=== PATIENT | male | born 1960 | race Two or more races ===

== ENCOUNTER → 2020-01-20 08:00 | Outpatient (BNVA) | payer MEDICARE, MEDICAID, SELFPAY | PROVIDERS: Visit Provider Family Medicine Adult Medicine | DX: M96.1 Postlaminectomy syndrome, not elsewhere classified (principal); M54.12 Radiculopathy, cervical region; Z91.041 Radiographic dye allergy status; Z88.8 Allergy status to other drugs, medicaments and biological substances; Z79.899 Other long term (current) drug therapy | CPT/HCPCS: 99212 ==

== ENCOUNTER → 2020-01-21 09:25 | Outpatient (BNVA) | payer MEDICARE, MEDICAID, SELFPAY | PROVIDERS: PCP Hospitalist; Visit Provider Anesthesiology | DX: M96.1 Postlaminectomy syndrome, not elsewhere classified (principal); M54.12 Radiculopathy, cervical region; M48.061 Spinal stenosis, lumbar region without neurogenic claudication; M54.16 Radiculopathy, lumbar region | CPT/HCPCS: 99212 ==

== ENCOUNTER 2020-02-17 08:44 | Emergency (ER) | payer MEDICARE, MEDICAID, SELFPAY ==
[2020-02-17 09:09] VITALS: BP 120/78; PULSE 95; RESP 14; TEMP 36.9; O2SAT 97; BMI 29.5
--- NOTE | 2020-02-17 09:16 | ED_ITS ---
HPI - General Adult General Chief complaint: General Medical Stated complaint: joint pain Time Seen by Provider: 02/17/20 08:48 Source: patient Mode of arrival: ambulatory Limitations: no limitations History of Present Illness HPI narrative: Patient presents to ED for joint pain. Patient states pain in bilateral ankles, knees, hands, elbow joints. Patient also states back and neck pain. Patient states having symptoms since last night. patient states having chills. Patient states no fever, chills, coughing up blood, recent trauma. Patient admits to cough. Patient admits to history of arthritis. Related Data Home Medications Medication Instructions Recorded Confirmed linagliptin 5 mg tablet 5 mg PO DAILY 01/29/20 01/29/20 skin cleanser combination no.8 ea TOPICAL 01/29/20 01/29/20 Previous Rx's Medication Instructions Recorded omeprazole 40 mg capsule,delayed 40 mg PO BID 30 Days #60 cap 01/05/20 release methadone 5 mg tablet 5 mg PO Q12H 30 Days #60 tab 01/20/20 naloxone 4 mg/actuation nasal spray 1 spray INTRANASAL Q2M #1 ea 01/20/20 prednisone 10 mg tablet 10 mg PO DAILY 8 Days #20 tab 01/29/20 naproxen 500 mg PO BID PRN #20 tab 02/17/20 Allergies Allergy/AdvReac Type Severity Reaction Status Date / Time fentanyl Allergy Intermediate itching Verified 01/29/20 12:00 morphine [Amber] Allergy Intermediate itch Verified 01/29/20 12:00 Iodinated Contrast Media Allergy Mild DIFFICULTY Verified 01/29/20 11:47 [IV Dye, Iodine Containing] BREATHING,VOMITING metformin AdvReac Intermediate stomach Verified 01/29/20 12:[address] scan dye Allergy Severe shortness Uncoded 01/29/20 12:00 of breath MRI DYE Allergy Severe Shortness Uncoded 01/29/20 12:00 of Breath Review of Systems Review of Systems: Yes all other systems are reviewed and are negative Constitutional: Constitutional: Reports as per HPI, Reports no additional constitutional complaints, Reports body ache(s), Reports chills, Denies fever(s) and Reports headache(s) ( Mild) Eyes: Eyes: Reports as per HPI and Reports no additional eye complaints ENT: Reports system reviewed and no additional complaints, except as documented, Reports as per HPI and Reports headache(s) ( Mild) Cardiovascular: Cardiovascular: Reports as per HPI and Reports no additional cardiovascular complaints Respiratory: Respiratory: Reports as per HPI, Reports no additional respiratory complaints and Reports cough Gastrointestinal: Gastrointestinal: Reports as per HPI and Reports no additional gastrointestinal complaints Genitourinary: Genitourinary: Reports no additional male genitourinary complaints and Reports as per HPI Musculoskeletal: Musculoskeletal: Reports no additional musculoskeletal complaints, Reports as per HPI, Reports back pain, Reports myalgias and Reports arthralgias Neurologic: Reports system reviewed and no additional complaints, except as documented, Reports as per HPI and Reports headache(s) ( Mild) Psychiatric: Psychiatric: Reports no additional psychiatric complaints and Reports as per HPI [facility] Past Medical History Medical History Arthritis Cervical radiculopathy Diabetes High cholesterol Lumbar post-laminectomy syndrome Lumbar radiculopathy, chronic Lumbar spinal stenosis Social History Social History Advance Directives: No Advance Directives Information Provided: No Physical Exam Vital Signs: Vital Signs: Last Vital Signs Temp 98.5 F 02/17/20 09:09 Pulse 95 02/17/20 09:09 Resp 14 02/17/20 09:09 BP 120/78 02/17/20 09:09 Pulse Ox 97 02/17/20 09:09 Body Mass Index 29.5 Const: General: cooperative, healthy appearing, comfortable, no acute distress, well developed, alert and awake Orientation/consciousness: patient oriented x3 HENMT: Head: Yes normal to inspection and Yes No palpable skull fracture present Ears: hearing grossly normal bilaterally, external ears normal and TM's normal bilaterally Face and sinus: Yes normal facial exam and Yes sinuses nontender Mouth: Normal oral and palatal mucosa present and lip normal Teeth and gingiva: dentition normal and gingiva normal Throat: Yes posterior oropharynx normal, Yes tonsils normal and Yes uvula midline Eyes: General: appearance normal, both eyes and all related structures Neck: Neck: Yes normal visual inspection, Yes full ROM, Yes no lymphadenopathy, Yes no meningeal signs, Yes trachea midline, Yes supple and No tender Chest: Chest palpation & inspection: normal inspection of the chest and no localized rib tenderness Resp: Effort & Inspection: normal respiratory effort and able to speak in complete sentences Auscultation: clear to auscultation bilaterally Cardio: Jugular venous distension: no JVD Heart sounds: S1 normal heart sound present and S2 normal heart sound present GI: Inspection: Yes normal to inspection and No abdominal wall ecchymosis Palpation (GI): Soft to palpation, not firm, nontender, no guarding and not rigid : General: No CVA tenderness and Yes no CVA tenderness Back/Spine/Pelvis: Back: no CVA tenderness, No CVA tenderness and No back tenderness Skin: General skin exam: no rashes or lesions noted Neuro: General: patient oriented x3, gait normal, no meningeal signs and CN's II-XI intact bilaterally Extrem: Other: negative for any swelling, redness, ecchymosis,warmth or deformities of joints all extremities. General: Yes normal to inspection and Yes full ROM Course Course Course Narrative: history physical exam indicate more viral syndrome. No need for x-ray of extremities. Patient given Motrin for pain. Patient will be swabbed for COVID-19 virus Reevaluation(s) Reevaluation #1: patient is on for COVID-19 virus. Patient educated on self- isolation. Patient given Motrin for pain Time: 09:22 Medical Decision Making [facility] Narrative Medical decision making narrative: viral syndrome Discharge Plan Discharge Clinical Impression: Acute viral syndrome Patient Disposition: Home, Self-Care Instructions: Viral Syndrome (ED) Additional Instructions: return to the ED immediately for weakness, intractable fever, chills, chest pain, shortness of breath, coughing up blood, redness/swelling / warmth of the joints, or any other concerning symptoms. recommend 14 days self-isolation if COVID test come back positive. Prescriptions: New naproxen 500 mg tablet 500 mg PO BID PRN (Reason: pain) Qty: 20 RF: 0 No Action omeprazole 40 mg capsule,delayed release(DR/EC) 40 mg PO BID 30 Days Qty: 60 RF: 3 Zanfel Cleanser topical RF: 0 Tradjenta 5 mg tablet 5 mg PO DAILY RF: 0 prednisone 10 mg tablet 10 mg PO DAILY 8 Days Qty: 20 RF: 0 methadone 5 mg tablet 5 mg PO Q12H 30 Days Qty: 60 RF: 0 Narcan 4 mg/actuation spray,non-aerosol 1 spray intranasal Q2M Qty: 1 RF: 0 Referrals: Isela Bernstein NP [Primary Care Provider] - 2 days ( Viral syndrome. COVID- 19 test pending) Interventions: ED Discharge Assessment Last Done: 12/01/20 09:44 Discharge Date/Time: 02/17/20 09:44 Print Language: Nepali
[2020-02-17] MEDS: Ibuprofen 800 MG TABLET PO (09:25)
== END 2020-02-17 09:44 | disposition home or self-care (01) ==
PROVIDERS: Physician Assistant; Emergency Provider Emergency Medicine; PCP Hospitalist
DX: B34.9 Viral infection, unspecified (principal); Z20.828 Contact with and (suspected) exposure to other viral communicable diseases; E11.9 Type 2 diabetes mellitus without complications
CPT/HCPCS: 99283; U0003

== ENCOUNTER 2020-03-02 05:35 | Outpatient (REF) | payer MEDICARE, MEDICAID, SELFPAY | END 2020-03-02 05:36 | disposition home or self-care (01) | LOC: HO.RADIR 05:35 | PROVIDERS: Visit Provider Anesthesiology | DX: Z13.89 Encounter for screening for other disorder (principal) ==

== ENCOUNTER 2020-03-09 06:18 | Outpatient (REF) | payer MEDICARE, MEDICAID, SELFPAY | END 2020-03-09 06:19 | disposition home or self-care (01) | LOC: HO.LAB 06:18 | PROVIDERS: PCP Hospitalist; Visit Provider Internal Medicine | DX: Z20.828 Contact with and (suspected) exposure to other viral communicable diseases (principal) | CPT/HCPCS: C9803; U0003 ==

== ENCOUNTER → 2020-03-18 08:55 | Outpatient (BNVA) | payer MEDICARE, MEDICAID, SELFPAY | PROVIDERS: PCP Hospitalist; Visit Provider Family Medicine Adult Medicine | DX: M54.16 Radiculopathy, lumbar region (principal); M96.1 Postlaminectomy syndrome, not elsewhere classified | CPT/HCPCS: 99212 ==

== ENCOUNTER → 2020-04-15 11:18 | Outpatient (BNVA) | payer MEDICARE, MEDICAID, SELFPAY | PROVIDERS: PCP Hospitalist; Visit Provider Nurse Practitioner | DX: Z13.89 Encounter for screening for other disorder (principal) | CPT/HCPCS: Q3014 ==

== ENCOUNTER → 2020-04-21 08:02 | Outpatient (BNVA) | payer MEDICARE, MEDICAID, SELFPAY | PROVIDERS: PCP Hospitalist; Visit Provider Nurse Practitioner Family | DX: M96.1 Postlaminectomy syndrome, not elsewhere classified (principal); M54.16 Radiculopathy, lumbar region; M54.12 Radiculopathy, cervical region; M48.061 Spinal stenosis, lumbar region without neurogenic claudication; Z79.899 Other long term (current) drug therapy | CPT/HCPCS: 99212 ==

== ENCOUNTER 2020-11-12 23:04 | Emergency (ER) | payer MEDICARE, MEDICAID, SELFPAY ==
--- NOTE | 2020-11-12 23:32 | PC.NURSE ---
PT CALLED, NOT IN WAITING ROOM.
--- NOTE | 2020-11-12 23:48 | PC.NURSE ---
SECOND CALL, NOT IN WR.
== END 2020-11-13 00:49 | disposition left against medical advice (07) ==
PROVIDERS: Emergency Provider Emergency Medicine; PCP Hospitalist
DX: M54.9 Dorsalgia, unspecified (principal); M79.606 Pain in leg, unspecified

== ENCOUNTER → 2020-11-16 08:06 | Outpatient (BNVA) | payer MEDICARE, MEDICAID, SELFPAY | PROVIDERS: PCP Hospitalist; Visit Provider Family Medicine Adult Medicine | DX: M96.1 Postlaminectomy syndrome, not elsewhere classified (principal); M54.12 Radiculopathy, cervical region | CPT/HCPCS: 99212 ==

== ENCOUNTER 2020-11-21 22:16 | Emergency (ER) | payer MEDICARE, MEDICAID, SELFPAY ==
[2020-11-21 22:20] VITALS: BP 169/57; PULSE 87; RESP 18; TEMP 36.6; O2SAT 95; BMI 28.2
--- NOTE | 2020-11-21 23:31 | ED_ITS ---
HPI - Back Pain/Injury General Chief Complaint: Back Pain/Injury Stated Complaint: back pain Time Seen by Provider: 11/21/20 22:59 Source: patient Mode of arrival: ambulatory Limitations: no limitations History of Present Illness HPI Narrative: Patient comes to emergency room complaining of lower back pain radiating towards both legs. Patient states he has had chronic back pain in the past, including back surgeries. Patient states that yesterday he was helping a friend push a car, which exacerbated his pain. Patient denies any urinary retention/incontinence. Patient states that the pain is also exacerbated more than usual because he is taking a very small dose of methadone because he just recently moved from a different state and he is waiting to be seen as a new patient in the clinic, he is running out of methadone has been rationing his doses. Patient denies fever, no chills Related Data Home Medications Medication Instructions Recorded Confirmed sucralfate 1 gram tablet (Carafate) 2 g PO DAILY tab 04/15/20 11/16/20 Previous Rx's Medication Instructions Recorded naloxone 4 mg/actuation nasal 1 spray INTRANASAL Q2M #1 ea 01/20/20 spray (Narcan) naproxen 500 mg tablet 500 mg PO BID PRN 30 Days #60 tab 03/25/20 methadone 5 mg tablet 5 mg PO Q12H 30 Days #60 tab 04/21/20 linagliptin 5 mg tablet (Tradjenta) 5 mg PO DAILY #90 tab 04/23/20 omeprazole 40 mg capsule,delayed 40 mg PO BID #180 cap 09/28/20 release acetaminophen 500 mg tablet 500 mg PO Q6H PRN #20 tab 11/21/20 Allergies Allergy/AdvReac Type Severity Reaction Status Date / Time fentanyl Allergy Intermediate itching Verified 11/16/20 08:35 morphine [Amber] Allergy Intermediate itch Verified 11/16/20 08:35 Iodinated Contrast Media Allergy Mild DIFFICULTY Verified 11/16/20 08:35 [IV Dye, Iodine Containing] BREATHING,VOMITING metformin AdvReac Intermediate stomach Verified 11/16/20 08:35 pain Review of Systems Review of Systems: Constitutional : No Weight loss, No Fever, No Chills, No Night Sweats, No Fatigue, No Malaise ENT/Mouth : No Hearing loss, No Ear Pain, No Nasal Congestion, No Sinus Pain, No Hoarseness, No sore throat, No Rhinorrhea, No Swallowing Difficulty Eyes: No Eye Pain, No Swelling, No Redness, No Foreign Body, No Discharge, No Vision Changes Cardiovascular : No Chest Pain, No SOB, No Dyspnea on Exertion, No Orthopnea, No Edema, No Palpitations Respiratory : No Cough, No Sputum, No Wheezing, No Smoke Exposure, No Dyspnea Gastrointestinal : No Nausea, No Vomiting, No Diarrhea, No Constipation, No abdominal Pain, No Hematochezia, No Melena Genitourinary : no irregular bleeding, No Dysuria, No Urinary Frequency, No Hematuria, No Urinary Incontinence, No Urgency, No Flank Pain, No Urinary Flow Changes, No Hesitancy Musculoskeletal : Complaining of acute on chronic back pain exacerbated by movement, No joint pain, No Myalgias, No Joint Swelling Skin : No Skin Lesions, No rash Neuro : No Weakness, No Numbness, No Paresthesias, No Loss of Consciousness, No Dizziness, No Headache Psych : No Anxiety/Panic, No Depression, No SI/HI/AH/VH, No Social Issues, Heme/Lymph: No Bruising, No Bleeding,No Lymphadenopathy Endocrine : No Polyuria, No Polydipsia, No Temperature Intolerance [facility] Past Medical History Medical History Arthritis Cervical radiculopathy Diabetes High cholesterol Lumbar post-laminectomy syndrome Lumbar radiculopathy, chronic Lumbar spinal stenosis Surgical History History of cholecystectomy History of elbow surgery History of lumbar fusion Family History Family History Father Liver problem Alcoholism Mother No problems noted. Brother CAD (coronary artery disease) Social History Social History Household Members: Spouse and Children Alcohol intake: never Advance Directives: No Physical Exam Vital Signs: Vital Signs: Last Vital Signs Temp 98 F 11/21/20 22:20 Pulse 87 11/21/20 22:20 Resp 18 11/21/20 22:20 BP 169/57 H 11/21/20 22:20 Pulse Ox 95 11/21/20 22:20 Body Mass Index 28.2 Const: Other: Appearance: Alert. Oriented X3. No acute distress. Eyes: Pupils equal, round and reactive to light. ENT: Pharynx normal. Neck: Normal inspection. Neck supple. No lymph nodes noted. No crepitus CVS: Normal heart rate and rhythm. Pulses normal. Normal S1 and S2 Respiratory: No respiratory distress. Breath sounds normal. No Wheezing. No rales Abdomen: Soft and nontender. No rigidity. No distention. good BS x4 Skin: Skin warm and dry. Normal skin color. Normal skin turgor. Back: Negative straight leg raise test bilaterally mild discomfort flexing and extending the back, Extremities: No lower extremity edema. No lower extremity edema. No Lacerations. No Rash Neuro: Oriented X 3. No motor deficit. No sensory deficit. Moving all extermities. No slurred speech. Course Course Course Narrative: Patient's pain is musculoskeletal, cauda equina not suspected. Patient was given a dose of IM Decadron, patient has gastritis and cannot take Toradol. Patient given 1 dose of p.o. Tylenol Discharge Plan Discharge Clinical Impression: Chronic lower back pain Patient Disposition: Home, Self-Care Instructions: Low Back Strain (ED), Lower Back Exercises (ED) Additional Instructions: Please follow-up with your primary care physician tomorrow. If you have any worsening or new symptoms, please return to the emergency room or call 911 Prescriptions: New acetaminophen 500 mg tablet 500 mg PO Q6H PRN (Reason: pain) Qty: 20 RF: 0 No Action linagliptin [Tradjenta] 5 mg tablet 5 mg PO DAILY Qty: 90 RF: 0 omeprazole 40 mg capsule,delayed release(DR/EC) 40 mg PO BID Qty: 180 RF: 0 naproxen 500 mg tablet 500 mg PO BID PRN (Reason: pain) 30 Days Qty: 60 RF: 2 Narcan 4 mg/actuation spray,non-aerosol 1 spray intranasal Q2M Qty: 1 RF: 0 sucralfate [Carafate] 1 gram tablet 2 g PO DAILY RF: 0 methadone 5 mg tablet 5 mg PO Q12H 30 Days Qty: 60 RF: 0
[2020-11-21] MEDS: dexAMETHasone sod phosphate 4 MG/ML VIAL 6 MG IM (23:42)
[2020-11-21] MEDS: Acetaminophen 325 MG TABLET 650 MG PO (23:42)
== END 2020-11-22 00:20 | disposition home or self-care (01) ==
PROVIDERS: Emergency Provider Emergency Medicine; PCP Hospitalist
DX: M54.5 Low back pain (principal); Z79.899 Other long term (current) drug therapy
CPT/HCPCS: 96372; 99284; J1100

== ENCOUNTER → 2020-11-25 08:00 | Outpatient (REF) | payer MEDICARE, MEDICAID, SELFPAY ==
--- NOTE | 2020-11-25 09:12 | ECG_ITS ---
Test Reason : RADICULOPATHY CERVICAL REG. Blood Pressure : / mmHG Vent. Rate : 078 BPM Atrial Rate : 078 BPM P-R Int : 148 ms QRS Dur : 114 ms QT Int : 376 ms P-R-T Axes : 061 -53 040 degrees QTc Int : 428 ms Normal sinus rhythm Incomplete right bundle branch block Left anterior fascicular block Minimal voltage criteria for LVH, may be normal variant ( R in aVL ) Abnormal ECG When compared with ECG of 10-NOV-2019 08:55, Incomplete right bundle branch block is now Present Referred By: Carlos Eduardo Baxter Electronically Signed By:TITUS ALANIZ
== END ==
LOC: HO.CARD 08:00
PROVIDERS: PCP Hospitalist; Visit Provider Family Medicine Adult Medicine
DX: M54.12 Radiculopathy, cervical region (principal); M96.1 Postlaminectomy syndrome, not elsewhere classified
CPT/HCPCS: 93005; 99212

== ENCOUNTER 2020-11-25 09:39 | Emergency (ER) | payer MEDICARE, MEDICAID, SELFPAY | END 2020-11-25 10:24 | disposition left against medical advice (07) | PROVIDERS: Emergency Provider Emergency Medicine; PCP Hospitalist | DX: R10.9 Unspecified abdominal pain (principal) ==

== ENCOUNTER 2020-11-26 06:15 | Emergency (ER) | payer MEDICARE, MEDICAID, SELFPAY ==
--- NOTE | ~2020-11-26 | CT_ITS ---
EXAMINATION: CT ABDOMEN AND PELVIS WITHOUT CONTRAST CLINICAL INFORMATION: Epigastric, right lower quadrant pain COMPARISON: 11/17/2018 TECHNIQUE: Multidetector volumetric imaging was performed from the lung bases through the pubic symphysis. Sagittal and coronal reformatted images were obtained on the technologist workstation. This CT examination was performed using dose optimization techniques as appropriate, variously including the following: *Automated exposure control *Adjustment of mA and/or kV according to patient size (this includes techniques or standardized protocols for targeted exams where dose is matched to indication/reason for exam; i.e. extremities or head) *Use of iterative reconstruction technique FINDINGS: The lack of intravenous contrast limits evaluation of the solid visceral organs including the liver, spleen, pancreas, and kidneys. LUNG BASES: The visualized lung bases are unremarkable. LIVER, GALLBLADDER, AND BILIARY TREE: Liver is diffusely hypoattenuating consistent with diffuse hepatic steatosis. Borderline hepatomegaly. No suspicious focal liver lesion. Status post cholecystectomy. PANCREAS: Limited non-contrast evaluation is normal. No chapincito-pancreatic fluid. SPLEEN: Limited non-contrast evaluation is normal. ADRENAL GLANDS: Normal; no adrenal mass. KIDNEYS AND URETERS: 5 mm nonobstructing left lower pole calculus, perhaps slightly larger than on the prior study. No hydronephrosis or solid mass. GASTROINTESTINAL TRACT: Stomach and small bowel are nondilated. Normal appendix. Diverticulosis without evidence of colitis or diverticulitis. ABDOMINAL WALL: No hernia seen. LYMPH NODES: No pathologically enlarged lymph nodes in the abdomen or pelvis. VASCULAR: Normal caliber abdominal aorta. BLADDER: Unremarkable. PELVIC VISCERA: Mild prostatomegaly. OSSEOUS STRUCTURES: Prior discectomy and fusion at L5-S1. No acute or suspicious osseous abnormality. Lower lumbar facet arthropathy. Bilateral L5 pars defects. CT/CT abdomen pelvis wo con IMPRESSION: No acute CT findings.
[2020-11-26 06:33] VITALS: BP 142/84; PULSE 87; RESP 16; TEMP 36.6; O2SAT 97; BMI 27.7
--- NOTE | 2020-11-26 06:53 | ED_ITS ---
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 Mode of arrival: ambulatory Limitations: no limitations History of Present Illness MD elicited complaint: abdominal pain Pertinent past history: gastritis Onset (ago): month(s) (1) Pain Consistency: intermittent Location: epigastric and periumbilical Severity: moderate Quality: burning Radiation: none Migration to: no migration Exacerbating factors: eating Relieving factors: nothing Context: history of similar episodes Associated symptoms: diarrhea Treatments prior to arrival: antacids Related Data Home Medications Medication Instructions Recorded Confirmed sucralfate 1 gram tablet (Carafate) 2 g PO DAILY tab 04/15/20 11/25/20 Previous Rx's Medication Instructions Recorded naloxone 4 mg/actuation nasal 1 spray INTRANASAL Q2M #1 ea 01/20/20 spray (Narcan) naproxen 500 mg tablet 500 mg PO BID PRN 30 Days #60 tab 03/25/20 linagliptin 5 mg tablet (Tradjenta) 5 mg PO DAILY #90 tab 04/23/20 omeprazole 40 mg capsule,delayed 40 mg PO BID #180 cap 09/28/20 release acetaminophen 500 mg tablet 500 mg PO Q6H PRN #20 tab 11/21/20 buprenorphine 7.5 mcg/hour weekly 1 patch TRANSDERMAL Q7D 28 Days #4 11/25/20 transdermal patch (Butrans) ea methadone 5 mg tablet 5 mg PO Q12H 30 Days #60 tab 11/25/20 famotidine 20 mg tablet (Pepcid) 20 mg PO DAILY PRN #30 tab 11/26/20 Allergies Allergy/AdvReac Type Severity Reaction Status Date / Time fentanyl Allergy Intermediate itching Verified 11/25/20 08:30 morphine [Amber] Allergy Intermediate itch Verified 11/25/20 08:30 Iodinated Contrast Media Allergy Mild DIFFICULTY Verified 11/25/20 08:30 [IV Dye, Iodine Containing] BREATHING,VOMITING metformin AdvReac Intermediate stomach Verified 11/25/20 08:30 pain Review of Systems Review of Systems Constitutional : No Weight loss, No Fever, No Chills ENT/Mouth : No sore throat, No Rhinorrhea Eyes: No Swelling, No Redness Cardiovascular : No Chest Pain, No SOB, NoEdema Respiratory : No Cough, No Sputum, No Wheezing Gastrointestinal : Positive Nausea, no Vomiting, positive Diarrhea, positive abdominal Pain, No Hematochezia, No Melena Genitourinary : No Dysuria, No Urinary Frequency, No Hematuria, No Urgency Musculoskeletal : No joint pain, No Myalgias, No Joint Swelling Skin : No Skin Lesions, No rash Neuro : No Weakness, No Numbness, No Dizziness, No Headache Psych : No Anxiety/Panic, No Depression Heme/Lymph: No Bruising, No Lymphadenopathy Endocrine : No Polyuria, No Polydipsia All other systems reviewed and are negative. Physical Exam Vital Signs: Vital Signs: Last Vital Signs Temp 97.8 F 11/26/20 06:33 Pulse 87 11/26/20 06:33 Resp 16 11/26/20 06:33 BP 142/84 H 11/26/20 06:33 Pulse Ox 97 11/26/20 06:33 Body Mass Index 27.7 Appearance: Alert. Oriented X3. No acute distress. Eyes: Pupils equal, round and reactive to light. ENT: Pharynx normal. Neck: Normal inspection. Neck supple. CVS: Normal heart rate and rhythm. Pulses normal. Respiratory: No respiratory distress. Breath sounds normal. Abdomen: Soft and mild epigastric/RLQ ttp no rebound or guarding Skin: Skin warm and dry. Normal skin color. Normal skin turgor. Extremities: No lower extremity edema. No calf ttp Neuro: Oriented X 3. No motor deficit. No sensory deficit. Course Course Course Narrative: mild bump in LFTS but feels better and no acute findings on CT Scan will refer to PCP and start on pepcid as well MDM - Abdominal Pain MDM Narrative Medical decision making narrative: 60 yo male with chronic back pain GERD on PPI and carafate comes in with 1 month worsening pain and burning - reports compliance with meds. Has had diarrhea now for 2 days. At this time labs, IVF, supportive medications, CT scan for mass ordered. Dispo per results and findings. Lab Data Result diagrams: 11/26/20 08:01 11/26/20 08:00 Labs: Lab Results 11/26/20 11/26/20 11/26/20 Range/Units 08:00 08:01 08:01 WBC 4.7 L (4.8-10.8) X10*3/uL RBC 4.67 (4.60-5.80) X10*6/uL Hgb 13.9 L (14.0-18.0) g/dl Hct 41.8 L (42-52) % MCV 89.5 (80-98) fL MCH 29.8 (27.0-33.0) pg MCHC 33.3 (31.0-36.0) g/dl RDW 12.8 (11.0-16.0) % Plt Count 186 (160-400) X10*3/uL MPV 10.8 (9.4-12.4) fL Immature Gran % (Auto) 0.4 (0.0-0.4) % Neut % (Auto) 56.8 (45-73) % Lymph % (Auto) 31.6 (20-40) % [place] % (Auto) 8.3 (2-11) % Eos % (Auto) 2.5 (0-4) % Baso % (Auto) 0.4 (0-2) % Lymph # (Auto) 1.5 (1.2-4.9) X10*3/uL [place] # (Auto) 0.4 (0.1-1.2) X10*3/uL Eos # (Auto) 0.1 (0.0-0.4) X10*3/uL Baso # (Auto) 0.0 (0.0-0.2) X10*3/uL Abs Immat Gran (auto) 0.02 (0.00-0.03) X10*3/uL Absolute Neuts (auto) 2.7 (2.0-8.3) X10*3/uL Absolute Nucleated RBC 0.000 (0.0-0.012) X10*3/uL Nucleated RBC % (auto) 0.0 (0.0-0.2) /100WBC Sodium 139 (135-145) mmol/L Potassium 4.5 (3.3-5.1) mmol/L Chloride 102 (96-108) mmol/L Carbon Dioxide 31 H (22-29) mmol/L Anion Gap 11 L (12-20) BUN 19 H (9-16) mg/dL Creatinine 0.95 (0.5-1.4) mg/dL Estim Creat Clear Calc 98.5 Estimated GFR > 60 Random Glucose 268 H (60-115) mg/dL Calcium 9.6 (8.4-10.2) mg/dL Magnesium 2.3 (1.6-2.6) mg/dL Total Bilirubin 0.9 (0.0-1.0) mg/dL Direct Bilirubin 0.3 (0.0-0.5) mg/dL AST 50 H (5-37) U/L ALT 100 H (0-40) U/L Alkaline Phosphatase 76 (39-117) U/L Troponin I High Sens < 3.5 (<3.5-35.0) ng/L Total Protein 7.2 (6.5-8.0) g/dL Albumin 4.4 (3.5-5.0) g/dL Lipase 29 (8-78) U/L Urine Color Urine Appearance Urine pH (5.0-8.0) Ur Specific [place] (1.005-1.025) Urine Protein (NEG-TRACE) MG/DL Urine Glucose (UA) (NEG) MG/DL Urine Ketones (NEG) MG/DL Urine Blood (NEG) Urine Nitrite (NEG) Ur Leukocyte Esterase (NEG) Urine RBC (0) /HPF Urine WBC (0-4) /HPF Ur Squamous Epith Cells /LPF Urine Bacteria /LPF COVID-19 (LISETH) (Negative) COVID-19 Clin Com 11/26/20 11/26/20 Range/Units 08:02 08:03 WBC (4.8-10.8) X10*3/uL RBC (4.60-5.80) X10*6/uL Hgb (14.0-18.0) g/dl Hct (42-52) % MCV (80-98) fL MCH (27.0-33.0) pg MCHC (31.0-36.0) g/dl RDW (11.0-16.0) % Plt Count (160-400) X10*3/uL MPV (9.4-12.4) fL Immature Gran % (Auto) (0.0-0.4) % Neut % (Auto) (45-73) % Lymph % (Auto) (20-40) % [place] % (Auto) (2-11) % Eos % (Auto) (0-4) % Baso % (Auto) (0-2) % Lymph # (Auto) (1.2-4.9) X10*3/uL [place] # (Auto) (0.1-1.2) X10*3/uL Eos # (Auto) (0.0-0.4) X10*3/uL Baso # (Auto) (0.0-0.2) X10*3/uL Abs Immat Gran (auto) (0.00-0.03) X10*3/uL Absolute Neuts (auto) (2.0-8.3) X10*3/uL Absolute Nucleated RBC (0.0-0.012) X10*3/uL Nucleated RBC % (auto) (0.0-0.2) /100WBC Sodium (135-145) mmol/L Potassium (3.3-5.1) mmol/L Chloride (96-108) mmol/L Carbon Dioxide (22-29) mmol/L Anion Gap (12-20) BUN (9-16) mg/dL Creatinine (0.5-1.4) mg/dL Estim Creat Clear Calc Estimated GFR Random Glucose (60-115) mg/dL Calcium (8.4-10.2) mg/dL Magnesium (1.6-2.6) mg/dL Total Bilirubin (0.0-1.0) mg/dL Direct Bilirubin (0.0-0.5) mg/dL AST (5-37) U/L ALT (0-40) U/L Alkaline Phosphatase (39-117) U/L Troponin I High Sens (<3.5-35.0) ng/L Total Protein (6.5-8.0) g/dL Albumin (3.5-5.0) g/dL Lipase (8-78) U/L Urine Color YELLOW Urine Appearance CLEAR Urine pH 6.5 (5.0-8.0) Ur Specific [place] 1.020 (1.005-1.025) Urine Protein NEG (NEG-TRACE) MG/DL Urine Glucose (UA) >=1000 H (NEG) MG/DL Urine Ketones NEG (NEG) MG/DL Urine Blood NEG (NEG) Urine Nitrite NEG (NEG) Ur Leukocyte Esterase NEG (NEG) Urine RBC 0 (0) /HPF Urine WBC 0-2 (0-4) /HPF Ur Squamous Epith Cells TRACE /LPF Urine Bacteria NONE /LPF COVID-19 (LISETH) Negative (Negative) COVID-19 Clin Com See Note ECG Data Attestation: I personally reviewed and interpreted this ECG as follows: ECG interpretation date: 11/26/20 ECG interpretation time: 07:31 Interpretation: Rate: 73 Rhythm: NSR [place]: left, LVH Normal P waves. Normal RYLEE. slightly widened QRS complex. ST T wave : normal no JOSE qTC: normal prior studies: no acute ischemia The study has been interpreted contemporaneously by me. . Discharge Plan Discharge Clinical Impression: Elevated liver enzymes Gastritis Qualifiers: Gastritis type: unspecified gastritis Chronicity: acute Gastritis bleeding: without bleeding Qualified Code(s): K29.00 - Acute gastritis without bleeding Patient Disposition: Home, Self-Care Instructions: Gastritis (ED) Additional Instructions: return to ED for any worsening symptoms or concerns continue omeprazole and carafate follow up next week with your doctor to repeat liver function tests Prescriptions: New famotidine [Pepcid] 20 mg tablet 20 mg PO DAILY PRN (Reason: abdominal discomfort) Qty: 30 RF: 0 No Action linagliptin [Tradjenta] 5 mg tablet 5 mg PO DAILY Qty: 90 RF: 0 omeprazole 40 mg capsule,delayed release(DR/EC) 40 mg PO BID Qty: 180 RF: 0 acetaminophen 500 mg tablet 500 mg PO Q6H PRN (Reason: pain) Qty: 20 RF: 0 naproxen 500 mg tablet 500 mg PO BID PRN (Reason: pain) 30 Days Qty: 60 RF: 2 Narcan 4 mg/actuation spray,non-aerosol 1 spray intranasal Q2M Qty: 1 RF: 0 sucralfate [Carafate] 1 gram tablet 2 g PO DAILY RF: 0 buprenorphine [Butrans] 7.5 mcg/hour patch weekly 1 patch transdermal Q7D 28 Days Qty: 4 RF: 0 methadone 5 mg tablet 5 mg PO Q12H 30 Days Qty: 60 RF: 0 Referrals: Isela Bernstein NP [Primary Care Provider] - 3 days Stand Alone Forms: Work/School Release [facility] Past Medical History Attestation statement: The following information was validated with the patient. Medical History Arthritis Cervical radiculopathy Diabetes High cholesterol Lumbar post-laminectomy syndrome Lumbar radiculopathy, chronic Lumbar spinal stenosis Surgical History History of cholecystectomy History of elbow surgery History of lumbar fusion Family History Family History Father Liver problem Alcoholism Mother No problems noted. Brother CAD (coronary artery disease) Social History Social History (Updated 11/26/20 @ 07:16 by Kalyn Barnett DO) Household Members: Spouse and Children Alcohol intake: never Patient Tobacco Use Status: Never used Tobacco Use of substances other than those prescribed or required for medical reasons: No Advance Directives: No Advance Directives Information Provided: No
--- NOTE | 2020-11-26 07:02 | ECG_ITS ---
Test Reason : ABDOMINAL PAIN Blood Pressure : / mmHG Vent. Rate : 073 BPM Atrial Rate : 073 BPM P-R Int : 148 ms QRS Dur : 116 ms QT Int : 384 ms P-R-T Axes : 042 -53 032 degrees QTc Int : 423 ms Normal sinus rhythm Left anterior fascicular block Left ventricular hypertrophy with QRS widening Abnormal ECG When compared with ECG of 25-NOV-2020 09:17, No significant change was found Referred By: Kalyn Barnett Electronically Signed By:TITUS ALANIZ
[2020-11-26] MEDS: Magnesium Hydrox/Alum Hydrox 30 ML ORAL.SUSP PO (08:09)
[2020-11-26] MEDS: Lidocaine HCl Viscous 2 % 15 ML SOLUTION MUCOUS MEM (08:09)
[2020-11-26] MEDS: Famotidine/PF 20 MG/2 ML VIAL IVPUSH (08:09)
[2020-11-26] MEDS: 0.9 % Sodium Chloride 1,000 ML 999 ML IVCONT (08:09)
[2020-11-26 08:10] LABS: MANUAL DIFF FLAG NO
[2020-11-26 08:12] LABS: Basophils Percent Auto 0.4 % (0-2); Eosinophils Absolute Auto 0.1 X10*3/uL (0.0-0.4); Eosinophils Percent Auto 2.5 % (0-4); Hematocrit 41.8 % (42-52); Hemoglobin 13.9 g/dl (14.0-18.0); Imm Gran Abs Auto 0.02 X10*3/uL (0.00-0.03); Imm Gran Pct Auto 0.4 % (0.0-0.4); Lymphocytes Absolute Auto 1.5 X10*3/uL (1.2-4.9); Lymphocytes Percent Auto 31.6 % (20-40); Mean Corpuscular HGB Conc 33.3 g/dl (31.0-36.0); Mean Corpuscular Hemoglobin 29.8 pg (27.0-33.0); Mean Corpuscular Volume 89.5 fL (80-98); Mean Platelet Volume 10.8 fL (9.4-12.4); Monocytes Absolute Auto 0.4 X10*3/uL (0.1-1.2); Monocytes Percent Auto 8.3 % (2-11); Neutrophils Absolute Auto 2.7 X10*3/uL (2.0-8.3); Neutrophils Percent Auto 56.8 % (45-73); Platelet Count 186 X10*3/uL (160-400); Red Blood Count 4.67 X10*6/uL (4.60-5.80); Red Cell Distribution Width 12.8 % (11.0-16.0); White Blood Count 4.7 X10*3/uL (4.8-10.8)
[2020-11-26 08:13] LABS: Appearance Urine CLEAR; Color Urine YELLOW; Glucose Urine UA >=1000 MG/DL (NEG); Leukocyte Esterase Urine NEG (NEG); Nitrite Urine NEG (NEG); PH 6.5 (5.0-8.0); Urine Blood NEG (NEG); Urine Ketones NEG (NEG); Urine Protein NEG (NEG-TRACE)
[2020-11-26 08:22] LABS: RBC Urine 0 /HPF (0); Squamous Epithelial Cell Urine TRACE /LPF; WBC Urine 0-2 /HPF (0-4)
[2020-11-26 08:29] LABS: COVID-19 Test Negative (Negative); IDNOW Serial# 9DD0AD1C
[2020-11-26 08:35] LABS: Alanine Aminotransferase 100 U/L (0-40); Albumin Level 4.4 g/dL (3.5-5.0); Alkaline Phosphatase 76 U/L (39-117); Anion Gap 11 (12-20); Aspartate Amino Transferase 50 U/L (5-37); Bilirubin Direct 0.3 mg/dL (0.0-0.5); Bilirubin Total 0.9 mg/dL (0.0-1.0); Blood Urea Nitrogen 19 mg/dL (9-16); Calcium 9.6 mg/dL (8.4-10.2); Carbon Dioxide 31 mmol/L (22-29); Chloride 102 mmol/L (96-108); Creatinine Clr Calc Pharmacy 98.5; Estimated Glomerular Filt Rate > 60; Glucose Random 268 mg/dL (60-115); Lipase 29 U/L (8-78); Magnesium 2.3 mg/dL (1.6-2.6); Potassium 4.5 mmol/L (3.3-5.1); Sodium 139 mmol/L (135-145); Total Protein 7.2 g/dL (6.5-8.0)
[2020-11-26 08:38] LABS: Troponin-I High Sensitivity < 3.5 ng/L (<3.5-35.0)
[2020-11-26 10:01] VITALS: BP 131/84; PULSE 68; RESP 14; TEMP 36.7; O2SAT 98
== END 2020-11-26 10:05 | disposition home or self-care (01) ==
PROVIDERS: Emergency Provider Emergency Medicine; PCP Hospitalist
DX: K29.00 Acute gastritis without bleeding (principal); R10.13 Epigastric pain; R79.89 Other specified abnormal findings of blood chemistry; Z20.822 Contact with and (suspected) exposure to COVID-19; Z79.899 Other long term (current) drug therapy
CPT/HCPCS: 36415; 74176; 80048; 80076; 81001; 83690; 83735; 84484; 85025; 87635; 93005; 96361; 96374; 99284; 99285

== ENCOUNTER → 2020-12-06 14:21 | Outpatient (BNVA) | payer MEDICARE, MEDICAID, SELFPAY | PROVIDERS: PCP Hospitalist; Visit Provider Nurse Practitioner | DX: R63.4 Abnormal weight loss (principal); K58.0 Irritable bowel syndrome with diarrhea; K21.9 Gastro-esophageal reflux disease without esophagitis; E78.00 Pure hypercholesterolemia, unspecified; E11.9 Type 2 diabetes mellitus without complications; R74.01 Elevation of levels of liver transaminase levels; Z90.49 Acquired absence of other specified parts of digestive tract; Z88.8 Allergy status to other drugs, medicaments and biological substances; Z88.6 Allergy status to analgesic agent; Z91.041 Radiographic dye allergy status | CPT/HCPCS: 99212 ==

== ENCOUNTER 2020-12-09 08:28 | Outpatient (REF) | payer MEDICARE, MEDICAID, SELFPAY ==
[2020-12-09 10:46] LABS: Gamma Glutamyl Transpeptidase 66 U/L (11-51)
[2020-12-09 10:55] LABS: ~HepC Num1 0.12 S/CO (0.00-0.79); ~Hepatitis B Surface Antibody NONREACTIVE (Nonreactive); ~Hepatitis C Antibody Nonreactive (Nonreactive)
[2020-12-09 10:59] LABS: TSH reflex Free T4 0.38 uIU/mL (0.32-4.0)
[2020-12-09 11:06] LABS: HBc Num1 0.09 S/CO (0.00-0.79); HBsAGNum1 0.19 S/CO (0.00-0.99); Hepatitis B Core Antibody Nonreactive (Nonreactive); Hepatitis B Surface Antigen Negative (Negative)
[2020-12-09 11:14] LABS: Monotest Negative (Negative)
[2020-12-10 04:30] LABS: Hepatitis A Antibody IgM 0.43 Index (0-0.79); ~Hepatitis A Antibody IgM Nonreactive (Nonreactive)
[2020-12-11 13:36] LABS: Ceruloplasmin 27 mg/dL (18-36)
[2020-12-13 15:22] LABS: Gliadin Deamidated IgA Ab <1.0 U/mL; Gliadin Deamidated IgG Ab <1.0 U/mL
[2020-12-13 16:01] LABS: Mitochondrial Antibodies NEGATIVE (NEGATIVE)
[2020-12-14 09:27] LABS: Transglutaminase Ab IgG <1.0 U/mL; Transglutaminase IgA <1.0 U/mL
[2020-12-14 23:22] LABS: Smooth Muscle Antibody <20 U (<20)
== END 2020-12-09 08:29 | disposition home or self-care (01) ==
LOC: HO.LAB 08:28
PROVIDERS: PCP Hospitalist; Visit Provider Nurse Practitioner
DX: R63.4 Abnormal weight loss (principal); R74.01 Elevation of levels of liver transaminase levels
CPT/HCPCS: 36415; 82390; 82977; 83516; 84443; 86255; 86256; 86308; 86704; 86706; 86709; 86803; 87340

== ENCOUNTER 2020-12-10 09:10 | Outpatient (REF) | payer MEDICARE, MEDICAID, SELFPAY | END 2020-12-10 09:11 | disposition home or self-care (01) | LOC: HO.LNP 09:10 | PROVIDERS: Visit Provider Nurse Practitioner | DX: R63.4 Abnormal weight loss (principal); R74.01 Elevation of levels of liver transaminase levels | CPT/HCPCS: 87338 ==

== ENCOUNTER → 2020-12-23 08:00 | Outpatient (BNVA) | payer MEDICARE, MEDICAID, SELFPAY | PROVIDERS: Visit Provider Family Medicine Adult Medicine | DX: Z51.81 Encounter for therapeutic drug level monitoring (principal); M54.16 Radiculopathy, lumbar region; M48.061 Spinal stenosis, lumbar region without neurogenic claudication; M54.12 Radiculopathy, cervical region; M96.1 Postlaminectomy syndrome, not elsewhere classified | CPT/HCPCS: 99212 ==

== ENCOUNTER → 2021-01-17 08:34 | Outpatient (BNVA) | payer MEDICARE, MEDICAID, SELFPAY | PROVIDERS: Visit Provider Nurse Practitioner | DX: Z13.89 Encounter for screening for other disorder (principal) | CPT/HCPCS: Q3014 ==

== ENCOUNTER → 2021-01-20 08:11 | Outpatient (BNVA) | payer MEDICARE, MEDICAID, SELFPAY | PROVIDERS: PCP Hospitalist; Visit Provider Family Medicine Adult Medicine | DX: Z51.81 Encounter for therapeutic drug level monitoring (principal); M54.16 Radiculopathy, lumbar region; M48.061 Spinal stenosis, lumbar region without neurogenic claudication; M54.12 Radiculopathy, cervical region; M96.1 Postlaminectomy syndrome, not elsewhere classified | CPT/HCPCS: Q3014 ==

== ENCOUNTER → 2021-02-22 14:04 | Outpatient (BNVA) | payer MEDICARE, MEDICAID, SELFPAY | PROVIDERS: PCP Hospitalist; Visit Provider Family Medicine Adult Medicine | DX: Z51.81 Encounter for therapeutic drug level monitoring (principal); F11.20 Opioid dependence, uncomplicated | CPT/HCPCS: 99211 ==

== ENCOUNTER 2021-03-25 08:57 | Inpatient (IN) | payer MEDICARE, MEDICAID, SELFPAY ==
[2021-03-25] VITALS (9 sets, daily range): BP systolic 96–121; BP diastolic 49–72; PULSE 76–137; RESP 12–18; TEMP 36.8–37.6; O2SAT 85–99; BMI 27.7
--- NOTE | ~2021-03-25 | CT_ITS ---
EXAMINATION: CT CHEST WITHOUT CONTRAST CLINICAL INFORMATION: Cough, fever and shortness of breath COMPARISON: Previous chest x-ray from earlier the same day TECHNIQUE: Multidetector volumetric CT imaging of the chest was done. Axial MIP volume rendering provided. Sagittal and coronal reformatted images were obtained. This CT examination was performed using dose optimization techniques as appropriate, variously including the following: *Automated exposure control *Adjustment of mA and/or kV according to patient size (this includes techniques or standardized protocols for targeted exams where dose is matched to indication/reason for exam; i.e. extremities or head) *Use of iterative reconstruction technique DLP: 305 mGy-cm FINDINGS: LUNGS: There are heterogeneous semisolid nodular opacities right upper lobe and perihilar and superior segment of the right lower lobe. There is a 5 mm calcified superior segment left lower lobe nodule axial image 18 series 4. There is question of a noncalcified 4 mm right lower lobe nodule adjacent to area of increased groundglass attenuation questionable for nodule. MEDIASTINUM: There is a 1 cm nodule in the inferior left lobe of the thyroid gland. According to best practice guidelines, no imaging follow-up is indicated. The heart does not appear enlarged. There is mild coronary artery calcification. There are no enlarged hilar or mediastinal lymph nodes. The thoracic aorta is normal in caliber. There is no pericardial effusion. PLEURA: There is no pleural effusion. No pleural mass or thickening. AXILLA: No lymphadenopathy. UPPER ABDOMEN: The liver is low in attenuation suggestive of fatty infiltration. The gallbladder has been removed. OSSEOUS STRUCTURES: Unremarkable. CT/CT chest wo con IMPRESSION: Small scattered semisolid nodular opacities in the right upper lobe and right lower lobe. This probably represents pneumonia. Fleischner guidelines were followed.
--- NOTE | ~2021-03-25 | NM_ITS ---
EXAMINATION: PULMONARY PERFUSION STUDY CLINICAL INFORMATION: Dyspnea, tachycardia, question pulmonary embolism. Allergy to contrast dye. COMPARISON: No previous lung scan is available for comparison. Radiographs of the chest dated 04/04/2021, the same date as this lung scan, are available for comparison. TECHNIQUE: Following the intravenous injection of 4.0 mCi Tc-99m MAA, an 8-view perfusion study was performed using a gamma scintillation camera. FINDINGS: No segmental perfusion defects are present. There is homogeneous distribution of activity bilaterally. There are no focal anatomic appearing perfusion defects present. NM/NM pul perfusion IMPRESSION: Normal radionuclide lung perfusion scan.
--- NOTE | ~2021-03-25 | XR_ITS ---
EXAMINATION: XR CHEST CLINICAL INFORMATION: Shortness of breath COMPARISON: November 26, 2016 TECHNIQUE: 2 views of the chest were obtained. FINDINGS: No significant abnormality is noted involving the heart, lungs, mediastinum, bony thorax or soft tissues. Calcific granuloma is seen within the left upper lobe. XR/XR chest 2V IMPRESSION: No acute disease. Old granulomatous disease.
--- NOTE | 2021-03-25 09:46 | ECG_ITS ---
Test Reason : TACHY Blood Pressure : / mmHG Vent. Rate : 129 BPM Atrial Rate : 129 BPM P-R Int : 138 ms QRS Dur : 110 ms QT Int : 316 ms P-R-T Axes : 037 -66 078 degrees QTc Int : 462 ms Sinus tachycardia Incomplete right bundle branch block Left anterior fascicular block Left ventricular hypertrophy with repolarization abnormality ( R in aVL , [place] product ) Cannot rule out Septal infarct , age undetermined Abnormal ECG When compared with ECG of 26-NOV-2020 07:27, Vent. rate has increased BY 56 BPM Incomplete right bundle branch block is now Present Minimal criteria for Septal infarct are now Present Referred By: Generic ED Physician Electronically Signed By:RENÉ CROW MD
[2021-03-25 09:58] LABS: Glucose, Whole Blood 235 mg/dL (60-115)
[2021-03-25 10:10] LABS: Basophils Percent Auto 0.2 % (0-2); Eosinophils Absolute Auto 0.1 X10*3/uL (0.0-0.4); Eosinophils Percent Auto 0.6 % (0-4); Hemoglobin 14.2 g/dl (14.0-18.0); Imm Gran Abs Auto 0.05 X10*3/uL (0.00-0.03); Imm Gran Pct Auto 0.4 % (0.0-0.4); Lymphocytes Absolute Auto 1.2 X10*3/uL (1.2-4.9); Lymphocytes Percent Auto 8.5 % (20-40); MANUAL DIFF FLAG NO; Mean Corpuscular HGB Conc 33.8 g/dl (31.0-36.0); Mean Corpuscular Hemoglobin 29.6 pg (27.0-33.0); Mean Corpuscular Volume 87.5 fL (80.0-98.0); Mean Platelet Volume 10.5 fL (9.4-12.4); Monocytes Absolute Auto 0.8 X10*3/uL (0.1-1.2); Monocytes Percent Auto 5.5 % (2-11); Neutrophils Absolute Auto 11.6 x10*3/uL (2.0-8.3); Neutrophils Percent Auto 84.8 % (45-73); Platelet Count 203 X10*3/uL (160-400); Red Cell Distribution Width 12.5 % (11.0-16.0); White Blood Count 13.7 X10*3/uL (4.8-10.8)
[2021-03-25 10:25] LABS: Alanine Aminotransferase 68 U/L (0-40); Albumin Level 4.3 g/dL (3.5-5.0); Alkaline Phosphatase 72 U/L (39-117); Anion Gap 13 (12-20); Aspartate Amino Transferase 49 U/L (5-37); Bilirubin Total 0.9 mg/dL (0.0-1.0); Blood Urea Nitrogen 18 mg/dL (9-16); Calcium 9.5 mg/dL (8.4-10.2); Carbon Dioxide 27 mmol/L (22-29); Chloride 102 mmol/L (96-108); Creatinine Clr Calc Pharmacy 95.5; Estimated Glomerular Filt Rate > 60; Glucose Random 238 mg/dL (60-115); Potassium 4.4 mmol/L (3.3-5.1); Sodium 138 mmol/L (135-145); Total Protein 7.5 g/dL (6.5-8.0)
[2021-03-25 10:32] LABS: COVID-19 Test Negative (Negative)
--- NOTE | 2021-03-25 10:36 | ED_ITS ---
HPI - URI/Sore Throat General Chief Complaint: Upper Respiratory Symptoms Stated Complaint: coughing ear pain headache chills Time Seen by Provider: 03/25/21 10:35 Source: patient Mode of arrival: ambulatory Limitations: no limitations History of Present Illness HPI Narrative: Patient is a 60-year-old male with a past medical history of nonalcoholic steatohepatitis, GERD, irritable bowel syndrome, type 2 diabetes, arthritis, chronic lumbar radiculopathy, cervical radiculopathy, and history of COVID-19 infection in summer. He reports productive cough with brown/ green phlegm for 3 days and dyspnea with exertion. He has been experiencing bilateral ear discomfort, headache, and a feeling of chills. Denies drainage from the ears or decreased hearing. He reports some intermittent nausea and brief lower mid abdominal pain earlier this morning that was alleviated after a bowel movement. Denies fevers, dizziness, lightheadedness, chest pain, wheezing, vomiting, or persistent abdominal pain. Denies a personal history of DVT or pulmonary embolism, pain or swelling of the legs, recent extensive trave l, or personal history of cancer Denies any known sick contacts or COVID-19 exposure. He does report that in the summer 2020 after COVID-19 infection he was evaluated while in [place] for concerns about a left lung abnormality seen on x-ray, underwent subsequent CT scan and states a doctor advised this was likely due to COVID-19. He does not recall the name of the doctor or the facility by which he was evaluated. Related Data Home Medications Medication Instructions Recorded Confirmed rosuvastatin 20 mg tablet 20 mg PO BEDTIME 01/17/21 02/22/21 Previous Rx's Medication Instructions Recorded naloxone 4 mg/actuation nasal 1 spray INTRANASAL Q2M #1 ea 01/20/20 spray (Narcan) naproxen 500 mg tablet 500 mg PO BID PRN 30 Days #60 tab 03/25/20 acetaminophen 500 mg tablet 500 mg PO Q6H PRN #20 tab 11/21/20 famotidine 20 mg tablet (Pepcid) 20 mg PO DAILY PRN #30 tab 11/26/20 ondansetron 4 mg disintegrating 4 mg PO Q8H PRN 5 Days #5 tab 11/29/20 tablet omeprazole 40 mg capsule,delayed 40 mg PO BID #180 cap 01/17/21 release sucralfate 1 gram tablet (Carafate) 2 g PO BID 30 Days #120 tab 01/17/21 linagliptin 5 mg tablet (Tradjenta) 5 mg PO DAILY #90 tab 02/02/21 buprenorphine 10 mcg/hour weekly 1 patch TRANSDERMAL Q7D 28 Days #4 02/25/21 transdermal patch (Butrans) ea methadone 5 mg tablet 5 mg PO Q12H 30 Days #60 tab 02/25/21 Allergies Allergy/AdvReac Type Severity Reaction Status Date / Time fentanyl Allergy Intermediate itching Verified 03/25/21 09:43 morphine [Amber] Allergy Intermediate itch Verified 03/25/21 09:43 Iodinated Contrast Media Allergy Mild DIFFICULTY Verified 03/25/21 09:43 [IV Dye, Iodine Containing] BREATHING,VOMITING metformin AdvReac Intermediate stomach Verified 03/25/21 09:43 pain Review of Systems Review of Systems: Constitutional: + chills. No weight loss, fever, weakness or fatigue. HEENT: + ear pain. No visual loss, blurred vision, double vision or yellow sclera. No hearing loss, sneezing, congestion, runny nose or sore throat. Skin: No rash or itching. Cardiovascular: No chest pain, chest pressure or chest discomfort. No palpitations or pedal edema. Respiratory: + cough and dyspnea on exertion Gastrointestinal: + vomiting. No anorexia, or diarrhea. No abdominal pain or blood in stool. Genitourinary: No burning micturition. No urinary frequency or incontinence. Neurologic: No headache, dizziness, syncope, unilateral weakness, ataxia, numbness or tingling in the extremities. No change in bowel or bladder control. Musculoskeletal: No muscle pain, back pain, joint pain or stiffness. Hematologic: No bleeding or bruising. Lymphatics: No enlarged lymph nodes. Psychiatric:No depression or anxiety. Endocrine: No reports of sweating. No cold or heat intolerance. No polyuria or polydipsia. [facility] Past Medical History Attestation statement: The following information was validated with the patient. Source: old records reviewed Medical History Arthritis Cervical radiculopathy Diabetes Elevated liver transaminase level High cholesterol Lumbar post-laminectomy syndrome Lumbar radiculopathy, chronic Lumbar spinal stenosis Surgical History History of cholecystectomy History of elbow surgery History of lumbar fusion Family History Family History Father Liver problem Alcoholism Substance use disorder Mother No problems noted. Brother CAD (coronary artery disease) Social History Social History Household Members: Spouse and Children Housing: Apartment Alcohol intake: never Patient Tobacco Use Status: Never used Tobacco e-Cigarette/Vaping Use: Never Used Second Hand Smoke Exposure: No Use of substances other than those prescribed or required for medical reasons: No Advance Directives: No Advance Directives Information Provided: No service: No Current occupational status: disabled Cognitive needs: Yes (cane) Hearing needs: No Vision needs: Yes (reading glasses) Physical Exam Vital Signs: Vital Signs: Last Vital Signs Temp 98.3 F 03/25/21 16:14 Pulse 85 03/25/21 17:19 Resp 16 03/25/21 17:19 BP 111/69 03/25/21 17:19 Pulse Ox 97 03/25/21 17:19 BMI result Body Mass Index 27.7 Vital signs have been reviewed and appeared to be correct. Blood pressure normal.? Initially tachycardic, 120-130's, sinus tachycardia.? Respiration rate normal. Temperature normal.? Oxygen saturation 93-94% while talking, greater than 95% with rest. Appearance: Alert.? Oriented X3.? No acute distress.?? Eyes: Pupils equal, round and reactive to light.?? ENT: Pharynx normal. Bilateral tympanic membranes intact, clear. Neck: Normal inspection.? Neck supple.?? CVS: Sinus tachycardia.? Pulses normal.??No murmurs, rubs or gallops Respiratory: No respiratory distress.? Breath sounds normal, except diminished to right lower lobe. Abdomen: Soft and non-tender.??Normoactive bowel sounds in 4 quadrants. No pulsatile mass. Skin: Skin warm and dry.? Normal skin color.? Normal skin turgor.?? Extremities: No lower extremity edema.? No calf ttp? Neuro: Oriented X 3.? No motor deficit.? No sensory deficit. Course Course Course Narrative: Patient is a 60-year-old male with a past medical history of nonalcoholic steatohepatitis, GERD, irritable bowel syndrome, type 2 diabetes, a rthritis, chronic lumbar radiculopathy, cervical radiculopathy, and history of COVID-19 infection in summer of 2020. He presents emergency department for concerns cough, and dyspnea with exertion. Upon presentation he was afebrile, and tachycardic. CBC, CMP, lactic acid, troponin, blood cultures, EKG, chest x- ray, V/Q scan to be obtained. Disposition pending results. 1100: Review of protocol labs obtained from triage indicates leukocytosis, 13.7 likely reactive due to mild dehydration, and tachycardia likely due to vomiting, not infection at this time. Hyperglycemia, 238. AST and ALT mildly elevated at 49/68, though he does have a history of nonalcoholic steatohepatitis. COVID-19 testing resulted negative. EKG concerning for sinus tachycardia normal new incomplete right bundle-branch block. Patient with history of allergy to contrast dye, therefore will order V/Q scan to exclude pulmonary embolism. 1140: Lactic acid 1.8 not elevated, initial troponin negative, <3.5. Nursing r eports O2 saturation 92-93%, and patient endorsing shortness of breath whilte sitting on stretcher, therefore was placed on oxygen via nasal cannula at 2L. 1227: At this time, given persistent tachycardia, low-grade temp, and leukocytosis will cover with ceftriaxone for suspected bacterial infection. 1450: Patient reports return of mid, lower abd cramping, mild tachycardia persists, 108, hypotension 101/49. No further episodes of vomiting. V/Q scan normal, awaiting CT of chest. Additional 1L of fluids ordered 1600: Chest CT concerning for small scattered semi-solid nodular opacities in th e right upper and right lower lobe. Plan for repeat vital signs, and ambulatory O2 saturation trial, disposition pending results. 1620: 2 episodes of hypotension, patient is alert and oriented, hypertension likely secondary to dehydration and fever. Patient has received 2 L of fluid. Patient is obese, ideal body weight 82 kg. Will order 30 cc/kilogram bolus, total 2460, will give difference. Patient hypoxia with ambulation. Will plan for admission to. Additionally, azithromycin ordered for bacterial pneumonia. 1710: I spoke with Byron Clement MD, regarding patient admission, orders entered. MDM - URI/Sore Throat Medical Records Attestation: I reviewed the patient's medical records. Lab Data Attestation: I reviewed the patient's lab results. Result diagrams: 03/25/21 10:02 03/25/21 10:02 Labs: Lab Results 03/25/21 03/25/21 03/25/21 Range/Units 09:54 10:02 10:02 WBC 13.7 H (4.8-10.8) X10*3/uL RBC 4.80 (4.60-5.80) X10*6/uL Hgb 14.2 (14.0-18.0) g/dl Hct 42.0 (42.0-52.0) % MCV 87.5 (80.0-98.0) fL MCH 29.6 (27.0-33.0) pg MCHC 33.8 (31.0-36.0) g/dl RDW 12.5 (11.0-16.0) % Plt Count 203 (160-400) X10*3/uL MPV 10.5 (9.4-12.4) fL Immature Gran % (Auto) 0.4 (0.0-0.4) % Neut % (Auto) 84.8 H (45-73) % Lymph % (Auto) 8.5 L (20-40) % [place] % (Auto) 5.5 (2-11) % Eos % (Auto) 0.6 (0-4) % Baso % (Auto) 0.2 (0-2) % Lymph # (Auto) 1.2 (1.2-4.9) X10*3/uL [place] # (Auto) 0.8 (0.1-1.2) X10*3/uL Eos # (Auto) 0.1 (0.0-0.4) X10*3/uL Baso # (Auto) 0.0 (0.0-0.2) X10*3/uL Abs Immat Gran (auto) 0.05 H (0.00-0.03) X10*3/uL Absolute Neuts (auto) 11.6 H (2.0-8.3) x10*3/uL Absolute Nucleated RBC 0.000 (0.0-0.012) X10*3/uL Nucleated RBC % (auto) 0.0 (0.0-0.2) /100WBC Sodium 138 (135-145) mmol/L Potassium 4.4 (3.3-5.1) mmol/L Chloride 102 (96-108) mmol/L Carbon Dioxide 27 (22-29) mmol/L Anion Gap 13 (12-20) BUN 18 H (9-16) mg/dL Creatinine 0.98 (0.5-1.4) mg/dL Estim Creat Clear Calc 95.5 Estimated GFR > 60 POC Glucose 235 H (60-115) mg/dL Random Glucose 238 H (60-115) mg/dL Lactic Acid (0.5-2.0) mmol/L Calcium 9.5 (8.4-10.2) mg/dL Total Bilirubin 0.9 (0.0-1.0) mg/dL AST 49 H (5-37) U/L ALT 68 H (0-40) U/L Alkaline Phosphatase 72 (39-117) U/L Troponin I High Sens (<3.5-35.0) ng/L Total Protein 7.5 (6.5-8.0) g/dL Albumin 4.3 (3.5-5.0) g/dL COVID-19 (LISETH) (Negative) COVID-19 Clin Com 03/25/21 03/25/21 03/25/21 Range/Units 10:03 11:20 11:20 WBC (4.8-10.8) X10*3/uL RBC (4.60-5.80) X10*6/uL Hgb (14.0-18.0) g/dl Hct (42.0-52.0) % MCV (80.0-98.0) fL MCH (27.0-33.0) pg MCHC (31.0-36.0) g/dl RDW (11.0-16.0) % Plt Count (160-400) X10*3/uL MPV (9.4-12.4) fL Immature Gran % (Auto) (0.0-0.4) % Neut % (Auto) (45-73) % Lymph % (Auto) (20-40) % [place] % (Auto) (2-11) % Eos % (Auto) (0-4) % Baso % (Auto) (0-2) % Lymph # (Auto) (1.2-4.9) X10*3/uL [place] # (Auto) (0.1-1.2) X10*3/uL Eos # (Auto) (0.0-0.4) X10*3/uL Baso # (Auto) (0.0-0.2) X10*3/uL Abs Immat Gran (auto) (0.00-0.03) X10*3/uL Absolute Neuts (auto) (2.0-8.3) x10*3/uL Absolute Nucleated RBC (0.0-0.012) X10*3/uL Nucleated RBC % (auto) (0.0-0.2) /100WBC Sodium (135-145) mmol/L Potassium (3.3-5.1) mmol/L Chloride (96-108) mmol/L Carbon Dioxide (22-29) mmol/L Anion Gap (12-20) BUN (9-16) mg/dL Creatinine (0.5-1.4) mg/dL Estim Creat Clear Calc Estimated GFR POC Glucose (60-115) mg/dL Random Glucose (60-115) mg/dL Lactic Acid 1.8 (0.5-2.0) mmol/L Calcium (8.4-10.2) mg/dL Total Bilirubin (0.0-1.0) mg/dL AST (5-37) U/L ALT (0-40) U/L Alkaline Phosphatase (39-117) U/L Troponin I High Sens < 3.5 (<3.5-35.0) ng/L Total Protein (6.5-8.0) g/dL Albumin (3.5-5.0) g/dL COVID-19 (LISETH) Negative (Negative) COVID-19 Clin Com See Note 03/25/21 Range/Units 12:42 WBC (4.8-10.8) X10*3/uL RBC (4.60-5.80) X10*6/uL Hgb (14.0-18.0) g/dl Hct (42.0-52.0) % MCV (80.0-98.0) fL MCH (27.0-33.0) pg MCHC (31.0-36.0) g/dl RDW (11.0-16.0) % Plt Count (160-400) X10*3/uL MPV (9.4-12.4) fL Immature Gran % (Auto) (0.0-0.4) % Neut % (Auto) (45-73) % Lymph % (Auto) (20-40) % [place] % (Auto) (2-11) % Eos % (Auto) (0-4) % Baso % (Auto) (0-2) % Lymph # (Auto) (1.2-4.9) X10*3/uL [place] # (Auto) (0.1-1.2) X10*3/uL Eos # (Auto) (0.0-0.4) X10*3/uL Baso # (Auto) (0.0-0.2) X10*3/uL Abs Immat Gran (auto) (0.00-0.03) X10*3/uL Absolute Neuts (auto) (2.0-8.3) x10*3/uL Absolute Nucleated RBC (0.0-0.012) X10*3/uL Nucleated RBC % (auto) (0.0-0.2) /100WBC Sodium (135-145) mmol/L Potassium (3.3-5.1) mmol/L Chloride (96-108) mmol/L Carbon Dioxide (22-29) mmol/L Anion Gap (12-20) BUN (9-16) mg/dL Creatinine (0.5-1.4) mg/dL Estim Creat Clear Calc Estimated GFR POC Glucose (60-115) mg/dL Random Glucose (60-115) mg/dL Lactic Acid (0.5-2.0) mmol/L Calcium (8.4-10.2) mg/dL Total Bilirubin (0.0-1.0) mg/dL AST (5-37) U/L ALT (0-40) U/L Alkaline Phosphatase (39-117) U/L Troponin I High Sens (<3.5-35.0) ng/L Total Protein (6.5-8.0) g/dL Albumin (3.5-5.0) g/dL COVID-19 (LISETH) Negative (Negative) COVID-19 Clin Com See Note Imaging Data Chest x-ray: Attestation: I personally reviewed and interpreted this imaging study as follows: Radiologist's impression: IMPRESSION: No acute disease. ? Old granulomatous disease. V-Q scan: Attestation: I personally reviewed and interpreted this imaging study as follows: Radiologist's impression: IMPRESSION: Normal radionuclide lung perfusion scan. CT scan - chest: Attestation: I personally reviewed and interpreted this imaging study as follows: Radiologist's impression: IMPRESSION: Small scattered semisolid nodular opacities in the right upper lobe and right lower lobe. This probably represents pneumonia.? ECG Data Attestation: I personally reviewed and interpreted this ECG as follows: ECG interpretation date: 03/25/21 ECG interpretation time: 11:48 Prior ECG tracings: available for review (November 2020) Interpretation: Rate: 129 Rhythm:? Sinus tachycardia, incomplete right bundle-branch block [place]:? Left Normal P waves.? Normal RYLEE.?? Normal QRS complex.?? qTC: 462 prior studies:? November 2020 The study has been interpreted contemporaneously by me. Discharge Plan Discharge Clinical Impression: Pneumonia, Hypoxia, Leukocytosis, Acute hypotension Patient Disposition: Admitted As Inpatient
[2021-03-25 11:36] LABS: Lactic Acid 1.8 mmol/L (0.5-2.0)
[2021-03-25] MEDS: ondansetron HCL 4 MG/2 ML VIAL IVPUSH (11:37)
--- NOTE | 2021-03-25 11:39 | PC.NURSE ---
sat down to 93% onroom air. Placed on 2lpm via nc, LS clear throughout. Remains sinus tach on tele, rate 115-130
[2021-03-25 11:46] LABS: Troponin-I High Sensitivity < 3.5 ng/L (<3.5-35.0)
[2021-03-25] MEDS: cefTRIAXone sodium 1 GM in 0.9 % Sodium Chloride 50 ML IV (12:40)
[2021-03-25] MEDS: 0.9 % Sodium Chloride 1,000 ML 999 ML IV ×2 (12:40→14:50)
[2021-03-25 13:05] LABS: COVID-19 Test Negative (Negative); IDNOW Serial# 9DD0AD1C
[2021-03-25] MEDS: 0.9 % Sodium Chloride 500 ML 999 ML IV (17:17)
[2021-03-25] MEDS: Azithromycin 500 MG in 0.9 % Sodium Chloride 250 ML 125 MG IV (17:17)
--- NOTE | 2021-03-25 17:35 | P.HPHOSP_ITS ---
History of Present Illness Date of Service: 03/25/21 Chief Complaint: Shortness of breath 52-year-old male with past medical history of fatty liver disease GERD Neuro bowel as well as type 2 diabetes presents with worsening cough and shortness of breath over the last 3 days. He notes worsening shortness of breath with exertion along with headache fever and chills. States recently had COVID-19 in the summer 2020. Recently traveled to [place] and has returned. Symptoms started shortly thereafter. He was swab COVID negative in the ER. CT scan in the emergency room demonstrated right upper lower lobe infiltrates. Patient noted to desat into the 80s with exertion. He will be admitted for treatment t he same Review of Systems Review of Systems: Denies chest pain Admits to exertional shortness of breath and productive cough Denies nausea vomiting diarrhea Admits to fever and chills PMFSH Medical History Arthritis Cervical radiculopathy Diabetes Elevated liver transaminase level High cholesterol Lumbar post-laminectomy syndrome Lumbar radiculopathy, chronic Lumbar spinal stenosis Family History Father Liver problem Alcoholism Substance use disorder Mother No problems noted. Brother CAD (coronary artery disease) Surgical History History of cholecystectomy History of elbow surgery History of lumbar fusion Social History Household Members: Spouse and Children Housing: Apartment Alcohol intake: never Patient Tobacco Use Status: Never used Tobacco e-Cigarette/Vaping Use: Never Used Second Hand Smoke Exposure: No Use of substances other than those prescribed or required for medical reasons: No Advance Directives: No Advance Directives Information Provided: No service: No Current occupational status: disabled Cognitive needs: Yes (cane) Hearing needs: No Vision needs: Yes (reading glasses) Meds Allergies Allergy/AdvReac Type Severity Reaction Status Date / Time fentanyl Allergy Intermediate itching Verified 03/25/21 09:43 morphine [Amber] Allergy Intermediate itch Verified 03/25/21 09:43 Iodinated Contrast Media Allergy Mild DIFFICULTY Verified 03/25/21 09:43 [IV Dye, Iodine Containing] BREATHING,VOMITING metformin AdvReac Intermediate stomach Verified 03/25/21 09:43 pain Active Medications: Current Medications Acetaminophen (Acetaminophen 325 Mg Tablet) 650 mg PO Q6H PRN PRN Reason: Pain, Mild (Pain Scale 1-3) Enoxaparin Sodium (Enoxaparin Sodium 40 Mg/0.4 Ml Syringe) 40 mg SUBCUT Q24H [facility] Azithromycin 500 mg/ Sodium (Chloride) 250 mls @ 125 mls/hr IV ONCE ONE Stop: 03/25/21 18:35 Last Admin: 03/25/21 17:17 Dose: 125 mls/hr Documented by: Sodium Chloride () 1,000 mls @ 100 mls/hr IVCONT .Q10H [facility] Ceftriaxone Sodium 1 gm/ (Sodium Chloride) 50 mls @ 100 mls/hr IV Q24H [facility] Azithromycin 500 mg/ Sodium (Chloride) 250 mls @ 125 mls/hr IV Q24H [facility] Melatonin (Melatonin 3 Mg Tablet) 6 mg PO BEDTIME PRN PRN Reason: Insomnia Ondansetron HCl (Ondansetron Hcl 4 Mg/2 Ml Vial) 4 mg IVPUSH Q8H PRN PRN Reason: Nausea and Vomiting Pharmacy Consult (Consult Rx Perform Med Rec) 1 each MISCELLANE ONCE PRN PRN Reason: Consult order Pharmacy Consult (Consult Rx Perform Med Rec) 1 each MISCELLANE ONCE PRN PRN Reason: Consult order Sodium Chloride (0.9 % Sodium Chloride Flush 3 Ml Syringe) 3 ml IVFLUSH QSHIFT [facility] Home Medications Medication Instructions Recorded Confirmed Last Taken Type rosuvastatin 20 mg tablet 20 mg PO BEDTIME 01/17/21 02/22/21 Unknown History Physical Exam Vital Signs and Narrative: Vital Signs: Last Vital Signs Temp 98.3 F 03/25/21 16:14 Pulse 85 03/25/21 17:19 Resp 16 03/25/21 17:19 BP 111/69 03/25/21 17:19 Pulse Ox 97 03/25/21 17:19 BMI result Body Mass Index 27.7 Const: Other: Resting quietly in stretcher no acute distress. Speaking in full sentences lying semi [place] Resp: Other: Diminished breath sounds at the right base with scant crackles heard otherwise clear Cardio: Other: No S4; positive S1-S2; no S3 murmurs rubs gallops GI: Other: Soft nontender nondistended with normoactive bowel sounds. There is no rebound or guarding Neuro: Other: Cranial nerves 2-12 grossly intact as tested. Motor is 5/5 all extremities. Sensation intact cognition appropriate Extrem: Other: No edema bilaterally Results Labs CBC and Chem 7: 03/25/21 10:02 03/25/21 10:02 Labs: Laboratory Results - last 24 hr 03/25/21 03/25/21 03/25/21 09:54 10:02 10:02 MCV 87.5 MCH 29.6 MCHC 33.8 RDW 12.5 Plt Count 203 MPV 10.5 Immature Gran % (Auto) 0.4 Neut % (Auto) 84.8 H Lymph % (Auto) 8.5 L [place] % (Auto) 5.5 Eos % (Auto) 0.6 Baso % (Auto) 0.2 Lymph # (Auto) 1.2 [place] # (Auto) 0.8 Eos # (Auto) 0.1 Baso # (Auto) 0.0 Abs Immat Gran (auto) 0.05 H Absolute Neuts (auto) 11.6 H Absolute Nucleated RBC 0.000 Nucleated RBC % (auto) 0.0 Anion Gap 13 Estim Creat Clear Calc 95.5 Estimated GFR > 60 POC Glucose 235 H Random Glucose 238 H Lactic Acid Calcium 9.5 Total Bilirubin 0.9 AST 49 H ALT 68 H Alkaline Phosphatase 72 Troponin I High Sens Total Protein 7.5 Albumin 4.3 COVID-19 (LISETH) COVID-19 Clin Com 03/25/21 03/25/21 03/25/21 10:03 11:20 11:20 MCV MCH MCHC RDW Plt Count MPV Immature Gran % (Auto) Neut % (Auto) Lymph % (Auto) [place] % (Auto) Eos % (Auto) Baso % (Auto) Lymph # (Auto) [place] # (Auto) Eos # (Auto) Baso # (Auto) Abs Immat Gran (auto) Absolute Neuts (auto) Absolute Nucleated RBC Nucleated RBC % (auto) Anion Gap Estim Creat Clear Calc Estimated GFR POC Glucose Random Glucose Lactic Acid 1.8 Calcium Total Bilirubin AST ALT Alkaline Phosphatase Troponin I High Sens < 3.5 Total Protein Albumin COVID-19 (LISETH) Negative COVID-19 Clin Com See Note 03/25/21 12:42 MCV MCH MCHC RDW Plt Count MPV Immature Gran % (Auto) Neut % (Auto) Lymph % (Auto) [place] % (Auto) Eos % (Auto) Baso % (Auto) Lymph # (Auto) [place] # (Auto) Eos # (Auto) Baso # (Auto) Abs Immat Gran (auto) Absolute Neuts (auto) Absolute Nucleated RBC Nucleated RBC % (auto) Anion Gap Estim Creat Clear Calc Estimated GFR POC Glucose Random Glucose Lactic Acid Calcium Total Bilirubin AST ALT Alkaline Phosphatase Troponin I High Sens Total Protein Albumin COVID-19 (LISETH) Negative COVID-19 Clin Com See Note Imaging Radiologist's Impressions: Impressions Chest X-Ray 03/25/21 10:40 IMPRESSION: No acute disease. Old granulomatous disease. Pulmonary Perfusion Imaging 03/25/21 13:45 IMPRESSION: Normal radionuclide lung perfusion scan. Chest CT 03/25/21 14:44 IMPRESSION: Small scattered semisolid nodular opacities in the right upper lobe and right lower lobe. This probably represents pneumonia. Fleischner guidelines were followed. Assessment and Plan (1) Pneumonia: Status: Acute (2) Hypoxia: Status: Acute (3) Diabetes: Qualifiers: Diabetes mellitus type: type 2 Diabetes mellitus intermediate manager insulin use: without fci use Diabetes mellitus complication status: without complication Qualified Code(s): E11.9 - Type 2 diabetes mellitus without complications Status: Acute 60-year-old man presents worsening shortness of breath and productive cough over the 3 days prior to his arrival. Workup in the emergency room consistent with right middle and lower lobe pneumonia. Sats correctable with O2. 1. CAP Will treat with ceftriaxone and azithromycin Supplemental O2 to titrate sats greater than equal 92% 2. Diabetes type 2 Continue linagliptin as ordered Cover with sliding scale insulin Adjust therapies into indicated 3. GERD Continue PPI and H2 RA as per outpatient therapies 4. Chronic back pain Continue outpatient therapies including methadone Lovenox Full code Quality Stroke Does the patient have a stroke diagnosis?: No VTE Prior VTE?: No VTE Risk Level:: Medical - moderate - high VTE Device Contraindication: Treatment Not Indicated VTE Drug Contraindication: N/A - Med Ordered
--- NOTE | 2021-03-25 18:09 | PHA.MEDREC ---
Pharmacy Consult ? Medication Reconciliation Pharmacy has completed the medication reconciliation. Spoke with patient in ED. Patient takes methadone 5 mg ONLY IN AM, he does not take at night because it will keep him up all night. Pt states he last changed his butrans patch on sunday.
[2021-03-25] MEDS: Sodium Chloride 0.45 % 1,000 ML 100 ML IVCONT (18:37)
[2021-03-25 21:13] LABS: Glucose, Whole Blood 169 mg/dL (60-115)
[2021-03-25] MEDS: Sucralfate 1 GM TABLET 2 GM PO (21:16)
[2021-03-25] MEDS: Atorvastatin Calcium 80 MG TABLET PO (21:16)
[2021-03-25] MEDS: Insulin Lispro 100 UNIT/ML 3 ML VIAL SUBCUT (21:16)
[2021-03-26] VITALS (8 sets, daily range): BP systolic 116–138; BP diastolic 65–74; PULSE 68–87; RESP 15–20; TEMP 36–36.8; O2SAT 93–99; BMI 27.7
[2021-03-26 06:05] LABS: MANUAL DIFF FLAG NO
[2021-03-26 06:09] LABS: Basophils Percent Auto 0.2 % (0-2); Eosinophils Absolute Auto 0.1 X10*3/uL (0.0-0.4); Eosinophils Percent Auto 0.6 % (0-4); Hematocrit 37.8 % (42.0-52.0); Hemoglobin 12.2 g/dl (14.0-18.0); Imm Gran Abs Auto 0.04 X10*3/uL (0.00-0.03); Imm Gran Pct Auto 0.3 % (0.0-0.4); Lymphocytes Percent Auto 17.1 % (20-40); Mean Corpuscular HGB Conc 32.3 g/dl (31.0-36.0); Mean Corpuscular Hemoglobin 28.6 pg (27.0-33.0); Mean Corpuscular Volume 88.5 fL (80.0-98.0); Mean Platelet Volume 10.7 fL (9.4-12.4); Monocytes Absolute Auto 1.1 X10*3/uL (0.1-1.2); Monocytes Percent Auto 9.3 % (2-11); Neutrophils Absolute Auto 8.6 x10*3/uL (2.0-8.3); Neutrophils Percent Auto 72.5 % (45-73); Platelet Count 181 X10*3/uL (160-400); Red Blood Count 4.27 X10*6/uL (4.60-5.80); Red Cell Distribution Width 12.6 % (11.0-16.0); White Blood Count 11.9 X10*3/uL (4.8-10.8)
[2021-03-26 06:28] LABS: Alanine Aminotransferase 43 U/L (0-40); Albumin Level 3.7 g/dL (3.5-5.0); Alkaline Phosphatase 59 U/L (39-117); Anion Gap 8 (12-20); Aspartate Amino Transferase 18 U/L (5-37); Bilirubin Total 0.7 mg/dL (0.0-1.0); Blood Urea Nitrogen 13 mg/dL (9-16); Calcium 8.8 mg/dL (8.4-10.2); Carbon Dioxide 28 mmol/L (22-29); Chloride 106 mmol/L (96-108); Estimated Glomerular Filt Rate > 60; Glucose Fasting 138 mg/dL (60-99); Potassium 4.3 mmol/L (3.3-5.1); Sodium 138 mmol/L (135-145); Total Protein 6.2 g/dL (6.5-8.0)
[2021-03-26 07:37] LABS: Glucose, Whole Blood 127 mg/dL (60-115)
[2021-03-26] MEDS: Sucralfate 1 GM TABLET 2 GM PO ×2 (10:06→20:53)
[2021-03-26] MEDS: methADONE HCl 5 MG TABLET PO (10:07)
--- NOTE | 2021-03-26 11:08 | HO.PM.IMPN ---
Subjective Subjective Date of Service: 03/26/21 Interval History: no acute issues overnight. Notes improvement with regards to breathing Review of Systems denies chest pain Denies shortness of breath Denies nausea vomiting diarrhea Physical Exam Vital Signs: Vital Signs: Last Vital Signs Temp 97.7 F 03/26/21 08:00 Pulse 68 03/26/21 08:00 Resp 18 03/26/21 08:00 BP 116/65 03/26/21 08:00 Pulse Ox 99 03/26/21 08:00 BMI result Body Mass Index 27.7 Const: Other: Resting quietly in stretcher no acute distress. Speaking in full sentences lying semi Ingram Resp: Other: Diminished breath sounds at the right base with scant crackles heard otherwise clear Cardio: Other: No S4; positive S1-S2; no S3 murmurs rubs gallops GI: Other: Soft nontender nondistended with normoactive bowel sounds. There is no rebound or guarding Neuro: Other: Cranial nerves 2-12 grossly intact as tested. Motor is 5/5 all extremities. Sensation intact cognition appropriate Extrem: Other: No edema bilaterally Objective Data Active Medications Acetaminophen (Acetaminophen 325 Mg Tablet) 650 mg PO Q6H PRN PRN Reason: Pain, Mild (Pain Scale 1-3) Atorvastatin Calcium (Atorvastatin Calcium 80 Mg Tablet) 80 mg PO BEDTIME [facility] Last Admin: 03/25/21 21:16 Dose: 80 mg Documented by: RAMO Dextrose (Dextrose 50 % 25 Gm/50 Ml Vial) 25 gm IVPUSH Q15M PRN; Protocol PRN Reason: per Hypoglycemia Standing Ord. Enoxaparin Sodium (Enoxaparin Sodium 40 Mg/0.4 Ml Syringe) 40 mg SUBCUT Q24H [facility] Last Admin: 03/25/21 19:38 Dose: Not Given Documented by: RAMO Non-Admin Reason: Patient Refused Famotidine (Famotidine 20 Mg Tablet) 20 mg PO DAILY PRN PRN Reason: abdominal discomfort Glucose (Glucose Gel 15 Gm Gel..Gram.) 15 gm PO Q15M PRN; Protocol PRN Reason: per Hypoglycemia Standing Ord. Sodium Chloride () 1,000 mls @ 100 mls/hr IVCONT .Q10H [facility] Last Infusion: 03/26/21 07:17 Dose: 0 mls/hr Documented by: JOSE EDUARDO Ceftriaxone Sodium 1 gm/ (Sodium Chloride) 50 mls @ 100 mls/hr IV Q24H [facility] Azithromycin 500 mg/ Sodium (Chloride) 250 mls @ 125 mls/hr IV Q24H [facility] Insulin Human Lispro (Insulin Lispro 100 Unit/Ml 3 Ml Vial) 0 unit SUBCUT QIDACHS [facility]; Protocol Last Admin: 03/26/21 08:15 Dose: Not Given Documented by: JOSE EDUARDO Non-Admin Reason: No Insulin Coverage Melatonin (Melatonin 3 Mg Tablet) 6 mg PO BEDTIME PRN PRN Reason: Insomnia Methadone HCl (Methadone Hcl 5 Mg Tablet) 5 mg PO DAILY [facility] Last Admin: 03/26/21 10:07 Dose: 5 mg Documented by: JOSE EDUARDO Naloxone HCl (Naloxone Hcl Nasal 4 Mg [place]) 1 mg NOSTRILALT Q2M PRN PRN Reason: Opiate Reversal Non-Formulary Medication (Buprenorphine [Butrans]) 1 patch TRANSDERMA WE@0900 [facility] Non-Formulary Medication (Linagliptin [Tradjenta]) 5 mg PO DAILY [facility] Ondansetron HCl (Ondansetron Hcl 4 Mg/2 Ml Vial) 4 mg IVPUSH Q8H PRN PRN Reason: Nausea and Vomiting Pharmacy Consult (Consult Rx Perform Med Rec) 1 each MISCELLANE ONCE PRN PRN Reason: Consult order Pharmacy Consult (Consult Rx Perform Med Rec) 1 each MISCELLANE ONCE PRN PRN Reason: Consult order Sodium Chloride (0.9 % Sodium Chloride Flush 3 Ml Syringe) 3 ml IVFLUSH QSHIFT [facility] Last Admin: 03/26/21 10:07 Dose: Not Given Documented by: JOSE EDUARDO Non-Admin Reason: IV Running Sucralfate (Sucralfate 1 Gm Tablet) 2 gm PO BID [facility] Last Admin: 03/26/21 10:06 Dose: 2 gm Documented by: JOSE EDUARDO Labs CBC & Chem 7: 03/26/21 05:53 03/26/21 05:53 Labs: Laboratory Results - last 24 hr 03/25/21 03/25/21 03/25/21 11:20 11:20 12:42 MCV MCH MCHC RDW Plt Count MPV Immature Gran % (Auto) Neut % (Auto) Lymph % (Auto) [place] % (Auto) Eos % (Auto) Baso % (Auto) Lymph # (Auto) [place] # (Auto) Eos # (Auto) Baso # (Auto) Abs Immat Gran (auto) Absolute Neuts (auto) Absolute Nucleated RBC Nucleated RBC % (auto) Anion Gap Estim Creat Clear Calc Estimated GFR POC Glucose Fasting Glucose Lactic Acid 1.8 Calcium Total Bilirubin AST ALT Alkaline Phosphatase Troponin I High Sens < 3.5 Total Protein Albumin COVID-19 (LISETH) Negative COVID-19 Clin Com See Note 03/25/21 03/26/21 03/26/21 21:07 05:53 05:53 MCV 88.5 MCH 28.6 MCHC 32.3 RDW 12.6 Plt Count 181 MPV 10.7 Immature Gran % (Auto) 0.3 Neut % (Auto) 72.5 Lymph % (Auto) 17.1 L [place] % (Auto) 9.3 Eos % (Auto) 0.6 Baso % (Auto) 0.2 Lymph # (Auto) 2.0 [place] # (Auto) 1.1 Eos # (Auto) 0.1 Baso # (Auto) 0.0 Abs Immat Gran (auto) 0.04 H Absolute Neuts (auto) 8.6 H Absolute Nucleated RBC 0.000 Nucleated RBC % (auto) 0.0 Anion Gap 8 L Estim Creat Clear Calc 117.0 Estimated GFR > 60 POC Glucose 169 H Fasting Glucose 138 H Lactic Acid Calcium 8.8 D Total Bilirubin 0.7 AST 18 D ALT 43 H Alkaline Phosphatase 59 Troponin I High Sens Total Protein 6.2 L Albumin 3.7 COVID-19 ([facility]ISETH) COVID-19 Clin Com 03/26/21 07:20 MCV MCH MCHC RDW Plt Count MPV Immature Gran % (Auto) Neut % (Auto) Lymph % (Auto) [place] % (Auto) Eos % (Auto) Baso % (Auto) Lymph # (Auto) [place] # (Auto) Eos # (Auto) Baso # (Auto) Abs Immat Gran (auto) Absolute Neuts (auto) Absolute Nucleated RBC Nucleated RBC % (auto) Anion Gap Estim Creat Clear Calc Estimated GFR POC Glucose 127 H Fasting Glucose Lactic Acid Calcium Total Bilirubin AST ALT Alkaline Phosphatase Troponin I High Sens Total Protein Albumin COVID-19 (LISETH) COVID-19 Clin Com Assessment and Plan (1) Pneumonia: Status: Acute (2) DMII (diabetes mellitus, type 2): Status: Acute Assessment and Plan: 60-year-old man presents worsening shortness of breath and productive cough over the 3 days prior to his arrival. Workup in the emergency room consistent with right middle and lower lobe pneumonia. Sats correctable with O2. 1. CAP Will treat with ceftriaxone and azithromycin Supplemental O2 to titrate sats greater than equal 92% Home O2 eval in am 2. Diabetes type 2 Continue linagliptin as ordered Cover with sliding scale insulin Adjust therapies into indicated 3. GERD Continue PPI and H2 RA as per outpatient therapies 4. Chronic back pain Continue outpatient therapies including methadone Lovenox Full code Quality Stroke Does the patient have a stroke diagnosis?: No VTE Prior VTE?: No VTE Risk Level:: Medical - moderate - high VTE Device Contraindication: Treatment Not Indicated VTE Drug Contraindication: N/A - Med Ordered
[2021-03-26 11:25] LABS: Glucose, Whole Blood 115 mg/dL (60-115)
[2021-03-26] MEDS: Sodium Chloride 0.45 % 1,000 ML 100 ML IVCONT (13:43)
[2021-03-26] MEDS: cefTRIAXone sodium 1 GM in 0.9 % Sodium Chloride 50 ML IV (13:45)
[2021-03-26] MEDS: Azithromycin 500 MG in 0.9 % Sodium Chloride 250 ML 125 MG IV (17:06)
[2021-03-26 17:07] LABS: Glucose, Whole Blood 162 mg/dL (60-115)
[2021-03-26] MEDS: Insulin Lispro 100 UNIT/ML 3 ML VIAL SUBCUT (17:14)
[2021-03-26 20:07] LABS: Glucose, Whole Blood 115 mg/dL (60-115)
[2021-03-26] MEDS: Atorvastatin Calcium 80 MG TABLET PO (20:53)
[2021-03-26] MEDS: Enoxaparin Sodium 40 MG/0.4 ML SYRINGE SUBCUT (20:53)
[2021-03-26] MEDS: 0.9 % Sodium Chloride Flush 3 ML SYRINGE IVFLUSH (21:02)
[2021-03-27 03:45] VITALS: BP 116/65; PULSE 70; RESP 18; TEMP 36; O2SAT 99
[2021-03-27 05:44] LABS: MANUAL DIFF FLAG NO
[2021-03-27 05:51] LABS: Basophils Percent Auto 0.2 % (0-2); Eosinophils Absolute Auto 0.1 X10*3/uL (0.0-0.4); Eosinophils Percent Auto 1.3 % (0-4); Hematocrit 38.6 % (42.0-52.0); Hemoglobin 12.4 g/dl (14.0-18.0); Imm Gran Abs Auto 0.06 X10*3/uL (0.00-0.03); Imm Gran Pct Auto 0.7 % (0.0-0.4); Lymphocytes Absolute Auto 1.8 X10*3/uL (1.2-4.9); Lymphocytes Percent Auto 20.5 % (20-40); Mean Corpuscular HGB Conc 32.1 g/dl (31.0-36.0); Mean Corpuscular Hemoglobin 28.5 pg (27.0-33.0); Mean Corpuscular Volume 88.7 fL (80.0-98.0); Mean Platelet Volume 10.7 fL (9.4-12.4); Monocytes Absolute Auto 0.8 X10*3/uL (0.1-1.2); Monocytes Percent Auto 9.3 % (2-11); Neutrophils Absolute Auto 6.1 x10*3/uL (2.0-8.3); Platelet Count 196 X10*3/uL (160-400); Red Blood Count 4.35 X10*6/uL (4.60-5.80); Red Cell Distribution Width 12.4 % (11.0-16.0)
[2021-03-27] MEDS: Sodium Chloride 0.45 % 1,000 ML 100 ML IVCONT ×2 (06:00→20:38)
[2021-03-27 06:26] LABS: Alanine Aminotransferase 36 U/L (0-40); Albumin Level 3.7 g/dL (3.5-5.0); Alkaline Phosphatase 60 U/L (39-117); Anion Gap 11 (12-20); Aspartate Amino Transferase 13 U/L (5-37); Bilirubin Total 0.6 mg/dL (0.0-1.0); Blood Urea Nitrogen 12 mg/dL (9-16); Calcium 8.8 mg/dL (8.4-10.2); Carbon Dioxide 28 mmol/L (22-29); Chloride 105 mmol/L (96-108); Creatinine Clr Calc Pharmacy 111.4; Estimated Glomerular Filt Rate > 60; Glucose Fasting 138 mg/dL (60-99); Potassium 4.1 mmol/L (3.3-5.1); Sodium 140 mmol/L (135-145); Total Protein 6.5 g/dL (6.5-8.0)
[2021-03-27 07:10] LABS: Procalcitonin 0.19 ng/mL
[2021-03-27 07:31] LABS: Glucose, Whole Blood 122 mg/dL (60-115)
[2021-03-27 08:00] VITALS: BP 119/68; PULSE 68; RESP 18; TEMP 36.6; O2SAT 99
[2021-03-27] MEDS: Sucralfate 1 GM TABLET 2 GM PO ×2 (08:00→20:36)
[2021-03-27] MEDS: methADONE HCl 5 MG TABLET PO (08:01)
[2021-03-27 08:05] LABS: Estimated Average Glucose 146 mg/dL; Hemoglobin A1c % 6.7 %
--- NOTE | 2021-03-27 09:56 | HO.PM.IMPN ---
Subjective Subjective Date of Service: 03/27/21 Interval History: This history was taken in Croatian from the patient. Still coughing; dyspnea improved Afebrile Still on suppl O2 2L via [place] Review of Systems Review of Systems: Yes all other systems are reviewed and are negative Physical Exam Vital Signs: Vital Signs: Last Vital Signs Temp 97.8 F 03/27/21 08:00 Pulse 68 03/27/21 08:00 Resp 18 03/27/21 08:00 BP 119/68 03/27/21 08:00 Pulse Ox 99 03/27/21 08:00 BMI result Body Mass Index 27.7 Gen: in no acute distress HEENT: sclera anicteric, moist mucus membranes Neck: supple Lungs: clear to auscultation bilaterally Heart: regular rate and rhythm, no murmurs Abd: soft, non-tender, non-distended Ext: no edema Skin: warm/well-perfused Neuro: alert and oriented x3, no focal findings Psych: appropriate affect Objective Data Active Medications Acetaminophen (Acetaminophen 325 Mg Tablet) 650 mg PO Q6H PRN PRN Reason: Pain, Mild (Pain Scale 1-3) Atorvastatin Calcium (Atorvastatin Calcium 80 Mg Tablet) 80 mg PO BEDTIME [facility] Last Admin: 03/26/21 20:53 Dose: 80 mg Documented by: IVY Dextrose (Dextrose 50 % 25 Gm/50 Ml Vial) 25 gm IVPUSH Q15M PRN; Protocol PRN Reason: per Hypoglycemia Standing Ord. Enoxaparin Sodium (Enoxaparin Sodium 40 Mg/0.4 Ml Syringe) 40 mg SUBCUT Q24H [facility] Last Admin: 03/26/21 20:53 Dose: 40 mg Documented by: IVY Famotidine (Famotidine 20 Mg Tablet) 20 mg PO DAILY PRN PRN Reason: abdominal discomfort Glucose (Glucose Gel 15 Gm Gel..Gram.) 15 gm PO Q15M PRN; Protocol PRN Reason: per Hypoglycemia Standing Ord. Sodium Chloride () 1,000 mls @ 100 mls/hr IVCONT .Q10H [facility] Last Admin: 03/27/21 06:00 Dose: 100 mls/hr Documented by: IVY Ceftriaxone Sodium 1 gm/ (Sodium Chloride) 50 mls @ 100 mls/hr IV Q24H [facility] Last Infusion: 03/26/21 14:29 Dose: 0 mls/hr Documented by: JOSE EDUARDO Azithromycin 500 mg/ Sodium (Chloride) 250 mls @ 125 mls/hr IV Q24H [facility] Last Infusion: 03/26/21 21:05 Dose: 125 mls/hr Documented by: IVY Insulin Human Lispro (Insulin Lispro 100 Unit/Ml 3 Ml Vial) 0 unit SUBCUT QIDACHS [facility]; Protocol Last Admin: 03/26/21 22:34 Dose: Not Given Documented by: IVY Non-Admin Reason: No Insulin Coverage Melatonin (Melatonin 3 Mg Tablet) 6 mg PO BEDTIME PRN PRN Reason: Insomnia Methadone HCl (Methadone Hcl 5 Mg Tablet) 5 mg PO DAILY [facility] Last Admin: 03/27/21 08:01 Dose: 5 mg Documented by: ARELY Naloxone HCl (Naloxone Hcl Nasal 4 Mg [place]) 1 mg NOSTRILALT Q2M PRN PRN Reason: Opiate Reversal Non-Formulary Medication (Buprenorphine [Butrans]) 1 patch TRANSDERMA WE@0900 [facility] Non-Formulary Medication (Linagliptin [Tradjenta]) 5 mg PO DAILY [facility] Ondansetron HCl (Ondansetron Hcl 4 Mg/2 Ml Vial) 4 mg IVPUSH Q8H PRN PRN Reason: Nausea and Vomiting Pharmacy Consult (Consult Rx Perform Med Rec) 1 each MISCELLANE ONCE PRN PRN Reason: Consult order Pharmacy Consult (Consult Rx Perform Med Rec) 1 each MISCELLANE ONCE PRN PRN Reason: Consult order Sodium Chloride (0.9 % Sodium Chloride Flush 3 Ml Syringe) 3 ml IVFLUSH QSHIFT [facility] Last Admin: 03/27/21 08:05 Dose: Not Given Documented by: ARELY Non-Admin Reason: IV Running Sucralfate (Sucralfate 1 Gm Tablet) 2 gm PO BID [facility] Last Admin: 03/27/21 08:00 Dose: 2 gm Documented by: ARELY Labs CBC & Chem 7: 03/27/21 05:24 03/27/21 05:24 Labs: Laboratory Results - last 24 hr 03/26/21 03/26/21 03/26/21 11:08 17:00 19:31 MCV MCH MCHC RDW Plt Count MPV Immature Gran % (Auto) Neut % (Auto) Lymph % (Auto) [place] % (Auto) Eos % (Auto) Baso % (Auto) Lymph # (Auto) [place] # (Auto) Eos # (Auto) Baso # (Auto) Abs Immat Gran (auto) Absolute Neuts (auto) Absolute Nucleated RBC Nucleated RBC % (auto) Anion Gap Estim Creat Clear Calc Estimated GFR POC Glucose 115 162 H 115 Fasting Glucose Estimat Average Glucose Hemoglobin A1c % Calcium Total Bilirubin AST ALT Alkaline Phosphatase Total Protein Albumin Procalcitonin 03/27/21 03/27/21 03/27/21 05:24 05:24 05:24 MCV 88.7 MCH 28.5 MCHC 32.1 RDW 12.4 Plt Count 196 MPV 10.7 Immature Gran % (Auto) 0.7 H Neut % (Auto) 68.0 Lymph % (Auto) 20.5 [place] % (Auto) 9.3 Eos % (Auto) 1.3 Baso % (Auto) 0.2 Lymph # (Auto) 1.8 [place] # (Auto) 0.8 Eos # (Auto) 0.1 Baso # (Auto) 0.0 Abs Immat Gran (auto) 0.06 H Absolute Neuts (auto) 6.1 Absolute Nucleated RBC 0.000 Nucleated RBC % (auto) 0.0 Anion Gap 11 L Estim Creat Clear Calc 111.4 Estimated GFR > 60 POC Glucose Fasting Glucose 138 H Estimat Average Glucose 146 Hemoglobin A1c % 6.7 Calcium 8.8 Total Bilirubin 0.6 AST 13 ALT 36 Alkaline Phosphatase 60 Total Protein 6.5 Albumin 3.7 Procalcitonin 03/27/21 03/27/21 05:24 07:25 MCV MCH MCHC RDW Plt Count MPV Immature Gran % (Auto) Neut % (Auto) Lymph % (Auto) [place] % (Auto) Eos % (Auto) Baso % (Auto) Lymph # (Auto) [place] # (Auto) Eos # (Auto) Baso # (Auto) Abs Immat Gran (auto) Absolute Neuts (auto) Absolute Nucleated RBC Nucleated RBC % (auto) Anion Gap Estim Creat Clear Calc Estimated GFR POC Glucose 122 H Fasting Glucose Estimat Average Glucose Hemoglobin A1c % Calcium Total Bilirubin AST ALT Alkaline Phosphatase Total Protein Albumin Procalcitonin 0.19 Microbiology Microbiology Results: Microbiology 03/25/21 11:20 Blood Culture - Preliminary Blood - Venous No growth after 24 hours. 03/25/21 11:20 Blood Culture - Preliminary Blood - Venous No growth after 24 hours. Assessment and Plan (1) Pneumonia: Status: Acute (2) DMII (diabetes mellitus, type 2): Status: Acute Assessment and Plan: hospital d#3 60yo M with DM2 presenting with dyspnea + cough, admitted for nodular RUL + RLL PNA with hypoxia # acute hypoxic respiratory failure - supplemental O2 via [place], wean as tolerated, home O2 eval in am # CAP - ceftriaxone + azithromycin d#3 - check HIV, RVP # DM2, A1c 6.2 - correction-dose lispro, on linagliptin at home # GERD - continue sucralfate + famotidine # chronic back pain - continue buprenorphine patch + methadone # VTE ppx - LMWH Quality Stroke Does the patient have a stroke diagnosis?: No VTE Prior VTE?: No VTE Risk Level:: Medical - moderate - high VTE Device Contraindication: Treatment Not Indicated VTE Drug Contraindication: N/A - Med Ordered
[2021-03-27 11:32] LABS: Glucose, Whole Blood 113 mg/dL (60-115)
[2021-03-27 11:56] VITALS: BP 135/67; PULSE 78; RESP 17; TEMP 36.1; O2SAT 100
[2021-03-27] MEDS: cefTRIAXone sodium 1 GM in 0.9 % Sodium Chloride 50 ML IV (12:14)
[2021-03-27 15:38] VITALS: BP 132/71; PULSE 87; RESP 17; TEMP 36.1; O2SAT 98
[2021-03-27 16:21] LABS: Glucose, Whole Blood 154 mg/dL (60-115)
[2021-03-27] MEDS: Insulin Lispro 100 UNIT/ML 3 ML VIAL SUBCUT (17:01)
[2021-03-27] MEDS: Azithromycin 500 MG in 0.9 % Sodium Chloride 250 ML 125 MG IV (17:01)
[2021-03-27 20:00] VITALS: RESP 20
[2021-03-27 20:31] LABS: Glucose, Whole Blood 126 mg/dL (60-115)
[2021-03-27] MEDS: Atorvastatin Calcium 80 MG TABLET PO (20:36)
[2021-03-27] MEDS: Enoxaparin Sodium 40 MG/0.4 ML SYRINGE SUBCUT (20:37)
[2021-03-27 22:37] LABS: Adenovirus PCR Not Detected (Not Detect.); Bordetella parapertussis PCR Not Detected (Not Detect.); Bordetella pertussis PCR Not Detected (Not Detect.); Chlamydia pneumoniae PCR Not Detected (Not Detect.); Coronavirus 229E PCR Not Detected (Not Detect.); Coronavirus HKU1 PCR Not Detected (Not Detect.); Coronavirus NL63 PCR Not Detected (Not Detect.); Coronavirus OC43 PCR Not Detected (Not Detect.); Human metapneumovirus PCR Not Detected (Not Detect.); Influenza A PCR Not Detected (Not Detect.); Influenza B PCR Not Detected (Not Detect.); Mycoplasma pneumoniae PCR Not Detected (Not Detect.); Parainfluenza 1 PCR Not Detected (Not Detect.); Parainfluenza 2 PCR Not Detected (Not Detect.); Parainfluenza 3 PCR Not Detected (Not Detect.); Parainfluenza 4 PCR Not Detected (Not Detect.); RSV PCR Not Detected (Not Detect.); Rhino/Enterovirus PCR Not Detected (Not Detect.); SARS-CoV-2 PCR Not Detected (Not Detect.)
[2021-03-28] VITALS: BP 121/71; PULSE 73; RESP 16; TEMP 36.5; O2SAT 97
[2021-03-28 04:00] VITALS: BP 115/63; PULSE 70; RESP 16; TEMP 36.9; O2SAT 98
[2021-03-28 05:51] LABS: MANUAL DIFF FLAG NO
[2021-03-28 05:58] LABS: Basophils Percent Auto 0.4 % (0-2); Eosinophils Absolute Auto 0.2 X10*3/uL (0.0-0.4); Eosinophils Percent Auto 3.2 % (0-4); Hematocrit 38.8 % (42.0-52.0); Hemoglobin 12.7 g/dl (14.0-18.0); Imm Gran Abs Auto 0.03 X10*3/uL (0.00-0.03); Imm Gran Pct Auto 0.4 % (0.0-0.4); Lymphocytes Percent Auto 26.6 % (20-40); Mean Corpuscular HGB Conc 32.7 g/dl (31.0-36.0); Mean Corpuscular Hemoglobin 28.9 pg (27.0-33.0); Mean Corpuscular Volume 88.2 fL (80.0-98.0); Mean Platelet Volume 10.7 fL (9.4-12.4); Monocytes Absolute Auto 0.7 X10*3/uL (0.1-1.2); Monocytes Percent Auto 9.4 % (2-11); Neutrophils Absolute Auto 4.5 x10*3/uL (2.0-8.3); Platelet Count 200 X10*3/uL (160-400); Red Cell Distribution Width 12.2 % (11.0-16.0); White Blood Count 7.6 X10*3/uL (4.8-10.8)
[2021-03-28 06:30] LABS: Alanine Aminotransferase 32 U/L (0-40); Albumin Level 3.8 g/dL (3.5-5.0); Alkaline Phosphatase 64 U/L (39-117); Anion Gap 12 (12-20); Aspartate Amino Transferase 12 U/L (5-37); Bilirubin Total 0.6 mg/dL (0.0-1.0); Blood Urea Nitrogen 13 mg/dL (9-16); Calcium 9.3 mg/dL (8.4-10.2); Carbon Dioxide 29 mmol/L (22-29); Chloride 103 mmol/L (96-108); Creatinine Clr Calc Pharmacy 111.4; Estimated Glomerular Filt Rate > 60; Glucose Fasting 139 mg/dL (60-99); Potassium 4.1 mmol/L (3.3-5.1); Sodium 140 mmol/L (135-145); Total Protein 6.7 g/dL (6.5-8.0)
[2021-03-28] MEDS: Sodium Chloride 0.45 % 1,000 ML 100 ML IVCONT (06:53)
[2021-03-28 07:19] VITALS: BP 117/72; PULSE 71; RESP 17; TEMP 36.8; O2SAT 99
[2021-03-28 07:23] LABS: Glucose, Whole Blood 120 mg/dL (60-115)
[2021-03-28 08:08] LABS: HIV AB/AG Nonreactive (Nonreactive); HIV Num 1 0.05 S/CO (0.00-0.99)
[2021-03-28] MEDS: Sucralfate 1 GM TABLET 2 GM PO (09:16)
[2021-03-28] MEDS: methADONE HCl 5 MG TABLET PO (09:17)
[2021-03-28 11:03] VITALS: BP 128/77; PULSE 89; RESP 16; TEMP 36.7; O2SAT 98
[2021-03-28 11:05] LABS: Glucose, Whole Blood 122 mg/dL (60-115)
--- NOTE | 2021-03-28 11:47 | MHC.CM.PN ---
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 HE HAS NO VNA , NO PCS, NO DME SERVICES ION THE HOME , HE CONFIRMED HE HAS HAD THE COVID VACCINATIONS PFZIER HE HAS NO HCP AND EDUCATION WAS GIVEN REGARDING THE IMPORTANCE OF THIS , HE WILL TALK IT OVER WITH HIS /FA,ANDREW, DISCHARGE PLAN ANTICIPATE HOME NO SEVRICES TRANSPORTATION FAMILY MEDICARE IMM 03/28/21 EDUCATED ABOUT THE IMPORTANCE OF HAVING A HCP.
--- NOTE | 2021-03-28 12:30 | P.DS_ITS ---
DS: Providers Provider Date of Service: 03/28/21 Date of admission: 03/25/21 17:24 Date of discharge: 03/28/21 Primary care physician: Isela Bernstein NP Admitting clinician: Byron Clement Attending physician on admission: Byron Clement Attending physician on discharge: Renetta Del Cid Discharging clinician: Renetta Del Cid DS: Diagnosis Discharge Diagnosis (1) Pneumonia: Status: Acute (2) DMII (diabetes mellitus, type 2): Status: Acute (3) Acute respiratory failure with hypoxia: Status: Acute (4) Sepsis: Status: Acute DS: Summary Hospital Course Hospital Course: from admission H+P, 03/25/21: 52-year-old male with past medical history of fatty liver disease GERD Neuro bowel as well as type 2 diabetes presents with worsening cough and shortness of breath over the last 3 days.? He notes worsening shortness of breath with exertion along with headache fever and chills.? States recently had COVID-19 in the summer 2020.? Recently traveled to [place] and has returned.? Symptoms started shortly thereafter.? He was swab COVID negative in the ER.? CT scan in the emergency room demonstrated right upper lower lobe infiltrates.? Patient noted to desat into the 80s with exertion.? He will be admitted for treatment the same This 60yo M with DM2 presenting with dyspnea + cough was admitted for nodular RUL + RLL PNA with hypoxia and sepsis. Testing for Covid-19 was negative. He was treated with ceftriaxone and azithromcyin and weaned off of supplemental oxygen. Blood cultures were negative; HIV Ab/Ag was negative. He was discharged home on high-dose amoxicillin and azithromycin. He should follow up with his primary care doctor in 1 week. Time Spent with Patient Time attestation: Total time spent providing and/or coordinating discharge services: Discharge coordination time: Greater than 30 minutes Quality: Stroke Does the patient have a stroke diagnosis?: No Physical Exam Vital Signs: Vital Signs: Last Vital Signs Temp 98.0 F 03/28/21 11:03 Pulse 89 03/28/21 11:03 Resp 16 03/28/21 11:03 BP 128/77 03/28/21 11:03 Pulse Ox 98 03/28/21 11:03 BMI result Body Mass Index 27.7 Gen: in no acute distress HEENT: sclera anicteric, moist mucus membranes Neck: supple Lungs: clear to auscultation bilaterally Heart: regular rate and rhythm, no murmurs Abd: soft, non-tender, non-distended Ext: no edema Skin: warm/well-perfused Neuro: alert and oriented x3, no focal findings Psych: appropriate affect DS: Data Data Completed and Pending Completed studies during hospitalization [Text1]: Laboratory Results WBC 7.6 X10*3/uL (4.8-10.8) 03/28/21 05:23 RBC 4.40 X10*6/uL (4.60-5.80) L 03/28/21 05:23 Hgb 12.7 g/dl (14.0-18.0) L 03/28/21 05:23 Hct 38.8 % (42.0-52.0) L 03/28/21 05:23 MCV 88.2 fL (80.0-98.0) 03/28/21 05:23 MCH 28.9 pg (27.0-33.0) 03/28/21 05:23 MCHC 32.7 g/dl (31.0-36.0) 03/28/21 05:23 RDW 12.2 % (11.0-16.0) 03/28/21 05:23 Plt Count 200 X10*3/uL (160-400) 03/28/21 05:23 MPV 10.7 fL (9.4-12.4) 03/28/21 05:23 Immature Gran % (Auto) 0.4 % (0.0-0.4) 03/28/21 05:23 Neut % (Auto) 60.0 % (45-73) 03/28/21 05:23 Lymph % (Auto) 26.6 % (20-40) 03/28/21 05:23 [place] % (Auto) 9.4 % (2-11) 03/28/21 05:23 Eos % (Auto) 3.2 % (0-4) 03/28/21 05:23 Baso % (Auto) 0.4 % (0-2) 03/28/21 05:23 Lymph # (Auto) 2.0 X10*3/uL (1.2-4.9) 03/28/21 05:23 [place] # (Auto) 0.7 X10*3/uL (0.1-1.2) 03/28/21 05:23 Eos # (Auto) 0.2 X10*3/uL (0.0-0.4) 03/28/21 05:23 Baso # (Auto) 0.0 X10*3/uL (0.0-0.2) 03/28/21 05:23 Abs Immat Gran (auto) 0.03 X10*3/uL (0.00-0.03) 03/28/21 05:23 Absolute Neuts (auto) 4.5 x10*3/uL (2.0-8.3) 03/28/21 05:23 Absolute Nucleated RBC 0.000 X10*3/uL (0.0-0.012) 03/28/21 05:23 Nucleated RBC % (auto) 0.0 /100WBC (0.0-0.2) 03/28/21 05:23 Sodium 140 mmol/L (135-145) 03/28/21 05:23 Potassium 4.1 mmol/L (3.3-5.1) 03/28/21 05:23 Chloride 103 mmol/L (96-108) 03/28/21 05:23 Carbon Dioxide 29 mmol/L (22-29) 03/28/21 05:23 Anion Gap 12 (12-20) 03/28/21 05:23 BUN 13 mg/dL (9-16) 03/28/21 05:23 Creatinine 0.84 mg/dL (0.5-1.4) 03/28/21 05:23 Estim Creat Clear Calc 111.4 03/28/21 05:23 Estimated GFR > 60 03/28/21 05:23 POC Glucose 122 mg/dL (60-115) H 03/28/21 10:59 Random Glucose 238 mg/dL (60-115) H 03/25/21 10:02 Fasting Glucose 139 mg/dL (60-99) H 03/28/21 05:23 Estimat Average Glucose 146 mg/dL 03/27/21 05:24 Hemoglobin A1c % 6.7 % 03/27/21 05:24 Lactic Acid 1.8 mmol/L (0.5-2.0) 03/25/21 11:20 Calcium 9.3 mg/dL (8.4-10.2) 03/28/21 05:23 Total Bilirubin 0.6 mg/dL (0.0-1.0) 03/28/21 05:23 AST 12 U/L (5-37) 03/28/21 05:23 ALT 32 U/L (0-40) 03/28/21 05:23 Alkaline Phosphatase 64 U/L (39-117) 03/28/21 05:23 Troponin I High Sens < 3.5 ng/L (<3.5-35.0) 03/25/21 11:20 Total Protein 6.7 g/dL (6.5-8.0) 03/28/21 05:23 Albumin 3.8 g/dL (3.5-5.0) 03/28/21 05:23 Procalcitonin 0.19 ng/mL 03/27/21 05:24 Respiratory Panel Flores See Note 03/27/21 22:29 Adenovirus (Rapid PCR) Not Detected (Not Detect.) 03/27/21 22:29 B.pert (TEM-PCR) Not Detected (Not Detect.) 03/27/21 22:29 B.parapertussis DNA PCR Not Detected (Not Detect.) 03/27/21 22:29 C. pneumoniae DNA (PCR) Not Detected (Not Detect.) 03/27/21 22: Coronavirus OC43 (PCR) Not Detected (Not Detect.) 03/27/21 22: Coronavirus HKU1 (PCR) Not Detected (Not Detect.) 03/27/21 22:29 Coronavirus 229E (PCR) Not Detected (Not Detect.) 03/27/21 22:29 COVID-19 (LISETH) Negative (Negative) 03/25/21 12:42 COVID-19 Clin Com See Note 03/25/21 12:42 Coronavirus NL63 (PCR) Not Detected (Not Detect.) 03/27/21 22:29 HIV 1&2 Ab/P24 Ag 4thGn Nonreactive (Nonreactive) 03/28/21 05:23 Human Metapneumovir PCR Not Detected (Not Detect.) 03/27/21 22:29 Influenza A (RT-PCR) Not Detected (Not Detect.) 03/27/21 22:29 Influenza B (RT-PCR) Not Detected (Not Detect.) 03/27/21 22:29 M. pneumoniae (PCR) Not Detected (Not Detect.) 03/27/21 22:29 Parainfluenza 1 (PCR) Not Detected (Not Detect.) 03/27/21 22:29 Parainfluenza 2 (PCR) Not Detected (Not Detect.) 03/27/21 22:29 Parainfluenza 3 (PCR) Not Detected (Not Detect.) 03/27/21 22:29 Parainfluenza 4 (PCR) Not Detected (Not Detect.) 03/27/21 22:29 RSV (PCR) Not Detected (Not Detect.) 03/27/21 22:29 Entero/Rhino (PCR) Not Detected (Not Detect.) 03/27/21 22:29 SARS-CoV-2 RNA (RT-PCR) Not Detected (Not Detect.) 03/27/21 22:29 Impressions Chest X-Ray 03/25/21 10:40 IMPRESSION: No acute disease. Old granulomatous disease. Pulmonary Perfusion Imaging 03/25/21 13:45 IMPRESSION: Normal radionuclide lung perfusion scan. Chest CT 03/25/21 14:44 IMPRESSION: Small scattered semisolid nodular opacities in the right upper lobe and right lower lobe. This probably represents pneumonia. Fleischner guidelines were followed. Discharge Plan Discharge Patient Disposition: Home, Self-Care Discharge Diagnosis: community-acquired pneumonia, hypoxia [resolved] Referrals: Isela Bernstein, CHEMICAL INSTRUMENTATION OFFICER [Primary Care Provider] - 1 Week Discharge Medications: New amoxicillin 500 mg tablet 1,000 mg PO TID Qty: 18 RF: 0 azithromycin 250 mg tablet 250 mg PO DAILY 3 Days Qty: 3 RF: 0 Continued Tradjenta 5 mg tablet 5 mg PO DAILY Qty: 90 RF: 1 famotidine [Pepcid] 20 mg tablet 20 mg PO DAILY PRN (Reason: abdominal discomfort) Qty: 30 RF: 0 methadone 5 mg tablet 5 mg PO DAILY RF: 0 buprenorphine [Butrans] 10 mcg/hour patch weekly 1 patch transdermal WE@0900 RF: 0 Narcan 4 mg/actuation spray,non-aerosol 1 spray intranasal Q2M Qty: 1 RF: 0 rosuvastatin 20 mg tablet 20 mg PO BEDTIME RF: 0 sucralfate [Carafate] 1 gram tablet 2 g PO BID 30 Days Qty: 120 RF: 6 Discharge Orders: Discharge Order (Routine); Ordered 03/28/21 Ordered By: Renetta Del Cid Diet: advance to usual diet and diabetic diet Activity on Discharge: As tolerated Stand Alone Forms: Patient Portal Discharge page Care Plan Goals: recovery from pneumonia Health Concerns: pneumonia Plan of Treatment: amoxicillin 1000 mg (two 500 mg tablets) 3x a day for 3 days azithromycin 250 mg daily for 3 days see your primary care doctor in 1 week Assessment: see Discharge Summary Patient Instructions: Pneumonia (DC)
[2021-03-28] MEDS: cefTRIAXone sodium 1 GM in 0.9 % Sodium Chloride 50 ML IV (13:51)
--- NOTE | 2021-04-01 08:36 | P.CDIR_ITS ---
Documented by User: Mya Holden CCS, CDIS 04/01/21 08:44 Retrospective Query PHYSICIAN'S DOCUMENTATION REQUEST Date of Query: 04/01/21 0836 Patient Name: Sridhar Bray Admit Date: 03/25/21 Dear Doctor, A review of the medical record indicates additional documentation may be needed. Please review below and update the documentation accordingly. Confirmation of a diagnosis noted in the Discharge Summary: Risk Factors/Clinical Indicators/Treatments ED: 03/25 - no infection at this time, LA not elevated, denies fever, leukocytosis 13.7 likely reactive to dehydration. Tachycardia likely due to vomiting not infection at this time. Temp 98.3 RR 16 HR 85 initally tachycardic 120-130's. H&P: CAP - Ceftriaxone & Azithromycin, supplemental oxygen as needed. PN: 03/26 & 03/27 - CAP, hypoxia. Discharge summary - Sepsis, pneumonia, acute hypoxic respiratory failure. Sepsis Systemic manifestations of infection, with 2 or more SIRS criteria which include: * Fever > 100.4?F or hypothermia < 96.8?F * Leukocytosis ? WBC > 12,000 or leukopenia, WBC < 4,000, or > 10% bands * Tachycardia- > 90 beats/minute * Tachypnea- RR > 20 breaths/minute or PaCO2 < 32mmHg Source: Merck Manual 2013 Documentation should include the known or suspected organism, and the underlying infection, such as UTI or pneumonia Based on the above information and the recognized standard for sepsis, could you please clarify in the Progress Notes if this diagnoses is still accurate and reflective of the patient's condition to ensure quality of the medical record. * Sepsis is/was present and is a clinical diagnosis based on (please include this additional support in the medical record) * After study (the condition) has been ruled out * Other (please specify) * Unable to determine Use of terms such as suspected, likely, concern for, or probable (associated with a specific diagnosis that is being evaluated, monitored, or treated as if it exists) are acceptable and can be coded in the inpatient setting, when documented at the time of discharge. Thank you Mya Holden CCS, CDIS Extension:[phone] Please use your independent medical judgment in providing your response. THIS QUERY IS PART OF THE PERMANENT MEDICAL RECORD Documented by User: Renetta Del Cid MD 04/01/21 10:52 Retrospective Query Provider Response: Other (Sepsis is/was present and is a clinical diagnosis based on radiographic evidence of pneumonia on CT chest at 16:00. This was not known at the time the SIRS criteria were attributed to other factors)
== END 2021-03-28 15:02 | disposition home or self-care (01) | DRG 871 ==
LOC: HO.ED 16:42 → HO.EDOVER 17:45 → HO.S3 03-26 01:23
PROVIDERS: Nurse Practitioner Family; Admitting Provider Hospitalist; Emergency Provider Emergency Medicine; PCP Hospitalist; Visit Provider Family Medicine
DX: A41.9 Sepsis, unspecified organism (principal); J96.01 Acute respiratory failure with hypoxia; J18.9 Pneumonia, unspecified organism; I95.9 Hypotension, unspecified; E86.0 Dehydration; E11.9 Type 2 diabetes mellitus without complications; K21.9 Gastro-esophageal reflux disease without esophagitis; G89.29 Other chronic pain; Z86.16 Personal history of COVID-19; Z88.5 Allergy status to narcotic agent; Z79.891 Long term (current) use of opiate analgesic; Z79.899 Other long term (current) drug therapy
CPT/HCPCS: 36415; 71046; 71250; 78580; 80053; 82947; 83036; 83605; 84145; 84484; 85025; 87040; 87389; 87633; 87635; 93005; 96365; 99285; A9540; J0456; J0696; J1650; J2405

== ENCOUNTER → 2021-03-29 08:17 | Outpatient (BNVA) | payer BC, MEDICAID, SELFPAY | PROVIDERS: PCP Hospitalist; Visit Provider Internal Medicine ==

== ENCOUNTER → 2021-04-25 08:03 | Outpatient (BNVA) | payer MEDICARE, MEDICAID, SELFPAY | PROVIDERS: PCP Hospitalist; Visit Provider Internal Medicine | DX: Z51.81 Encounter for therapeutic drug level monitoring (principal); F11.20 Opioid dependence, uncomplicated; M96.1 Postlaminectomy syndrome, not elsewhere classified | CPT/HCPCS: 99212 ==

== ENCOUNTER → 2021-05-23 08:03 | Outpatient (BNVA) | payer MEDICARE, MEDICAID, SELFPAY | PROVIDERS: PCP Hospitalist; Visit Provider Internal Medicine | DX: Z51.81 Encounter for therapeutic drug level monitoring (principal); F11.20 Opioid dependence, uncomplicated; M54.16 Radiculopathy, lumbar region; M48.061 Spinal stenosis, lumbar region without neurogenic claudication; M96.1 Postlaminectomy syndrome, not elsewhere classified | CPT/HCPCS: 99212 ==

== ENCOUNTER 2021-06-06 08:37 | Outpatient (REF) | payer MEDICARE, MEDICAID, SELFPAY ==
[2021-06-06 11:49] LABS: Hematocrit 40.8 % (42.0-52.0); Mean Corpuscular HGB Conc 31.9 g/dl (31.0-36.0); Mean Corpuscular Hemoglobin 28.7 pg (27.0-33.0); Mean Corpuscular Volume 90.1 fL (80.0-98.0); Platelet Count 204 X10*3/uL (160-400); Red Blood Count 4.53 X10*6/uL (4.60-5.80); Red Cell Distribution Width 12.6 % (11.0-16.0); White Blood Count 4.8 X10*3/uL (4.8-10.8)
[2021-06-06 12:09] LABS: Alanine Aminotransferase 90 U/L (0-40); Albumin Level 4.1 g/dL (3.5-5.0); Alkaline Phosphatase 68 U/L (39-117); Anion Gap 13 (12-20); Aspartate Amino Transferase 36 U/L (5-37); Bilirubin Total 0.5 mg/dL (0.0-1.0); Blood Urea Nitrogen 16 mg/dL (9-16); Calcium 9.2 mg/dL (8.4-10.2); Carbon Dioxide 28 mmol/L (22-29); Chloride 102 mmol/L (96-108); Cholesterol 235 mg/dL; Estimated Glomerular Filt Rate > 60; Glucose Random 207 mg/dL (60-115); HDL Cholesterol 35 mg/dL; LDL Cholesterol Calculated 150 mg/dl; Potassium 4.6 mmol/L (3.3-5.1); Sodium 138 mmol/L (135-145); Total Protein 7.1 g/dL (6.5-8.0); Triglycerides 254 mg/dL
[2021-06-06 12:30] LABS: TSH reflex Free T4 0.43 uIU/mL (0.32-4.0)
== END 2021-06-06 08:38 | disposition home or self-care (01) ==
LOC: HO.WFDLDS 08:37
PROVIDERS: Visit Provider Hospitalist
DX: Z00.00 Encounter for general adult medical examination without abnormal findings (principal); E11.9 Type 2 diabetes mellitus without complications
CPT/HCPCS: 36415; 80053; 80061; 84443; 85027

== ENCOUNTER → 2021-06-20 08:06 | Outpatient (BNVA) | payer MEDICARE, MEDICAID, SELFPAY | PROVIDERS: PCP Hospitalist; Visit Provider Nurse Practitioner Family | DX: Z51.81 Encounter for therapeutic drug level monitoring (principal); F11.20 Opioid dependence, uncomplicated; M54.16 Radiculopathy, lumbar region; M48.061 Spinal stenosis, lumbar region without neurogenic claudication; M96.1 Postlaminectomy syndrome, not elsewhere classified | CPT/HCPCS: 99212 ==

== ENCOUNTER → 2021-07-18 08:02 | Outpatient (BNVA) | payer MEDICARE, MEDICAID, SELFPAY | PROVIDERS: PCP Hospitalist; Visit Provider Nurse Practitioner Family | DX: M54.16 Radiculopathy, lumbar region (principal); M48.061 Spinal stenosis, lumbar region without neurogenic claudication; M54.12 Radiculopathy, cervical region; M96.1 Postlaminectomy syndrome, not elsewhere classified; Z79.891 Long term (current) use of opiate analgesic | CPT/HCPCS: 99212 ==

== ENCOUNTER → 2021-07-19 07:51 | Outpatient (BNVA) | payer MEDICARE, MEDICAID, SELFPAY | PROVIDERS: PCP Hospitalist; Referring Provider Hospitalist; Visit Provider Nurse Practitioner | DX: K75.81 Nonalcoholic steatohepatitis (NASH) (principal); K21.00 Gastro-esophageal reflux disease with esophagitis, without bleeding; E11.9 Type 2 diabetes mellitus without complications | CPT/HCPCS: 99212 ==

== ENCOUNTER → 2021-08-16 08:01 | Outpatient (BNVA) | payer MEDICARE, MEDICAID, SELFPAY | PROVIDERS: PCP Hospitalist; Visit Provider Nurse Practitioner Family | DX: Z51.81 Encounter for therapeutic drug level monitoring (principal); F11.20 Opioid dependence, uncomplicated; M54.16 Radiculopathy, lumbar region; M96.1 Postlaminectomy syndrome, not elsewhere classified; M47.816 Spondylosis without myelopathy or radiculopathy, lumbar region; M48.061 Spinal stenosis, lumbar region without neurogenic claudication | CPT/HCPCS: 99212 ==

== ENCOUNTER 2021-08-21 07:21 | Emergency (ER) | payer MEDICARE, MEDICAID, SELFPAY ==
[2021-08-21 07:27] VITALS: BP 138/82; PULSE 79; RESP 16; TEMP 36; O2SAT 99; BMI 29.0
--- NOTE | 2021-08-21 09:14 | ED.BACK ---
HPI - Back Pain/Injury General Chief Complaint: Back Pain/Injury Stated Complaint: Back pain/L leg pain Time Seen by Provider: 08/21/21 09:13 Related Data Home Medications Medication Instructions Recorded Confirmed rosuvastatin 20 mg tablet 20 mg PO BEDTIME 01/17/21 06/06/21 Previous Rx's Medication Instructions Recorded naloxone 4 mg/actuation nasal 1 spray INTRANASAL Q2M #1 ea 01/20/20 spray (Narcan) linagliptin 5 mg tablet (Tradjenta) 5 mg PO DAILY #90 tab 02/02/21 blood sugar diagnostic (FreeStyle #50 ea 06/06/21 Lite Strips) blood-glucose meter (FreeStyle #1 ea 06/06/21 Lite Meter) ferrous sulfate 325 mg (65 mg 325 mg PO DAILY 90 Days #90 tab 06/06/21 iron) tablet lancets 28 gauge (FreeStyle #100 ea 06/06/21 Lancets) omeprazole 40 mg capsule,delayed 40 mg PO DAILY 30 Days #30 cap 07/19/21 release sucralfate 1 gram tablet (Carafate) 2 g PO DAILY 30 Days #60 tab 07/19/21 methadone 5 mg tablet 5 mg PO BID 10 Days #20 tab 08/16/21 Allergies Allergy/AdvReac Type Severity Reaction Status Date / Time fentanyl Allergy Intermediate itching Verified 08/16/21 08:16 morphine [Amber] Allergy Intermediate itch Verified 08/16/21 08:16 Iodinated Contrast Media Allergy Mild DIFFICULTY Verified 08/16/21 08:16 [IV Dye, Iodine Containing] BREATHING,VOMITING metformin AdvReac Intermediate stomach Verified 08/16/21 08:16 pain PMFSH Past Medical History Medical History Arthritis Cervical radiculopathy Diabetes DMII (diabetes mellitus, type 2) Elevated liver transaminase level High cholesterol Lumbar post-laminectomy syndrome Lumbar radiculopathy, chronic Lumbar spinal stenosis Narcotic drug use Surgical History History of cholecystectomy History of elbow surgery History of lumbar fusion Family History Family History Father Liver problem Alcoholism Substance use disorder Mother No problems noted. Brother CAD (coronary artery disease) Social History Social History Household Members: Family Housing: House Do you presently have visiting nurse or other home services: No Alcohol intake: never Patient Tobacco Use Status: Never used Tobacco e-Cigarette/Vaping Use: Never Used Second Hand Smoke Exposure: No Advance Directives: No Advance Directives Information Provided: No service: No Current occupational status: employed and disabled Current occupational exposures/hazards: No Cognitive needs: Yes (cane) Hearing needs: No Vision needs: Yes (reading glasses) Physical Exam Vital Signs: Vital Signs: Last Vital Signs Temp 96.8 F 08/21/21 07:27 Pulse 79 08/21/21 07:27 Resp 16 08/21/21 07:27 BP 138/82 08/21/21 07:27 Pulse Ox 99 08/21/21 07:27 BMI result Body Mass Index 29.0 Discharge Plan Discharge Prescriptions: No Action Tradjenta 5 mg tablet 5 mg PO DAILY Qty: 90 1RF ferrous sulfate 325 mg (65 mg iron) tablet 325 mg PO DAILY 90 Days Qty: 90 0RF (DME) blood-glucose meter [FreeStyle Lite Meter] Kit See Rx Instructions .ROUTE .MEDSUPPLY Qty: 1 0RF Rx Instructions: check blood sugars daily and pern (DME) FreeStyle Lite Strips Strip See Rx Instructions .ROUTE .MEDSUPPLY Qty: 50 8RF Rx Instructions: As directed (DME) lancets [FreeStyle Lancets] 28 gauge misc See Rx Instructions .ROUTE .MEDSUPPLY Qty: 100 4RF Rx Instructions: As directed Narcan 4 mg/actuation spray,non-aerosol 1 spray intranasal Q2M Qty: 1 0RF Rx Instructions: spray 1 dose into ONE nostril; alternate nostrils w each dose until help arrives rosuvastatin 20 mg tablet 20 mg PO BEDTIME 0RF omeprazole 40 mg capsule,delayed release(DR/EC) 40 mg PO DAILY 30 Days Qty: 30 6RF sucralfate [Carafate] 1 gram tablet 2 g PO DAILY 30 Days Qty: 60 6RF methadone 5 mg tablet 5 mg PO BID 10 Days Qty: 20 0RF
--- NOTE | 2021-08-21 09:44 | ED.BACK ---
HPI - Back Pain/Injury General Chief Complaint: Back Pain/Injury Stated Complaint: Back pain/L leg pain Time Seen by Provider: 08/21/21 09:13 Source: patient Mode of arrival: ambulatory Limitations: no limitations History of Present Illness HPI Narrative: Patient presents emergency department with reports of left lower back pain radiating down the left leg. He reports a history of chronic back pain for which he is currently prescribed methadone 5 mg from pain management clinic. He reports for the past few days he has noticed worsening of his pain. He does endorse that he has been doing a lot of work, moving things, and thinks he may have exacerbated his pain in this way. Pain is made worse with prolonged sitting or standing. Denies recent fevers, chills, burning with micturition, urinary frequency/urgency/hesitancy, bladder or bowel dysfunction, numbness or tingling of the perineum or bilateral legs. Denies any recent surgical procedures, any known immune compromising conditions, personal history of cancer, or IV drug usage. MD elicited complaint: back pain Pertinent past history: prior back pain Onset (ago): day(s) (Exacerbated pain) Timing: constant Related Data Home Medications Medication Instructions Recorded Confirmed rosuvastatin 20 mg tablet 20 mg PO BEDTIME 01/17/21 06/06/21 Previous Rx's Medication Instructions Recorded naloxone 4 mg/actuation nasal 1 spray INTRANASAL Q2M #1 ea 01/20/20 spray (Narcan) linagliptin 5 mg tablet (Tradjenta) 5 mg PO DAILY #90 tab 02/02/21 blood sugar diagnostic (FreeStyle #50 ea 06/06/21 Lite Strips) blood-glucose meter (FreeStyle #1 ea 06/06/21 Lite Meter) ferrous sulfate 325 mg (65 mg 325 mg PO DAILY 90 Days #90 tab 06/06/21 iron) tablet lancets 28 gauge (FreeStyle #100 ea 06/06/21 Lancets) omeprazole 40 mg capsule,delayed 40 mg PO DAILY 30 Days #30 cap 07/19/21 release sucralfate 1 gram tablet (Carafate) 2 g PO DAILY 30 Days #60 tab 07/19/21 methadone 5 mg tablet 5 mg PO BID 10 Days #20 tab 08/16/21 Allergies Allergy/AdvReac Type Severity Reaction Status Date / Time fentanyl Allergy Intermediate itching Verified 08/16/21 08:16 morphine [Amber] Allergy Intermediate itch Verified 08/16/21 08:16 Iodinated Contrast Media Allergy Mild DIFFICULTY Verified 08/16/21 08:16 [IV Dye, Iodine Containing] BREATHING,VOMITING metformin AdvReac Intermediate stomach Verified 08/16/21 08:16 pain Review of Systems Review of Systems: Constitutional: No weight loss, fever, chills, weakness or fatigue. HEENT: No visual loss, blurred vision, double vision. No hearing loss, sneezing, congestion, runny nose or sore throat. Skin: No rash or itching. Cardiovascular: No chest pain, chest pressure or chest discomfort. No palpitations or pedal edema. Respiratory: No shortness of breath, cough or sputum production. Gastrointestinal: No anorexia, nausea, vomiting or diarrhea. No abdominal pain or blood in stool. Genitourinary: No burning micturition. No urinary frequency or incontinence. Neurologic: No headache, dizziness, syncope, unilateral weakness, ataxia, numbness or tingling in the extremities. No change in bowel or bladder control. Musculoskeletal: + Back pain as noted in HPI. No joint pain or stiffness. Endocrine: No polyuria or polydipsia. Yes all other systems are reviewed and are negative PMFSH Past Medical History Attestation statement: The following information was validated with the patient. Source: old records reviewed Medical History Arthritis Cervical radiculopathy Diabetes DMII (diabetes mellitus, type 2) Elevated liver transaminase level High cholesterol Lumbar post-laminectomy syndrome Lumbar radiculopathy, chronic Lumbar spinal stenosis Narcotic drug use Surgical History History of cholecystectomy History of elbow surgery History of lumbar fusion Family History Family History Father Liver problem Alcoholism Substance use disorder Mother No problems noted. Brother CAD (coronary artery disease) Social History Social History Household Members: Family Housing: House Do you presently have visiting nurse or other home services: No Alcohol intake: never Patient Tobacco Use Status: Never used Tobacco e-Cigarette/Vaping Use: Never Used Second Hand Smoke Exposure: No Use of substances other than those prescribed or required for medical reasons: No Advance Directives: No Advance Directives Information Provided: No service: No Current occupational status: employed and disabled Current occupational exposures/hazards: No Cognitive needs: Yes (cane) Hearing needs: No Vision needs: Yes (reading glasses) Physical Exam Vital Signs: Vital Signs: Last Vital Signs Temp 96.8 F 08/21/21 07:27 Pulse 64 08/21/21 09:56 Resp 20 08/21/21 09:56 BP 135/80 08/21/21 09:56 Pulse Ox 100 08/21/21 09:56 BMI result Body Mass Index 29.0 Vital signs have been reviewed as normal and appeared to be correct. Blood pressure normal.? Heart rate normal.? Respiration rate normal. Temperature normal.? Oxygen saturation normal. Appearance: Alert.?Oriented to person, place and time. No acute distress.?Normal affect. Eyes: Pupils equal, round and reactive to light.? ENT: Pharynx normal.?? Neck: Normal inspection.? Neck supple.?? CVS: Heart sounds normal. Normal heart rate and rhythm.? Pulses normal; bilateral radial pulses 2+, bilateral posterior tibial/dorsalis pedis pulses 2+.? Respiratory: No respiratory distress.? Lung sounds clear to auscultation bilaterally?? Abdomen: Soft and non-tender. Normoactive bowel sounds. No pulsatile mass.?? Skin: Skin warm and dry.? Normal skin color.? Normal skin turgor.?? Extremities: No lower extremity edema.? No calf ttp? Back: + moderate paraspinal muscular tenderness from left lumbar region to coccyx. No CVA tenderness. No midline spinal tenderness, step-off's, or deformity. Full ROM intact in bilateral lower extremities. Straight leg test negative on right; Straight leg test positive on left. No rashes, lesions, areas of induration or fluctuance, or signs of infection noted. Neuro: Moves all extremities spontaneously. 5/5 strength in hip extension/flexion, abduction, adduction. Sensation to light touch intact bilaterally. Patellar and Achilles reflex 2+ bilaterally. No ataxia, gait normal and steady.. No focal neuro deficits. Course Course Course Narrative: Patient is a 60-year-old male with a past medical history of arthritis, cervical radiculopathy, diabetes, hypercholesterolemia, lumbar radiculopathy, lumbar spinal stenosis, history of prior lumbar fusion, presenting to emergency department for evaluation of acute on chronic low back pain. Pain is most consistent with exacerbated chronic lumbar radiculopathy, although cannot completely exclude herniated disc. On neurological exam there are no deficits. Not consistent with spinal fracture, spinal infection, epidural abscess, AAA, epidural abscess, or dissection. No high risk past medical history including incontinence, fever, immunosuppression, recent surgery or lumbar puncture, coagulopathy, significant trauma, recent unintentional weight loss, pulsatile mass, history of cancer, history of TB, history of IV drug use that would warrant MRI or CT. No symptoms, not consistent with pyelonephritis, urinary tract infection, renal calculi, or GI symptoms, so not consistent with appendicitis or diverticulitis. On exam no concern for cauda equina syndrome. No imaging is currently indicated at this time. Patient to receive ketorolac IM, Tylenol p.o. while in the emergency department. Discussed with patient plan of care for gentle stretching and exercising of the lower back, proper body mechanisms when lifting pushing or pulling. Advised plan for discharge home with outpatient follow-up with Pain Management Clinic, and follow-up with primary care provider, discussed reasons he should return back to the emergency department, patient agreed with plan. Discharge Plan Discharge Clinical Impression: Lumbar radiculopathy Patient Disposition: Home, Self-Care Instructions: Lumbar Radiculopathy (ED), Lower Back Exercises (ED) Additional Instructions: You received an injection ketorolac while in the emergency department. As we discussed, please follow-up with your pain management clinic as needed for any worsening of pain. Engage in gentle stretching and lower back exercises. Use proper body mechanics when moving objects lifting things etc. to prevent new back injury. You may return to the emergency department any new or worsening symptoms or concerns. Prescriptions: No Action Tradjenta 5 mg tablet 5 mg PO DAILY Qty: 90 1RF ferrous sulfate 325 mg (65 mg iron) tablet 325 mg PO DAILY 90 Days Qty: 90 0RF (DME) blood-glucose meter [FreeStyle Lite Meter] Kit See Rx Instructions .ROUTE .MEDSUPPLY Qty: 1 0RF Rx Instructions: check blood sugars daily and pern (DME) FreeStyle Lite Strips Strip See Rx Instructions .ROUTE .MEDSUPPLY Qty: 50 8RF Rx Instructions: As directed (DME) lancets [FreeStyle Lancets] 28 gauge misc See Rx Instructions .ROUTE .MEDSUPPLY Qty: 100 4RF Rx Instructions: As directed Narcan 4 mg/actuation spray,non-aerosol 1 spray intranasal Q2M Qty: 1 0RF Rx Instructions: spray 1 dose into ONE nostril; alternate nostrils w each dose until help arrives rosuvastatin 20 mg tablet 20 mg PO BEDTIME 0RF omeprazole 40 mg capsule,delayed release(DR/EC) 40 mg PO DAILY 30 Days Qty: 30 6RF sucralfate [Carafate] 1 gram tablet 2 g PO DAILY 30 Days Qty: 60 6RF methadone 5 mg tablet 5 mg PO BID 10 Days Qty: 20 0RF Interventions: ED Discharge Assessment Last Done: 08/21/21 10:27 Discharge Date/Time: 08/21/21 10:27
[2021-08-21] MEDS: Acetaminophen 325 MG TABLET 975 MG PO (09:53)
[2021-08-21] MEDS: Ketorolac Tromethamine 60 MG/2 ML VIAL IM (09:53)
[2021-08-21 09:56] VITALS: BP 135/80; PULSE 64; RESP 20; O2SAT 100
== END 2021-08-21 10:27 | disposition home or self-care (01) ==
PROVIDERS: Emergency Provider Student in an Organized Health Care Education/Training Program; PCP Hospitalist
DX: M54.16 Radiculopathy, lumbar region (principal); E11.9 Type 2 diabetes mellitus without complications; E78.5 Hyperlipidemia, unspecified; Z79.891 Long term (current) use of opiate analgesic; Z79.02 Long term (current) use of antithrombotics/antiplatelets
CPT/HCPCS: 96372; 99284; J1885

== ENCOUNTER → 2021-09-15 08:00 | Outpatient (BNVA) | payer MEDICARE, MEDICAID, SELFPAY | PROVIDERS: PCP Hospitalist; Visit Provider Nurse Practitioner Family | DX: Z51.81 Encounter for therapeutic drug level monitoring (principal); M96.1 Postlaminectomy syndrome, not elsewhere classified; M54.16 Radiculopathy, lumbar region; M48.061 Spinal stenosis, lumbar region without neurogenic claudication; M47.816 Spondylosis without myelopathy or radiculopathy, lumbar region; Z79.891 Long term (current) use of opiate analgesic | CPT/HCPCS: 99212 ==

== ENCOUNTER 2021-10-05 11:20 | Outpatient (REF) | payer MEDICARE, MEDICAID, SELFPAY ==
[2021-10-05 13:47] LABS: Hematocrit 45.3 % (42.0-52.0); Hemoglobin 14.7 g/dl (14.0-18.0); Mean Corpuscular HGB Conc 32.5 g/dl (31.0-36.0); Mean Corpuscular Hemoglobin 29.1 pg (27.0-33.0); Mean Corpuscular Volume 89.5 fL (80.0-98.0); Mean Platelet Volume 10.9 fL (9.4-12.4); Platelet Count 255 X10*3/uL (160-400); Red Blood Count 5.06 X10*6/uL (4.60-5.80); White Blood Count 6.5 X10*3/uL (4.8-10.8)
[2021-10-05 14:05] LABS: Alanine Aminotransferase 58 U/L (0-40); Albumin Level 4.7 g/dL (3.5-5.0); Alkaline Phosphatase 74 U/L (39-117); Anion Gap 11 (12-20); Aspartate Amino Transferase 27 U/L (5-37); Bilirubin Total 0.4 mg/dL (0.0-1.0); Blood Urea Nitrogen 17 mg/dL (9-16); Calcium 9.4 mg/dL (8.4-10.2); Carbon Dioxide 29 mmol/L (22-29); Chloride 102 mmol/L (96-108); Cholesterol 274 mg/dL; Estimated Glomerular Filt Rate > 60; Glucose Random 146 mg/dL (60-115); HDL Cholesterol 58 mg/dL; Iron 110 mcg/dL (45-160); LDL Cholesterol Calculated 202 mg/dl; Percent Iron Saturation 31 % (15-50); Sodium 137 mmol/L (135-145); Total Iron Binding Capacity 356 mcg/dL (228-428); Total Protein 7.9 g/dL (6.5-8.0); Triglycerides 72 mg/dL; Unsaturated Iron Binding 246 ug/dL
[2021-10-05 15:01] LABS: Ferritin 219 ng/mL (20-250)
== END 2021-10-05 11:21 | disposition home or self-care (01) ==
LOC: HO.WFDLDS 11:20
PROVIDERS: Nurse Practitioner Family; Visit Provider Hospitalist
DX: E78.00 Pure hypercholesterolemia, unspecified (principal); D64.9 Anemia, unspecified; E11.9 Type 2 diabetes mellitus without complications
CPT/HCPCS: 36415; 80053; 80061; 82728; 83540; 85027

== ENCOUNTER 2021-10-13 08:41 | Outpatient (REF) | payer MEDICARE, MEDICAID, SELFPAY ==
--- NOTE | ~2021-10-13 | XR_ITS ---
EXAMINATION: XR LUMBOSACRAL SPINE WITH OBLIQUES CLINICAL INFORMATION: M54.16 - Radiculopathy, lumbar region COMPARISON: Radiographs lumbar spine 10/11/2017; CT abdomen and pelvis 11/26/2020, MR lumbar spine 12/08/2019. TECHNIQUE: Lumbar spine is imaged in 7 views, including lateral flexion-extension views. FINDINGS: Normal lumbar segmentation with 5 nonrib-bearing lumbar vertebrae of normal height and normal lumbar lordosis. No lumbar vertebral compression or destructive process. There is been prior interbody fusion L5-S1. Bridging anterior osteophytes present at T11-T12, and T12-L1. Anterior vertebral spurring mid and lower lumbar spine. No definite interval disc narrowing. No erosive change. There is borderline grade 0-1 spondylolisthesis L4-L5 which is stable between flexion and extension. There is no instability with flexion or extension. No visible spondylolysis. The SI joints and visualized sacrum are unremarkable. XR/XR lumbar spine 6V w bending IMPRESSION: --Prior interbody fusion L5-S1. No vertebral compression, interval disc narrowing, or destructive process. -Borderline grade 0-1 spondylolisthesis L4-L5. No instability with flexion or extension.
== END 2021-10-13 08:42 | disposition home or self-care (01) ==
LOC: HO.XRAY 08:41
PROVIDERS: PCP Hospitalist; Visit Provider Nurse Practitioner Family
DX: M47.816 Spondylosis without myelopathy or radiculopathy, lumbar region (principal); M54.16 Radiculopathy, lumbar region; M96.1 Postlaminectomy syndrome, not elsewhere classified
CPT/HCPCS: 72114; 99212

== ENCOUNTER 2021-10-25 10:50 | Day surgery (SDC) | payer MEDICARE, MEDICAID, SELFPAY ==
[2021-10-25 11:18] VITALS: BMI 28.0
[2021-10-25 11:27] VITALS: BP 128/81; PULSE 81; RESP 17; TEMP 36.5; O2SAT 97
--- NOTE | 2021-10-25 13:12 | MHC.SHP ---
Pre-Procedural Eval Section A Date of Service: 10/25/21 The patient is an INPATIENT: No Changes since office visit: Yes Patient answered all questions Section B Chief Complaint: Radiculopathy, lumbar region Details of Present Illness: as above Relevant Family History (Specify if Yes): No Relevant Social History: None Present Medications: see Short Stay Collaborative assessment Medical History: No relevant PMH History of Previous Operations: No relevant previous surgery Allergies: Allergies Allergy/AdvReac Type Severity Reaction Status Date / Time fentanyl Allergy Intermediate itching Verified 10/13/21 08:30 morphine [Amber] Allergy Intermediate itch Verified 10/13/21 08:30 Iodinated Contrast Media Allergy Mild DIFFICULTY Verified 10/13/21 08:30 [IV Dye, Iodine Containing] BREATHING,VOMITING metformin AdvReac Intermediate stomach Verified 10/13/21 08:30 pain Review of Systems Sugical H&P ROS: Negative: Constitution, Cardiovascular, Respiratory, Neurological, Psychiatric, Hem-Onc, Allergic/Immunologic, Gastrointestinal, Genitourinary, Musculoskeletal, Integumentary, Endocrine and Eyes/Ears/Nose/Throat Exam Surgical H&P Exam: Normal: HEENT, Normal: Heart, Normal: Lungs, Normal: Extremities, Normal: Abdomen, Normal: Skin and Normal: Neurological Plan Diagnosis/Plan: Unchanged I have reviewed the history and physical and performed a pertinent physical examination on my patient. No changes have occurred unless specified.
--- NOTE | 2021-10-25 13:44 | P.BOP_ITS ---
Brief Operative Note Date of Service: 10/25/21 Pre-op diagnosis: postlaminectomy syndrome Post-op diagnosis: same Procedure: none, the patient went to the OR his lower back was prepped and draped all meds were drawn but he refused to continue with the procedure. No injections were made.He will be discharged. Implants: none Surgeon: Anastacio Tam MD Anesthesia: local Was an Lead Infrastructure Architect used for this Procedure?: No Estimated blood loss (mL): 0
== END 2021-10-25 12:45 | disposition home or self-care (01) ==
PROVIDERS: PCP Hospitalist; Visit Provider Anesthesiology
PROC: 3E0R3GC Introduction of Other Therapeutic Substance into Spinal Canal, Percutaneous Approach (ICD-10-PCS; CPT 62322; principal; 2021-10-25 13:00)
DX: M54.16 Radiculopathy, lumbar region (principal); Z53.20 Procedure and treatment not carried out because of patient's decision for unspecified reasons; M96.1 Postlaminectomy syndrome, not elsewhere classified; G89.4 Chronic pain syndrome; M48.061 Spinal stenosis, lumbar region without neurogenic claudication; Z88.8 Allergy status to other drugs, medicaments and biological substances; Z91.041 Radiographic dye allergy status; M47.816 Spondylosis without myelopathy or radiculopathy, lumbar region
CPT/HCPCS: 62323; J2795; J3300

== ENCOUNTER → 2021-11-15 08:00 | Outpatient (BNVA) | payer MEDICARE, MEDICAID, SELFPAY | PROVIDERS: PCP Hospitalist; Visit Provider Nurse Practitioner Family | DX: Z51.81 Encounter for therapeutic drug level monitoring (principal); F11.20 Opioid dependence, uncomplicated; M96.1 Postlaminectomy syndrome, not elsewhere classified; M48.061 Spinal stenosis, lumbar region without neurogenic claudication; M54.16 Radiculopathy, lumbar region | CPT/HCPCS: 99212 ==

== ENCOUNTER → 2021-12-20 08:27 | Outpatient (BNVA) | payer OTHER, SELFPAY | PROVIDERS: PCP Hospitalist; Visit Provider Nurse Practitioner Family | DX: G89.4 Chronic pain syndrome (principal); M54.16 Radiculopathy, lumbar region; M96.1 Postlaminectomy syndrome, not elsewhere classified; M48.061 Spinal stenosis, lumbar region without neurogenic claudication; M19.90 Unspecified osteoarthritis, unspecified site; Z79.891 Long term (current) use of opiate analgesic | CPT/HCPCS: 99212 ==

== ENCOUNTER → 2022-01-23 08:01 | Outpatient (BNVA) | payer OTHER, SELFPAY | PROVIDERS: PCP Hospitalist; Visit Provider Nurse Practitioner Family | DX: Z51.81 Encounter for therapeutic drug level monitoring (principal); F11.20 Opioid dependence, uncomplicated; M96.1 Postlaminectomy syndrome, not elsewhere classified; M54.16 Radiculopathy, lumbar region; M48.061 Spinal stenosis, lumbar region without neurogenic claudication; M47.816 Spondylosis without myelopathy or radiculopathy, lumbar region; G89.4 Chronic pain syndrome | CPT/HCPCS: 99212 ==

== ENCOUNTER → 2022-02-20 08:55 | Outpatient (BNVA) | payer MEDICARE, MEDICAID, SELFPAY | PROVIDERS: PCP Hospitalist; Visit Provider Nurse Practitioner Family | DX: Z51.81 Encounter for therapeutic drug level monitoring (principal); F11.20 Opioid dependence, uncomplicated | CPT/HCPCS: 99211 ==

== ENCOUNTER 2022-02-24 09:31 | Outpatient (REF) | payer MEDICARE, MEDICAID, SELFPAY ==
--- NOTE | ~2022-02-24 | US_ITS ---
EXAMINATION: US ABDOMEN LIMITED CLINICAL INFORMATION: Nonalcoholic steatohepatitis. COMPARISON: CT abdomen and pelvis 11/26/2020. X-ray KUB 09/20/2018 and 06/20/2014. Renal ultrasound 11/16/2013. TECHNIQUE: Real-time imaging of the right upper quadrant abdominal viscera. FINDINGS: PANCREAS: The pancreas appears unremarkable, without masses or ductal dilatation, with the exception of the tail which is obscured by bowel gas. LIVER: Liver is enlarged at 19.1 cm and demonstrates increased echogenicity consistent with hepatic steatosis. Similar findings were seen on the prior CT from 11/26/2020. The liver contour is normal. No focal hepatic lesion. There is no intrahepatic biliary duct dilatation seen. GALLBLADDER: Surgically absent. COMMON BILE DUCT: Normal in caliber measuring 0.4 cm in diameter. RIGHT KIDNEY: Normal. No hydronephrosis. No renal calculi or focal parenchymal lesions. The kidney measures 11.9 cm in maximum dimension. FREE FLUID: None. US/US abdomen limited IMPRESSION: Enlarged fatty liver.
== END 2022-02-24 09:32 | disposition home or self-care (01) ==
LOC: HO.US 09:31
PROVIDERS: Visit Provider Nurse Practitioner
DX: K75.81 Nonalcoholic steatohepatitis (NASH) (principal)
CPT/HCPCS: 76705

== ENCOUNTER → 2022-02-28 08:05 | Outpatient (BNVA) | payer MEDICARE, MEDICAID, SELFPAY | PROVIDERS: PCP Hospitalist; Visit Provider Nurse Practitioner | DX: K75.81 Nonalcoholic steatohepatitis (NASH) (principal); K58.0 Irritable bowel syndrome with diarrhea; K21.00 Gastro-esophageal reflux disease with esophagitis, without bleeding; Z90.49 Acquired absence of other specified parts of digestive tract | CPT/HCPCS: 99212 ==

== ENCOUNTER 2022-03-29 11:52 | Outpatient (REF) | payer OTHER, MEDICAID, SELFPAY ==
[2022-03-29 12:13] LABS: Hematocrit 45.2 % (42.0-52.0); Hemoglobin 14.8 g/dl (14.0-18.0); Mean Corpuscular HGB Conc 32.7 g/dl (31.0-36.0); Mean Corpuscular Hemoglobin 28.8 pg (27.0-33.0); Mean Corpuscular Volume 88.1 fL (80.0-98.0); Mean Platelet Volume 10.3 fL (9.4-12.4); Platelet Count 220 X10*3/uL (160-400); Red Blood Count 5.13 X10*6/uL (4.60-5.80); Red Cell Distribution Width 12.4 % (11.0-16.0); White Blood Count 5.9 X10*3/uL (4.8-10.8)
[2022-03-29 13:25] LABS: Alanine Aminotransferase 59 U/L (0-40); Albumin Level 4.7 g/dL (3.5-5.0); Alkaline Phosphatase 75 U/L (39-117); Aspartate Amino Transferase 32 U/L (5-37); Bilirubin Direct < 0.2 mg/dL (0.0-0.5); Bilirubin Total 0.4 mg/dL (0.0-1.0); Cholesterol 275 mg/dL; Gamma Glutamyl Transpeptidase 45 U/L (11-51); HDL Cholesterol 47 mg/dL; LDL Cholesterol Calculated 171 mg/dl; Magnesium 2.3 mg/dL (1.6-2.6); Total Protein 7.9 g/dL (6.5-8.0); Triglycerides 286 mg/dL
[2022-03-31 13:48] LABS: Alpha Fetoprotein 1.2 ng/mL (<6.1)
== END 2022-03-29 11:53 | disposition home or self-care (01) ==
LOC: HO.LAB 11:52
PROVIDERS: Absent Provider Hospitalist; PCP Hospitalist; Visit Provider Nurse Practitioner
DX: K75.81 Nonalcoholic steatohepatitis (NASH) (principal); K21.9 Gastro-esophageal reflux disease without esophagitis; K44.9 Diaphragmatic hernia without obstruction or gangrene; D50.9 Iron deficiency anemia, unspecified; E78.00 Pure hypercholesterolemia, unspecified
CPT/HCPCS: 36415; 80061; 80076; 82105; 82977; 83735; 84100; 85027

== ENCOUNTER → 2022-03-31 08:05 | Outpatient (BNVA) | payer OTHER, MEDICAID, SELFPAY | PROVIDERS: PCP Hospitalist; Visit Provider Nurse Practitioner Family | DX: M54.16 Radiculopathy, lumbar region (principal); M48.061 Spinal stenosis, lumbar region without neurogenic claudication; M47.816 Spondylosis without myelopathy or radiculopathy, lumbar region; Z79.899 Other long term (current) drug therapy | CPT/HCPCS: 99212 ==

== ENCOUNTER → 2022-04-28 08:05 | Outpatient (BNVA) | payer OTHER, MEDICAID, SELFPAY | PROVIDERS: PCP Hospitalist; Visit Provider Nurse Practitioner Family | DX: M17.12 Unilateral primary osteoarthritis, left knee (principal); M25.562 Pain in left knee; M48.061 Spinal stenosis, lumbar region without neurogenic claudication; M96.1 Postlaminectomy syndrome, not elsewhere classified; N52.9 Male erectile dysfunction, unspecified; Z79.891 Long term (current) use of opiate analgesic | CPT/HCPCS: 99212 ==

== ENCOUNTER → 2022-05-01 13:43 | Outpatient (BNVA) | payer OTHER, MEDICAID, SELFPAY | PROVIDERS: PCP Hospitalist; Visit Provider Urology | DX: Z12.5 Encounter for screening for malignant neoplasm of prostate (principal); Z13.9 Encounter for screening, unspecified; N52.9 Male erectile dysfunction, unspecified; N40.0 Benign prostatic hyperplasia without lower urinary tract symptoms; N20.0 Calculus of kidney | CPT/HCPCS: 51798; 99202 ==

== ENCOUNTER 2022-05-12 06:28 | Outpatient (REF) | payer OTHER, SELFPAY ==
--- NOTE | ~2022-05-12 | XR_ITS ---
EXAMINATION: XR KNEE, LEFT CLINICAL INFORMATION: Pain. COMPARISON: Radiographs dated 10/22/2014. TECHNIQUE: AP, lateral and sunrise views of the left knee. FINDINGS: Bony alignment and mineralization are normal. The lateral and medial joint space compartments are well-maintained. There is mild narrowing of the patellofemoral compartment, particularly laterally. There are small peripheral osteophytes at the lower and lateral articular margins of the patella. No fracture or dislocation is seen. There is a small to moderate joint effusion. No foreign body is seen. There are atherosclerotic calcifications. XR/XR knee LT 3V IMPRESSION: 1. There is mild osteoarthritic change of the left patellofemoral compartment. 2. No fracture or dislocation is seen. 3. There is a small to moderate left knee joint effusion.
[2022-05-19 18:44] LABS: Testosterone, Free 42.4 pg/mL (35.0-155.0); Testosterone, Total 254 ng/dL (250-1100)
== END 2022-05-12 06:29 | disposition home or self-care (01) ==
LOC: HO.LAB 06:28
PROVIDERS: Absent Provider Nurse Practitioner Family; PCP Hospitalist; Visit Provider Urology
DX: N52.9 Male erectile dysfunction, unspecified (principal); M25.562 Pain in left knee; Z12.5 Encounter for screening for malignant neoplasm of prostate
CPT/HCPCS: 36415; 73562; 84153; 84402; 84403

== ENCOUNTER 2022-05-15 08:34 | Outpatient (REF) | payer OTHER, SELFPAY ==
--- NOTE | ~2022-05-15 | XR_ITS ---
EXAMINATION: XR KNEE, BILATERAL CLINICAL INFORMATION: Pain in bilateral knee. COMPARISON: None TECHNIQUE: AP bilateral standing view of the knees was obtained. FINDINGS: Medial and lateral compartment joint space is maintained normal. There is no loose bodies or bony erosive changes. The soft tissues are normal. XR/XR knee standing BI IMPRESSION: Unremarkable bilateral AP knee standing exam.
== END 2022-05-15 08:35 | disposition home or self-care (01) ==
LOC: HO.HOSX 08:34
PROVIDERS: Visit Provider Orthopaedic Surgery
DX: M17.12 Unilateral primary osteoarthritis, left knee (principal); G89.4 Chronic pain syndrome; M54.16 Radiculopathy, lumbar region; E11.9 Type 2 diabetes mellitus without complications
CPT/HCPCS: 73565; 99212

== ENCOUNTER → 2022-05-26 08:00 | Outpatient (BNVA) | payer OTHER, SELFPAY | PROVIDERS: PCP Hospitalist; Visit Provider Nurse Practitioner Family | DX: Z51.81 Encounter for therapeutic drug level monitoring (principal); M25.562 Pain in left knee; M17.12 Unilateral primary osteoarthritis, left knee; M25.50 Pain in unspecified joint; M96.1 Postlaminectomy syndrome, not elsewhere classified; M47.816 Spondylosis without myelopathy or radiculopathy, lumbar region; G89.4 Chronic pain syndrome; Z79.891 Long term (current) use of opiate analgesic | CPT/HCPCS: 99212 ==

== ENCOUNTER 2022-06-09 08:39 | Outpatient (REF) | payer OTHER, SELFPAY ==
--- NOTE | ~2022-06-09 | US_ITS ---
EXAMINATION: US RETROPERITONEAL LIMITED (RENAL ONLY) CLINICAL INFORMATION: Calculus of kidney. COMPARISON: Ultrasound abdomen limited 02/24/2022. CT abdomen and pelvis 11/26/2020. X-ray KUB 09/20/2018 and 06/20/2014. Renal ultrasound 11/16/2013. TECHNIQUE: Real-time imaging of the kidneys. FINDINGS: RIGHT KIDNEY: 12.4 x 4.9 x 6.5 cm (SAG x AP x TRV). The kidney is normal in size, contour, and echogenicity. Renal cortical thickness is normal. No calculi or focal parenchymal lesions. No hydronephrosis. LEFT KIDNEY: 12.0 x 7.1 x 6.2 cm (SAG x AP x TRV). The kidney is normal in size, contour, and echogenicity. Renal cortical thickness is normal. No calculi or focal parenchymal lesions. No hydronephrosis. US/US renal BI IMPRESSION: No hydronephrosis or nephrolithiasis.
== END 2022-06-09 08:40 | disposition home or self-care (01) ==
LOC: HO.US 08:39
PROVIDERS: PCP Hospitalist; Visit Provider Urology
DX: N20.0 Calculus of kidney (principal)
CPT/HCPCS: 76775

== ENCOUNTER → 2022-06-23 08:00 | Outpatient (BNVA) | payer OTHER, SELFPAY | PROVIDERS: PCP Hospitalist; Visit Provider Nurse Practitioner Family ==

== ENCOUNTER → 2022-06-27 08:35 | Outpatient (BNVA) | payer OTHER, SELFPAY | PROVIDERS: PCP Hospitalist; Visit Provider Student in an Organized Health Care Education/Training Program | DX: M77.12 Lateral epicondylitis, left elbow (principal); M17.12 Unilateral primary osteoarthritis, left knee; M19.041 Primary osteoarthritis, right hand; M19.042 Primary osteoarthritis, left hand | CPT/HCPCS: 99202 ==

== ENCOUNTER → 2022-07-27 08:24 | Outpatient (BNVA) | payer OTHER, SELFPAY | PROVIDERS: PCP Hospitalist; Visit Provider Nurse Practitioner Family | DX: Z51.81 Encounter for therapeutic drug level monitoring (principal); F11.20 Opioid dependence, uncomplicated; M17.12 Unilateral primary osteoarthritis, left knee; M96.1 Postlaminectomy syndrome, not elsewhere classified; M47.816 Spondylosis without myelopathy or radiculopathy, lumbar region; M19.041 Primary osteoarthritis, right hand; M19.042 Primary osteoarthritis, left hand; G89.4 Chronic pain syndrome; Z79.891 Long term (current) use of opiate analgesic | CPT/HCPCS: 99212 ==

== ENCOUNTER 2022-08-20 19:17 | Emergency (ER) | payer OTHER, SELFPAY ==
--- NOTE | ~2022-08-20 | CT_ITS ---
EXAMINATION: CT HEAD WITHOUT CONTRAST CLINICAL INFORMATION: Headache COMPARISON: Portions of a previous head CT 08/03/15 TECHNIQUE: Multidetector CT examination of the head is performed without contrast. This CT examination was performed using dose optimization techniques as appropriate, variously including the following: *Automated exposure control *Adjustment of mA and/or kV according to patient size (this includes techniques or standardized protocols for targeted exams where dose is matched to indication/reason for exam; i.e. extremities or head) *Use of iterative reconstruction technique DLP: 753 mGy-cm FINDINGS: There is no evidence of a recent intracranial hemorrhage or extra-axial collection. The midline structures are nondisplaced. The ventricles, cisterns, and sulci are within normal limits. There is no evidence of an intra-axial mass. There are no suspicious focal areas of abnormal brain attenuation. The gonzalez-white interface is within normal limits. There is no evidence of acute territorial infarct. The paranasal sinuses and mastoids are within normal limits. CT/CT head/brain wo IV con IMPRESSION: 1. There is no evidence of a recent intracranial hemorrhage. 2. No acute infarct. 3. No etiology for headache demonstrated on this non-IV enhanced exam
[2022-08-20 19:39] VITALS: BP 143/77; PULSE 79; RESP 18; TEMP 36.2; O2SAT 97; BMI 29.4
--- NOTE | 2022-08-20 19:42 | ED.GENADULT ---
HPI - General Adult General Chief complaint: Headache Stated complaint: headache Time Seen by Provider: 08/20/22 23:20 History of Present Illness HPI narrative: 61-year-old male came in for evaluation of headache started 2 days ago. For about 2 days patient been having pressure in your head on his face, that get good relief using Tylenol, no fever, no chills, no nasal discharge. No sick contacts. Patient declined photophobia, no temporal tenderness, no nausea, no vomiting, no neck stiffness. Related Data Previous Rx's Medication Instructions Recorded naloxone 4 mg/actuation nasal 1 spray intranasal Q2M #1 ea 01/20/20 spray (Narcan) blood sugar diagnostic (FreeStyle #50 ea 06/06/21 Lite Strips) blood-glucose meter (FreeStyle #1 ea 06/06/21 Lite Meter kit) lancets 28 gauge (FreeStyle #100 ea 06/06/21 Lancets) acetaminophen 650 mg 650 mg PO Q8H PRN pain 30 days #90 12/20/21 tablet,extended release (Tylenol tabs Arthritis Pain) Lactobacillus rhamnosus GG 10 1 cap PO DAILY #30 caps 03/07/22 billion cell capsule (Culturelle) diclofenac potassium 50 mg tablet 50 mg PO BID PRN pain 2 weeks #28 03/31/22 tabs diclofenac sodium 1 % topical gel 4 g topical TID-QID pain #180 grams 03/31/22 (Voltaren Arthritis Pain) paroxetine HCl 20 mg tablet (Paxil) 20 mg PO DAILY #30 tabs 05/02/22 sildenafil 50 mg tablet (Viagra) 50 mg PO DAILY PRN sexual activity 05/02/22 #30 tabs ferrous sulfate 325 mg (65 mg 325 mg PO DAILY #90 tabs 05/04/22 iron) tablet (FeroSul) linagliptin 5 mg tablet (Tradjenta) 5 mg PO DAILY #90 tabs 05/04/22 gabapentin 300 mg capsule 300 mg PO BID pain 90 days #180 05/26/22 caps coenzyme Q10 30 mg capsule (Co 30 mg PO DAILY #90 caps 06/02/22 Q-10) fenofibrate 54 mg tablet 54 mg PO DAILY #90 tabs 06/02/22 lidocaine 5 % topical patch See Rx Instructions topical 06/27/22 (Lidoderm) .COMPLEX #30 ea Saccharomyces boulardii 250 mg 250 mg PO BID #30 caps 07/07/22 capsule (Digest Probiotic (S.boulardii)) metronidazole 500 mg tablet 500 mg PO TID 10 days #30 tabs 07/07/22 omeprazole 40 mg capsule,delayed 40 mg PO DAILY 30 days #30 caps 07/21/22 release methadone 5 mg tablet 5 mg PO BID pain 30 days #60 tabs 07/27/22 amoxicillin 875 mg-potassium 1 tab PO BID #14 tabs 08/20/22 clavulanate 125 mg tablet Allergies Allergy/AdvReac Type Severity Reaction Status Date / Time fentanyl Allergy Intermediate itching Verified 07/27/22 08:32 morphine [Amber] Allergy Intermediate itch Verified 07/27/22 08:32 Iodinated Contrast Media Allergy Mild DIFFICULTY Verified 07/27/22 08:32 [IV Dye, Iodine Containing] BREATHING,VOMITING metformin AdvReac Intermediate stomach Verified 07/27/22 08:32 pain Review of Systems Review of Systems: All other systems are reviewed and are negative Constitutional: Reports as per HPI and Reports no additional constitutional complaints Eyes: Reports as per HPI and Reports no additional eye complaints Reports system reviewed and no additional complaints, except as documented Cardiovascular: Reports as per HPI and Reports no additional cardiovascular complaints Respiratory: Reports as per HPI and Reports no additional respiratory complaints Gastrointestinal: Reports as per HPI and Reports no additional gastrointestinal complaints Genitourinary: Reports no additional female genitourinary complaints Musculoskeletal: Reports no additional musculoskeletal complaints Skin/Breast: Reports system reviewed and no additional complaints, except as docu Psychiatric: Reports no additional psychiatric complaints Endocrine: Reports no additional endocrine complaints Hematologic/Lymphatic: Reports no additional hematologic/lymphatic complaints Allergic/Immunologic: Reports no additional allergic/immunologic complaints Reports system reviewed and no additional complaints, except as documented and Reports Abnormal speech present [facility] Past Medical History Medical History Arthritis Cervical radiculopathy Diabetes DMII (diabetes mellitus, type 2) Elevated liver transaminase level High cholesterol Lumbar post-laminectomy syndrome Lumbar radiculopathy, chronic Lumbar spinal stenosis Narcotic drug use Surgical History H/O colonoscopy History of cholecystectomy History of elbow surgery History of lumbar fusion Family History Family History Father Liver problem Alcoholism Substance use disorder Mother No problems noted. Brother CAD (coronary artery disease) Social History Social History Household Members: Family Housing: House Do you presently have visiting nurse or other home services: No Alcohol intake: never Patient Tobacco Use Status: Never used Tobacco Smoked in Last 30 Days: No e-Cigarette/Vaping Use: Never Used Second Hand Smoke Exposure: No Use of substances other than those prescribed or required for medical reasons: No Advance Directives: No Advance Directives Information Provided: No service: No Current occupational status: employed and disabled Current occupational exposures/hazards: No Cognitive needs: Yes (cane) Hearing needs: No Vision needs: Yes (reading glasses) Physical Exam ED Vital Signs: Vital Signs - 24 hr 08/20/22 19:39 08/20/22 23:35 Temperature 97.2 F 98.0 F Pulse Rate 79 74 Respiratory Rate 18 14 Blood Pressure 143/77 H 137/78 Pulse Oximetry 97 95 Oxygen Delivery Method Room Air Room Air BMI result Body Mass Index 29.4 Vital signs have been reviewed as appeared to be correct. Blood pressure normal. Heart rate normal. Respiration rate normal. Temperature normal. Oxygen saturation normal. Appearance: Alert. Oriented X3. No acute distress. Head: Normal external exam. Normocephalic. Atraumatic. No Lester signs noted. No raccoon eyes noted Eyes: PERRLA. EOMI. Conjunctiva and sclera normal. Eyelids normal. ENT: TM's Normal. Pharynx normal. Uvula midline. Moist mucous membranes. No nasal discharge, left maxillary sinus tenderness with percussion. Neck: Normal inspection. Neck supple. FROM. No adenopathy. Thyroid Normal. No meningeal signs. No neck mass noted. CVS: Normal heart rate and rhythm. Heart sound normal. No murmurs noted. Pulses normal throughout. Respiratory: No respiratory distress. Painless inspiration. Breath sounds normal. No wheezes/rales/rhonchi noted. Chest nontender. No accessory muscle usage noted or decreased air movement noted. Abdomen: Soft and nontender. Bowel sounds normal in all 4 quadrants. No distention noted. No organomegaly noted. No visible injury noted. Back: No CVA tenderness. Full range of motion noted. Skin: Skin warm and dry. Normal skin color. Normal skin turgor. No rashes/lesions/lacerations noted. Extremities: No lower extremity edema. Extremities exhibit normal range of motion. Extremities nontender. Neuro: Oriented X 3. Cranial nerve exam: II-XII are grossly intact No motor deficit. No sensory deficit. Reflexes normal. Course Course Course Narrative: RME: Headache and nausea with pmh of DM, and HTN. patient states no neuro deficits. new headache. patient states no recent head trauma or neck stiffness. labs, EKG, and head CT odered Reevaluation(s) Reevaluation #1: Left maxillary sinusitis will start the patient on Augmentin, patient get good relief using Tylenol was recommended to use Tylenol if needed for headache. Medications Administered Discontinued Medications Generic Name Dose Route Start Last Admin Trade Name Freq PRN Reason Stop Dose Admin Amoxicillin/Clavulanate Potassium 875 mg 08/20/22 23:31 08/20/22 23:41 Amoxicillin/Potassium Clav 875 Mg Tablet PO 08/20/22 23:32 875 mg ONCE ONE Administration Medical Decision Making Differential Diagnosis Differential Diagnoses: The differential diagnosis associated with the presentation includes (Acute sinusitis, intracranial bleed, meningitis, electrolyte abnormalities, severe anemia.) Admission/Observation Consideration of admission/observation: Escalation of care including admission/observation considered Lab Data MDM Lab Attestation statement: I reviewed the patient's lab results. 08/20/22 20:08 08/20/22 20:08 Labs: Lab Results 08/20/22 08/20/22 08/20/22 Range/Units 20:08 20:08 20:08 WBC 4.8 (4.8-10.8) X10*3/uL RBC 4.38 L (4.60-5.80) X10*6/uL Hgb 12.6 L (14.0-18.0) g/dl Hct 38.7 L (42.0-52.0) % MCV 88.4 (80.0-98.0) fL MCH 28.8 (27.0-33.0) pg MCHC 32.6 (31.0-36.0) g/dl RDW 12.8 (11.0-16.0) % Plt Count 163 D (160-400) X10*3/uL MPV 10.2 (9.4-12.4) fL Immature Gran % (Auto) 0.2 (0.0-0.4) % Neut % (Auto) 52.1 (45-73) % Lymph % (Auto) 30.0 (20-40) % [place] % (Auto) 14.0 H (2-11) % Eos % (Auto) 3.1 (0-4) % Baso % (Auto) 0.6 (0-2) % Lymph # (Auto) 1.5 (1.2-4.9) X10*3/uL [place] # (Auto) 0.7 (0.1-1.2) X10*3/uL Eos # (Auto) 0.2 (0.0-0.4) X10*3/uL Baso # (Auto) 0.0 (0.0-0.2) X10*3/uL Abs Immat Gran (auto) 0.01 (0.00-0.03) X10*3/uL Absolute Neuts (auto) 2.5 (2.0-8.3) x10*3/uL Absolute Nucleated RBC 0.000 (0.0-0.012) X10*3/uL Nucleated RBC % (auto) 0.0 (0.0-0.2) /100WBC PT (10.0-13.1) SEC INR (0.9-1.1) APTT (26.0-36.4) SEC Sodium 143 (135-145) mmol/L Potassium 3.8 D (3.3-5.1) mmol/L Chloride 107 (96-108) mmol/L Carbon Dioxide 30 H (22-29) mmol/L Anion Gap 10 L (12-20) BUN 15 (9-16) mg/dL Creatinine 0.84 (0.5-1.4) mg/dL Estim Creat Clear Calc 121.7 Estimated GFR > 60 Random Glucose 108 (60-115) mg/dL Calcium 8.7 D (8.4-10.2) mg/dL Total Bilirubin 0.5 (0.0-1.0) mg/dL AST 27 (5-37) U/L ALT 42 H (0-40) U/L Alkaline Phosphatase 67 (39-117) U/L Troponin I High Sens < 2.7 (<3.5-35.0) ng/L Total Protein 6.7 (6.5-8.0) g/dL Albumin 4.0 (3.5-5.0) g/dL 08/20/22 Range/Units 20:13 WBC (4.8-10.8) X10*3/uL RBC (4.60-5.80) X10*6/uL Hgb (14.0-18.0) g/dl Hct (42.0-52.0) % MCV (80.0-98.0) fL MCH (27.0-33.0) pg MCHC (31.0-36.0) g/dl RDW (11.0-16.0) % Plt Count (160-400) X10*3/uL MPV (9.4-12.4) fL Immature Gran % (Auto) (0.0-0.4) % Neut % (Auto) (45-73) % Lymph % (Auto) (20-40) % [place] % (Auto) (2-11) % Eos % (Auto) (0-4) % Baso % (Auto) (0-2) % Lymph # (Auto) (1.2-4.9) X10*3/uL [place] # (Auto) (0.1-1.2) X10*3/uL Eos # (Auto) (0.0-0.4) X10*3/uL Baso # (Auto) (0.0-0.2) X10*3/uL Abs Immat Gran (auto) (0.00-0.03) X10*3/uL Absolute Neuts (auto) (2.0-8.3) x10*3/uL Absolute Nucleated RBC (0.0-0.012) X10*3/uL Nucleated RBC % (auto) (0.0-0.2) /100WBC PT 10.2 (10.0-13.1) SEC INR 0.9 (0.9-1.1) APTT 26.8 (26.0-36.4) SEC Sodium (135-145) mmol/L Potassium (3.3-5.1) mmol/L Chloride (96-108) mmol/L Carbon Dioxide (22-29) mmol/L Anion Gap (12-20) BUN (9-16) mg/dL Creatinine (0.5-1.4) mg/dL Estim Creat Clear Calc Estimated GFR Random Glucose (60-115) mg/dL Calcium (8.4-10.2) mg/dL Total Bilirubin (0.0-1.0) mg/dL AST (5-37) U/L ALT (0-40) U/L Alkaline Phosphatase (39-117) U/L Troponin I High Sens (<3.5-35.0) ng/L Total Protein (6.5-8.0) g/dL Albumin (3.5-5.0) g/dL Independent Interpretation I performed an independent interpretation of an: CT Scan (Head CT: No acute intracranial pathology.) Radiology Impression Discussion of test interpretation with radiology: I have reviewed the radiologist's reading. Discharge Plan Discharge Clinical Impression: Left maxillary sinusitis Patient Disposition: Home, Self-Care Instructions: Sinusitis (ED) Prescriptions: New amoxicillin-pot clavulanate 875-125 mg tablet 1 tab PO BID Qty: 14 0RF No Action Culturelle 10 billion cell capsule 1 cap PO DAILY Qty: 30 6RF ferrous sulfate [FeroSul] 325 mg (65 mg iron) tablet 325 mg PO DAILY Qty: 90 2RF Tradjenta 5 mg tablet 5 mg PO DAILY Qty: 90 3RF Saccharomyces boulardii [Digest Probiotic (S.boulardii)] 250 mg capsule 250 mg PO BID Qty: 30 6RF metronidazole 500 mg tablet 500 mg PO TID 10 Days Qty: 30 0RF omeprazole 40 mg capsule,delayed release(DR/EC) 40 mg PO DAILY 30 Days Qty: 30 6RF (DME) blood-glucose meter [FreeStyle Lite Meter] Kit See Rx Instructions .ROUTE .MEDSUPPLY Qty: 1 0RF Rx Instructions: check blood sugars daily and pern (DME) FreeStyle Lite Strips Strip See Rx Instructions .ROUTE .MEDSUPPLY Qty: 50 8RF Rx Instructions: As directed (DME) lancets [FreeStyle Lancets] 28 gauge misc See Rx Instructions .ROUTE .MEDSUPPLY Qty: 100 4RF Rx Instructions: As directed coenzyme Q10 [Co Q-10] 30 mg capsule 30 mg PO DAILY Qty: 90 3RF fenofibrate 54 mg tablet 54 mg PO DAILY Qty: 90 3RF Narcan 4 mg/actuation spray,non-aerosol 1 spray intranasal Q2M Qty: 1 0RF Rx Instructions: spray 1 dose into ONE nostril; alternate nostrils w each dose until help arrives acetaminophen [Tylenol Arthritis Pain] 650 mg tablet extended release 650 mg PO Q8H PRN (Reason: pain) 30 Days Qty: 90 0RF lidocaine [Lidoderm] 5 % adhesive patch,medicated See Rx Instructions topical .COMPLEX Qty: 30 2RF Rx Instructions: leave on most painful area for up to 12 hrs topical paroxetine HCl [Paxil] 20 mg tablet 20 mg PO DAILY Qty: 30 1RF sildenafil [Viagra] 50 mg tablet 50 mg PO DAILY PRN (Reason: sexual activity) Qty: 30 0RF Rx Instructions: administer 30 minutes to 4 hours before activity, take 1/2 tab to one tab 30 minutes prior to intercourse [facility] [id number] diclofenac potassium 50 mg tablet 50 mg PO BID PRN (Reason: pain) 14 Days Qty: 28 0RF Rx Instructions: Take it with food. Avoid other NSAIDs while taking this. diclofenac sodium [Voltaren Arthritis Pain] 1 % gel 4 g topical TID-QID Qty: 180 2RF Rx Instructions: Apply 1-3 grams (pumps) to the affected area 3-4 times daily. gabapentin 300 mg capsule 300 mg PO BID 90 Days Qty: 180 6RF methadone 5 mg tablet 5 mg PO BID 30 Days Qty: 60 0RF Referrals: Isela Bernstein NP [Primary Care Provider] - Interventions: ED Discharge Assessment Last Done: 08/20/22 23:46 Discharge Date/Time: 08/20/22 23:47
--- NOTE | 2022-08-20 19:44 | ECG_ITS ---
Test Reason : HEADACHE, NAUSEA Blood Pressure : / mmHG Vent. Rate : 074 BPM Atrial Rate : 074 BPM P-R Int : 154 ms QRS Dur : 118 ms QT Int : 372 ms P-R-T Axes : 051 -49 046 degrees QTc Int : 412 ms Normal sinus rhythm Left anterior fascicular block Left ventricular hypertrophy with QRS widening ( R in aVL , Raymundo product ) Abnormal ECG When compared with ECG of 25-MAR-2021 09:53, Vent. rate has decreased BY 55 BPM Incomplete right bundle branch block is no longer Present Minimal criteria for Septal infarct are no longer Present Referred By: Wade Garcia Electronically Signed By:Jamie Crowder
[2022-08-20 20:18] LABS: MANUAL DIFF FLAG NO
[2022-08-20 20:21] LABS: Basophils Percent Auto 0.6 % (0-2); Eosinophils Absolute Auto 0.2 X10*3/uL (0.0-0.4); Eosinophils Percent Auto 3.1 % (0-4); Hematocrit 38.7 % (42.0-52.0); Hemoglobin 12.6 g/dl (14.0-18.0); Imm Gran Abs Auto 0.01 X10*3/uL (0.00-0.03); Imm Gran Pct Auto 0.2 % (0.0-0.4); Lymphocytes Absolute Auto 1.5 X10*3/uL (1.2-4.9); Mean Corpuscular HGB Conc 32.6 g/dl (31.0-36.0); Mean Corpuscular Hemoglobin 28.8 pg (27.0-33.0); Mean Corpuscular Volume 88.4 fL (80.0-98.0); Mean Platelet Volume 10.2 fL (9.4-12.4); Monocytes Absolute Auto 0.7 X10*3/uL (0.1-1.2); Neutrophils Absolute Auto 2.5 x10*3/uL (2.0-8.3); Neutrophils Percent Auto 52.1 % (45-73); Platelet Count 163 X10*3/uL (160-400); Red Blood Count 4.38 X10*6/uL (4.60-5.80); Red Cell Distribution Width 12.8 % (11.0-16.0); White Blood Count 4.8 X10*3/uL (4.8-10.8)
[2022-08-20 20:36] LABS: Alanine Aminotransferase 42 U/L (0-40); Alkaline Phosphatase 67 U/L (39-117); Anion Gap 10 (12-20); Aspartate Amino Transferase 27 U/L (5-37); Bilirubin Total 0.5 mg/dL (0.0-1.0); Blood Urea Nitrogen 15 mg/dL (9-16); Calcium 8.7 mg/dL (8.4-10.2); Carbon Dioxide 30 mmol/L (22-29); Chloride 107 mmol/L (96-108); Creatinine Clr Calc Pharmacy 121.7; Estimated Glomerular Filt Rate > 60; Glucose Random 108 mg/dL (60-115); Potassium 3.8 mmol/L (3.3-5.1); Sodium 143 mmol/L (135-145); Total Protein 6.7 g/dL (6.5-8.0)
[2022-08-20 20:41] LABS: INTERNATIONAL NORM RATIO 0.9 (0.9-1.1); Prothrombin Time 10.2 SEC (10.0-13.1)
[2022-08-20 20:43] LABS: Partial Thromboplastin Time 26.8 SEC (26.0-36.4)
[2022-08-20 20:49] LABS: Troponin-I High Sensitivity < 2.7 ng/L (<3.5-35.0)
[2022-08-20 23:35] VITALS: BP 137/78; PULSE 74; RESP 14; TEMP 36.7; O2SAT 95
--- NOTE | 2022-08-20 23:36 | PC.NURSE ---
Pt ca&ox3, no signs of distress. Pt denies chest pain and sob. vitals stable. Will continue to monitor.
[2022-08-20] MEDS: Amoxicillin/Potassium Clav 875 MG TABLET PO (23:41)
--- NOTE | 2022-08-20 23:42 | PC.NURSE ---
Pt medicated per mar. No signs of distress. Will continue to monitor.
== END 2022-08-20 23:47 | disposition home or self-care (01) ==
PROVIDERS: Physician Assistant; Emergency Provider Emergency Medicine; PCP Hospitalist
DX: J32.0 Chronic maxillary sinusitis (principal); R51.9 Headache, unspecified; R94.31 Abnormal electrocardiogram [ECG] [EKG]; R11.2 Nausea with vomiting, unspecified; Z79.899 Other long term (current) drug therapy
CPT/HCPCS: 36415; 70450; 80053; 84484; 85025; 85610; 85730; 93005; 99284; 99285

== ENCOUNTER → 2022-08-24 08:16 | Outpatient (BNVA) | payer OTHER, SELFPAY | PROVIDERS: PCP Hospitalist; Visit Provider Nurse Practitioner Family | DX: Z51.81 Encounter for therapeutic drug level monitoring (principal); F11.20 Opioid dependence, uncomplicated; M17.12 Unilateral primary osteoarthritis, left knee; M96.1 Postlaminectomy syndrome, not elsewhere classified; M19.041 Primary osteoarthritis, right hand; M19.042 Primary osteoarthritis, left hand; G89.4 Chronic pain syndrome; J32.0 Chronic maxillary sinusitis; Z79.891 Long term (current) use of opiate analgesic | CPT/HCPCS: 99212 ==

== ENCOUNTER → 2022-08-29 07:47 | Outpatient (BNVA) | payer OTHER, SELFPAY | PROVIDERS: PCP Hospitalist; Referring Provider Hospitalist; Visit Provider Nurse Practitioner | DX: K75.81 Nonalcoholic steatohepatitis (NASH) (principal); K21.00 Gastro-esophageal reflux disease with esophagitis, without bleeding; K58.0 Irritable bowel syndrome with diarrhea; F10.21 Alcohol dependence, in remission; Z90.49 Acquired absence of other specified parts of digestive tract | CPT/HCPCS: 99212 ==

== ENCOUNTER 2022-09-28 07:59 | Outpatient (AMB) | payer OTHER, SELFPAY ==
--- NOTE | 2022-09-28 08:21 | MHC.OFFVIS ---
Intake Vital Signs 09/28/22 08:30 Height 6 ft 2 in Weight 220 lb 8 oz BMI 28.3 BP 126/79 Blood Pressure Location Lt brachial Position Sitting Pulse 68 Pulse Source Pulse Oximeter Pulse Oximetry (%) 97 Oxygen Delivery Method Room Air Intake Visit Reasons: Pill count Intake Note: Sridhar comes in today for a pill count to methadone, patient should have 46 tablets and presents with 46 tablets which he last took today 09/28/22 at 7:30am. Pain today 10/26. 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 Accompanied by: Self / Same As Patient Allergies fentanyl Allergy (Intermediate, Verified 09/28/22 08:30) itching morphine [Amber] Allergy (Intermediate, Verified 09/28/22 08:30) itch Iodinated Contrast Media [IV Dye, Iodine Containing] Allergy (Mild, Verified 09/28/22 08:30) DIFFICULTY BREATHING,VOMITING amoxicillin [From Augmentin] Adverse Reaction (Intermediate, Verified 09/28/22 08:30) Diarrhea clavulanic acid [From Augmentin] Adverse Reaction (Intermediate, Verified 09/28/22 08:30) Diarrhea metformin Adverse Reaction (Intermediate, Verified 09/28/22 08:30) stomach pain HPI HPI Comments History of Present Illness Details Patient presents today for a methadone pill count. He is supposed to have #46 pills in their possession and has #46 pills. This demonstrates a responsible attitude in regards to the opioid regimen. Patient reports adequate analgesia, with no noted side effects. Denies any fever, sore throat, shortness of breaths, orbital tenderness, sneezing, dental pain, visual disturbances, abdominal pain, constipation, sedation, nausea, dizziness or urinary retention. Patient status opioid medication allows him to be less symptomatic and more functional. PFSH Medical History Arthritis Cervical radiculopathy Diabetes DMII (diabetes mellitus, type 2) Elevated liver transaminase level High cholesterol Lumbar post-laminectomy syndrome Lumbar radiculopathy, chronic Lumbar spinal stenosis Narcotic drug use Surgical History H/O colonoscopy History of cholecystectomy History of elbow surgery History of lumbar fusion Family History Father Liver problem Alcoholism Substance use disorder Mother No problems noted. Brother CAD (coronary artery disease) Social History Household Members: Family Housing: House Do you presently have visiting nurse or other home services: No Alcohol intake: never Patient Tobacco Use Status: Never used Tobacco e-Cigarette/Vaping Use: Never Used Second Hand Smoke Exposure: No service: No Current occupational status: employed and disabled Current occupational exposures/hazards: No Cognitive needs: Yes (cane) Hearing needs: No Vision needs: Yes (reading glasses) Review of Systems Const All systems reviewed & are unremarkable except as noted in HPI and below Physical Exam Vital Signs: Last Vital Signs Pulse 68 09/28/22 08:30 BP 126/79 09/28/22 08:30 Pulse Ox 97 09/28/22 08:30 Oxygen Delivery Method Room Air 09/28/22 08:30 BMI result Body Mass Index 28.3 On exam today: Appears afebrile. Alert and oriented. Mood and affect appropriate. Follows and participates in conversation appropriately. Respiratory effort is unlabored. No cough. Able to transition from sit to stand unassisted. Ambulates with bilaterally normal heel strike and toe off. Able to stand and walk on toes and heels. Back/Spine/Pelvis Cervical Spine: cervical ROM normal and No Cervical spine tenderness Thoracic/Lumbar Spine: thoracic and lumbar spine normal to inspection, pain with thoraco-lumbar ROM, paraspinal muscle tenderness, No thoracic spinal tenderness and lumbar spinal tenderness Pelvis: no buttock tenderness and no sciatic notch tenderness Psych Appearance: grossly normal and well kempt Mental Status: mental status grossly normal Speech and movement: Normal speech and movement present and Clear speech present Affect: normal affect Attitude: cooperative Thought process: Normal thought process present Thought content: Normal thought content present, suicidality (none), no hallucinations and No Depressive thoughts present Insight: Good insight present (Psych) Judgement: Good judgement present (Psych) Assessment & Plan Assessment & Plan (1) Primary osteoarthritis of left knee: Code(s): M17.12 - Unilateral primary osteoarthritis, left knee (2) Opioid contract exists: Code(s): 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 (3) Chronic pain syndrome: Code(s): G89.4 - Chronic pain syndrome (4) Lumbar post-laminectomy syndrome: Code(s): M96.1 - Postlaminectomy syndrome, not elsewhere classified (5) Osteoarthritis of hands, bilateral: Code(s): M19.041 - Primary osteoarthritis, right hand; M19.042 - Primary osteoarthritis, left hand Qualifiers: Osteoarthritis type: primary Qualified Code(s): M19.041 - Primary osteoarthritis, right hand; M19.042 - Primary osteoarthritis, left hand (6) Lumbar radiculopathy, chronic: Code(s): M54.16 - Radiculopathy, lumbar region Plan Patient has shown accountability for his medication regimen and the pill count was accurate. There is no evidence of misuse, abuse or diversion at this time. [employer] reviewed. Will send in a prescription for methadone 5 mg BID for 30 days with advanced date of 10/21/22. He is aware of monitoring for side effects. All questions were answered and the patient is in agreement with the plan. Will follow up in 4 weeks for a pill count review or sooner if needed. Medications: Refilled methadone 5 mg PO BID 60 tabs 0RF pain 30 days M48.061 - Spinal stenosis, lumbar region without neurogenic claudication, M54.16 - Radiculopathy, lumbar region, M96.1 - Postlaminectomy syndrome, not elsewhere classified Coding Level of Care Code Est Pt Level 4 (84464) Diagnoses Primary osteoarthritis of left knee M17.12 Opioid contract exists Z79.891 Chronic pain syndrome G89.4 Lumbar post-laminectomy syndrome M96.1 Osteoarthritis of hands, bilateral M19.041; M19.042 Osteoarthritis type: primary Lumbar radiculopathy, chronic M54.16
[2022-09-28 08:30] VITALS: BP 126/79; PULSE 68; O2SAT 97; BMI 28.3
== END 2022-09-28 08:37 | disposition home or self-care (01) ==
PROVIDERS: PCP Hospitalist; Visit Provider Nurse Practitioner Family
DX: M17.12 Unilateral primary osteoarthritis, left knee (principal); Z79.891 Long term (current) use of opiate analgesic; G89.4 Chronic pain syndrome; M96.1 Postlaminectomy syndrome, not elsewhere classified; M19.041 Primary osteoarthritis, right hand; M19.042 Primary osteoarthritis, left hand; M54.16 Radiculopathy, lumbar region
CPT/HCPCS: 99214

== ENCOUNTER → 2022-09-28 07:59 | Outpatient (BNVA) | payer OTHER, SELFPAY | PROVIDERS: PCP Hospitalist; Visit Provider Nurse Practitioner Family | DX: G89.4 Chronic pain syndrome (principal); M17.12 Unilateral primary osteoarthritis, left knee; M96.1 Postlaminectomy syndrome, not elsewhere classified; M19.041 Primary osteoarthritis, right hand; M19.042 Primary osteoarthritis, left hand; M54.16 Radiculopathy, lumbar region; Z79.891 Long term (current) use of opiate analgesic | CPT/HCPCS: 99212 ==

== ENCOUNTER 2022-09-30 06:38 | Emergency (ER) | payer OTHER, SELFPAY ==
[2022-09-30 06:45] VITALS: BP 144/62; PULSE 95; RESP 18; TEMP 36.6; O2SAT 96; BMI 25.9
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
[2022-09-30] MEDS: Lidocaine 4 % Patch ADH..PATCH 1 PATCH TRANSDERMA (08:05)
[2022-09-30] MEDS: Acetaminophen 325 MG TABLET 975 MG PO (08:05)
[2022-09-30] MEDS: Ketorolac Tromethamine 15 MG/ML VIAL IM (08:11)
--- NOTE | 2022-09-30 08:18 | PC.NURSE ---
meds given as ordered. pt cleared for discharge, discharge instructions reviewed with pt. pt escorted to er exit by this marketing writer.
== END 2022-09-30 08:18 | disposition home or self-care (01) ==
PROVIDERS: Emergency Provider Student in an Organized Health Care Education/Training Program; PCP Hospitalist
DX: Z04.1 Encounter for examination and observation following transport accident (principal); M62.838 Other muscle spasm
CPT/HCPCS: 96372; 99283; 99284; J1885

== ENCOUNTER 2022-10-10 08:31 | Outpatient (AMB) | payer OTHER, SELFPAY ==
--- NOTE | 2022-10-10 09:02 | MHC.OFFWIV ---
Intake Vital Signs 10/10/22 09:05 BP 120/80 Blood Pressure Location Lt brachial Position Sitting Pulse 72 Pulse Source Pulse Oximeter Pulse Oximetry (%) 96 Oxygen Delivery Method Room Air Intake Visit Reasons: EP Rash on arm, poison derek? (lobby) Intake Note: Patient here for possible poison derek, he was cutting some bushes and trees on sunday. He has been applying cortisone oitment which helps relieve the itch. Patient Tobacco Use Status: Never used Tobacco Allergies fentanyl Allergy (Intermediate, Verified 10/10/22 09:04) itching morphine [Amber] Allergy (Intermediate, Verified 10/10/22 09:04) itch Iodinated Contrast Media [IV Dye, Iodine Containing] Allergy (Mild, Verified 10/10/22 09:04) DIFFICULTY BREATHING,VOMITING amoxicillin [From Augmentin] Adverse Reaction (Intermediate, Verified 10/10/22 09:04) Diarrhea clavulanic acid [From Augmentin] Adverse Reaction (Intermediate, Verified 10/10/22 09:04) Diarrhea metformin Adverse Reaction (Intermediate, Verified 10/10/22 09:04) stomach pain Do you need a note to return to daycare/school/sports/work: No HPI HPI Comments History of Present Illness Details 62-year-old male presents with poison derek type rash to his extremities and neck. PFSH Medical History Arthritis Cervical radiculopathy Diabetes DMII (diabetes mellitus, type 2) Elevated liver transaminase level High cholesterol Lumbar post-laminectomy syndrome Lumbar radiculopathy, chronic Lumbar spinal stenosis Narcotic drug use Surgical History H/O colonoscopy History of cholecystectomy History of elbow surgery History of lumbar fusion Family History Father Liver problem Alcoholism Substance use disorder Mother No problems noted. Brother CAD (coronary artery disease) Social History Household Members: Family Housing: House Do you presently have visiting nurse or other home services: No Alcohol intake: never Patient Tobacco Use Status: Never used Tobacco e-Cigarette/Vaping Use: Never Used Second Hand Smoke Exposure: No service: No Current occupational status: employed and disabled Current occupational exposures/hazards: No Cognitive needs: Yes (cane) Hearing needs: No Vision needs: Yes (reading glasses) Review of Systems Const Details: Constitutional: No Fever, No Chills Cardiovascular: No Chest Pain, No SOB Respiratory: No Cough, No Dyspnea Gastrointestinal: No Nausea, No Vomiting, No Diarrhea, No abdominal Pain Genitourinary: No Dysuria, No Hematuria Musculoskeletal: No joint pain, No Myalgias, No Joint Swelling Skin: No Skin lacerations, positive rash on neck, arms and legs Neuro: No Weakness, No Dizziness, No Headache All systems reviewed & are unremarkable except as noted in HPI and below Physical Exam Vital Signs: Last Vital Signs Pulse 72 10/10/22 09:05 BP 120/80 10/10/22 09:05 Pulse Ox 96 10/10/22 09:05 Oxygen Delivery Method Room Air 10/10/22 09:05 Appearance: Alert. Oriented X3. No acute distress. Eyes: Pupils equal, round and reactive to light. Neck: Normal inspection. Neck supple. CVS: Normal heart rate and rhythm. Pulses normal. Respiratory: No respiratory distress. Breath sounds normal. Abdomen: Soft and nontender. Skin: Erythematous vesicular rash to arms legs neck and hands, consistent with contact dermatitis poison derek. Extremities: No lower extremity edema. Gait well balanced well coordinated Neuro: No motor deficit. No sensory deficit. Cranial nerve 2-12 intact Assessment & Plan Assessment & Plan (1) Poison derek dermatitis: Code(s): L23.7 - Allergic contact dermatitis due to plants, except food Plan 62-year-old male with medical history of diabetes, hypertension, hyperlipidemia, chronic pain syndrome and anemia presents for a vesicular erythematous itchy rash to his arms, legs, and neck. Patient states that he feels that he got contact dermatitis from poison derek exposure. He does not report fevers, chills, or any other concerning symptoms. He has had this for a few days, and nothing [id number] is working. Physical exam indicates a vesicular erythematous rash to arms, legs, and neck. Low likelihood of zoster as it does cross the midline, rash is consistent with contact dermatitis poison derek. Plan of care is to treat with prednisone. Patient does understand the prednisone will increase his blood sugar and that he should drink plenty of water. Supportive measures with [id number] Benadryl. Patient verbalized understanding of discharge instructions. Verbalized understandings of signs and symptoms indicating need for emergent intervention. Medications: New prednisone 40 mg (2 x 20 mg) PO DAILY 14 tabs 0RF 7 days Patient Instructions: You were evaluated for rash to your neck, arms and legs consistent with poison derek. Take prednisone 40 mg daily for the next 7 days. Prednisone will increase your blood sugars. Drink plenty of fluids. Take Benadryl 25 mg every 8 hours as needed for itching. If 25 mg is ineffective, you may take 50 mg. This medication may make you tired, do not drive operate machinery while taking this medication. Thank you for choosing this urgent care for evaluation. Please follow-up with primary care physician as needed. Return to the emergency department for any new, concerning, or worsening symptoms. Coding Level of Care Code Est Pt Level 3 (88363) Diagnoses Poison derek dermatitis L23.7
[2022-10-10 09:05] VITALS: BP 120/80; PULSE 72; O2SAT 96
== END 2022-10-10 10:12 | disposition home or self-care (01) ==
PROVIDERS: PCP Hospitalist; Visit Provider Nurse Practitioner Family
DX: L23.7 Allergic contact dermatitis due to plants, except food (principal)
CPT/HCPCS: 99213

== ENCOUNTER 2022-10-19 08:11 | Outpatient (REF) | payer OTHER, SELFPAY ==
--- NOTE | ~2022-10-19 | US_ITS ---
EXAMINATION: US RETROPERITONEAL LIMITED (RENAL ONLY) CLINICAL INFORMATION: Calculus of kidney. COMPARISON: Renal ultrasound 06/09/2022. Ultrasound abdomen limited 02/24/2022. CT abdomen and pelvis 11/26/2020. X-ray KUB 09/20/2018 and 06/20/2014. TECHNIQUE: Real-time imaging of the kidneys. FINDINGS: RIGHT KIDNEY: 11.7 x 5.8 x 6.3 cm (SAG x AP x TRV). The kidney is normal in size, contour, and echogenicity. Renal cortical thickness is normal. No calculi or focal parenchymal lesions. No hydronephrosis. LEFT KIDNEY: 11.8 x 6.8 x 5.4 cm (SAG x AP x TRV). The kidney is normal in size, contour, and echogenicity. Renal cortical thickness is normal. No focal parenchymal lesions or hydronephrosis. 6 x 3 x 6 mm lower pole not shadowing echogenicity is identified. US/US renal BI IMPRESSION: Question 6 mm nonobstructing left lower pole renal calculus.
[2022-10-19 11:31] LABS: PSA,Total (Free>4and<10) 0.61 ng/mL (0.00-4.00)
[2022-10-24 17:22] LABS: Testosterone, Free 40.9 pg/mL (35.0-155.0); Testosterone, Total 215 ng/dL (250-1100)
== END 2022-10-19 08:12 | disposition home or self-care (01) ==
LOC: HO.US 08:11
PROVIDERS: Absent Provider Nurse Practitioner; PCP Hospitalist; Visit Provider Urology
DX: N20.0 Calculus of kidney (principal); N40.0 Benign prostatic hyperplasia without lower urinary tract symptoms; Z12.5 Encounter for screening for malignant neoplasm of prostate
CPT/HCPCS: 36415; 76775; 84153; 84402; 84403

== ENCOUNTER → 2022-10-27 07:53 | Outpatient (BNVA) | payer OTHER, SELFPAY | PROVIDERS: PCP Hospitalist; Visit Provider Nurse Practitioner Family | DX: Z51.81 Encounter for therapeutic drug level monitoring (principal); Z79.899 Other long term (current) drug therapy | CPT/HCPCS: 99211 ==

== ENCOUNTER 2022-10-30 08:50 | Outpatient (AMB) | payer OTHER, SELFPAY ==
--- NOTE | 2022-10-30 03:25 | MHC.OFFVIS ---
Intake Intake Visit Reasons: follow up/ PSA/ Testo Allergies fentanyl Allergy (Intermediate, Verified 10/27/22 08:20) itching morphine [Amber] Allergy (Intermediate, Verified 10/27/22 08:20) itch Iodinated Contrast Media [IV Dye, Iodine Containing] Allergy (Mild, Verified 10/27/22 08:20) DIFFICULTY BREATHING,VOMITING amoxicillin [From Augmentin] Adverse Reaction (Intermediate, Verified 10/27/22 08:20) Diarrhea clavulanic acid [From Augmentin] Adverse Reaction (Intermediate, Verified 10/27/22 08:20) Diarrhea metformin Adverse Reaction (Intermediate, Verified 10/27/22 08:20) stomach pain Medication List - Last Reconciled 10/30/22 by Arya Lopez MD acetaminophen ER (Tylenol Arthritis Pain) 650 mg PO Q8H PRN 30 days blood sugar diagnostic (FreeStyle Lite Strips) As directed blood-glucose meter (FreeStyle Lite Meter kit) check blood sugars daily and pern ciclopirox 0.77% 1 appl topical BID gabapentin 300 mg PO BID 90 days lancets (FreeStyle Lancets) As directed lidocaine 5% (Lidoderm) leave on most painful area for up to 12 hrs topical linagliptin (Tradjenta) 5 mg PO DAILY methadone 5 mg PO BID 30 days metronidazole 500 mg PO TID 10 days omeprazole 40 mg PO DAILY 30 days prednisone 40 mg (2 x 20 mg) PO DAILY 7 days sildenafil (Viagra) 50 mg PO DAILY PRN testosterone 20.25 mg topical DAILY HPI HPI Comments History of Present Illness Details Sridhar is a 62-year-old male who presents today to the office for follow up to review lab results PSA and testosterone. Review of charts: ?05/01/2022? Sridhar is a 61 year old male with complaint of premature ejaculation and difficulty maintaining and erection.? IIEF - 5 score 8. in a monagamous relationship, able to achieve an erection for penetration, --complains of early ejaculation then sometimes able to get an erection sometimes not successful --states is causing him to be anxious about the situation, states order some meds online --(testosterone boosters and another med to help erections which seemed to help) He denies Urgency or obstructive voiding symptoms, denies dysuria CoMorbidities- Diabetes, h/o narcotic use on methadone Evaluation today - UA - no signs of infection, Plan Free and Total testosterone, PSA screening --trial of paxil 20 mg daily, Viagra 50 (1/2-1 tab prn 30 minutes prior to intercourse) --renal u/s Review of Imagin11/26/20-[facility]KUB --left kidney stone 5 mm?? On today?s visit-- 10/30/2022? He was initially evaluated on 05/01/2022 as a new patient for erectile dysfunction and complaints of premature ejaculation. He was prescribed Paxil 20 mg and Viagra 50 mg to use prior to intercourse prn. He developed nausea secondary to taking Paxil 20 mg so is not taking this med. I reviewed the renal US results from 10/19/22 which revealed 6 mm non obstructive left lower pole kidney stone. Review of labs: 10/19/2022 revealed PSA?0.61, total testosterone 215 which is low, and free testosterone 40.99 which is low normal. Of noted he is on methadone.? Plan: Ordered Testosterone 20.25 mg per 1.25 gram pump, apply one pump daily to upper arm. Viagra prn. Follow up in 4 months to recheck testosterone level. Will monitor left kidney stone, US in one year. PFSH Medical History Arthritis Cervical radiculopathy Diabetes DMII (diabetes mellitus, type 2) Elevated liver transaminase level High cholesterol Lumbar post-laminectomy syndrome Lumbar radiculopathy, chronic Lumbar spinal stenosis Narcotic drug use Surgical History H/O colonoscopy History of cholecystectomy History of elbow surgery History of lumbar fusion Family History Father Liver problem Alcoholism Substance use disorder Mother No problems noted. Brother CAD (coronary artery disease) Social History Household Members: Family Housing: House Do you presently have visiting nurse or other home services: No Alcohol intake: never Patient Tobacco Use Status: Never used Tobacco e-Cigarette/Vaping Use: Never Used Second Hand Smoke Exposure: No service: No Current occupational status: employed and disabled Current occupational exposures/hazards: No Cognitive needs: Yes (cane) Hearing needs: No Vision needs: Yes (reading glasses) Review of Systems Const All systems reviewed & are unremarkable except as noted in HPI and below Reports no additional complaints Eyes Reports no additional complaints ENT Denies neck pain Card Denies leg edema Resp Denies cough GI Denies constipation Reports urinary incontinence Musc Reports no additional complaints and Denies neck pain Skin/Breast Denies rash and Denies unusual bruising Neuro Reports no additional complaints Psych Reports no additional complaints Endo Reports no additional complaints Barrie/Lymph Reports no additional complaints Aller/Immun Reports no additional complaints Physical Exam Const General: no acute distress and well developed Orientation/consciousness: patient oriented x3 HEENT Head: Yes normocephalic and Yes atraumatic Eyes Conjunctivae: conjunctivae normal Neck Neck: Yes normal visual inspection Chest Chest palpation & inspection: normal inspection of the chest Resp Effort & Inspection: normal respiratory effort Cardio Rate: regular rate GI Inspection: Yes normal to inspection Skin General skin exam: no rashes or lesions noted Neuro General: patient oriented x3 Extrem General: No pedal edema Psych Appearance: grossly normal Affect: normal affect Results Reviewed Results Reviewed: Date of Service: 10/19/22; EXAMINATION: US RETROPERITONEAL LIMITED (RENAL ONLY) CLINICAL INFORMATION: Calculus of kidney. COMPARISON: Renal ultrasound 06/09/2022. Ultrasound abdomen limited 02/24/2022. CT abdomen and pelvis 11/26/2020. X-ray KUB 09/20/2018 and 06/20/2014. FINDINGS: RIGHT KIDNEY: 11.7 x 5.8 x 6.3 cm (SAG x AP x TRV). The kidney is normal in size, contour, and echogenicity. Renal cortical thickness is normal. No calculi or focal parenchymal lesions. No hydronephrosis. LEFT KIDNEY: 11.8 x 6.8 x 5.4 cm (SAG x AP x TRV). The kidney is normal in size, contour, and echogenicity. Renal cortical thickness is normal. No focal parenchymal lesions or hydronephrosis. 6 x 3 x 6 mm lower pole not shadowing echogenicity is identified. IMPRESSION: Question 6 mm nonobstructing left lower pole renal calculus. Assessment & Plan Assessment & Plan (1) Kidney stone on left side: Code(s): N20.0 - Calculus of kidney (2) Hypogonadism in male: Code(s): E29.1 - Testicular hypofunction (3) Erectile dysfunction: Code(s): N52.9 - Male erectile dysfunction, unspecified Orders: Orders Testosterone, Free/Total 14 Weeks E29.1 - Testicular hypofunction, N20.0 - Calculus of kidney Medications: New testosterone apply 1 pump amount over max area of ONE upper arm and shoulder 20.25 mg topical DAILY 75 grams 0RF Refilled sildenafil (Viagra) administer 30 minutes to 4 hours before activity, take 1/2 tab to one tab 30 minutes prior to intercourse BIN [facility] Group [facility] [address] [id number] 50 mg PO DAILY PRN 30 tabs 0RF sexual activity Patient Instructions: The patient had an opportunity to ask questions regarding treatment plan. All questions were answered. Imaging, Laboratory studies and physical exam results were discussed and reviewed in detail. No major barriers to understanding were identified. The patient expressed understanding and agreement with the above treatment plan.? ? ? The patient is aware they should contact our office by phone for worsening of their current condition or the appearance of new symptoms. Compliance is encouraged with any medications and followup testing that is ordered.? ? ? It is a privilege to be allowed the opportunity to participate in the urologic care of your patient. If you have any questions or concerns regarding treatment for the above conditions please do not hesitate to contact me. The office telephone contact is [phone].? ? ? This note is constructed in part using voice recognition software. While every effort has been made to ensure accuracy technology assistant errors may have been included.? ? ? Yours sincerely,? ? ? Arya Lopez MD? Coding Level of Care Code Est Pt Level 4 (67400) Diagnoses Kidney stone on left side N20.0 Hypogonadism in male E29.1 Erectile dysfunction N52.9
== END 2022-10-30 09:40 | disposition home or self-care (01) ==
PROVIDERS: PCP Hospitalist; Visit Provider Urology
DX: N20.0 Calculus of kidney (principal); E29.1 Testicular hypofunction; N52.9 Male erectile dysfunction, unspecified
CPT/HCPCS: 99214

== ENCOUNTER → 2022-10-30 08:50 | Outpatient (BNVA) | payer OTHER, SELFPAY | PROVIDERS: PCP Hospitalist; Visit Provider Urology | DX: N20.0 Calculus of kidney (principal); E29.1 Testicular hypofunction; E11.69 Type 2 diabetes mellitus with other specified complication; N52.1 Erectile dysfunction due to diseases classified elsewhere; Z79.52 Long term (current) use of systemic steroids; Z79.891 Long term (current) use of opiate analgesic | CPT/HCPCS: 99212 ==

== ENCOUNTER 2022-11-24 08:17 | Outpatient (AMB) | payer OTHER, SELFPAY ==
--- NOTE | 2022-11-24 08:21 | MHC.OFFVIS ---
Intake Vital Signs 11/24/22 08:33 Height 6 ft 2 in Weight 227 lb 6 oz BMI 29.2 BP 162/81 H Blood Pressure Location Lt brachial Position Sitting Pulse 80 Pulse Source Pulse Oximeter Pulse Oximetry (%) 97 Oxygen Delivery Method Room Air Intake Visit Reasons: Pill count Intake Note: Sridhar comes in today for a pill count to methadone, patient should have 58 tablets and presents with 57 tablets which he last took today 11/24/22 at 7:30am. 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/26. Nascar Racer Required: No Accompanied by: Self / Same As Patient Allergies fentanyl Allergy (Intermediate, Verified 11/24/22 08:22) itching morphine [Amber] Allergy (Intermediate, Verified 11/24/22 08:22) itch Iodinated Contrast Media [IV Dye, Iodine Containing] Allergy (Mild, Verified 11/24/22 08:22) DIFFICULTY BREATHING,VOMITING amoxicillin [From Augmentin] Adverse Reaction (Intermediate, Verified 11/24/22 08:22) Diarrhea clavulanic acid [From Augmentin] Adverse Reaction (Intermediate, Verified 11/24/22 08:22) Diarrhea metformin Adverse Reaction (Intermediate, Verified 11/24/22 08:22) stomach pain HPI HPI Comments History of Present Illness Details Patient presents today for a methadone pill count. He is supposed to have #58 pills in their possession and has #57 pills. This demonstrates a responsible attitude in regards to the opioid regimen. Patient reports adequate analgesia, with no noted side effects. Patient reports increased in lower back pain with left radicular symptoms and significantly worsening numbness, tingling and weakness in his left lateral lower leg, left calf and left heel over the past 3 days. Denies any recent trauma, injury, heavy lifting or falls. Patient has chronic spinal stenosis related pain and we attempted Caudal ERNST with catheter with local but he was not able to go through procedure without sedation and canceled injection. He has done several trials with oral steroids with minimal relief. Last lumbar MRI was completed in 2019. Patient reports back pain is severe with prolonged sitting, walking or standing and mildly relieved with leaning forward. Current pain medication only partially alleviates his symptoms. He is unable to pursue physical therapy due to significant acute on chronic back pain. Denies any fever, sore throat, shortness of breaths, abdominal pain, constipation, sedation, nausea, dizziness, urinary retention, bladder or bowel dysfunction or saddle anesthesia. [facility] [place] Medical History Narcotic drug use DMII (diabetes mellitus, type 2) Elevated liver transaminase level High cholesterol Arthritis Diabetes Lumbar radiculopathy, chronic Lumbar spinal stenosis Cervical radiculopathy Lumbar post-laminectomy syndrome Surgical History H/O colonoscopy History of elbow surgery History of lumbar fusion History of cholecystectomy Family History Father Liver problem Alcoholism Substance use disorder Mother No problems noted. Brother CAD (coronary artery disease) Social History Household Members: Family Housing: House Do you presently have visiting nurse or other home services: No Alcohol intake: never Patient Tobacco Use Status: Never used Tobacco e-Cigarette/Vaping Use: Never Used Second Hand Smoke Exposure: No service: No Current occupational status: employed and disabled Current occupational exposures/hazards: No Cognitive needs: Yes (cane) Hearing needs: No Vision needs: Yes (reading glasses) Review of Systems Const All systems reviewed & are unremarkable except as noted in HPI and below Physical Exam Vital Signs: Last Vital Signs Pulse 80 11/24/22 08:33 BP 162/81 H 11/24/22 08:33 Pulse Ox 97 11/24/22 08:33 Oxygen Delivery Method Room Air 11/24/22 08:33 BMI result Body Mass Index 29.2 On exam today: Appears afebrile. Alert and oriented. Mood and affect appropriate. Follows and participates in conversation appropriately. Respiratory effort is unlabored. No cough. No nasal discharge. Able to transition from sit to stand unassisted. Able to stand and walk on toes and heels but reports unsteady gait on the left. Limited lumbar ROM due to pain. Antalgic gate, no assisting devices. No limping. Positive SLR with dorsiflexion on the left. +Facet loading bilaterally, worse on the left. Extrem General: Yes capillary refill normal, Yes no clubbing, cyanosis or edema and Yes no calf tenderness Psych Appearance: grossly normal Mental Status: mental status grossly normal Speech and movement: Normal speech and movement present Affect: normal affect Attitude: cooperative Thought process: Normal thought process present Thought content: Normal thought content present, suicidality (none), no hallucinations and No Depressive thoughts present Insight: Good insight present (Psych) Judgement: Good judgement present (Psych) Results Reviewed Results Reviewed: MRI of the lumbar spine November 2019. There is postoperative changes related to interbody fusion across the L5-S1 level. The nonsurgical disc heights are preserved. Mild amount of marrow edema is seen superiorly at L4. The distal spinal cord appears normal. Conus terminates at L2. Spinal levels: L1-L2-L2-L3 normal L3-L4 disc bulging with small central protrusion causing mild spinal canal stenosis with indentation of the ventral thecal sac. Mild facet arthropathy and ligamentum flavum for un folding. Mild bilateral neural foraminal stenosis. L4-5: Disc bulging with central extrusion with mild superior migration which in combination with ligamentum flavum un folding moderate facet arthropathy results in [id number] spinal canal stenosis. Mild right and [id number] left neural foraminal stenosis with mild mass effect on the exiting left L4 nerve root. L5-S1: Posterior decompression and solid interbody fusion. No spinal canal stenosis. Hypertrophic bone formation results in osseous narrowing of the bilateral neural foramina with abutment of both exiting L5 nerve roots. Assessment & Plan Assessment & Plan (1) Lumbar radiculopathy, chronic: Code(s): M54.16 - Radiculopathy, lumbar region (2) Lumbar spinal stenosis: Code(s): M48.061 - Spinal stenosis, lumbar region without neurogenic claudication (3) Lumbar post-laminectomy syndrome: Code(s): M96.1 - Postlaminectomy syndrome, not elsewhere classified (4) Primary osteoarthritis of left knee: Code(s): M17.12 - Unilateral primary osteoarthritis, left knee (5) Opioid contract exists: Code(s): Z79.891 - FDC (current) use of opiate analgesic (6) Chronic pain syndrome: Code(s): G89.4 - Chronic pain syndrome (7) Osteoarthritis of hands, bilateral: Code(s): M19.041 - Primary osteoarthritis, right hand; M19.042 - Primary osteoarthritis, left hand Qualifiers: Osteoarthritis type: primary Qualified Code(s): M19.041 - Primary osteoarthritis, right hand; M19.042 - Primary osteoarthritis, left hand Plan Patient has shown accountability for his medication regimen and the pill count was accurate. There is no evidence of misuse, abuse or diversion at this time. Apptimize reviewed. Will send in a prescription for methadone 5 mg BID for 30 days with advanced date of 12/21/22. Patient is aware of monitoring for side effects. For acute on chronic low back pain with left sided radiculopathy and spinal stenosis related pain, we will proceed with updating his lumbar spine MRI to assess for neural integrity and compression. Patient will return to the clinic to discuss results of the MRI findings when it is done and consider interventional therapy vs neurosurgical evaluation as indicated. All questions were answered and the patient is in agreement with the plan. Will follow up in 4-5 weeks for a pill count review or sooner if needed. Orders: Orders MR lumbar spine wo con Today M48.061 - Spinal stenosis, lumbar region without neurogenic claudication, M54.16 - Radiculopathy, lumbar region, M96.1 - Postlaminectomy syndrome, not elsewhere classified Medications: New methylprednisolone (Medrol (Emmanuel)) PO PER PKG DIR 21 ea 0RF pain M48.061 - Spinal stenosis, lumbar region without neurogenic claudication, M54.16 - Radiculopathy, lumbar region, M96.1 - Postlaminectomy syndrome, not elsewhere classified Changed From methadone 5 mg PO BID 30 days 60 tabs 0RF pain M48.061 - Spinal stenosis, lumbar region without neurogenic claudication, M54.16 - Radiculopathy, lumbar region, M96.1 - Postlaminectomy syndrome, not elsewhere classified To methadone Partial Fill upon patient request. 5 mg PO BID 30 days 60 tabs 0RF pain M48.061 - Spinal stenosis, lumbar region without neurogenic claudication, M54.16 - Radiculopathy, lumbar region, M96.1 - Postlaminectomy syndrome, not elsewhere classified Refilled gabapentin 300 mg PO BID 90 days 180 caps 6RF pain M48.061 - Spinal stenosis, lumbar region without neurogenic claudication, M54.16 - Radiculopathy, lumbar region, M96.1 - Postlaminectomy syndrome, not elsewhere classified acetaminophen ER (Tylenol Arthritis Pain) 650 mg PO Q8H 30 days PRN 90 tabs 0RF pain G89.4 - Chronic pain syndrome, M19.90 - Unspecified osteoarthritis, unspecified site Coding Level of Care Code Est Pt Level 4 (75641) Diagnoses Lumbar radiculopathy, chronic M54.16 Lumbar spinal stenosis M48.061 Lumbar post-laminectomy syndrome M96.1 Primary osteoarthritis of left knee M17.12 Opioid contract exists Z79.891 Chronic pain syndrome G89.4 Primary osteoarthritis of both hands M19.041; M19.042 Osteoarthritis type: primary
[2022-11-24 08:33] VITALS: BP 162/81; PULSE 80; O2SAT 97; BMI 29.2
== END 2022-11-24 08:40 | disposition home or self-care (01) ==
PROVIDERS: PCP Hospitalist; Visit Provider Nurse Practitioner Family
DX: G89.4 Chronic pain syndrome (principal); M54.16 Radiculopathy, lumbar region; M48.061 Spinal stenosis, lumbar region without neurogenic claudication; M96.1 Postlaminectomy syndrome, not elsewhere classified; M17.12 Unilateral primary osteoarthritis, left knee; Z79.891 Long term (current) use of opiate analgesic; M19.041 Primary osteoarthritis, right hand; M19.042 Primary osteoarthritis, left hand
CPT/HCPCS: 99214

== ENCOUNTER → 2022-11-24 08:17 | Outpatient (BNVA) | payer OTHER, SELFPAY | PROVIDERS: PCP Hospitalist; Visit Provider Nurse Practitioner Family | DX: M54.16 Radiculopathy, lumbar region (principal); M48.061 Spinal stenosis, lumbar region without neurogenic claudication; M96.1 Postlaminectomy syndrome, not elsewhere classified; M17.12 Unilateral primary osteoarthritis, left knee; G89.4 Chronic pain syndrome; M19.041 Primary osteoarthritis, right hand; M19.042 Primary osteoarthritis, left hand; Z79.891 Long term (current) use of opiate analgesic | CPT/HCPCS: 99212 ==

== ENCOUNTER 2022-12-21 04:35 | Emergency (ER) | payer OTHER, SELFPAY ==
[2022-12-21 04:42] VITALS: BP 142/83; PULSE 82; RESP 16; TEMP 36.8; O2SAT 97; BMI 28.8
--- NOTE | 2022-12-21 05:13 | ED_ITS ---
HPI - Back Pain/Injury General Chief Complaint: Back Pain/Injury Stated Complaint: leg and back pain Time Seen by Provider: 12/21/22 05:13 Source: patient Mode of arrival: ambulatory Limitations: no limitations History of Present Illness HPI Narrative: Patient lumbar canal stenosis chronic lumbar radiculopathy status post laminectomy on methadone for pain control followed by Pain Clinic comes here for increased pain for last few days radiating to the right leg specially. No muscle weakness no bladder or bowel involvement patient is supposed to see the doctor in pain clinic tomorrow no recent fall or injury Related Data Home Medications Medication Instructions Recorded Confirmed ciclopirox 0.77 % topical cream 1 appl topical BID 08/24/22 10/30/22 Previous Rx's Medication Instructions Recorded blood sugar diagnostic (FreeStyle #50 ea 06/06/21 Lite Strips) blood-glucose meter (FreeStyle #1 ea 06/06/21 Lite Meter kit) lancets 28 gauge (FreeStyle #100 ea 06/06/21 Lancets) linagliptin 5 mg tablet (Tradjenta) 5 mg PO DAILY #90 tabs 05/04/22 lidocaine 5 % topical patch See Rx Instructions topical 06/27/22 (Lidoderm) .COMPLEX #30 ea metronidazole 500 mg tablet 500 mg PO TID 10 days #30 tabs 07/07/22 prednisone 20 mg tablet 40 mg (2 x 20 mg) PO DAILY 7 days 10/10/22 #14 tabs omeprazole 40 mg capsule,delayed 40 mg PO DAILY 30 days #30 caps 10/13/22 release sildenafil 50 mg tablet (Viagra) 50 mg PO DAILY PRN sexual activity 10/30/22 #30 tabs testosterone 20.25 mg topical DAILY #75 grams 10/30/22 acetaminophen 650 mg 650 mg PO Q8H PRN pain 30 days #90 11/24/22 tablet,extended release (Tylenol tabs Arthritis Pain) gabapentin 300 mg capsule 300 mg PO BID pain 90 days #180 11/24/22 caps methadone 5 mg tablet 5 mg PO BID pain 30 days #60 tabs 11/24/22 methylprednisolone 4 mg tablets in See Rx Instructions PO PER PKG DIR 11/24/22 a dose pack (Medrol (Emmanuel)) pain #21 ea Allergies Allergy/AdvReac Type Severity Reaction Status Date / Time fentanyl Allergy Intermediate itching Verified 09/08/23 08:22 morphine [Amber] Allergy Intermediate itch Verified 11/24/22 08:22 Iodinated Contrast Media Allergy Mild DIFFICULTY Verified 11/24/22 08:22 [IV Dye, Iodine Containing] BREATHING,VOMITING amoxicillin [From Augmentin] AdvReac Intermediate Diarrhea Verified 11/24/22 08:22 clavulanic acid AdvReac Intermediate Diarrhea Verified 11/24/22 08:22 [From Augmentin] metformin AdvReac Intermediate stomach Verified 11/24/22 08:22 pain Review of Systems 2 Review of Systems: Yes all other systems are reviewed and are negative [facility] Past Medical History Medical History Narcotic drug use DMII (diabetes mellitus, type 2) Elevated liver transaminase level High cholesterol Arthritis Diabetes Lumbar radiculopathy, chronic Lumbar spinal stenosis Cervical radiculopathy Lumbar post-laminectomy syndrome Surgical History H/O colonoscopy History of elbow surgery History of lumbar fusion History of cholecystectomy Family History Family History Father Liver problem Alcoholism Substance use disorder Mother No problems noted. Brother CAD (coronary artery disease) Social History Social History Household Members: Family Housing: House Do you presently have visiting nurse or other home services: No Alcohol intake: never Patient Tobacco Use Status: Never used Tobacco e-Cigarette/Vaping Use: Never Used Second Hand Smoke Exposure: No Advance Directives: No Advance Directives Information Provided: Yes service: No Current occupational status: employed and disabled Current occupational exposures/hazards: No Cognitive needs: Yes (cane) Hearing needs: No Vision needs: Yes (reading glasses) Physical Exam 2 Vital Signs: Vital Signs: Last Vital Signs Temp 98.3 F 12/21/22 04:42 Pulse 82 12/21/22 04:42 Resp 16 12/21/22 04:42 BP 142/83 H 12/21/22 04:42 Pulse Ox 97 12/21/22 04:42 O2 Del Method Room Air 12/21/22 04:42 BMI result Body Mass Index 28.8 Appearance: Alert. Oriented X3. No acute distress. Eyes: PERRLA, No Nystagmus ENT: Pharynx normal. Oral Mucosa moist Neck: Normal inspection. Neck supple. CVS: Normal heart rate and rhythm. Pulses normal. Respiratory: No respiratory distress. Equal air entry bilateral, no wheezing/rales/rhonchi Abdomen: Soft and nontender. Bowel sounds are present, no mass palpable, no CVA tenderness Skin: Skin warm and dry. Normal skin color. Normal skin turgor. Extremities: No lower extremity edema. No calf tenderness Neuro: Oriented X 3. No motor deficit. No sensory deficit.No cerebellar signs , cranial nerves II-XII intact Back/Spine/Pelvis: Back/spine/pelvis image: 1. Diffuse lumbar spinal tenderness at the site of the previous surgery SLR negative bilaterally normal Sectral sensation Medical Decision Making Medical Decision Making MDM Narrative: Patient has chronic low back pain with history of lumbar spinal stenosis is seen by pain clinic will advised to follow-up with them no signs of acute spinal injury or compression Discharge Plan Discharge Clinical Impression: Lumbar spinal stenosis Patient Disposition: Home, Self-Care Instructions: Lumbar Spinal Stenosis (ED) Additional Instructions: Continue pain medication and follow-up with your Pain Clinic and pacs specialist Prescriptions: No Action Tradjenta 5 mg tablet 5 mg PO DAILY Qty: 90 3RF metronidazole 500 mg tablet 500 mg PO TID 10 Days Qty: 30 0RF omeprazole 40 mg capsule,delayed release(DR/EC) 40 mg PO DAILY 30 Days Qty: 30 6RF (DME) blood-glucose meter [FreeStyle Lite Meter] Kit See Rx Instructions .ROUTE .MEDSUPPLY Qty: 1 0RF Rx Instructions: check blood sugars daily and pern (DME) FreeStyle Lite Strips Strip See Rx Instructions .ROUTE .MEDSUPPLY Qty: 50 8RF Rx Instructions: As directed (DME) lancets [FreeStyle Lancets] 28 gauge misc See Rx Instructions .ROUTE .MEDSUPPLY Qty: 100 4RF Rx Instructions: As directed prednisone 20 mg tablet 40 mg PO DAILY 7 Days Qty: 14 0RF lidocaine [Lidoderm] 5 % adhesive patch,medicated See Rx Instructions topical .COMPLEX Qty: 30 2RF Rx Instructions: leave on most painful area for up to 12 hrs topical methylprednisolone [Medrol (Emmanuel)] 4 mg tablets,dose pack See Rx Instructions PO PER PKG DIR Qty: 21 0RF Rx Instructions: PO PER PKG DIR gabapentin 300 mg capsule 300 mg PO BID 90 Days Qty: 180 6RF acetaminophen [Tylenol Arthritis Pain] 650 mg tablet extended release 650 mg PO Q8H PRN (Reason: pain) 30 Days Qty: 90 0RF methadone 5 mg tablet 5 mg PO BID 30 Days Qty: 60 0RF Rx Instructions: Partial Fill upon patient request. ciclopirox 0.77 % cream 1 appl topical BID testosterone 20.25 mg/1.25 gram (1.62 %) gel in metered-dose pump 20.25 mg topical DAILY Qty: 75 0RF Rx Instructions: apply 1 pump amount over max area of ONE upper arm and shoulder sildenafil [Viagra] 50 mg tablet 50 mg PO DAILY PRN (Reason: sexual activity) Qty: 30 0RF Rx Instructions: administer 30 minutes to 4 hours before activity, take 1/2 tab to one tab 30 minutes prior to intercourse [facility] [id number] Referrals: Anastacio Tam MD [Physician] -
[2022-12-21] MEDS: HYDROmorphone HCl 2 MG TABLET PO (05:51)
== END 2022-12-21 05:54 | disposition home or self-care (01) ==
PROVIDERS: Emergency Provider Internal Medicine
DX: M48.061 Spinal stenosis, lumbar region without neurogenic claudication (principal); M54.16 Radiculopathy, lumbar region; E11.9 Type 2 diabetes mellitus without complications; E78.5 Hyperlipidemia, unspecified; Z79.899 Other long term (current) drug therapy
CPT/HCPCS: 99283; 99284

== ENCOUNTER 2022-12-22 08:11 | Outpatient (AMB) | payer OTHER, SELFPAY ==
--- NOTE | 2022-12-22 08:33 | MHC.OFFVIS ---
Intake Vital Signs 12/22/22 08:42 Height 6 ft 2 in Weight 228 lb BMI 29.3 BP 155/84 H Blood Pressure Location Rt brachial Position Sitting Pulse 79 Pulse Source Pulse Oximeter Pulse Oximetry (%) 96 Oxygen Delivery Method Room Air Intake Visit Reasons: Pill count Intake Note: Sridhar comes in today for a pill count to methadone, patient should have 58 tablets and presents with 58 tablets which he last took today 12/22/22 at 8am. 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/26. 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 Accompanied by: Self / Same As Patient Allergies fentanyl Allergy (Intermediate, Verified 12/22/22 08:43) itching morphine [Amber] Allergy (Intermediate, Verified 12/22/22 08:43) itch Iodinated Contrast Media [IV Dye, Iodine Containing] Allergy (Mild, Verified 12/22/22 08:43) DIFFICULTY BREATHING,VOMITING amoxicillin [From Augmentin] Adverse Reaction (Intermediate, Verified 12/22/22 08:43) Diarrhea clavulanic acid [From Augmentin] Adverse Reaction (Intermediate, Verified 12/22/22 08:43) Diarrhea metformin Adverse Reaction (Intermediate, Verified 12/22/22 08:43) stomach pain HPI HPI Comments History of Present Illness Details Patient presents today for a methadone pill count. He is supposed to have #58 pills in their possession and has #58 pills. This demonstrates a responsible attitude in regards to the opioid regimen. Patient reports adequate analgesia, with no noted side effects. Denies any fever, sore throat, shortness of breaths, abdominal pain, constipation, sedation, nausea, dizziness, urinary retention, bladder or bowel dysfunction or saddle anesthesia. Patient reports moderate to severe spinal stenosis related pain that has been increasing over the past few days and prompted him to get evaluation at our ER department. He presented to ER with 12/26 yesterday and again today in our office 12/26. Patient reports he received Dilaudid 2 mg PO and Flexeril 10 mg 2 tablets in ER with partial pain relief. Patient reports pain came on suddenly few days ago due to heavy lifting and injuring his back. No imaging was obtained in ER. His lumbar spine MRI is scheduled for 01/30/23 and we will reach out to MRI to reschedule this within one week. Patient ambulates with antalgic, slow gait, uses cane, in flexforward position and positive bilateral SLR testing, worse on the left with shooting, numbness, tingling and burning pain in L4-L5 distribution on the right and L5-S1 distribution on the left. Pain increases after walking 3-5 min or standing 7-10 min, cannot tolerate prolonged sitting either, has to constantly change his positioning. Current pain medication only partially alleviates his symptoms and therefore we will proceed with increase in his methadone to 10 mg BID. Patient is unable to pursue physical therapy due to significant acute on chronic back pain. Denies any bladder or bowel dysfunction, or saddle anesthesia. [facility] Medical History Narcotic drug use DMII (diabetes mellitus, type 2) Elevated liver transaminase level High cholesterol Arthritis Diabetes Lumbar radiculopathy, chronic Lumbar spinal stenosis Cervical radiculopathy Lumbar post-laminectomy syndrome Surgical History H/O colonoscopy History of elbow surgery History of lumbar fusion History of cholecystectomy Family History Father Liver problem Alcoholism Substance use disorder Mother No problems noted. Brother CAD (coronary artery disease) Social History Household Members: Family Housing: House Do you presently have visiting nurse or other home services: No Alcohol intake: never Patient Tobacco Use Status: Never used Tobacco e-Cigarette/Vaping Use: Never Used Second Hand Smoke Exposure: No service: No Current occupational status: employed and disabled Current occupational exposures/hazards: No Cognitive needs: Yes (cane) Hearing needs: No Vision needs: Yes (reading glasses) Review of Systems Const All systems reviewed & are unremarkable except as noted in HPI and below Physical Exam On exam today: Appears afebrile. Alert and oriented. Mood and affect appropriate. Follows and participates in conversation appropriately. Respiratory effort is unlabored. No cough. No nasal discharge. Able to transition from sit to stand unassisted. Able to stand and walk on toes and heels but reports unsteady gait on the left. Limited lumbar ROM due to pain. Antalgic gate, uses cane. Positive SLR with dorsiflexion on the left at L5-S1, and right in L4-L5. +Facet loading bilaterally, worse on the left. Back/Spine/Pelvis Cervical Spine: cervical ROM normal and No Cervical spine tenderness Thoracic/Lumbar Spine: thoracic and lumbar spine normal to inspection, Thoracic/lumbar spine scar(s), Lasegue's sign positive localized, pain with thoraco-lumbar ROM, paraspinal muscle tenderness, thoraco-lumbar ROM limited, No thoracic spinal tenderness, lumbar spinal tenderness (L4-S1) and straight leg raise positive bilateral at 30 degrees Pelvis: buttock tenderness on the left Sacroiliac joints: bilaterally nontender Extrem General: Yes capillary refill normal, Yes no clubbing, cyanosis or edema and Yes no calf tenderness Psych Appearance: grossly normal Mental Status: mental status grossly normal Speech and movement: Normal speech and movement present Affect: normal affect Attitude: cooperative Thought process: Normal thought process present Thought content: Normal thought content present, suicidality (none), no hallucinations and No Depressive thoughts present Insight: Good insight present (Psych) Judgement: Good judgement present (Psych) Assessment & Plan Assessment & Plan (1) Lumbar spondylosis: Code(s): M47.816 - Spondylosis without myelopathy or radiculopathy, lumbar region (2) Lumbar spinal stenosis: Code(s): M48.061 - Spinal stenosis, lumbar region without neurogenic claudication (3) Lumbar radiculopathy, chronic: Code(s): M54.16 - Radiculopathy, lumbar region (4) Lumbar post-laminectomy syndrome: Code(s): M96.1 - Postlaminectomy syndrome, not elsewhere classified (5) Primary osteoarthritis of left knee: Code(s): M17.12 - Unilateral primary osteoarthritis, left knee (6) Opioid contract exists: Code(s): Z79.891 - residential (current) use of opiate analgesic (7) Chronic pain syndrome: Code(s): G89.4 - Chronic pain syndrome (8) Osteoarthritis of hands, bilateral: Code(s): M19.041 - Primary osteoarthritis, right hand; M19.042 - Primary osteoarthritis, left hand Qualifiers: Osteoarthritis type: primary Qualified Code(s): M19.041 - Primary osteoarthritis, right hand; M19.042 - Primary osteoarthritis, left hand Plan Patient has shown accountability for his medication regimen and the pill count was accurate. There is no evidence of misuse, abuse or diversion at this time. [employer] reviewed. Given moderate to severe pain on current dose and progressively worsening spinal-stenosis related back pain, we will increase methadone to 10 mg BID for 30 days with advanced date of 01/04/23. Patient will take current script of 5 mg 2 tablets BID starting today which will provide him 14.5 days of medication until 01/04/23. Patient is aware of monitoring for side effects. Scripts for prednisone and meloxicam also provided for acute back with radiculopathy symptoms. Lumbar spine MRI to assess for neural integrity and compression scheduled on 01/30/23, will need to reschedule within 1 week. Patient will return to the clinic to discuss results of the MRI findings when it is done and consider interventional therapy vs neurosurgical evaluation as indicated. Patient is aware to call if pain worsens or if he develops any red flag symptoms to seek emergency care. Patient denies any cauda equina syndrome symptoms at this time. All questions were answered and the patient is in agreement with the plan. Follow up in 4 weeks for a pill count review or sooner if needed. Orders: Orders XR lumbar spine 6V w bending Today M47.816 - Spondylosis without myelopathy or radiculopathy, lumbar region, M48.061 - Spinal stenosis, lumbar region without neurogenic claudication, M54.16 - Radiculopathy, lumbar region Medications: New meloxicam 15 mg PO DAILY 30 days PRN 30 tabs 0RF pain M47.816 - Spondylosis without myelopathy or radiculopathy, lumbar region, M48.061 - Spinal stenosis, lumbar region without neurogenic claudication, M54.16 - Radiculopathy, lumbar region Changed From methadone Partial Fill upon patient request. 5 mg PO BID 30 days 60 tabs 0RF pain M47.816 - Spondylosis without myelopathy or radiculopathy, lumbar region, M48.061 - Spinal stenosis, lumbar region without neurogenic claudication, M54.16 - Radiculopathy, lumbar region, M96.1 - Postlaminectomy syndrome, not elsewhere classified To methadone Partial Fill upon patient request. 10 mg PO BID 30 days 60 tabs 0RF pain M47.816 - Spondylosis without myelopathy or radiculopathy, lumbar region, M48.061 - Spinal stenosis, lumbar region without neurogenic claudication, M54.16 - Radiculopathy, lumbar region, M96.1 - Postlaminectomy syndrome, not elsewhere classified Refilled prednisone 40 mg (2 x 20 mg) PO DAILY 7 days 14 tabs 0RF methylprednisolone (Medrol (Emmanuel)) PO PER PKG DIR 21 ea 0RF pain M48.061 - Spinal stenosis, lumbar region without neurogenic claudication, M54.16 - Radiculopathy, lumbar region, M96.1 - Postlaminectomy syndrome, not elsewhere classified Coding Level of Care Code Est Pt Level 4 (42144) Diagnoses Lumbar spondylosis M47.816 Lumbar spinal stenosis M48.061 Lumbar radiculopathy, chronic M54.16 Lumbar post-laminectomy syndrome M96.1 Primary osteoarthritis of left knee M17.12 Opioid contract exists Z79.891 Chronic pain syndrome G89.4 Primary osteoarthritis of both hands M19.041; M19.042 Osteoarthritis type: primary
[2022-12-22 08:42] VITALS: BP 155/84; PULSE 79; O2SAT 96; BMI 29.3
== END 2022-12-22 08:57 | disposition home or self-care (01) ==
PROVIDERS: Visit Provider Nurse Practitioner Family
DX: G89.4 Chronic pain syndrome (principal); M47.816 Spondylosis without myelopathy or radiculopathy, lumbar region; M48.061 Spinal stenosis, lumbar region without neurogenic claudication; Z79.891 Long term (current) use of opiate analgesic; M54.16 Radiculopathy, lumbar region; M96.1 Postlaminectomy syndrome, not elsewhere classified; M17.12 Unilateral primary osteoarthritis, left knee; M19.041 Primary osteoarthritis, right hand; M19.042 Primary osteoarthritis, left hand
CPT/HCPCS: 99214

== ENCOUNTER → 2022-12-22 08:11 | Outpatient (BNVA) | payer OTHER, SELFPAY | PROVIDERS: Visit Provider Nurse Practitioner Family | DX: Z51.81 Encounter for therapeutic drug level monitoring (principal); M47.816 Spondylosis without myelopathy or radiculopathy, lumbar region; M48.061 Spinal stenosis, lumbar region without neurogenic claudication; M54.16 Radiculopathy, lumbar region; M96.1 Postlaminectomy syndrome, not elsewhere classified; M17.12 Unilateral primary osteoarthritis, left knee; M19.041 Primary osteoarthritis, right hand; M19.042 Primary osteoarthritis, left hand; G89.4 Chronic pain syndrome; Z79.891 Long term (current) use of opiate analgesic | CPT/HCPCS: 99212 ==

== ENCOUNTER 2023-01-19 08:05 | Outpatient (AMB) | payer OTHER, SELFPAY ==
--- NOTE | 2023-01-19 08:07 | MHC.OFFVIS ---
Intake Vital Signs 01/19/23 08:20 Height 6 ft 2 in Weight 229 lb 2 oz BMI 29.4 BP 197/72 H Blood Pressure Location Rt brachial Position Sitting Pulse 84 Pulse Source Pulse Oximeter Pulse Oximetry (%) 97 Oxygen Delivery Method Room Air Intake Visit Reasons: PILL COUNT Intake Note: Sridhar comes in today for a pill count to methadone, patient should have 30 tablets and presents with 34 tablets which he last took today 01/19/23 at 7:30am. 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 Accompanied by: Self / Same As Patient Allergies fentanyl Allergy (Intermediate, Verified 01/19/23 08:11) itching morphine [Amber] Allergy (Intermediate, Verified 01/19/23 08:11) itch Iodinated Contrast Media [IV Dye, Iodine Containing] Allergy (Mild, Verified 01/19/23 08:11) DIFFICULTY BREATHING,VOMITING amoxicillin [From Augmentin] Adverse Reaction (Intermediate, Verified 01/19/23 08:11) Diarrhea clavulanic acid [From Augmentin] Adverse Reaction (Intermediate, Verified 01/19/23 08:11) Diarrhea metformin Adverse Reaction (Intermediate, Verified 01/19/23 08:11) stomach pain HPI HPI Comments History of Present Illness Details Patient presents today for a methadone pill count. He is supposed to have #30 pills in their possession and has #34 pills. This demonstrates a responsible attitude in regards to the opioid regimen. Patient reports adequate analgesia with increased dose in Methadone, with no noted side effects. Denies any fever, sore throat, shortness of breaths, abdominal pain, constipation, sedation, nausea, dizziness, urinary retention, bladder or bowel dysfunction or saddle anesthesia. Patient continues to report low back pain with left leg radicular symptoms. His lumbar spine MRI is scheduled for 01/30/23. He reports oral steroid trial and muscle relaxant temporary alleviated his left radicular symptoms. [facility] Medical History Narcotic drug use DMII (diabetes mellitus, type 2) Elevated liver transaminase level High cholesterol Arthritis Diabetes Lumbar radiculopathy, chronic Lumbar spinal stenosis Cervical radiculopathy Lumbar post-laminectomy syndrome Surgical History H/O colonoscopy History of elbow surgery History of lumbar fusion History of cholecystectomy Family History Father Liver problem Alcoholism Substance use disorder Mother No problems noted. Brother CAD (coronary artery disease) Social History Household Members: Family Housing: House Do you presently have visiting nurse or other home services: No Alcohol intake: never Patient Tobacco Use Status: Never used Tobacco e-Cigarette/Vaping Use: Never Used Second Hand Smoke Exposure: No service: No Current occupational status: employed and disabled Current occupational exposures/hazards: No Cognitive needs: Yes (cane) Hearing needs: No Vision needs: Yes (reading glasses) Review of Systems Const All systems reviewed & are unremarkable except as noted in HPI and below Physical Exam Vital Signs: Last Vital Signs Pulse 84 01/19/23 08:20 BP 197/72 H 01/19/23 08:20 Pulse Ox 97 01/19/23 08:20 Oxygen Delivery Method Room Air 01/19/23 08:20 BMI result Body Mass Index 29.4 On exam today: Appears afebrile. Alert and oriented. Mood and affect appropriate. Follows and participates in conversation appropriately. Respiratory effort is unlabored. No cough. Able to transition from sit to stand unassisted. Able to stand and walk on toes and heels but reports unsteady gait on the left. Limited lumbar ROM due to pain. Antalgic gate, uses cane. Positive SLR with dorsiflexion on the left at L5-S1, and right in L4-L5. +Facet loading bilaterally, worse on the left. Extrem General: Yes capillary refill normal, Yes no clubbing, cyanosis or edema and Yes no calf tenderness Psych Appearance: grossly normal Mental Status: mental status grossly normal Speech and movement: Normal speech and movement present Affect: normal affect Attitude: cooperative Thought process: Normal thought process present Thought content: Normal thought content present, suicidality (none), no hallucinations and No Depressive thoughts present Insight: Good insight present (Psych) Judgement: Good judgement present (Psych) Assessment & Plan Assessment & Plan (1) Lumbar spondylosis: Code(s): M47.816 - Spondylosis without myelopathy or radiculopathy, lumbar region (2) Lumbar spinal stenosis: Code(s): M48.061 - Spinal stenosis, lumbar region without neurogenic claudication (3) Lumbar radiculopathy, chronic: Code(s): M54.16 - Radiculopathy, lumbar region (4) Lumbar post-laminectomy syndrome: Code(s): M96.1 - Postlaminectomy syndrome, not elsewhere classified (5) Opioid contract exists: Code(s): Z79.891 - 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 There is no evidence of misuse, abuse or diversion at this time. [employer] reviewed. Script sent for methadone to 10 mg BID for 30 days with advanced date of 02/03/23. Patient is aware of monitoring for side effects. Pending lumbar spine MRI to assess for neural integrity and compression scheduled on 01/30/23. Patient will return to the clinic to discuss results of the MRI findings when it is done and consider interventional therapy vs neurosurgical evaluation as indicated. Patient is aware to call if pain worsens or if he develops any red flag symptoms to seek emergency care. Patient denies any cauda equina syndrome symptoms at this time. All questions were answered and the patient is in agreement with the plan. Follow up in 4 weeks for a pill count review or sooner if needed. Medications: Refilled methadone Partial Fill upon patient request. 10 mg PO BID 30 days 60 tabs 0RF pain M47.816 - Spondylosis without myelopathy or radiculopathy, lumbar region, M48.061 - Spinal stenosis, lumbar region without neurogenic claudication, M54.16 - Radiculopathy, lumbar region, M96.1 - Postlaminectomy syndrome, not elsewhere classified Coding Level of Care Code Est Pt Level 4 (97509) Diagnoses Lumbar spondylosis M47.816 Lumbar spinal stenosis M48.061 Lumbar radiculopathy, chronic M54.16 Lumbar post-laminectomy syndrome M96.1 Opioid contract exists Z79.891 Chronic pain syndrome G89.4
[2023-01-19 08:20] VITALS: BP 197/72; PULSE 84; O2SAT 97; BMI 29.4
== END 2023-01-19 08:30 | disposition home or self-care (01) ==
PROVIDERS: PCP Nurse Practitioner Family; Visit Provider Nurse Practitioner Family
DX: G89.4 Chronic pain syndrome (principal); M47.816 Spondylosis without myelopathy or radiculopathy, lumbar region; M48.061 Spinal stenosis, lumbar region without neurogenic claudication; Z79.891 Long term (current) use of opiate analgesic; M54.16 Radiculopathy, lumbar region; M96.1 Postlaminectomy syndrome, not elsewhere classified
CPT/HCPCS: 99214

== ENCOUNTER 2023-01-19 08:05 | Outpatient (REF) | payer OTHER, SELFPAY ==
[2023-01-24 19:19] LABS: Testosterone, Total 158 ng/dL (250-1100)
== END 2023-01-19 08:06 | disposition home or self-care (01) ==
LOC: HO.LAB 08:05
PROVIDERS: Absent Provider Urology; PCP Nurse Practitioner Family; Visit Provider Nurse Practitioner Family
DX: N20.0 Calculus of kidney (principal); E29.1 Testicular hypofunction; M47.816 Spondylosis without myelopathy or radiculopathy, lumbar region; M54.16 Radiculopathy, lumbar region; M96.1 Postlaminectomy syndrome, not elsewhere classified; Z79.891 Long term (current) use of opiate analgesic
CPT/HCPCS: 36415; 84402; 84403; 99212

== ENCOUNTER 2023-01-30 07:13 | Outpatient (REF) | payer OTHER, SELFPAY ==
--- NOTE | ~2023-01-30 | MR_ITS ---
EXAMINATION: MR LUMBAR SPINE WITHOUT CONTRAST CLINICAL INFORMATION: Low back pain. Bilateral leg pain, worse on the left side. Prior surgery. COMPARISON: MRI dated 12/08/2019. TECHNIQUE: Multiplanar, multisequence imaging was obtained. FINDINGS: VERTEBRAL BODIES AND PARASPINAL STRUCTURES: An interbody prosthesis is again visible at the L5-S1 level with a solid arthrodesis. Chronic fatty marrow degenerative endplate changes again visible at this level as well. The paraspinal soft tissues appear normal. There are [id number] degenerative changes of the sacroiliac joints. There is edema in the pedicles and posterior elements at the L4-L5 level which was not present on prior imaging and may be stress-related in etiology or reactive to severity of facet arthrosis. No compression fractures are seen. A mild anterolisthesis is again evident at the L4-L5 level as well. CONUS MEDULLARIS AND CAUDA EQUINE: The distal cord, conus tip, and cauda equina nerve roots appear normal. SPINAL LEVELS: L1-L2: No central canal stenosis or foraminal narrowing. No significant disc pathology. L2-L3: Well-hydrated normal appearance of the disc without central canal stenosis or foraminal narrowing. L3-L4: Slight posterior subluxation and broad-based disc bulge with a shallow central disc protrusion and hypertrophic facet arthropathy. Disc protrusion is slightly decreased in size compared to prior imaging with diminished mass effect upon the thecal sac. Mild central canal stenosis and mild bilateral foraminal narrowing. L4-L5: Mild anterolisthesis and broad-based disc bulge noted. Previous central disc protrusion has resorbed. Infolding and thickening of the ligamentum flavum with progressed advanced facet arthropathy contributes to moderate central canal stenosis with mild foraminal narrowing. Marrow edema in the pedicles and posterior elements. L5-S1: Post interbody fusion changes with a left-sided laminectomy defect. No central canal stenosis. Mild left foraminal narrowing is stable MR/MR lumbar spine wo con IMPRESSION: 1. Previous central disc protrusion at the L4-L5 level has resorbed. Stable mild anterolisthesis and slightly worsened advanced facet arthropathy with moderate central canal stenosis and mild foraminal narrowing. New edema in the pedicles and posterior elements at this level, presumably reactive/stress-related in etiology. 2. Status post interbody fusion with a solid arthrodesis at the L5-S1 level, as on prior imaging. 3. Shallow central disc protrusion at the L3-L4 level is slightly decreased in size with decreased mass effect upon the thecal sac. Mild central canal stenosis and foraminal narrowing.
== END 2023-01-30 07:14 | disposition home or self-care (01) ==
LOC: HO.MRI 07:13
PROVIDERS: PCP Nurse Practitioner Family; Visit Provider Nurse Practitioner Family
DX: M54.16 Radiculopathy, lumbar region (principal); M48.061 Spinal stenosis, lumbar region without neurogenic claudication; M96.1 Postlaminectomy syndrome, not elsewhere classified
CPT/HCPCS: 72148

== ENCOUNTER 2023-02-01 10:26 | Outpatient (AMB) | payer OTHER, SELFPAY ==
[2023-02-01 10:28] VITALS: BP 138/70; PULSE 80; RESP 13; TEMP 36.4; O2SAT 99; BMI 29.7
--- NOTE | 2023-02-01 10:28 | A.OFFPC_ITS ---
Vital Signs 02/01/23 10:28 02/01/23 11:11 Height 6 ft 2 in Weight 231 lb BMI 29.7 BP 138/70 120/64 Blood Pressure Location Lt brachial Lt brachial Position Sitting Sitting Respiration 13 Pulse 80 Pulse Source Pulse Oximeter Temp 97.6 F Temp Source Temporal Artery Scan Pulse Oximetry (%) 99 Oxygen Delivery Method Room Air Intake Visit Reasons: Trans. from [place]-Physical Exam Intake Note: Patient states that hes been experiencing lower back pain due to cleaning out storage. Patient states that he would like to know if there is any topical testosterone cream he can get prescribed. Patient states that 3 years ago he was told that he had a nodule or something on lung and was told it wasnt serious, patient would like to get that checked out if possible. Occupational Therapy Supervisor Required: No Accompanied by: Self / Same As Patient Allergies fentanyl Allergy (Intermediate, Verified 02/01/23 10:49) itching morphine [Amber] Allergy (Intermediate, Verified 02/01/23 10:49) itch Iodinated Contrast Media [IV Dye, Iodine Containing] Allergy (Mild, Verified 02/01/23 10:49) DIFFICULTY BREATHING,VOMITING amoxicillin [From Augmentin] Adverse Reaction (Intermediate, Verified 02/01/23 10:49) Diarrhea clavulanic acid [From Augmentin] Adverse Reaction (Intermediate, Verified 02/01/23 10:49) Diarrhea metformin Adverse Reaction (Intermediate, Verified 02/01/23 10:49) stomach pain Medication List - Last Reconciled 02/01/23 by Eldon Caro CNP acetaminophen ER (Tylenol Arthritis Pain) 650 mg PO Q8H PRN 30 days blood sugar diagnostic (FreeStyle Lite Strips) As directed blood-glucose meter (FreeStyle Lite Meter kit) check blood sugars daily and pern fenofibrate 54 mg PO DAILY gabapentin 300 mg PO BID 90 days lancets (FreeStyle Lancets) As directed lidocaine 5% (Lidoderm) leave on most painful area for up to 12 hrs topical linagliptin (Tradjenta) 5 mg PO DAILY meloxicam 15 mg PO DAILY PRN 30 days methadone 10 mg PO BID 30 days omeprazole 40 mg PO DAILY 30 days sildenafil (Viagra) 50 mg PO DAILY PRN Tobacco use date assessed: 02/01/23 Dental Screening Dental Screen Date: 02/01/23 Did you have a dental visit in the last 12 months?: Yes Did you have a dental problem in the last 6 months where you did not have access to dental care?: No Was dental information given to patient?: Patient has dentist HPI HPI Comments History of Present Illness Details 62-year-old male presents for transfer o f care Her former PCP is INGE who is no longer with the practice. His last office visit was in May 2022 He has past medical history significant for type 2 diabetes, hyperlipidemia, iron deficiency anemia, GERD, IBS, BPH, ED, and chronic pain syndrome He admits to taking his medication as prescribed. He is on methadone and gabapentin for pain His last A1c was 5.3% in May 2022. His last triglyceride, total cholesterol, and LDL levels were elevated in May 2022, 286, 275, and 171 respectively Last microalbumin/creatinine ratio was 4.1 almost 4 years ago He notes that he woke up with low back pain this morning. He cleaned out his storage yesterday. He reports chronic intermittent back pain for the past 20 years. No tingling, numbness, or loss of sensation He notes that he checks his blood glucose every 2 days and his blood are usually between 119-130s He notes he consumes significant amount of white rice. He walks his dog daily for exercise He request the flu vaccine He notes that he gets an eyes exam annually. His last exam was in April: normal He is followed by [facility] GI, Urology, and pain management He was evaluated by [facility] Rheumatology and orthopedics [facility] Medical History (Updated 02/01/23 @ 11:36 by Eldon Caro CNP) Narcotic drug use DMII (diabetes mellitus, type 2) Elevated liver transaminase level High cholesterol Arthritis Diabetes Lumbar radiculopathy, chronic Lumbar spinal stenosis Cervical radiculopathy Lumbar post-laminectomy syndrome Surgical History H/O colonoscopy History of elbow surgery History of lumbar fusion History of cholecystectomy Family History Father Liver problem Alcoholism Substance use disorder Mother No problems noted. Brother CAD (coronary artery disease) Social History Household Members: Family Housing: House Do you presently have visiting nurse or other home services: No Alcohol intake: never Patient Tobacco Use Status: Former Tobacco user Cigarette Packs Per Day: 0.5 Cigarettes Per Day: 10 Years Smoked: 10 e-Cigarette/Vaping Use: Never Used Second Hand Smoke Exposure: No service: No Current occupational status: disabled Current occupational exposures/hazards: No Cognitive needs: Yes (cane) Hearing needs: No Vision needs: Yes (reading glasses) Questionnaire PHQ-9 Over the last 2 weeks, how often have you been bothered by any of the following problems? 1. Little interest or pleasure in doing things: several days 2. Feeling down, depressed, or hopeless: nearly every day 3. Trouble falling or staying asleep, or sleeping too much: nearly every day 4. Feeling tired or having little energy: more than half the days 5. Poor appetite or overeating: not at all 6. Feeling bad about yourself - or that you are a failure or have let yourself or your family down: several days 7. Trouble concentrating on things, such as reading the newspaper or watching television: more than half the days 8. Moving or speaking so slowly that other people could have noticed. Or the opposite - being so fidgety or restless that you have been moving around a lot more than usual: more than half the days 9. Thoughts that you would be better off or of hurting yourself in some way: not at all Total score: 14 Depression Screening Interpretation: Positive Depression Screening Done: Yes [id number] - PHQ-9 Billing: Yes Source: Developed by Drs. Enrico Chiang, Kassandra Neville, Farhat Pandey and colleagues, with an educational mann from [employer]. Thrive Questionnaire Date Thrive assessed: 02/01/23 I am a: Patient What is your living situation today?: I have a steady place to live Within the past 12 months, did the food you bought not last and you didn't have the money to get more?: Never true Within the past 12 months, did you worry whether your food would run out before you got money to buy more?: Never true Do you have trouble paying for medicines?: No Do you have trouble getting transportation to medical appointments?: No Do you have trouble paying your heating and electricity bill?: Yes Do you have trouble taking care of your child, family member or friend?: No Do you have trouble with day-to-day activities such as bathing, preparing meals, shopping, managing finances, etc.?: No Are you currently unemployed and looking for a job?: No Are you interested in more education?: No Please select the resources that you would like help with: Utilities Currently or been in a relationship where the following occur: no concerns reported AUDIT C Alcohol Use Questionnaire (AUDIT-C) 1. How often do you have a drink containing alcohol?: Never 3. How often do you have six or more drinks on one occasion?: Never Total Score: 0 NICOLE-7 AMB Questionnaire NICOLE-7 Date NICOLE - 7 assessed: 02/01/23 Feeling nervous, anxious, or on edge: 2 = More than half the days Not being able to stop or control worryin = Several days Worrying too much about different things: 2 = More than half the days Trouble relaxin = More than half the days Being so restless that it is hard to sit still: 2 = More than half the days Becoming easily annoyed or irritable: 1 = Several days Feeling afraid as if something awful might happen: 2 = More than half the days Total NICOLE-7 score (0-4 normal; 5-9 mild; 10-14 moderate; 15-21 severe): 12 Source: Developed by Drs. Enrico Chiang, Kassandra Neville, Farhat Pandey and colleagues, with an educational mann from [employer]. NICOLE-7 Assessment Billing NICOLE-7 Assessment Tool: NICOLE-7 Assessment 93378 Review of Systems Const Details: Const Denies chills, Denies fatigue, Denies fever(s), Denies headache(s) and Denies weakness ENT Denies dizziness and Denies headache(s) Card Denies chest pain, Denies lightheadedness, Denies dyspnea and Denies other (Palpitations) Resp Denies cough, Denies dyspnea, Denies wheezing and Denies other ( shortness of breath) GI Denies abdominal pain, Denies melena, Denies hematochezia, Denies change in bowel habits, Denies dyspepsia and Denies nausea Denies hematuria and Denies dysuria Musc Reports as per HPI Skin/Breast Denies rash, Denies unusual bruising and Denies wounds Neuro Denies abnormal gait, Denies dizziness, Denies headache(s), Denies memory loss, Denies numbness, Denies Sensory deficit (Neuro), Denies tingling and Denies weakness Psych Denies anxiety, Denies depression, Denies memory loss Endo Denies cold intolerance, Denies fatigue, Denies heat intolerance, Denies p olydipsia and Denies polyuria Aller/Immun Denies wheezing Physical exam (Primary Care) Vital Signs: Last Vital Signs Temp 97.6 F 02/01/23 10:28 Pulse 80 02/01/23 10:28 Resp 13 02/01/23 10:28 BP 120/64 02/01/23 11:11 Pulse Ox 99 02/01/23 10:28 Oxygen Delivery Method Room Air 02/01/23 10:28 BMI result Body Mass Index 29.7 Tobacco/Smoking Status: Tobacco use Status Tobacco use date assessed 02/01/23 02/01/23 10:45 Patient Tobacco Use Status Former Tobacco user 02/01/23 10:45 e-Cigarette/Vaping Use Never Used 02/01/23 10:45 PHQ-9: PHQ-9 Score PHQ-9: Total score 14 02/01/23 11:09 Depression Screening Interpretation: Positive Thrive Assessment: Date of Thrive Assessment Date Thrive assessed 02/01/23 02/01/23 10:45 Currently or been in a relationship where the following occur: no concerns reported Const Other: General: no acute distress and well developed Nutritional Appearance: well nourished Orientation/consciousness: patient oriented x3 HENMT Head: Yes normocephalic and Yes atraumatic Eyes General: appearance normal, both eyes and all related structures Pupils: Equal, round and reactive pupils present EOM: EOMs intact bilaterally Resp Effort & Inspection: normal respiratory effort Auscultation: clear to auscultation bilaterally Cardio Rate: regular rate Rhythm: regular rhythm Heart sounds: S1 normal heart sound present, S2 normal heart sound present, no gallops, no murmurs and no rubs GI Palpation (GI): No Abdominal aortic bruit present, Soft to palpation, nontender, No hepatosplenomegaly present and No Rebound tenderness present Auscultation: normal bowel sounds General: Yes no CVA tenderness Back/Spine/Pelvis Back: no CVA tenderness Cervical Spine: cervical ROM normal and No Cervical spine tenderness Thoracic/Lumbar Spine: thoraco-lumbar ROM normal, No pain with thoraco-lumbar ROM, No thoracic spinal tenderness and No lumbar spinal tenderness Extrem General: Yes normal to inspection, No edema and No calf tenderness Skin General: warm and dry. Normal skin color. Normal skin turgor Neuro General: patient oriented x3, gait normal and no focal neuro deficit Cranial nerves: Yes Equal, round and reactive pupils present Cognition (Neuro): normal cognition Gait exam (Neuro): Normal gait present Sensory Exam: No Sensory deficit (Neuro) Psych Appearance: grossly normal Affect: normal affect Attitude: cooperative Thought process: Normal thought process present Office Procedures Flu Questionnaire Does the patient have a severe egg allergy?: No Does the patient have severe life threatening allergies?: No Does the patient have a fever or illness today?: No Has the patient ever had Guillain-Kosse Syndrome?: No Has the patient ever had any past reaction to a flu shot?: No Results AMB Hemoglobin A1c AMB Hemoglobin A1c 6.5 % Last Edit by Veronica Kingsley CMA on 02/01/23 11:10 Immunizations flu vacc [id number] 6mos up(PF) 60 mcg(15 mcgx4)/0.5 mL IM syringe Performing Provider: Eldon Caro CNP Performing Location: [facility] [place] [facility] Administered by: Alexa Garza RN on 02/01/23 11:23 Dose Route Admin Location Dispensed Lot Number Expiration Date [employer] [place] 0.5 mL IM Left Deltoid 0.5 mL [id number] 09/16/23 [id number] [employer] [place] VIS Given Date VIS Provided VIS Publication Date 02/01/23 Single Vaccine 20 Eligibility Eligibility Date Funding Source Not [facility] Eligible 02/01/23 Private Results Reviewed Results Reviewed: Laboratory Last Values Hgb A1c (Clinic) 6.5 % (4.0-6.0) H 02/01/23 11:09 Assessment and Plan Assessment & Plan (1) DMII (diabetes mellitus, type 2): Code(s): E11.9 - Type 2 diabetes mellitus without complications Plan: A1c is 6.5% today, within goal of less than 7.0%. Previous A1c was 5.3% Continue to take Tradjenta as prescribed ADA diet and routine exercise encouraged. Advised to limit rice, bread, pasta, and potato consumption LDL was 171 in May. Will recheck LDL level Will also recheck urine microalbumin/creatinine ratio Follow-up with Ophthalmology for annual exam as planned Will recheck A1c in 3 months Follow-up in 1 month for complete physical exam Return sooner with symptoms or concerns Verbalized understanding and agreed with treatment plan. Flu vaccine administered by the nurse today. (2) Hyperlipidemia: Code(s): E78.5 - Hyperlipidemia, unspecified Plan: His last triglyceride, total cholesterol, and LDL levels were elevated in May 2022, 286, 275, and 171 respectively Continue to take fenofibrate as prescribed Advised to limit foods high in saturated fat and avoid foods high trans fat Routine exercise encouraged Will check lipid levels. Advised to fast for 10-12 hours, may drink water only, and get blood work done before next visit Follow-up in 1 month for an extended physical exam (3) Iron deficiency anemia: Code(s): D50.9 - Iron deficiency anemia, unspecified Plan: Recent H&H in August were slightly low Will check CBC and make changes as needed (4) Low back pain: Code(s): M54.50 - Low back pain, unspecified Plan: Reports low back pain upon waking up this morning History of chronic low back pain Continue current treatment regimen Warm/cold compresses encouraged Return with worsening or new symptoms Verbalized understanding and agreed with treatment plan. (5) Laboratory tests ordered as part of a complete physical exam (CPE): Code(s): Z00.00 - Encounter for general adult medical examination without abnormal findings Plan: Fasting labs ordered as part of a complete physical exam. Advised to fast for at least 10 hours before getting labs drawn. May drink water Verbalized understanding and agreed with treatment plan. Orders: Orders Comprehensive [place]. Panel Fast Today D50.9 - Iron deficiency anemia, unspecified, E11.9 - Type 2 diabetes mellitus without complications, E78.5 - Hyperlipidemia, unspecified, Z00.00 - Encounter for general adult medical examination without abnormal findings Lipid Panel Today D50.9 - Iron deficiency anemia, unspecified, E11.9 - Type 2 diabetes mellitus without complications, E78.5 - Hyperlipidemia, unspecified, Z00.00 - Encounter for general adult medical examination without abnormal findings AMB Hemoglobin A1c Today Z13.9 - Encounter for screening, unspecified Complete Blood Count Auto Diff Today D50.9 - Iron deficiency anemia, unspecified, E11.9 - Type 2 diabetes mellitus without complications, E78.5 - Hyperlipidemia, unspecified, Z00.00 - Encounter for general adult medical examination without abnormal findings TSH reflex Free T4 Today Z00.00 - Encounter for general adult medical examination without abnormal findings Microalbumin, Random (w Creat) Today E11.9 - Type 2 diabetes mellitus without complications Influenza [id number] Immunization Today Z23 - Encounter for immunization Coding Level of Care Code Est Pt Level 4 (86540) Diagnoses DMII (diabetes mellitus, type 2) E11.9 Hyperlipidemia E78.5 Iron deficiency anemia D50.9 Low back pain M54.50 Laboratory tests ordered as part of a complete physical exam (CPE) Z00.00 Additional Codes NICOLE-7 Assessment Billing - NICOLE-7 Assessment Tool: NICOLE-7 Assessment 31622 ([id number])
[2023-02-01 11:11] VITALS: BP 120/64
== END 2023-02-01 11:34 | disposition home or self-care (01) ==
PROVIDERS: PCP Nurse Practitioner Family; Visit Provider Nurse Practitioner Family
DX: Z00.00 Encounter for general adult medical examination without abnormal findings (principal); E11.9 Type 2 diabetes mellitus without complications; E78.5 Hyperlipidemia, unspecified; D50.9 Iron deficiency anemia, unspecified; M54.50 Low back pain, unspecified; Z23 Encounter for immunization
CPT/HCPCS: 83036; 90471; 90686; 99396

== ENCOUNTER 2023-02-23 08:05 | Outpatient (AMB) | payer OTHER, SELFPAY ==
--- NOTE | 2023-02-23 08:11 | MHC.OFFVIS ---
Intake Vital Signs 02/23/23 08:24 Height 6 ft 2 in Weight 231 lb 6 oz BMI 29.7 BP 138/70 Blood Pressure Location Lt brachial Position Sitting Pulse 88 Pulse Source Pulse Oximeter Pulse Oximetry (%) 97 Oxygen Delivery Method Room Air Intake Visit Reasons: Medication Count/confirmed Intake Note: Sridhar comes in today for a pill count to methadone, patient should have 50 tablets and presents with 53 tablets which he last took today 02/23/23 at 7:15am. Pain today 10/26 Pet Trainer Required: No Accompanied by: Self / Same As Patient Allergies fentanyl Allergy (Intermediate, Verified 02/23/23 08:25) itching morphine [Amber] Allergy (Intermediate, Verified 02/23/23 08:25) itch Iodinated Contrast Media [IV Dye, Iodine Containing] Allergy (Mild, Verified 02/23/23 08:25) DIFFICULTY BREATHING,VOMITING amoxicillin [From Augmentin] Adverse Reaction (Intermediate, Verified 02/23/23 08:25) Diarrhea clavulanic acid [From Augmentin] Adverse Reaction (Intermediate, Verified 02/23/23 08:25) Diarrhea metformin Adverse Reaction (Intermediate, Verified 02/23/23 08:25) stomach pain HPI HPI Comments History of Present Illness Details Patient presents today for a methadone pill count. He is supposed to have #50 pills in their possession and has #53 pills. This demonstrates a responsible attitude in regards to the opioid regimen. Patient reports mild to moderate analgesia with current dose of Methadone which was increased 2 months ago, with no noted side effects. Denies any fever, sore throat, shortness of breaths, abdominal pain, constipation, sedation, nausea, dizziness, urinary retention, bladder or bowel dysfunction or saddle anesthesia. Patient continues to report low back pain with left leg radicular symptoms and occasionally into his right lower leg. Pain is described as constant and shooting down into his left leg laterally and posteriorly at his calf and into his left ankle and 3 outer toes with numbness and tingling. Recent lumbar spine MRI completed on 01/30/23 was reviewed with patient today and is noted below. Caudal ERNST with catheter was attempted in October 2021 when patient was brought into OR and procedure was aborted. Patient is uneasy of proceeding with injections given the previous experience. He requests referral to [facility] for minimally invasive surgical options. He has been experiencing spinal-stenosis and post-laminectomy syndrome pain for many years. Patient is not interested in Spinal Cord Stimulation trial which was discussed with him on several occasions. [facility] Medical History Narcotic drug use DMII (diabetes mellitus, type 2) Elevated liver transaminase level High cholesterol Arthritis Diabetes Lumbar radiculopathy, chronic Lumbar spinal stenosis Cervical radiculopathy Lumbar post-laminectomy syndrome Surgical History H/O colonoscopy History of elbow surgery History of lumbar fusion History of cholecystectomy Family History Father Liver problem Alcoholism Substance use disorder Mother No problems noted. Brother CAD (coronary artery disease) Social History Household Members: Family Housing: House Do you presently have visiting nurse or other home services: No Alcohol intake: never Patient Tobacco Use Status: Former Tobacco user Cigarette Packs Per Day: 0.5 Cigarettes Per Day: 10 Years Smoked: 10 e-Cigarette/Vaping Use: Never Used Second Hand Smoke Exposure: No service: No Current occupational status: disabled Current occupational exposures/hazards: No Cognitive needs: Yes (cane) Hearing needs: No Vision needs: Yes (reading glasses) Review of Systems Const All systems reviewed & are unremarkable except as noted in HPI and below Physical Exam Vital Signs: Last Vital Signs Pulse 88 02/23/23 08:24 BP 138/70 02/23/23 08:24 Pulse Ox 97 02/23/23 08:24 Oxygen Delivery Method Room Air 02/23/23 08:24 BMI result Body Mass Index 29.7 On exam today: Appears afebrile. Alert and oriented. Mood and affect appropriate. Follows and participates in conversation appropriately. Respiratory effort is unlabored. No cough. Able to transition from sit to stand unassisted. Able to stand and walk on toes and heels but reports unsteady gait on the left. Limited lumbar ROM due to pain. Antalgic gate, uses cane. Positive SLR with dorsiflexion on the left at L5-S1, and right in L4-L5. +Facet loading bilaterally, worse on the left. Back/Spine/Pelvis Cervical Spine: cervical ROM normal and No Cervical spine tenderness Thoracic/Lumbar Spine: thoracic and lumbar spine normal to inspection, Thoracic/lumbar spine scar(s), Lasegue's sign positive localized, pain with thoraco-lumbar ROM, paraspinal muscle tenderness, thoraco-lumbar ROM limited, No thoracic spinal tenderness, lumbar spinal tenderness (L4-S1) and straight leg raise positive bilateral at 30 degrees Pelvis: buttock tenderness on the left Sacroiliac joints: bilaterally nontender Extrem General: Yes capillary refill normal, Yes no clubbing, cyanosis or edema and Yes no calf tenderness Psych Appearance: grossly normal Mental Status: mental status grossly normal Speech and movement: Normal speech and movement present Affect: normal affect Attitude: cooperative Thought process: Normal thought process present Thought content: Normal thought content present, suicidality (none), no hallucinations and No Depressive thoughts present Insight: Good insight present (Psych) Judgement: Good judgement present (Psych) Results Reviewed Results Reviewed: MR LUMBAR SPINE WITHOUT CONTRAST 01/30/23 CLINICAL INFORMATION: Low back pain. Bilateral leg pain, worse on the left side. Prior surgery. COMPARISON: MRI dated 12/08/2019. TECHNIQUE: Multiplanar, multisequence imaging was obtained. FINDINGS: VERTEBRAL BODIES AND PARASPINAL STRUCTURES: An interbody prosthesis is again visible at the L5-S1 level with a solid arthrodesis. Chronic fatty marrow degenerative endplate changes again visible at this level as well. The paraspinal soft tissues appear normal. There are [id number] degenerative changes of the sacroiliac joints. There is edema in the pedicles and posterior elements at the L4-L5 level which was not present on prior imaging and may be stress-related in etiology or reactive to severity of facet arthrosis. No compression fractures are seen. A mild anterolisthesis is again evident at the L4-L5 level as well. CONUS MEDULLARIS AND CAUDA EQUINE: The distal cord, conus tip, and cauda equina nerve roots appear normal. SPINAL LEVELS: L1-L2: No central canal stenosis or foraminal narrowing. No significant disc pathology. L2-L3: Well-hydrated normal appearance of the disc without central canal stenosis or foraminal narrowing. L3-L4: Slight posterior subluxation and broad-based disc bulge with a shallow central disc protrusion and hypertrophic facet arthropathy. Disc protrusion is slightly decreased in size compared to prior imaging with diminished mass effect upon the thecal sac. Mild central canal stenosis and mild bilateral foraminal narrowing. L4-L5: Mild anterolisthesis and broad-based disc bulge noted. Previous central disc protrusion has resorbed. Infolding and thickening of the ligamentum flavum with progressed advanced facet arthropathy contributes to moderate central canal stenosis with mild foraminal narrowing. Marrow edema in the pedicles and posterior elements. L5-S1: Post interbody fusion changes with a left-sided laminectomy defect. No central canal stenosis. Mild left foraminal narrowing is stable IMPRESSION: 1. Previous central disc protrusion at the L4-L5 level has resorbed. Stable mild anterolisthesis and slightly worsened advanced facet arthropathy with moderate central canal stenosis and mild foraminal narrowing. New edema in the pedicles and posterior elements at this level, presumably reactive/stress-related in etiology. 2. Status post interbody fusion with a solid arthrodesis at the L5-S1 level, as on prior imaging. 3. Shallow central disc protrusion at the L3-L4 level is slightly decreased in size with decreased mass effect upon the thecal sac. Mild central canal stenosis and foraminal narrowing. Assessment & Plan Assessment & Plan (1) Lumbar spondylosis: Code(s): M47.816 - Spondylosis without myelopathy or radiculopathy, lumbar region (2) Lumbar spinal stenosis: Code(s): M48.061 - Spinal stenosis, lumbar region without neurogenic claudication (3) Lumbar radiculopathy, chronic: Code(s): M54.16 - Radiculopathy, lumbar region (4) Lumbar post-laminectomy syndrome: Code(s): M96.1 - Postlaminectomy syndrome, not elsewhere classified (5) Opioid contract exists: Code(s): Z79.891 - prison (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 There is no evidence of misuse, abuse or diversion at this time. BeckonCallt reviewed. Script sent for methadone to 10 mg BID for 30 days with advanced date of 03/20/23. Patient is aware of monitoring for side effects. Lumbar spine MRI results were discussed with patient today. Referral placed to [facility] per patient request. All questions were answered and the patient is in agreement with the plan. Follow up in 4 weeks for a pill count review or sooner if needed. Orders: Referrals Neurosurgery Referral M48.061 - Spinal stenosis, lumbar region without neurogenic claudication, M54.16 - Radiculopathy, lumbar region, M54.50 - Low back pain, unspecified Medications: Refilled methadone Partial Fill upon patient request. 10 mg PO BID 30 days 60 tabs 0RF pain M47.816 - Spondylosis without myelopathy or radiculopathy, lumbar region, M48.061 - Spinal stenosis, lumbar region without neurogenic claudication, M54.16 - Radiculopathy, lumbar region, M96.1 - Postlaminectomy syndrome, not elsewhere classified Coding Level of Care Code Est Pt Level 4 (48878) Diagnoses Lumbar spondylosis M47.816 Lumbar spinal stenosis M48.061 Lumbar radiculopathy, chronic M54.16 Lumbar post-laminectomy syndrome M96.1 Opioid contract exists Z79.891 Chronic pain syndrome G89.4
[2023-02-23 08:24] VITALS: BP 138/70; PULSE 88; O2SAT 97; BMI 29.7
== END 2023-02-23 08:45 | disposition home or self-care (01) ==
PROVIDERS: PCP Nurse Practitioner Family; Visit Provider Nurse Practitioner Family
DX: G89.4 Chronic pain syndrome (principal); M47.816 Spondylosis without myelopathy or radiculopathy, lumbar region; M48.061 Spinal stenosis, lumbar region without neurogenic claudication; Z79.891 Long term (current) use of opiate analgesic; M54.16 Radiculopathy, lumbar region; M96.1 Postlaminectomy syndrome, not elsewhere classified
CPT/HCPCS: 99214

== ENCOUNTER → 2023-02-23 08:05 | Outpatient (BNVA) | payer OTHER, SELFPAY | PROVIDERS: PCP Nurse Practitioner Family; Visit Provider Nurse Practitioner Family | DX: Z51.81 Encounter for therapeutic drug level monitoring (principal); M47.816 Spondylosis without myelopathy or radiculopathy, lumbar region; M48.061 Spinal stenosis, lumbar region without neurogenic claudication; M54.16 Radiculopathy, lumbar region; M96.1 Postlaminectomy syndrome, not elsewhere classified; G89.4 Chronic pain syndrome; Z79.891 Long term (current) use of opiate analgesic | CPT/HCPCS: 99212 ==

== ENCOUNTER 2023-02-26 08:08 | Outpatient (AMB) | payer OTHER, SELFPAY ==
--- NOTE | 2023-02-26 08:13 | A.OFFVIS_ITS ---
Intake Intake Visit Reasons: 4m/labs Intake Note: Patient presents today for a follow-up on Labs Results: medications: Sildenafil Blood thinners: none Lamp Cleaner Required: No Accompanied by: Self / Same As Patient Allergies fentanyl Allergy (Intermediate, Verified 02/23/23 08:25) itching morphine [Amber] Allergy (Intermediate, Verified 02/23/23 08:25) itch Iodinated Contrast Media [IV Dye, Iodine Containing] Allergy (Mild, Verified 02/23/23 08:25) DIFFICULTY BREATHING,VOMITING amoxicillin [From Augmentin] Adverse Reaction (Intermediate, Verified 02/23/23 08:25) Diarrhea clavulanic acid [From Augmentin] Adverse Reaction (Intermediate, Verified 02/23/23 08:25) Diarrhea metformin Adverse Reaction (Intermediate, Verified 02/23/23 08:25) stomach pain Medication List - Last Reconciled 02/26/23 by Arya Lopez MD acetaminophen ER (Tylenol Arthritis Pain) 650 mg PO Q8H PRN 30 days blood sugar diagnostic (FreeStyle Lite Strips) As directed blood-glucose meter (FreeStyle Lite Meter kit) check blood sugars daily and pern fenofibrate 54 mg PO DAILY gabapentin 300 mg PO BID 90 days lancets (FreeStyle Lancets) As directed lidocaine 5% (Lidoderm) leave on most painful area for up to 12 hrs topical linagliptin (Tradjenta) 5 mg PO DAILY meloxicam 15 mg PO DAILY PRN 30 days methadone 10 mg PO BID 30 days omeprazole 40 mg PO DAILY 30 days sildenafil (Viagra) 50 mg PO DAILY PRN testosterone cypionate (Depo-Testosterone) 200 mg IM Q2W 4 weeks HPI HPI Comments History of Present Illness Details Sridhar is a 62-year-old male who presents today to the office for follow up to review lab results, testosterone level. Sridhar is a 62 year old male with complaint of difficulty maintaining and erection.? IIEF - 5 score 8. in a monagamous relationship, able to achieve an erection for penetration, --complains of early ejaculation then so metimes able to get an erection sometimes not successful --states is causing him to be anxious ab out the situation, states order some meds online --(testosterone boosters and another med to help erections which seemed to help) He denies Urgency or obstructive voiding symptoms, denies dysuria CoMorbidities- Diabetes, h/o narcotic use on methadone I reviewed Repeat Testosterone levels: 01/19/23-- TT- 158, FT- 25 Review of chart: He was initially evaluated on 05/01/2022 as a new patient for erectile dysfunction and complaints of premature ejaculation. He was prescribed Paxil 20 mg and Viagra 50 mg to use prior to intercourse prn. He developed nausea secondary to taking Paxil 20 mg so is not taking this med. [id number]/20-[id number] --left kidney stone 5 mm?? renal US results from 10/19/22 which revealed 6 mm non obstructive left lower pole kidney stone. Review of labs: 10/19/2022 revealed PSA?0.61, total testosterone 215 which is low, and free testosterone 40.99 which is low normal. he is on methadone.? --trial of paxil 20 mg daily-pt stopped Viagra 50 (1/2-1 tab prn 30 minutes prior to intercourse) Plan: Failed Testosterone 20.25 mg per 1.25 gram pump Depo Testosterone ordered. Viagra prn. Follow up in 4 months to recheck testosterone level. left kidney stone, FU renal US [facility] Medical History Narcotic drug use DMII (diabetes mellitus, type 2) Elevated liver transaminase level High cholesterol Arthritis Diabetes Lumbar radiculopathy, chronic Lumbar spinal stenosis Cervical radiculopathy Lumbar post-laminectomy syndrome Surgical History H/O colonoscopy History of elbow surgery History of lumbar fusion History of cholecystectomy Family History Father Liver problem Alcoholism Substance use disorder Mother No problems noted. Brother CAD (coronary artery disease) Social History Household Members: Family Housing: House Do you presently have visiting nurse or other home services: No Alcohol intake: never Patient Tobacco Use Status: Former Tobacco user Cigarette Packs Per Day: 0.5 Cigarettes Per Day: 10 Years Smoked: 10 e-Cigarette/Vaping Use: Never Used Second Hand Smoke Exposure: No service: No Current occupational status: disabled Current occupational exposures/hazards: No Cognitive needs: Yes (cane) Hearing needs: No Vision needs: Yes (reading glasses) Review of Systems Const All systems reviewed & are unremarkable except as noted in HPI and below Reports no additional complaints Eyes Reports no additional complaints ENT Denies neck pain Card Denies leg edema Resp Denies cough GI Denies constipation Reports urinary incontinence Musc Reports no additional complaints and Denies neck pain Skin/Breast Denies rash and Denies unusual bruising Neuro Reports no additional complaints Psych Reports no additional complaints Endo Reports no additional complaints Barrie/Lymph Reports no additional complaints Aller/Immun Reports no additional complaints Assessment & Plan Assessment & Plan (1) Kidney stone on left side: Code(s): N20.0 - Calculus of kidney (2) Hypogonadism in male: Code(s): E29.1 - Testicular hypofunction (3) Erectile dysfunction: Code(s): N52.9 - Male erectile dysfunction, unspecified Plan Failed Testosterone 20.25 mg per 1.25 gram pump Depo Testosterone ordered. Viagra prn. Follow up in 4 months to recheck testosterone level. left kidney stone, FU renal US Orders: Orders Testosterone, Free/Total 3 Months E29.1 - Testicular hypofunction, N52.9 - Male erectile dysfunction, unspecified US renal BI 3 Months N20.0 - Calculus of kidney Medications: New testosterone cypionate (Depo-Testosterone) 200 mg IM Q2W 2 mL 0RF 4 weeks Patient Instructions: The patient had an opportunity to ask questions regarding treatment plan. All questions were answered. Imaging, Laboratory studies and physical exam results were discussed and reviewed in detail. No major barriers to understanding were identified. The patient expressed understanding and agreement with the above treatment plan. The patient is aware they should contact our office by phone for worsening of their current condition or the appearance of new symptoms. Compliance is encouraged with any medications and followup testing that is ordered. It is a privilege to be allowed the opportunity to participate in the urologic care of your patient. If you have any questions or concerns regarding treatment for the above conditions please do not hesitate to contact me. The office telephone contact is [phone]. This note is constructed in part using voice recognition software. While every effort has been made to ensure accuracy clinical science consultant errors may have been included. Yours sincerely, Arya Lopez MD Coding Level of Care Code Est Pt Level 4 (64821) Diagnoses Kidney stone on left side N20.0 Hypogonadism in male E29.1 Erectile dysfunction N52.9
== END 2023-02-26 09:01 | disposition home or self-care (01) ==
PROVIDERS: PCP Hospitalist; Visit Provider Urology
DX: N20.0 Calculus of kidney (principal); E29.1 Testicular hypofunction; N52.9 Male erectile dysfunction, unspecified
CPT/HCPCS: 99214

== ENCOUNTER → 2023-02-26 08:08 | Outpatient (BNVA) | payer OTHER, SELFPAY | PROVIDERS: PCP Hospitalist; Visit Provider Urology | DX: N20.0 Calculus of kidney (principal); N52.9 Male erectile dysfunction, unspecified; E29.1 Testicular hypofunction | CPT/HCPCS: 99212 ==

== ENCOUNTER 2023-03-09 06:08 | Outpatient (REF) | payer OTHER, SELFPAY ==
[2023-03-09 06:33] LABS: MANUAL DIFF FLAG NO
[2023-03-09 07:13] LABS: Basophils Percent Auto 0.7 % (0-2); Eosinophils Absolute Auto 0.2 X10*3/uL (0.0-0.4); Eosinophils Percent Auto 3.6 % (0-4); Hematocrit 43.7 % (42.0-52.0); Hemoglobin 14.2 g/dl (14.0-18.0); Imm Gran Abs Auto 0.02 X10*3/uL (0.00-0.03); Imm Gran Pct Auto 0.4 % (0.0-0.4); Lymphocytes Absolute Auto 1.9 X10*3/uL (1.2-4.9); Lymphocytes Percent Auto 34.1 % (20-40); Mean Corpuscular HGB Conc 32.5 g/dl (31.0-36.0); Mean Corpuscular Hemoglobin 28.7 pg (27.0-33.0); Mean Corpuscular Volume 88.3 fL (80.0-98.0); Mean Platelet Volume 10.9 fL (9.4-12.4); Monocytes Absolute Auto 0.5 X10*3/uL (0.1-1.2); Monocytes Percent Auto 8.6 % (2-11); Neutrophils Absolute Auto 2.9 x10*3/uL (2.0-8.3); Neutrophils Percent Auto 52.6 % (45-73); Platelet Count 209 X10*3/uL (160-400); Red Blood Count 4.95 X10*6/uL (4.60-5.80); Red Cell Distribution Width 12.5 % (11.0-16.0); White Blood Count 5.5 X10*3/uL (4.8-10.8)
[2023-03-09 07:48] LABS: Alanine Aminotransferase 35 U/L (0-40); Albumin Level 4.5 g/dL (3.5-5.0); Alkaline Phosphatase 73 U/L (39-117); Anion Gap 12 (12-20); Aspartate Amino Transferase 23 U/L (5-37); Bilirubin Total 0.4 mg/dL (0.0-1.0); Blood Urea Nitrogen 19 mg/dL (9-16); Calcium 9.8 mg/dL (8.4-10.2); Carbon Dioxide 28 mmol/L (22-29); Chloride 102 mmol/L (96-108); Cholesterol 254 mg/dL (<200); Estimated Glomerular Filt Rate > 60; Glucose Fasting 131 mg/dL (60-99); HDL Cholesterol 50 mg/dL (>40); LDL Cholesterol Calculated 153 mg/dL (<100); Potassium 4.3 mmol/L (3.3-5.1); Sodium 138 mmol/L (135-145); Total Protein 7.7 g/dL (6.5-8.0); Triglycerides 259 mg/dL (<150)
[2023-03-09 08:06] LABS: TSH reflex Free T4 1.05 uIU/mL (0.32-4.0)
[2023-03-09 09:35] LABS: Creatinine Urine 73.27 mg/dL; Microalbumin Urine < 5.0 mg/L
== END 2023-03-09 06:09 | disposition home or self-care (01) ==
LOC: HO.LAB 06:08
PROVIDERS: PCP Nurse Practitioner Family; Visit Provider Nurse Practitioner Family
DX: Z00.00 Encounter for general adult medical examination without abnormal findings (principal); E78.5 Hyperlipidemia, unspecified; E11.9 Type 2 diabetes mellitus without complications; D50.9 Iron deficiency anemia, unspecified
CPT/HCPCS: 36415; 80053; 80061; 82043; 82570; 84443; 85025

== ENCOUNTER 2023-03-23 09:20 | Outpatient (AMB) | payer OTHER, SELFPAY ==
[2023-03-23 09:23] VITALS: BP 124/70; PULSE 88; RESP 13; TEMP 36.6; O2SAT 98; BMI 29.5
--- NOTE | 2023-03-23 09:23 | MHC.PC.OV ---
Vital Signs 03/23/23 09:23 Height 6 ft 2 in Weight 229 lb 8 oz BMI 29.5 BP 124/70 Blood Pressure Location Rt brachial Position Sitting Respiration 13 Pulse 88 Pulse Source Pulse Oximeter Temp 97.9 F Temp Source Temporal Artery Scan Pulse Oximetry (%) 98 Oxygen Delivery Method Room Air Intake Visit Reasons: CPE Intake Note: Patient states he needs refill on lancets and test strips. 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 Accompanied by: Self / Same As Patient Allergies fentanyl Allergy (Intermediate, Verified 03/23/23 09:42) itching morphine [Amber] Allergy (Intermediate, Verified 03/23/23 09:42) itch Iodinated Contrast Media [IV Dye, Iodine Containing] Allergy (Mild, Verified 03/23/23 09:42) DIFFICULTY BREATHING,VOMITING amoxicillin [From Augmentin] Adverse Reaction (Intermediate, Verified 03/23/23 09:42) Diarrhea clavulanic acid [From Augmentin] Adverse Reaction (Intermediate, Verified 03/23/23 09:42) Diarrhea metformin Adverse Reaction (Intermediate, Verified 03/23/23 09:42) stomach pain Medication List - Last Reconciled 03/23/23 by Eldon Caro CNP acetaminophen ER (Tylenol Arthritis Pain) 650 mg PO Q8H PRN 30 days blood sugar diagnostic (FreeStyle Lite Strips) As directed blood-glucose meter (FreeStyle Lite Meter kit) check blood sugars daily and pern fenofibrate 54 mg PO DAILY gabapentin 300 mg PO BID 90 days lancets (FreeStyle Lancets) As directed lidocaine 5% (Lidoderm) leave on most painful area for up to 12 hrs topical linagliptin (Tradjenta) 5 mg PO DAILY meloxicam 15 mg PO DAILY PRN 30 days methadone 10 mg PO BID 30 days omeprazole 40 mg PO DAILY 30 days sildenafil (Viagra) 50 mg PO DAILY PRN testosterone enanthate (Xyosted) 100 mg subcut QWEEK Tobacco use date assessed: 03/23/23 Dental Screening Dental Screen Date: 03/23/23 Did you have a dental visit in the last 12 months?: Yes Did you have a dental problem in the last 6 months where you did not have access to dental care?: No Was dental information given to patient?: Patient has dentist HPI HPI Comments History of Present Illness Details 62-year-old male presents for an extended physical exam He has past medical history significant for type 2 diabetes, hyperlipidemia, iron deficiency anemia, GERD, IBS, BPH, ED, and chronic pain syndrome He admits to taking his medication as prescribed, except for fenofibrate which he does not take regularly He reports continued chronic low back pain and left lower extremity pain. He is on Tylenol, gabapentin, meloxicam, methadone, and lidocaine patch. He is followed by [facility], Urology, and pain management He sates his last colonoscopy was with [facility] years ago He notes that his up-to-date on the flu and COVID vaccines [facility] Medical History Narcotic drug use DMII (diabetes mellitus, type 2) Elevated liver transaminase level High cholesterol Arthritis Diabetes Lumbar radiculopathy, chronic Lumbar spinal stenosis Cervical radiculopathy Lumbar post-laminectomy syndrome Surgical History H/O colonoscopy History of elbow surgery History of lumbar fusion History of cholecystectomy Family History Father Liver problem Alcoholism Substance use disorder Mother No problems noted. Brother CAD (coronary artery disease) Social History Household Members: Family Housing: House Do you presently have visiting nurse or other home services: No Alcohol intake: never Patient Tobacco Use Status: Former Tobacco user Cigarette Packs Per Day: 0.5 Cigarettes Per Day: 10 Years Smoked: 10 e-Cigarette/Vaping Use: Never Used Second Hand Smoke Exposure: No service: No Current occupational status: disabled Current occupational exposures/hazards: No Cognitive needs: Yes (cane) Hearing needs: No Vision needs: Yes (reading glasses) Questionnaire PHQ-9 Over the last 2 weeks, how often have you been bothered by any of the following problems? 1. Little interest or pleasure in doing things: several days 2. Feeling down, depressed, or hopeless: several days 3. Trouble falling or staying asleep, or sleeping too much: several days 4. Feeling tired or having little energy: several days 5. Poor appetite or overeating: several days 6. Feeling bad about yourself - or that you are a failure or have let yourself or your family down: several days 7. Trouble concentrating on things, such as reading the newspaper or watching television: several days 8. Moving or speaking so slowly that other people could have noticed. Or the opposite - being so fidgety or restless that you have been moving around a lot more than usual: several days 9. Thoughts that you would be better off or of hurting yourself in some way: not at all Total score: 8 Depression Screening Interpretation: Positive Depression Screening Done: Yes 20130 - PHQ-9 Billing: Yes Source: Developed by Drs. Enrico Chiang, Kassandra Neville, Farhat Pandey and colleagues, with an educational mann from [employer]. Thrive Questionnaire Date Thrive assessed: 03/23/23 I am a: Patient What is your living situation today?: I have a steady place to live Within the past 12 months, did the food you bought not last and you didn't have the money to get more?: Sometimes True Within the past 12 months, did you worry whether your food would run out before you got money to buy more?: Sometimes True Do you have trouble paying for medicines?: No Do you have trouble getting transportation to medical appointments?: No Do you have trouble paying your heating and electricity bill?: Yes Do you have trouble taking care of your child, family member or friend?: No Do you have trouble with day-to-day activities such as bathing, preparing meals, shopping, managing finances, etc.?: No Are you currently unemployed and looking for a job?: No Are you interested in more education?: No Please select the resources that you would like help with: Utilities Currently or been in a relationship where the following occur: no concerns reported AUDIT C Alcohol Use Questionnaire (AUDIT-C) 1. How often do you have a drink containing alcohol?: Never 3. How often do you have six or more drinks on one occasion?: Never Total Score: 0 NICOLE-7 AMB Questionnaire NICOLE-7 Date NICOLE - 7 assessed: 03/23/23 Feeling nervous, anxious, or on edge: 1 = Several days Not being able to stop or control worryin = Several days Worrying too much about different things: 1 = Several days Trouble relaxin = Several days Being so restless that it is hard to sit still: 1 = Several days Becoming easily annoyed or irritable: 1 = Several days Feeling afraid as if something awful might happen: 1 = Several days Total NICOLE-7 score (0-4 normal; 5-9 mild; 10-14 moderate; 15-21 severe): 7 Source: Developed by Drs. Enrico Chiang, Kassandra Neville, Farhat Pandey and colleagues, with an educational mann from [employer]. NICOLE-7 Assessment Billing NICOLE-7 Assessment Tool: NICOLE-7 Assessment 16847 Review of Systems Const Details: Denies chills, Denies fatigue, Denies fever(s), Denies headache(s) and Denies weakness HEENT Denies change in vision, Denies dizziness, Denies headache(s), Denies hearing loss, Denies nasal congestion, Denies sinus pain, Denies sinus pressure and Denies sore throat Card Denies chest pain, Denies lightheadedness, Denies dyspnea and Denies other (palpitations) Resp Denies cough, Denies dyspnea and Denies wheezing GI Denies abdominal pain, Denies melena, Denies hematochezia, Denies change in bowel habits, Denies dyspepsia and Denies nausea Denies hematuria and Denies dysuria Musc Reports as per HPI Skin/Breast Denies rash, Denies unusual bruising and Denies wounds Neuro Denies abnormal gait, Denies dizziness, Denies headache(s), Denies memory loss, Denies numbness, Denies Sensory deficit (Neuro), Denies tingling and Denies weakness Psych Denies anxiety, Denies depression and Denies memory loss Endo Denies cold intolerance, Denies fatigue, Denies heat intolerance, Denies polydipsia and Denies polyuria Barrie/Lymph Denies easy bleeding and Denies easy bruising Aller/Immun Denies wheezing Physical exam (Primary Care) Vital Signs: Last Vital Signs Temp 97.9 F 03/23/23 09:23 Pulse 88 03/23/23 09:23 Resp 13 03/23/23 09:23 BP 124/70 03/23/23 09:23 Pulse Ox 98 03/23/23 09:23 Oxygen Delivery Method Room Air 03/23/23 09:23 BMI result Body Mass Index 29.5 Tobacco/Smoking Status: Tobacco use Status Tobacco use date assessed 03/23/23 03/23/23 09:46 Patient Tobacco Use Status Former Tobacco user 03/23/23 09:30 e-Cigarette/Vaping Use Never Used 03/23/23 09:30 PHQ-9: PHQ-9 Score PHQ-9: Total score 8 03/23/23 11:48 Depression Screening Interpretation: Positive Thrive Assessment: Date of Thrive Assessment Date Thrive assessed 03/23/23 03/23/23 09:55 Currently or been in a relationship where the following occur: no concerns reported Const Other: General: no acute distress, well developed, alert and awake Nutritional Appearance: well nourished Orientation/consciousness: patient oriented x3 HENMT Head: Yes normocephalic and Yes atraumatic Ears: hearing grossly normal bilaterally and TM's normal bilaterally General nose exam: Normal external nose present and Normal nares present Mouth: Normal oral and palatal mucosa present and moist mucous membranes Teeth and gingiva: dentition normal Throat: Yes oropharynx normal Eyes Pupils: Equal, round and reactive pupils present and Pupil accommodation reflex normal EOM: EOMs intact bilaterally Neck Neck: Yes normal visual inspection, Yes no lymphadenopathy and Yes trachea midline Thyroid: Thyroid normal Carotids: no bruits Lymphatic: no lymphadenopathy noted Chest Chest palpation & inspection: normal inspection of the chest Resp Effort & Inspection: normal respiratory effort Auscultation: clear to auscultation bilaterally Cardio Rate: regular rate Rhythm: regular rhythm Heart sounds: S1 normal heart sound present, S2 normal heart sound present, no gallops, no murmurs and no rubs Bruits: no abdominal aortic bruits and no carotid bruits GI Palpation (GI): No Abdominal aortic bruit present, Soft to palpation, nontender, No hepatosplenomegaly present and No Rebound tenderness present Auscultation: normal bowel sounds General: Yes no CVA tenderness Back/Spine/Pelvis Back: no CVA tenderness Cervical Spine: cervical ROM normal and No Cervical spine tenderness Thoracic/Lumbar Spine: thoraco-lumbar ROM normal, No pain with thoraco-lumbar ROM, No thoracic spinal tenderness and lumbar spinal tenderness Skin General: warm and dry. Normal skin color. Normal skin turgor Lesions: no lesions Rashes: no rashes Trauma: no lacerations or abrasions Wounds: no wounds Nails: normal Neuro General: patient oriented x3, gait normal and CN's II-XI intact bilaterally Cranial nerves: Yes Equal, round and reactive pupils present Cognition (Neuro): normal cognition Gait exam (Neuro): Normal gait present Motor exam (neuro): 5/5 motor strength present throughout Sensory Exam: No Sensory deficit (Neuro) Deep tendon reflexes (DTR's): Right patellar reflex intensity grade: 2+ and Left patellar reflex intensity grade: 2+ Extrem General: Yes normal to inspection, No edema and No calf tenderness Psych Appearance: grossly normal Affect: normal affect Attitude: cooperative Thought process: Normal thought process present Assessment and Plan Assessment & Plan (1) Normal routine history and physical examination: Code(s): Z00.00 - Encounter for general adult medical examination without abnormal findings Plan: No significant physical restrictions or limitations noted Continue current treatment regimen Advised to follow-up in 6 weeks for diabetes and hyperlipidemia or return sooner with symptoms or concerns Healthy lifestyle changes including diet and exercise encouraged Verbalized understanding and agreed with treatment plan (2) Low back pain: Code(s): M54.50 - Low back pain, unspecified Plan: Chronic low back and LLE pain Continue current treatment regimen Continue follow-up with pain management as planned Warm/cold compresses encouraged Follow-up with worsening or new symptoms Verbalized understanding and agreed with treatment plan (3) Pain of left lower extremity: Code(s): M79.605 - Pain in left leg Plan: As above (4) Hyperlipidemia: Code(s): E78.5 - Hyperlipidemia, unspecified Plan: Recent triglycerides, total cholesterol, and LDL level are elevated, 259, 254, and 153 respectively Atorvastatin ordered. Take as prescribed Take fenofibrate as prescribed Advised to limit foods high in saturated fat and avoid foods high in trans fat Routine exercise encouraged Will repeat lipid panel level in 6 weeks. Advised to fast for 10-12 hours, may drink water only, and get blood work done 2-3 days before his next visit Follow-up in 6 weeks or return sooner with symptoms or concerns Verbalized understanding and agreed with treatment plan (5) Colon cancer screening: Code(s): Z12.11 - Encounter for screening for malignant neoplasm of colon Plan: He notes that his last colonoscopy was 4 years ago. Record not found. No history of colonoscopy per [facility] Referred to [facility] for a colonoscopy Orders: Orders Lipid Panel 6 Weeks E78.5 - Hyperlipidemia, unspecified Referrals Gastroenterology Referral Z12.11 - Encounter for screening for malignant neoplasm of colon Medications: New atorvastatin 20 mg PO BEDTIME 30 days 30 tabs 3RF Changed From testosterone enanthate (Xyosted) 100 mg (0.5 mL) subcut QWEEK 4 weeks 2 mL 3RF To testosterone enanthate (Xyosted) 100 mg subcut QWEEK From lancets (FreeStyle Lancets) As directed 100 ea 4RF To lancets (FreeStyle Lancets) POC testing 4 times daily 100 ea 4RF From blood sugar diagnostic (FreeStyle Lite Strips) As directed 100 ea 4RF To blood sugar diagnostic (FreeStyle Lite Strips) POC 4 times daily 100 ea 4RF Refilled lancets (FreeStyle Lancets) As directed 100 ea 4RF Coding Level of Care Code Est Pt Prev Care 40-64y(08345) Diagnoses Normal routine history and physical examination Z00.00 Low back pain M54.50 Pain of left lower extremity M79.605 Hyperlipidemia E78.5 Colon cancer screening Z12.11 Additional Codes NICOLE-7 Assessment Billing - NICOLE-7 Assessment Tool: NICOLE-7 Assessment 49758 ([id number])
== END 2023-03-23 10:08 | disposition home or self-care (01) ==
PROVIDERS: PCP Nurse Practitioner Family; Visit Provider Nurse Practitioner Family
DX: Z00.00 Encounter for general adult medical examination without abnormal findings (principal); M54.50 Low back pain, unspecified; M79.605 Pain in left leg; E78.5 Hyperlipidemia, unspecified; Z12.11 Encounter for screening for malignant neoplasm of colon
CPT/HCPCS: 99396

== ENCOUNTER 2023-03-29 07:55 | Outpatient (AMB) | payer OTHER, SELFPAY ==
--- NOTE | 2023-03-29 08:03 | MHC.OFFVIS ---
Intake Vital Signs 03/29/23 08:14 Height 6 ft 2 in Weight 226 lb 2 oz BMI 29.0 BP 136/90 H Blood Pressure Location Rt brachial Position Sitting Pulse 86 Pulse Source Pulse Oximeter Pulse Oximetry (%) 97 Oxygen Delivery Method Room Air Intake Visit Reasons: Medication Count/ random UDS/ Confirmed Intake Note: Sridhar comes in today for a pill count to methadone, patient should have 58 tablets and presents with 58 tablets which he last took today 03/29/23 at 7am. 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/26 Patient will have a random UDS done, aware he will need to go to the lab on the first floor of this building today 03/29/23 before 12pm today. Patient also signed updated opioid contract in office. Was given copy of signed contract. Allergies fentanyl Allergy (Intermediate, Verified 03/29/23 08:14) itching morphine [Amber] Allergy (Intermediate, Verified 03/29/23 08:14) itch Iodinated Contrast Media [IV Dye, Iodine Containing] Allergy (Mild, Verified 03/29/23 08:14) DIFFICULTY BREATHING,VOMITING amoxicillin [From Augmentin] Adverse Reaction (Intermediate, Verified 03/29/23 08:14) Diarrhea clavulanic acid [From Augmentin] Adverse Reaction (Intermediate, Verified 03/29/23 08:14) Diarrhea metformin Adverse Reaction (Intermediate, Verified 03/29/23 08:14) stomach pain HPI HPI Comments History of Present Illness Details Patient presents today for a methadone pill count. He is supposed to have #58 pills in their possession and has #58 pills. This demonstrates a responsible attitude in regards to the opioid regimen. Patient reports mild to moderate analgesia with current dose with no noted side effects. He continues to endorse spinal-stenosis and left leg radicular pain. Patient has upcoming Neurosurgical evaluation this month. He reports methodone is able to bring his pain down to 6-7/10. Denies any fever, sore throat, shortness of breaths, abdominal pain, constipation, sedation, nausea, dizziness, urinary retention, bladder or bowel dysfunction or saddle anesthesia. [facility] Medical History Narcotic drug use DMII (diabetes mellitus, type 2) Elevated liver transaminase level High cholesterol Arthritis Diabetes Lumbar radiculopathy, chronic Lumbar spinal stenosis Cervical radiculopathy Lumbar post-laminectomy syndrome Surgical History H/O colonoscopy History of elbow surgery History of lumbar fusion History of cholecystectomy Family History Father Liver problem Alcoholism Substance use disorder Mother No problems noted. Brother CAD (coronary artery disease) Social History Household Members: Family Housing: House Do you presently have visiting nurse or other home services: No Alcohol intake: never Patient Tobacco Use Status: Former Tobacco user Cigarette Packs Per Day: 0.5 Cigarettes Per Day: 10 Years Smoked: 10 e-Cigarette/Vaping Use: Never Used Second Hand Smoke Exposure: No service: No Current occupational status: disabled Current occupational exposures/hazards: No Cognitive needs: Yes (cane) Hearing needs: No Vision needs: Yes (reading glasses) Review of Systems Const All systems reviewed & are unremarkable except as noted in HPI and below Physical Exam Vital Signs: Last Vital Signs Pulse 86 03/29/23 08:14 BP 136/90 H 03/29/23 08:14 Pulse Ox 97 03/29/23 08:14 Oxygen Delivery Method Room Air 03/29/23 08:14 BMI result Body Mass Index 29.0 On exam today: Appears afebrile. Alert and oriented. Mood and affect appropriate. Follows and participates in conversation appropriately. Respiratory effort is unlabored. No cough. Able to transition from sit to stand unassisted. Able to stand and walk on toes and heels but reports unsteady gait on the left. Limited lumbar ROM due to pain. Antalgic gate, uses cane. Positive SLR with dorsiflexion on the left at L5-S1, and right in L4-L5. +Facet loading bilaterally, worse on the left. Apolinar's test +on the left. Psych Appearance: grossly normal Mental Status: mental status grossly normal Speech and movement: Normal speech and movement present Affect: normal affect Attitude: cooperative Thought process: Normal thought process present Thought content: Normal thought content present, suicidality (none), no hallucinations and No Depressive thoughts present Insight: Good insight present (Psych) Judgement: Good judgement present (Psych) Results Reviewed Results Reviewed: MR LUMBAR SPINE WITHOUT CONTRAST 01/30/23 CLINICAL INFORMATION: Low back pain. Bilateral leg pain, worse on the left side. Prior surgery. COMPARISON: MRI dated 12/08/2019. TECHNIQUE: Multiplanar, multisequence imaging was obtained. FINDINGS: VERTEBRAL BODIES AND PARASPINAL STRUCTURES: An interbody prosthesis is again visible at the L5-S1 level with a solid arthrodesis. Chronic fatty marrow degenerative endplate changes again visible at this level as well. The paraspinal soft tissues appear normal. There are [id number] degenerative changes of the sacroiliac joints. There is edema in the pedicles and posterior elements at the L4-L5 level which was not present on prior imaging and may be stress-related in etiology or reactive to severity of facet arthrosis. No compression fractures are seen. A mild anterolisthesis is again evident at the L4-L5 level as well. CONUS MEDULLARIS AND CAUDA EQUINE: The distal cord, conus tip, and cauda equina nerve roots appear normal. SPINAL LEVELS: L1-L2: No central canal stenosis or foraminal narrowing. No significant disc pathology. L2-L3: Well-hydrated normal appearance of the disc without central canal stenosis or foraminal narrowing. L3-L4: Slight posterior subluxation and broad-based disc bulge with a shallow central disc protrusion and hypertrophic facet arthropathy. Disc protrusion is slightly decreased in size compared to prior imaging with diminished mass effect upon the thecal sac. Mild central canal stenosis and mild bilateral foraminal narrowing. L4-L5: Mild anterolisthesis and broad-based disc bulge noted. Previous central disc protrusion has resorbed. Infolding and thickening of the ligamentum flavum with progressed advanced facet arthropathy contributes to moderate central canal stenosis with mild foraminal narrowing. Marrow edema in the pedicles and posterior elements. L5-S1: Post interbody fusion changes with a left-sided laminectomy defect. No central canal stenosis. Mild left foraminal narrowing is stable IMPRESSION: 1. Previous central disc protrusion at the L4-L5 level has resorbed. Stable mild anterolisthesis and slightly worsened advanced facet arthropathy with moderate central canal stenosis and mild foraminal narrowing. New edema in the pedicles and posterior elements at this level, presumably reactive/stress-related in etiology. 2. Status post interbody fusion with a solid arthrodesis at the L5-S1 level, as on prior imaging. 3. Shallow central disc protrusion at the L3-L4 level is slightly decreased in size with decreased mass effect upon the thecal sac. Mild central canal stenosis and foraminal narrowing. Assessment & Plan Assessment & Plan (1) Lumbar spondylosis: Code(s): M47.816 - Spondylosis without myelopathy or radiculopathy, lumbar region (2) Lumbar spinal stenosis: Code(s): M48.061 - Spinal stenosis, lumbar region without neurogenic claudication (3) Lumbar radiculopathy, chronic: Code(s): M54.16 - Radiculopathy, lumbar region (4) Lumbar post-laminectomy syndrome: Code(s): M96.1 - Postlaminectomy syndrome, not elsewhere classified (5) Opioid contract exists: Code(s): Z79.891 - terminal clerk (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 There is no evidence of misuse, abuse or diversion at this time. [employer] reviewed. Script sent for methadone to 10 mg BID for 30 days with advanced date of 04/27/23. Patient is aware of monitoring for side effects. Encouraged adequate hydration and daily fiber intake, and physical activity as tolerated. Avoid heavy lifting. Patient has upcoming Neurosurgical evaluation with [facility] this month, patient was reminded of his appt All questions were answered and the patient is in agreement with the plan. Follow up in 4 weeks for a pill count review or sooner if needed. Medications: Refilled methadone Partial Fill upon patient request. 10 mg PO BID 60 tabs 0RF pain 30 days M47.816 - Spondylosis without myelopathy or radiculopathy, lumbar region, M48.061 - Spinal stenosis, lumbar region without neurogenic claudication, M54.16 - Radiculopathy, lumbar region, M96.1 - Postlaminectomy syndrome, not elsewhere classified gabapentin 300 mg PO BID 180 caps 6RF pain 90 days M48.061 - Spinal stenosis, lumbar region without neurogenic claudication, M54.16 - Radiculopathy, lumbar region, M96.1 - Postlaminectomy syndrome, not elsewhere classified Coding Level of Care Code Est Pt Level 4 (38410) Diagnoses Lumbar spondylosis M47.816 Lumbar spinal stenosis M48.061 Lumbar radiculopathy, chronic M54.16 Lumbar post-laminectomy syndrome M96.1 Opioid contract exists Z79.891 Chronic pain syndrome G89.4
[2023-03-29 08:14] VITALS: BP 136/90; PULSE 86; O2SAT 97; BMI 29.0
== END 2023-03-29 08:42 | disposition home or self-care (01) ==
PROVIDERS: PCP Nurse Practitioner Family; Visit Provider Nurse Practitioner Family
DX: M54.16 Radiculopathy, lumbar region (principal); M96.1 Postlaminectomy syndrome, not elsewhere classified; G89.4 Chronic pain syndrome; Z79.891 Long term (current) use of opiate analgesic; M47.816 Spondylosis without myelopathy or radiculopathy, lumbar region; M48.061 Spinal stenosis, lumbar region without neurogenic claudication
CPT/HCPCS: 99214

== ENCOUNTER → 2023-03-29 07:55 | Outpatient (BNVA) | payer OTHER, SELFPAY | PROVIDERS: PCP Nurse Practitioner Family; Visit Provider Nurse Practitioner Family | DX: Z51.81 Encounter for therapeutic drug level monitoring (principal); M47.816 Spondylosis without myelopathy or radiculopathy, lumbar region; M54.16 Radiculopathy, lumbar region; M48.061 Spinal stenosis, lumbar region without neurogenic claudication; M96.1 Postlaminectomy syndrome, not elsewhere classified; Z79.891 Long term (current) use of opiate analgesic; G89.4 Chronic pain syndrome | CPT/HCPCS: 99212 ==

== ENCOUNTER 2023-04-12 07:54 | Outpatient (AMB) | payer OTHER, SELFPAY ==
--- NOTE | 2023-04-12 07:55 | A.OFFVIS_ITS ---
Intake Vital Signs 04/12/23 07:59 Height 6 ft 2 in Weight 231 lb 7.766 oz BMI 29.7 BP 131/69 Blood Pressure Location Lt brachial Position Sitting Pulse 96 Intake Visit Reasons: Discuss EGD/GERD Intake Note: Sridhar presents in the office as a follow up EGD for GERD. CC: HE states that his pcp wants him to have a EGD and he is not sure if he had the EGD. He is having issues with the testosterone shots so he is going to go see the Dr about that today. He states that the acid reflux has gotten a lot better. Sometimes if he eats certain foods he will get a burning in his stomach. Omeprazole is helping a lot. 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 Resource Adviser Required: No Allergies fentanyl Allergy (Intermediate, Verified 04/12/23 08:01) itching morphine [Amber] Allergy (Intermediate, Verified 04/12/23 08:01) itch Iodinated Contrast Media [IV Dye, Iodine Containing] Allergy (Mild, Verified 04/12/23 08:01) DIFFICULTY BREATHING,VOMITING amoxicillin [From Augmentin] Adverse Reaction (Intermediate, Verified 04/12/23 08:01) Diarrhea clavulanic acid [From Augmentin] Adverse Reaction (Intermediate, Verified 04/12/23 08:01) Diarrhea metformin Adverse Reaction (Intermediate, Verified 04/12/23 08:01) stomach pain HPI Discuss EGD/GERD HPI Details Assessment & Plan (1) BARROSO (nonalcoholic steatohepatitis): Code(s): K75.81 - Nonalcoholic steatohepatitis (BARROSO) Plan: [place]ESE-SPEAKING He is doing well. He had a bad episode of post prandial diarrhea after he was seen in the ER for sinusitis - the abx was augmentin and he stopped it after 2 doses. He then took PCN that is sold OTC in [place]. He tolerated this better. I advise him to use a probiotic supplement when he has to take antibiotics. We review his liver labs and he has made good progress with this over the years. When I first started seeing him the in 2018 ast/alt was 57/100, and now he is at. 27/42! He has lost some weight, and perhaps, his diabetes control is better. He continues on his omeprazole with control of his GERD. He is due for a repeat US and we ill order this. ROV 6 mos. (2) GERD (gastroesophageal reflux diseas e): Code(s): K21.9 - Gastro-esophageal reflux disease without esophagitis Qualifiers: Esophagitis bleeding: without hemorrhage Esophagitis presence: with esophagitis Qualified Code(s): K21.00 - Gastro-esophageal reflux disease with esophagitis, without bleeding (3) Irritable bowel syndrome with diarrh ea: Code(s): K58.0 - Irritable bowel syndrome with diarrhea Orders: Orders Alpha Fetoprotein 08/29/22 K75.81 - Nonalcoho lic steatohepatiti s (BARROSO) Gamma Glutamyl Tra nspeptidase 08/29/22 K75.81 - Nonalcoho lic steatohepatiti s (BARROSO) Medications: Refilled omeprazole 40 mg PO DAILY 30 caps 6RF 30 days K21.00 - Gastro-es ophageal reflux di sease with esophag itis, without blee ding Labs: Not obtained TODAY'S VISIT [place]ESE[place]SPEAKING He is due for labs for the liver and an ultrasound elastography. He does not know why his new PCP is requesting a EGD since his GERD is well controlled, he is eating well and movoing his bowels well wtih normal, formed stools. He has only occasional epigastric discomfort depending on what he eats. He does not have any good indication for an EGD, and is not due for a colonos copy until 2027. His new PCP is Dr. Caro in [place]. He is due for an ultrasound with elastography to check his liver as well as some liver function tests which were ordered today. ROV 6 mos. [facility] Medical History (Updated 04/12/23 @ 08:34 by ANDREW Gasca) Pre-op examination Colon cancer screening Left otitis media Weight loss, abnormal Nausea Irritable bowel syndrome with diarrhea Normal routine history and physical examination Low back pain Laboratory tests ordered as part of a complete physical exam (CPE) BPH (benign prostatic hyperplasia) Poison derek dermatitis Hx of iron deficiency anemia Screening PSA (prostate specific antigen) Lumbar spondylosis Iron deficiency anemia Normal physical exam Anemia Sepsis Acute respiratory failure with hypoxia Pneumonia History of COVID-19 History of 2019 novel coronavirus disease (COVID-19) High cholesterol Arthritis Diabetes Contact dermatitis Narcotic drug use DMII (diabetes mellitus, type 2) Elevated liver transaminase level Lumbar radiculopathy, chronic Lumbar spinal stenosis Cervical radiculopathy Lumbar post-laminectomy syndrome Surgical History (Updated 04/12/23 @ 07:59 by EDWARD Garner) History of esophagogastroduodenoscopy (EGD) H/O colonoscopy History of elbow surgery History of lumbar fusion History of cholecystectomy Family History Father Liver problem Alcoholism Substance use disorder Mother No problems noted. Brother CAD (coronary artery disease) Social History Household Members: Family Housing: House Do you presently have visiting nurse or other home services: No Alcohol intake: never Patient Tobacco Use Status: Former Tobacco user Cigarette Packs Per Day: 0.5 Cigarettes Per Day: 10 Years Smoked: 10 e-Cigarette/Vaping Use: Never Used Second Hand Smoke Exposure: No service: No Current occupational status: disabled Current occupational exposures/hazards: No Cognitive needs: Yes (cane) Hearing needs: No Vision needs: Yes (reading glasses) Review of Systems Const Denies fatigue, Denies fever(s), Denies night sweats, Denies poor appetite and Denies weight loss ENT Reports Normal hearing present, Denies dental pain, Denies dysphagia, Denies hearing loss, Denies mouth pain, Denies odynophagia, Denies throat swelling, Denies tongue swelling and Reports other (Dentition adequate) Card Reports no additional complaints Resp Reports no additional complaints GI Denies abdominal pain, Denies melena, Denies bloating, Denies hematochezia, Denies constipation, Denies GI cramping, Denies dysphagia, Denies excessive flatus, Denies early satiety, Reports heartburn, Denies diarrhea, Denies nausea, Denies odynophagia, Denies vomiting and Denies hematemesis Musc Reports back pain and Reports myalgias Skin/Breast Denies pruritus, Denies lesions, Denies rash and Denies jaundice Neuro Reports Normal hearing present and Denies Abnormal speech present Endo Denies fatigue Aller/Immun Denies throat swelling and Denies tongue swelling Physical Exam Const General: cooperative, no acute distress, well developed and well groomed Nutritional Appearance: well nourished and overweight Orientation/consciousness: oriented to person, oriented to place and oriented to time Limitations: No language barrier HEENT Head: Yes normocephalic and Yes atraumatic Eyes General: appearance normal, both eyes and all related structures Pupils: Equal, round and reactive pupils present Neck Neck: Yes normal visual inspection and Yes no lymphadenopathy Thyroid: Thyroid normal Resp Effort & Inspection: normal respiratory effort and able to speak in complete sentences Auscultation: clear to auscultation bilaterally Cardio Rate: regular rate Rhythm: regular rhythm Heart sounds: Normal, physiologic split S2 sound present Peripheral pulses: radial pulses present and posterior tibial pulses present GI Inspection: No distended, No Abdominal panniculus present and Yes obesity Palpation (GI): Soft to palpation, nontender, no guarding, not rigid and No hepatosplenomegaly present Percussion: Yes normal to percussion Auscultation: normal bowel sounds Rectal Exam - Male: Yes deferred Skin General skin exam: no rashes or lesions noted, turgor normal, skin not dry, no jaundice, No spider nevi and no striae Rashes: no rashes Nails: normal Neuro General: oriented to person, oriented to place and oriented to time Cranial nerves: Yes Equal, round and reactive pupils present and Yes Normal hearing present Speech: No Abnormal speech present Extrem General: Yes normal to inspection, No clubbing, No cyanosis and No edema Psych Appearance: grossly normal and well kempt Mental Status: mental status grossly normal Speech and movement: Normal speech and movement present Affect: normal affect Attitude: cooperative Thought process: Normal thought process present and not confabulating Thought content: Normal thought content present Insight: Fair insight present (Psych) Judgement: Fair judgement present (Psych) Assessment & Plan Assessment & Plan (1) Irritable bowel syndrome with both constipation and diarrhea: Code(s): K58.2 - Mixed irritable bowel syndrome (2) BARROSO (nonalcoholic steatohepatitis): Code(s): K75.81 - Nonalcoholic steatohepatitis (BARROSO) (3) History of cholecystectomy: Comment: Danielle 2007 Code(s): Z90.49 - Acquired absence of other specified parts of digestive tract (4) GERD (gastroesophageal reflux disease): Code(s): K21.9 - Gastro-esophageal reflux disease without esophagitis Qualifiers: Esophagitis bleeding: without hemorrhage Esophagitis presence: with esophagitis Qualified Code(s): K21.00 - Gastro-esophageal reflux disease with esophagitis, without bleeding Plan [place]SPEAKING He is due for labs for the liver and an ultrasound elastography. He does not know why his new PCP is requesting a EGD since his GERD is well controlled, he is eating well and movoing his bowels well wtih normal, formed stools. He has only occasional epigastric discomfort depending on what he eats. He does not have any good indication for an EGD, and is not due for a colonoscopy until 2027. His new PCP is Dr. Caro in [place]. He is due for an ultrasound with elastography to check his liver as well as some liver function tests which were ordered today. ROV 6 mos. Orders: Orders Comprehensive Met. Panel Today K75.81 - Nonalcoholic steatohepatitis (BARROSO), Z01.818 - Encounter for other preprocedural examination Gamma Glutamyl Transpeptidase Today K75.81 - Nonalcoholic steatohepatitis (BARROSO), Z01.818 - Encounter for other preprocedural examination Alpha Fetoprotein Today K75.81 - Nonalcoholic steatohepatitis (BARROSO), Z01.818 - Encounter for other preprocedural examination US abdomen comp w elastography Today K75.81 - Nonalcoholic steatohepatitis (BARROSO) Medications: Refilled omeprazole 40 mg PO DAILY 90 caps 1RF K21.00 - Gastro-esophageal reflux disease with esophagitis, without bleeding Coding Level of Care Code Est Pt Level 3 (11280) Diagnoses Irritable bowel syndrome with both constipation and diarrhea K58.2 BARROSO (nonalcoholic steatohepatitis) K75.81 History of cholecystectomy Z90.49 Gastroesophageal reflux disease with esophagitis without hemorrhage K21.00 Esophagitis bleeding: without hemorrhage Esophagitis presence: with esophagitis
[2023-04-12 07:59] VITALS: BP 131/69; PULSE 96; BMI 29.7
== END 2023-04-12 08:34 | disposition home or self-care (01) ==
PROVIDERS: PCP Nurse Practitioner Family; Visit Provider Nurse Practitioner
DX: K58.2 Mixed irritable bowel syndrome (principal); K75.81 Nonalcoholic steatohepatitis (NASH); Z90.49 Acquired absence of other specified parts of digestive tract; K21.00 Gastro-esophageal reflux disease with esophagitis, without bleeding
CPT/HCPCS: 99213

== ENCOUNTER → 2023-04-12 07:54 | Outpatient (BNVA) | payer OTHER, SELFPAY | PROVIDERS: PCP Nurse Practitioner Family; Visit Provider Nurse Practitioner | DX: K21.00 Gastro-esophageal reflux disease with esophagitis, without bleeding (principal); K58.2 Mixed irritable bowel syndrome; K75.81 Nonalcoholic steatohepatitis (NASH); Z90.49 Acquired absence of other specified parts of digestive tract | CPT/HCPCS: 99212 ==

== ENCOUNTER → 2023-04-23 10:40 | Outpatient (BNVA) | payer OTHER, SELFPAY | PROVIDERS: PCP Nurse Practitioner Family; Visit Provider Urology ==

== ENCOUNTER 2023-04-26 07:55 | Outpatient (AMB) | payer OTHER, SELFPAY ==
[2023-04-26 08:28] VITALS: BP 122/72; PULSE 85; RESP 18; O2SAT 97; BMI 29.0
--- NOTE | 2023-04-26 08:28 | A.OFFVIS_ITS ---
Intake Vital Signs 04/26/23 08:28 Height 6 ft 2 in Weight 226 lb BMI 29.0 BP 122/72 Blood Pressure Location Lt brachial Position Sitting Respiration 18 Pulse 85 Pulse Source Pulse Oximeter Pulse Oximetry (%) 97 Oxygen Delivery Method Room Air Intake Visit Reasons: PILL COUNT/confirmed Allergies fentanyl Allergy (Intermediate, Verified 04/26/23 08:27) itching morphine [Amber] Allergy (Intermediate, Verified 04/26/23 08:27) itch Iodinated Contrast Media [IV Dye, Iodine Containing] Allergy (Mild, Verified 04/26/23 08:27) DIFFICULTY BREATHING,VOMITING amoxicillin [From Augmentin] Adverse Reaction (Intermediate, Verified 04/26/23 08:27) Diarrhea clavulanic acid [From Augmentin] Adverse Reaction (Intermediate, Verified 04/26:) Diarrhea metformin Adverse Reaction (Intermediate, Verified 04/26/23 08:) stomach pain HPI HPI Comments History of Present Illness Details Patient presents today for a methadone pill count. He is supposed to have #2 pills in their possession and has #9 pills. This demonstrates a responsible attitude in regards to the opioid regimen. Patient reports mild to moderate analgesia with current dose with no noted side effects. He reports worsening spinal-stenosis related and left leg radicular pain. Patient has pending Neurosurgical evaluation with Dr. Spain which he reports is being rescheduled. Denies any fever, sore throat, shortness of breaths, abdominal pain, constipation, sedation, nausea, dizziness, urinary retention, bladder or bowel dysfunction or saddle anesthesia. [facility] Medical History Pre-op examination Colon cancer screening Left otitis media Weight loss, abnormal Nausea Irritable bowel syndrome with diarrhea Normal routine history and physical examination Low back pain Laboratory tests ordered as part of a complete physical exam (CPE) BPH (benign prostatic hyperplasia) Poison derek dermatitis Hx of iron deficiency anemia Screening PSA (prostate specific antigen) Lumbar spondylosis Iron deficiency anemia Normal physical exam Anemia Sepsis Acute respiratory failure with hypoxia Pneumonia History of COVID-19 History of 2019 novel coronavirus disease (COVID-19) High cholesterol Arthritis Diabetes Contact dermatitis Narcotic drug use DMII (diabetes mellitus, type 2) Elevated liver transaminase level Lumbar radiculopathy, chronic Lumbar spinal stenosis Cervical radiculopathy Lumbar post-laminectomy syndrome Surgical History History of esophagogastroduodenoscopy (EGD) H/O colonoscopy History of elbow surgery History of lumbar fusion History of cholecystectomy Family History Father Liver problem Alcoholism Substance use disorder Mother No problems noted. Brother CAD (coronary artery disease) Social History Household Members: Family Housing: House Do you presently have visiting nurse or other home services: No Alcohol intake: never Patient Tobacco Use Status: Former Tobacco user Cigarette Packs Per Day: 0.5 Cigarettes Per Day: 10 Years Smoked: 10 e-Cigarette/Vaping Use: Never Used Second Hand Smoke Exposure: No service: No Current occupational status: disabled Current occupational exposures/hazards: No Cognitive needs: Yes (cane) Hearing needs: No Vision needs: Yes (reading glasses) Review of Systems Const All systems reviewed & are unremarkable except as noted in HPI and below Physical Exam Vital Signs: Last Vital Signs Pulse 85 04/26/23 08:28 Resp 18 04/26/23 08:28 BP 122/72 04/26/23 08:28 Pulse Ox 97 04/26/23 08:28 Oxygen Delivery Method Room Air 04/26/23 08:28 BMI result Body Mass Index 29.0 On exam today: Appears afebrile. Alert and oriented. Mood and affect appropriate. Follows and participates in conversation appropriately. Respiratory effort is unlabored. No cough. Able to transition from sit to stand unassisted. Able to stand and walk on toes and heels but reports unsteady gait on the left. Limited lumbar ROM due to pain. Antalgic gate, uses cane with ambulation. Positive SLR with dorsiflexion on the left, equivocal on the right. +Facet loading bilaterally, worse on the left. Apolinar's test positive bilaterally, left>right. Psych Appearance: grossly normal Mental Status: mental status grossly normal Speech and movement: Normal speech and movement present Affect: normal affect Attitude: cooperative Thought process: Normal thought process present Thought content: Normal thought content present, suicidality (none), no hallucinations and No Depressive thoughts present Insight: Good insight present (Psych) Judgement: Good judgement present (Psych) Results Reviewed Results Reviewed: MR LUMBAR SPINE WITHOUT CONTRAST 01/30/23 CLINICAL INFORMATION: Low back pain. Bilateral leg pain, worse on the left side. Prior surgery. COMPARISON: MRI dated 12/08/2019. TECHNIQUE: Multiplanar, multisequence imaging was obtained. FINDINGS: VERTEBRAL BODIES AND PARASPINAL STRUCTURES: An interbody prosthesis is again visible at the L5-S1 level with a solid arthrodesis. Chronic fatty marrow degenerative endplate changes again visible at this level as well. The paraspinal soft tissues appear normal. There are [id number] degenerative changes of the sacroiliac joints. There is edema in the pedicles and posterior elements at the L4-L5 level which was not present on prior imaging and may be stress-related in etiology or reactive to severity of facet arthrosis. No compression fractures are seen. A mild anterolisthesis is again evident at the L4-L5 level as well. CONUS MEDULLARIS AND CAUDA EQUINE: The distal cord, conus tip, and cauda equina nerve roots appear normal. SPINAL LEVELS: L1-L2: No central canal stenosis or foraminal narrowing. No significant disc pathology. L2-L3: Well-hydrated normal appearance of the disc without central canal stenosis or foraminal narrowing. L3-L4: Slight posterior subluxation and broad-based disc bulge with a shallow central disc protrusion and hypertrophic facet arthropathy. Disc protrusion is slightly decreased in size compared to prior imaging with diminished mass effect upon the thecal sac. Mild central canal stenosis and mild bilateral foraminal narrowing. L4-L5: Mild anterolisthesis and broad-based disc bulge noted. Previous central disc protrusion has resorbed. Infolding and thickening of the ligamentum flavum with progressed advanced facet arthropathy contributes to moderate central canal stenosis with mild foraminal narrowing. Marrow edema in the pedicles and posterior elements. L5-S1: Post interbody fusion changes with a left-sided laminectomy defect. No central canal stenosis. Mild left foraminal narrowing is stable IMPRESSION: 1. Previous central disc protrusion at the L4-L5 level has resorbed. Stable mild anterolisthesis and slightly worsened advanced facet arthropathy with moderate central canal stenosis and mild foraminal narrowing. New edema in the pedicles and posterior elements at this level, presumably reactive/stress-related in etiology. 2. Status post interbody fusion with a solid arthrodesis at the L5-S1 level, as on prior imaging. 3. Shallow central disc protrusion at the L3-L4 level is slightly decreased in size with decreased mass effect upon the thecal sac. Mild central canal stenosis and foraminal narrowing. Assessment & Plan Assessment & Plan (1) Lumbar spondylosis: Code(s): M47.816 - Spondylosis without myelopathy or radiculopathy, lumbar region (2) Lumbar spinal stenosis: Code(s): M48.061 - Spinal stenosis, lumbar region without neurogenic claudication (3) Lumbar radiculopathy, chronic: Code(s): M54.16 - Radiculopathy, lumbar region (4) Lumbar post-laminectomy syndrome: Code(s): M96.1 - Postlaminectomy syndrome, not elsewhere classified (5) Opioid contract exists: Code(s): Z79.891 - intermediate frame tender (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 There is no evidence of misuse, abuse or diversion at this time. [employer] reviewed. Patient has pending script for methadone to 10 mg BID for 30 days with advanced date of 04/27/23. Patient is aware of monitoring for side effects. Encouraged adequate hydration and daily fiber intake, and physical activity as tolerated. Patient has upcoming Neurosurgical evaluation with [facility]. Patient is aware to call if pain worsens or if he develops any red flag symptoms to seek emergency care. Patient denies any cauda equina syndrome symptoms at this time. All questions were answered and the patient is in agreement with the plan. Follow up in 4-5 weeks for a pill count and sooner if needed. Coding Level of Care Code Est Pt Level 4 (33848) Diagnoses Lumbar spondylosis M47.816 Lumbar spinal stenosis M48.061 Lumbar radiculopathy, chronic M54.16 Lumbar post-laminectomy syndrome M96.1 Opioid contract exists Z79.891 Chronic pain syndrome G89.4
== END 2023-04-26 08:40 | disposition home or self-care (01) ==
PROVIDERS: PCP Nurse Practitioner Family; Visit Provider Nurse Practitioner Family
DX: G89.4 Chronic pain syndrome (principal); M47.816 Spondylosis without myelopathy or radiculopathy, lumbar region; M48.061 Spinal stenosis, lumbar region without neurogenic claudication; Z79.891 Long term (current) use of opiate analgesic; M54.16 Radiculopathy, lumbar region; M96.1 Postlaminectomy syndrome, not elsewhere classified
CPT/HCPCS: 99214

== ENCOUNTER → 2023-04-26 07:55 | Outpatient (BNVA) | payer OTHER, SELFPAY | PROVIDERS: PCP Nurse Practitioner Family; Visit Provider Nurse Practitioner Family | DX: Z51.81 Encounter for therapeutic drug level monitoring (principal); M47.816 Spondylosis without myelopathy or radiculopathy, lumbar region; M54.16 Radiculopathy, lumbar region; M96.1 Postlaminectomy syndrome, not elsewhere classified; G89.4 Chronic pain syndrome; Z79.891 Long term (current) use of opiate analgesic | CPT/HCPCS: 99212 ==

== ENCOUNTER 2023-05-07 07:45 | Outpatient (AMB) | payer OTHER, SELFPAY ==
--- NOTE | 2023-05-07 08:06 | MHC.PC.OV ---
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 Accompanied by: Self / Same As Patient Allergies fentanyl Allergy (Intermediate, Verified 05/07/23 08:17) itching morphine [Amber] Allergy (Intermediate, Verified 05/07/23 08:17) itch Iodinated Contrast Media [IV Dye, Iodine Containing] Allergy (Mild, Verified 05/07/23 08:17) DIFFICULTY BREATHING,VOMITING amoxicillin [From Augmentin] Adverse Reaction (Intermediate, Verified 05/07/23 08:17) Diarrhea clavulanic acid [From Augmentin] Adverse Reaction (Intermediate, Verified 05/07/23 08:17) Diarrhea metformin Adverse Reaction (Intermediate, Verified 05/07/23 08:17) stomach pain Medication List - Last Reconciled 05/07/23 by Eldon Caro CNP acetaminophen ER (Tylenol Arthritis Pain) 650 mg PO Q8H PRN 30 days atorvastatin 20 mg PO BEDTIME 30 days blood sugar diagnostic (FreeStyle Lite Strips) POC 4 times daily blood-glucose meter (FreeStyle Lite Meter kit) check blood sugars daily and pern fenofibrate 54 mg PO DAILY gabapentin 300 mg PO BID 90 days insulin syringe-needle U-100 (Advocate Syringes) As directed lancets (FreeStyle Lancets) POC testing 4 times daily linagliptin (Tradjenta) 5 mg PO DAILY meloxicam 15 mg PO DAILY PRN 30 days methadone 10 mg PO BID 30 days omeprazole 40 mg PO DAILY safety needles (BD Eclipse Luer-Pilo) As directed for biweekly injection (injecting needle)- 2 per month sildenafil (Viagra) 50 mg PO DAILY PRN syringe with cannula,disposabl As directed for biweekly Testosterone injection- 2 per month syringe with needle (BD Luer-Pilo Syringe) As directed testosterone cypionate (Depo-Testosterone) 200 mg IM Q2W 4 weeks Tobacco use date assessed: 03/23/23 Dental Screening Dental Screen Date: 05/07/23 Did you have a dental visit in the last 12 months?: Yes Did you have a dental problem in the last 6 months where you did not have access to dental care?: No Was dental information given to patient?: Patient has dentist HPI HPI Comments History of Present Illness Details Patient presents for diabetes and hyperlipidemia follow-up His last A1c was 6.5 % in January 2023 His last triglyceride, total cholesterol, and LDL levels were elevated, 259, 254, and 153 respectively; HDL level was normal, 50 He did not get his fasting lipid panel blood work done He admits to taking his medications as prescribed without adverse reactions He admits to making healthy lifestyle choices including diet and walking his dog almost every day Reports chronic intermittent pain to his left lower extremity He notes that he feels depressed related to marital issues. He lives with his . He notes that he does not want to live in the house anymore. He does not feel respected. He notes there are many issues with his and son. He states there are things that go around i don't like it. There is no respect. When there is no respect, the best thing to do is walk away. He intends to find a new place to live He states that he has a contact for a therapist and will call today to make an appointment He notes that he has ophthalmology appointment for eye exam in June [facility] Medical History Pre-op examination Colon cancer screening Left otitis media Weight loss, abnormal Nausea Irritable bowel syndrome with diarrhea Normal routine history and physical examination Low back pain Laboratory tests ordered as part of a complete physical exam (CPE) BPH (benign prostatic hyperplasia) Poison derek dermatitis Hx of iron deficiency anemia Screening PSA (prostate specific antigen) Lumbar spondylosis Iron deficiency anemia Normal physical exam Anemia Sepsis Acute respiratory failure with hypoxia Pneumonia History of COVID-19 History of 2019 novel coronavirus disease (COVID-19) High cholesterol Arthritis Diabetes Contact dermatitis Narcotic drug use DMII (diabetes mellitus, type 2) Elevated liver transaminase level Lumbar radiculopathy, chronic Lumbar spinal stenosis Cervical radiculopathy Lumbar post-laminectomy syndrome Surgical History History of esophagogastroduodenoscopy (EGD) H/O colonoscopy History of elbow surgery History of lumbar fusion History of cholecystectomy Family History Father Liver problem Alcoholism Substance use disorder Mother No problems noted. Brother CAD (coronary artery disease) Social History Household Members: Family Housing: House Do you presently have visiting nurse or other home services: No Alcohol intake: never Patient Tobacco Use Status: Former Tobacco user Cigarette Packs Per Day: 0.5 Cigarettes Per Day: 10 Years Smoked: 10 Packs Per Year: 5 Packs per year/per ci.00 e-Cigarette/Vaping Use: Never Used Second Hand Smoke Exposure: No service: No Current occupational status: disabled Current occupational exposures/hazards: No Cognitive needs: No (cane) Hearing needs: No Vision needs: Yes (reading glasses) Questionnaire PHQ-9 Over the last 2 weeks, how often have you been bothered by any of the following problems? 1. Little interest or pleasure in doing things: several days 2. Feeling down, depressed, or hopeless: more than half the days 3. Trouble falling or staying asleep, or sleeping too much: nearly every day 4. Feeling tired or having little energy: nearly every day 5. Poor appetite or overeating: not at all 6. Feeling bad about yourself - or that you are a failure or have let yourself or your family down: nearly every day 7. Trouble concentrating on things, such as reading the newspaper or watching television: more than half the days 8. Moving or speaking so slowly that other people could have noticed. Or the opposite - being so fidgety or restless that you have been moving around a lot more than usual: not at all 9. Thoughts that you would be better off or of hurting yourself in some way: not at all Total score: 14 Depression Screening Interpretation: Positive Depression Screening Follow-up: Other (Will call a therapist to make an appt) Depression Screening Done: Yes 42483 - PHQ-9 Billing: Yes Source: Developed by Drs. Enrico Chiang, Kassandra Neville, Farhat Pandey and colleagues, with an educational mann from [employer]. Thrive Questionnaire Date Thrive assessed: 03/23/23 NICOLE-7 AMB Questionnaire NICOLE-7 Date NICOLE - 7 assessed: 05/07/23 Feeling nervous, anxious, or on edge: 2 = More than half the days Not being able to stop or control worryin = Several days Worrying too much about different things: 1 = Several days Trouble relaxin = Nearly every day Being so restless that it is hard to sit still: 3 = Nearly every day Becoming easily annoyed or irritable: 2 = More than half the days Feeling afraid as if something awful might happen: 3 = Nearly every day Total NICOLE-7 score (0-4 normal; 5-9 mild; 10-14 moderate; 15-21 severe): 15 Source: Developed by Drs. Enrico Chiang, Kassandra Neville, Farhat Pandey and colleagues, with an educational mann from [employer]. NICOLE-7 Assessment Billing NICOLE-7 Assessment Tool: NICOLE-7 Assessment 48870 Review of Systems Const Details: Const Denies chills, Denies fatigue, Denies fever(s), Denies headache(s) and Denies weakness ENT Denies dizziness and Denies headache(s) Card Denies chest pain, Denies lightheadedness, Denies dyspnea and Denies other (Palpitations) Resp Denies cough, Denies dyspnea, Denies wheezing and Denies other ( shortness of breath) GI Denies abdominal pain, Denies melena, Denies hematochezia, Denies change in bowel habits, Denies dyspepsia and Denies nausea Denies hematuria and Denies dysuria Musc Reports as per HPI Skin/Breast Denies rash, Denies unusual bruising and Denies wounds Neuro Denies abnormal gait, Denies dizziness, Denies headache(s), Denies memory loss, Denies numbness, Denies Sensory deficit (Neuro), Denies tingling and Denies weakness Psych Denies anxiety, Reports depression, Denies memory loss Endo Denies cold intolerance, Denies fatigue, Denies heat intolerance, Denies polydipsia and Denies polyuria Aller/Immun Denies wheezing Physical exam (Primary Care) Vital Signs: Last Vital Signs Temp 97.6 F 05/07/23 08:07 Pulse 98 05/07/23 08:07 Resp 14 05/07/23 08:07 BP 128/76 05/07/23 08:07 Pulse Ox 99 05/07/23 08:07 Oxygen Delivery Method Room Air 05/07/23 08:07 BMI result Body Mass Index 29.7 Tobacco/Smoking Status: Tobacco use Status Tobacco use date assessed 03/23/23 05/07/23 08:06 Patient Tobacco Use Status Former Tobacco user 05/07/23 08:06 e-Cigarette/Vaping Use Never Used 05/07/23 08:06 PHQ-9: PHQ-9 Score PHQ-9: Total score 14 05/07/23 08:33 Depression Screening Interpretation: Positive Depression Screening Follow-up: Other (Will call a therapist to make an appt) Thrive Assessment: Date of Thrive Assessment Date Thrive assessed 03/23/23 05/07/23 08:06 Const Other: General: no acute distress and well developed Nutritional Appearance: well nourished Orientation/consciousness: patient oriented x3 HENMT Head: Yes normocephalic and Yes atraumatic Eyes General: appearance normal, both eyes and all related structures Pupils: Equal, round and reactive pupils present EOM: EOMs intact bilaterally Resp Effort & Inspection: normal respiratory effort Auscultation: clear to auscultation bilaterally Cardio Rate: regular rate Rhythm: regular rhythm Heart sounds: S1 normal heart sound present, S2 normal heart sound present, no gallops, no murmurs and no rubs GI Palpation (GI): No Abdominal aortic bruit present, Soft to palpation, nontender, No hepatosplenomegaly present and No Rebound tenderness present Auscultation: normal bowel sounds General: Yes no CVA tenderness Back/Spine/Pelvis Back: no CVA tenderness Cervical Spine: cervical ROM normal and No Cervical spine tenderness Thoracic/Lumbar Spine: thoraco-lumbar ROM normal, No pain with thoraco-lumbar ROM, No thoracic spinal tenderness and No lumbar spinal tenderness Extrem General: Yes normal to inspection, No edema and No calf tenderness Skin General: warm and dry. Normal skin color. Normal skin turgor Neuro General: patient oriented x3, gait normal and no focal neuro deficit Cranial nerves: Yes Equal, round and reactive pupils present Cognition (Neuro): normal cognition Gait exam (Neuro): Normal gait present Sensory Exam: No Sensory deficit (Neuro) Psych Appearance: grossly normal Affect: normal affect Attitude: cooperative Thought process: Normal thought process present Results AMB Hemoglobin A1c AMB Hemoglobin A1c 7.2 % Last Edit by Fiona Dietz MA on 05/07/23 08:23 Results Reviewed Results Reviewed: Laboratory Last Values Hgb A1c (Clinic) 7.2 % (4.0-6.0) H 05/07/23 08:17 Assessment and Plan Assessment & Plan (1) DMII (diabetes mellitus, type 2): Code(s): E11.9 - Type 2 diabetes mellitus without complications Plan: A1c today is 7.2%, slightly above goal of less than 7.0% ADA diet and routine exercise encouraged Will recheck A1c in 3 months Follow-up with Ophthalmology as planned Return with symptoms or concerns Verbalized understanding and agreed with treatment plan (2) Hyperlipidemia: Code(s): E78.5 - Hyperlipidemia, unspecified Plan: He forgets to get lipid panel blood work done Encouraged to get fasting blood work done as soon as can. Will review results and make changes as needed Verbalized understanding and agreed with the plan (3) Anxiety and depression: Code(s): F41.9 - Anxiety disorder, unspecified; F32.A - Depression, unspecified Plan: Reports significant depression symptoms related to issues with his and son PHQ-9 and NICOLE-7 scores revealed moderate depression and anxiety Declines medication treatment at this time He will call a therapist today to make an appointment Routine exercise encouraged Advised to inform his PCP if he has difficulty connecting to a therapist Follow-up in 2 weeks or return sooner with worsening or new symptoms Verbalized understanding and agreed with treatment plan (4) Pain of left lower extremity: Code(s): M79.605 - Pain in left leg Plan: Chronic intermittent left lower extremity pain Continue current treatment regimen Follow-up with pain management as planned Return with worsening or new symptoms Verbalized understanding and agreed with treatment plan Orders: Orders AMB Hemoglobin A1c Today E11.9 - Type 2 diabetes mellitus without complications Coding Level of Care Code Est Pt Level 4 (49611) Diagnoses DMII (diabetes mellitus, type 2) E11.9 Hyperlipidemia E78.5 Anxiety and depression F41.9; F32.A Pain of left lower extremity M79.605 Additional Codes NICOLE-7 Assessment Billing - NICOLE-7 Assessment Tool: NICOLE-7 Assessment 65115 ([id number])
[2023-05-07 08:07] VITALS: BP 128/76; PULSE 98; RESP 14; TEMP 36.4; O2SAT 99; BMI 29.7
== END 2023-05-07 09:01 | disposition home or self-care (01) ==
PROVIDERS: PCP Nurse Practitioner Family; Visit Provider Nurse Practitioner Family
DX: E11.69 Type 2 diabetes mellitus with other specified complication (principal); E78.5 Hyperlipidemia, unspecified; F41.9 Anxiety disorder, unspecified; F32.A Depression, unspecified; M79.605 Pain in left leg
CPT/HCPCS: 83036; 96127; 99214

== ENCOUNTER 2023-05-31 07:55 | Outpatient (AMB) | payer OTHER, SELFPAY ==
--- NOTE | 2023-05-31 08:19 | MHC.OFFVIS ---
Intake Vital Signs 05/31/23 08:32 Height 6 ft 2 in Weight 226 lb 8 oz BMI 29.1 BP 135/80 Blood Pressure Location Rt brachial Position Sitting Pulse 81 Pulse Source Pulse Oximeter Pulse Oximetry (%) 98 Oxygen Delivery Method Room Air Intake Visit Reasons: Pill Count Intake Note: Sridhar comes in today for a pill count to methadone, patient should have 0 tablets and presents with 21 tablets which he last took today 05/31/23. 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 Accompanied by: Self / Same As Patient Allergies fentanyl Allergy (Intermediate, Verified 05/31/23 08:32) itching morphine [Amber] Allergy (Intermediate, Verified 05/31/23 08:32) itch Iodinated Contrast Media [IV Dye, Iodine Containing] Allergy (Mild, Verified 05/31/23 08:32) DIFFICULTY BREATHING,VOMITING amoxicillin [From Augmentin] Adverse Reaction (Intermediate, Verified 05/31/23 08:32) Diarrhea clavulanic acid [From Augmentin] Adverse Reaction (Intermediate, Verified 05/31/23 08:32) Diarrhea metformin Adverse Reaction (Intermediate, Verified 05/31/23 08:32) stomach pain HPI HPI Comments History of Present Illness Details Patient presents today for a methadone pill count. He is supposed to have #0 pills in their possession and has #21 pills. This demonstrates a responsible attitude in regards to the opioid regimen. Patient reports adequate analgesia with current dose with no noted side effects. Patient reports worsening spinal-stenosis related and left leg radicular pain. He has pending Neurosurgical evaluation with Dr. Spain which he reports is being rescheduled. Denies any fever, sore throat, shortness of breaths, abdominal pain, constipation, sedation, nausea, dizziness, urinary retention, bladder or bowel dysfunction or saddle anesthesia. [facility] Medical History Pre-op examination Colon cancer screening Left otitis media Weight loss, abnormal Nausea Irritable bowel syndrome with diarrhea Normal routine history and physical examination Low back pain Laboratory tests ordered as part of a complete physical exam (CPE) BPH (benign prostatic hyperplasia) Poison derek dermatitis Hx of iron deficiency anemia Screening PSA (prostate specific antigen) Lumbar spondylosis Iron deficiency anemia Normal physical exam Anemia Sepsis Acute respiratory failure with hypoxia Pneumonia History of COVID-19 History of 2019 novel coronavirus disease (COVID-19) High cholesterol Arthritis Diabetes Contact dermatitis Narcotic drug use DMII (diabetes mellitus, type 2) Elevated liver transaminase level Lumbar radiculopathy, chronic Lumbar spinal stenosis Cervical radiculopathy Lumbar post-laminectomy syndrome Surgical History History of esophagogastroduodenoscopy (EGD) H/O colonoscopy History of elbow surgery History of lumbar fusion History of cholecystectomy Family History Father Liver problem Alcoholism Substance use disorder Mother No problems noted. Brother CAD (coronary artery disease) Social History Household Members: Family Housing: House Do you presently have visiting nurse or other home services: No Alcohol intake: never Patient Tobacco Use Status: Former Tobacco user Cigarette Packs Per Day: 0.5 Cigarettes Per Day: 10 Years Smoked: 10 e-Cigarette/Vaping Use: Never Used Second Hand Smoke Exposure: No service: No Current occupational status: disabled Current occupational exposures/hazards: No Cognitive needs: No (cane) Hearing needs: No Vision needs: Yes (reading glasses) Review of Systems Const All systems reviewed & are unremarkable except as noted in HPI and below Physical Exam Vital Signs: Last Vital Signs Pulse 81 05/31/23 08:32 BP 135/80 05/31/23 08:32 Pulse Ox 98 05/31/23 08:32 Oxygen Delivery Method Room Air 05/31/23 08:32 BMI result Body Mass Index 29.1 On exam today: Appears afebrile. Alert and oriented. Mood and affect appropriate. Follows and participates in conversation appropriately. Respiratory effort is unlabored. No cough. Able to transition from sit to stand unassisted. Able to stand and walk on toes and heels but reports unsteady gait on the left. Limited lumbar ROM due to pain. Lumbar extension and flexion increases his pain. Positive SLR with dorsiflexion on the left, equivocal on the right. +Facet loading bilaterally, worse on the left. Apolinar's test positive bilaterally, left>right. Psych Appearance: grossly normal Mental Status: mental status grossly normal Speech and movement: Normal speech and movement present Affect: normal affect Attitude: cooperative Thought process: Normal thought process present Thought content: Normal thought content present, suicidality (none), no hallucinations and No Depressive thoughts present Insight: Good insight present (Psych) Judgement: Good judgement present (Psych) Results Reviewed Results Reviewed: MR LUMBAR SPINE WITHOUT CONTRAST 01/30/23 CLINICAL INFORMATION: Low back pain. Bilateral leg pain, worse on the left side. Prior surgery. COMPARISON: MRI dated 12/08/2019. TECHNIQUE: Multiplanar, multisequence imaging was obtained. FINDINGS: VERTEBRAL BODIES AND PARASPINAL STRUCTURES: An interbody prosthesis is again visible at the L5-S1 level with a solid arthrodesis. Chronic fatty marrow degenerative endplate changes again visible at this level as well. The paraspinal soft tissues appear normal. There are [id number] degenerative changes of the sacroiliac joints. There is edema in the pedicles and posterior elements at the L4-L5 level which was not present on prior imaging and may be stress-related in etiology or reactive to severity of facet arthrosis. No compression fractures are seen. A mild anterolisthesis is again evident at the L4-L5 level as well. CONUS MEDULLARIS AND CAUDA EQUINE: The distal cord, conus tip, and cauda equina nerve roots appear normal. SPINAL LEVELS: L1-L2: No central canal stenosis or foraminal narrowing. No significant disc pathology. L2-L3: Well-hydrated normal appearance of the disc without central canal stenosis or foraminal narrowing. L3-L4: Slight posterior subluxation and broad-based disc bulge with a shallow central disc protrusion and hypertrophic facet arthropathy. Disc protrusion is slightly decreased in size compared to prior imaging with diminished mass effect upon the thecal sac. Mild central canal stenosis and mild bilateral foraminal narrowing. L4-L5: Mild anterolisthesis and broad-based disc bulge noted. Previous central disc protrusion has resorbed. Infolding and thickening of the ligamentum flavum with progressed advanced facet arthropathy contributes to moderate central canal stenosis with mild foraminal narrowing. Marrow edema in the pedicles and posterior elements. L5-S1: Post interbody fusion changes with a left-sided laminectomy defect. No central canal stenosis. Mild left foraminal narrowing is stable IMPRESSION: 1. Previous central disc protrusion at the L4-L5 level has resorbed. Stable mild anterolisthesis and slightly worsened advanced facet arthropathy with moderate central canal stenosis and mild foraminal narrowing. New edema in the pedicles and posterior elements at this level, presumably reactive/stress-related in etiology. 2. Status post interbody fusion with a solid arthrodesis at the L5-S1 level, as on prior imaging. 3. Shallow central disc protrusion at the L3-L4 level is slightly decreased in size with decreased mass effect upon the thecal sac. Mild central canal stenosis and foraminal narrowing. Assessment & Plan Assessment & Plan (1) Lumbar spondylosis: Code(s): M47.816 - Spondylosis without myelopathy or radiculopathy, lumbar region (2) Lumbar spinal stenosis: Code(s): M48.061 - Spinal stenosis, lumbar region without neurogenic claudication (3) Lumbar radiculopathy, chronic: Code(s): M54.16 - Radiculopathy, lumbar region (4) Lumbar post-laminectomy syndrome: Code(s): M96.1 - Postlaminectomy syndrome, not elsewhere classified (5) Opioid contract exists: Code(s): Z79.891 - half-way (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 There is no evidence of misuse, abuse or diversion at this time. [facility] reviewed. Script sent for methadone to 10 mg BID for 30 days with advanced date of 06/06/23. Refill sent for gabapentin. Patient is aware of monitoring for side effects. Encouraged adequate hydration and daily fiber intake, and physical activity as tolerated. Patient has upcoming Neurosurgical evaluation with [facility]. Patient is aware to call if pain worsens or if he develops any red flag symptoms to seek emergency care. Patient denies any cauda equina syndrome symptoms at this time. All questions were answered and the patient is in agreement with the plan. Follow up in 4-5 weeks for a pill count and sooner if needed. Medications: Refilled methadone Partial Fill upon patient request. 10 mg PO BID 30 days 60 tabs 0RF pain M47.816 - Spondylosis without myelopathy or radiculopathy, lumbar region, M48.061 - Spinal stenosis, lumbar region without neurogenic claudication, M54.16 - Radiculopathy, lumbar region, M96.1 - Postlaminectomy syndrome, not elsewhere classified gabapentin 300 mg PO BID 90 days 180 caps 6RF pain M48.061 - Spinal stenosis, lumbar region without neurogenic claudication, M54.16 - Radiculopathy, lumbar region, M96.1 - Postlaminectomy syndrome, not elsewhere classified Coding Level of Care Code Est Pt Level 4 (63176) Diagnoses Lumbar spondylosis M47.816 Lumbar spinal stenosis M48.061 Lumbar radiculopathy, chronic M54.16 Lumbar post-laminectomy syndrome M96.1 Opioid contract exists Z79.891 Chronic pain syndrome G89.4
[2023-05-31 08:32] VITALS: BP 135/80; PULSE 81; O2SAT 98; BMI 29.1
== END 2023-05-31 08:46 | disposition home or self-care (01) ==
PROVIDERS: PCP Nurse Practitioner Family; Visit Provider Nurse Practitioner Family
DX: G89.4 Chronic pain syndrome (principal); M47.816 Spondylosis without myelopathy or radiculopathy, lumbar region; M48.061 Spinal stenosis, lumbar region without neurogenic claudication; Z79.891 Long term (current) use of opiate analgesic; M54.16 Radiculopathy, lumbar region; M96.1 Postlaminectomy syndrome, not elsewhere classified
CPT/HCPCS: 99214

== ENCOUNTER → 2023-05-31 07:55 | Outpatient (BNVA) | payer OTHER, SELFPAY | PROVIDERS: PCP Nurse Practitioner Family; Visit Provider Nurse Practitioner Family | DX: M47.26 Other spondylosis with radiculopathy, lumbar region (principal); M48.061 Spinal stenosis, lumbar region without neurogenic claudication; M96.1 Postlaminectomy syndrome, not elsewhere classified; G89.4 Chronic pain syndrome; Z79.891 Long term (current) use of opiate analgesic | CPT/HCPCS: 99212 ==

== ENCOUNTER 2023-06-18 08:15 | Emergency (ER) | payer OTHER, SELFPAY ==
--- NOTE | ~2023-06-18 | XR_ITS ---
EXAMINATION: XR CHEST CLINICAL INFORMATION: Shortness of breath COMPARISON: Chest radiograph and CT chest 03/25/2021 TECHNIQUE: 2 views of the chest were obtained. FINDINGS: No significant abnormality is noted involving the heart, lungs, mediastinum, bony thorax or soft tissues. Again seen is a punctate calcified left upper lobe granuloma. XR/XR chest 2V IMPRESSION: Unremarkable examination.
[2023-06-18 08:24] VITALS: BP 153/67; PULSE 121; RESP 20; TEMP 38.1; O2SAT 96; BMI 29.0
[2023-06-18] MEDS: Acetaminophen 325 MG TABLET 650 MG PO (08:30)
[2023-06-18 08:45] LABS: MANUAL DIFF FLAG NO
[2023-06-18 08:47] LABS: Basophils Percent Auto 0.4 % (0-2); Eosinophils Absolute Auto 0.1 X10*3/uL (0.0-0.4); Eosinophils Percent Auto 1.7 % (0-4); Hematocrit 40.2 % (42.0-52.0); Hemoglobin 13.3 g/dl (14.0-18.0); Imm Gran Abs Auto 0.02 X10*3/uL (0.00-0.03); Imm Gran Pct Auto 0.3 % (0.0-0.4); Lymphocytes Absolute Auto 0.8 X10*3/uL (1.2-4.9); Lymphocytes Percent Auto 11.7 % (20-40); Mean Corpuscular HGB Conc 33.1 g/dl (31.0-36.0); Mean Corpuscular Hemoglobin 29.2 pg (27.0-33.0); Mean Corpuscular Volume 88.4 fL (80.0-98.0); Mean Platelet Volume 10.4 fL (9.4-12.4); Monocytes Absolute Auto 0.7 X10*3/uL (0.1-1.2); Monocytes Percent Auto 10.5 % (2-11); Neutrophils Absolute Auto 5.3 x10*3/uL (2.0-8.3); Neutrophils Percent Auto 75.4 % (45-73); Platelet Count 158 X10*3/uL (160-400); Red Blood Count 4.55 X10*6/uL (4.60-5.80); Red Cell Distribution Width 12.7 % (11.0-16.0)
--- NOTE | 2023-06-18 08:56 | ECG_ITS ---
Test Reason : sob Blood Pressure : / mmHG Vent. Rate : 106 BPM Atrial Rate : 106 BPM P-R Int : 148 ms QRS Dur : 114 ms QT Int : 324 ms P-R-T Axes : 050 -57 067 degrees QTc Int : 430 ms Sinus tachycardia Incomplete right bundle branch block Left anterior fascicular block Moderate voltage criteria for LVH, may be normal variant ( R in aVL , Raymundo product ) Abnormal ECG When compared with ECG of 20-AUG-2022 20:03, No significant change was found Referred By: Samuel Ring Electronically Signed By:RENÉ CROW MD
--- NOTE | 2023-06-18 08:57 | ED.GENADULT ---
HPI - General Adult General Chief complaint: Upper Respiratory Symptoms Stated complaint: Cough/Back pain Time Seen by Provider: 06/18/23 08:37 History of Present Illness HPI narrative: The patient is a 62-year-old male who says that he started feeling unwell yesterday with a cough. He says he has had a dry cough. He has pain in his chest with coughing. He has also had a headache and feels fatigued. He says that he felt like this once before when he had pneumonia. No pain or swelling in his legs. No sputum production. No nausea or vomiting. Related Data Home Medications Medication Instructions Recorded Confirmed fenofibrate 54 mg tablet 54 mg PO DAILY 12/22/22 05/07/23 syringe with needle 3 mL 18 x 1 #100 ea 04/26/23 05/07/23 1/2 (BD Luer-Pilo Syringe) Previous Rx's Medication Instructions Recorded blood-glucose meter (FreeStyle #1 ea 06/06/21 Lite Meter kit) sildenafil 50 mg tablet (Viagra) 50 mg PO DAILY PRN sexual activity 10/30/22 #30 tabs acetaminophen 650 mg 650 mg PO Q8H PRN pain 30 days #90 11/24/22 tablet,extended release (Tylenol tabs Arthritis Pain) meloxicam 15 mg tablet 15 mg PO DAILY PRN pain 30 days 12/22/22 #30 tabs atorvastatin 20 mg tablet 20 mg PO BEDTIME 30 days #30 tabs 03/23/23 blood sugar diagnostic (FreeStyle #100 ea 03/23/23 Lite Strips) lancets 28 gauge (FreeStyle #100 ea 03/23/23 Lancets) insulin syringe-needle U-100 1 mL #10 ea 03/27/23 30 gauge x 5/16 (Advocate Syringes) testosterone cypionate 200 mg/mL 200 mg IM Q2W 4 weeks #2 mL 03/27/23 intramuscular oil (Depo-Testosterone) linagliptin 5 mg tablet (Tradjenta) 5 mg PO DAILY #90 tabs 04/11/23 safety needles 25 gauge x 1 1/2 #2 ea 04/11/23 (BD Eclipse Luer-Pilo) omeprazole 40 mg capsule,delayed 40 mg PO DAILY #90 caps 04/12/23 release syringe with cannula,disposabl 3 #2 ea 01/30/24 mL 18 x 1 gabapentin 300 mg capsule 300 mg PO BID pain 90 days #180 05/31/23 caps methadone 10 mg tablet 10 mg PO BID pain 30 days #60 tabs 05/31/23 oseltamivir 75 mg capsule 75 mg PO BID 5 days #9 caps 06/18/23 Allergies Allergy/AdvReac Type Severity Reaction Status Date / Time fentanyl Allergy Intermediate itching Verified 05/31/23 08:32 morphine [Amber] Allergy Intermediate itch Verified 05/31/23 08:32 Iodinated Contrast Media Allergy Mild DIFFICULTY Verified 05/31/23 08:32 [IV Dye, Iodine Containing] BREATHING,VOMITING amoxicillin [From Augmentin] AdvReac Intermediate Diarrhea Verified 05/31/23 08:32 clavulanic acid AdvReac Intermediate Diarrhea Verified 05/31/23 08:32 [From Augmentin] metformin AdvReac Intermediate stomach Verified 05/31/23 08:32 pain Review of Systems Review of Systems: Yes all other systems are reviewed and are negative [facility] Past Medical History Medical History Pre-op examination Colon cancer screening Left otitis media Weight loss, abnormal Nausea Irritable bowel syndrome with diarrhea Normal routine history and physical examination Low back pain Laboratory tests ordered as part of a complete physical exam (CPE) BPH (benign prostatic hyperplasia) Poison derek dermatitis Hx of iron deficiency anemia Screening PSA (prostate specific antigen) Lumbar spondylosis Iron deficiency anemia Normal physical exam Anemia Sepsis Acute respiratory failure with hypoxia Pneumonia History of COVID-19 History of 2019 novel coronavirus disease (COVID-19) High cholesterol Arthritis Diabetes Contact dermatitis Narcotic drug use DMII (diabetes mellitus, type 2) Elevated liver transaminase level Lumbar radiculopathy, chronic Lumbar spinal stenosis Cervical radiculopathy Lumbar post-laminectomy syndrome Surgical History History of esophagogastroduodenoscopy (EGD) H/O colonoscopy History of elbow surgery History of lumbar fusion History of cholecystectomy Family History Family History Father Liver problem Alcoholism Substance use disorder Mother No problems noted. Brother CAD (coronary artery disease) Social History Social History Household Members: Family Housing: House Do you presently have visiting nurse or other home services: No Alcohol intake: never Patient Tobacco Use Status: Former Tobacco user Cigarette Packs Per Day: 0.5 Cigarettes Per Day: 10 Years Smoked: 10 Smoked in Last 30 Days: No e-Cigarette/Vaping Use: Never Used Second Hand Smoke Exposure: No Use of substances other than those prescribed or required for medical reasons: No Advance Directives: No Advance Directives Information Provided: No service: No Current occupational status: disabled Current occupational exposures/hazards: No Cognitive needs: No (cane) Hearing needs: No Vision needs: Yes (reading glasses) Physical Exam ED Vital Signs: Vital Signs - 24 hr 06/18/23 08:24 06/18/23 09:15 06/18/23 10:38 Temperature 100.6 F H 98.8 F Pulse Rate 121 H 106 H 99 Respiratory Rate 20 19 19 Blood Pressure 153/67 H 111/71 Pulse Oximetry 96 97 Oxygen Delivery Method Room Air Room Air 06/18/23 10:38 06/18/23 11:01 Temperature 98.8 F Pulse Rate 99 Respiratory Rate 19 Blood Pressure 111/71 Pulse Oximetry 97 97 Oxygen Delivery Method Room Air Room Air BMI result Body Mass Index 29.0 Const Other: The patient is awake and alert. Pleasant and cooperative. Does not appear obviously ill. HENMT Other: Face is symmetrical. Posterior pharynx is unremarkable. Mucous membranes moist. Eyes Other: Pupils are round equal, conjunctivae are clear Neck Other: No cervical adenopathy Resp Effort & Inspection: normal respiratory effort Auscultation: clear to auscultation bilaterally Cardio Rate: tachycardic Rhythm: regular rhythm Heart sounds: S1 normal heart sound present and S2 normal heart sound present GI Other: Abdomen is soft and nontender Skin Other: Skin is dry and unremarkable Neuro Other: The patient is awake and alert. Mental status is normal. He is grossly neurologically intact. Extrem Other: No calf swelling or tenderness. No asymmetry. No edema. Medications Administered Discontinued Medications Generic Name Dose Route Start Last Admin Trade Name Freq PRN Reason Stop Dose Admin Acetaminophen 650 mg 06/18/23 08:27 06/18/23 08:30 Acetaminophen 325 Mg Tablet PO 06/18/23 08:28 650 mg ONCE ONE Administration Acetaminophen 975 mg 06/18/23 08:56 06/18/23 09:11 Acetaminophen 325 Mg Tablet PO 06/18/23 08:57 Not Given ONCE ONE Oseltamivir Phosphate 75 mg 06/18/23 10:51 06/18/23 10:59 Oseltamivir Phosphate 75 Mg Capsule PO 06/18/23 10:52 75 mg ONCE ONE Administration Medical Decision Making Medical Decision Making [facility] Narrative: Who presents with symptoms of an illness that started just under 24 hours ago. He describes feeling ill with a cough and general aches and pains including headache. He was mildly tachycardic and febrile. He did not appear toxic or in distress. Chest x-ray is clear. Blood work is unremarkable. Viral testing is positive for influenza. I think this is a case of influenza a without any complications. He will be started on oseltamivir as his symptoms began just under 24 hours ago. He looks well enough for outpatient management. Lab Data 06/18/23 08:41 06/18/23 08:41 Labs: Lab Results 06/18/23 06/18/23 Range/Units 08:41 08:48 WBC 7.0 (4.8-10.8) X10*3/uL RBC 4.55 L (4.60-5.80) X10*6/uL Hgb 13.3 L (14.0-18.0) g/dl Hct 40.2 L (42.0-52.0) % MCV 88.4 (80.0-98.0) fL MCH 29.2 (27.0-33.0) pg MCHC 33.1 (31.0-36.0) g/dl RDW 12.7 (11.0-16.0) % Plt Count 158 L (160-400) X10*3/uL MPV 10.4 (9.4-12.4) fL Immature Gran % (Auto) 0.3 (0.0-0.4) % Neut % (Auto) 75.4 H (45-73) % Lymph % (Auto) 11.7 L (20-40) % [place] % (Auto) 10.5 (2-11) % Eos % (Auto) 1.7 (0-4) % Baso % (Auto) 0.4 (0-2) % Lymph # (Auto) 0.8 L (1.2-4.9) X10*3/uL [place] # (Auto) 0.7 (0.1-1.2) X10*3/uL Eos # (Auto) 0.1 (0.0-0.4) X10*3/uL Baso # (Auto) 0.0 (0.0-0.2) X10*3/uL Abs Immat Gran (auto) 0.02 (0.00-0.03) X10*3/uL Absolute Neuts (auto) 5.3 (2.0-8.3) x10*3/uL Absolute Nucleated RBC 0.000 (0.0-0.012) X10*3/uL Nucleated RBC % (auto) 0.0 (0.0-0.2) /100WBC Sodium 137 (135-145) mmol/L Potassium 4.1 (3.3-5.1) mmol/L Chloride 105 (96-108) mmol/L Carbon Dioxide 23 (22-29) mmol/L Anion Gap 13 (12-20) BUN 16 (9-16) mg/dL Creatinine 0.85 (0.5-1.4) mg/dL Estim Creat Clear Calc 118.0 Estimated GFR > 60 Random Glucose 197 H (60-115) mg/dL Calcium 9.0 D (8.4-10.2) mg/dL Troponin I High Sens < 2.7 (<3.5-35.0) ng/L C-Reactive Protein 1.07 H (< or = 0.50) mg/dL Influenza Type A (PCR) POSITIVE A (Negative) Influenza Type B (PCR) NEGATIVE (Negative) RSV RNA Qual (PCR) NEGATIVE (Negative) SARS-CoV-2 RNA (RT-PCR) NEGATIVE (Negative) Independent Interpretation I performed an independent interpretation of an: EKG Interpretation: EKG at 09:07 shows sinus tachycardia at 106 beats per minute. No significant change from previous EKG Discharge Plan Discharge Clinical Impression: Influenza A Patient Disposition: Home, Self-Care Instructions: Influenza (ED) Additional Instructions: You have tested positive today for the flu. Specifically you have tested positive for influenza A. You have been started on a medicine to help treat your flu. This is called oseltamivir (also known as Tamiflu). Please take this medication 2 times a day. Next dose this evening. Ibuprofen and acetaminophen as needed for pain and discomfort. Please stay in touch with your regular doctor's office as needed. Return to the emergency room if you feel significantly worse. Prescriptions: New oseltamivir 75 mg capsule 75 mg PO BID 5 Days Qty: 9 0RF No Action testosterone cypionate [Depo-Testosterone] 200 mg/mL oil 200 mg IM Q2W 28 Days Qty: 2 0RF (DME) insulin syringe-needle U-100 [Advocate Syringes] 1 mL 30 gauge x 5/16 syringe See Rx Instructions .Route Qty: 10 1RF Rx Instructions: As directed (DME) BD Eclipse Luer-Pilo 25 gauge x 1 1/2 needle See Rx Instructions .ROUTE .MEDSUPPLY Qty: 2 5RF Rx Instructions: As directed for biweekly injection (injecting needle)- 2 per month Tradjenta 5 mg tablet 5 mg PO DAILY Qty: 90 3RF (DME) syringe with cannula,disposabl 3 mL 18 x 1 syringe See Rx Instructions .Route Qty: 2 5RF Rx Instructions: As directed for biweekly Testosterone injection- 2 per month (DME) blood-glucose meter [FreeStyle Lite Meter] Kit See Rx Instructions .ROUTE .MEDSUPPLY Qty: 1 0RF Rx Instructions: check blood sugars daily and pern (DME) lancets [FreeStyle Lancets] 28 gauge misc See Rx Instructions .ROUTE .MEDSUPPLY Qty: 100 4RF Rx Instructions: POC testing 4 times daily (DME) FreeStyle Lite Strips Strip See Rx Instructions .ROUTE .MEDSUPPLY Qty: 100 4RF Rx Instructions: POC 4 times daily atorvastatin 20 mg tablet 20 mg PO BEDTIME 30 Days Qty: 30 3RF acetaminophen [Tylenol Arthritis Pain] 650 mg tablet extended release 650 mg PO Q8H PRN (Reason: pain) 30 Days Qty: 90 0RF meloxicam 15 mg tablet 15 mg PO DAILY PRN (Reason: pain) 30 Days Qty: 30 0RF fenofibrate 54 mg tablet 54 mg PO DAILY omeprazole 40 mg capsule,delayed release(DR/EC) 40 mg PO DAILY Qty: 90 1RF (DME) BD Luer-Pilo Syringe 3 mL 18 x 1 1/2 syringe See Rx Instructions .ROUTE .MEDSUPPLY Qty: 100 Rx Instructions: As directed methadone 10 mg tablet 10 mg PO BID 30 Days Qty: 60 0RF Rx Instructions: Partial Fill upon patient request. gabapentin 300 mg capsule 300 mg PO BID 90 Days Qty: 180 6RF sildenafil [Viagra] 50 mg tablet 50 mg PO DAILY PRN (Reason: sexual activity) Qty: 30 0RF Rx Instructions: administer 30 minutes to 4 hours before activity, take 1/2 tab to one tab 30 minutes prior to intercourse BIN N Group [facility] [id number] Referrals: Eldon Caro CNP [Primary Care Provider] - (Influenza A) Interventions: ED Discharge Assessment Last Done: 06/18/23 11:01 Discharge Date/Time: 06/18/23 11:02
[2023-06-18 09:02] LABS: Anion Gap 13 (12-20); Blood Urea Nitrogen 16 mg/dL (9-16); Carbon Dioxide 23 mmol/L (22-29); Chloride 105 mmol/L (96-108); Estimated Glomerular Filt Rate > 60; Glucose Random 197 mg/dL (60-115); Potassium 4.1 mmol/L (3.3-5.1); Sodium 137 mmol/L (135-145)
[2023-06-18 09:11] LABS: Troponin-I High Sensitivity < 2.7 ng/L (<3.5-35.0)
[2023-06-18 09:13] LABS: C Reactive Protein 1.07 mg/dL (< or = 0.50)
[2023-06-18 09:15] VITALS: PULSE 106; RESP 19
[2023-06-18 09:34] LABS: Influenza A PCR POSITIVE (Negative); Influenza B PCR NEGATIVE (Negative); Resp Syncy Virus RNA Qual PCR NEGATIVE (Negative); SARS COV2 PCR INHOUSE NEGATIVE (Negative)
[2023-06-18 10:38] VITALS: BP 111/71; PULSE 99; RESP 19; TEMP 37.1; O2SAT 97
[2023-06-18] MEDS: Oseltamivir Phosphate 75 MG CAPSULE PO (10:59)
[2023-06-18 11:01] VITALS: BP 111/71; PULSE 99; RESP 19; TEMP 37.1; O2SAT 97
== END 2023-06-18 11:02 | disposition home or self-care (01) ==
PROVIDERS: Emergency Provider Emergency Medicine; PCP Nurse Practitioner Family
DX: J10.1 Influenza due to other identified influenza virus with other respiratory manifestations (principal); R00.0 Tachycardia, unspecified; R05.9 Cough, unspecified; M54.50 Low back pain, unspecified; Z11.52 Encounter for screening for COVID-19; Z20.822 Contact with and (suspected) exposure to COVID-19; Z79.899 Other long term (current) drug therapy
CPT/HCPCS: 0241U; 71046; 80048; 84484; 85025; 86140; 93005; 99283; 99285

== ENCOUNTER → 2023-06-18 08:56 | Outpatient (BNV) | payer OTHER, SELFPAY | PROVIDERS: Emergency Provider Emergency Medicine; PCP Nurse Practitioner Family; Visit Provider Internal Medicine Cardiovascular Disease | DX: R94.31 Abnormal electrocardiogram [ECG] [EKG] (principal) | CPT/HCPCS: 93010 ==

== ENCOUNTER 2023-06-26 06:02 | Outpatient (REF) | payer OTHER, SELFPAY ==
[2023-06-26 07:14] LABS: Hematocrit 41.6 % (42.0-52.0); Hemoglobin 13.9 g/dl (14.0-18.0); Mean Corpuscular HGB Conc 33.4 g/dl (31.0-36.0); Mean Corpuscular Hemoglobin 29.3 pg (27.0-33.0); Mean Corpuscular Volume 87.8 fL (80.0-98.0); Mean Platelet Volume 10.8 fL (9.4-12.4); Platelet Count 229 X10*3/uL (160-400); Red Blood Count 4.74 X10*6/uL (4.60-5.80); Red Cell Distribution Width 12.3 % (11.0-16.0); White Blood Count 4.9 X10*3/uL (4.8-10.8)
[2023-06-26 07:32] LABS: Cholesterol 235 mg/dL (<200); HDL Cholesterol 43 mg/dL (>40); LDL Cholesterol Calculated 146 mg/dL (<100); Triglycerides 234 mg/dL (<150)
[2023-06-26 07:56] LABS: PSA,Total (Free>4and<10) 0.66 ng/mL (0.00-4.00)
[2023-06-30 13:43] LABS: Testosterone, Total 206 ng/dL (250-1100)
== END 2023-06-26 06:03 | disposition home or self-care (01) ==
LOC: HO.LAB 06:02
PROVIDERS: Absent Provider Urology; PCP Nurse Practitioner Family; Visit Provider Nurse Practitioner Family
DX: Z12.5 Encounter for screening for malignant neoplasm of prostate (principal); Z13.6 Encounter for screening for cardiovascular disorders; E29.1 Testicular hypofunction
CPT/HCPCS: 36415; 80061; 84153; 84402; 84403; 85027

== ENCOUNTER 2023-06-28 08:05 | Outpatient (AMB) | payer OTHER, SELFPAY ==
--- NOTE | 2023-06-28 08:08 | A.OFFVIS_ITS ---
Intake Visit Reasons: 4m/US/labs(CBC/T/PSA) Intake Note: Patient presents today for a follow-up Labs Results: Testo Labs still pending Meds- Sildenafil & Testosterone Depo Allergies to Antibiotic- Amoxicillin Blood Thinner- None Retail Loss Prevention Specialist Required: No Accompanied by: Self / Same As Patient Allergies fentanyl Allergy (Intermediate, Verified 07/05/23 08:32) itching morphine [Amber] Allergy (Intermediate, Verified 07/05/23 08:32) itch Iodinated Contrast Media [IV Dye, Iodine Containing] Allergy (Mild, Verified 07/05/23 08:32) DIFFICULTY BREATHING,VOMITING amoxicillin [From Augmentin] Adverse Reaction (Intermediate, Verified 07/05/23 08:32) Diarrhea clavulanic acid [From Augmentin] Adverse Reaction (Intermediate, Verified 07/05/23 08:32) Diarrhea metformin Adverse Reaction (Intermediate, Verified 07/05/23 08:32) stomach pain HPI Comments Details: 06/28/2023-- Sridhar is a 62-year-old male who presents today to the office for follow up to review lab results, I have reviewed PSA 06/26/2023--0.66 ng/mL. CBC is within normal limits. Testosterone levels are pending. The patient did not have the renal ultrasound done to follow-up on management for kidney stones. Sridhar states that when he uses the Viagra 50 mg he does not get adequate effect. He states that he ordered a medication online that seems to work better. I asked him what was the medication he stated that he did not know. I have advised him to avoid using medications ordered online. I have discussed increasing the Viagra to 100 mg. Plan-testosterone levels are pending I will wait for these results before refilling testosterone replacement therapy. Renal ultrasound ordered. Follow- up in 3 months to recheck lab work and follow-up on ultrasound. Viagra 100 mg p.r.n. prior to sexual activity. Side effects discussed including erection longer than 4 hours to seek immediate emergency room attention. Review of chart: 02/26/2023--Sridhar is a 62 year old male with complaint of difficulty maintaining and erection.? IIEF - 5 score 8. in a monagamous relationship, able to achieve an erection for penetration, --complains of early ejaculation then sometimes able to get an erection sometimes not successful --states is causing him to be anxious about the situation, states order some meds online --(testosterone boosters and another med to help erections which seemed to help) He denies Urgency or obstructive voiding symptoms, denies dysuria CoMorbidities- Diabetes, h/o narcotic use on methadone I reviewed Repeat Testosterone levels: 01/19/23-- TT- 158, FT- 25 He was initially evaluated on 05/01/2022 as a new patient for erectile dysfunction and complaints of premature ejaculation. He was prescribed Paxil 20 mg and Viagra 50 mg to use prior to intercourse prn. He developed nausea secondary to taking Paxil 20 mg so is not taking this med. he is on methadone.?- trial of paxil 20 mg daily-pt stopped. Viagra 50 (1/2-1 tab prn 30 minutes clotilde or to intercourse) Plan--Failed Testosterone 20.25 mg per 1.25 gram pump, Depo Testosterone ordered. Viagra prn. Follow up in 4 months to recheck testosterone level. left kidney stone, FU renal US Imagin11/26/20-CTKUB --left kidney stone 5 mm?? renal US results from 10/19/22 which revealed 6 mm non obstructive left lower pole kidney stone. Review of labs: 10/19/2022 revealed PSA?0.61, total testosterone 215 which is low, and free testosterone 40.99 which is low normal. 06/28/2023--Plan-testosterone levels are pending I will wait for these results before refilling testosterone replacement therapy. Renal ultrasound ordered. Follow-up in 3 months to recheck lab work and follow-up on ultrasound. Viagra 100 mg p.r.n. prior to sexual activity. Side effects discussed including e rection longer than 4 hours to seek immediate emergency room attention. [facility] Medical History Pre-op examination Colon cancer screening Left otitis media Weight loss, abnormal Nausea Irritable bowel syndrome with diarrhea Normal routine history and physical examination Low back pain Laboratory tests ordered as part of a complete physical exam (CPE) BPH (benign prostatic hyperplasia) Poison derek dermatitis Hx of iron deficiency anemia Screening PSA (prostate specific antigen) Lumbar spondylosis Iron deficiency anemia Normal physical exam Anemia Sepsis Acute respiratory failure with hypoxia Pneumonia History of COVID-19 History of 2019 novel coronavirus disease (COVID-19) High cholesterol Arthritis Diabetes Contact dermatitis Narcotic drug use DMII (diabetes mellitus, type 2) Elevated liver transaminase level Lumbar radiculopathy, chronic Lumbar spinal stenosis Cervical radiculopathy Lumbar post-laminectomy syndrome Surgical History History of esophagogastroduodenoscopy (EGD) H/O colonoscopy History of elbow surgery History of lumbar fusion History of cholecystectomy Family History Father Liver problem Alcoholism Substance use disorder Mother No problems noted. Brother CAD (coronary artery disease) Social History Household Members: Family Housing: House Do you presently have visiting nurse or other home services: No Alcohol intake: never Patient Tobacco Use Status: Former Tobacco user Cigarette Packs Per Day: 0.5 Cigarettes Per Day: 10 Years Smoked: 10 e-Cigarette/Vaping Use: Never Used Second Hand Smoke Exposure: No service: No Current occupational status: disabled Current occupational exposures/hazards: No Cognitive needs: No (cane) Hearing needs: No Vision needs: Yes (reading glasses) Review of Systems Const All systems reviewed & are unremarkable except as noted in HPI and below Reports no additional complaints Eyes Reports no additional complaints ENT Reports no additional complaints Card Reports no additional complaints Resp Reports no additional complaints GI Reports no additional complaints Reports as per HPI Musc Reports no additional complaints Skin/Breast Reports system reviewed and no additional complaints, except as documented Neuro Reports no additional complaints Psych Reports no additional complaints Endo Reports no additional complaints Barrie/Lymph Reports no additional complaints Aller/Immun Reports no additional complaints Results AMB Urinalysis, Automated UA Leukoctes 0 Rashard/uL Last Edit by EDWARD Quintanilla on 06/28/23 08:20 UA Nitrite Negative Last Edit by Alonso Larsen Ramon on 06/28/23 08:20 UA Urobilinogen 0.2 mg/dL Last Edit by EDWARD Quintanilla on 06/28/23 08:2 0 UA Protein 30 mg/dL Last Edit by Alonso Larsen [facility] on 06/28/23 08:20 1+ Alonso Larsen 06/28/23 08:20 UA pH 6.0 Last Edit by Alonso Larsen A on 06/28/23 08:20 UA Blood 0 Ma[place]ick/uL Last Edit by Alonso Larsen [facility] on 06/28/23 08:20 UA Specific [place] 1.025 Last Edit by Alonso Larsen Ramon on 06/28/23 08: 20 UA Ketone Negative Last Edit by Alonso Larsen [facility] on 06/28/23 08:20 UA Bilirubin 0 mg/dL Last Edit by Alonso Larsen Ramon on 06/28/23 08:20 UA Glucose 100 mg/dL Last Edit by Alonso Larsen [facility] on 06/28/23 08:20 Results Reviewed Results Reviewed: Laboratory Last Values Urine pH (Auto) 6.0 06/28/23 08:09 Specific [place] (Auto) 1.025 06/28/23 08:09 Urine Protein (Auto) 30 mg/dL 06/28/23 08:09 Glucose (UA)(Auto) 100 mg/dL 06/28/23 08:09 Urine Ketones (Auto) Negative 06/28/23 08:09 Urine Blood (Auto) 0 [place]/uL 06/28/23 08:09 Urine Nitrite (Auto) Negative 06/28/23 08:09 Urine Bilirubin (Auto) 0 mg/dL 06/28/23 08:09 Urine Urobilinogen (Auto) 0.2 mg/dL 06/28/23 08:09 Leukocyte Esterase (Auto) 0 Rashard/uL 06/28/23 08:09 Assessment & Plan Assessment & Plan (1) Kidney stone: Code(s): N20.0 - Calculus of kidney Category: Medical (2) Kidney stone on left side: Code(s): N20.0 - Calculus of kidney Category: Medical (3) Hypogonadism in male: Code(s): E29.1 - Testicular hypofunction Category: Medical (4) Erectile dysfunction: Code(s): N52.9 - Male erectile dysfunction, unspecified Category: Medical Plan he is on methadone.?-trial of paxil 20 mg daily-pt stopped. Viagra 50 (1/2-1 tab prn 30 minutes prior to intercourse) Plan--Failed Testosterone 20.25 mg per 1.25 gram pump, Depo Testosterone ordered. Viagra prn. Follow up in 4 months to recheck testosterone level. left kidney stone, FU renal US Orders: Orders AMB Urinalysis Automated 06/28/23 Z13.9 - Encounter for screening, unspecified US renal BI 06/28/23 N20.0 - Calculus of kidney Patient Instructions: The patient had an opportunity to ask questions regarding treatment plan. All questions were answered. Laboratory studies were discussed and reviewed in detail. No major barriers to understanding were identified. The patient expressed understanding and agreement with the above treatment plan. The patient is aware they should contact our office by phone for worsening of their current condition or the appearance of new symptoms. Compliance is encouraged with any medications and followup testing that is ordered. It is a privilege to be allowed the opportunity to participate in the urologic care of your patient. If you have any questions or concerns regarding treatment for the above conditions please do not hesitate to contact me. The office telephone contact is [phone]. This note is constructed in part using voice recognition software. While every effort has been made to ensure accuracy electronics technician errors may have been included. Yours sincerely, Arya Lopez MD Coding Level of Care Code Est Pt Level 4 (19611) Diagnoses Kidney stone N20.0 Kidney stone on left side N20.0 Hypogonadism in male E29.1 Erectile dysfunction N52.9
== END 2023-06-28 08:45 | disposition home or self-care (01) ==
PROVIDERS: PCP Hospitalist; Visit Provider Urology
DX: N20.0 Calculus of kidney (principal); E29.1 Testicular hypofunction; N52.9 Male erectile dysfunction, unspecified
CPT/HCPCS: 99214

== ENCOUNTER → 2023-06-28 08:05 | Outpatient (BNVA) | payer OTHER, SELFPAY | PROVIDERS: PCP Hospitalist; Visit Provider Urology | DX: N20.0 Calculus of kidney (principal); E29.1 Testicular hypofunction; N52.9 Male erectile dysfunction, unspecified | CPT/HCPCS: 81003; 99212 ==

== ENCOUNTER 2023-07-02 10:15 | Outpatient (AMB) | payer OTHER, SELFPAY ==
--- NOTE | 2023-07-02 10:25 | MHC.PC.OV ---
Vital Signs 07/02/23 10:33 Height 6 ft 2 in Weight 228 lb 2 oz BMI 29.3 BP 124/72 Blood Pressure Location Lt brachial Position Sitting Respiration 16 Pulse 88 Pulse Source Pulse Oximeter Temp 97.9 F Temp Source Oral Pulse Oximetry (%) 96 Oxygen Delivery Method Room Air Intake Visit Reasons: 2 wks anxiety, depression Intake Note: Two week follow up anxiety and depression. vibration in jaw up to left ear when biting down. Refill Viagra. Blood work for testosterone and refill needed. Allergies fentanyl Allergy (Intermediate, Verified 07/02/23 10:38) itching morphine [Amber] Allergy (Intermediate, Verified 07/02/23 10:38) itch Iodinated Contrast Media [IV Dye, Iodine Containing] Allergy (Mild, Verified 07/02/23 10:38) DIFFICULTY BREATHING,VOMITING amoxicillin [From Augmentin] Adverse Reaction (Intermediate, Verified 07/02/23 10:38) Diarrhea clavulanic acid [From Augmentin] Adverse Reaction (Intermediate, Verified 07/02/23 10:38) Diarrhea metformin Adverse Reaction (Intermediate, Verified 07/02/23 10:38) stomach pain Medication List - Last Reconciled 07/02/23 by Eldon Caro CNP acetaminophen ER (Tylenol Arthritis Pain) 650 mg PO Q8H PRN 30 days atorvastatin 20 mg PO BEDTIME 30 days blood sugar diagnostic (FreeStyle Lite Strips) POC 4 times daily blood-glucose meter (FreeStyle Lite Meter kit) check blood sugars daily and pern fenofibrate 54 mg PO DAILY 90 days gabapentin 300 mg PO BID 90 days insulin syringe-needle U-100 (Advocate Syringes) As directed lancets (FreeStyle Lancets) POC testing 4 times daily linagliptin (Tradjenta) 5 mg PO DAILY meloxicam 15 mg PO DAILY PRN 30 days methadone 10 mg PO BID 30 days omeprazole 40 mg PO DAILY safety needles (BD Eclipse Luer-Pilo) As directed for biweekly injection (injecting needle)- 2 per month sildenafil (Viagra) 50 mg PO DAILY PRN syringe with cannula,disposabl As directed for biweekly Testosterone injection- 2 per month syringe with needle (BD Luer-Pilo Syringe) As directed testosterone cypionate (Depo-Testosterone) 200 mg IM Q2W 4 weeks Tobacco use date assessed: 03/23/23 Dental Screening Dental Screen Date: 07/02/23 Did you have a dental visit in the last 12 months?: Yes Did you have a dental problem in the last 6 months where you did not have access to dental care?: No Was dental information given to patient?: Patient has dentist HPI HPI Comments History of Present Illness Details 62-year-old male presents for anxiety and depression follow-up. He was last evaluated about 2 weeks ago for depression and anxiety which he attributed to marital issues. He had plans of moving out of the house and noted that his situation would improve after that. He also had plan of connecting with a therapist. He declined medication treatment for anxiety and depression symptoms. He reports improved anxiety and anxiety symptoms. He notes that things are presently better in the how with his and family, even though It's not 100%, maybe things are 75% better. He notes that he started weekly psychotherapy with a therapist every Sunday. He has an appointment later this month to connect with a psychiatrist at [facility]. He reports vibration in jaw left jaw to his left ear when biting down for the past 2-3 weeks. No pain,tingling, numbness, loss of sensation or other associated symptoms. [facility] Medical History Pre-op examination Colon cancer screening Left otitis media Weight loss, abnormal Nausea Irritable bowel syndrome with diarrhea Normal routine history and physical examination Low back pain Laboratory tests ordered as part of a complete physical exam (CPE) BPH (benign prostatic hyperplasia) Poison derek dermatitis Hx of iron deficiency anemia Screening PSA (prostate specific antigen) Lumbar spondylosis Iron deficiency anemia Normal physical exam Anemia Sepsis Acute respiratory failure with hypoxia Pneumonia History of COVID-19 History of 2019 novel coronavirus disease (COVID-19) High cholesterol Arthritis Diabetes Contact dermatitis Narcotic drug use DMII (diabetes mellitus, type 2) Elevated liver transaminase level Lumbar radiculopathy, chronic Lumbar spinal stenosis Cervical radiculopathy Lumbar post-laminectomy syndrome Surgical History History of esophagogastroduodenoscopy (EGD) H/O colonoscopy History of elbow surgery History of lumbar fusion History of cholecystectomy Family History Father Liver problem Alcoholism Substance use disorder Mother No problems noted. Brother CAD (coronary artery disease) Social History Household Members: Family Housing: House Do you presently have visiting nurse or other home services: No Alcohol intake: never Patient Tobacco Use Status: Former Tobacco user Cigarette Packs Per Day: 0.5 Cigarettes Per Day: 10 Years Smoked: 10 e-Cigarette/Vaping Use: Never Used Second Hand Smoke Exposure: No service: No Current occupational status: disabled Current occupational exposures/hazards: No Cognitive needs: No (cane) Hearing needs: No Vision needs: Yes (reading glasses) Questionnaire PHQ-9 Over the last 2 weeks, how often have you been bothered by any of the following problems? 1. Little interest or pleasure in doing things: several days 2. Feeling down, depressed, or hopeless: several days 3. Trouble falling or staying asleep, or sleeping too much: several days 4. Feeling tired or having little energy: more than half the days 5. Poor appetite or overeating: several days 6. Feeling bad about yourself - or that you are a failure or have let yourself or your family down: several days 7. Trouble concentrating on things, such as reading the newspaper or watching television: several days 8. Moving or speaking so slowly that other people could have noticed. Or the opposite - being so fidgety or restless that you have been moving around a lot more than usual: several days 9. Thoughts that you would be better off or of hurting yourself in some way: not at all Total score: 9 Depression Screening Interpretation: Positive Depression Screening Follow-up: Existing condition and In treatment Depression Screening Done: Yes 68697 - PHQ-9 Billing: Yes Source: Developed by Drs. Enrico Chiang, Kassandra Neville, Farhat Pandey and colleagues, with an educational mann from [employer]. Thrive Questionnaire Date Thrive assessed: 03/23/23 NICOLE-7 AMB Questionnaire NICOLE-7 Date NICOLE - 7 assessed: 05/07/23 Feeling nervous, anxious, or on edge: 1 = Several days Not being able to stop or control worryin = Several days Worrying too much about different things: 1 = Several days Trouble relaxin = Several days Being so restless that it is hard to sit still: 1 = Several days Becoming easily annoyed or irritable: 1 = Several days Feeling afraid as if something awful might happen: 1 = Several days Total NICOLE-7 score (0-4 normal; 5-9 mild; 10-14 moderate; 15-21 severe): 7 Source: Developed by Drs. Enrico Chiang, Kassandra Neville, Farhat Pandey and colleagues, with an educational mann from [employer]. Review of Systems Const Details: Const Denies chills, Denies fatigue, Denies fever(s), Denies headache(s) and Denies weakness ENT Reports as per HPI Card Denies chest pain, Denies lightheadedness, Denies dyspnea and Denies other (Palpitations) Resp Denies cough, Denies dyspnea, Denies wheezing and Denies other ( shortness of breath) GI Denies abdominal pain, Denies melena, Denies hematochezia, Denies change in bowel habits, Denies dyspepsia and Denies nausea Denies hematuria and Denies dysuria Musc Denies abnormal gait, Denies myalgias, Denies arthralgias, Denies numbness and Denies tingling Skin/Breast Denies rash, Denies unusual bruising and Denies wounds Neuro Denies abnormal gait, Denies dizziness, Denies headache(s), Denies memory loss, Denies numbness, Denies Sensory deficit (Neuro), Denies tingling and Denies weakness Psych Reports anxiety, Reports depression, Denies memory loss Endo Denies cold intolerance, Denies fatigue, Denies heat intolerance, Denies polydipsia and Denies polyuria Aller/Immun Denies wheezing Physical exam (Primary Care) Vital Signs: Last Vital Signs Temp 97.9 F 07/02/23 10:33 Pulse 88 07/02/23 10:33 Resp 16 07/02/23 10:33 BP 124/72 07/02/23 10:33 Pulse Ox 96 07/02/23 10:33 Oxygen Delivery Method Room Air 07/02/23 10:33 BMI result Body Mass Index 29.3 Tobacco/Smoking Status: Tobacco use Status Tobacco use date assessed 03/23/23 07/02/23 10:31 Patient Tobacco Use Status Former Tobacco user 07/02/23 10:31 e-Cigarette/Vaping Use Never Used 07/02/23 10:31 Depression Screening Interpretation: Positive Depression Screening Follow-up: Existing condition and In treatment Thrive Assessment: Date of Thrive Assessment Date Thrive assessed 03/23/23 07/02/23 10:31 Const Other: General: no acute distress and well developed Nutritional Appearance: well nourished Orientation/consciousness: patient oriented x3 HENMT Head is normocephalic Right ear canal and TM is normal. Left TM with old perforation that are restructuring Nasal turbinates and oropharynx are pink and moist Sinuses are nontender with palpation No auricular or cervical lymphadenopathy Eyes General: appearance normal, both eyes and all related structures Pupils: Equal, round and reactive pupils present EOM: EOMs intact bilaterally Resp Effort & Inspection: normal respiratory effort Auscultation: clear to auscultation bilaterally Cardio Rate: regular rate Rhythm: regular rhythm Heart sounds: S1 normal heart sound present, S2 normal heart sound present, no gallops, no murmurs and no rubs GI Palpation (GI): No Abdominal aortic bruit present, Soft to palpation, nontender, No hepatosplenomegaly present and No Rebound tenderness present Auscultation: normal bowel sounds General: Yes no CVA tenderness Back/Spine/Pelvis Back: no CVA tenderness Cervical Spine: cervical ROM normal and No Cervical spine tenderness Thoracic/Lumbar Spine: thoraco-lumbar ROM normal, No pain with thoraco-lumbar ROM, No thoracic spinal tenderness and No lumbar spinal tenderness Extrem General: Yes normal to inspection, No edema and No calf tenderness Skin General: warm and dry. Normal skin color. Normal skin turgor Neuro General: patient oriented x3, gait normal and no focal neuro deficit Cranial nerves: Yes Equal, round and reactive pupils present Cognition (Neuro): normal cognition Gait exam (Neuro): Normal gait present Sensory Exam: No Sensory deficit (Neuro) Psych Appearance: grossly normal Affect: normal affect Attitude: cooperative Thought process: Normal thought process present Assessment and Plan Assessment & Plan (1) Anxiety and depression: Code(s): F41.9 - Anxiety disorder, unspecified; F32.A - Depression, unspecified Plan: Reports significant improvement anxiety and depression symptoms. His marital situation is presently better than a was 2 weeks ago. He has been receiving weekly psychotherapy and has an appointment to connect with a therapist later this month. PHQ-9 and NICOLE-7 scores revealed mild anxiety and depression He is still not interested in medication treatment at this time Routine exercise and deep breathing/relaxation techniques instructed and encouraged Follow-up with therapist and psychiatrist as planned Return sooner with symptoms or concerns Verbalized understanding and agreed with treatment plan (2) Hyperlipidemia: Code(s): E78.5 - Hyperlipidemia, unspecified Plan: Recent lipid panel level reviewed with the patient Triglyceride, cholesterol, and LDL levels are elevated, 234, 235, and 146 respectively. Previous lipid levels in February were slightly elevated than recent levels Will increase fenofibrate to 120 mg daily and atorvastatin to 40 mg every night. Advised to take as prescribed Encouraged to limit foods high in saturated fat and avoid foods high in trans fat Routine exercise encouraged Will repeat lipid panel levels in 6 weeks. Advised to fast for 10-12 hours, may drink water only, and get blood work done before his next visit Follow-up in 6 weeks Verbalized understanding and agreed with treatment plan (3) History of perforated ear drum: Code(s): Z86.69 - Personal history of other diseases of the nervous system and sense organs Plan: Vibration in jaw left jaw to his left ear when biting down for the past 2-3 weeks. No pain,tingling, numbness, loss of sensation Left TM appeared to have perforations that are restructuring His symptoms likely due to eustachian tube dysfunction; may be self-limiting Will trial Flonase. Advised to use as prescribed Follow-up with worsening or new symptoms. Would referred to ENT Verbalized understanding and agreed with the treatment plan Orders: Orders Lipid Panel 6 Weeks E78.5 - Hyperlipidemia, unspecified Medications: New atorvastatin 40 mg PO BEDTIME 90 days 90 tabs 1RF fluticasone propionate 50 mcg/actuation (Flonase Allergy Relief) administer into each nostril 1 spray intranasal Q12H 16 grams 1RF fenofibrate 120 mg PO DAILY 90 days 90 tabs 1RF Discontinued atorvastatin Discontinued Reason: Doctor's Order 20 mg PO BEDTIME 30 days 30 tabs 3RF fenofibrate Discontinued Reason: Doctor's Order 54 mg PO DAILY 90 days 90 tabs 1RF Coding Level of Care Code Est Pt Level 4 (77746) Diagnoses Anxiety and depression F41.9; F32.A Hyperlipidemia E78.5 History of perforated ear drum Z86.69
[2023-07-02 10:33] VITALS: BP 124/72; PULSE 88; RESP 16; TEMP 36.6; O2SAT 96; BMI 29.3
== END 2023-07-02 11:23 | disposition home or self-care (01) ==
PROVIDERS: PCP Nurse Practitioner Family; Visit Provider Nurse Practitioner Family
DX: F41.9 Anxiety disorder, unspecified (principal); F32.A Depression, unspecified; E78.5 Hyperlipidemia, unspecified; Z86.69 Personal history of other diseases of the nervous system and sense organs
CPT/HCPCS: 99214

== ENCOUNTER 2023-07-05 07:54 | Outpatient (AMB) | payer OTHER, SELFPAY ==
[2023-07-05 08:32] VITALS: BP 134/78; PULSE 87; RESP 18; O2SAT 98; BMI 29.3
--- NOTE | 2023-07-05 08:32 | MHC.OFFVIS ---
Intake Vital Signs 07/05/23 08:32 Height 6 ft 2 in Weight 228 lb 2 oz BMI 29.3 BP 134/78 Blood Pressure Location Lt brachial Position Sitting Respiration 18 Pulse 87 Pulse Source Pulse Oximeter Pulse Oximetry (%) 98 Oxygen Delivery Method Room Air Intake Visit Reasons: PILL COUNT / UDS per Malou Allergies fentanyl Allergy (Intermediate, Verified 07/05/23 08:32) itching morphine [Amber] Allergy (Intermediate, Verified 07/05/23 08:32) itch Iodinated Contrast Media [IV Dye, Iodine Containing] Allergy (Mild, Verified 07/05/23 08:32) DIFFICULTY BREATHING,VOMITING amoxicillin [From Augmentin] Adverse Reaction (Intermediate, Verified 07/05/23 08:32) Diarrhea clavulanic acid [From Augmentin] Adverse Reaction (Intermediate, Verified 07/05/23 08:32) Diarrhea metformin Adverse Reaction (Intermediate, Verified 07/05/23 08:32) stomach pain HPI HPI Comments History of Present Illness Details Sridhar is a very pleasant 62-year-old male who presents to the office for follow up chronic pain and chronic opioid therapy management. Patient is prescribed methadone 10 mg p.o. b.i.d. Patient arrived today with the expectation of having 58 pills, she presented 59 pills which were counted in the presence of two staff members and returned to the patient in the original prescription bottle. This demonstrates responsible attitude toward patient's opioid medications. Pain is reported today as 9/10 and last dose of pain medication was taken at 8:00 this morning. He reports pain is worse today due to the cold, damp weather Patient denies side effects including somnolence, constipation, urinary retention, itching, dyspnea, rash, dizziness or weakness. [facility] he reports visit is scheduled for later this month. Previous visit with Mary Alice Salgado NP: Patient presents today for a methadone pill count. He is supposed to have #0 pills in their possession and has #21 pills. This demonstrates a responsible attitude in regards to the opioid regimen. Patient reports adequate analgesia with current dose with no noted side effects. Patient reports worsening spinal-stenosis related and left leg radicular pain. He has pending Neurosurgical evaluation with Dr. Spain which he reports is being rescheduled. Denies any fever, sore throat, shortness of breaths, abdominal pain, constipation, sedation, nausea, dizziness, urinary retention, bladder or bowel dysfunction or saddle anesthesia. [facility] Medical History Pre-op examination Colon cancer screening Left otitis media Weight loss, abnormal Nausea Irritable bowel syndrome with diarrhea Normal routine history and physical examination Low back pain Laboratory tests ordered as part of a complete physical exam (CPE) BPH (benign prostatic hyperplasia) Poison derek dermatitis Hx of iron deficiency anemia Screening PSA (prostate specific antigen) Lumbar spondylosis Iron deficiency anemia Normal physical exam Anemia Sepsis Acute respiratory failure with hypoxia Pneumonia History of COVID-19 History of 2019 novel coronavirus disease (COVID-19) High cholesterol Arthritis Diabetes Contact dermatitis Narcotic drug use DMII (diabetes mellitus, type 2) Elevated liver transaminase level Lumbar radiculopathy, chronic Lumbar spinal stenosis Cervical radiculopathy Lumbar post-laminectomy syndrome Surgical History History of esophagogastroduodenoscopy (EGD) H/O colonoscopy History of elbow surgery History of lumbar fusion History of cholecystectomy Family History Father Liver problem Alcoholism Substance use disorder Mother No problems noted. Brother CAD (coronary artery disease) Social History Household Members: Family Housing: House Do you presently have visiting nurse or other home services: No Alcohol intake: never Patient Tobacco Use Status: Former Tobacco user Cigarette Packs Per Day: 0.5 Cigarettes Per Day: 10 Years Smoked: 10 e-Cigarette/Vaping Use: Never Used Second Hand Smoke Exposure: No service: No Current occupational status: disabled Current occupational exposures/hazards: No Cognitive needs: No (cane) Hearing needs: No Vision needs: Yes (reading glasses) Review of Systems Const All systems reviewed & are unremarkable except as noted in HPI and below Physical Exam Vital Signs: Last Vital Signs Pulse 87 07/05/23 08:32 Resp 18 07/05/23 08:32 BP 134/78 07/05/23 08:32 Pulse Ox 98 07/05/23 08:32 Oxygen Delivery Method Room Air 07/05/23 08:32 BMI result Body Mass Index 29.3 General: awake, alert, oriented. Answers questions appropriately. Fully engaged in examination. Skin: warm, dry, intact HEENT: Normocephalic. Hearing intact. Cardiac: External chest normal in appearance. Respiratory: No cough, audible wheezing or stridor. Abdomen: without gross distension. MS: No obvious swelling or deformities. Able to transition from sit to stand unassisted. Ambulates with bilaterally normal heel strike and toe off Neurological: Oriented to person, place, time and situation. Thought process intact. Psychiatric: Appropriate mood and affect. Good judgment and insight. Results Reviewed Results Reviewed: MR LUMBAR SPINE WITHOUT CONTRAST 01/30/23 CLINICAL INFORMATION: Low back pain. Bilateral leg pain, worse on the left side. Prior surgery. COMPARISON: MRI dated 12/08/2019. TECHNIQUE: Multiplanar, multisequence imaging was obtained. FINDINGS: VERTEBRAL BODIES AND PARASPINAL STRUCTURES: An interbody prosthesis is again visible at the L5-S1 level with a solid arthrodesis. Chronic fatty marrow degenerative endplate changes again visible at this level as well. The paraspinal soft tissues appear normal. There are [id number] degenerative changes of the sacroiliac joints. There is edema in the pedicles and posterior elements at the L4-L5 level which was not present on prior imaging and may be stress-related in etiology or reactive to severity of facet arthrosis. No compression fractures are seen. A mild anterolisthesis is again evident at the L4-L5 level as well. CONUS MEDULLARIS AND CAUDA EQUINE: The distal cord, conus tip, and cauda equina nerve roots appear normal. SPINAL LEVELS: L1-L2: No central canal stenosis or foraminal narrowing. No significant disc pathology. L2-L3: Well-hydrated normal appearance of the disc without central canal stenosis or foraminal narrowing. L3-L4: Slight posterior subluxation and broad-based disc bulge with a shallow central disc protrusion and hypertrophic facet arthropathy. Disc protrusion is slightly decreased in size compared to prior imaging with diminished mass effect upon the thecal sac. Mild central canal stenosis and mild bilateral foraminal narrowing. L4-L5: Mild anterolisthesis and broad-based disc bulge noted. Previous central disc protrusion has resorbed. Infolding and thickening of the ligamentum flavum with progressed advanced facet arthropathy contributes to moderate central canal stenosis with mild foraminal narrowing. Marrow edema in the pedicles and posterior elements. L5-S1: Post interbody fusion changes with a left-sided laminectomy defect. No central canal stenosis. Mild left foraminal narrowing is stable IMPRESSION: 1. Previous central disc protrusion at the L4-L5 level has resorbed. Stable mild anterolisthesis and slightly worsened advanced facet arthropathy with moderate central canal stenosis and mild foraminal narrowing. New edema in the pedicles and posterior elements at this level, presumably reactive/stress-related in etiology. 2. Status post interbody fusion with a solid arthrodesis at the L5-S1 level, as on prior imaging. 3. Shallow central disc protrusion at the L3-L4 level is slightly decreased in size with decreased mass effect upon the thecal sac. Mild central canal stenosis and foraminal narrowing. 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 No obvious signs of diversion, abuse or misuse of the opioid medications. Will send in prescription for methadone 10 mg b.i.d. dispense #60 no refills with an advanced date of 08/03/23 Follow-up with Dr. Spain as planned. Patient to follow-up in the office in 1 month, sooner if needed. All questions and concerns have been answered and patient agrees with the plan. Medications: Refilled methadone Partial Fill upon patient request. 10 mg PO BID 60 tabs 0RF pain 30 days M47.816 - Spondylosis without myelopathy or radiculopathy, lumbar region, M48.061 - Spinal stenosis, lumbar region without neurogenic claudication, M54.16 - Radiculopathy, lumbar region, M96.1 - Postlaminectomy syndrome, not elsewhere classified Coding Level of Care Code Est Pt Level 4 (26199) Diagnoses Lumbar spondylosis M47.816 Lumbar spinal stenosis M48.061 Lumbar radiculopathy, chronic M54.16 Lumbar post-laminectomy syndrome M96.1 Opioid contract exists Z79.891 Chronic pain syndrome G89.4
== END 2023-07-05 08:46 | disposition home or self-care (01) ==
PROVIDERS: PCP Nurse Practitioner Family; Visit Provider Registered Nurse Emergency
DX: G89.4 Chronic pain syndrome (principal); M47.816 Spondylosis without myelopathy or radiculopathy, lumbar region; M48.061 Spinal stenosis, lumbar region without neurogenic claudication; Z79.891 Long term (current) use of opiate analgesic; M54.16 Radiculopathy, lumbar region; M96.1 Postlaminectomy syndrome, not elsewhere classified
CPT/HCPCS: 99214

== ENCOUNTER → 2023-07-05 07:54 | Outpatient (BNVA) | payer OTHER, SELFPAY | PROVIDERS: PCP Nurse Practitioner Family; Visit Provider Registered Nurse Emergency | DX: G89.4 Chronic pain syndrome (principal); M47.26 Other spondylosis with radiculopathy, lumbar region; M48.061 Spinal stenosis, lumbar region without neurogenic claudication; M96.1 Postlaminectomy syndrome, not elsewhere classified; Z79.891 Long term (current) use of opiate analgesic | CPT/HCPCS: 99212 ==

== ENCOUNTER 2023-08-02 08:01 | Outpatient (AMB) | payer OTHER, SELFPAY ==
--- NOTE | 2023-08-02 08:30 | MHC.OFFVIS ---
Vital Signs 08/02/23 08:40 Height 6 ft 2 in Weight 227 lb 6 oz BMI 29.2 BP 125/73 Blood Pressure Location Rt brachial Position Sitting Pulse 82 Pulse Source Pulse Oximeter Pulse Oximetry (%) 97 Oxygen Delivery Method Room Air Intake Visit Reasons: Pill Count Intake Note: Sridhar comes in today for a pill count to methadone, patient should have 2 tablets and presents with 9 tablets which he last took today 08/02/23 at 7:35am. 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 Accompanied by: Self / Same As Patient Allergies fentanyl Allergy (Intermediate, Verified 08/02/23 08:42) itching morphine [Amber] Allergy (Intermediate, Verified 08/02/23 08:42) itch Iodinated Contrast Media [IV Dye, Iodine Containing] Allergy (Mild, Verified 08/02/23 08:42) DIFFICULTY BREATHING,VOMITING amoxicillin [From Augmentin] Adverse Reaction (Intermediate, Verified 08/02/23 08:42) Diarrhea clavulanic acid [From Augmentin] Adverse Reaction (Intermediate, Verified 08/02/23 08:42) Diarrhea metformin Adverse Reaction (Intermediate, Verified 08/02/23 08:42) stomach pain HPI Comments Details: Patient presents today for a methadone pill count. He is supposed to have #2 pills in their possession and has #9 pills. This demonstrates a responsible attitude in regards to the opioid regimen. Patient reports mild to moderate analgesia with current dose with no noted side effects. Patient continues to endorse low back pain with left leg radicular pain due to spinal stenosis. He has pending Neurosurgical evaluation with Dr. Spain which he reports is being rescheduled. Denies any fever, sore throat, shortness of breaths, abdominal pain, constipation, sedation, nausea, dizziness, urinary retention, bladder or bowel dysfunction or saddle anesthesia. Patient is also planning to travel to [place] in August on vacation for 2 weeks and will notify our office for any needed changes in his next pill count date. [facility] Medical History Pre-op examination Colon cancer screening Left otitis media Weight loss, abnormal Nausea Irritable bowel syndrome with diarrhea Normal routine history and physical examination Low back pain Laboratory tests ordered as part of a complete physical exam (CPE) BPH (benign prostatic hyperplasia) Poison derek dermatitis Hx of iron deficiency anemia Screening PSA (prostate specific antigen) Lumbar spondylosis Iron deficiency anemia Normal physical exam Anemia Sepsis Acute respiratory failure with hypoxia Pneumonia History of COVID-19 History of 2019 novel coronavirus disease (COVID-19) High cholesterol Arthritis Diabetes Contact dermatitis Narcotic drug use DMII (diabetes mellitus, type 2) Elevated liver transaminase level Lumbar radiculopathy, chronic Lumbar spinal stenosis Cervical radiculopathy Lumbar post-laminectomy syndrome Surgical History History of esophagogastroduodenoscopy (EGD) H/O colonoscopy History of elbow surgery History of lumbar fusion History of cholecystectomy Family History Father Liver problem Alcoholism Substance use disorder Mother No problems noted. Brother CAD (coronary artery disease) Social History Household Members: Family Housing: House Do you presently have visiting nurse or other home services: No Alcohol intake: never Patient Tobacco Use Status: Former Tobacco user Cigarette Packs Per Day: 0.5 Cigarettes Per Day: 10 Years Smoked: 10 e-Cigarette/Vaping Use: Never Used Second Hand Smoke Exposure: No service: No Current occupational status: disabled Current occupational exposures/hazards: No Cognitive needs: No (cane) Hearing needs: No Vision needs: Yes (reading glasses) Review of Systems Const All systems reviewed & are unremarkable except as noted in HPI and below Physical Exam Vital Signs: Last Vital Signs Pulse 82 08/02/23 08:40 BP 125/73 08/02/23 08:40 Pulse Ox 97 08/02/23 08:40 Oxygen Delivery Method Room Air 08/02/23 08:40 BMI result Body Mass Index 29.2 On exam today: Alert and oriented. No acute distress. Mood and affect appropriate. Follows and participates in conversation appropriately. Respiratory effort is unlabored. No cough. Able to transition from sit to stand unassisted. Able to stand and walk on toes and heels but reports occasional unsteadiness due to pain on the left. Limited lumbar ROM due to pain. Lumbar extension and flexion increases his pain. Positive SLR with dorsiflexion on the left, equivocal on the right. +Facet loading bilaterally, worse on the left. Apolinar's test positive bilaterally, left>right. Psych Appearance: grossly normal and well kempt Mental Status: mental status grossly normal Speech and movement: Normal speech and movement present and Clear speech present Affect: normal affect Attitude: cooperative Thought process: Normal thought process present Thought content: Normal thought content present, suicidality (none), no hallucinations and No Depressive thoughts present Insight: Good insight present (Psych) Judgement: Good judgement present (Psych) Results Reviewed Results Reviewed: MR LUMBAR SPINE WITHOUT CONTRAST 01/30/23 CLINICAL INFORMATION: Low back pain. Bilateral leg pain, worse on the left side. Prior surgery. COMPARISON: MRI dated 12/08/2019. TECHNIQUE: Multiplanar, multisequence imaging was obtained. FINDINGS: VERTEBRAL BODIES AND PARASPINAL STRUCTURES: An interbody prosthesis is again visible at the L5-S1 level with a solid arthrodesis. Chronic fatty marrow degenerative endplate changes again visible at this level as well. The paraspinal soft tissues appear normal. There are [id number] degenerative changes of the sacroiliac joints. There is edema in the pedicles and posterior elements at the L4-L5 level which was not present on prior imaging and may be stress-related in etiology or reactive to severity of facet arthrosis. No compression fractures are seen. A mild anterolisthesis is again evident at the L4-L5 level as well. CONUS MEDULLARIS AND CAUDA EQUINE: The distal cord, conus tip, and cauda equina nerve roots appear normal. SPINAL LEVELS: L1-L2: No central canal stenosis or foraminal narrowing. No significant disc pathology. L2-L3: Well-hydrated normal appearance of the disc without central canal stenosis or foraminal narrowing. L3-L4: Slight posterior subluxation and broad-based disc bulge with a shallow central disc protrusion and hypertrophic facet arthropathy. Disc protrusion is slightly decreased in size compared to prior imaging with diminished mass effect upon the thecal sac. Mild central canal stenosis and mild bilateral foraminal narrowing. L4-L5: Mild anterolisthesis and broad-based disc bulge noted. Previous central disc protrusion has resorbed. Infolding and thickening of the ligamentum flavum with progressed advanced facet arthropathy contributes to moderate central canal stenosis with mild foraminal narrowing. Marrow edema in the pedicles and posterior elements. L5-S1: Post interbody fusion changes with a left-sided laminectomy defect. No central canal stenosis. Mild left foraminal narrowing is stable IMPRESSION: 1. Previous central disc protrusion at the L4-L5 level has resorbed. Stable mild anterolisthesis and slightly worsened advanced facet arthropathy with moderate central canal stenosis and mild foraminal narrowing. New edema in the pedicles and posterior elements at this level, presumably reactive/stress-related in etiology. 2. Status post interbody fusion with a solid arthrodesis at the L5-S1 level, as on prior imaging. 3. Shallow central disc protrusion at the L3-L4 level is slightly decreased in size with decreased mass effect upon the thecal sac. Mild central canal stenosis and foraminal narrowing. Assessment & Plan Assessment & Plan (1) Lumbar spondylosis: Code(s): M47.816 - Spondylosis without myelopathy or radiculopathy, lumbar region Category: Medical (2) Lumbar spinal stenosis: Code(s): M48.061 - Spinal stenosis, lumbar region without neurogenic claudication Category: Medical (3) Lumbar radiculopathy, chronic: Code(s): M54.16 - Radiculopathy, lumbar region Category: Medical (4) Lumbar post-laminectomy syndrome: Code(s): M96.1 - Postlaminectomy syndrome, not elsewhere classified Category: Medical (5) Opioid contract exists: Code(s): Z79.891 - intermediate accountant (current) use of opiate analgesic Category: Medical (6) Chronic pain syndrome: Code(s): G89.4 - Chronic pain syndrome Category: Medical Plan Patient has shown accountability for his medication regimen and the pill count was accurate. There is no evidence of misuse, abuse or diversion at this time. [employer] reviewed. Script sent for methadone to 10 mg BID for 30 days with advanced date of 08/04/23. Patient is aware of monitoring for side effects. Encouraged adequate hydration and daily fiber intake, and physical activity as tolerated. Patient has upcoming Neurosurgical evaluation with [facility]. Patient is aware to call if pain worsens or if he develops any red flag symptoms to seek emergency care. Patient denies any cauda equina syndrome symptoms at this time. All questions were answered and the patient is in agreement with the plan. Follow up in 4-5 weeks for a pill count and sooner if needed. Patient will notify our office with any changes in next pill count visit as he plans to visit [place] next month. Medications: Refilled methadone Partial Fill upon patient request. 10 mg PO BID 30 days 60 tabs 0RF pain M47.816 - Spondylosis without myelopathy or radiculopathy, lumbar region, M48.061 - Spinal stenosis, lumbar region without neurogenic claudication, M54.16 - Radiculopathy, lumbar region, M96.1 - Postlaminectomy syndrome, not elsewhere classified Coding Level of Care Code Est Pt Level 4 (77034) Diagnoses Lumbar spondylosis M47.816 Lumbar spinal stenosis M48.061 Lumbar radiculopathy, chronic M54.16 Lumbar post-laminectomy syndrome M96.1 Opioid contract exists Z79.891 Chronic pain syndrome G89.4
[2023-08-02 08:40] VITALS: BP 125/73; PULSE 82; O2SAT 97; BMI 29.2
== END 2023-08-02 08:50 | disposition home or self-care (01) ==
PROVIDERS: PCP Nurse Practitioner Family; Visit Provider Nurse Practitioner Family
DX: G89.4 Chronic pain syndrome (principal); M47.816 Spondylosis without myelopathy or radiculopathy, lumbar region; M48.061 Spinal stenosis, lumbar region without neurogenic claudication; Z79.891 Long term (current) use of opiate analgesic; M54.16 Radiculopathy, lumbar region; M96.1 Postlaminectomy syndrome, not elsewhere classified
CPT/HCPCS: 99214

== ENCOUNTER → 2023-08-02 08:01 | Outpatient (BNVA) | payer OTHER, SELFPAY | PROVIDERS: PCP Nurse Practitioner Family; Visit Provider Registered Nurse Emergency | DX: Z51.81 Encounter for therapeutic drug level monitoring (principal); M47.816 Spondylosis without myelopathy or radiculopathy, lumbar region; M48.061 Spinal stenosis, lumbar region without neurogenic claudication; M54.16 Radiculopathy, lumbar region; M96.1 Postlaminectomy syndrome, not elsewhere classified; G89.4 Chronic pain syndrome; Z79.891 Long term (current) use of opiate analgesic | CPT/HCPCS: 99212 ==

== ENCOUNTER 2023-08-17 08:42 | Outpatient (REF) | payer OTHER, SELFPAY ==
--- NOTE | ~2023-08-17 | US_ITS ---
EXAMINATION: US RETROPERITONEAL LIMITED (RENAL ONLY) CLINICAL INFORMATION: Calculus of kidney. COMPARISON: Renal ultrasound 10/19/2022 and 06/09/2022. CT abdomen and pelvis 11/26/2020. X-ray KUB 09/20/2018 and 06/20/2014. TECHNIQUE: Real-time imaging of the kidneys. Limited visualization due to bowel gas. FINDINGS: RIGHT KIDNEY: 12.0 x 5.4 x 7.0 cm (SAG x AP x TRV). No hydronephrosis. No renal calculi. Renal cortical thickness is normal. Limited visualization. LEFT KIDNEY: 11.5 x 6.6 x 5.6 cm (SAG x AP x TRV). No hydronephrosis. No renal calculi. Renal cortical thickness is normal. Limited visualization. US/US renal BI IMPRESSION: No hydronephrosis. No renal calculi.
== END 2023-08-17 08:43 | disposition home or self-care (01) ==
LOC: HO.US 08:42
PROVIDERS: PCP Nurse Practitioner Family; Visit Provider Urology
DX: N20.0 Calculus of kidney (principal)
CPT/HCPCS: 76775

== ENCOUNTER 2023-08-20 06:06 | Outpatient (REF) | payer OTHER, SELFPAY ==
[2023-08-20 08:35] LABS: Alanine Aminotransferase 53 U/L (0-40); Albumin Level 4.5 g/dL (3.5-5.0); Alkaline Phosphatase 69 U/L (39-117); Anion Gap 12 (12-20); Aspartate Amino Transferase 30 U/L (5-37); Bilirubin Total 0.6 mg/dL (0.0-1.0); Blood Urea Nitrogen 23 mg/dL (9-16); Calcium 9.7 mg/dL (8.4-10.2); Carbon Dioxide 28 mmol/L (22-29); Chloride 104 mmol/L (96-108); Cholesterol 249 mg/dL (<200); Estimated Glomerular Filt Rate > 60; Gamma Glutamyl Transpeptidase 36 U/L (11-51); Glucose Random 151 mg/dL (60-115); HDL Cholesterol 49 mg/dL (>40); LDL Cholesterol Calculated 169 mg/dL (<100); Potassium 4.3 mmol/L (3.3-5.1); Sodium 140 mmol/L (135-145); Total Protein 7.7 g/dL (6.5-8.0); Triglycerides 156 mg/dL (<150)
[2023-08-27 15:04] LABS: Alpha Fetoprotein 1.3 ng/mL (<6.1)
== END 2023-08-20 06:07 | disposition home or self-care (01) ==
LOC: HO.LAB 06:06
PROVIDERS: Nurse Practitioner; PCP Nurse Practitioner Family; Visit Provider Nurse Practitioner Family
DX: Z01.818 Encounter for other preprocedural examination (principal); K75.81 Nonalcoholic steatohepatitis (NASH); E78.5 Hyperlipidemia, unspecified
CPT/HCPCS: 36415; 80053; 80061; 82105; 82977

== ENCOUNTER 2023-08-27 08:06 | Outpatient (AMB) | payer OTHER, SELFPAY ==
--- NOTE | 2023-08-27 08:39 | A.OFFVIS_ITS ---
Intake Visit Reasons: 2m/US/labs Intake Note: Patient presents today for a follow-up Labs Results: Meds- Sildenafil & Testosterone Depo Allergies to Antibiotic- Amoxicillin Blood Thinner- None Internal Sales Required: No Accompanied by: Self / Same As Patient Allergies fentanyl Allergy (Intermediate, Verified 08/27/23 09:59) itching morphine [Amber] Allergy (Intermediate, Verified 08/27/23 09:59) itch Iodinated Contrast Media [IV Dye, Iodine Containing] Allergy (Mild, Verified 08/27/23 09:59) DIFFICULTY BREATHING,VOMITING amoxicillin [From Augmentin] Adverse Reaction (Intermediate, Verified 08/27/23 09:59) Diarrhea clavulanic acid [From Augmentin] Adverse Reaction (Intermediate, Verified 08/27/23 09:59) Diarrhea metformin Adverse Reaction (Intermediate, Verified 08/27/23 09:59) stomach pain Medication List - Last Reconciled 08/28/23 by Arya Lopez MD acetaminophen ER (Tylenol Arthritis Pain) 650 mg PO Q8H PRN 30 days atorvastatin 40 mg PO BEDTIME 90 days blood sugar diagnostic (FreeStyle Lite Strips) POC 4 times daily blood-glucose meter (FreeStyle Lite Meter kit) check blood sugars daily and pern fenofibrate 120 mg PO DAILY 90 days fluticasone propionate 50 mcg/actuation (Flonase Allergy Relief) 1 spray intranasal Q12H gabapentin 300 mg PO BID 90 days insulin syringe-needle U-100 (Advocate Syringes) As directed lancets (FreeStyle Lancets) POC testing 4 times daily linagliptin (Tradjenta) 5 mg PO DAILY meloxicam 15 mg PO DAILY PRN 30 days methadone 10 mg PO BID 30 days MDD 2 naloxone 4 mg/actuation (Narcan) 4 mg intranasal Q2M PRN omeprazole 40 mg PO DAILY safety needles (BD Eclipse Luer-Pilo) As directed for biweekly injection (injecting needle)- 2 per month sertraline 25 mg PO DAILY sildenafil 100 mg PO ONCE PRN 30 days syringe with cannula,disposabl As directed for biweekly Testosterone injection- 2 per month syringe with needle (BD Luer-Pilo Syringe) As directed testosterone cypionate (Depo-Testosterone) 200 mg IM Q2W 4 weeks HPI Comments Details: 08/27/23---Sridhar is here for follow-up. He has been evaluated due to low testosterone, Comorbidity methadone use. c/o's of ED. CoMorbidity Diabetes. He had a renal ultrasound a year ago noting is low. Left kidney stone. He is here to review recent ultrasound results discussed renal ultrasound 08/17/2023 - No kidney stones noted. PSA 06/26/2023--PSA 0.66. The patient did not have the testosterone refilled. Will refill testosterone replacement medication he is instructed to have labs done in 2 months for free and total testosterone and hematocrit. Review of chart: 06/28/2023-- Sridhar is a 62-year-old male who presents today to the office for follow up to review lab results, I have reviewed PSA 06/26/2023--0.66 ng/mL. CBC is within normal limits. Testosterone levels are pending. The patient did not have the renal ultrasound done to follow-up on management for kidney stones. Sridhar states that when he uses the Viagra 50 mg he does not get adequate effect. He states that he ordered a medication online that seems to work better. I asked him what was the medication he stated that he did not know. I have advised him to avoid using medications ordered online. I have discussed increasing the Viagra to 100 mg. Plan-testosterone levels are pending I will wait for these results before refilling testosterone replacement therapy. Renal ultrasound ordered. Follow- up in 3 months to recheck lab work and follow-up on ultrasound. Viagra 100 mg p.r.n. prior to sexual activity. Side effects discussed including erection longer than 4 hours to seek immediate emergency room attention. 02/26/2023--Sridhar is a 62 year old male with complaint of difficulty maintaining and erection.? IIEF - 5 score 8. in a monagamous relationship, able to achieve an erect ion for penetration, --complains of early ejaculation then sometimes able to get an erection sometimes not successful --states is causing him to be anxious about the situation, states order some meds online --(testosterone boosters and another med to help erections which seemed to help) He denies Urgency or obstructive voiding symptoms, denies dysuria CoMorbidities- Diabetes, h/o narcotic use on methadone I reviewed Repeat Testosterone levels: 01/19/23-- TT- 158, FT- 25 He was initially evaluated on 05/01/2022 as a new patient for erectile dysfunction and complaints of premature ejaculation. He was prescribed Paxil 20 mg and Viagra 50 mg to use prior to intercourse prn. He developed nausea secondary to taking Paxil 20 mg so is not taking this med. he is on methadone.?- trial of paxil 20 mg daily-pt stopped. Viagra 50 (1/2-1 tab prn 30 minutes prior to intercourse) Plan--Failed Testosterone 20.25 mg per 1.25 gram pump, Depo Testosterone ordered. Viagra prn. Follow up in 4 months to recheck testosterone level. left kidney stone, FU renal US Imagin11/26/20-CTKUB --left kidney stone 5 mm?? renal US results from 10/19/22 which revealed 6 mm non obstructive left lower pole kidney stone. Review of labs: 10/19/2022 revealed PSA?0.61, total testosterone 215 which is low, and free testosterone 40.99 which is low normal. [facility] Medical History Pre-op examination Colon cancer screening Left otitis media Weight loss, abnormal Nausea Irritable bowel syndrome with diarrhea Normal routine history and physical examination Low back pain Laboratory tests ordered as part of a complete physical exam (CPE) BPH (benign prostatic hyperplasia) Poison derek dermatitis Hx of iron deficiency anemia Screening PSA (prostate specific antigen) Lumbar spondylosis Iron deficiency anemia Normal physical exam Anemia Sepsis Acute respiratory failure with hypoxia Pneumonia History of COVID-19 History of 2019 novel coronavirus disease (COVID-19) High cholesterol Arthritis Diabetes Contact dermatitis Narcotic drug use DMII (diabetes mellitus, type 2) Elevated liver transaminase level Lumbar radiculopathy, chronic Lumbar spinal stenosis Cervical radiculopathy Lumbar post-laminectomy syndrome Surgical History History of esophagogastroduodenoscopy (EGD) H/O colonoscopy History of elbow surgery History of lumbar fusion History of cholecystectomy Family History Father Liver problem Alcoholism Substance use disorder Mother No problems noted. Brother CAD (coronary artery disease) Social History Household Members: Family Housing: House Do you presently have visiting nurse or other home services: No Alcohol intake: never Patient Tobacco Use Status: Former Tobacco user Cigarette Packs Per Day: 0.5 Cigarettes Per Day: 10 Years Smoked: 10 e-Cigarette/Vaping Use: Never Used Second Hand Smoke Exposure: No service: No Current occupational status: disabled Current occupational exposures/hazards: No Cognitive needs: No (cane) Hearing needs: No Vision needs: Yes (reading glasses) Review of Systems Const All systems reviewed & are unremarkable except as noted in HPI and below Reports no additional complaints Eyes Reports no additional complaints ENT Reports no additional complaints Card Reports no additional complaints Resp Reports no additional complaints GI Reports no additional complaints Reports as per HPI Musc Reports no additional complaints Skin/Breast Reports system reviewed and no additional complaints, except as documented Neuro Reports no additional complaints Psych Reports no additional complaints Endo Reports no additional complaints Barrie/Lymph Reports no additional complaints Aller/Immun Reports no additional complaints Results AMB Urinalysis, Automated UA Leukoctes 0 Rashard/uL Last Edit by EDWARD Quintanilla on 08/27/23 09:02 UA Nitrite Negative Last Edit by EDWARD Quintanilla on 08/27/23 09:02 UA Urobilinogen 0.2 mg/dL Last Edit by EDWARD Quintanilla on 08/27/23 09:0 2 UA Protein 15 mg/dL Last Edit by EDWARD Quintanilla on 08/27/23 09:02 UA pH 6.0 Last Edit by EDWARD Quintanilla on 08/27/23 09:02 UA Blood 0 Maverick/uL Last Edit by EDWARD Quintanilla on 08/27/23 09:02 UA Specific [place] 1.015 Last Edit by EDWARD Quintanilla on 08/27/23 09: 02 UA Ketone Negative Last Edit by EDWARD Quintanilla on 08/27/23 09:02 UA Bilirubin 0 mg/dL Last Edit by EDWARD Quintanilla on 08/27/23 09:02 UA Glucose 0 mg/dL Last Edit by EDWARD Quintanilla on 08/27/23 09:02 Results Reviewed Results Reviewed: Laboratory Last Values Urine pH (Auto) 6.0 08/27/23 09:01 Specific [place] (Auto) 1.015 08/27/23 09:01 Urine Protein (Auto) 15 mg/dL 08/27/23 09:01 Glucose (UA)(Auto) 0 mg/dL 08/27/23 09:01 Urine Ketones (Auto) Negative 08/27/23 09:01 Urine Blood (Auto) 0 Maverick/uL 08/27/23 09:01 Urine Nitrite (Auto) Negative 08/27/23 09:01 Urine Bilirubin (Auto) 0 mg/dL 08/27/23 09:01 Urine Urobilinogen (Auto) 0.2 mg/dL 08/27/23 09:01 Leukocyte Esterase (Auto) 0 Rashard/uL 08/27/23 09:01 Date of Service: 10/19/22 EXAMINATION: US RETROPERITONEAL LIMITED (RENAL ONLY) CLINICAL INFORMATION: Calculus of kidney. COMPARISON: Renal ultrasound 06/09/2022. Ultrasound abdomen limited 02/24/2022. CT abdomen and pelvis 11/26/2020. X-ray KUB 09/20/2018 and 06/20/2014. FINDINGS: RIGHT KIDNEY: 11.7 x 5.8 x 6.3 cm (SAG x AP x TRV). The kidney is normal in size, contour, and echogenicity. Renal cortical thickness is normal. No calculi or focal parenchymal lesions. No hydronephrosis. LEFT KIDNEY: 11.8 x 6.8 x 5.4 cm (SAG x AP x TRV). The kidney is normal in size, contour, and echogenicity. Renal cortical thickness is normal. No focal parenchymal lesions or hydronephrosis. 6 x 3 x 6 mm lower pole not shadowing echogenicity is identified. IMPRESSION: Question 6 mm nonobstructing left lower pole renal calculus. Assessment & Plan Assessment & Plan (1) Kidney stone: Code(s): N20.0 - Calculus of kidney Category: Medical (2) Kidney stone on left side: Code(s): N20.0 - Calculus of kidney Category: Medical (3) Hypogonadism in male: Code(s): E29.1 - Testicular hypofunction Category: Medical (4) Erectile dysfunction: Code(s): N52.9 - Male erectile dysfunction, unspecified Category: Medical (5) Low testosterone: Code(s): R79.89 - Other specified abnormal findings of blood chemistry Category: Medical (6) Long-term current use of testosterone replacement therapy: Code(s): Z79.890 - Hormone replacement therapy Category: Medical Plan longterm testosterone replacement. Repeat labs. see below Orders: Orders AMB Urinalysis Automated 08/27/23 Z13.9 - Encounter for screening, unspecified Testosterone, Free/Total 2 Months R7.89 - Other specified abnormal findings of blood chemistry Complete Blood Count no Diff 2 Months R7.89 - Other specified abnormal findings of blood chemistry, Z79.890 - Hormone replacement therapy Medications: Refilled testosterone cypionate (Depo-Testosterone) 200 mg IM Q2W 4 weeks 2 mL 2RF Coding Level of Care Code Est Pt Level 4 (09840) Diagnoses Kidney stone N20.0 Kidney stone on left side N20.0 Hypogonadism in male E29.1 Erectile dysfunction N52.9 Low testosterone R79.89 Long-term current use of testosterone replacement therapy Z79.890
== END 2023-08-27 09:42 | disposition home or self-care (01) ==
PROVIDERS: PCP Hospitalist; Visit Provider Urology
DX: N20.0 Calculus of kidney (principal); E29.1 Testicular hypofunction; N52.9 Male erectile dysfunction, unspecified; R79.89 Other specified abnormal findings of blood chemistry; Z79.890 Hormone replacement therapy
CPT/HCPCS: 99214

== ENCOUNTER → 2023-08-27 08:06 | Outpatient (BNVA) | payer OTHER, SELFPAY | PROVIDERS: PCP Hospitalist; Visit Provider Urology | DX: Z51.81 Encounter for therapeutic drug level monitoring (principal); M47.816 Spondylosis without myelopathy or radiculopathy, lumbar region; M48.061 Spinal stenosis, lumbar region without neurogenic claudication; M54.16 Radiculopathy, lumbar region; M96.1 Postlaminectomy syndrome, not elsewhere classified; G89.4 Chronic pain syndrome; N20.0 Calculus of kidney; N52.9 Male erectile dysfunction, unspecified; E29.1 Testicular hypofunction; R79.89 Other specified abnormal findings of blood chemistry; Z79.890 Hormone replacement therapy; Z79.891 Long term (current) use of opiate analgesic | CPT/HCPCS: 81003; 99212 ==

== ENCOUNTER 2023-08-27 09:37 | Outpatient (AMB) | payer OTHER, SELFPAY ==
--- NOTE | 2023-08-27 09:56 | A.OFFVIS_ITS ---
Vital Signs 08/27/23 09:59 Height 6 ft 2 in Weight 228 lb BMI 29.3 BP 146/90 H Blood Pressure Location Rt brachial Position Sitting Pulse 67 Pulse Source Pulse Oximeter Pulse Oximetry (%) 98 Oxygen Delivery Method Room Air Intake Visit Reasons: pill count- per jerry Intake Note: Sridhar comes in today for a pill count to methadone, patient should have 16 tablets and presents with 13 tablets which he last took 08/26/23 at 10pm. Unfortunately patient is 3 tablets short, when asked if he took any extra tablets he stated sometimes I take 3 tablets, she knows, I'm not gonna lie . Per pharmacy and [facility] patient picked up medication on 08/05/23. Bottle states that it was filled on 08/02/23. 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 Accompanied by: Self / Same As Patient Allergies fentanyl Allergy (Intermediate, Verified 08/27/23 09:59) itching morphine [Amber] Allergy (Intermediate, Verified 08/27/23 09:59) itch Iodinated Contrast Media [IV Dye, Iodine Containing] Allergy (Mild, Verified 08/27/23 09:59) DIFFICULTY BREATHING,VOMITING amoxicillin [From Augmentin] Adverse Reaction (Intermediate, Verified 08/27/23 09:59) Diarrhea clavulanic acid [From Augmentin] Adverse Reaction (Intermediate, Verified 08/27/23 09:59) Diarrhea metformin Adverse Reaction (Intermediate, Verified 08/27/23 09:59) stomach pain HPI Comments Details: Patient presents today for a methadone pill count. He is supposed to have #16 p ills in their possession and has #13 pills. Patient reports some of the days he experience moderate-severe low back pain with left sided radiculopathy and took 3 tabs as some other days he only requires one tab per day. Discussed with patient that his daily prescribed dose is twice per day and he should take twice per day prn only due to long elimination half-life which can result in risk of drug accumulation and adverse effects. Patient reports mild to moderate analgesia with current dose with no noted side effects. Denies any fever, sore throat, shortness of breaths, abdominal pain, constipation, sedation, nausea, dizziness, urinary retention, bladder or bowel dysfunction or saddle anesthesia. [facility] Medical History Pre-op examination Colon cancer screening Left otitis media Weight loss, abnormal Nausea Irritable bowel syndrome with diarrhea Normal routine history and physical examination Low back pain Laboratory tests ordered as part of a complete physical exam (CPE) BPH (benign prostatic hyperplasia) Poison derek dermatitis Hx of iron deficiency anemia Screening PSA (prostate specific antigen) Lumbar spondylosis Iron deficiency anemia Normal physical exam Anemia Sepsis Acute respiratory failure with hypoxia Pneumonia History of COVID-19 History of 2019 novel coronavirus disease (COVID-19) High cholesterol Arthritis Diabetes Contact dermatitis Narcotic drug use DMII (diabetes mellitus, type 2) Elevated liver transaminase level Lumbar radiculopathy, chronic Lumbar spinal stenosis Cervical radiculopathy Lumbar post-laminectomy syndrome Surgical History History of esophagogastroduodenoscopy (EGD) H/O colonoscopy History of elbow surgery History of lumbar fusion History of cholecystectomy Family History Father Liver problem Alcoholism Substance use disorder Mother No problems noted. Brother CAD (coronary artery disease) Social History Household Members: Family Housing: House Do you presently have visiting nurse or other home services: No Alcohol intake: never Patient Tobacco Use Status: Former Tobacco user Cigarette Packs Per Day: 0.5 Cigarettes Per Day: 10 Years Smoked: 10 e-Cigarette/Vaping Use: Never Used Second Hand Smoke Exposure: No service: No Current occupational status: disabled Current occupational exposures/hazards: No Cognitive needs: No (cane) Hearing needs: No Vision needs: Yes (reading glasses) Review of Systems Const All systems reviewed & are unremarkable except as noted in HPI and below Physical Exam Vital Signs: Last Vital Signs Pulse 67 08/27/23 09:59 BP 146/90 H 08/27/23 09:59 Pulse Ox 98 08/27/23 09:59 Oxygen Delivery Method Room Air 08/27/23 09:59 BMI result Body Mass Index 29.3 On exam today: Alert and oriented. No acute distress. Mood and affect appropriate. Follows and participates in conversation appropriately. Respiratory effort is unlabored. No cough. Able to transition from sit to stand unassisted. Able to stand and walk on toes and heels but reports occasional unsteadiness due to pain on the left. Limited lumbar ROM due to pain. Lumbar extension and flexion increases his pain. Positive SLR with dorsiflexion on the left, equivocal on the right. +Facet loading bilaterally, worse on the left. Psych Appearance: grossly normal Mental Status: mental status grossly normal Speech and movement: Normal speech and movement present and Clear speech present Affect: normal affect Attitude: cooperative Thought process: Normal thought process present Thought content: Normal thought content present, suicidality (none), no hallucinations and No Depressive thoughts present Insight: Good insight present (Psych) Judgement: Good judgement present (Psych) Results AMB Urinalysis, Automated UA Leukoctes 0 Rashard/uL Last Edit by EDWARD Quintanilla on 08/27/23 09:02 UA Nitrite Negative Last Edit by EDWARD Quintanilla on 08/27/23 09:02 UA Urobilinogen 0.2 mg/dL Last Edit by EDWARD Quintanilla on 08/27/23 09:0 2 UA Protein 15 mg/dL Last Edit by EDWARD Quintanilla on 08/27/23 09:02 UA pH 6.0 Last Edit by EDWARD Quintanilla on 08/27/23 09:02 UA Blood 0 Maverick/uL Last Edit by EDWARD Quintanilla on 08/27/23 09:02 UA Specific [place] 1.015 Last Edit by EDWARD Quintanilla on 08/27/23 09: 02 UA Ketone Negative Last Edit by EDWARD Quintanilla on 08/27/23 09:02 UA Bilirubin 0 mg/dL Last Edit by EDWARD Quintanilla on 08/27/23 09:02 UA Glucose 0 mg/dL Last Edit by EDWARD Quintanilla on 08/27/23 09:02 Results Reviewed Results Reviewed: MR LUMBAR SPINE WITHOUT CONTRAST 01/30/23 CLINICAL INFORMATION: Low back pain. Bilateral leg pain, worse on the left side. Prior surgery. COMPARISON: MRI dated 12/08/2019. TECHNIQUE: Multiplanar, multisequence imaging was obtained. FINDINGS: VERTEBRAL BODIES AND PARASPINAL STRUCTURES: An interbody prosthesis is again visible at the L5-S1 level with a solid arthrodesis. Chronic fatty marrow degenerative endplate changes again visible at this level as well. The paraspinal soft tissues appear normal. There are [id number] degenerative changes of the sacroiliac joints. There is edema in the pedicles and posterior elements at the L4-L5 level which was not present on prior imaging and may be stress-related in etiology or reactive to severity of facet arthrosis. No compression fractures are seen. A mild anterolisthesis is again evident at the L4-L5 level as well. CONUS MEDULLARIS AND CAUDA EQUINE: The distal cord, conus tip, and cauda equina nerve roots appear normal. SPINAL LEVELS: L1-L2: No central canal stenosis or foraminal narrowing. No significant disc pathology. L2-L3: Well-hydrated normal appearance of the disc without central canal stenosis or foraminal narrowing. L3-L4: Slight posterior subluxation and broad-based disc bulge with a shallow central disc protrusion and hypertrophic facet arthropathy. Disc protrusion is slightly decreased in size compared to prior imaging with diminished mass effect upon the thecal sac. Mild central canal stenosis and mild bilateral foraminal narrowing. L4-L5: Mild anterolisthesis and broad-based disc bulge noted. Previous central disc protrusion has resorbed. Infolding and thickening of the ligamentum flavum with progressed advanced facet arthropathy contributes to moderate central canal stenosis with mild foraminal narrowing. Marrow edema in the pedicles and posterior elements. L5-S1: Post interbody fusion changes with a left-sided laminectomy defect. No central canal stenosis. Mild left foraminal narrowing is stable IMPRESSION: 1. Previous central disc protrusion at the L4-L5 level has resorbed. Stable mild anterolisthesis and slightly worsened advanced facet arthropathy with moderate central canal stenosis and mild foraminal narrowing. New edema in the pedicles and posterior elements at this level, presumably reactive/stress-related in etiology. 2. Status post interbody fusion with a solid arthrodesis at the L5-S1 level, as on prior imaging. 3. Shallow central disc protrusion at the L3-L4 level is slightly decreased in size with decreased mass effect upon the thecal sac. Mild central canal stenosis and foraminal narrowing. Assessment & Plan Assessment & Plan (1) Lumbar spondylosis: Code(s): M47.816 - Spondylosis without myelopathy or radiculopathy, lumbar region Category: Medical (2) Lumbar spinal stenosis: Code(s): M48.061 - Spinal stenosis, lumbar region without neurogenic claudication Category: Medical (3) Lumbar radiculopathy, chronic: Code(s): M54.16 - Radiculopathy, lumbar region Category: Medical (4) Lumbar post-laminectomy syndrome: Code(s): M96.1 - Postlaminectomy syndrome, not elsewhere classified Category: Medical (5) Opioid contract exists: Code(s): Z79.891 - long-term (current) use of opiate analgesic Category: Medical (6) Chronic pain syndrome: Code(s): G89.4 - Chronic pain syndrome Category: Medical Plan Patient has shown accountability for his medication regimen and the pill count was 1.5 day short. We had long discussion today and patient was educated no to exceed the prescribed dose of methadone even if some days he only takes one tablet per day due to potential risk of drug accumulation and adverse effects wi th long elimination half life. There is no evidence of misuse, abuse or diversion at this time. [employer] Plan reviewed. Script sent for methadone 10 mg BID for 30 days with advanced date of 09/02/23. Patient is aware of monitoring for side effects. Encouraged adequate hydration and daily fiber intake, and physical activity as tolerated. Patient has pending Neurosurgical evaluation with [facility] to address lumbar spinal stenosis. All questions were answered and the patient is in agreement with the plan. Follow up in one month for a pill count and sooner if needed. Medications: Refilled methadone Partial Fill upon patient request. 10 mg PO BID 60 tabs 0RF pain 30 days MDD 2 M47.816 - Spondylosis without myelopathy or radiculopathy, lumbar region, M48.061 - Spinal stenosis, lumbar region without neurogenic claudication, M54.16 - Radiculopathy, lumbar region, M96.1 - Postlaminectomy syndrome, not elsewhere classified Coding Level of Care Code Est Pt Level 4 (86706) Diagnoses Lumbar spondylosis M47.816 Lumbar spinal stenosis M48.061 Lumbar radiculopathy, chronic M54.16 Lumbar post-laminectomy syndrome M96.1 Opioid contract exists Z79.891 Chronic pain syndrome G89.4
[2023-08-27 09:59] VITALS: BP 146/90; PULSE 67; O2SAT 98; BMI 29.3
== END 2023-08-27 10:03 | disposition home or self-care (01) ==
PROVIDERS: PCP Hospitalist; Visit Provider Nurse Practitioner Family
DX: G89.4 Chronic pain syndrome (principal); M47.816 Spondylosis without myelopathy or radiculopathy, lumbar region; M48.061 Spinal stenosis, lumbar region without neurogenic claudication; Z79.891 Long term (current) use of opiate analgesic; M54.16 Radiculopathy, lumbar region; M96.1 Postlaminectomy syndrome, not elsewhere classified
CPT/HCPCS: 99214

== ENCOUNTER 2023-09-24 08:14 | Outpatient (AMB) | payer OTHER, SELFPAY ==
--- NOTE | 2023-09-24 08:30 | MHC.OFFVIS ---
Vital Signs 09/24/23 08:35 Height 6 ft 2 in Weight 222 lb 4 oz BMI 28.5 BP 147/84 H Blood Pressure Location Rt brachial Position Sitting Pulse 99 Pulse Source Pulse Oximeter Pulse Oximetry (%) 100 Oxygen Delivery Method Room Air Intake Visit Reasons: PILL COUNT Intake Note: Sridhar comes in today for a pill count to methadone, patient should have 16 tablets and presents with 25 tablets which he last took today 09/24/23 at 7:30am. Pain today 10/26. 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 Accompanied by: Self / Same As Patient Allergies fentanyl Allergy (Intermediate, Verified 09/24/23 08:39) itching morphine [Amber] Allergy (Intermediate, Verified 09/24/23 08:39) itch Iodinated Contrast Media [IV Dye, Iodine Containing] Allergy (Mild, Verified 09/24/23 08:39) DIFFICULTY BREATHING,VOMITING amoxicillin [From Augmentin] Adverse Reaction (Intermediate, Verified 09/24/23 08:39) Diarrhea clavulanic acid [From Augmentin] Adverse Reaction (Intermediate, Verified 09/24/23 08:39) Diarrhea metformin Adverse Reaction (Intermediate, Verified 09/24/23 08:39) stomach pain HPI Comments Details: Patient presents today for a methadone pill count. He is supposed to have #16 pills in their possession and has #25 pills. Patient reports adequate analgesia on current opioid regime without any side effects. He continues to experience left sided radiculopathy symptoms but not as often as last month. Patient reports he missed his appointment with [facility] for surgical evaluation. He plans to reschedule when symptoms become severe. Patient denies any bladder or bowel dysfunction or saddle anesthesia at this time. Denies any fever, sore throat, shortness of breaths, abdominal pain, constipation, sedation, nausea, dizziness, urinary retention, any significant changes in his medical history, medications or recent hospitalizations. [facility] Medical History Pre-op examination Colon cancer screening Left otitis media Weight loss, abnormal Nausea Irritable bowel syndrome with diarrhea Normal routine history and physical examination Low back pain Laboratory tests ordered as part of a complete physical exam (CPE) BPH (benign prostatic hyperplasia) Poison derek dermatitis Hx of iron deficiency anemia Screening PSA (prostate specific antigen) Lumbar spondylosis Iron deficiency anemia Normal physical exam Anemia Sepsis Acute respiratory failure with hypoxia Pneumonia History of COVID-19 History of 2019 novel coronavirus disease (COVID-19) High cholesterol Arthritis Diabetes Contact dermatitis Narcotic drug use DMII (diabetes mellitus, type 2) Elevated liver transaminase level Lumbar radiculopathy, chronic Lumbar spinal stenosis Cervical radiculopathy Lumbar post-laminectomy syndrome Surgical History History of esophagogastroduodenoscopy (EGD) H/O colonoscopy History of elbow surgery History of lumbar fusion History of cholecystectomy Family History Father Liver problem Alcoholism Substance use disorder Mother No problems noted. Brother CAD (coronary artery disease) Social History Household Members: Family Housing: House Do you presently have visiting nurse or other home services: No Alcohol intake: never Patient Tobacco Use Status: Former Tobacco user Cigarette Packs Per Day: 0.5 Cigarettes Per Day: 10 Years Smoked: 10 e-Cigarette/Vaping Use: Never Used Second Hand Smoke Exposure: No service: No Current occupational status: disabled Current occupational exposures/hazards: No Cognitive needs: No (cane) Hearing needs: No Vision needs: Yes (reading glasses) Review of Systems Const All systems reviewed & are unremarkable except as noted in HPI and below Physical Exam Vital Signs: Last Vital Signs Pulse 99 09/24/23 08:35 BP 147/84 H 09/24/23 08:35 Pulse Ox 100 09/24/23 08:35 Oxygen Delivery Method Room Air 09/24/23 08:35 BMI result Body Mass Index 28.5 On exam today: Alert and oriented. No acute distress. Mood and affect appropriate. Follows and participates in conversation appropriately. Respiratory effort is unlabored. No cough. Able to transition from sit to stand unassisted. Able to stand and walk on toes and heels but reports occasional unsteadiness due to pain on the left. Limited lumbar ROM due to pain. Lumbar extension and flexion causes moderate pain. Positive SLR with dorsiflexion on the left. Extrem General: Yes capillary refill normal, Yes no clubbing, cyanosis or edema and Yes no calf tenderness Psych Appearance: grossly normal and well kempt Mental Status: mental status grossly normal Speech and movement: Normal speech and movement present and Clear speech present Affect: normal affect Attitude: cooperative Thought process: Normal thought process present Thought content: Normal thought content present, suicidality (none), no hallucinations and No Depressive thoughts present Insight: Good insight present (Psych) Judgement: Good judgement present (Psych) Assessment & Plan Assessment & Plan (1) Lumbar spinal stenosis: Code(s): M48.061 - Spinal stenosis, lumbar region without neurogenic claudication Category: Medical (2) Lumbar radiculopathy, chronic: Code(s): M54.16 - Radiculopathy, lumbar region Category: Medical (3) Lumbar post-laminectomy syndrome: Code(s): M96.1 - Postlaminectomy syndrome, not elsewhere classified Category: Medical (4) Opioid contract exists: Code(s): Z79.891 - residential (current) use of opiate analgesic Category: Medical (5) Chronic pain syndrome: Code(s): G89.4 - Chronic pain syndrome Category: Medical (6) Lumbar spondylosis: Code(s): M47.816 - Spondylosis without myelopathy or radiculopathy, lumbar region Category: Medical Plan Patient has shown accountability for his medication regimen and the pill count was correct. There is no evidence of misuse, abuse or diversion at this time. [facility] Script sent for methadone 10 mg BID for 30 days with advanced date of 10/04/23. Patient is aware of monitoring for side effects. Encouraged adequate hydration and daily fiber intake, and physical activity as tolerated. Patient is planning to reschedule his missed appointment for Neurosurgical evaluation with [facility] to address lumbar spinal stenosis. Patient is aware to call if pain worsens or if he develops any red flag symptoms to seek emergency care. Patient denies any cauda equina syndrome symptoms at this time. All questions were answered and the patient is in agreement with the plan. Follow up in 4-5 weeks for a pill count and sooner if needed. Medications: Refilled methadone Partial Fill upon patient request. 10 mg PO BID 30 days 60 tabs 0RF pain MDD 2 M47.816 - Spondylosis without myelopathy or radiculopathy, lumbar region, M48.061 - Spinal stenosis, lumbar region without neurogenic claudication, M54.16 - Radiculopathy, lumbar region, M96.1 - Postlaminectomy syndrome, not elsewhere classified Coding Level of Care Code Est Pt Level 4 (09891) Diagnoses Lumbar spinal stenosis M48.061 Lumbar radiculopathy, chronic M54.16 Lumbar post-laminectomy syndrome M96.1 Opioid contract exists Z79.891 Chronic pain syndrome G89.4 Lumbar spondylosis M47.816
[2023-09-24 08:35] VITALS: BP 147/84; PULSE 99; O2SAT 100; BMI 28.5
== END 2023-09-24 08:41 | disposition home or self-care (01) ==
PROVIDERS: PCP Hospitalist; Visit Provider Nurse Practitioner Family
DX: G89.4 Chronic pain syndrome (principal); M48.061 Spinal stenosis, lumbar region without neurogenic claudication; M54.16 Radiculopathy, lumbar region; Z79.891 Long term (current) use of opiate analgesic; M96.1 Postlaminectomy syndrome, not elsewhere classified; M47.816 Spondylosis without myelopathy or radiculopathy, lumbar region
CPT/HCPCS: 99214

== ENCOUNTER → 2023-09-24 08:14 | Outpatient (BNVA) | payer OTHER, SELFPAY | PROVIDERS: PCP Hospitalist; Visit Provider Nurse Practitioner Family | DX: G89.4 Chronic pain syndrome (principal); M48.061 Spinal stenosis, lumbar region without neurogenic claudication; M54.16 Radiculopathy, lumbar region; M96.1 Postlaminectomy syndrome, not elsewhere classified; M47.816 Spondylosis without myelopathy or radiculopathy, lumbar region; Z79.891 Long term (current) use of opiate analgesic | CPT/HCPCS: 99212 ==

== ENCOUNTER 2023-10-05 09:14 | Outpatient (AMB) | payer OTHER, SELFPAY ==
--- NOTE | 2023-10-05 09:16 | A.OFFPC_ITS ---
Vital Signs 10/05/23 09:24 Height 6 ft 2 in Weight 223 lb 8 oz BMI 28.7 BP 114/74 Blood Pressure Location Rt brachial Position Sitting Respiration 16 Pulse 83 Pulse Source Pulse Oximeter Temp 97.3 F Temp Source Temporal Artery Scan Pulse Oximetry (%) 98 Oxygen Delivery Method Room Air Intake Visit Reasons: Office visit Intake Note: patient here for routine follow up because he missed his last visit. Park Keeper Required: No Allergies fentanyl Allergy (Intermediate, Verified 10/05/23 09:37) itching morphine [Amber] Allergy (Intermediate, Verified 10/05/23 09:37) itch Iodinated Contrast Media [IV Dye, Iodine Containing] Allergy (Mild, Verified 10/05/23 09:37) DIFFICULTY BREATHING,VOMITING amoxicillin [From Augmentin] Adverse Reaction (Intermediate, Verified 10/05/23 09:37) Diarrhea clavulanic acid [From Augmentin] Adverse Reaction (Intermediate, Verified 10/05/23 09:37) Diarrhea metformin Adverse Reaction (Intermediate, Verified 10/05/23 09:37) stomach pain Medication List - Last Reconciled 10/05/23 by Eldon Caro CNP acetaminophen ER (Tylenol Arthritis Pain) 650 mg PO Q8H PRN 30 days atorvastatin 40 mg PO BEDTIME 90 days blood sugar diagnostic (FreeStyle Lite Strips) POC 4 times daily blood-glucose meter (FreeStyle Lite Meter kit) check blood sugars daily and pern fenofibrate 120 mg PO DAILY 90 days fluticasone propionate 50 mcg/actuation (Flonase Allergy Relief) 1 spray intranasal Q12H gabapentin 300 mg PO BID 90 days insulin syringe-needle U-100 (Advocate Syringes) As directed lancets (FreeStyle Lancets) POC testing 4 times daily linagliptin (Tradjenta) 5 mg PO DAILY meloxicam 15 mg PO DAILY PRN 30 days methadone 10 mg PO BID 30 days MDD 2 naloxone 4 mg/actuation (Narcan) 4 mg intranasal Q2M PRN omeprazole 40 mg PO DAILY safety needles (BD Eclipse Luer-Pilo) As directed for biweekly injection (injecting needle)- 2 per month sertraline 25 mg PO DAILY sildenafil 100 mg PO ONCE PRN 30 days syringe with cannula,disposabl As directed for biweekly Testosterone injection- 2 per month syringe with needle (BD Luer-Pilo Syringe) As directed testosterone cypionate (Depo-Testosterone) 200 mg IM Q2W 4 weeks Tobacco use date assessed: 10/05/23 Dental Screening Dental Screen Date: 10/05/23 Did you have a dental visit in the last 12 months?: Yes Did you have a dental problem in the last 6 months where you did not have access to dental care?: No Was dental information given to patient?: Patient has dentist HPI HPI Comments History of Present Illness Details 63-year-old male presents for anxiety, d epression, and hyperlipidemia follow-up He admits to taking his medications without adverse reactions. He notes that he has not been taking his Atorvastatin as prescribed because i forget a lot to take it He reports controlled anxiety and depressive symptoms. He notes that he started seeing a psychiatrist from [facility] monthly. He was prescribed sertraline 25 mg daily, which he has been taking as prescribed with significant improvement and no adverse reactions. He continues to see his therapist every Sunday He notes that he generally sleeps well. He walks his dog about half a mile everyday He states that he has been consuming significant amount of rice, high sugar foods, and diet soda [facility] Medical History Pre-op examination Colon cancer screening Left otitis media Weight loss, abnormal Nausea Irritable bowel syndrome with diarrhea Normal routine history and physical examination Low back pain Laboratory tests ordered as part of a complete physical exam (CPE) BPH (benign prostatic hyperplasia) Poison derek dermatitis Hx of iron deficiency anemia Screening PSA (prostate specific antigen) Lumbar spondylosis Iron deficiency anemia Normal physical exam Anemia Sepsis Acute respiratory failure with hypoxia Pneumonia History of COVID-19 History of 2019 novel coronavirus disease (COVID-19) High cholesterol Arthritis Diabetes Contact dermatitis Narcotic drug use DMII (diabetes mellitus, type 2) Elevated liver transaminase level Lumbar radiculopathy, chronic Lumbar spinal stenosis Cervical radiculopathy Lumbar post-laminectomy syndrome Surgical History History of esophagogastroduodenoscopy (EGD) H/O colonoscopy History of elbow surgery History of lumbar fusion History of cholecystectomy Family History Father Liver problem Alcoholism Substance use disorder Mother No problems noted. Brother CAD (coronary artery disease) Social History Household Members: Family Housing: House Do you presently have visiting nurse or other home services: No Alcohol intake: never Patient Tobacco Use Status: Former Tobacco user Cigarette Packs Per Day: 0.5 Cigarettes Per Day: 10 Years Smoked: 10 e-Cigarette/Vaping Use: Never Used Second Hand Smoke Exposure: No service: No Current occupational status: disabled Current occupational exposures/hazards: No Cognitive needs: No (cane) Hearing needs: No Vision needs: Yes (reading glasses) Questionnaire PHQ-9 Over the last 2 weeks, how often have you been bothered by any of the following problems? 1. Little interest or pleasure in doing things: not at all 2. Feeling down, depressed, or hopeless: several days 3. Trouble falling or staying asleep, or sleeping too much: not at all 4. Feeling tired or having little energy: several days 5. Poor appetite or overeating: not at all 6. Feeling bad about yourself - or that you are a failure or have let yourself or your family down: not at all 7. Trouble concentrating on things, such as reading the newspaper or watching television: several days 8. Moving or speaking so slowly that other people could have noticed. Or the opposite - being so fidgety or restless that you have been moving around a lot more than usual: not at all 9. Thoughts that you would be better off or of hurting yourself in some way: not at all Total score: 3 Depression Screening Interpretation: Negative Depression Screening Done: Yes 70368 - PHQ-9 Billing: Yes Source: Developed by Drs. Enrico Chiang, Kassandra Neville, Farhat Pandey and colleagues, with an educational mann from [employer]. Thrive Questionnaire Date Thrive assessed: 10/05/23 I am a: Patient What is your living situation today?: I have a steady place to live Within the past 12 months, did the food you bought not last and you didn't have the money to get more?: Often true Within the past 12 months, did you worry whether your food would run out before you got money to buy more?: Often true Do you have trouble paying for medicines?: Yes Do you have trouble getting transportation to medical appointments?: Yes Do you have trouble paying your heating and electricity bill?: Yes Do you have trouble taking care of your child, family member or friend?: Yes Do you have trouble with day-to-day activities such as bathing, preparing meals, shopping, managing finances, etc.?: Yes Are you currently unemployed and looking for a job?: No Are you interested in more education?: No Please select the resources that you would like help with: None Currently or been in a relationship where the following occur: No concerns reported THRIVE Score: 4 AUDIT C Alcohol Use Questionnaire (AUDIT-C) 1. How often do you have a drink containing alcohol?: Never Total Score: 0 NICOLE-7 AMB Questionnaire NICOLE-7 Date NICOLE - 7 assessed: 10/05/23 Feeling nervous, anxious, or on edge: 1 = Several days Not being able to stop or control worryin = Not at all Worrying too much about different things: 0 = Not at all Trouble relaxin = Not at all Being so restless that it is hard to sit still: 0 = Not at all Becoming easily annoyed or irritable: 0 = Not at all Feeling afraid as if something awful might happen: 0 = Not at all Total NICOLE-7 score (0-4 normal; 5-9 mild; 10-14 moderate; 15-21 severe): 1 Source: Developed by Drs. Enrico Chiang, Kassandra Neville, Farhat Pandey and colleagues, with an educational mann from [employer]. NICOLE-7 Assessment Billing NICOLE-7 Assessment Tool: NICOLE-7 Assessment 91995 Review of Systems Const Details: Const Denies chills, Denies fatigue, Denies fever(s), Denies headache(s) and Denies weakness ENT Denies dizziness and Denies headache(s) Card Denies chest pain, Denies lightheadedness, Denies dyspnea and Denies other (Palpitations) Resp Denies cough, Denies dyspnea, Denies wheezing and Denies other ( shortness of breath) GI Denies abdominal pain, Denies melena, Denies hematochezia, Denies change in bowel habits, Denies dyspepsia and Denies nausea Denies hematuria and Denies dysuria Musc Denies abnormal gait, Denies myalgias, Denies arthralgias, Denies numbness and Denies tingling Skin/Breast Denies rash, Denies unusual bruising and Denies wounds Neuro Denies abnormal gait, Denies dizziness, Denies headache(s), Denies memory loss, Denies numbness, Denies Sensory deficit (Neuro), Denies tingling and Denies weakness Psych Denies anxiety, Denies depression, Denies memory loss Endo Denies cold intolerance, Denies fatigue, Denies heat intolerance, Denies polydipsia and Denies polyuria Aller/Immun Denies wheezing Physical exam (Primary Care) Vital Signs: Last Vital Signs Temp 97.3 F 10/05/23 09:24 Pulse 83 10/05/23 09:24 Resp 16 10/05/23 09:24 BP 114/74 10/05/23 09:24 Pulse Ox 98 10/05/23 09:24 Oxygen Delivery Method Room Air 10/05/23 09:24 BMI result Body Mass Index 28.7 Tobacco/Smoking Status: Tobacco use Status Tobacco use date assessed 10/05/23 10/05/23 09:23 Patient Tobacco Use Status Former Tobacco user 10/05/23 09:19 e-Cigarette/Vaping Use Never Used 10/05/23 09:19 PHQ-9: PHQ-9 Score PHQ-9: Total score 3 10/05/23 09:30 Depression Screening Interpretation: Negative Thrive Assessment: Date of Thrive Assessment Date Thrive assessed 10/05/23 10/05/23 09:30 Currently or been in a relationship where the following occur: No concerns reported Const Other: General: no acute distress and well developed Nutritional Appearance: well nourished Orientation/consciousness: patient oriented x3 HENMT Head: Yes normocephalic and Yes atraumatic Eyes General: appearance normal, both eyes and all related structures Pupils: Equal, round and reactive pupils present EOM: EOMs intact bilaterally Resp Effort & Inspection: normal respiratory effort Auscultation: clear to auscultation bilaterally Cardio Rate: regular rate Rhythm: regular rhythm Heart sounds: S1 normal heart sound present, S2 normal heart sound present, no gallops, no murmurs and no rubs GI Palpation (GI): No Abdominal aortic bruit present, Soft to palpation, nontender, No hepatosplenomegaly present and No Rebound tenderness present Auscultation: normal bowel sounds General: Yes no CVA tenderness Back/Spine/Pelvis Back: no CVA tenderness Cervical Spine: cervical ROM normal and No Cervical spine tenderness Thoracic/Lumbar Spine: thoraco-lumbar ROM normal, No pain with thoraco-lumbar ROM, No thoracic spinal tenderness and No lumbar spinal tenderness Extrem General: Yes normal to inspection, No edema and No calf tenderness Skin General: warm and dry. Normal skin color. Normal skin turgor Lesions: no lesions Rashes: no rashes Trauma: no lacerations or abrasions Wounds: no wounds Nails: normal Neuro General: patient oriented x3, gait normal and no focal neuro deficit Cranial nerves: Yes Equal, round and reactive pupils present Cognition (Neuro): normal cognition Gait exam (Neuro): Normal gait present Sensory Exam: No Sensory deficit (Neuro) Psych Appearance: grossly normal Affect: normal affect Attitude: cooperative Thought process: Normal thought process present Results AMB Hemoglobin A1c AMB Hemoglobin A1c 7.2 % Last Edit by SHEREE Antnoio on 10/05/23 11:0 4 Assessment and Plan Assessment & Plan (1) Anxiety and depression: Code(s): F41.9 - Anxiety disorder, unspecified; F32.A - Depression, unspecified Plan: Controlled anxiety and depressive symptoms on current treatment regimen PHQ-9 and NICOLE-7 scores are normal Advised to continue current treatment regimen Continue follow-up with therapist and psychiatrist as planned Verbalized understanding and agreed with the treatment plan (2) Hyperlipidemia: Code(s): E78.5 - Hyperlipidemia, unspecified Plan: Recent triglyceride showed significant improvement, 156. Total cholesterol and LDL levels increased from previous level, 249 and 169 respectively. HDL is normal, 49 He has not been taking his atorvastatin consistently due to forgetfulness. He declines [facility] services for medication management/administration at this time. He notes that he will start taking her medication as prescribed The MA called the pharmacy and was informed that fenofibrate 120 mg daily was declined by the patient's health plan. However, he picked up fenofibrate 54 mg daily x 90 days in June but has not went back for a refill. He also picked up atorvastatin 40 mg at bedtime x 90 days in June but has not when back for a refill. Advised to continue to take fenofibrate 120 mg daily and atorvastatin 40 mg at bedtime Advised to limit foods high in saturated fat and avoid foods high in trans fat Routine exercise encouraged Advised to get fasting lipid panel blood work done a few days before his next visit Follow-up in 3 months Verbalized understanding and agreed with the treatment plan (3) DMII (diabetes mellitus, type 2): Code(s): E11.9 - Type 2 diabetes mellitus without complications Plan: A1c today is 7.2%, slightly above goal of less than 7.0%. Previous A1c in April was 7.2% Continue current treatment regimen ADA diet and routine exercise encouraged. Advised to limit foods that are high in carbs or sugar Follow-up in 3 months or sooner with symptoms or concerns Verbalized understanding and agreed with treatment plan Orders: Orders Lipid Panel 3 Months E78.5 - Hyperlipidemia, unspecified Hemoglobin A1c Today E11.9 - Type 2 diabetes mellitus without complications Medications: New fenofibrate 54 mg PO DAILY 90 days 90 tabs 1RF Refilled atorvastatin 40 mg PO BEDTIME 90 days 90 tabs 1RF Discontinued fenofibrate Discontinued Reason: Doctor's Order 120 mg PO DAILY 90 days 90 tabs 1RF Coding Level of Care Code Est Pt Level 4 (34085) Complex EM visit Add On G2211 Diagnoses Anxiety and depression F41.9; F32.A Hyperlipidemia E78.5 DMII (diabetes mellitus, type 2) E11.9 Additional Codes NICOLE-7 Assessment Billing - NICOLE-7 Assessment Tool: NICOLE-7 Assessment 51415 ([id number])
[2023-10-05 09:24] VITALS: BP 114/74; PULSE 83; RESP 16; TEMP 36.3; O2SAT 98; BMI 28.7
== END 2023-10-05 10:18 | disposition home or self-care (01) ==
PROVIDERS: PCP Hospitalist; Visit Provider Nurse Practitioner Family
DX: E11.69 Type 2 diabetes mellitus with other specified complication (principal); F41.9 Anxiety disorder, unspecified; F32.A Depression, unspecified; E78.5 Hyperlipidemia, unspecified
CPT/HCPCS: 83036; 99214; G2211

== ENCOUNTER 2023-10-05 10:41 | Outpatient (REF) | payer OTHER, SELFPAY | END 2023-10-05 10:42 | disposition home or self-care (01) | LOC: HO.LAB 10:41 | PROVIDERS: Visit Provider Nurse Practitioner Family | DX: Z13.89 Encounter for screening for other disorder (principal) ==

== ENCOUNTER 2023-10-29 08:13 | Outpatient (AMB) | payer OTHER, SELFPAY ==
--- NOTE | 2023-10-29 08:15 | A.OFFVIS_ITS ---
Vital Signs 10/29/23 08:32 Height 6 ft 2 in Weight 220 lb BMI 28.2 BP 171/93 H Blood Pressure Location Rt brachial Position Sitting Pulse 110 H Pulse Source Pulse Oximeter Pulse Oximetry (%) 100 Oxygen Delivery Method Room Air Intake Visit Reasons: PILL COUNT Intake Note: Sridhar comes in today for a pill count to methadone, patient should have 24 tablets and presents with 26 tablets which he last took today 10/29/23 at 8:00am. 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/26. Counter Hand Required: No Accompanied by: Self / Same As Patient Allergies fentanyl Allergy (Intermediate, Verified 10/29/23 08:15) itching morphine [Amber] Allergy (Intermediate, Verified 10/29/23 08:15) itch Iodinated Contrast Media [IV Dye, Iodine Containing] Allergy (Mild, Verified 10/29/23 08:15) DIFFICULTY BREATHING,VOMITING amoxicillin [From Augmentin] Adverse Reaction (Intermediate, Verified 10/29/23 08:15) Diarrhea clavulanic acid [From Augmentin] Adverse Reaction (Intermediate, Verified 10/29/23 08:15) Diarrhea metformin Adverse Reaction (Intermediate, Verified 10/29/23 08:15) stomach pain HPI Comments Details: Patient presents today for a methadone pill count. He is supposed to have #24 pills in their possession and has #26 pills. Patient reports adequate analgesia on current opioid regime without any side effects. Patient reports acute on chronic left sided radiculopathy symptoms since one week ago when he was assisting his family with moving furniture. He reports due to inclement of weather and significant rainfall, he moved furniture too quick and felt shooting pain from his lower back into his left buttock and into his left calf and foot with numbness and tingling. Denies heaviness or weakness. Patient reports he wants to avoid surgery therefore has not made an appointment with [facility] for surgical evaluation. He plans to reschedule if symptoms become severe. Patient denies any bladder or bowel dysfunction or saddle anesthesia at this time. Denies any fever, sore throat, shortness of breaths, abdominal pain, cons tipation, sedation, nausea, dizziness, urinary retention, any significant changes in his medical history, medications or recent hospitalizations. Patient reports he started to see Psychiatrist at [facility] monthly and has been prescribed sertraline 25 mg daily for anxiety and depression. Reports adequate sleep since starting sertraline. [facility] Medical History Pre-op examination Colon cancer screening Left otitis media Weight loss, abnormal Nausea Irritable bowel syndrome with diarrhea Normal routine history and physical examination Low back pain Laboratory tests ordered as part of a complete physical exam (CPE) BPH (benign prostatic hyperplasia) Poison derek dermatitis Hx of iron deficiency anemia Screening PSA (prostate specific antigen) Lumbar spondylosis Iron deficiency anemia Normal physical exam Anemia Sepsis Acute respiratory failure with hypoxia Pneumonia History of COVID-19 History of 2019 novel coronavirus disease (COVID-19) High cholesterol Arthritis Diabetes Contact dermatitis Narcotic drug use DMII (diabetes mellitus, type 2) Elevated liver transaminase level Lumbar radiculopathy, chronic Lumbar spinal stenosis Cervical radiculopathy Lumbar post-laminectomy syndrome Surgical History History of esophagogastroduodenoscopy (EGD) H/O colonoscopy History of elbow surgery History of lumbar fusion History of cholecystectomy Family History Father Liver problem Alcoholism Substance use disorder Mother No problems noted. Brother CAD (coronary artery disease) Social History Household Members: Family Housing: House Do you presently have visiting nurse or other home services: No Alcohol intake: never Patient Tobacco Use Status: Former Tobacco user Cigarette Packs Per Day: 0.5 Cigarettes Per Day: 10 Years Smoked: 10 e-Cigarette/Vaping Use: Never Used Second Hand Smoke Exposure: No service: No Current occupational status: disabled Current occupational exposures/hazards: No Cognitive needs: No (cane) Hearing needs: No Vision needs: Yes (reading glasses) Review of Systems Const All systems reviewed & are unremarkable except as noted in HPI and below Physical Exam On exam today: Alert and oriented. No acute distress. Mood and affect appropriate. Follows and participates in conversation appropriately. Respiratory effort is unlabored. No cough. Able to transition from sit to stand unassisted. Able to stand and walk on toes and heels but reports occasional unsteadiness due to pain on the left. Limited lumbar ROM due to pain. Lumbar extension and flexion forward causes moderate pain. Positive SLR with dorsiflexion on the left in L5-S1 distribution. Valsalva maneuver is negative. Back/Spine/Pelvis Cervical Spine: cervical ROM normal and No Cervical spine tenderness Thoracic/Lumbar Spine: thoracic and lumbar spine normal to inspection, Thoracic/lumbar spine scar(s), Lasegue's sign positive on the left and localized, pain with thoraco-lumbar ROM, paraspinal muscle tenderness on the left greater than right, thoraco-lumbar ROM limited, No thoracic spinal tenderness and lumbar spinal tenderness (L3-S1) Pelvis: buttock tenderness on the left and sciatic notch tenderness on the left Sacroiliac joints: bilaterally tender to palpation Extrem General: Yes capillary refill normal, Yes no clubbing, cyanosis or edema and Yes no calf tenderness Psych Appearance: grossly normal and well kempt Mental Status: mental status grossly normal Speech and movement: Normal speech and movement present and Clear speech present Affect: normal affect Attitude: cooperative Thought process: Normal thought process present Thought content: Normal thought content present, suicidality (none), no hallucinations and No Depressive thoughts present Insight: Good insight present (Psych) Judgement: Good judgement present (Psych) Results Reviewed Results Reviewed: MR LUMBAR SPINE WITHOUT CONTRAST 01/30/23 CLINICAL INFORMATION: Low back pain. Bilateral leg pain, worse on the left side. Prior surgery. COMPARISON: MRI dated 12/08/2019. TECHNIQUE: Multiplanar, multisequence imaging was obtained. FINDINGS: VERTEBRAL BODIES AND PARASPINAL STRUCTURES: An interbody prosthesis is again visible at the L5-S1 level with a solid arthrodesis. Chronic fatty marrow degenerative endplate changes again visible at this level as well. The paraspinal soft tissues appear normal. There are [id number] degenerative changes of the sacroiliac joints. There is edema in the pedicles and posterior elements at the L4-L5 level which was not present on prior imaging and may be stress-related in etiology or reactive to severity of facet arthrosis. No compression fractures are seen. A mild anterolisthesis is again evident at the L4-L5 level as well. CONUS MEDULLARIS AND CAUDA EQUINE: The distal cord, conus tip, and cauda equina nerve roots appear normal. SPINAL LEVELS: L1-L2: No central canal stenosis or foraminal narrowing. No significant disc pathology. L2-L3: Well-hydrated normal appearance of the disc without central canal stenosis or foraminal narrowing. L3-L4: Slight posterior subluxation and broad-based disc bulge with a shallow central disc protrusion and hypertrophic facet arthropathy. Disc protrusion is slightly decreased in size compared to prior imaging with diminished mass effect upon the thecal sac. Mild central canal stenosis and mild bilateral foraminal narrowing. L4-L5: Mild anterolisthesis and broad-based disc bulge noted. Previous central disc protrusion has resorbed. Infolding and thickening of the ligamentum flavum with progressed advanced facet arthropathy contributes to moderate central canal stenosis with mild foraminal narrowing. Marrow edema in the pedicles and posterior elements. L5-S1: Post interbody fusion changes with a left-sided laminectomy defect. No central canal stenosis. Mild left foraminal narrowing is stable IMPRESSION: 1. Previous central disc protrusion at the L4-L5 level has resorbed. Stable mild anterolisthesis and slightly worsened advanced facet arthropathy with moderate central canal stenosis and mild foraminal narrowing. New edema in the pedicles and posterior elements at this level, presumably reactive/stress-related in etiology. 2. Status post interbody fusion with a solid arthrodesis at the L5-S1 level, as on prior imaging. 3. Shallow central disc protrusion at the L3-L4 level is slightly decreased in size with decreased mass effect upon the thecal sac. Mild central canal stenosis and foraminal narrowing. Assessment & Plan Assessment & Plan (1) Lumbar spinal stenosis: Code(s): M48.061 - Spinal stenosis, lumbar region without neurogenic claudication Category: Medical (2) Lumbar radiculopathy, chronic: Code(s): M54.16 - Radiculopathy, lumbar region Category: Medical (3) Lumbar post-laminectomy syndrome: Code(s): M96.1 - Postlaminectomy syndrome, not elsewhere classified Category: Medical (4) Opioid contract exists: Code(s): Z79.891 - half-way (current) use of opiate analgesic Category: Medical (5) Chronic pain syndrome: Code(s): G89.4 - Chronic pain syndrome Category: Medical (6) Lumbar spondylosis: Code(s): M47.816 - Spondylosis without myelopathy or radiculopathy, lumbar region Category: Medical Plan Patient has shown accountability for his medication regimen and the pill count was correct. There is no evidence of misuse, abuse or diversion at this time. [employer] reviewed. Script sent for methadone 10 mg BID for 30 days with advanced date of . Patient is aware of monitoring for side effects. Encouraged adequate hydration and daily fiber intake, and physical activity as tolerated. For acute on chronic left sided radiculopathy, script send for Medrol Emmanuel. Patient is not interested in inverventional treatments or surgical evaluation at this time. Reviewed side effects, including hyperglycemic effects of oral steroids. Patient will closely monitor his blood sugars for next few weeks. Patient is aware to call if pain worsens or if he develops any red flag symptoms to seek emergency care. Patient denies any cauda equina syndrome symptoms at this time. Patient encouraged to avoid heavy lifting or pulling. All questions were answered and the patient is in agreement with the plan. Follow up in 4 weeks for a pill count and sooner if needed. Medications: Refilled methylprednisolone (Medrol (Emmanuel)) PO PER PKG DIR 21 ea 0RF pain M48.061 - Spinal stenosis, lumbar region without neurogenic claudication, M54.16 - R adiculopathy, lumbar region, M96.1 - Postlaminectomy syndrome, not elsewhere classified methadone Partial Fill upon patient request. 10 mg PO BID 30 days 60 tabs 0RF pain MDD 2 M47.816 - Spondylosis without myelopathy or radiculopathy, lumbar region, M48.061 - Spinal stenosis, lumbar region without neurogenic claudication, M54.16 - Radiculopathy, lumbar region, M96.1 - Postlaminectomy syndrome, not elsewhere classified Coding Level of Care Code Est Pt Level 4 (82306) Diagnoses Lumbar spinal stenosis M48.061 Lumbar radiculopathy, chronic M54.16 Lumbar post-laminectomy syndrome M96.1 Opioid contract exists Z79.891 Chronic pain syndrome G89.4 Lumbar spondylosis M47.816
[2023-10-29 08:32] VITALS: BP 171/93; PULSE 110; O2SAT 100; BMI 28.2
== END 2023-10-29 08:50 | disposition home or self-care (01) ==
PROVIDERS: PCP Hospitalist; Visit Provider Nurse Practitioner Family
DX: G89.4 Chronic pain syndrome (principal); M48.061 Spinal stenosis, lumbar region without neurogenic claudication; M54.16 Radiculopathy, lumbar region; Z79.891 Long term (current) use of opiate analgesic; M96.1 Postlaminectomy syndrome, not elsewhere classified; M47.816 Spondylosis without myelopathy or radiculopathy, lumbar region
CPT/HCPCS: 99214

== ENCOUNTER → 2023-10-29 08:13 | Outpatient (BNVA) | payer OTHER, SELFPAY | PROVIDERS: PCP Hospitalist; Visit Provider Nurse Practitioner Family | DX: Z51.81 Encounter for therapeutic drug level monitoring (principal); M48.061 Spinal stenosis, lumbar region without neurogenic claudication; M54.16 Radiculopathy, lumbar region; M96.1 Postlaminectomy syndrome, not elsewhere classified; M47.816 Spondylosis without myelopathy or radiculopathy, lumbar region; G89.4 Chronic pain syndrome; Z79.891 Long term (current) use of opiate analgesic | CPT/HCPCS: 99212 ==

== ENCOUNTER 2023-11-08 09:25 | Outpatient (AMB) | payer OTHER, SELFPAY ==
--- NOTE | 2023-11-08 09:34 | A.OFFVIS_ITS ---
Vital Signs 11/08/23 09:39 Height 6 ft 2 in Weight 222 lb 10.67 oz BMI 28.6 BP 124/74 Blood Pressure Location Rt brachial Position Sitting Pulse 72 Intake Visit Reasons: 6 months follow up GERD Intake Note: Sridhar presents to in office follow up of GERD. CC: Patient reports doing very good and feeling a lot better than before. Denies having any GI symptoms today. Muffle Operator Required: No Accompanied by: Self / Same As Patient Allergies fentanyl Allergy (Intermediate, Verified 11/26/23 08:19) itching morphine [Amber] Allergy (Intermediate, Verified 11/26/23 08:19) itch Iodinated Contrast Media [IV Dye, Iodine Containing] Allergy (Mild, Verified 11/26/23 08:19) DIFFICULTY BREATHING,VOMITING amoxicillin [From Augmentin] Adverse Reaction (Intermediate, Verified 11/26/23 08:19) Diarrhea clavulanic acid [From Augmentin] Adverse Reaction (Intermediate, Verified 11/26/23 08:19) Diarrhea metformin Adverse Reaction (Intermediate, Verified 11/26/23 08:19) stomach pain HPI HPI 6 months follow up GERD: Details: Assessment & Plan (1) Irritable bowel syndrome with both constipation and diarrhea: Code(s): K58.2 - Mixed irritable bowel syndrome (2) BARROSO (nonalcoholic steatohepatitis): Code(s): K75.81 - Nonalcoholic steatohepatitis (BARROSO) (3) History of cholecystectomy: Comment: Danielle 2007 Code(s): Z90.49 - Acquired absence of other specified parts of digestive tract (4) GERD (gastroesophageal reflux disease): Code(s): K21.9 - Gastro-esophageal reflux disease without esophagitis Qualifiers: Esophagitis bleeding: without hemorrhage Esophagitis presence: with esophagitis Qualified Code(s): K21.00 - Gastro-esophageal reflux disease with esophagitis, without bleeding Plan MAURITANIAN-SPEAKING He is due for labs for the liver and an ultrasound elastography. He does not know why his new PCP is requesting a EGD since his GERD is well controlled, he is eating well and movoing his bowels well wtih normal, formed stools. He has only occasional epigastric discomfort depending on what he eats. He does not have any good indication for an EGD, and is not due for a colonoscopy until 2027. His new PCP is Dr. Caro in [place]. He is due for an ultrasound with elastography to check his liver as well as some liver function tests which were ordered today. ROV 6 mos. Orders: Orders Comprehensive Met. Panel Today K75.81 - Nonalcoholic steatohepatitis (BARROSO), Z01.818 - Encounter for other preprocedural examination Gamma Glutamyl Transpeptidase Today K75.81 - Nonalcoholic steatohepatitis (BARROSO), Z01.818 - Encounter for other preprocedural examination Alpha Fetoprotein Today K75.81 - Nonalcoholic steatohepatitis (BARROSO), Z01.818 - Encounter for other preprocedural examination US abdomen comp w elastography Today K75.81 - Nonalcoholic steatohepatitis (BARROSO) Medications: Refilled omeprazole 40 mg PO DAILY 90 caps 1RF K21.00 - Gastro-esophageal reflux disease with esophagitis, without bleeding LABS: Laboratory Tests 06/26/23 08/20/23 10/05/23 06:13 06:22 11:03 WBC 4.9 Hgb 13.9 L Hct 41.6 L MCV 87.8 MCH 29.3 Plt Count 229 D Estimated GFR > 60 Hgb A1c (Clinic) 7.2 H Total Bilirubin 0.6 GGT 36 AST 30 ALT 53 H Alkaline Phosphatase 69 Alpha Fetoprotein 1.3 ULTRASOUND OF THE ABDOMEN WITH ELASTOGRAPHY CORRESPONDENCE On 10/02/23 @ 09:05 Ana Wick Wrote To Ana Wick (2) I will speak to him about it at his appointment thank you On 09/27/23 @ 13:24 Fide Villalta Wrote To DelanoAna Patient did not show for US ordered at last visit, US was scheduled on 05/08. He has 6 months follow up on 10/08. TODAY'S VISIT MAURITANIAN-SPEAKING mom He continues to do well on his omeprazole. We review the labs but the US with elast has not been done yet - it seems there was confusion as he also had 2 renal US recently. He feels better than ever. ROV 6 mos. PFSH Medical History Pre-op examination Colon cancer screening Left otitis media Weight loss, abnormal Nausea Irritable bowel syndrome with diarrhea Normal routine history and physical examination Low back pain Laboratory tests ordered as part of a complete physical exam (CPE) BPH (benign prostatic hyperplasia) Poison derek dermatitis Hx of iron deficiency anemia Screening PSA (prostate specific antigen) Lumbar spondylosis Iron deficiency anemia Normal physical exam Anemia Sepsis Acute respiratory failure with hypoxia Pneumonia History of COVID-19 History of 2019 novel coronavirus disease (COVID-19) High cholesterol Arthritis Diabetes Contact dermatitis Narcotic drug use DMII (diabetes mellitus, type 2) Elevated liver transaminase level Lumbar radiculopathy, chronic Lumbar spinal stenosis Cervical radiculopathy Lumbar post-laminectomy syndrome Surgical History History of esophagogastroduodenoscopy (EGD) H/O colonoscopy History of elbow surgery History of lumbar fusion History of cholecystectomy Family History Father Liver problem Alcoholism Substance use disorder Mother No problems noted. Brother CAD (coronary artery disease) Social History Household Members: Family Housing: House Do you presently have visiting nurse or other home services: No Alcohol intake: never Patient Tobacco Use Status: Former Tobacco user Cigarette Packs Per Day: 0.5 Cigarettes Per Day: 10 Years Smoked: 10 e-Cigarette/Vaping Use: Never Used Second Hand Smoke Exposure: No service: No Current occupational status: disabled Current occupational exposures/hazards: No Cognitive needs: No (cane) Hearing needs: No Vision needs: Yes (reading glasses) Review of Systems Const Denies fatigue, Denies fever(s), Denies night sweats, Denies poor appetite and Denies weight loss ENT Reports Normal hearing present, Denies dental pain, Denies dysphagia, Denies hearing loss, Denies mouth pain, Denies odynophagia, Denies throat swelling, Denies tongue swelling and Reports other (Dentition adequate) Card Reports no additional complaints Resp Reports no additional complaints GI Details: Denies abdominal pain, Denies melena, Denies bloating, Denies hematochezia, Denies constipation, Denies GI cramping, Denies dysphagia, Denies excessive flatus, Denies early satiety, Reports heartburn, Denies diarrhea, Denies nausea, Denies odynophagia, Denies vomiting and Denies hematemesis Skin/Breast Denies pruritus, Denies lesions, Denies rash and Denies jaundice Neuro Reports Normal hearing present and Denies Abnormal speech present Endo Denies fatigue Aller/Immun Denies throat swelling and Denies tongue swelling Physical Exam Vital Signs: Last Vital Signs Pulse 72 11/08/23 09:39 BP 124/74 11/08/23 09:39 BMI result Body Mass Index 28.6 Const General: cooperative, no acute distress, well developed and well groomed Nutritional Appearance: well nourished and overweight Orientation/consciousness: oriented to person, oriented to place and oriented to time Limitations: No language barrier HEENT Head: Yes normocephalic and Yes atraumatic Eyes General: appearance normal, both eyes and all related structures Pupils: Equal, round and reactive pupils present Neck Neck: Yes normal visual inspection and Yes no lymphadenopathy Thyroid: Thyroid normal Resp Effort & Inspection: normal respiratory effort and able to speak in complete sentences Auscultation: clear to auscultation bilaterally Cardio Rate: regular rate Rhythm: regular rhythm Heart sounds: Normal, physiologic split S2 sound present Peripheral pulses: radial pulses present and posterior tibial pulses present GI Inspection: No distended and No Abdominal panniculus present Palpation (GI): Soft to palpation, nontender, no guarding, not rigid and No hepatosplenomegaly present Percussion: Yes normal to percussion Auscultation: normal bowel sounds Rectal Exam - Male: Yes deferred Skin General skin exam: no rashes or lesions noted, turgor normal, skin not dry, no jaundice, No spider nevi and no striae Rashes: no rashes Nails: normal Neuro General: oriented to person, oriented to place and oriented to time Cranial nerves: Yes Equal, round and reactive pupils present and Yes Normal hearing present Speech: No Abnormal speech present Extrem General: Yes normal to inspection, No clubbing, No cyanosis and No edema Psych Appearance: grossly normal and well kempt Mental Status: mental status grossly normal Speech and movement: Normal speech and movement present Affect: normal affect Attitude: cooperative Thought process: Normal thought process present and not confabulating Thought content: Normal thought content present Insight: Limited insight present (Psych) Judgement: Limited judgement present (Psych) Assessment & Plan Assessment & Plan (1) BARROSO (nonalcoholic steatohepatitis): Comment: 06/25/2405/05/2406 [id number] WBC 4.9 Hgb 13.9 L Hct 41.6 L MCV 87.8 MCH 29.3 Plt Count 229 D Estimated GFR > 60 Hgb A1c (Clinic) 7.2 H Total Bilirubin 0.6 GGT 36 AST 30 ALT 53 H Alkaline Phosphatase 69 Alpha Fetoprotein 1.3 Code(s): K75.81 - Nonalcoholic steatohepatitis (BARROSO) Category: Medical (2) GERD (gastroesophageal reflux disease): Code(s): K21.9 - Gastro-esophageal reflux disease without esophagitis Category: Medical Qualifiers: Esophagitis presence: with esophagitis Esophagitis bleeding: without hemorrhage Qualified Code(s): K21.00 - Gastro-esophageal reflux disease with esophagitis, without bleeding Plan MAURITANIAN-SPEAKING mom He continues to do well on his omeprazole. We review the labs but the US with elast has not been done yet - it seems there was confusion as he also had 2 renal US recently. He feels better than ever. ROV 6 mos. Medications: Refilled 2 omeprazole 40 mg PO DAILY 90 caps 1RF K21.00 - Gastro-esophageal reflux disease with esophagitis, without bleeding Coding Level of Care Code Est Pt Level 3 (97699) Diagnoses BARROSO (nonalcoholic steatohepatitis) K75.81 Gastroesophageal reflux disease with esophagitis without hemorrhage K21.00 Esophagitis presence: with esophagitis Esophagitis bleeding: without hemorrhage
[2023-11-08 09:39] VITALS: BP 124/74; PULSE 72; BMI 28.6
== END 2023-11-08 13:02 | disposition home or self-care (01) ==
PROVIDERS: PCP Hospitalist; Visit Provider Nurse Practitioner
DX: K75.81 Nonalcoholic steatohepatitis (NASH) (principal); K21.00 Gastro-esophageal reflux disease with esophagitis, without bleeding
CPT/HCPCS: 99213

== ENCOUNTER → 2023-11-08 09:25 | Outpatient (BNVA) | payer OTHER, SELFPAY | PROVIDERS: PCP Hospitalist; Visit Provider Nurse Practitioner | DX: K21.00 Gastro-esophageal reflux disease with esophagitis, without bleeding (principal); K58.2 Mixed irritable bowel syndrome; K75.81 Nonalcoholic steatohepatitis (NASH); Z90.49 Acquired absence of other specified parts of digestive tract | CPT/HCPCS: 99212 ==

== ENCOUNTER 2023-11-14 08:07 | Emergency (ER) | payer OTHER, SELFPAY ==
[2023-11-14 08:12] VITALS: BP 137/83; PULSE 98; RESP 18; TEMP 36.6; O2SAT 98; BMI 28.6
--- NOTE | 2023-11-14 09:15 | ED.GENADULT ---
HPI - General Adult General Chief complaint: Back Pain/Injury Stated complaint: back pain Time Seen by Provider: 11/14/23 09:10 Source: patient Mode of arrival: ambulatory Limitations: no limitations History of Present Illness ED Provider: Cristy Arthur PA-C HPI narrative: Patient is a 63 year old assigned male at with a history of CPS and chronic back pain presenting to the emergency department today with an episode of acute on chronic back pain. Patient states that 2 weeks ago he lifted a heavy sofa and has had left sided low back pain that radiates into his left leg since then. Patient denies any dizziness, lightheadedness, abdominal pain, nausea, vomiting, fever, chills, blurry vision, double vision, loss of vision, chest pain, difficulty breathing, shortness of breath, night sweats, pain with urination, increased urinary frequency, increased urinary urgency, blood in his urine or stool, syncope or a near syncopal episode, bowel incontinence, bladder incontinence, or any other complaints at this time. Onset (ago): week(s) (2) Relieving factors: none Exacerbating factors: none Associated symptoms: denies other symptoms Treatments prior to arrival: none Related Data Home Medications ?Medication ?Instructions ?Recorded ?Confirmed syringe with needle 3 mL 18 x 1 #100 ea 04/26/23 10/05/2303/20 (BD Luer-Pilo Syringe) sertraline 25 mg tablet 25 mg PO DAILY 07/05/23 10/05/23 Previous Rx's ?Medication ?Instructions ?Recorded blood-glucose meter (FreeStyle #1 ea 06/06/21 Lite Meter kit) acetaminophen 650 mg 650 mg PO Q8H PRN pain 30 days #90 11/24/22 tablet,extended release (Tylenol tabs Arthritis Pain) meloxicam 15 mg tablet 15 mg PO DAILY PRN pain 30 days 12/22/22 #30 tabs blood sugar diagnostic (FreeStyle #100 ea 03/23/23 Lite Strips) lancets 28 gauge (FreeStyle #100 ea 03/23/23 Lancets) insulin syringe-needle U-100 1 mL #10 ea 03/27/23 30 gauge x 5/16 (Advocate Syringes) linagliptin 5 mg tablet (Tradjenta) 5 mg PO DAILY #90 tabs 04/11/23 safety needles 25 gauge x 1 1/2 #2 ea 04/11/23 (BD Eclipse Luer-Pilo) syringe with cannula,disposabl 3 #2 ea 04/17/23 mL 18 x 1 gabapentin 300 mg capsule 300 mg PO BID pain 90 days #180 05/31/23 caps fluticasone propionate 50 1 spray intranasal Q12H #16 grams 07/02/23 mcg/actuation nasal spray,suspension (Flonase Allergy Relief) naloxone 4 mg/actuation nasal 4 mg intranasal Q2M PRN opioid 07/04/23 spray (Narcan) overdose #2 ea sildenafil 100 mg tablet 100 mg PO ONCE PRN sexual activity 07/09/23 30 days #30 tabs testosterone cypionate 200 mg/mL 200 mg IM Q2W 4 weeks #2 mL 08/27/23 intramuscular oil (Depo-Testosterone) fenofibrate 54 mg tablet 54 mg PO DAILY 90 days #90 tabs 10/05/23 methadone 10 mg tablet 10 mg PO BID pain 30 days #60 tabs 10/29/23 omeprazole 40 mg capsule,delayed 40 mg PO DAILY #90 caps 11/08/23 release cyclobenzaprine 5 mg tablet 5 mg PO TID PRN low back pain 7 11/14/23 days #21 tabs prednisone 20 mg tablet 20 mg PO DAILY 12 days #26 tabs 11/14/23 Allergies Allergy/AdvReac Type Severity Reaction Status Date / Time fentanyl Allergy Intermediate itching Verified 11/14/23 08:14 morphine [Amber] Allergy Intermediate itch Verified 11/14/23 08:14 Iodinated Contrast Media Allergy Mild DIFFICULTY Verified 11/14/23 08:14 [IV Dye, Iodine Containing] BREATHING,VOMITING amoxicillin [From Augmentin] AdvReac Intermediate Diarrhea Verified 11/14/23 08:14 clavulanic acid AdvReac Intermediate Diarrhea Verified 11/14/23 08:14 [From Augmentin] metformin AdvReac Intermediate stomach Verified 11/14/23 08:14 pain Review of Systems Constitutional: Constitutional: Reports no additional constitutional complaints, Denies chills, Denies fever(s) and Denies night sweats Eyes: Eyes: Reports no additional eye complaints, Denies blurry vision, Denies change in vision, Denies diplopia, Denies eye discharge, Denies loss of vision and Denies eye pain ENT: Denies dizziness Cardiovascular: Cardiovascular: Reports no additional cardiovascular complaints, Denies chest pain, Denies lightheadedness, Denies Loss of Consciousness and Denies dyspnea Respiratory: Respiratory: Reports no additional respiratory complaints and Denies dyspnea Gastrointestinal: Gastrointestinal: Reports no additional gastrointestinal complaints, Denies abdominal pain, Denies melena, Denies hematochezia, Denies change in bowel habits and Denies change in stool character Genitourinary: Genitourinary: Reports no additional male genitourinary complaints, Denies hematuria, Denies oliguria, Denies difficulty urinating, Denies dysuria, Denies urinary frequency, Denies urinary hesitancy, Denies urinary incontinence and Denies urinary urgency Musculoskeletal: Musculoskeletal: Reports no additional musculoskeletal complaints, Reports back pain, Denies numbness and Denies tingling Neurologic: Denies dizziness, Denies loss of vision, Denies numbness and Denies tingling Psychiatric: Psychiatric: Reports no additional psychiatric complaints Endocrine: Endocrine: Reports no additional endocrine complaints Hematologic/Lymphatic: Hematologic/Lymphatic: Reports no additional hematologic/lymphatic complaints Allergic/Immunologic: Allergic/Immunologic: Reports no additional allergic/immunologic complaints [facility] Past Medical History Attestation statement: The following information was validated with the patient. Source: old records reviewed and nursing notes reviewed Medical History Pre-op examination Colon cancer screening Left otitis media Weight loss, abnormal Nausea Irritable bowel syndrome with diarrhea Normal routine history and physical examination Low back pain Laboratory tests ordered as part of a complete physical exam (CPE) BPH (benign prostatic hyperplasia) Poison derek dermatitis Hx of iron deficiency anemia Screening PSA (prostate specific antigen) Lumbar spondylosis Iron deficiency anemia Normal physical exam Anemia Sepsis Acute respiratory failure with hypoxia Pneumonia History of COVID-19 History of 2019 novel coronavirus disease (COVID-19) High cholesterol Arthritis Diabetes Contact dermatitis Narcotic drug use DMII (diabetes mellitus, type 2) Elevated liver transaminase level Lumbar radiculopathy, chronic Lumbar spinal stenosis Cervical radiculopathy Lumbar post-laminectomy syndrome Surgical History History of esophagogastroduodenoscopy (EGD) H/O colonoscopy History of elbow surgery History of lumbar fusion History of cholecystectomy Family History Family History Father Liver problem Alcoholism Substance use disorder Mother No problems noted. Brother CAD (coronary artery disease) Social History Social History Household Members: Family Housing: House Do you presently have visiting nurse or other home services: No Alcohol intake: never Patient Tobacco Use Status: Former Tobacco user Cigarette Packs Per Day: 0.5 Cigarettes Per Day: 10 Years Smoked: 10 e-Cigarette/Vaping Use: Never Used Second Hand Smoke Exposure: No Advance Directives: No Advance Directives Information Provided: No Do you have a plan to hurt others: No Plan service: No Current occupational status: disabled Current occupational exposures/hazards: No Cognitive needs: No (cane) Hearing needs: No Vision needs: Yes (reading glasses) Physical Exam ED Vital Signs: Vital Signs - 24 hr 11/14/23 08:12 Temperature 98 F Pulse Rate 98 Respiratory Rate 18 Blood Pressure 137/83 Pulse Oximetry 98 Oxygen Delivery Method Room Air BMI result Body Mass Index 28.6 Const General: cooperative, no acute distress, alert and awake Nutritional Appearance: well nourished Orientation/consciousness: patient oriented x3 Limitations: no limitations HENMT Head: Yes normal to inspection and Yes atraumatic Ears: hearing grossly normal bilaterally and external ears normal General nose exam: Normal external nose present, no nasal discharge noted and no epistaxis Face and sinus: Yes normal facial exam, No abrasion and No laceration Mouth: Normal oral and palatal mucosa present, no drooling and no muffled voice Eyes General: appearance normal, both eyes and all related structures Periorbital: periorbital findings normal Eyelids: Yes eyelids normal Conjunctivae: conjunctivae normal Pupils: Equal, round and reactive pupils present EOM: EOMs intact bilaterally Neck Neck: Yes normal visual inspection, Yes full ROM and Yes no lymphadenopathy Chest Chest palpation & inspection: normal inspection of the chest Resp Effort & Inspection: normal respiratory effort and able to speak in complete sentences GI Inspection: Yes normal to inspection Neuro General: patient oriented x3 and moves all extremities Cranial nerves: Yes Equal, round and reactive pupils present Cognition (Neuro): normal cognition Extrem General: Yes normal to inspection, Yes full ROM and Yes capillary refill normal Psych Appearance: grossly normal Mental Status: mental status grossly normal Affect: normal affect Attitude: cooperative Thought process: Normal thought process present Thought content: Normal thought content present Insight: Good insight present (Psych) Medical Decision Making Medical Decision Making MDM Narrative: Patient is a 63 year old assigned male at with a history of CPS and chronic low back pain presenting to the emergency department today with acute on chronic low back pain. Patient's physical exam was unremarkable. I explained my physical exam findings to the patient. I answered all questions asked by the patient. I stressed the importance of the patient taking his medication as directed (either prescribed or as the over the counter packaging recommends). I stressed the importance of the patient following up with his primary care provider. I stressed the importance of the patient returning to the emergency department immediately if his symptoms were to worsen or if he were to develop any dizziness, shortness of breath, difficulty breathing, chest pain, blurry vision, loss of vision, nausea, vomiting, abdominal pain, fever, chills, back pain, or any other complaints. Patient verbalized agreement and understanding with this treatment plan and discharge. Differential Diagnosis Differential Diagnoses: The differential diagnosis associated with the presentation includes Acute on chronic low back pain Lumbar sprain Lumbar strain Admission/Observation Consideration of admission/observation: Escalation of care including admission/observation considered Patient would have been admitted to the hospital had his work up had any findings where hospital admission was appropriate and his clinical presentation warranted hospital admission. Discharge Plan Discharge Clinical Impression: Lumbar sprain Patient Disposition: Home, Self-Care Instructions: Acute Low Back Pain (ED) Additional Instructions: The prednisone will increase your sugars. Please discuss with your PCP if you need to adjust your insulin / diabetes medication accordingly. Follow up with your primary care provider. Return to the emergency department immediately if your symptoms worsen or if you develop any dizziness, shortness of breath, difficulty breathing, chest pain, blurry vision, loss of vision, nausea, vomiting, abdominal pain, fever, chills, back pain, or any other complaints. Prescriptions: New cyclobenzaprine 5 mg tablet 5 mg PO TID PRN (Reason: low back pain) 7 Days Qty: 21 0RF prednisone 20 mg tablet 20 mg PO DAILY 12 Days Qty: 26 0RF Rx Instructions: Take 3 tablets for 5 days THEN; Take 2 tablets for 4 days THEN; Take 1 tablet for 3 days No Action (DME) insulin syringe-needle U-100 [Advocate Syringes] 1 mL 30 gauge x 5/16 syringe See Rx Instructions .Route Qty: 10 1RF Rx Instructions: As directed (DME) BD Eclipse Luer-Pilo 25 gauge x 1 1/2 needle See Rx Instructions .ROUTE .MEDSUPPLY Qty: 2 5RF Rx Instructions: As directed for biweekly injection (injecting needle)- 2 per month Tradjenta 5 mg tablet 5 mg PO DAILY Qty: 90 3RF (DME) syringe with cannula,disposabl 3 mL 18 x 1 syringe See Rx Instructions .Route Qty: 2 5RF Rx Instructions: As directed for biweekly Testosterone injection- 2 per month naloxone [Narcan] 4 mg/actuation spray,non-aerosol 4 mg intranasal Q2M PRN (Reason: opioid overdose) Qty: 2 1RF Rx Instructions: spray 1 dose into ONE nostril; alternate nostrils w each dose until help arrives sildenafil 100 mg tablet 100 mg PO ONCE PRN (Reason: sexual activity) 30 Days Qty: 30 0RF Rx Instructions: administer 30 minutes to 4 hours before activity USE GOODRX COUPON ATTACHED (DME) blood-glucose meter [FreeStyle Lite Meter] Kit See Rx Instructions .ROUTE .MEDSUPPLY Qty: 1 0RF Rx Instructions: check blood sugars daily and pern (DME) lancets [FreeStyle Lancets] 28 gauge misc See Rx Instructions .ROUTE .MEDSUPPLY Qty: 100 4RF Rx Instructions: POC testing 4 times daily (DME) FreeStyle Lite Strips Strip See Rx Instructions .ROUTE .MEDSUPPLY Qty: 100 4RF Rx Instructions: POC 4 times daily fluticasone propionate [Flonase Allergy Relief] 50 mcg/actuation spray,suspension 1 spray intranasal Q12H Qty: 16 1RF Rx Instructions: administer into each nostril fenofibrate 54 mg tablet 54 mg PO DAILY 90 Days Qty: 90 1RF acetaminophen [Tylenol Arthritis Pain] 650 mg tablet extended release 650 mg PO Q8H PRN (Reason: pain) 30 Days Qty: 90 0RF meloxicam 15 mg tablet 15 mg PO DAILY PRN (Reason: pain) 30 Days Qty: 30 0RF (DME) BD Luer-Pilo Syringe 3 mL 18 x 1 1/2 syringe See Rx Instructions .ROUTE .MEDSUPPLY Qty: 100 Rx Instructions: As directed gabapentin 300 mg capsule 300 mg PO BID 90 Days Qty: 180 6RF testosterone cypionate [Depo-Testosterone] 200 mg/mL oil 200 mg IM Q2W 28 Days Qty: 2 2RF omeprazole 40 mg capsule,delayed release(DR/EC) 40 mg PO DAILY Qty: 90 1RF sertraline 25 mg tablet 25 mg PO DAILY methadone 10 mg tablet 10 mg PO BID MDD 2 30 Days Qty: 60 0RF Rx Instructions: Partial Fill upon patient request. Referrals: [facility] [place] Family Medicine [Provider Group] (Call to establish and follow up with a primary care provider. If you already have a primary care provider, please follow up with them.) [facility] [place] Primary Care, [place] [Provider Group] (Call to establish and follow up with a primary care provider. If you already have a primary care provider, please follow up with them.) [facility] [place] Primary Care,[place] [Provider Group] (Call to establish and follow up with a primary care provider. If you already have a primary care provider, please follow up with them.) Discharge Date/Time: 11/14/23 10:26 Print Language: Faroese
--- NOTE | 2023-11-14 10:26 | PC.NURSE ---
Pt left without paperwork
== END 2023-11-14 10:26 | disposition home or self-care (01) ==
PROVIDERS: Emergency Provider Emergency Medicine Emergency Medical Services
DX: S33.5XXA Sprain of ligaments of lumbar spine, initial encounter (principal); X50.0XXA Overexertion from strenuous movement or load, initial encounter; Z79.899 Other long term (current) drug therapy; Y93.89 Activity, other specified; Y92.9 Unspecified place or not applicable; Y99.9 Unspecified external cause status
CPT/HCPCS: 99281; 99283

== ENCOUNTER 2023-11-20 08:11 | Outpatient (REF) | payer OTHER, SELFPAY ==
[2023-11-20 09:35] LABS: Hematocrit 42.1 % (42.0-52.0); Hemoglobin 13.5 g/dl (14.0-18.0); Mean Corpuscular HGB Conc 32.1 g/dl (31.0-36.0); Mean Corpuscular Hemoglobin 28.7 pg (27.0-33.0); Mean Corpuscular Volume 89.4 fL (80.0-98.0); Mean Platelet Volume 11.1 fL (9.4-12.4); Platelet Count 197 X10*3/uL (160-400); Red Blood Count 4.71 X10*6/uL (4.60-5.80); Red Cell Distribution Width 12.3 % (11.0-16.0)
[2023-11-24 21:28] LABS: Testosterone, Free 24.2 pg/mL (35.0-155.0); Testosterone, Total 222 ng/dL (250-1100)
== END 2023-11-20 08:12 | disposition home or self-care (01) ==
LOC: HO.LAB 08:11
PROVIDERS: PCP Nurse Practitioner Family; Visit Provider Urology
DX: R79.89 Other specified abnormal findings of blood chemistry (principal); Z79.890 Hormone replacement therapy
CPT/HCPCS: 36415; 84402; 84403; 85027

== ENCOUNTER 2023-11-25 11:48 | Emergency (ER) | payer OTHER, SELFPAY ==
--- NOTE | ~2023-11-25 | XR_ITS ---
EXAMINATION: XR LUMBOSACRAL SPINE CLINICAL INFORMATION: Back pain. Injury. COMPARISON: Lumbar spine x-rays of 10/13/2021 TECHNIQUE: Three views of the lumbosacral spine. FINDINGS: There are 5 lumbar-type nonrib-bearing vertebrae. Minimal anterior wedge compression of L1 is a stable finding. Remainder of the vertebral body heights are maintained. Stable mild grade 1 anterolisthesis of L4 over L5. Intervertebral well incorporated disc spacer is redemonstrated at L5-S1. Facet arthropathy at L4-5 and L5-S1. Multilevel small anterolateral endplate osteophytes are noted. No suspicious lytic or blastic osseous lesions. Postcholecystectomy clips in the right upper abdominal quadrant. Limited evaluation of the sacroiliac joints are unremarkable. XR/XR lumbar spine 2-3V IMPRESSION: No evidence of acute compression fracture or traumatic subluxation. Essentially, no significant interval change is noted in the appearance of the lumbar spine compared to previous x-ray of 10/13/2021. Electronically signed by: Elle Rodriguez MD 11/25/2023 02:13 PM EDT
[2023-11-25 11:50] VITALS: BP 148/89; PULSE 88; RESP 19; TEMP 36.6; O2SAT 98; BMI 28.6
--- NOTE | 2023-11-25 11:52 | ED_ITS ---
HPI - General Adult General Chief complaint: Back Pain/Injury Stated complaint: Back pain Time Seen by Provider: 11/25/23 12:39 Source: patient, RN notes reviewed and old records reviewed Mode of arrival: ambulatory History of Present Illness ED Provider: Brenda Sandoval PA-C HPI narrative: 63-year-old male with a past medical history of IBS, anemia, arthritis, diabetes, lumbar post laminectomy syndrome, presenting to the ED complaining of acute on chronic low back pain > left x2 weeks. Admits to pain radiating down LLE. Denies known injury/trauma or fall, numbness, tingling, weakness, incontinence/retention, fever, abdominal pain, hematuria / dysuria. Patient was evaluated in our ED on 11/14/23 for similar symptoms prescribed Cyclobenzaprine and Prednisone with some relief. Related Data Home Medications ?Medication ?Instructions ?Recorded ?Confirmed syringe with needle 3 mL 18 x 1 #100 ea 04/26/23 10/05/23 1/2 (BD Luer-Pilo Syringe) sertraline 25 mg tablet 25 mg PO DAILY 07/05/23 10/05/23 Previous Rx's ?Medication ?Instructions ?Recorded blood-glucose meter (FreeStyle #1 ea 06/06/21 Lite Meter kit) acetaminophen 650 mg 650 mg PO Q8H PRN pain 30 days #90 11/24/22 tablet,extended release (Tylenol tabs Arthritis Pain) meloxicam 15 mg tablet 15 mg PO DAILY PRN pain 30 days 12/22/22 #30 tabs blood sugar diagnostic (FreeStyle #100 ea 03/23/23 Lite Strips) lancets 28 gauge (FreeStyle #100 ea 03/23/23 Lancets) insulin syringe-needle U-100 1 mL #10 ea 03/27/23 30 gauge x 5/16 (Advocate Syringes) linagliptin 5 mg tablet (Tradjenta) 5 mg PO DAILY #90 tabs 04/11/23 safety needles 25 gauge x 1 1/2 #2 ea 04/11/23 (BD Eclipse Luer-Pilo) syringe with cannula,disposabl 3 #2 ea 04/17/23 mL 18 x 1 gabapentin 300 mg capsule 300 mg PO BID pain 90 days #180 05/31/23 caps fluticasone propionate 50 1 spray intranasal Q12H #16 grams 07/02/23 mcg/actuation nasal spray,suspension (Flonase Allergy Relief) naloxone 4 mg/actuation nasal 4 mg intranasal Q2M PRN opioid 07/04/23 spray (Narcan) overdose #2 ea sildenafil 100 mg tablet 100 mg PO ONCE PRN sexual activity 07/09/23 30 days #30 tabs testosterone cypionate 200 mg/mL 200 mg IM Q2W 4 weeks #2 mL 08/27/23 intramuscular oil (Depo-Testosterone) fenofibrate 54 mg tablet 54 mg PO DAILY 90 days #90 tabs 10/05/23 methadone 10 mg tablet 10 mg PO BID pain 30 days #60 tabs 10/29/23 omeprazole 40 mg capsule,delayed 40 mg PO DAILY #90 caps 11/08/23 release cyclobenzaprine 5 mg tablet 5 mg PO TID PRN low back pain 7 11/14/23 days #21 tabs prednisone 20 mg tablet 20 mg PO DAILY 12 days #26 tabs 11/14/23 acetaminophen 500 mg tablet 500 mg PO Q6H PRN fever or pain 11/25/23 (Tylenol Extra Strength) #14 tabs cyclobenzaprine 5 mg tablet 5 mg PO Q8H PRN pain (scale score 11/25/23 7-10) 5 days #14 tabs lidocaine 5 % topical patch 1 patch topical DAILY PRN pain #30 11/25/23 (Lidoderm) ea naproxen 500 mg tablet 500 mg PO BID PRN pain 10 days #20 11/25/23 tabs Allergies Allergy/AdvReac Type Severity Reaction Status Date / Time fentanyl Allergy Intermediate itching Verified 11/25/23 11:51 morphine [Amber] Allergy Intermediate itch Verified 11/25/23 11:51 Iodinated Contrast Media Allergy Mild DIFFICULTY Verified 11/25/23 11:51 [IV Dye, Iodine Containing] BREATHING,VOMITING amoxicillin [From Augmentin] AdvReac Intermediate Diarrhea Verified 11/25/23 11:51 clavulanic acid AdvReac Intermediate Diarrhea Verified 11/25/23 11:51 [From Augmentin] metformin AdvReac Intermediate stomach Verified 11/25/23 11:51 pain Review of Systems Review of Systems: Yes all other systems are reviewed and are negative Constitutional: Constitutional: Reports as per HPI Neurologic: Denies Sensory deficit (Neuro) PMFSH Past Medical History Attestation statement: The following information was validated with the patient. Source: old records reviewed Medical History Pre-op examination Colon cancer screening Left otitis media Weight loss, abnormal Nausea Irritable bowel syndrome with diarrhea Normal routine history and physical examination Low back pain Laboratory tests ordered as part of a complete physical exam (CPE) BPH (benign prostatic hyperplasia) Poison derek dermatitis Hx of iron deficiency anemia Screening PSA (prostate specific antigen) Lumbar spondylosis Iron deficiency anemia Normal physical exam Anemia Sepsis Acute respiratory failure with hypoxia Pneumonia History of COVID-19 History of 2019 novel coronavirus disease (COVID-19) High cholesterol Arthritis Diabetes Contact dermatitis Narcotic drug use DMII (diabetes mellitus, type 2) Elevated liver transaminase level Lumbar radiculopathy, chronic Lumbar spinal stenosis Cervical radiculopathy Lumbar post-laminectomy syndrome Surgical History History of esophagogastroduodenoscopy (EGD) H/O colonoscopy History of elbow surgery History of lumbar fusion History of cholecystectomy Family History Family History Father Liver problem Alcoholism Substance use disorder Mother No problems noted. Brother CAD (coronary artery disease) Social History Social History Household Members: Family Housing: House Do you presently have visiting nurse or other home services: No Alcohol intake: never Patient Tobacco Use Status: Former Tobacco user Cigarette Packs Per Day: 0.5 Cigarettes Per Day: 10 Years Smoked: 10 e-Cigarette/Vaping Use: Never Used Second Hand Smoke Exposure: No Advance Directives: No Advance Directives Information Provided: No Do you have a plan to hurt others: No Plan service: No Current occupational status: disabled Current occupational exposures/hazards: No Cognitive needs: No (cane) Hearing needs: No Vision needs: Yes (reading glasses) Physical Exam ED Vital Signs: Vital Signs - 24 hr 11/25/23 11:50 Temperature 98 F Pulse Rate 88 Respiratory Rate 19 Blood Pressure 148/89 H Pulse Oximetry 98 Oxygen Delivery Method Room Air BMI result Body Mass Index 28.6 Const General: cooperative, healthy appearing and no acute distress Orientation/consciousness: patient oriented x3 Limitations: no limitations HENMT Head: Yes normal to inspection and Yes atraumatic Ears: hearing grossly normal bilaterally General nose exam: Normal external nose present Face and sinus: Yes normal facial exam Eyes General: appearance normal, both eyes and all related structures EOM: EOMs intact bilaterally Neck Neck: Yes normal visual inspection and Yes no meningeal signs Resp Effort & Inspection: normal respiratory effort and no respiratory distress Auscultation: clear to auscultation bilaterally Cardio Rate: regular rate Heart sounds: S1 normal heart sound present and S2 normal heart sound present GI Inspection: Yes normal to inspection Palpation (GI): Soft to palpation, nontender, no guarding and not rigid General: Yes no CVA tenderness Back/Spine/Pelvis Other: No midline cervical/thoracic/lumbar spinous tenderness/step-off or deformity. + left-sided lower lumbar MSK/paraspinal reproducible tenderness. No CVAT. No rash/erythema or ecchymosis Back: no CVA tenderness Skin Rashes: no rashes Wounds: no wounds Neuro Other: Strength intact throughout. No saddle anesthesia. Sensation intact to light touch. Neurovascular intact distally +straight leg raise to LLE General: patient oriented x3, gait normal, tone normal, moves all extremities and no meningeal signs Cranial nerves: Yes CN's II-XII intact bilaterally Gait exam (Neuro): Normal gait present Motor exam (neuro): 5/5 motor strength present throughout Sensory Exam: No Sensory deficit (Neuro) Extrem General: Yes normal to inspection Course Course Course Narrative: RME performed by Cristy Arthur PA-C. Patient is a 63 year old assigned male at presenting to the emergency department with low back pain. Patient states over the last 2 weeks he has had significant low back pain. Detailed physical exam and review of systems are deferred to the diamond sizer. Imaging ordered. Patient placed back in the waiting room pending room availability and results. XR lumbar spine 2-3V IMPRESSION: No evidence of acute compression fracture or traumatic subluxation. Essentially, no significant interval change is noted in the appearance of the lumbar spine compared to previous x-ray of 10/13/2021. Results discussed with patient including worrisome signs and symptoms and strict return precautions, and when to return to the emergency department. They verbalized understanding and feel safe for discharge at this time. Medications Administered Discontinued Medications Generic Name Dose Route Start Last Admin Trade Name Freq PRN Reason Stop Dose Admin Cyclobenzaprine HCl 10 mg 11/25/23 12:56 11/25/23 13:13 Cyclobenzaprine Hcl 10 Mg Tablet PO 11/25/23 12:57 10 mg ONCE ONE Administration Ketorolac Tromethamine 30 mg 11/25/23 12:56 11/25/23 13:15 Ketorolac Tromethamine 30 Mg/Ml Vial IM 11/25/23 12:57 30 mg ONCE ONE Administration Medical Decision Making Medical Decision Making [facility] Narrative: 63-year-old male with a past medical history of IBS, anemia, arthritis, d iabetes, lumbar post laminectomy syndrome, presenting to the ED complaining of acute on chronic low back pain > left x2 weeks. On exam vital signs stable, NAD, nontoxic appearing, no midline spinous tenderness, no red flag symptoms, ambulating with steady gait. Concern for MSK pain/strain vs sciatica vs herniated disc. Low suspicion for fracture, cauda equina/cord compression, epidural abscess, renal stone/pyelo plan: X-ray ordered in triage, pain control Please refer to course for remaining clinical decision making, interpretation of labs/imaging results, and discussions with consultants and/or family members. Differential Diagnosis Differential Diagnoses: The differential diagnosis associated with the presentation includes As above Admission/Observation Consideration of admission/observation: Escalation of care including admission/observation considered Lab Data [facility] Lab Attestation statement: I reviewed the patient's lab results. Independent Interpretation I performed an independent interpretation of an: Plain X-Ray Radiology Impression Discussion of test interpretation with radiology: I have reviewed the radiologist's reading. External Record Review External record reviewed: Inpatient record, Office record, Outpatient record, Prior outpatient labs, Prior outpatient radiology, Primary care record and Outside ED record Tests considered The following testing was considered but not selected: As above Prescription Management I considered prescription management with: Pain Medication Discharge Plan Discharge Clinical Impression: Low back pain Patient Disposition: Home, Self-Care Instructions: Acute Low Back Pain (ED) Additional Instructions: Your pain is likely musculoskeletal Flexeril is a muscle relaxer, take at night as it makes you drowsy, do not drive, drink alcohol, or operate machinery while taking it Naproxen as an anti-inflammatory / pain medication, take with food Lidoderm patches are numbing patches, apply to painful area In addition take Tylenol at home If symptoms persist or worsen, pain becomes unbearable, you developed urinary retention or incontinence, or weakness return to the ED Prescriptions: New acetaminophen [Tylenol Extra Strength] 500 mg tablet 500 mg PO Q6H PRN (Reason: fever or pain) Qty: 14 0RF lidocaine [Lidoderm] 5 % adhesive patch,medicated 1 patch topical DAILY MDD remove after 12 hours PRN (Reason: pain) Qty: 30 0RF Rx Instructions: leave on most painful area for up to 12 hrs naproxen 500 mg tablet 500 mg PO BID PRN (Reason: pain) 10 Days Qty: 20 0RF cyclobenzaprine 5 mg tablet 5 mg PO Q8H PRN (Reason: pain (scale score 7-10)) 5 Days Qty: 14 0RF No Action (DME) insulin syringe-needle U-100 [Advocate Syringes] 1 mL 30 gauge x 5/16 syringe See Rx Instructions .Route Qty: 10 1RF Rx Instructions: As directed (DME) BD Eclipse Luer-Pilo 25 gauge x 1 1/2 needle See Rx Instructions .ROUTE .MEDSUPPLY Qty: 2 5RF Rx Instructions: As directed for biweekly injection (injecting needle)- 2 per month Tradjenta 5 mg tablet 5 mg PO DAILY Qty: 90 3RF (DME) syringe with cannula,disposabl 3 mL 18 x 1 syringe See Rx Instructions .Route Qty: 2 5RF Rx Instructions: As directed for biweekly Testosterone injection- 2 per month naloxone [Narcan] 4 mg/actuation spray,non-aerosol 4 mg intranasal Q2M PRN (Reason: opioid overdose) Qty: 2 1RF Rx Instructions: spray 1 dose into ONE nostril; alternate nostrils w each dose until help arrives sildenafil 100 mg tablet 100 mg PO ONCE PRN (Reason: sexual activity) 30 Days Qty: 30 0RF Rx Instructions: administer 30 minutes to 4 hours before activity USE GOODRX COUPON ATTACHED cyclobenzaprine 5 mg tablet 5 mg PO TID PRN (Reason: low back pain) 7 Days Qty: 21 0RF prednisone 20 mg tablet 20 mg PO DAILY 12 Days Qty: 26 0RF Rx Instructions: Take 3 tablets for 5 days THEN; Take 2 tablets for 4 days THEN; Take 1 tablet for 3 days (DME) blood-glucose meter [FreeStyle Lite Meter] Kit See Rx Instructions .ROUTE .MEDSUPPLY Qty: 1 0RF Rx Instructions: check blood sugars daily and pern (DME) lancets [FreeStyle Lancets] 28 gauge misc See Rx Instructions .ROUTE .MEDSUPPLY Qty: 100 4RF Rx Instructions: POC testing 4 times daily (DME) FreeStyle Lite Strips Strip See Rx Instructions .ROUTE .MEDSUPPLY Qty: 100 4RF Rx Instructions: POC 4 times daily fluticasone propionate [Flonase Allergy Relief] 50 mcg/actuation spray,suspension 1 spray intranasal Q12H Qty: 16 1RF Rx Instructions: administer into each nostril fenofibrate 54 mg tablet 54 mg PO DAILY 90 Days Qty: 90 1RF acetaminophen [Tylenol Arthritis Pain] 650 mg tablet extended release 650 mg PO Q8H PRN (Reason: pain) 30 Days Qty: 90 0RF meloxicam 15 mg tablet 15 mg PO DAILY PRN (Reason: pain) 30 Days Qty: 30 0RF (DME) BD Luer-Pilo Syringe 3 mL 18 x 1 1/2 syringe See Rx Instructions .ROUTE .MEDSUPPLY Qty: 100 Rx Instructions: As directed gabapentin 300 mg capsule 300 mg PO BID 90 Days Qty: 180 6RF testosterone cypionate [Depo-Testosterone] 200 mg/mL oil 200 mg IM Q2W 28 Days Qty: 2 2RF omeprazole 40 mg capsule,delayed release(DR/EC) 40 mg PO DAILY Qty: 90 1RF sertraline 25 mg tablet 25 mg PO DAILY methadone 10 mg tablet 10 mg PO BID MDD 2 30 Days Qty: 60 0RF Rx Instructions: Partial Fill upon patient request. [place]: [facility] [place] Group] [facility] [place]] Eldon Caro CNP [Primary Care Provider] - 2 days Print Language: Pashto
[2023-11-25] MEDS: Cyclobenzaprine HCl 10 MG TABLET PO (13:13)
[2023-11-25] MEDS: Ketorolac Tromethamine 30 MG/ML VIAL IM (13:15)
[2023-11-25 14:39] VITALS: BP 148/89; PULSE 88; RESP 19; TEMP 36.6; O2SAT 98
== END 2023-11-25 14:39 | disposition home or self-care (01) ==
PROVIDERS: Emergency Provider Emergency Medicine Emergency Medical Services; PCP Nurse Practitioner Family
DX: M54.50 Low back pain, unspecified (principal); M79.605 Pain in left leg; E11.9 Type 2 diabetes mellitus without complications; Z79.899 Other long term (current) drug therapy; Z79.4 Long term (current) use of insulin
CPT/HCPCS: 72100; 96372; 99283; 99284; J1885

== ENCOUNTER 2023-11-26 08:13 | Outpatient (AMB) | payer OTHER, SELFPAY ==
--- NOTE | 2023-11-26 08:15 | A.OFFVIS_ITS ---
Vital Signs 11/26/23 08:30 Height 6 ft 2 in Weight 222 lb BMI 28.5 BP 155/64 H Blood Pressure Location Lt brachial Position Sitting Pulse 89 Pulse Source Pulse Oximeter Pulse Oximetry (%) 98 Oxygen Delivery Method Room Air Intake Visit Reasons: Pill Count Intake Note: Sridhar comes in today for a pill count to methadone, patient should have 32 tablets and presents with 36 tablets which he last took today 11/26/23 at 8am. 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/26. Patient states that he was seen last night 11/25/23 at [facility] due to increased back pain. Security Ambassador Required: No Accompanied by: Self / Same As Patient Allergies fentanyl Allergy (Intermediate, Verified 11/26/23 08:19) itching morphine [Amber] Allergy (Intermediate, Verified 11/26/23 08:19) itch Iodinated Contrast Media [IV Dye, Iodine Containing] Allergy (Mild, Verified 11/26/23 08:19) DIFFICULTY BREATHING,VOMITING amoxicillin [From Augmentin] Adverse Reaction (Intermediate, Verified 11/26/23 08:19) Diarrhea clavulanic acid [From Augmentin] Adverse Reaction (Intermediate, Verified 11/26/23 08:19) Diarrhea metformin Adverse Reaction (Intermediate, Verified 11/26/23 08:19) stomach pain HPI Comments Details: Patient presents today for a methadone pill count. He is supposed to have #32 pills in their possession and has #36 pills. Patient reports re-current acute on chronic left sided radiculopathy symptoms due to heavy lifting of heavy sofa 3 weeks ago which exacerbated his low back pain with radiation into his left lower extremity posteriorly and laterally. He was evaluated at our ER on 11/14/23 and 11/25/23 and was treated initially with prednisone and cyclobenzaprine and yesterday was treated with cyclobenzaprine and ketorolac injection. Updated lumbar spine xray is noted below. Patient reports his back and radicular left leg pain is much better than last week since ketorolac injection yesterday in ER. He continues to decline interventional treatments and states I'm very very scared of injections after last attempt with Caudal ERNST with sedation. Patient reports he will reconsider neurosurgical option and make an appointment with Dr. Spain's office. Patient denies any bladder or bowel dysfunction or saddle anesthesia at this time. Denies any fever, sore throat, shortness of breaths, abdominal pain, constipation, sedation, nausea, dizziness, urinary retention, any significant changes in his medical history, medications or recent hospitalizations. Patient reports he started to see Psychiatrist at [facility] monthly and has been prescribed sertraline 25 mg daily for anxiety and depression. [facility] Medical History Pre-op examination Colon cancer screening Left otitis media Weight loss, abnormal Nausea Irritable bowel syndrome with diarrhea Normal routine history and physical examination Low back pain Laboratory tests ordered as part of a complete physical exam (CPE) BPH (benign prostatic hyperplasia) Poison derek dermatitis Hx of iron deficiency anemia Screening PSA (prostate specific antigen) Lumbar spondylosis Iron deficiency anemia Normal physical exam Anemia Sepsis Acute respiratory failure with hypoxia Pneumonia History of COVID-19 History of 2019 novel coronavirus disease (COVID-19) High cholesterol Arthritis Diabetes Contact dermatitis Narcotic drug use DMII (diabetes mellitus, type 2) Elevated liver transaminase level Lumbar radiculopathy, chronic Lumbar spinal stenosis Cervical radiculopathy Lumbar post-laminectomy syndrome Surgical History History of esophagogastroduodenoscopy (EGD) H/O colonoscopy History of elbow surgery History of lumbar fusion History of cholecystectomy Family History Father Liver problem Alcoholism Substance use disorder Mother No problems noted. Brother CAD (coronary artery disease) Social History Household Members: Family Housing: House Do you presently have visiting nurse or other home services: No Alcohol intake: never Patient Tobacco Use Status: Former Tobacco user Cigarette Packs Per Day: 0.5 Cigarettes Per Day: 10 Years Smoked: 10 e-Cigarette/Vaping Use: Never Used Second Hand Smoke Exposure: No service: No Current occupational status: disabled Current occupational exposures/hazards: No Cognitive needs: No (cane) Hearing needs: No Vision needs: Yes (reading glasses) Review of Systems Const All systems reviewed & are unremarkable except as noted in HPI and below Physical Exam Vital Signs: Last Vital Signs Pulse 89 11/26/23 08:30 BP 155/64 H 11/26/23 08:30 Pulse Ox 98 11/26/23 08:30 Oxygen Delivery Method Room Air 11/26/23 08:30 BMI result Body Mass Index 28.5 On exam today: Alert and oriented. No acute distress. Mood and affect appropriate. Follows and participates in conversation appropriately. Respiratory effort is unlabored. No cough. Able to transition from sit to stand unassisted. Able to stand and walk on toes and heels but reports occasional unsteadiness on the left due to pain. Limited lumbar ROM due to pain. Lumbar extension and flexion forward causes moderate pain. Positive SLR with dorsiflexion on the left in L5-S1 distribution. Valsalva maneuver is negative. Back/Spine/Pelvis Cervical Spine: cervical ROM normal, cervical muscular tenderness, pain with cervical ROM and No Cervical spine tenderness Thoracic/Lumbar Spine: thoracic and lumbar spine normal to inspection, Thoracic/lumbar spine scar(s), Lasegue's sign positive on the left and localized, pain with thoraco-lumbar ROM, paraspinal muscle tenderness on the left greater than right, thoraco-lumbar ROM limited, No thoracic spinal tenderness and lumbar spinal tenderness (L3-S1) Pelvis: buttock tenderness on the left and sciatic notch tenderness on the left Sacroiliac joints: bilaterally tender to palpation Extrem General: Yes capillary refill normal, Yes no clubbing, cyanosis or edema and Yes no calf tenderness Psych Appearance: grossly normal and well kempt Mental Status: mental status grossly normal Speech and movement: Normal speech and movement present and Clear speech present Affect: normal affect Attitude: cooperative Thought process: Normal thought process present Thought content: Normal thought content present, suicidality (none), no hallucinations and No Depressive thoughts present Insight: Good insight present (Psych) Judgement: Good judgement present (Psych) Results Reviewed Results Reviewed: XR LUMBOSACRAL SPINE 11/25/23 CLINICAL INFORMATION: Back pain. Injury. COMPARISON: Lumbar spine x-rays of 10/13/2021 FINDINGS: There are 5 lumbar-type nonrib-bearing vertebrae. Minimal anterior wedge compression of L1 is a stable finding. Remainder of the vertebral body heights are maintained. Stable mild grade 1 anterolisthesis of L4 over L5. Intervertebral well incorporated disc spacer is redemonstrated at L5-S1. Facet arthropathy at L4-5 and L5-S1. Multilevel small anterolateral endplate osteophytes are noted. No suspicious lytic or blastic osseous lesions. Postcholecystectomy clips in the right upper abdominal quadrant. Limited evaluation of the sacroiliac joints are unremarkable. IMPRESSION: No evidence of acute compression fracture or traumatic subluxation. Essentially, no significant interval change is noted in the appearance of the lumbar spine compared to previous x-ray of 10/13/2021. MR LUMBAR SPINE WITHOUT CONTRAST 01/30/23 CLINICAL INFORMATION: Low back pain. Bilateral leg pain, worse on the left side. Prior surgery. COMPARISON: MRI dated 12/08/2019. TECHNIQUE: Multiplanar, multisequence imaging was obtained. FINDINGS: VERTEBRAL BODIES AND PARASPINAL STRUCTURES: An interbody prosthesis is again visible at the L5-S1 level with a solid arthrodesis. Chronic fatty marrow degenerative endplate changes again visible at this level as well. The paraspinal soft tissues appear normal. There are [id number] degenerative changes of the sacroiliac joints. There is edema in the pedicles and posterior elements at the L4-L5 level which was not present on prior imaging and may be stress-related in etiology or reactive to severity of facet arthrosis. No compression fractures are seen. A mild anterolisthesis is again evident at the L4-L5 level as well. CONUS MEDULLARIS AND CAUDA EQUINE: The distal cord, conus tip, and cauda equina nerve roots appear normal. SPINAL LEVELS: L1-L2: No central canal stenosis or foraminal narrowing. No significant disc pathology. L2-L3: Well-hydrated normal appearance of the disc without central canal stenosis or foraminal narrowing. L3-L4: Slight posterior subluxation and broad-based disc bulge with a shallow central disc protrusion and hypertrophic facet arthropathy. Disc protrusion is slightly decreased in size compared to prior imaging with diminished mass effect upon the thecal sac. Mild central canal stenosis and mild bilateral foraminal narrowing. L4-L5: Mild anterolisthesis and broad-based disc bulge noted. Previous central disc protrusion has resorbed. Infolding and thickening of the ligamentum flavum with progressed advanced facet arthropathy contributes to moderate central canal stenosis with mild foraminal narrowing. Marrow edema in the pedicles and posterior elements. L5-S1: Post interbody fusion changes with a left-sided laminectomy defect. No central canal stenosis. Mild left foraminal narrowing is stable IMPRESSION: 1. Previous central disc protrusion at the L4-L5 level has resorbed. Stable mild anterolisthesis and slightly worsened advanced facet arthropathy with moderate central canal stenosis and mild foraminal narrowing. New edema in the pedicles and posterior elements at this level, presumably reactive/stress-related in etiology. 2. Status post interbody fusion with a solid arthrodesis at the L5-S1 level, as on prior imaging. 3. Shallow central disc protrusion at the L3-L4 level is slightly decreased in size with decreased mass effect upon the thecal sac. Mild central canal stenosis and foraminal narrowing. Assessment & Plan Assessment & Plan (1) Lumbar spinal stenosis: Code(s): M48.061 - Spinal stenosis, lumbar region without neurogenic claudication Category: Medical (2) Lumbar radiculopathy, chronic: Code(s): M54.16 - Radiculopathy, lumbar region Category: Medical (3) Lumbar post-laminectomy syndrome: Code(s): M96.1 - Postlaminectomy syndrome, not elsewhere classified Category: Medical (4) Opioid contract exists: Code(s): Z79.891 - apple packing header (current) use of opiate analgesic Category: Medical (5) Chronic pain syndrome: Code(s): G89.4 - Chronic pain syndrome Category: Medical (6) Lumbar spondylosis: Code(s): M47.816 - Spondylosis without myelopathy or radiculopathy, lumbar region Category: Medical Plan Patient has shown accountability for his medication regimen and the pill count was correct. There is no evidence of misuse, abuse or diversion at this time. [employer] reviewed. Script sent for methadone 10 mg BID for 30 days with advanced date of 12/12/23. Patient is aware of monitoring for side effects. Encouraged adequate hydration and daily fiber intake, and physical activity as tolerated. For acute on chronic left sided radiculopathy, patient is not interested in inverventional treatments, including another attempt with Caudal ERNST under sedation but will reach out to [facility] for surgical evaluation. Recent visits at [facility] were reviewed. Patient is aware to call if pain worsens or if he develops any red flag symptoms to seek emergency care. Patient denies any cauda equina syndrome symptoms at this time. Patient encouraged to avoid heavy lifting or pulling. All questions were answered and the patient is in agreement with the plan. Follow up in 4 weeks for a pill count and sooner if needed. Medications: Refilled meloxicam 15 mg PO DAILY 30 days PRN 30 tabs 0RF pain M47.816 - Spondylosis without myelopathy or radiculopathy, lumbar region, M48.061 - Spinal stenosis, lumbar region without neurogenic claudication, M54.16 - Radiculopathy, lumbar region methadone Partial Fill upon patient request. 10 mg PO BID 30 days 60 tabs 0RF pain MDD 2 M47.816 - Spondylosis without myelopathy or radiculopathy, lumbar region, M48.061 - Spinal stenosis, lumbar region without neurogenic claudication, M54.16 - Radiculopathy, lumbar region, M96.1 - Postlaminectomy syndrome, not elsewhere classified Discontinued naproxen Discontinued Reason: Patient no longer taking 500 mg PO BID 10 days PRN 20 tabs 0RF pain Coding Level of Care Code Est Pt Level 4 (25817) Complex EM visit Add On G2211 Diagnoses Lumbar spinal stenosis M48.061 Lumbar radiculopathy, chronic M54.16 Lumbar post-laminectomy syndrome M96.1 Opioid contract exists Z79.891 Chronic pain syndrome G89.4 Lumbar spondylosis M47.816
[2023-11-26 08:30] VITALS: BP 155/64; PULSE 89; O2SAT 98; BMI 28.5
== END 2023-11-26 08:55 | disposition home or self-care (01) ==
PROVIDERS: PCP Hospitalist; Visit Provider Nurse Practitioner Family
DX: M48.061 Spinal stenosis, lumbar region without neurogenic claudication (principal); M54.16 Radiculopathy, lumbar region; M96.1 Postlaminectomy syndrome, not elsewhere classified; Z79.891 Long term (current) use of opiate analgesic; G89.4 Chronic pain syndrome; M47.816 Spondylosis without myelopathy or radiculopathy, lumbar region
CPT/HCPCS: 99214; G2211

== ENCOUNTER → 2023-11-26 08:13 | Outpatient (BNVA) | payer OTHER, SELFPAY | PROVIDERS: PCP Hospitalist; Visit Provider Nurse Practitioner Family | DX: M48.061 Spinal stenosis, lumbar region without neurogenic claudication (principal); M54.16 Radiculopathy, lumbar region; M96.1 Postlaminectomy syndrome, not elsewhere classified; Z79.891 Long term (current) use of opiate analgesic; M47.816 Spondylosis without myelopathy or radiculopathy, lumbar region; G89.4 Chronic pain syndrome | CPT/HCPCS: 99212 ==

== ENCOUNTER 2023-11-29 08:08 | Outpatient (AMB) | payer OTHER, SELFPAY ==
--- NOTE | 2023-11-29 08:24 | A.OFFVIS_ITS ---
Intake Visit Reasons: 3M Testo/cbc (Set) Intake Note: Patient presents today for a follow-up Labs Results: testosterone and CBC Meds- Sildenafil & Testosterone Depo Allergies to Antibiotic- Amoxicillin, Augmentin Blood Thinner- None Video Clerk Required: No Video Clerk Services: Video Clerk Offered & Declined Accompanied by: Self / Same As Patient Allergies fentanyl Allergy (Intermediate, Verified 11/26/23 08:19) itching morphine [Amber] Allergy (Intermediate, Verified 11/26/23 08:19) itch Iodinated Contrast Media [IV Dye, Iodine Containing] Allergy (Mild, Verified 11/26/23 08:19) DIFFICULTY BREATHING,VOMITING amoxicillin [From Augmentin] Adverse Reaction (Intermediate, Verified 11/26/23 08:19) Diarrhea clavulanic acid [From Augmentin] Adverse Reaction (Intermediate, Verified 11/26/23 08:19) Diarrhea metformin Adverse Reaction (Intermediate, Verified 11/26/23 08:19) stomach pain Medication List - Last Reconciled 11/29/23 by Apolinar Pierson, RN acetaminophen (Tylenol Extra Strength) 500 mg PO Q6H PRN acetaminophen ER (Tylenol Arthritis Pain) 650 mg PO Q8H PRN 30 days blood sugar diagnostic (FreeStyle Lite Strips) POC 4 times daily blood-glucose meter (FreeStyle Lite Meter kit) check blood sugars daily and pern cyclobenzaprine 5 mg PO Q8H PRN 5 days cyclobenzaprine 5 mg PO TID PRN 7 days fenofibrate 54 mg PO DAILY 90 days fluticasone propionate 50 mcg/actuation (Flonase Allergy Relief) 1 spray intranasal Q12H gabapentin 300 mg PO BID 90 days insulin syringe-needle U-100 (Advocate Syringes) As directed lancets (FreeStyle Lancets) POC testing 4 times daily lidocaine 5% (Lidoderm) 1 patch topical DAILY PRN MDD remove after 12 hours linagliptin (Tradjenta) 5 mg PO DAILY meloxicam 15 mg PO DAILY PRN 30 days methadone 10 mg PO BID 30 days MDD 2 naloxone 4 mg/actuation (Narcan) 4 mg intranasal Q2M PRN omeprazole 40 mg PO DAILY safety needles (BD Eclipse Luer-Pilo) As directed for biweekly injection (injecting needle)- 2 per month sertraline 25 mg PO DAILY sildenafil 100 mg PO ONCE PRN 30 days syringe with cannula,disposabl As directed for biweekly Testosterone injection- 2 per month syringe with needle (BD Luer-Pilo Syringe) As directed testosterone cypionate (Depo-Testosterone) 200 mg IM Q2W 4 weeks HPI Comments Details: 11/29/23--Sridhar is here for follow-up. He has been evaluated due to low testosterone, Comorbidity methadone use. CoMorbidity Diabetes. Declined interpreter for the deaf. 11/20/23--Hct- 42.1%, T- testosterone 222ng/dL, F-test-24.2. The patient states that sometimes he forgets to use the injection, he states he has been prescribed the gel in the past and that mode of therapy worked better for him. Will prescribe the AndroGel daily. Follow-up in 3 months with repeat labs. Review of chart: 08/27/23---Sridhar is here for follow-up. He has been evaluated due to low testosterone, Comorbidity methadone use. c/o's of ED. CoMorbidity Diabetes. He had a renal ultrasound a year ago noting is low. Left kidney stone. He is here to review recent ultrasound results discussed renal ultrasound 08/17/2023 - No kidney stones noted. PSA 06/26/2023--PSA 0.66. The patient did not have the testosterone refilled. Will refill testosterone replacement medication he is instructed to have labs done in 2 months for free and total testosterone and hematocrit. 06/28/2023-- Sridhar is a 62-year-old male who presents today to the office for follow up to review lab results, I have reviewed PSA 06/26/2023--0.66 ng/mL. CBC is within normal limits. Testosterone levels are pending. The patient did not have the renal ultrasound done to follow-up on management for kidney stones. Sridhar states that when he uses the Viagra 50 mg he does not get adequate effect. He states that he ordered a medication online that seems to work better. I asked him what was the medication he stated that he did not know. I have advised him to avoid using medications ordered online. I have discussed increasing the Viagra to 100 mg. Plan-testosterone levels are pending I will wait for these results before refilling testosterone replacement therapy. Renal ultrasound ordered. Follow- up in 3 months to recheck lab work and follow-up on ultrasound. Viagra 100 mg p.r.n. prior to sexual activity. Side effects discussed including erection longer than 4 hours to seek immediate emergency room attention. 02/26/2023--Sridhar is a 62 year old male with complaint of difficulty maintaining and erection.? IIEF - 5 score 8. in a monagamous relationship, able to achieve an erection for penetration, --complains of early ejaculation then sometimes able to get an erection sometimes not successful --states is causing him to be anxious about the situation, states order some meds online --(testosterone boosters and another med to help erections which seemed to help) He denies Urgency or obstructive voiding symptoms, denies dysuria CoMorbidities- Diabetes, h/o narcotic use on methadone I reviewed Repeat Testosterone levels: 01/19/23-- TT- 158, FT- 25 He was initially evaluated on 05/01/2022 as a new patient for erectile dysfunction and complaints of premature ejaculation. He was prescribed Paxil 20 mg and Viagra 50 mg to use prior to intercourse prn. He developed nausea secondary to taking Paxil 20 mg so is not taking this med. he is on methadone.?- trial of paxil 20 mg daily-pt stopped. Viagra 50 (1/2-1 tab prn 30 minutes prior to intercourse) Plan--Failed Testosterone 20.25 mg per 1.25 gram pump, Depo Testosterone ordered. Viagra prn. Follow up in 4 months to recheck testosterone level. left kidney stone, FU renal US Imagin11/26/20-[facility] --left kidney stone 5 mm?? renal US results from 10/19/22 which revealed 6 mm non obstructive left lower pole kidney stone. Review of labs: 10/19/2022 revealed PSA?0.61, total testosterone 215 which is low, and free testosterone 40.99 which is low normal. [facility] Medical History Pre-op examination Colon cancer screening Left otitis media Weight loss, abnormal Nausea Irritable bowel syndrome with diarrhea Normal routine history and physical examination Low back pain Laboratory tests ordered as part of a complete physical exam (CPE) BPH (benign prostatic hyperplasia) Poison derek dermatitis Hx of iron deficiency anemia Screening PSA (prostate specific antigen) Lumbar spondylosis Iron deficiency anemia Normal physical exam Anemia Sepsis Acute respiratory failure with hypoxia Pneumonia History of COVID-19 History of 2019 novel coronavirus disease (COVID-19) High cholesterol Arthritis Diabetes Contact dermatitis Narcotic drug use DMII (diabetes mellitus, type 2) Elevated liver transaminase level Lumbar radiculopathy, chronic Lumbar spinal stenosis Cervical radiculopathy Lumbar post-laminectomy syndrome Surgical History History of esophagogastroduodenoscopy (EGD) H/O colonoscopy History of elbow surgery History of lumbar fusion History of cholecystectomy Family History Father Liver problem Alcoholism Substance use disorder Mother No problems noted. Brother CAD (coronary artery disease) Social History Household Members: Family Housing: House Do you presently have visiting nurse or other home services: No Alcohol intake: never Patient Tobacco Use Status: Former Tobacco user Cigarette Packs Per Day: 0.5 Cigarettes Per Day: 10 Years Smoked: 10 e-Cigarette/Vaping Use: Never Used Second Hand Smoke Exposure: No service: No Current occupational status: disabled Current occupational exposures/hazards: No Cognitive needs: No (cane) Hearing needs: No Vision needs: Yes (reading glasses) Review of Systems Const All systems reviewed & are unremarkable except as noted in HPI and below Reports no additional complaints Eyes Reports no additional complaints ENT Reports no additional complaints Card Reports no additional complaints Resp Reports no additional complaints GI Reports no additional complaints Reports as per HPI Musc Reports no additional complaints Skin/Breast Reports system reviewed and no additional complaints, except as documented Neuro Reports no additional complaints Psych Reports no additional complaints Endo Reports no additional complaints Barrie/Lymph Reports no additional complaints Aller/Immun Reports no additional complaints Results Reviewed Results Reviewed: Date of Service: 10/19/22 EXAMINATION: US RETROPERITONEAL LIMITED (RENAL ONLY) CLINICAL INFORMATION: Calculus of kidney. COMPARISON: Renal ultrasound 06/09/2022. Ultrasound abdomen limited 02/24/2022. CT abdomen and pelvis 11/26/2020. X-ray KUB 09/20/2018 and 06/20/2014. FINDINGS: RIGHT KIDNEY: 11.7 x 5.8 x 6.3 cm (SAG x AP x TRV). The kidney is normal in size, contour, and echogenicity. Renal cortical thickness is normal. No calculi or focal parenchymal lesions. No hydronephrosis. LEFT KIDNEY: 11.8 x 6.8 x 5.4 cm (SAG x AP x TRV). The kidney is normal in size, contour, and echogenicity. Renal cortical thickness is normal. No focal parenchymal lesions or hydronephrosis. 6 x 3 x 6 mm lower pole not shadowing echogenicity is identified. IMPRESSION: Question 6 mm nonobstructing left lower pole renal calculus. Assessment & Plan Assessment & Plan (1) Kidney stone: Code(s): N20.0 - Calculus of kidney Category: Medical (2) Kidney stone on left side: Code(s): N20.0 - Calculus of kidney Category: Medical (3) Hypogonadism in male: Code(s): E29.1 - Testicular hypofunction Category: Medical (4) Erectile dysfunction: Code(s): N52.9 - Male erectile dysfunction, unspecified Category: Medical (5) Low testosterone: Code(s): R79.89 - Other specified abnormal findings of blood chemistry Category: Medical (6) Long-term current use of testosterone replacement therapy: Code(s): Z79.890 - Hormone replacement therapy Category: Medical 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 Will prescribe the AndroGel daily. Follow- up in 3 months with repeat labs. Orders: Orders Hematocrit 2 Months E29.1 - Testicular hypofunction, R79.89 - Other specified abnormal findings of blood chemistry, Z79.890 - Hormone replacement therapy Testosterone, Free/Total 2 Months E29.1 - Testicular hypofunction, R79.89 - Other specified abnormal findings of blood chemistry, Z79.890 - Hormone replacement therapy Medications: New testosterone 2 pumps topical DAILY 30 days 75 grams 1RF Patient Instructions: The patient had an opportunity to ask questions regarding treatment plan. The patient expressed understanding and agreement with the above treatment plan. The patient is aware they should contact our office by phone for worsening of their current condition or the appearance of new symptoms. Compliance is encouraged with any medications and followup testing that is ordered. It is a privilege to be allowed the opportunity to participate in the urologic care of your patient. If you have any questions or concerns regarding treatment for the above conditions please do not hesitate to contact me. The office telephone contact is [phone]. This note is constructed in part using voice recognition software. While every effort has been made to ensure accuracy computer systems hardware analyst errors may have been included. Yours sincerely, Arya Lopez MD Coding Level of Care Code Est Pt Level 4 (76007) Diagnoses Kidney stone N20.0 Kidney stone on left side N20.0 Hypogonadism in male E29.1 Erectile dysfunction N52.9 Low testosterone R79.89 Long-term current use of testosterone replacement therapy Z79.890
== END 2023-11-29 08:51 | disposition home or self-care (01) ==
PROVIDERS: PCP Hospitalist; Visit Provider Urology
DX: N20.0 Calculus of kidney (principal); E29.1 Testicular hypofunction; N52.9 Male erectile dysfunction, unspecified; R79.89 Other specified abnormal findings of blood chemistry; Z79.890 Hormone replacement therapy
CPT/HCPCS: 99214

== ENCOUNTER → 2023-11-29 08:08 | Outpatient (BNVA) | payer OTHER, SELFPAY | PROVIDERS: PCP Hospitalist; Visit Provider Urology | DX: E29.1 Testicular hypofunction (principal); F11.90 Opioid use, unspecified, uncomplicated; N20.0 Calculus of kidney; N52.9 Male erectile dysfunction, unspecified; R79.89 Other specified abnormal findings of blood chemistry; Z79.890 Hormone replacement therapy | CPT/HCPCS: 99212 ==

== ENCOUNTER 2023-12-23 13:28 | Emergency (ER) | payer OTHER, SELFPAY ==
--- NOTE | ~2023-12-23 | CT_ITS ---
EXAMINATION: CT ABDOMEN AND PELVIS WITHOUT CONTRAST CLINICAL INFORMATION: Right-sided flank pain COMPARISON: Renal ultrasound August 17, 2023, abdominal ultrasound February 24, [address] abdomen and pelvis February 25, 2021 TECHNIQUE: Multidetector volumetric imaging was performed from the superior aspect of the liver through the pubic symphysis. Sagittal and coronal reformatted images were obtained on the technologist's workstation. This CT examination was performed using dose optimization techniques as appropriate, variously including the following: *Automated exposure control *Adjustment of mA and/or kV according to patient size (this includes techniques or standardized protocols for targeted exams where dose is matched to indication/reason for exam; i.e. extremities or head) *Use of iterative reconstruction technique DLP: 759 mGy-cm FINDINGS: Visualized lung bases are well aerated. The liver is mildly enlarged and demonstrates diffusely decreased attenuation. The gallbladder is surgically absent. The pancreas, spleen and adrenal glands are unremarkable. Small splenules. Symmetrically sized kidneys. There is a 6 mm nonobstructing stone within the lower pole of the left kidney. No right-sided renal calculi. There is no hydronephrosis of either kidney. The stomach is decompressed. Normal caliber loops of small and large bowel. Mild colonic stool burden. Normal appendix. Normal caliber abdominal aorta demonstrating mild atherosclerotic disease. No retroperitoneal lymphadenopathy. Tiny fat-containing umbilical hernia. The bladder is decompressed and therefore not accurately characterized. The prostate gland is mildly enlarged. No gross free pelvic fluid. No inguinal lymphadenopathy. Mild diffuse degenerative changes of the spine. CT/CT abdomen pelvis wo IV con IMPRESSION: -6 mm nonobstructing left renal stone. No hydronephrosis. -Diffusely decreased liver attenuation suggesting hepatic steatosis. Correlation with liver enzymes recommended. Fleischner guidelines were followed. Electronically signed by: Apolinar Gonsalez MD 12/23/2023 02:21 PM EDT
[2023-12-23 13:31] VITALS: BP 150/94; PULSE 84; RESP 16; TEMP 36.4; O2SAT 98; BMI 28.6
--- NOTE | 2023-12-23 13:31 | ED.GENADULT ---
HPI - General Adult General Chief complaint: Back Pain/Injury Stated complaint: R flank pain Time Seen by Provider: 12/23/23 14:55 Source: patient Mode of arrival: ambulatory Limitations: no limitations History of Present Illness ED Provider: Wade CANTRELL HPI narrative: 63-year-old male history of kidney stones, BPH, diabetes, arthritis, high cholesterol, presents to ED for right flank/back pain that is worse on movement for couple of days. Patient denies any dysuria, hematuria, fever, chills, testicular pain, nausea, vomiting. Patient states pain occurred after heavy lifting of objects. Patient denies any chest pain, shortness of breath, coughing up blood. Patient denies any pleurisy, leg swelling, calf pain, recent long travel, recent surgery. Patient denies any history of blood clots. Related Data Home Medications ?Medication ?Instructions ?Recorded ?Confirmed syringe with needle 3 mL 18 x 1 #100 ea 04/26/23 11/29/23 1/2 (BD Luer-Pilo Syringe) sertraline 25 mg tablet 25 mg PO DAILY 07/05/23 11/29/23 Previous Rx's ?Medication ?Instructions ?Recorded blood-glucose meter (FreeStyle #1 ea 06/06/21 Lite Meter kit) acetaminophen 650 mg 650 mg PO Q8H PRN pain 30 days #90 11/24/22 tablet,extended release (Tylenol tabs Arthritis Pain) blood sugar diagnostic (FreeStyle #100 ea 03/23/23 Lite Strips) lancets 28 gauge (FreeStyle #100 ea 03/23/23 Lancets) insulin syringe-needle U-100 1 mL #10 ea 03/27/23 30 gauge x 5/16 (Advocate Syringes) linagliptin 5 mg tablet (Tradjenta) 5 mg PO DAILY #90 tabs 04/11/23 safety needles 25 gauge x 1 1/2 #2 ea 04/11/23 (BD Eclipse Luer-Pilo) syringe with cannula,disposabl 3 #2 ea 04/17/23 mL 18 x 1 gabapentin 300 mg capsule 300 mg PO BID pain 90 days #180 05/31/23 caps fluticasone propionate 50 1 spray intranasal Q12H #16 grams 07/02/23 mcg/actuation nasal spray,suspension (Flonase Allergy Relief) naloxone 4 mg/actuation nasal 4 mg intranasal Q2M PRN opioid 07/04/23 spray (Narcan) overdose #2 ea sildenafil 100 mg tablet 100 mg PO ONCE PRN sexual activity 07/09/23 30 days #30 tabs testosterone cypionate 200 mg/mL 200 mg IM Q2W 4 weeks #2 mL 08/27/23 intramuscular oil (Depo-Testosterone) fenofibrate 54 mg tablet 54 mg PO DAILY 90 days #90 tabs 10/05/23 omeprazole 40 mg capsule,delayed 40 mg PO DAILY #90 caps 11/08/23 release cyclobenzaprine 5 mg tablet 5 mg PO TID PRN low back pain 7 11/14/23 days #21 tabs acetaminophen 500 mg tablet 500 mg PO Q6H PRN fever or pain 11/25/23 (Tylenol Extra Strength) #14 tabs cyclobenzaprine 5 mg tablet 5 mg PO Q8H PRN pain (scale score 11/25/23 7-10) 5 days #14 tabs lidocaine 5 % topical patch 1 patch topical DAILY PRN pain #30 11/25/23 (Lidoderm) ea meloxicam 15 mg tablet 15 mg PO DAILY PRN pain 30 days 11/26/23 #30 tabs methadone 10 mg tablet 10 mg PO BID pain 30 days #60 tabs 11/26/23 testosterone 2 pump topical DAILY 30 days #75 11/29/23 grams cyclobenzaprine 10 mg tablet 10 mg PO TID PRN muscle spasm 5 12/23/23 days #15 tabs naproxen 500 mg tablet 500 mg PO BID PRN pain 7 days #14 12/23/23 tabs Allergies Allergy/AdvReac Type Severity Reaction Status Date / Time fentanyl Allergy Intermediate itching Verified 12/23/23 13:32 morphine [Amber] Allergy Intermediate itch Verified 12/23/23 13:32 Iodinated Contrast Media Allergy Mild DIFFICULTY Verified 12/23/23 13:32 [IV Dye, Iodine Containing] BREATHING,VOMITING amoxicillin [From Augmentin] AdvReac Intermediate Diarrhea Verified 12/23/23 13:32 clavulanic acid AdvReac Intermediate Diarrhea Verified 12/23/23 13:32 [From Augmentin] metformin AdvReac Intermediate stomach Verified 12/23/23 13:32 pain Review of Systems Review of Systems: Right flank pain Yes all other systems are reviewed and are negative PMFSH Past Medical History Medical History Pre-op examination Colon cancer screening Left otitis media Weight loss, abnormal Nausea Irritable bowel syndrome with diarrhea Normal routine history and physical examination Low back pain Laboratory tests ordered as part of a complete physical exam (CPE) BPH (benign prostatic hyperplasia) Poison derek dermatitis Hx of iron deficiency anemia Screening PSA (prostate specific antigen) Lumbar spondylosis Iron deficiency anemia Normal physical exam Anemia Sepsis Acute respiratory failure with hypoxia Pneumonia History of COVID-19 History of 2019 novel coronavirus disease (COVID-19) High cholesterol Arthritis Diabetes Contact dermatitis Narcotic drug use DMII (diabetes mellitus, type 2) Elevated liver transaminase level Lumbar radiculopathy, chronic Lumbar spinal stenosis Cervical radiculopathy Lumbar post-laminectomy syndrome Surgical History History of esophagogastroduodenoscopy (EGD) H/O colonoscopy History of elbow surgery History of lumbar fusion History of cholecystectomy Family History Family History Father Liver problem Alcoholism Substance use disorder Mother No problems noted. Brother CAD (coronary artery disease) Social History Social History Household Members: Family Housing: House Do you presently have visiting nurse or other home services: No Alcohol intake: never Patient Tobacco Use Status: Former Tobacco user Cigarette Packs Per Day: 0.5 Cigarettes Per Day: 10 Years Smoked: 10 e-Cigarette/Vaping Use: Never Used Second Hand Smoke Exposure: No Advance Directives: No Advance Directives Information Provided: Yes service: No Current occupational status: disabled Current occupational exposures/hazards: No Cognitive needs: No (cane) Hearing needs: No Vision needs: Yes (reading glasses) Physical Exam ED Vital Signs: Vital Signs - 24 hr 12/23/23 13:31 12/23/23 14:58 12/23/23 16:20 Temperature 97.6 F 96.9 F 96.9 F Pulse Rate 84 70 70 Respiratory Rate 16 16 16 Blood Pressure 150/94 H 137/70 137/70 Pulse Oximetry 98 95 95 Oxygen Delivery Method Room Air Room Air Room Air BMI result Body Mass Index 28.6 Const General: cooperative, healthy appearing, comfortable, no acute distress, well developed, alert, awake and Physically active Orientation/consciousness: patient oriented x3 [facility] Head: Yes normal to inspection, Yes No palpable skull fracture present, Yes normocephalic and Yes atraumatic Eyes General: appearance normal, both eyes and all related structures Neck Neck: Yes normal visual inspection, Yes full ROM, Yes no lymphadenopathy, Yes no meningeal signs, Yes trachea midline, Yes supple, No anterior neck swelling and No tender Chest Chest palpation & inspection: normal inspection of the chest and normal palpation of entire chest wall Resp Effort & Inspection: normal respiratory effort and able to speak in complete sentences Auscultation: clear to auscultation bilaterally Cardio Jugular venous distension: no JVD Heart sounds: S1 normal heart sound present and S2 normal heart sound present GI Inspection: Yes normal to inspection Palpation (GI): Soft to palpation, not firm, Tenderness to palpation present (GI) (Right-sided liver area to flank), no guarding and not rigid General: Yes CVA tenderness (Right) Back/Spine/Pelvis Back: CVA tenderness (Right) and back tenderness (Right flank) Back/spine/pelvis image: 1. Positive for tenderness on palpation. Negative crepitus, ecchymosis, deformity, or rash Skin General skin exam: no rashes or lesions noted, elasticity normal and turgor normal Neuro General: patient oriented x3, gait normal, tone normal, moves all extremities, Normal light touch and pain sensation, no meningeal signs, no focal motor deficits, CN's II-XI intact bilaterally and normal sensation to monofilament Extrem General: Yes normal to inspection, Yes full ROM and Yes capillary refill normal Psych Appearance: grossly normal, well kempt and not disheveled Course Course Course Narrative: RME performed by Cristy Arthur PA-C. Patient is a 63 year old assigned male at presenting to the emergency department with right flank pain. Patient states that over the last 2 days he has had significant right flank pain. Detailed physical exam and review of systems are deferred to the director multiple sclerosis center. Labs, imaging, and swabs ordered. Patient placed back in the waiting room pending room availability and results. Medical Decision Making Medical Decision Making MDM Narrative: 64-year-old male presents ED for right flank pain worse on movement without any trauma. Labs are normal. UA negative for blood or infection. CT scan shows hepatic steatosis and left renal stones. Patient explained worrisome signs informed to follow up with primary care provider. not suspecting renal infarct, pyelonephritis, appendicitis, PE, cholecysitits, pneumonia, liver bleed, or GI bleed. 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 12/23/23 14:02 12/23/23 14:02 Labs: Lab Results 12/23/23 12/23/23 Range/Units 14:02 15:15 WBC 5.0 (4.8-10.8) X10*3/uL RBC 4.55 L (4.60-5.80) X10*6/uL Hgb 13.3 L (14.0-18.0) g/dl Hct 40.1 L (42.0-52.0) % MCV 88.1 (80.0-98.0) fL MCH 29.2 (27.0-33.0) pg MCHC 33.2 (31.0-36.0) g/dl RDW 12.8 (11.0-16.0) % Plt Count 193 (160-400) X10*3/uL MPV 10.3 (9.4-12.4) fL Immature Gran % (Auto) 0.4 (0.0-0.4) % Neut % (Auto) 56.4 (45-73) % Lymph % (Auto) 32.7 (20-40) % Frederick % (Auto) 7.7 (2-11) % Eos % (Auto) 2.2 (0-4) % Baso % (Auto) 0.6 (0-2) % Lymph # (Auto) 1.6 (1.2-4.9) X10*3/uL Frederick # (Auto) 0.4 (0.1-1.2) X10*3/uL Eos # (Auto) 0.1 (0.0-0.4) X10*3/uL Baso # (Auto) 0.0 (0.0-0.2) X10*3/uL Abs Immat Gran (auto) 0.02 (0.00-0.03) X10*3/uL Absolute Neuts (auto) 2.8 (2.0-8.3) x10*3/uL Absolute Nucleated RBC 0.000 (0.0-0.012) X10*3/uL Nucleated RBC % (auto) 0.0 (0.0-0.2) /100WBC Sodium 142 (135-145) mmol/L Potassium 4.2 (3.3-5.1) mmol/L Chloride 105 (96-108) mmol/L Carbon Dioxide 26 (22-29) mmol/L Anion Gap 15 (12-20) BUN 17 H (9-16) mg/dL Creatinine 0.93 (0.5-1.4) mg/dL Estim Creat Clear Calc 105.9 Estimated GFR > 60 Random Glucose 115 (60-115) mg/dL Calcium 9.8 (8.4-10.2) mg/dL Magnesium 2.0 (1.6-2.6) mg/dL Total Bilirubin 0.4 (0.0-1.0) mg/dL AST 21 (5-37) U/L ALT 31 (0-40) U/L Alkaline Phosphatase 61 (39-117) U/L Total Protein 7.8 (6.5-8.0) g/dL Albumin 4.6 (3.5-5.0) g/dL Urine Color Yellow Urine Appearance Clear Urine pH 7.0 (5.0-9.0) Ur Specific [place] 1.015 (1.005-1.025) Urine Protein Negative (Neg-Trace) mg/dL Urine Glucose (UA) Negative (Negative) mg/dL Urine Ketones Negative (Negative) mg/dL Urine Blood Negative (Negative) Urine Nitrite Negative (Negative) Ur Leukocyte Esterase Negative (Negative) Influenza Type A (PCR) NEGATIVE (Negative) Influenza Type B (PCR) NEGATIVE (Negative) RSV RNA Qual (PCR) NEGATIVE (Negative) SARS-CoV-2 RNA (RT-PCR) NEGATIVE (Negative) Independent Interpretation I performed an independent interpretation of an: CT Scan Radiology Impression Discussion of test interpretation with radiology: I have reviewed the radiologist's reading. Independent Historian Clinical information obtained from an independent historian. History obtained from or confirmed by: Other (Patient) External Record Review External record reviewed: Other (Prior visits) Prescription Management I considered prescription management with: Pain Medication Discharge Plan Discharge Clinical Impression: Flank pain, Hepatic steatosis, Muscle strain Patient Disposition: Home, Self-Care Instructions: Muscle Strain (ED), Non-Alcoholic Fatty Liver Disease (ED), Flank Pain (ED) Additional Instructions: Recommend follow-up with the primary care provider. Labs urine came back normal. CT scan shows hepatic steatosis. Also have left renal stone which is not contributing to her pain. Return to the ED immediately for any abdominal pain, flank pain, back pain, urinary/bowel incontinence, fever, chills, testicular pain, blood in urine, bluish discoloration, redness, burning rash, or any other concerning symptoms. FINDINGS: Visualized lung bases are well aerated. The liver is mildly enlarged and demonstrates diffusely decreased attenuation. The gallbladder is surgically absent. The pancreas, spleen and adrenal glands are unremarkable. Small splenules. Symmetrically sized kidneys. There is a 6 mm nonobstructing stone within the lower pole of the left kidney. No right-sided renal calculi. There is no hydronephrosis of either kidney. The stomach is decompressed. Normal caliber loops of small and large bowel. Mild colonic stool burden. Normal appendix. Normal caliber abdominal aorta demonstrating mild atherosclerotic disease. No retroperitoneal lymphadenopathy. Tiny fat-containing umbilical hernia. The bladder is decompressed and therefore not accurately characterized. The prostate gland is mildly enlarged. No gross free pelvic fluid. No inguinal lymphadenopathy. Mild diffuse degenerative changes of the spine. CT/CT abdomen pelvis wo IV con IMPRESSION: -6 mm nonobstructing left renal stone. No hydronephrosis. -Diffusely decreased liver attenuation suggesting hepatic steatosis. Correlation with liver enzymes recommended. Fleischner guidelines were followed. Electronically signed by: Apolinar Gonsalez MD 12/23/2023 02:21 PM EDT Prescriptions: New naproxen 500 mg tablet 500 mg PO BID PRN (Reason: pain) 7 Days Qty: 14 0RF cyclobenzaprine 10 mg tablet 10 mg PO TID PRN (Reason: muscle spasm) 5 Days Qty: 15 0RF Rx Instructions: side effect is drowsiness. DO not take at work or while driving. No Action (DME) insulin syringe-needle U-100 [Advocate Syringes] 1 mL 30 gauge x 5/16 syringe See Rx Instructions .Route Qty: 10 1RF Rx Instructions: As directed (DME) BD Eclipse Luer-Pilo 25 gauge x 1 1/2 needle See Rx Instructions .ROUTE .MEDSUPPLY Qty: 2 5RF Rx Instructions: As directed for biweekly injection (injecting needle)- 2 per month Tradjenta 5 mg tablet 5 mg PO DAILY Qty: 90 3RF (DME) syringe with cannula,disposabl 3 mL 18 x 1 syringe See Rx Instructions .Route Qty: 2 5RF Rx Instructions: As directed for biweekly Testosterone injection- 2 per month naloxone [Narcan] 4 mg/actuation spray,non-aerosol 4 mg intranasal Q2M PRN (Reason: opioid overdose) Qty: 2 1RF Rx Instructions: spray 1 dose into ONE nostril; alternate nostrils w each dose until help arrives sildenafil 100 mg tablet 100 mg PO ONCE PRN (Reason: sexual activity) 30 Days Qty: 30 0RF Rx Instructions: administer 30 minutes to 4 hours before activity USE GOODRX COUPON ATTACHED cyclobenzaprine 5 mg tablet 5 mg PO TID PRN (Reason: low back pain) 7 Days Qty: 21 0RF acetaminophen [Tylenol Extra Strength] 500 mg tablet 500 mg PO Q6H PRN (Reason: fever or pain) Qty: 14 0RF lidocaine [Lidoderm] 5 % adhesive patch,medicated 1 patch topical DAILY MDD remove after 12 hours PRN (Reason: pain) Qty: 30 0RF Rx Instructions: leave on most painful area for up to 12 hrs cyclobenzaprine 5 mg tablet 5 mg PO Q8H PRN (Reason: pain (scale score 7-10)) 5 Days Qty: 14 0RF (DME) blood-glucose meter [FreeStyle Lite Meter] Kit See Rx Instructions .ROUTE .MEDSUPPLY Qty: 1 0RF Rx Instructions: check blood sugars daily and pern (DME) lancets [FreeStyle Lancets] 28 gauge misc See Rx Instructions .ROUTE .MEDSUPPLY Qty: 100 4RF Rx Instructions: POC testing 4 times daily (DME) FreeStyle Lite Strips Strip See Rx Instructions .ROUTE .MEDSUPPLY Qty: 100 4RF Rx Instructions: POC 4 times daily fluticasone propionate [Flonase Allergy Relief] 50 mcg/actuation spray,suspension 1 spray intranasal Q12H Qty: 16 1RF Rx Instructions: administer into each nostril fenofibrate 54 mg tablet 54 mg PO DAILY 90 Days Qty: 90 1RF acetaminophen [Tylenol Arthritis Pain] 650 mg tablet extended release 650 mg PO Q8H PRN (Reason: pain) 30 Days Qty: 90 0RF (DME) BD Luer-Pilo Syringe 3 mL 18 x 1 1/2 syringe See Rx Instructions .ROUTE .MEDSUPPLY Qty: 100 Rx Instructions: As directed gabapentin 300 mg capsule 300 mg PO BID 90 Days Qty: 180 6RF testosterone cypionate [Depo-Testosterone] 200 mg/mL oil 200 mg IM Q2W 28 Days Qty: 2 2RF omeprazole 40 mg capsule,delayed release(DR/EC) 40 mg PO DAILY Qty: 90 1RF meloxicam 15 mg tablet 15 mg PO DAILY PRN (Reason: pain) 30 Days Qty: 30 0RF methadone 10 mg tablet 10 mg PO BID MDD 2 30 Days Qty: 60 0RF Rx Instructions: Partial Fill upon patient request. sertraline 25 mg tablet 25 mg PO DAILY testosterone 20.25 mg/1.25 gram (1.62 %) gel in metered-dose pump 2 pump topical DAILY 30 Days Qty: 75 1RF Referrals: [facility] [Provider Group] (Hepatic steatosis) Stand Alone Forms: Work/School Release Interventions: ED Discharge Assessment Last Done: 12/23/23 16:20 Discharge Date/Time: 12/23/23 16:21 Print Language: Syriac
[2023-12-23 14:06] LABS: MANUAL DIFF FLAG NO
[2023-12-23 14:16] LABS: Basophils Percent Auto 0.6 % (0-2); Eosinophils Absolute Auto 0.1 X10*3/uL (0.0-0.4); Eosinophils Percent Auto 2.2 % (0-4); Hematocrit 40.1 % (42.0-52.0); Hemoglobin 13.3 g/dl (14.0-18.0); Imm Gran Abs Auto 0.02 X10*3/uL (0.00-0.03); Imm Gran Pct Auto 0.4 % (0.0-0.4); Lymphocytes Absolute Auto 1.6 X10*3/uL (1.2-4.9); Lymphocytes Percent Auto 32.7 % (20-40); Mean Corpuscular HGB Conc 33.2 g/dl (31.0-36.0); Mean Corpuscular Hemoglobin 29.2 pg (27.0-33.0); Mean Corpuscular Volume 88.1 fL (80.0-98.0); Mean Platelet Volume 10.3 fL (9.4-12.4); Monocytes Absolute Auto 0.4 X10*3/uL (0.1-1.2); Monocytes Percent Auto 7.7 % (2-11); Neutrophils Absolute Auto 2.8 x10*3/uL (2.0-8.3); Neutrophils Percent Auto 56.4 % (45-73); Platelet Count 193 X10*3/uL (160-400); Red Blood Count 4.55 X10*6/uL (4.60-5.80); Red Cell Distribution Width 12.8 % (11.0-16.0)
[2023-12-23 14:23] LABS: Alanine Aminotransferase 31 U/L (0-40); Albumin Level 4.6 g/dL (3.5-5.0); Alkaline Phosphatase 61 U/L (39-117); Anion Gap 15 (12-20); Aspartate Amino Transferase 21 U/L (5-37); Bilirubin Total 0.4 mg/dL (0.0-1.0); Blood Urea Nitrogen 17 mg/dL (9-16); Calcium 9.8 mg/dL (8.4-10.2); Carbon Dioxide 26 mmol/L (22-29); Chloride 105 mmol/L (96-108); Creatinine Clr Calc Pharmacy 105.9; Estimated Glomerular Filt Rate > 60; Glucose Random 115 mg/dL (60-115); Potassium 4.2 mmol/L (3.3-5.1); Sodium 142 mmol/L (135-145); Total Protein 7.8 g/dL (6.5-8.0)
[2023-12-23 14:44] LABS: Influenza A PCR NEGATIVE (Negative); Influenza B PCR NEGATIVE (Negative); Resp Syncy Virus RNA Qual PCR NEGATIVE (Negative); SARS COV2 PCR INHOUSE NEGATIVE (Negative)
[2023-12-23 14:58] VITALS: BP 137/70; PULSE 70; RESP 16; TEMP 36.1; O2SAT 95
[2023-12-23 15:22] LABS: Appearance Urine Clear; Color Urine Yellow; Glucose Urine UA Negative (Negative); Leukocyte Esterase Urine Negative (Negative); Nitrite Urine Negative (Negative); Specific Gravity - Urine 1.015 (1.005-1.025); Urine Blood Negative (Negative); Urine Ketones Negative (Negative); Urine Protein Negative (Neg-Trace)
[2023-12-23 16:20] VITALS: BP 137/70; PULSE 70; RESP 16; TEMP 36.1; O2SAT 95
== END 2023-12-23 16:21 | disposition home or self-care (01) ==
PROVIDERS: Physician Assistant; Physician Assistant Medical; Emergency Provider Emergency Medicine; PCP Nurse Practitioner Family
DX: K76.0 Fatty (change of) liver, not elsewhere classified (principal); M54.50 Low back pain, unspecified; R10.2 Pelvic and perineal pain; E11.9 Type 2 diabetes mellitus without complications; Z79.4 Long term (current) use of insulin; Z79.899 Other long term (current) drug therapy; Z03.818 Encounter for observation for suspected exposure to other biological agents ruled out
CPT/HCPCS: 0241U; 74176; 80053; 81003; 83735; 85025; 99284

== ENCOUNTER 2023-12-24 07:56 | Outpatient (AMB) | payer OTHER, SELFPAY ==
--- NOTE | 2023-12-24 08:28 | A.OFFVIS_ITS ---
Vital Signs 12/24/23 08:34 Height 6 ft 2 in Weight 222 lb BMI 28.5 BP 145/81 H Blood Pressure Location Rt brachial Position Sitting Pulse 81 Pulse Source Pulse Oximeter Pulse Oximetry (%) 98 Oxygen Delivery Method Room Air Intake Visit Reasons: Pill Count Intake Note: Sridhar comes in today for a pill count to methadone, patient should have 44 tablets and presents with 45 tablets which he last took today 12/24/23 at 8am. Pain today 10/26. Dispensing Audiologist Required: No Accompanied by: Self / Same As Patient Allergies fentanyl Allergy (Intermediate, Verified 12/24/23 08:35) itching morphine [Amber] Allergy (Intermediate, Verified 12/24/23 08:35) itch Iodinated Contrast Media [IV Dye, Iodine Containing] Allergy (Mild, Verified 12/24/23 08:35) DIFFICULTY BREATHING,VOMITING amoxicillin [From Augmentin] Adverse Reaction (Intermediate, Verified 12/24/23 08:35) Diarrhea clavulanic acid [From Augmentin] Adverse Reaction (Intermediate, Verified 12/24/23 08:35) Diarrhea metformin Adverse Reaction (Intermediate, Verified 12/24/23 08:35) stomach pain HPI Comments Details: Patient presents today for a methadone pill count. He is supposed to have #44pills, in his possession has #45 pills. This demonstrates a responsible attitude in regards to the opioid regimen. Patient reports mild to moderate analgesia with current dose with no noted side effects. Patient reports he went to [facility] yesterday for right flank/back pain aggravated by heavy lifting, pulling and movements. CT scan showed 6 mm nonobstructing left renal stone, no hydronephrosis and hepatic steatosis. Patient continues to endorse low back pain with left leg radicular pain due to spinal stenosis. He was previously sent for Neurosurgical evaluation with [facility] but had multiple no shows, including 12/03/23. Patient reports he really wants to avoid back surgery. Denies any fever, sore throat, shortness of breaths, constipation, sedation, nausea, dizziness, urinary retention, bladder or bowel dysfunction or saddle anesthesia. [facility] Medical History Pre-op examination Colon cancer screening Left otitis media Weight loss, abnormal Nausea Irritable bowel syndrome with diarrhea Normal routine history and physical examination Low back pain Laboratory tests ordered as part of a complete physical exam (CPE) BPH (benign prostatic hyperplasia) Poison derek dermatitis Hx of iron deficiency anemia Screening PSA (prostate specific antigen) Lumbar spondylosis Iron deficiency anemia Normal physical exam Anemia Sepsis Acute respiratory failure with hypoxia Pneumonia History of COVID-19 History of 2019 novel coronavirus disease (COVID-19) High cholesterol Arthritis Diabetes Contact dermatitis Narcotic drug use DMII (diabetes mellitus, type 2) Elevated liver transaminase level Lumbar radiculopathy, chronic Lumbar spinal stenosis Cervical radiculopathy Lumbar post-laminectomy syndrome Surgical History History of esophagogastroduodenoscopy (EGD) H/O colonoscopy History of elbow surgery History of lumbar fusion History of cholecystectomy Family History Father Liver problem Alcoholism Substance use disorder Mother No problems noted. Brother CAD (coronary artery disease) Social History Household Members: Family Housing: House Do you presently have visiting nurse or other home services: No Alcohol intake: never Patient Tobacco Use Status: Former Tobacco user Cigarette Packs Per Day: 0.5 Cigarettes Per Day: 10 Years Smoked: 10 e-Cigarette/Vaping Use: Never Used Second Hand Smoke Exposure: No service: No Current occupational status: disabled Current occupational exposures/hazards: No Cognitive needs: No (cane) Hearing needs: No Vision needs: Yes (reading glasses) Review of Systems Const All systems reviewed & are unremarkable except as noted in HPI and below Physical Exam Vital Signs: Last Vital Signs Pulse 81 12/24/23 08:34 BP 145/81 H 12/24/23 08:34 Pulse Ox 98 12/24/23 08:34 Oxygen Delivery Method Room Air 12/24/23 08:34 BMI result Body Mass Index 28.5 On exam today: Alert and oriented. No acute distress. Mood and affect appropriate. Follows and participates in conversation appropriately. Respiratory effort is unlabored. No cough. Able to transition from sit to stand unassisted. Able to stand and walk on toes and heels but reports occasional unsteadiness on the left due to pain. GI Inspection: Yes normal to inspection Palpation (GI): Soft to palpation, Tenderness to palpation present (GI) in the RLQ and no guarding Back/Spine/Pelvis Other: Limited lumbar ROM due to pain. Lumbar extension and flexion forward causes moderate pain. Positive SLR with dorsiflexion on the left in L5-S1 distribution. Valsalva maneuver is negative. Cervical Spine: cervical muscular tenderness, pain with cervical ROM and No Cervical spine tenderness Thoracic/Lumbar Spine: thoracic and lumbar spine normal to inspection, Thoracic/ lumbar spine scar(s), Lasegue's sign positive on the left and localized, pain with thoraco-lumbar ROM, paraspinal muscle tenderness on the left greater than right, thoraco-lumbar ROM limited, No thoracic spinal tenderness and lumbar spinal tenderness (L3-S1) Pelvis: buttock tenderness on the left and sciatic notch tenderness on the left Sacroiliac joints: bilaterally tender to palpation Extrem General: Yes capillary refill normal, Yes no clubbing, cyanosis or edema and Yes no calf tenderness Psych Appearance: grossly normal and well kempt Mental Status: mental status grossly normal Speech and movement: Normal speech and movement present and Clear speech present Affect: normal affect Attitude: cooperative Thought process: Normal thought process present Thought content: Normal thought content present, suicidality (none), no hallucinations and No Depressive thoughts present Insight: Good insight present (Psych) Judgement: Good judgement present (Psych) Results Reviewed Results Reviewed: XR LUMBOSACRAL SPINE 11/25/23 CLINICAL INFORMATION: Back pain. Injury. COMPARISON: Lumbar spine x-rays of 10/13/2021 FINDINGS: There are 5 lumbar-type nonrib-bearing vertebrae. Minimal anterior wedge compression of L1 is a stable finding. Remainder of the vertebral body heights are maintained. Stable mild grade 1 anterolisthesis of L4 over L5. Intervertebral well incorporated disc spacer is redemonstrated at L5-S1. Facet arthropathy at L4-5 and L5-S1. Multilevel small anterolateral endplate osteophytes are noted. No suspicious lytic or blastic osseous lesions. Postcholecystectomy clips in the right upper abdominal quadrant. Limited evaluation of the sacroiliac joints are unremarkable. IMPRESSION: No evidence of acute compression fracture or traumatic subluxation. Essentially, no significant interval change is noted in the appearance of the lumbar spine compared to previous x-ray of 10/13/2021. MR LUMBAR SPINE WITHOUT CONTRAST 01/30/23 CLINICAL INFORMATION: Low back pain. Bilateral leg pain, worse on the left side. Prior surgery. COMPARISON: MRI dated 12/08/2019. TECHNIQUE: Multiplanar, multisequence imaging was obtained. FINDINGS: VERTEBRAL BODIES AND PARASPINAL STRUCTURES: An interbody prosthesis is again visible at the L5-S1 level with a solid arthrodesis. Chronic fatty marrow degenerative endplate changes again visible at this level as well. The paraspinal soft tissues appear normal. There are [id number] degenerative changes of the sacroiliac joints. There is edema in the pedicles and posterior elements at the L4-L5 level which was not present on prior imaging and may be stress-related in etiology or reactive to severity of facet arthrosis. No compression fractures are seen. A mild anterolisthesis is again evident at the L4-L5 level as well. CONUS MEDULLARIS AND CAUDA EQUINE: The distal cord, conus tip, and cauda equina nerve roots appear normal. SPINAL LEVELS: L1-L2: No central canal stenosis or foraminal narrowing. No significant disc pathology. L2-L3: Well-hydrated normal appearance of the disc without central canal stenosis or foraminal narrowing. L3-L4: Slight posterior subluxation and broad-based disc bulge with a shallow central disc protrusion and hypertrophic facet arthropathy. Disc protrusion is slightly decreased in size compared to prior imaging with diminished mass effect upon the thecal sac. Mild central canal stenosis and mild bilateral foraminal narrowing. L4-L5: Mild anterolisthesis and broad-based disc bulge noted. Previous central disc protrusion has resorbed. Infolding and thickening of the ligamentum flavum with progressed advanced facet arthropathy contributes to moderate central canal stenosis with mild foraminal narrowing. Marrow edema in the pedicles and posterior elements. L5-S1: Post interbody fusion changes with a left-sided laminectomy defect. No central canal stenosis. Mild left foraminal narrowing is stable IMPRESSION: 1. Previous central disc protrusion at the L4-L5 level has resorbed. Stable mild anterolisthesis and slightly worsened advanced facet arthropathy with moderate central canal stenosis and mild foraminal narrowing. New edema in the pedicles and posterior elements at this level, presumably reactive/stress-related in etiology. 2. Status post interbody fusion with a solid arthrodesis at the L5-S1 level, as on prior imaging. 3. Shallow central disc protrusion at the L3-L4 level is slightly decreased in size with decreased mass effect upon the thecal sac. Mild central canal stenosis and foraminal narrowing. CT ABDOMEN AND PELVIS WITHOUT CONTRAST 12/23/23 CLINICAL INFORMATION: Right-sided flank pain Mild diffuse degenerative changes of the spine. IMPRESSION: -6 mm nonobstructing left renal stone. No hydronephrosis. -Diffusely decreased liver attenuation suggesting hepatic steatosis. Correlation with liver enzymes recommended. 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 There is no evidence of misuse, abuse or diversion at this time. [facility] reviewed. Script sent for methadone 10 mg BID for 30 days with advanced date of 01/14/24. Patient is aware of monitoring for side effects. Encouraged adequate hydration and daily fiber intake, and physical activity as tolerated. Chronic left sided radiculopathy: patient is not interested in inverventional treatments, including another attempt with Caudal ERNST under sedation and was numerously no show to [facility] for surgical evaluation. Recent ER visit notes were reviewed with patient. Patient is aware to call if pain worsens or if he develops any red flag symptoms to seek emergency care. Patient denies any cauda equina syndrome symptoms at this time. Patient encouraged to avoid heavy lifting or pulling. All questions were answered and the patient is in agreement with the plan. Follow up in 4 weeks for a pill count and sooner if needed. Medications: Refilled methadone Partial Fill upon patient request. 10 mg PO BID 30 days 60 tabs 0RF pain MDD 2 M47.816 - Spondylosis without myelopathy or radiculopathy, lumbar region, M48.061 - Spinal stenosis, lumbar region without neurogenic claudication, M54.16 - Radiculopathy, lumbar region, M96.1 - Postlaminectomy syndrome, not elsewhere classified Coding Level of Care Code Est Pt Level 4 (32543) Complex EM visit Add On G2211 Diagnoses Lumbar spinal stenosis M48.061 Lumbar radiculopathy, chronic M54.16 Lumbar post-laminectomy syndrome M96.1 Opioid contract exists Z79.891 Chronic pain syndrome G89.4 Lumbar spondylosis M47.816
[2023-12-24 08:34] VITALS: BP 145/81; PULSE 81; O2SAT 98; BMI 28.5
== END 2023-12-24 08:48 | disposition home or self-care (01) ==
PROVIDERS: PCP Hospitalist; Visit Provider Nurse Practitioner Family
DX: M48.061 Spinal stenosis, lumbar region without neurogenic claudication (principal); M54.16 Radiculopathy, lumbar region; M96.1 Postlaminectomy syndrome, not elsewhere classified; Z79.891 Long term (current) use of opiate analgesic; G89.4 Chronic pain syndrome; M47.816 Spondylosis without myelopathy or radiculopathy, lumbar region
CPT/HCPCS: 99214; G2211

== ENCOUNTER → 2023-12-24 07:56 | Outpatient (BNVA) | payer OTHER, SELFPAY | PROVIDERS: PCP Hospitalist; Visit Provider Nurse Practitioner Family | DX: M48.061 Spinal stenosis, lumbar region without neurogenic claudication (principal); M54.16 Radiculopathy, lumbar region; M47.816 Spondylosis without myelopathy or radiculopathy, lumbar region; G89.4 Chronic pain syndrome; M96.1 Postlaminectomy syndrome, not elsewhere classified; Z79.891 Long term (current) use of opiate analgesic; Z51.81 Encounter for therapeutic drug level monitoring | CPT/HCPCS: 99212 ==

== ENCOUNTER 2024-01-16 08:13 | Outpatient (AMB) | payer OTHER, SELFPAY ==
--- NOTE | 2024-01-16 08:20 | MHC.PC.OV ---
Vital Signs 01/16/24 08:28 01/16/24 08:37 Height 6 ft 2 in Weight 229 lb 2 oz BMI 29.4 BP 142/68 H 110/76 Blood Pressure Location Rt brachial Rt brachial Position Sitting Sitting Respiration 16 Pulse 97 Pulse Source Pulse Oximeter Temp 98.2 F Temp Source Oral Pulse Oximetry (%) 97 Oxygen Delivery Method Room Air Intake Visit Reasons: DM HLD Intake Note: patient here for follow on DM, and HLD Pool Installer Required: No Allergies fentanyl Allergy (Intermediate, Verified 01/16/24 08:23) itching morphine [Amber] Allergy (Intermediate, Verified 01/16/24 08:23) itch Iodinated Contrast Media [IV Dye, Iodine Containing] Allergy (Mild, Verified 01/16/24 08:23) DIFFICULTY BREATHING,VOMITING amoxicillin [From Augmentin] Adverse Reaction (Intermediate, Verified 01/16/24 08:23) Diarrhea clavulanic acid [From Augmentin] Adverse Reaction (Intermediate, Verified 01/16/24 08:23) Diarrhea metformin Adverse Reaction (Intermediate, Verified 01/16/24 08:23) stomach pain Tobacco use date assessed: 01/16/24 Dental Screening Dental Screen Date: 01/16/24 Did you have a dental visit in the last 12 months?: Yes Did you have a dental problem in the last 6 months where you did not have access to dental care?: No Was dental information given to patient?: Patient has dentist HPI HPI Comments History of Present Illness Details 63-year-old male presents for diabetes and hyperlipidemia follow-up He admits to taking his medications as prescribed without adverse reactions He notes that he has been making healthy lifestyle changes He offers no complaints and denies acute symptoms at this time He was evaluated at [facility] for right flank pain. Labs and urine were normal. CT scan revealed hepatic steatosis. He notes that the pain has completely subsided. [facility] Medical History Pre-op examination Colon cancer screening Left otitis media Weight loss, abnormal Nausea Irritable bowel syndrome with diarrhea Normal routine history and physical examination Low back pain Laboratory tests ordered as part of a complete physical exam (CPE) BPH (benign prostatic hyperplasia) Poison derek dermatitis Hx of iron deficiency anemia Screening PSA (prostate specific antigen) Lumbar spondylosis Iron deficiency anemia Normal physical exam Anemia Sepsis Acute respiratory failure with hypoxia Pneumonia History of COVID-19 History of 2019 novel coronavirus disease (COVID-19) High cholesterol Arthritis Diabetes Contact dermatitis Narcotic drug use DMII (diabetes mellitus, type 2) Elevated liver transaminase level Lumbar radiculopathy, chronic Lumbar spinal stenosis Cervical radiculopathy Lumbar post-laminectomy syndrome Surgical History History of esophagogastroduodenoscopy (EGD) H/O colonoscopy History of elbow surgery History of lumbar fusion History of cholecystectomy Family History Father Liver problem Alcoholism Substance use disorder Mother No problems noted. Brother CAD (coronary artery disease) Social History Household Members: Family Housing: House Do you presently have visiting nurse or other home services: No Alcohol intake: never Patient Tobacco Use Status: Former Tobacco user Cigarette Packs Per Day: 0.5 Cigarettes Per Day: 10 Years Smoked: 10 e-Cigarette/Vaping Use: Never Used Second Hand Smoke Exposure: No service: No Current occupational status: disabled Current occupational exposures/hazards: No Cognitive needs: No (cane) Hearing needs: No Vision needs: Yes (reading glasses) Questionnaire PHQ-9 Over the last 2 weeks, how often have you been bothered by any of the following problems? 1. Little interest or pleasure in doing things: several days 2. Feeling down, depressed, or hopeless: several days 3. Trouble falling or staying asleep, or sleeping too much: several days 4. Feeling tired or having little energy: several days 5. Poor appetite or overeating: not at all 6. Feeling bad about yourself - or that you are a failure or have let yourself or your family down: several days 7. Trouble concentrating on things, such as reading the newspaper or watching television: several days 8. Moving or speaking so slowly that other people could have noticed. Or the opposite - being so fidgety or restless that you have been moving around a lot more than usual: not at all 9. Thoughts that you would be better off or of hurting yourself in some way: not at all Total score: 6 Depression Screening Interpretation: Positive Depression Screening Follow-up: Existing condition and In treatment Depression Screening Done: Yes Source: Developed by Drs. Enrico Chiang, Kassandra Neville, Farhat Pandey and colleagues, with an educational mann from [employer]. Thrive Questionnaire Date Thrive assessed: 01/16/24 I am a: Patient What is your living situation today?: I have a steady place to live Within the past 12 months, did the food you bought not last and you didn't have the money to get more?: I choose not to answer this question Within the past 12 months, did you worry whether your food would run out before you got money to buy more?: I choose not to answer this question Do you have trouble paying for medicines?: No Do you have trouble getting transportation to medical appointments?: Yes Do you have trouble paying your heating and electricity bill?: I choose not to answer this question Do you have trouble taking care of your child, family member or friend?: I choose not to answer this question Do you have trouble with day-to-day activities such as bathing, preparing meals, shopping, managing finances, etc.?: I choose not to answer this question Are you currently unemployed and looking for a job?: No Are you interested in more education?: No Please select the resources that you would like help with: Utilities Currently or been in a relationship where the following occur: No concerns reported THRIVE Score: 1 AUDIT C Alcohol Use Questionnaire (AUDIT-C) 1. How often do you have a drink containing alcohol?: Never Total Score: 0 NICOLE-7 AMB Questionnaire NICOLE-7 Date NICOLE - 7 assessed: 01/16/24 Feeling nervous, anxious, or on edge: 1 = Several days Not being able to stop or control worryin = Several days Worrying too much about different things: 1 = Several days Trouble relaxin = Several days Being so restless that it is hard to sit still: 1 = Several days Becoming easily annoyed or irritable: 1 = Several days Feeling afraid as if something awful might happen: 1 = Several days Total NICOLE-7 score (0-4 normal; 5-9 mild; 10-14 moderate; 15-21 severe): 7 Source: Developed by Kassandra Yang Kurt Kroenke and colleagues, with an educational mann from [employer]. NICOLE-7 Assessment Billing NICOLE-7 Assessment Tool: NICOLE-7 Assessment 21325 Review of Systems Const Details: Const Denies chills, Denies fatigue, Denies fever(s), Denies headache(s) and Denies weakness ENT Denies dizziness and Denies headache(s) Card Denies chest pain, Denies lightheadedness, Denies dyspnea and Denies other (Palpitations) Resp Denies cough, Denies dyspnea, Denies wheezing and Denies other ( shortness of breath) GI Denies abdominal pain, Denies melena, Denies hematochezia, Denies change in bowel habits, Denies dyspepsia and Denies nausea Denies hematuria and Denies dysuria Musc Denies abnormal gait, Denies myalgias, Denies arthralgias, Denies numbness and Denies tingling Skin/Breast Denies rash, Denies unusual bruising and Denies wounds Neuro Denies abnormal gait, Denies dizziness, Denies headache(s), Denies memory loss, Denies numbness, Denies Sensory deficit (Neuro), Denies tingling and Denies weakness Psych Denies anxiety, Denies depression, Denies memory loss Endo Denies cold intolerance, Denies fatigue, Denies heat intolerance, Denies polydipsia and Denies polyuria Aller/Immun Denies wheezing Physical exam (Primary Care) Tobacco/Smoking Status: Tobacco use Status Tobacco use date assessed 10/05/23 01/16/24 08:23 Patient Tobacco Use Status Former Tobacco user 01/16/24 08:23 e-Cigarette/Vaping Use Never Used 01/16/24 08:23 Depression Screening Interpretation: Positive Depression Screening Follow-up: Existing condition and In treatment Thrive Assessment: Date of Thrive Assessment Date Thrive assessed 10/05/23 01/16/24 08:23 Currently or been in a relationship where the following occur: No concerns reported Const Other: General: no acute distress and well developed Nutritional Appearance: well nourished Orientation/consciousness: patient oriented x3 HENMT Head: Yes normocephalic and Yes atraumatic Eyes General: appearance normal, both eyes and all related structures Pupils: Equal, round and reactive pupils present EOM: EOMs intact bilaterally Resp Effort & Inspection: normal respiratory effort Auscultation: clear to auscultation bilaterally Cardio Rate: regular rate Rhythm: regular rhythm Heart sounds: S1 normal heart sound present, S2 normal heart sound present, no gallops, no murmurs and no rubs GI Palpation (GI): No Abdominal aortic bruit present, Soft to palpation, nontender, No hepatosplenomegaly present and No Rebound tenderness present Auscultation: normal bowel sounds General: Yes no CVA tenderness Back/Spine/Pelvis Back: no CVA tenderness Cervical Spine: cervical ROM normal and No Cervical spine tenderness Thoracic/Lumbar Spine: thoraco-lumbar ROM normal, No pain with thoraco-lumbar ROM, No thoracic spinal tenderness and No lumbar spinal tenderness Extrem General: Yes normal to inspection, No edema and No calf tenderness Skin General: warm and dry. Normal skin color. Normal skin turgor Neuro General: patient oriented x3, gait normal and no focal neuro deficit Cranial nerves: Yes Equal, round and reactive pupils present Cognition (Neuro): normal cognition Gait exam (Neuro): Normal gait present Sensory Exam: No Sensory deficit (Neuro) Psych Appearance: grossly normal Affect: normal affect Attitude: cooperative Thought process: Normal thought process present Results AMB Hemoglobin A1c AMB Hemoglobin A1c 6.8 % Last Edit by Melvi Lynne MA on 01/16/24 08:54 Coding Level of Care Code Est Pt Level 3 (64148) Diagnoses DMII (diabetes mellitus, type 2) E11.9 Hyperlipidemia E78.5 Additional Codes NICOLE-7 Assessment Billing - NICOLE-7 Assessment Tool: NICOLE-7 Assessment 87610 ([id number]) Assessment & Plan Assessment & Plan (1) DMII (diabetes mellitus, type 2): Code(s): E11.9 - Type 2 diabetes mellitus without complications Category: Medical Plan: A1c today 6.8%, within goal of less than 7.0%. Previous A1c was 7.2% Continue to take Tradjenta as prescribed ADA diet and routine exercise encouraged Follow-up in 3 months or sooner with symptoms or concerns Verbalized understanding and agreed with the treatment plan (2) Hyperlipidemia: Code(s): E78.5 - Hyperlipidemia, unspecified Category: Medical Plan: He did not get lipid panel blood work done as planned for this visit. Advised to continue current treatment regimen. Encouraged to fast for 10-12 hours, may drink water only, and get lipid panel blood work done as soon as he can. Will review results and make changes as needed. Verbalized understanding and agreed with the plan Orders: Orders AMB Hemoglobin A1c Today Z13.9 - Encounter for screening, unspecified Medications: Refilled linagliptin (Tradjenta) 5 mg PO DAILY 90 tabs 1RF
[2024-01-16 08:28] VITALS: BP 142/68; PULSE 97; RESP 16; TEMP 36.8; O2SAT 97; BMI 29.4
[2024-01-16 08:37] VITALS: BP 110/76
== END 2024-01-16 08:50 | disposition home or self-care (01) ==
LOC: HO.HMCFM 08:14
PROVIDERS: PCP Nurse Practitioner Family; Visit Provider Nurse Practitioner Family
DX: E11.9 Type 2 diabetes mellitus without complications (principal); E78.5 Hyperlipidemia, unspecified; Z13.9 Encounter for screening, unspecified

== ENCOUNTER → 2024-01-16 08:13 | Outpatient (BNVA) | payer OTHER, SELFPAY | PROVIDERS: PCP Hospitalist; Visit Provider Nurse Practitioner Family | DX: E11.9 Type 2 diabetes mellitus without complications (principal); E78.5 Hyperlipidemia, unspecified | CPT/HCPCS: 83036; 96127; 99212 ==

== ENCOUNTER 2024-02-01 08:52 | Outpatient (AMB) | payer OTHER, SELFPAY ==
--- NOTE | 2024-02-01 08:57 | MHC.OFFVIS ---
Vital Signs 02/01/24 09:03 Height 6 ft 2 in Weight 225 lb 8 oz BMI 28.9 BP 156/82 H Blood Pressure Location Rt brachial Position Sitting Pulse 86 Pulse Oximetry (%) 98 Oxygen Delivery Method Room Air Intake Visit Reasons: PILL COUNT Intake Note: Sridhar comes in today for a pill count to methadone, patient should have 26 tablets and presents with 30 tablets which he last took today 02/01/24 at 8 am. Pain today 10/26 Sridhar also wanted to let the office know that he will be going out of town to [place] the week of to visit his daughter. Correspondence Representative Required: No Accompanied by: Self / Same As Patient Allergies fentanyl Allergy (Intermediate, Verified 02/01/24 09:03) itching morphine [Amber] Allergy (Intermediate, Verified 02/01/24 09:03) itch Iodinated Contrast Media [IV Dye, Iodine Containing] Allergy (Mild, Verified 02/01/24 09:03) DIFFICULTY BREATHING,VOMITING amoxicillin [From Augmentin] Adverse Reaction (Intermediate, Verified 02/01/24 09:03) Diarrhea clavulanic acid [From Augmentin] Adverse Reaction (Intermediate, Verified 02/01/24 09:03) Diarrhea metformin Adverse Reaction (Intermediate, Verified 02/01/24 09:03) stomach pain HPI Comments Details: Patient presents today for a methadone pill count. He is supposed to have #26 pills, in his possession has #30 pills. This demonstrates a responsible attitude in regards to the opioid regimen. Patient reports mild to moderate analgesia with current dose with no noted side effects. Patient continues to endorse low back pain with left leg radicular pain due to spinal stenosis but states it has been mild lately. He avoids heavy lifting, twisting, bending or strenuous exercises and finds this has been reducing his symptoms. He was previously sent for Neurosurgical evaluation with [facility] but had multiple no shows, including 12/03/23. Patient hesitant towards back surgery or injections. Denies any fever, sore throat, shortness of breaths, constipation, sedation, nausea, dizziness, urinary retention, bladder or bowel dysfunction or saddle anesthesia. [facility] Medical History Pre-op examination Colon cancer screening Left otitis media Weight loss, abnormal Nausea Irritable bowel syndrome with diarrhea Normal routine history and physical examination Low back pain Laboratory tests ordered as part of a complete physical exam (CPE) BPH (benign prostatic hyperplasia) Poison derek dermatitis Hx of iron deficiency anemia Screening PSA (prostate specific antigen) Lumbar spondylosis Iron deficiency anemia Normal physical exam Anemia Sepsis Acute respiratory failure with hypoxia Pneumonia History of COVID-19 History of 2019 novel coronavirus disease (COVID-19) High cholesterol Arthritis Diabetes Contact dermatitis Narcotic drug use DMII (diabetes mellitus, type 2) Elevated liver transaminase level Lumbar radiculopathy, chronic Lumbar spinal stenosis Cervical radiculopathy Lumbar post-laminectomy syndrome Surgical History History of esophagogastroduodenoscopy (EGD) H/O colonoscopy History of elbow surgery History of lumbar fusion History of cholecystectomy Family History Father Liver problem Alcoholism Substance use disorder Mother No problems noted. Brother CAD (coronary artery disease) Social History Household Members: Family Housing: House Do you presently have visiting nurse or other home services: No Alcohol intake: never Patient Tobacco Use Status: Former Tobacco user Cigarette Packs Per Day: 0.5 Cigarettes Per Day: 10 Years Smoked: 10 e-Cigarette/Vaping Use: Never Used Second Hand Smoke Exposure: No service: No Current occupational status: disabled Current occupational exposures/hazards: No Cognitive needs: No (cane) Hearing needs: No Vision needs: Yes (reading glasses) Review of Systems Const All systems reviewed & are unremarkable except as noted in HPI and below Physical Exam Vital Signs: Last Vital Signs Pulse 86 02/01/24 09:03 BP 156/82 H 02/01/24 09:03 Pulse Ox 98 02/01/24 09:03 Oxygen Delivery Method Room Air 02/01/24 09:03 BMI result Body Mass Index 28.9 On exam today: Alert and oriented. Mood and affect appropriate. Follows and participates in conversation appropriately. Respiratory effort is unlabored. No cough. Able to transition from sit to stand unassisted. Able to stand and walk on toes and heels but reports occasional unsteadiness on the left due to pain. General: Yes no CVA tenderness Back/Spine/Pelvis Other: Limited lumbar ROM due to pain. Lumbar extension and flexion forward causes moderate pain. Positive SLR with dorsiflexion on the left in L5-S1 distribution. Back: no CVA tenderness Cervical Spine: cervical muscular tenderness, pain with cervical ROM and No Cervical spine tenderness Thoracic/Lumbar Spine: thoracic and lumbar spine normal to inspection, Thoracic/lumbar spine scar(s), Lasegue's sign positive on the left and localized, pain with thoraco-lumbar ROM, paraspinal muscle tenderness on the left greater than right, thoraco-lumbar ROM limited, No thoracic spinal tenderness and lumbar spinal tenderness (L3-S1) Pelvis: buttock tenderness on the left and sciatic notch tenderness on the left Sacroiliac joints: bilaterally tender to palpation Extrem General: Yes capillary refill normal, Yes no clubbing, cyanosis or edema and Yes no calf tenderness Psych Appearance: grossly normal and well kempt Mental Status: mental status grossly normal Speech and movement: Normal speech and movement present and Clear speech present Affect: normal affect Attitude: cooperative Thought process: Normal thought process present Thought content: Normal thought content present, suicidality (none), no hallucinations and No Depressive thoughts present Insight: Good insight present (Psych) Judgement: Good judgement present (Psych) Results Reviewed Results Reviewed: XR LUMBOSACRAL SPINE 11/25/23 CLINICAL INFORMATION: Back pain. Injury. COMPARISON: Lumbar spine x-rays of 10/13/2021 FINDINGS: There are 5 lumbar-type nonrib-bearing vertebrae. Minimal anterior wedge compression of L1 is a stable finding. Remainder of the vertebral body heights are maintained. Stable mild grade 1 anterolisthesis of L4 over L5. Intervertebral well incorporated disc spacer is redemonstrated at L5-S1. Facet arthropathy at L4-5 and L5-S1. Multilevel small anterolateral endplate osteophytes are noted. No suspicious lytic or blastic osseous lesions. Postcholecystectomy clips in the right upper abdominal quadrant. Limited evaluation of the sacroiliac joints are unremarkable. IMPRESSION: No evidence of acute compression fracture or traumatic subluxation. Essentially, no significant interval change is noted in the appearance of the lumbar spine compared to previous x-ray of 10/13/2021. MR LUMBAR SPINE WITHOUT CONTRAST 01/30/23 CLINICAL INFORMATION: Low back pain. Bilateral leg pain, worse on the left side. Prior surgery. COMPARISON: MRI dated 12/08/2019. TECHNIQUE: Multiplanar, multisequence imaging was obtained. FINDINGS: VERTEBRAL BODIES AND PARASPINAL STRUCTURES: An interbody prosthesis is again visible at the L5-S1 level with a solid arthrodesis. Chronic fatty marrow degenerative endplate changes again visible at this level as well. The paraspinal soft tissues appear normal. There are [id number] degenerative changes of the sacroiliac joints. There is edema in the pedicles and posterior elements at the L4-L5 level which was not present on prior imaging and may be stress-related in etiology or reactive to severity of facet arthrosis. No compression fractures are seen. A mild anterolisthesis is again evident at the L4-L5 level as well. CONUS MEDULLARIS AND CAUDA EQUINE: The distal cord, conus tip, and cauda equina nerve roots appear normal. SPINAL LEVELS: L1-L2: No central canal stenosis or foraminal narrowing. No significant disc pathology. L2-L3: Well-hydrated normal appearance of the disc without central canal stenosis or foraminal narrowing. L3-L4: Slight posterior subluxation and broad-based disc bulge with a shallow central disc protrusion and hypertrophic facet arthropathy. Disc protrusion is slightly decreased in size compared to prior imaging with diminished mass effect upon the thecal sac. Mild central canal stenosis and mild bilateral foraminal narrowing. L4-L5: Mild anterolisthesis and broad-based disc bulge noted. Previous central disc protrusion has resorbed. Infolding and thickening of the ligamentum flavum with progressed advanced facet arthropathy contributes to moderate central canal stenosis with mild foraminal narrowing. Marrow edema in the pedicles and posterior elements. L5-S1: Post interbody fusion changes with a left-sided laminectomy defect. No central canal stenosis. Mild left foraminal narrowing is stable IMPRESSION: 1. Previous central disc protrusion at the L4-L5 level has resorbed. Stable mild anterolisthesis and slightly worsened advanced facet arthropathy with moderate central canal stenosis and mild foraminal narrowing. New edema in the pedicles and posterior elements at this level, presumably reactive/stress-related in etiology. 2. Status post interbody fusion with a solid arthrodesis at the L5-S1 level, as on prior imaging. 3. Shallow central disc protrusion at the L3-L4 level is slightly decreased in size with decreased mass effect upon the thecal sac. Mild central canal stenosis and foraminal narrowing. CT ABDOMEN AND PELVIS WITHOUT CONTRAST 12/23/23 CLINICAL INFORMATION: Right-sided flank pain Mild diffuse degenerative changes of the spine. IMPRESSION: -6 mm nonobstructing left renal stone. No hydronephrosis. -Diffusely decreased liver attenuation suggesting hepatic steatosis. Correlation with liver enzymes recommended. Assessment & Plan Assessment & Plan (1) Lumbar spinal stenosis: Code(s): M48.061 - Spinal stenosis, lumbar region without neurogenic claudication Category: Medical (2) Lumbar radiculopathy, chronic: Code(s): M54.16 - Radiculopathy, lumbar region Category: Medical (3) Lumbar post-laminectomy syndrome: Code(s): M96.1 - Postlaminectomy syndrome, not elsewhere classified Category: Medical (4) Opioid contract exists: Code(s): Z79.891 - USP (current) use of opiate analgesic Category: Medical (5) Chronic pain syndrome: Code(s): G89.4 - Chronic pain syndrome Category: Medical (6) Lumbar spondylosis: Code(s): M47.816 - Spondylosis without myelopathy or radiculopathy, lumbar region Category: Medical Plan Patient has shown accountability for his medication regimen and the pill count was correct. There is no evidence of misuse, abuse or diversion at this time. [employer] reviewed. Script sent for methadone 10 mg BID for 30 days with advanced date of 02/14/24. Patient is aware of monitoring for side effects. Encouraged adequate hydration and daily fiber intake, and physical activity as tolerated. Patient is aware to call if pain worsens or if he develops any red flag symptoms to seek emergency care. Patient denies any cauda equina syndrome symptoms at this time. Patient encouraged to avoid heavy lifting or pulling. Patient is hesitant towards back surgery or injections and has declined Neurosurgical evaluation multiple times to address his spinal-stanosis related pain. All questions were answered and the patient is in agreement with the plan. Follow up in 4-5 weeks for a pill count and sooner if needed. Medications: Refilled methadone Partial Fill upon patient request. 10 mg PO BID 30 days 60 tabs 0RF pain MDD 2 M47.816 - Spondylosis without myelopathy or radiculopathy, lumbar region, M48.061 - Spinal stenosis, lumbar region without neurogenic claudication, M54.16 - Radiculopathy, lumbar region, M96.1 - Postlaminectomy syndrome, not elsewhere classified Coding Level of Care Code Est Pt Level 4 (95200) Complex EM visit Add On G2211 Diagnoses Lumbar spinal stenosis M48.061 Lumbar radiculopathy, chronic M54.16 Lumbar post-laminectomy syndrome M96.1 Opioid contract exists Z79.891 Chronic pain syndrome G89.4 Lumbar spondylosis M47.816
[2024-02-01 09:03] VITALS: BP 156/82; PULSE 86; O2SAT 98; BMI 28.9
== END 2024-02-01 09:24 | disposition home or self-care (01) ==
PROVIDERS: PCP Nurse Practitioner Family; Visit Provider Nurse Practitioner Family
DX: M48.061 Spinal stenosis, lumbar region without neurogenic claudication (principal); M54.16 Radiculopathy, lumbar region; M96.1 Postlaminectomy syndrome, not elsewhere classified; Z79.891 Long term (current) use of opiate analgesic; G89.4 Chronic pain syndrome; M47.816 Spondylosis without myelopathy or radiculopathy, lumbar region
CPT/HCPCS: 99214; G2211

== ENCOUNTER → 2024-02-01 08:52 | Outpatient (BNVA) | payer OTHER, SELFPAY | PROVIDERS: PCP Nurse Practitioner Family; Visit Provider Nurse Practitioner Family | DX: Z51.81 Encounter for therapeutic drug level monitoring (principal); M48.061 Spinal stenosis, lumbar region without neurogenic claudication; M54.16 Radiculopathy, lumbar region; M96.1 Postlaminectomy syndrome, not elsewhere classified; M47.816 Spondylosis without myelopathy or radiculopathy, lumbar region; G89.4 Chronic pain syndrome; Z79.891 Long term (current) use of opiate analgesic | CPT/HCPCS: 99212 ==

== ENCOUNTER 2024-02-29 08:03 | Outpatient (AMB) | payer OTHER, SELFPAY ==
--- NOTE | 2024-02-29 08:18 | MHC.OFFVIS ---
Vital Signs 02/29/24 08:28 Height 6 ft 2 in Weight 225 lb 8 oz BMI 28.9 BP 160/85 H Blood Pressure Location Rt brachial Position Sitting Pulse 94 Pulse Source Pulse Oximeter Pulse Oximetry (%) 98 Oxygen Delivery Method Room Air Intake Visit Reasons: PILL COUNT Intake Note: Sridhar comes in today for a pill count to methadone, patient should have 38 tablets and presents with 36 tablets which he last took today 02/29/24 at 8am. Pain today 10/26 [employer] Required: No Accompanied by: Self / Same As Patient Allergies fentanyl Allergy (Intermediate, Verified 02/29/24 08:29) itching morphine [Amber] Allergy (Intermediate, Verified 02/29/24 08:29) itch Iodinated Contrast Media [IV Dye, Iodine Containing] Allergy (Mild, Verified 02/29/24 08:29) DIFFICULTY BREATHING,VOMITING amoxicillin [From Augmentin] Adverse Reaction (Intermediate, Verified 02/29/24 08:29) Diarrhea clavulanic acid [From Augmentin] Adverse Reaction (Intermediate, Verified 02/29/24 08:29) Diarrhea metformin Adverse Reaction (Intermediate, Verified 02/29/24 08:29) stomach pain HPI Comments Details: Patient presents today for a methadone pill count. He is supposed to have #38 pills, in his possession has #36 pills. This demonstrates a responsible attitude in regards to the opioid regimen. Patient reports mild to moderate analgesia with current dose with no noted side effects. Denies any fever, sore throat, shortness of breaths, constipation, sedation, nausea, dizziness, urinary retention, bladder or bowel dysfunction or saddle anesthesia. Denies any changes to medications, medical history or recent hospitalizations. [facility] Medical History Pre-op examination Colon cancer screening Left otitis media Weight loss, abnormal Nausea Irritable bowel syndrome with diarrhea Normal routine history and physical examination Low back pain Laboratory tests ordered as part of a complete physical exam (CPE) BPH (benign prostatic hyperplasia) Poison derek dermatitis Hx of iron deficiency anemia Screening PSA (prostate specific antigen) Lumbar spondylosis Iron deficiency anemia Normal physical exam Anemia Sepsis Acute respiratory failure with hypoxia Pneumonia History of COVID-19 History of 2019 novel coronavirus disease (COVID-19) High cholesterol Arthritis Diabetes Contact dermatitis Narcotic drug use DMII (diabetes mellitus, type 2) Elevated liver transaminase level Lumbar radiculopathy, chronic Lumbar spinal stenosis Cervical radiculopathy Lumbar post-laminectomy syndrome Surgical History History of esophagogastroduodenoscopy (EGD) H/O colonoscopy History of elbow surgery History of lumbar fusion History of cholecystectomy Family History Father Liver problem Alcoholism Substance use disorder Mother No problems noted. Brother CAD (coronary artery disease) Social History Household Members: Family Housing: House Do you presently have visiting nurse or other home services: No Alcohol intake: never Patient Tobacco Use Status: Former Tobacco user Cigarette Packs Per Day: 0.5 Cigarettes Per Day: 10 Years Smoked: 10 e-Cigarette/Vaping Use: Never Used Second Hand Smoke Exposure: No service: No Current occupational status: disabled Current occupational exposures/hazards: No Cognitive needs: No (cane) Hearing needs: No Vision needs: Yes (reading glasses) Review of Systems Const All systems reviewed & are unremarkable except as noted in HPI and below Physical Exam Vital Signs: Last Vital Signs Pulse 94 02/29/24 08:28 BP 160/85 H 02/29/24 08:28 Pulse Ox 98 02/29/24 08:28 Oxygen Delivery Method Room Air 02/29/24 08:28 BMI result Body Mass Index 28.9 On exam today: Alert and oriented. Mood and affect appropriate. Follows and participates in conversation appropriately. Respiratory effort is unlabored. No cough. Able to transition from sit to stand unassisted. Able to stand and walk on toes and heels but reports occasional unsteadiness on the left due to pain. General: Yes no CVA tenderness Back/Spine/Pelvis Other: Limited lumbar ROM due to pain. Lumbar extension and flexion forward causes moderate pain. Back: no CVA tenderness Cervical Spine: cervical ROM normal, cervical muscular tenderness, pain with cervical ROM and No Cervical spine tenderness Thoracic/Lumbar Spine: thoracic and lumbar spine normal to inspection, Thoracic/lumbar spine scar(s), Lasegue's sign positive on the left and diffuse, pain with thoraco-lumbar ROM, paraspinal muscle tenderness on the left greater than right, thoraco-lumbar ROM limited, No thoracic spinal tenderness, lumbar spinal tenderness (L3-S1) and straight leg raise positive left at 50 degrees Pelvis: buttock tenderness on the left and sciatic notch tenderness on the left Sacroiliac joints: bilaterally tender to palpation Extrem General: Yes capillary refill normal, Yes no clubbing, cyanosis or edema and Yes no calf tenderness Psych Appearance: grossly normal and well kempt Mental Status: mental status grossly normal Speech and movement: Normal speech and movement present and Clear speech present Affect: normal affect Attitude: cooperative Thought process: Normal thought process present Thought content: Normal thought content present, suicidality (none), no hallucinations and No Depressive thoughts present Insight: Good insight present (Psych) Judgement: Good judgement present (Psych) Assessment & Plan Assessment & Plan (1) Lumbar spinal stenosis: Code(s): M48.061 - Spinal stenosis, lumbar region without neurogenic claudication Category: Medical (2) Lumbar radiculopathy, chronic: Code(s): M54.16 - Radiculopathy, lumbar region Category: Medical (3) Lumbar post-laminectomy syndrome: Code(s): M96.1 - Postlaminectomy syndrome, not elsewhere classified Category: Medical (4) Opioid contract exists: Code(s): Z79.891 - alf (current) use of opiate analgesic Category: Medical (5) Chronic pain syndrome: Code(s): G89.4 - Chronic pain syndrome Category: Medical (6) Lumbar spondylosis: Code(s): M47.816 - Spondylosis without myelopathy or radiculopathy, lumbar region Category: Medical Plan Patient has shown accountability for his medication regimen and the pill count was correct. There is no evidence of misuse, abuse or diversion at this time. [facility] [employer] reviewed. Script sent for methadone 10 mg BID for 30 days with advanced date of 03/13/24. Patient is aware of monitoring for side effects. Encouraged adequate hydration and daily fiber intake, and physical activity as tolerated. All questions were answered and the patient is in agreement with the plan. Follow up in 4-5 weeks for a pill count and sooner if needed. Medications: Refilled methadone Partial Fill upon patient request. 10 mg PO BID 30 days 60 tabs 0RF pain MDD 2 M47.816 - Spondylosis without myelopathy or radiculopathy, lumbar region, M48.061 - Spinal stenosis, lumbar region without neurogenic claudication, M54.16 - Radiculopathy, lumbar region, M96.1 - Postlaminectomy syndrome, not elsewhere classified Coding Level of Care Code Est Pt Level 4 (11688) Complex EM visit Add On G2211 Diagnoses Lumbar spinal stenosis M48.061 Lumbar radiculopathy, chronic M54.16 Lumbar post-laminectomy syndrome M96.1 Opioid contract exists Z79.891 Chronic pain syndrome G89.4 Lumbar spondylosis M47.816
[2024-02-29 08:28] VITALS: BP 160/85; PULSE 94; O2SAT 98; BMI 28.9
== END 2024-02-29 08:44 | disposition home or self-care (01) ==
PROVIDERS: PCP Nurse Practitioner Family; Visit Provider Nurse Practitioner Family
DX: M48.061 Spinal stenosis, lumbar region without neurogenic claudication (principal); M54.16 Radiculopathy, lumbar region; M96.1 Postlaminectomy syndrome, not elsewhere classified; Z79.891 Long term (current) use of opiate analgesic; G89.4 Chronic pain syndrome; M47.816 Spondylosis without myelopathy or radiculopathy, lumbar region
CPT/HCPCS: 99214; G2211

== ENCOUNTER → 2024-02-29 08:03 | Outpatient (BNVA) | payer OTHER, SELFPAY | PROVIDERS: PCP Nurse Practitioner Family; Visit Provider Nurse Practitioner Family | DX: M47.26 Other spondylosis with radiculopathy, lumbar region (principal); M96.1 Postlaminectomy syndrome, not elsewhere classified; M48.061 Spinal stenosis, lumbar region without neurogenic claudication; G89.4 Chronic pain syndrome; Z51.81 Encounter for therapeutic drug level monitoring; Z79.891 Long term (current) use of opiate analgesic | CPT/HCPCS: 99212 ==

== ENCOUNTER 2024-03-03 06:06 | Outpatient (REF) | payer OTHER, SELFPAY ==
[2024-03-03 07:05] LABS: Hematocrit 44.8 % (42.0-52.0)
[2024-03-08 15:33] LABS: Testosterone, Free 42.1 pg/mL (35.0-155.0); Testosterone, Total 263 ng/dL (250-1100)
== END 2024-03-03 06:07 | disposition home or self-care (01) ==
LOC: HO.LAB 06:06
PROVIDERS: Absent Provider Urology; PCP Nurse Practitioner Family; Visit Provider Nurse Practitioner Family
DX: E29.1 Testicular hypofunction (principal); R79.89 Other specified abnormal findings of blood chemistry; Z79.890 Hormone replacement therapy
CPT/HCPCS: 36415; 84402; 84403; 85014

== ENCOUNTER → 2024-03-17 08:03 | Outpatient (BNVA) | payer OTHER, SELFPAY | PROVIDERS: PCP Hospitalist; Visit Provider Urology ==

== ENCOUNTER 2024-03-24 07:54 | Outpatient (AMB) | payer OTHER, SELFPAY ==
--- NOTE | 2024-03-23 17:03 | A.OFFVIS_ITS ---
Intake Visit Reasons: 3m labs Intake Note: Patient is Present for Follow Up Testosterone Urology Medication: Testosterone, Sildenafil Antibiotic Allergies: Amoxicillin Blood Thinners: None Testosterone labs completed: 03/03/24 Recent HA1C: 01/16/24- 6.8 Patient is requesting refill on Testosterone Gel. Denies any urinary issues. 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 Accompanied by: Self / Same As Patient Allergies fentanyl Allergy (Intermediate, Verified 03/24/24 08:19) itching morphine [Amber] Allergy (Intermediate, Verified 03/24/24 08:19) itch Iodinated Contrast Media [IV Dye, Iodine Containing] Allergy (Mild, Verified 03/24/24 08:19) DIFFICULTY BREATHING,VOMITING amoxicillin [From Augmentin] Adverse Reaction (Intermediate, Verified 03/24/24 08:19) Diarrhea clavulanic acid [From Augmentin] Adverse Reaction (Intermediate, Verified 03/24/24 08:19) Diarrhea metformin Adverse Reaction (Intermediate, Verified 03/24/24 08:19) stomach pain Medication List - Last Reconciled 03/24/24 by Arya Lopez MD acetaminophen (Tylenol Extra Strength) 500 mg PO Q6H PRN blood sugar diagnostic (FreeStyle Lite Strips) POC 4 times daily blood-glucose meter (FreeStyle Lite Meter kit) check blood sugars daily and pern cyclobenzaprine 10 mg PO TID PRN 5 days fenofibrate 54 mg PO DAILY 90 days fluticasone propionate 50 mcg/actuation (Flonase Allergy Relief) 1 spray intranasal Q12H gabapentin 300 mg PO BID 90 days insulin syringe-needle U-100 (Advocate Syringes) As directed lancets (FreeStyle Lancets) POC testing 4 times daily lidocaine 5% (Lidoderm) 1 patch topical DAILY PRN MDD remove after 12 hours linagliptin (Tradjenta) 5 mg PO DAILY meloxicam 15 mg PO DAILY PRN 30 days methadone 10 mg PO BID 30 days MDD 2 naloxone 4 mg/actuation (Narcan) 4 mg intranasal Q2M PRN naproxen 500 mg PO BID PRN 7 days omeprazole 40 mg PO DAILY safety needles (BD Eclipse Luer-Pilo) As directed for biweekly injection (injecting needle)- 2 per month sertraline 25 mg PO DAILY sildenafil 100 mg PO ONCE PRN 30 days syringe with cannula,disposabl As directed for biweekly Testosterone injection- 2 per month syringe with needle (BD Luer-Pilo Syringe) As directed testosterone 2 pumps topical DAILY 30 days HPI Comments Details: 03/24/24--Sridhar is here for follow-up. He has been evaluated due to low testosterone, Comorbidity methadone use. CoMorbidity Diabetes. Reviewed labs - 03/03/2024--TT--263ng/dL, FT 42.1. Hemoglobin 40 4.8% Blood work levels remain low normal however Sridhar states that he feels the testosterone replacement is working well he is getting normal erections and feels increased energy. Hematocrit is within normal limits. Will continue same dosage. 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 Will prescribe the AndroGel daily. Follow-up in 3 months with repeat labs. Renal ultrasound in 9 months. Review of chart: 11/29/23--Sridhar is here for follow-up. He has been evaluated due to low testosterone, Comorbidity methadone use. CoMorbidity Diabetes. Declined review trainer. 11/20/23--Hct- 42.1%, T- testosterone 222ng/dL, F-test-24.2. The patient states that sometimes he forgets to use the injection, he states he has been prescribed the gel in the past and that mode of therapy worked better for him. Will prescribe the AndroGel daily. Follow-up in 3 months with repeat labs. 08/27/23---Sridhar is here for follow-up. He has been evaluated due to low testosterone, Comorbidity methadone use. c/o's of ED. CoMorbidity Diabetes. He had a renal ultrasound a year ago noting is low. Left kidney stone. He is here to review recent ultrasound results discussed renal ultrasound 08/17/2023 - No kidney stones noted. PSA 06/26/2023--PSA 0.66. The patient did not have the testosterone refilled. Will refill testosterone replacement medication he is instructed to have labs done in 2 months for free and total testosterone and hematocrit. 06/28/2023-- Sridhar is a 62-year-old male who presents today to the office for follow up to review lab results, I have reviewed PSA 06/26/2023--0.66 ng/mL. CBC is within normal limits. Testosterone levels are pending. The patient did not have the renal ultrasound done to follow-up on management for kidney stones. Sridhar states that when he uses the Viagra 50 mg he does not get adequate effect. He states that he ordered a medication online that seems to work better. I asked him what was the medication he stated that he did not know. I have advised him to avoid using medications ordered online. I have discussed increasing the Viagra to 100 mg. Plan-testosterone levels are pending I will wait for these results before refilling testosterone replacement therapy. Renal ultrasound ordered. Follow- up in 3 months to recheck lab work and follow-up on ultrasound. Viagra 100 mg p.r.n. prior to sexual activity. Side effects discussed including erection longer than 4 hours to seek immediate emergency room attention. 02/26/2023--Sridhar is a 62 year old male with complaint of difficulty maintai calli and erection.? IIEF - 5 score 8. in a monagamous relationship, able to achieve an erection for penetration, --complains of early ejaculation then sometimes able to get an erection sometim es not successful --states is causing him to be anxious about the situation, states order some meds online --(testosterone boosters and another med to help erections which seemed to help) He denies Urgency or obstructive voiding symptoms, denies dysuria CoMorbidities- Diabetes, h/o narcotic use on methadone I reviewed Repeat Testosterone levels: 01/19/23-- TT- 158, FT- 25 He was initially evaluated on 05/01/2022 as a new patient for erectile dysfunction and complaints of premature ejaculation. He was prescribed Paxil 20 mg and Viagra 50 mg to use prior to intercourse prn. He developed nausea secondary to taking Paxil 20 mg so is not taking this med. he is on methadone.?- trial of paxil 20 mg daily-pt stopped. Viagra 50 (1/2-1 tab prn 30 minutes prior to intercourse) Plan--Failed Testosterone 20.25 mg per 1.25 gram pump, Depo Testosterone ordered. Viagra prn. Follow up in 4 months to recheck testosterone level. left kidney stone, FU renal US Imagin11/26/20-CTKUB --left kidney stone 5 mm?? renal US results from 10/19/22 which revealed 6 mm non obstructive left lower pole kidney stone. Review of labs: 10/19/2022 revealed PSA?0.61, total testosterone 215 which is low, and free testosterone 40.99 which is low normal. [facility] Medical History Pre-op examination Colon cancer screening Left otitis media Weight loss, abnormal Nausea Irritable bowel syndrome with diarrhea Normal routine history and physical examination Low back pain Laboratory tests ordered as part of a complete physical exam (CPE) BPH (benign prostatic hyperplasia) Poison derek dermatitis Hx of iron deficiency anemia Screening PSA (prostate specific antigen) Lumbar spondylosis Iron deficiency anemia Normal physical exam Anemia Sepsis Acute respiratory failure with hypoxia Pneumonia History of COVID-19 History of 2019 novel coronavirus disease (COVID-19) High cholesterol Arthritis Diabetes Contact dermatitis Narcotic drug use DMII (diabetes mellitus, type 2) Elevated liver transaminase level Lumbar radiculopathy, chronic Lumbar spinal stenosis Cervical radiculopathy Lumbar post-laminectomy syndrome Surgical History History of esophagogastroduodenoscopy (EGD) H/O colonoscopy History of elbow surgery History of lumbar fusion History of cholecystectomy Family History Father Liver problem Alcoholism Substance use disorder Mother No problems noted. Brother CAD (coronary artery disease) Social History Household Members: Family Housing: House Do you presently have visiting nurse or other home services: No Alcohol intake: never Patient Tobacco Use Status: Former Tobacco user Cigarette Packs Per Day: 0.5 Cigarettes Per Day: 10 Years Smoked: 10 e-Cigarette/Vaping Use: Never Used Second Hand Smoke Exposure: No service: No Current occupational status: disabled Current occupational exposures/hazards: No Cognitive needs: No (cane) Hearing needs: No Vision needs: Yes (reading glasses) Review of Systems Const All systems reviewed & are unremarkable except as noted in HPI and below Reports no additional complaints Eyes Reports no additional complaints ENT Reports no additional complaints Card Reports no additional complaints Resp Reports no additional complaints GI Reports no additional complaints Reports as per HPI Musc Reports no additional complaints Skin/Breast Reports system reviewed and no additional complaints, except as documented Neuro Reports no additional complaints Psych Reports no additional complaints Endo Reports no additional complaints Barrie/Lymph Reports no additional complaints Aller/Immun Reports no additional complaints Results AMB Urinalysis, Automated UA Leukoctes 0 Rashard/uL Last Edit by Yumiko Wang Ramon on 03/24/24 08:25 UA Nitrite Negative Last Edit by Yumiko Wang, A on 03/24/24 08:25 UA Urobilinogen 0.2 mg/dL Last Edit by Yumiko Wang [facility] on 03/24/24 08:2 5 UA Protein 15 mg/dL Last Edit by Yumiko Wang A on 03/24/24 08:25 UA pH 6.0 Last Edit by Yumiko Wang A on 03/24/24 08:25 UA Blood 0 Maverick/uL Last Edit by Yumiko Wang [facility] on 03/24/24 08:25 UA Specific [place] 1.025 Last Edit by Yuimko Wang A on 03/24/24 08: 25 UA Ketone Negative Last Edit by Yumiko Wang Ramon on 03/24/24 08:25 UA Bilirubin 0 mg/dL Last Edit by Yumiko Wang A on 03/24/24 08:25 UA Glucose 500 mg/dL Last Edit by Yumiko Wang [facility] on 03/24/24 08:25 Results Reviewed Results Reviewed: Laboratory Last Values Urine pH (Auto) 6.0 03/24/24 08:20 Specific [place] (Auto) 1.025 03/24/24 08:20 Urine Protein (Auto) 15 mg/dL 03/24/24 08:20 Glucose (UA)(Auto) 500 mg/dL 03/24/24 08:20 Urine Ketones (Auto) Negative 03/24/24 08:20 Urine Blood (Auto) 0 Maverick/uL 03/24/24 08:20 Urine Nitrite (Auto) Negative 03/24/24 08:20 Urine Bilirubin (Auto) 0 mg/dL 03/24/24 08:20 Urine Urobilinogen (Auto) 0.2 mg/dL 03/24/24 08:20 Leukocyte Esterase (Auto) 0 Rashard/uL 03/24/24 08:20 Date of Service: 10/19/22 EXAMINATION: US RETROPERITONEAL LIMITED (RENAL ONLY) CLINICAL INFORMATION: Calculus of kidney. COMPARISON: Renal ultrasound 06/09/2022. Ultrasound abdomen limited 02/24/2022. CT abdomen and pelvis 11/26/2020. X-ray KUB 09/20/2018 and 06/20/2014. FINDINGS: RIGHT KIDNEY: 11.7 x 5.8 x 6.3 cm (SAG x AP x TRV). The kidney is normal in size, contour, and echogenicity. Renal cortical thickness is normal. No calculi or focal parenchymal lesions. No hydronephrosis. LEFT KIDNEY: 11.8 x 6.8 x 5.4 cm (SAG x AP x TRV). The kidney is normal in size, contour, and echogenicity. Renal cortical thickness is normal. No focal parenchymal lesions or hydronephrosis. 6 x 3 x 6 mm lower pole not shadowing echogenicity is identified. IMPRESSION: Question 6 mm nonobstructing left lower pole renal calculus. Assessment & Plan Assessment & Plan (1) Long-term current use of testosterone replacement therapy: Code(s): Z79.890 - Hormone replacement therapy Category: Medical (2) Kidney stone: Code(s): N20.0 - Calculus of kidney Category: Medical (3) Kidney stone on left side: Code(s): N20.0 - Calculus of kidney Category: Medical (4) Hypogonadism in male: Code(s): E29.1 - Testicular hypofunction Category: Medical (5) Erectile dysfunction: Code(s): N52.9 - Male erectile dysfunction, unspecified Category: Medical (6) Low testosterone: Code(s): R79.89 - Other specified abnormal findings of blood chemistry Category: Medical (7) Screening PSA (prostate specific antigen): Code(s): Z12.5 - Encounter for screening for malignant neoplasm of prostate Category: Medical Plan senior living testosterone replacement. Will prescribe the AndroGel daily. Follow- up in 3 months with repeat labs. Renal ultrasound in 9 months. Orders: Orders Testosterone, Free/Total 3 Months Z79.890 - Hormone replacement therapy PSA,Total (Free>4and<10) 3 Months Z12.5 - Encounter for screening for malignant neoplasm of prostate AMB Urinalysis Automated Today Z13.9 - Encounter for screening, unspecified Hematocrit 3 Months Z79.890 - Hormone replacement therapy Medications: Refilled testosterone 2 pumps topical DAILY 30 days 75 grams 3RF Discontinued testosterone cypionate (Depo-Testosterone) Discontinued Reason: Doctor's Order 200 mg IM Q2W 4 weeks 2 mL 2RF Patient Instructions: The patient had an opportunity to ask questions regarding treatment plan. The patient expressed understanding and agreement with the above treatment plan. The patient is aware they should contact our office by phone for worsening of their current condition or the appearance of new symptoms. Compliance is encouraged with any medications and followup testing that is ordered. It is a privilege to be allowed the opportunity to participate in the urologic care of your patient. If you have any questions or concerns regarding treatment for the above conditions please do not hesitate to contact me. The office telephone contact is [phone]. This note is constructed in part using voice recognition software. While every effort has been made to ensure accuracy admitting office escort errors may have been included. Yours sincerely, Arya Lopez MD Coding Level of Care Code Est Pt Level 4 (73375) Diagnoses Long-term current use of testosterone replacement therapy Z79.890 Kidney stone N20.0 Kidney stone on left side N20.0 Hypogonadism in male E29.1 Erectile dysfunction N52.9 Low testosterone R79.89 Screening PSA (prostate specific antigen) Z12.5
== END 2024-03-24 08:56 | disposition home or self-care (01) ==
PROVIDERS: PCP Hospitalist; Visit Provider Urology
DX: Z79.890 Hormone replacement therapy (principal); N20.0 Calculus of kidney; E29.1 Testicular hypofunction; N52.9 Male erectile dysfunction, unspecified; R79.89 Other specified abnormal findings of blood chemistry; Z12.5 Encounter for screening for malignant neoplasm of prostate; Z13.9 Encounter for screening, unspecified
CPT/HCPCS: 99214

== ENCOUNTER → 2024-03-24 07:54 | Outpatient (BNVA) | payer OTHER, SELFPAY | PROVIDERS: PCP Hospitalist; Visit Provider Urology | DX: N20.0 Calculus of kidney (principal); N52.9 Male erectile dysfunction, unspecified; E29.1 Testicular hypofunction; R79.89 Other specified abnormal findings of blood chemistry; Z12.5 Encounter for screening for malignant neoplasm of prostate; Z79.890 Hormone replacement therapy | CPT/HCPCS: 81003; 99212 ==

== ENCOUNTER 2024-03-28 07:55 | Outpatient (AMB) | payer OTHER, SELFPAY ==
--- OUTSIDE RECORDS SUMMARY | 2024-03-28 07:57 | XMS_ITS | Continuity of Care Document ---
Author Organization [facility] Address [address] [place] [address] Care Team Providers Care Rn First Assistant Name Role Phone Gen Garcia APRN Unavailable [...] Diagnoses Date Provider Providers Copied on Encounter [facility], [address], [place], [place], [id number] , [facility] No Information 1 Jose Blevins. [address] [place] [address], [id number], . tel:[phone] Referring Provider: Gen Garcia, [address] [place] [address], [id number] . tel:[phone] OFFICE/OUTPA TIENT VISIT, [facility], [address], [place], [place], [id number] , [facility] back pain (chief complaint) Chronic pain syndromeRadicul opathy, lumbar regionPostlamin ectomy syndrome, not elsewhere classifiedLong term (current) use of opiate analgesic 1 Jose Blevins. [address] [place] [address], [id number], . tel:[phone] Referring Provider: Gen Garcia, [address] [place] [address], [id number] . tel:[phone] OFFICE/OUTPA TIENT VISIT, EST [facility], [address], [place], [place], [id number] , [facility] low back pain (chief complaint) Chronic pain syndromePostlam inectomy syndrome, not elsewhere classifiedRadic ulopathy, lumbar regionLong term (current) use of opiate analgesic 1 Jose Blevins. [address] [place] [address], [id number], . tel:[phone] Referring Provider: Gen Garcia, [address] [place] [address], [id number] . tel:[phone] OFFICE/OUTPA TIENT VISIT, [facility], [address], [place], [place], [id number] , [facility] No Information 1 Pérez Jung. [address] [place] [address], [id number], . tel:[phone] Referring Provider: Tori Aguayo, [address] [place] [address], [id number] . tel:[phone] [facility], [address], [place], [place], [id number] , [facility] back pain (chief complaint) Body mass index (BMI) 29.0-29.9, adultRadiculopa thy, lumbar regionPostlamin ectomy syndrome, not elsewhere classifiedLong term (current) use of opiate analgesic 1 Pérez Jung. [address] [place] [address], [id number], . tel:[phone] OFFICE/OUTPA TIENT VISIT, [facility], [address], [place], [place], [id number] , [facility] back pain (chief complaint) Body mass index (BMI) 29.0-29.9, adultRadiculopa thy, lumbar regionOther alf (current) drug therapyLumbagoP ostlaminectomy syndrome, not elsewhere classifiedDepre ssion 1 Dede Valle. [address] [place] [address], [id number], . tel:[phone] Referring Provider: Tori Aguayo, [address] [place] [address], [id number] . tel:[phone] Family History Family Member Type Diagnosis Age At Onset No Information Payers Payer name Insurance type Covered republican ID Authorjareta april(s) [facility] Medicaid [id number] Social History Type Description Quantity Date [...] ordered Referral Referred To: Jett Barron [address] [facility]
[address] [place], [place], [id number] Ordered: Referrals: Clinical Psychology. Jett Barron. Evaluate [...] walking.The patient denies relieving factors. Additional information: [address] for imaging. Functional Status Date [...] be obtained in this office. 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 Related to Depression Patient had L-MRI w/ and w/out contrast from [facility] this month and will call to retrieve report. -Will also retrieve records from previous pain management physician in [place], Dr. Carlos Eduardo Baxter and PCP in [place] ,Dr. Isela Ramirez. -Also obtain records from PCP in [facility]- Dr. Sal Mendiola.Patient will call PCP [...] reviously discussed SCS with pain management in [place], but then moved to [place]. States that he has hardware to lumbar [...] abuse.CAGE questionnaire score: 0 Related to Other alf (current) drug therapy Dietary management e ducation, guidance, and counseling Related to Body mass index [BMI] 29.0-29.9, adult Assessments Type Assessment Date No Information Patient Care Teams Name Effective Dates (start - stop) Status Members No Information
--- NOTE | 2024-03-28 08:14 | MHC.OFFVIS ---
Vital Signs 03/28/24 08:15 Height 6 ft 2 in Weight 231 lb BMI 29.7 BP 132/77 Blood Pressure Location Lt brachial Position Sitting Respiration 16 Pulse 100 Pulse Source Pulse Oximeter Pulse Oximetry (%) 97 Oxygen Delivery Method Room Air Intake Visit Reasons: PILL COUNT Intake Note: Pt states he last took methadone 03/28/24 @ 8am Allergies fentanyl Allergy (Intermediate, Verified 03/28/24 08:17) itching morphine [Amber] Allergy (Intermediate, Verified 03/28/24 08:17) itch Iodinated Contrast Media [IV Dye, Iodine Containing] Allergy (Mild, Verified 03/28/24 08:17) DIFFICULTY BREATHING,VOMITING amoxicillin [From Augmentin] Adverse Reaction (Intermediate, Verified 03/28/24 08:17) Diarrhea clavulanic acid [From Augmentin] Adverse Reaction (Intermediate, Verified 03/28/24 08:17) Diarrhea metformin Adverse Reaction (Intermediate, Verified 03/28/24 08:17) stomach pain Medication List - Last Reconciled 03/28/24 by Cristy Celaya LPN acetaminophen (Tylenol Extra Strength) 500 mg PO Q6H PRN blood sugar diagnostic (FreeStyle Lite Strips) POC 4 times daily blood-glucose meter (FreeStyle Lite Meter kit) check blood sugars daily and pern cyclobenzaprine 10 mg PO TID PRN 5 days fenofibrate 54 mg PO DAILY 90 days fluticasone propionate 50 mcg/actuation (Flonase Allergy Relief) 1 spray intranasal Q12H gabapentin 300 mg PO BID 90 days insulin syringe-needle U-100 (Advocate Syringes) As directed lancets (FreeStyle Lancets) POC testing 4 times daily lidocaine 5% (Lidoderm) 1 patch topical DAILY PRN MDD remove after 12 hours linagliptin (Tradjenta) 5 mg PO DAILY meloxicam 15 mg PO DAILY PRN 30 days methadone 10 mg PO BID 30 days MDD 2 naloxone 4 mg/actuation (Narcan) 4 mg intranasal Q2M PRN naproxen 500 mg PO BID PRN 7 days omeprazole 40 mg PO DAILY safety needles (BD Eclipse Luer-Pilo) As directed for biweekly injection (injecting needle)- 2 per month sertraline 25 mg PO DAILY sildenafil 100 mg PO ONCE PRN 30 days syringe with cannula,disposabl As directed for biweekly Testosterone injection- 2 per month syringe with needle (BD Luer-Pilo Syringe) As directed testosterone 2 pumps topical DAILY 30 days HPI Comments Details: Patient presents today for a methadone pill count. He is supposed to have #40 pills, in his possession has #43 pills. This demonstrates a responsible attitude in regards to the opioid regimen. Patient reports mild to moderate analgesia with current dose with no noted side effects. Pain is rated at 6/10. Last taken at 0800 this morning. Denies any fever, sore throat, shortness of breaths, constipation, sedation, nausea, dizziness, urinary retention, bladder or bowel dysfunction or saddle anesthesia. Denies any changes to medications, medical history or recent hospitalizations. He follows with Urology services for left kidney stone and erectile dysfunction. 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 [facility] Medical History Screening PSA (prostate specific antigen) Pre-op examination Colon cancer screening Left otitis media Weight loss, abnormal Nausea Irritable bowel syndrome with diarrhea Normal routine history and physical examination Low back pain Laboratory tests ordered as part of a complete physical exam (CPE) BPH (benign prostatic hyperplasia) Poison derek dermatitis Hx of iron deficiency anemia Lumbar spondylosis Iron deficiency anemia Normal physical exam Anemia Sepsis Acute respiratory failure with hypoxia Pneumonia History of COVID-19 History of 2019 novel coronavirus disease (COVID-19) High cholesterol Arthritis Diabetes Contact dermatitis Narcotic drug use DMII (diabetes mellitus, type 2) Elevated liver transaminase level Lumbar radiculopathy, chronic Lumbar spinal stenosis Cervical radiculopathy Lumbar post-laminectomy syndrome Surgical History History of esophagogastroduodenoscopy (EGD) H/O colonoscopy History of elbow surgery History of lumbar fusion History of cholecystectomy Family History Father Liver problem Alcoholism Substance use disorder Mother No problems noted. Brother CAD (coronary artery disease) Social History Household Members: Family Housing: House Do you presently have visiting nurse or other home services: No Alcohol intake: never Patient Tobacco Use Status: Former Tobacco user Cigarette Packs Per Day: 0.5 Cigarettes Per Day: 10 Years Smoked: 10 e-Cigarette/Vaping Use: Never Used Second Hand Smoke Exposure: No service: No Current occupational status: disabled Current occupational exposures/hazards: No Cognitive needs: No (cane) Hearing needs: No Vision needs: Yes (reading glasses) Review of Systems Const All systems reviewed & are unremarkable except as noted in HPI and below Physical Exam Vital Signs: Last Vital Signs Pulse 100 03/28/24 08:15 Resp 16 03/28/24 08:15 BP 132/77 03/28/24 08:15 Pulse Ox 97 03/28/24 08:15 Oxygen Delivery Method Room Air 03/28/24 08:15 BMI result Body Mass Index 29.7 On exam today: Alert and oriented. Mood and affect appropriate. Follows and participates in conversation appropriately. Respiratory effort is unlabored. No cough. Able to transition from sit to stand unassisted. Able to stand and walk on toes and heels but reports occasional unsteadiness on the left due to pain. Extrem General: Yes capillary refill normal, Yes no clubbing, cyanosis or edema and Yes no calf tenderness Psych Appearance: grossly normal and well kempt Mental Status: mental status grossly normal Speech and movement: Normal speech and movement present and Clear speech present Affect: normal affect Attitude: cooperative Thought process: Normal thought process present Thought content: Normal thought content present, suicidality (none), no hallucinations and No Depressive thoughts present Insight: Good insight present (Psych) Judgement: Good judgement present (Psych) Results Reviewed Results Reviewed: XR LUMBOSACRAL SPINE 11/25/23 CLINICAL INFORMATION: Back pain. Injury. COMPARISON: Lumbar spine x-rays of 10/13/2021 FINDINGS: There are 5 lumbar-type nonrib-bearing vertebrae. Minimal anterior wedge compression of L1 is a stable finding. Remainder of the vertebral body heights are maintained. Stable mild grade 1 anterolisthesis of L4 over L5. Intervertebral well incorporated disc spacer is redemonstrated at L5-S1. Facet arthropathy at L4-5 and L5-S1. Multilevel small anterolateral endplate osteophytes are noted. No suspicious lytic or blastic osseous lesions. Postcholecystectomy clips in the right upper abdominal quadrant. Limited evaluation of the sacroiliac joints are unremarkable. IMPRESSION: No evidence of acute compression fracture or traumatic subluxation. Essentially, no significant interval change is noted in the appearance of the lumbar spine compared to previous x-ray of 10/13/2021. MR LUMBAR SPINE WITHOUT CONTRAST 01/30/23 CLINICAL INFORMATION: Low back pain. Bilateral leg pain, worse on the left side. Prior surgery. COMPARISON: MRI dated 12/08/2019. TECHNIQUE: Multiplanar, multisequence imaging was obtained. FINDINGS: VERTEBRAL BODIES AND PARASPINAL STRUCTURES: An interbody prosthesis is again visible at the L5-S1 level with a solid arthrodesis. Chronic fatty marrow degenerative endplate changes again visible at this level as well. The paraspinal soft tissues appear normal. There are ibsd-he-drrayypa degenerative changes of the sacroiliac joints. There is edema in the pedicles and posterior elements at the L4-L5 level which was not present on prior imaging and may be stress-related in etiology or reactive to severity of facet arthrosis. No compression fractures are seen. A mild anterolisthesis is again evident at the L4-L5 level as well. CONUS MEDULLARIS AND CAUDA EQUINE: The distal cord, conus tip, and cauda equina nerve roots appear normal. SPINAL LEVELS: L1-L2: No central canal stenosis or foraminal narrowing. No significant disc pathology. L2-L3: Well-hydrated normal appearance of the disc without central canal stenosis or foraminal narrowing. L3-L4: Slight posterior subluxation and broad-based disc bulge with a shallow central disc protrusion and hypertrophic facet arthropathy. Disc protrusion is slightly decreased in size compared to prior imaging with diminished mass effect upon the thecal sac. Mild central canal stenosis and mild bilateral foraminal narrowing. L4-L5: Mild anterolisthesis and broad-based disc bulge noted. Previous central disc protrusion has resorbed. Infolding and thickening of the ligamentum flavum with progressed advanced facet arthropathy contributes to moderate central canal stenosis with mild foraminal narrowing. Marrow edema in the pedicles and posterior elements. L5-S1: Post interbody fusion changes with a left-sided laminectomy defect. No central canal stenosis. Mild left foraminal narrowing is stable IMPRESSION: 1. Previous central disc protrusion at the L4-L5 level has resorbed. Stable mild anterolisthesis and slightly worsened advanced facet arthropathy with moderate central canal stenosis and mild foraminal narrowing. New edema in the pedicles and posterior elements at this level, presumably reactive/stress-related in etiology. 2. Status post interbody fusion with a solid arthrodesis at the L5-S1 level, as on prior imaging. 3. Shallow central disc protrusion at the L3-L4 level is slightly decreased in size with decreased mass effect upon the thecal sac. Mild central canal stenosis and foraminal narrowing. CT ABDOMEN AND PELVIS WITHOUT CONTRAST 12/23/23 CLINICAL INFORMATION: Right-sided flank pain Mild diffuse degenerative changes of the spine. IMPRESSION: -6 mm nonobstructing left renal stone. No hydronephrosis. -Diffusely decreased liver attenuation suggesting hepatic steatosis. Correlation with liver enzymes recommended. 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 There is no evidence of misuse, abuse or diversion at this time. tidy reviewed. Script sent for methadone 10 mg BID for 30 days with advanced date of 04/17/24. Patient is aware of monitoring for side effects. Encouraged adequate hydration and daily fiber intake, and physical activity as tolerated. All questions were answered and the patient is in agreement with the plan. Follow up in 4-5 weeks for a pill count and sooner if needed. Medications: Refilled methadone Partial Fill upon patient request. 10 mg PO BID 30 days 60 tabs 0RF pain MDD 2 M47.816 - Spondylosis without myelopathy or radiculopathy, lumbar region, M48.061 - Spinal stenosis, lumbar region without neurogenic claudication, M54.16 - Radiculopathy, lumbar region, M96.1 - Postlaminectomy syndrome, not elsewhere classified Coding Level of Care Code Est Pt Level 4 (61175) Complex EM visit Add On G2211 Diagnoses Lumbar radiculopathy, chronic M54.16 Lumbar post-laminectomy syndrome M96.1 Opioid contract exists Z79.891 Chronic pain syndrome G89.4 Lumbar spondylosis M47.816
[2024-03-28 08:15] VITALS: BP 132/77; PULSE 100; RESP 16; O2SAT 97; BMI 29.7
== END 2024-03-28 08:40 | disposition home or self-care (01) ==
PROVIDERS: PCP Nurse Practitioner Family; Visit Provider Nurse Practitioner Family
DX: M54.16 Radiculopathy, lumbar region (principal); M96.1 Postlaminectomy syndrome, not elsewhere classified; Z79.891 Long term (current) use of opiate analgesic; G89.4 Chronic pain syndrome; M47.816 Spondylosis without myelopathy or radiculopathy, lumbar region
CPT/HCPCS: 99214; G2211

== ENCOUNTER → 2024-03-28 07:55 | Outpatient (BNVA) | payer OTHER, SELFPAY | PROVIDERS: PCP Nurse Practitioner Family; Visit Provider Nurse Practitioner Family | DX: Z51.81 Encounter for therapeutic drug level monitoring (principal); M96.1 Postlaminectomy syndrome, not elsewhere classified; M54.16 Radiculopathy, lumbar region; G89.4 Chronic pain syndrome; Z79.891 Long term (current) use of opiate analgesic; M47.816 Spondylosis without myelopathy or radiculopathy, lumbar region | CPT/HCPCS: 99212 ==

== ENCOUNTER 2024-04-14 08:52 | Emergency (ER) | payer OTHER, SELFPAY ==
[2024-04-14 08:54] VITALS: BP 119/88; PULSE 112; RESP 16; TEMP 36.1; O2SAT 96; BMI 25.7
[2024-04-14 09:14] LABS: MANUAL DIFF FLAG NO
[2024-04-14 09:16] LABS: Basophils Percent Auto 0.6 % (0-2); Eosinophils Absolute Auto 0.1 X10*3/uL (0.0-0.4); Eosinophils Percent Auto 2.6 % (0-4); Hematocrit 43.3 % (42.0-52.0); Hemoglobin 14.5 g/dl (14.0-18.0); Imm Gran Abs Auto 0.01 X10*3/uL (0.00-0.03); Imm Gran Pct Auto 0.2 % (0.0-0.4); Lymphocytes Absolute Auto 1.5 X10*3/uL (1.2-4.9); Lymphocytes Percent Auto 30.5 % (20-40); Mean Corpuscular HGB Conc 33.5 g/dl (31.0-36.0); Mean Corpuscular Hemoglobin 29.4 pg (27.0-33.0); Mean Corpuscular Volume 87.8 fL (80.0-98.0); Mean Platelet Volume 10.9 fL (9.4-12.4); Monocytes Absolute Auto 0.4 X10*3/uL (0.1-1.2); Monocytes Percent Auto 7.7 % (2-11); Neutrophils Absolute Auto 2.9 x10*3/uL (2.0-8.3); Neutrophils Percent Auto 58.4 % (45-73); Platelet Count 199 X10*3/uL (160-400); Red Blood Count 4.93 X10*6/uL (4.60-5.80); Red Cell Distribution Width 12.5 % (11.0-16.0)
[2024-04-14 09:30] LABS: Albumin Level 4.4 g/dL (3.5-5.0); Alkaline Phosphatase 60 U/L (39-117); Anion Gap 12 (12-20); Aspartate Amino Transferase 28 U/L (5-37); Bilirubin Total 0.5 mg/dL (0.0-1.0); Blood Urea Nitrogen 15 mg/dL (9-16); Calcium 8.8 mg/dL (8.4-10.2); Carbon Dioxide 25 mmol/L (22-29); Chloride 105 mmol/L (96-108); Creatinine Clr Calc Pharmacy 95.9; Estimated Glomerular Filt Rate > 60; Glucose Random 175 mg/dL (60-115); Potassium 3.9 mmol/L (3.3-5.1); Sodium 138 mmol/L (135-145); Total Protein 7.7 g/dL (6.5-8.0)
[2024-04-14 09:45] LABS: Alanine Aminotransferase 51 U/L (0-40)
--- OUTSIDE RECORDS SUMMARY | 2024-04-14 13:26 | XMS_ITS | Patient Health Record ---
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 Name Role Phone Vania NEW, Harshad Primary Care Provider Unavail able Vika Mendez Unavailable [phone] Allergies No Known Allergies Results Component Value Reference Range Notes HEMOGLOBIN A1C (GLYCOHEMOGLO BIN) Reviewed date:10/03/2023 08:41:03 AM Interpretation: Performing Lab: Notes/Report: HEMOGLOBIN A1C (HH) 6.8 Reason For Referral No Information Medications Medication SIG (Take, Route, Frequency, Duration) Notes Start Date End Date Status Naloxone HCl 4 MG/10ML as directed Injection narcan Not-Taking Omeprazole 40 MG 1 capsule 30 minutes before morning meal Orally Once a day for 30 day(s) Active Diclofenac Potassium 50 MG 1 tablet with food or milk as needed Orally Twice a day Not-Taking PARoxetine HCl 20 MG 1 tablet in the morning Orally Once a day for 30 day(s) paxil Active Diclofenac Sodium 1 % as directed Externally voltaren Not-Taking Sildenafil Citrate 50 MG 1 tablet as needed Orally Once a day for 30 day(s) viagra Active Fenofibrate 54 MG 1 tablet with food Orally Once a day for 30 day(s) Active Lidocaine lidoderm Active Sertraline HCl 25 MG Oral for 30 Days Active Linagliptin tradjenta Active Ciclopirox Olamine 0.77 % 1 application to affected area Externally to feet Twice a day for 30 days Active Methadone HCl 5 MG 1 tablet Orally Once a day Active Acetaminophen Active Coenzyme Q10 30 MG as directed Orally Not-Taking Tradjenta 5 MG 1 tablet Orally Once a day Active Ferrous Sulfate 325 (65 Fe) MG 1 tablet Orally Once a day for 30 day(s) Active Gabapentin 300 MG 1 capsule Orally Onc e a day for 30 day(s) Active Lactobacillus Not-Ta mikal Lancets Not-Taking Immunizations Vaccine Route Administration Date Status Comme nts Influenza Unknown 01/17/2023 Administered Social History Tobacco Use: Social History Observation Description Date Details (start date - stop date) Former Smoker NA - NA Tobacco Use/Smoking Question Answer Notes Are you a: former smoker Additional Findings: Tobacco Non-User Ex-cigaret te smoker Alcohol Screen Question Answer Notes Did you have a drink containing alcohol in the p ast year? No Points 0 Interpretation Negative Tobacco use other than smoking: Question Answer Notes Are you an other tobacco user? No Problems Problem Type SNOMED Code ICD Code Onset Dates Problem Status W/U Status Risk Notes Problem [id number] Type 2 diabetes mellitus with polyneuropathy (E11.42) Active confirmed Vital Signs Blood pressure diastolic 87 mm Hg 10/03/2023 Height 6ft2in in 10/03/2023 Blood pressure systolic 137 mm Hg 10/03/2023 Weight 228 lbs 10/03/2023 BMI 29.27 kg/m2 10/03/2023 Encounters Encounter Location Date Provider Diagnosis [facility] [address] [place] [address] 10/03/2023 Vika Mendez Tinea pedis B35.3 ; Plantar fibromatosis M72.2 and Type 2 diabetes mellitus with polyneuropathy E11.42 Assessments Encounter Date Diagnosis (ICD Code) Assessment Notes Treatment Notes Treatment Clinical Notes Section Notes 10/03/2023 Tinea pedis (ICD-10 - B35.3) 10/03/2023 Plantar fibromatosis (ICD-10 - M72.2) 10/03/2023 Type 2 diabetes mellitus with polyneuropathy (ICD-10 - E11.42) Plan Of Treatment Next Appt Details Provider Name:Vika covington, 10/07/2024 09:00:00 AM, [address] [place], [address], Insurance Providers Payer Name Payer Address Payer Phone Subscriber Number Group Number Insured Name Patient Relationship to Insured Coverage Start Date Coverage End Date [facility] [employer] Claims [address] [place] [phone] [id number] Sridhar Lacy Self - patient is the insured Medical (General) History Medical History History ICD Code Arthritis Depression Diabetes Surgical History Surgery Date(Month/Year)
--- OUTSIDE RECORDS SUMMARY | 2024-04-14 13:26 | XMS_ITS | Continuity of Care Document ---
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 [address] [place] [address], [id number], . tel:[phone] Referring Provider: Gen Garcia, [address] [place] [address], [address] . tel:[phone] OFFICE/OUTPA TIENT VISIT, [facility], [address], [place], [place], [id number] , [facility] back pain (chief complaint) Chronic pain syndromeRadicul opathy, lumbar regionPostlamin ectomy syndrome, not elsewhere classifiedLong term (current) use of opiate analgesic 1 Jose Blevins. [address] [place] [address], [id number], . tel:[phone] Referring Provider: Gen Garcia, [address] [place] [address], [address] . tel:[phone] OFFICE/OUTPA TIENT VISIT, EST [facility], [address], [place], [place], [id number] , [facility] low back pain (chief complaint) Chronic pain syndromePostlam inectomy syndrome, not elsewhere classifiedRadic ulopathy, lumbar regionLong term (current) use of opiate analgesic 1 Jose Blevins. [address] [place] [address], [id number], . tel:[phone] Referring Provider: Gen Garcia, [address] [place] [address], [id number] . tel:[phone] OFFICE/OUTPA TIENT VISIT, [facility], [address], [place], [place], [id number] , [facility] No Information 1 Pérez Jung. [address] [place] [address], [id number], . tel:[phone] Referring Provider: Tori Aguayo, [address] [place] [address], [id number] . tel:[phone] [facility], [address], [place], [place], [id number] , [facility] back pain (chief complaint) Body mass index (BMI) 29.0-29.9, adultRadiculopa thy, lumbar regionPostlamin ectomy syndrome, not elsewhere classifiedLong term (current) use of opiate analgesic 1 Pérez Jung. [address] [place] [address], [id number], . tel:[phone] OFFICE/OUTPA TIENT VISIT, [facility], [address], [place], [place], [id number] , [facility] back pain (chief complaint) Body mass index (BMI) 29.0-29.9, adultRadiculopa thy, lumbar regionOther alf (current) drug therapyLumbagoP ostlaminectomy syndrome, not elsewhere classifiedDepre ssion 1 Dede Valle. [address] [place] [address], [id number], . tel:[phone] Referring Provider: Tori Aguayo, [address] [place] [address], [id number] . tel:[phone] Family History Family Member Type Diagnosis Age At Onset No Information Payers Payer name Insurance type Covered alliance party ID Authorjareta april(s) [facility] Healthcare Plans Medicaid [id number] Social History Type Description Quantity Date [...] ordered Referral Referred To: Jett Barron [address] [facility]
[address] [place], [place], [id number] Ordered: Referrals: Clinical Psychology. Jett Barron. Evaluate [...] walking.The patient denies relieving factors. Additional information: [email or web address] brito lulu for imaging. Functional Status Date [...] be obtained in this office. 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 Related to Depression Patient had L-MRI w/ and w/out contrast from [facility] this month and will call to retrieve report. -Will also retrieve records from previous pain management physician in [place], Dr. Carlos Eduardo Baxter and PCP in [place] ,Dr. Isela Ramirez. -Also obtain records from PCP in [facility]- Dr. Sal Mendiola.Patient will call PCP for renewal of methadone prescription as he is aware we cannot prescribe any narcotics until UDS sample results.Will prescribe Cymbalta 30mg BID and patient advised to start with 1 capsule in the evening for 7 days, then increase to BID. Related to Radiculopathy, lumbar region States that he had p reviously discussed SCS with pain management in [place], but then moved to [place]. States that he has hardware to lumbar [...]
--- OUTSIDE RECORDS SUMMARY | 2024-04-14 13:27 | XMS_ITS ---
Author Organization [facility] Address [address] [place] [address] Care Team Providers Care Forensic Psychiatrist Name Role Phone Vania NEW, Harshad Primary Care Provider Unavail able AgustinaFabio covingtonen Unavailable [phone] Allergies No Known Allergies REASON FOR VISIT Pcp-05/12, PCP: 06/2022, Skin Problem Medications Medication SIG (Take, Route, Frequency, Duration) Notes Start Date End Date Status Sildenafil Citrate 50 MG 1 tablet as needed Orally Once a day for 30 day(s) viagra Active Sertraline HCl 25 MG Oral for 30 Days Active Ciclopirox Olamine 0.77 % 1 application to affected area Externally to feet Twice a day for 30 days Active Acetaminophen Active Tradjenta 5 MG 1 tablet Orally Once a day Active Diclofenac Potassium 50 MG 1 tablet with food or milk as needed Orally Twice a day Not-Taking Diclofenac Sodium 1 % as directed Externally voltaren Not-Taking Fenofibrate 54 MG 1 tablet with food Orally Once a day for 30 day(s) Active Coenzyme Q10 30 MG as directed Orally Not-Taking Ferrous Sulfate 325 (65 Fe) MG 1 tablet Orally Once a day for 30 day(s) Active Lidocaine lidoderm Active Linagliptin tradjenta Active Gabapentin 300 MG 1 capsule Orally Onc e a day for 30 day(s) Active Lactobacillus Not-Ta mikal Lancets Not-Taking Naloxone HCl 4 MG/10ML as directed Injection narcan Not-Taking Omeprazole 40 MG 1 capsule 30 minutes before morning meal Orally Once a day for 30 day(s) Active PARoxetine HCl 20 MG 1 tablet in the morning Orally Once a day for 30 day(s) paxil Active Methadone HCl 5 MG 1 tablet Orally Once a day Active Social History Tobacco Use: Social History Observation [...] Are you an other tobacco user? No Vital Signs Height 6ft2in in 10/03/2023 Weight 228 lbs 10/03/2023 BMI 29.27 kg/m2 10/03/2023 Blood pressure systolic 137 mm Hg 10/03/19 24 Blood pressure diastolic 87 mm Hg 024 Encounters Encounter Location Date Provider Diagnosis [facility] [address] [id number] 10/03/2023 Vika Mendez Tinea pedis B35.3 ; Plantar fibromatosis M72.2 and Type 2 diabetes mellitus with polyneuropathy E11.42 Assessments Encounter Date Diagnosis (ICD Code) Assessment Notes Treatment Notes Treatment Clinical Notes Section Notes 10/03/2023 Tinea pedis (ICD-10 - B35.3) 10/03/2023 Plantar fibromatosis (ICD-10 - M72.2) 10/03/2023 Type 2 diabetes mellitus with polyneuropathy (ICD-10 - E11.42) Plan Of Treatment Next Appt Details Follow Up: 1 Year, Reason: Provider Name:Vika covington, 10/07/2024 09:00:00 AM, [address] [place] [address], [id number], Procedure Notes * Category Sub-Category Detail Notes Keratoma Treatment Parring or Cutting o f Benign Hyperkeratotic Lesion(s) 11570 ( 2-4 Lesions ) - The Benign hyperkeratotic lesions, as described above were pared, and/or cut utilizing a sterile 15 blade, tissue nippers, and/or dremel Progress Notes * Sridhar LACYDOB: [birth year] (63 yo M)Acc No.[id number]:10/03/2023 Progress Note Patient:?Sridhar Lacy Provider:?Vika Mendez DPM :1960???Age:63 Y???Sex:Male Santy e:10/03/2023 Address:[address] [place], [place] [id number] Pcp:Harshad Caro NP Subjective: * Chief Complaints: * ???Pcp-05/12 PCP: 06/2022Jay mcfarland Problem * HPI: ???Skin problems:?Nature:?Lump, tender; rash great toe?.?Location:?Bottom , Right.?Course:?recurrent.?Aggravated by:?any pressure , standing , walking.?Treatments:?Medication (Ciclopirox Olamine 0.77 Cream).? * ROS:?General/Constitutional:?Nausea?denies, denies, denies, denies.?Vomiting?denies, denies, denies, denies.?Hunger Thirst?denies, denies, denies, denies.?Loss appetite?denies, denies, denies, denies.?Chills?denies, denies, denies, denies.?Fatigue?denies, denies, denies, denies.?Fever?denies, denies, denies, denies.?Night Sweats?denies, denies, denies, denies.?Unexplained weight loss?denies, denies, denies, denies.?Unexplained weight gain?denies, denies, denies, denies.?HEENTM:?Dentures?denies, denies, denies, denies.?Dizziness?denies, denies, denies, denies.?Glasses/contacts?admits, denies, denies, denies.?Retinopathy?denies, denies, denies, denies.?Blurred/double vision?denies, denies, denies, denies.?TMJ?denies, denies, denies, denies.?Discharge/drainage?denies, denies, denies, denies.?Implants?denies, denies, denies, denies.?Sore throat?denies, denies, denies, denies.?Dental implants?denies, denies, denies, denies.?Hard of hearing ?denies, denies, denies, denies.?Difficulty chewing/swallowing/speaking?denies, denies, denies, denies.?Nose bleeds?denies, denies, denies, denies.?Sore mouth?denies, denies, denies, denies.?Respiratory:?On Oxygen?denies, denies, denies, denies.?Pneumonia/pleurisy?denies, denies, denies, denies.?Bronchitis?denies, denies, denies, denies.?Emphysema?denies, denies, denies, denies.?Coughing?denies, denies, denies, denies. Cough blood?denies, denies, denies, denies.?Shortness of breath?denies, denies, denies, denies.?Wheezing?denies, denies, denies, denies.?Cardiovascular:?Pacemaker?denies, denies, denies, denies.?MVP?denies, denies, denies, denies.?WPW?denies, denies, denies, denies.?CHF?denies, denies, denies, denies.?Heart attack?denies, denies, denies, denies.?Septal defect?denies, denies, denies, denies.?Rapid beat?denies, denies, denies, denies.?Chest pain ?denies, denies, denies, denies.?Atrial Fib.?denies, denies, denies, denies.?Murmur/Palpitations?denies, denies, denies, denies.?Gastrointestinal:?Hemorrhoids?denies, denies, denies, denies, denies.?Stomach/Abdominal pain?denies, denies, denies, denies.?Dark blood stool?denies, denies, denies, denies, denies.?Irritable bowel ?denies, denies, denies, denies, denies.?Constipation?denies, denies, denies, denies.?Diarrhea?denies, denies, denies, denies.?Hematology:?Swelling?denies, denies, denies, denies, denies.?Clots?denies, denies, denies, denies, denies.?Varicose Veins?denies, denies, denies, denies, denies.?Bruising?denies, denies, denies, denies, denies.?Bleeding problem?denies, denies, denies, denies, denies.?Genitourinary:?Blood urine?denies, denies, denies, denies, denies.?Frequent/Painfu/urination/bladder control?denies, denies, denies, denies, denies.?Kidney stones?denies, denies, denies, denies.?Infection (UTI)?denies, denies, denies, denies, denies.?Nephropathy?denies, denies, denies, denies, denies.?sex trans dis (STD)?denies, denies, denies, denies, denies.?Prostate?denies, denies, denies, denies, denies.?Musculoskeletal:?Hammertoes?denies, denies, denies, denies.?Bunions?denies, denies, denies, denies.?Back Pain?denies, denies, denies, denies.?Muscle Cramps/ Resting?denies, denies, denies, denies.?Muscle cramps / walking?denies, denies, denies, denies.?Generalized aches and pains?admits, denies, denies, denies.?Weakness?denies, denies, denies, denies, denies.?Integ.:?Monreal?denies, denies, denies, denies.?Scars?denies, denies, denies, denies.?Corns/calluses?admits, denies, denies, denies.?Ingrown nails?denies, denies, denies, denies.?Painful nails?denies, denies, denies, denies. Open Sores?denies, denies, denies, denies.?Rashes?denies, denies, denies, denies.?Neurologic:?Difficulty sleeping?denies, denies, denies, denies, denies.?Brain disorder?denies, denies, denies, denies.?Numbness?denies, denies, denies, denies, denies.?Balance trouble?denies, denies, denies, denies, denies.?Confusion denies, denies, denies, denies.?Fainting/blackouts?denies, denies, denies, denies.?Tingling?denies, denies, denies, denies.?Tremors?denies, denies, denies, denies.? * Medical History:? * Surgical History:?Lexi lynne Surgical History * Hospitalization/Major Diagno stic Procedure:?Denies Past Hospitalization * Family History:?Mother: unkn own.?Father: unknown.? * Social History:?Tobacco Use:?Tobacco Use/Smoking?Are you a:?former smoker ?Additional Findings: Tobacco Non-User?Ex-cigarette smoker ?Tobacco use other than smoking?Are you an other tobacco user??No ???Drugs/Alcohol:?Drugs?Have you used drugs other than those for medical reasons in the past 12 months??No ?Alcohol Screen?Did you have a drink containing alcohol in the past year??No ?Points?0 ?Interpretation?Negative ???Miscellaneous:?Caffeine: yes, frequency:, 1-2 cups per day. ?Children: yes. ?no Exercise. ?Marital status: . ?Occupation: Retired. * Medications:?TakingTradjenta 5 MG Tablet 1 tablet Orally Once a daySildenafil Citrate 50 MG Tablet 1 tablet as needed Orally Once a day, Notes: viagraPARoxetine HCl 20 MG Tablet 1 tablet in the morning Orally Once a day, Notes: paxilOmeprazole 40 MG Capsule Delayed Release 1 capsule 30 minutes before morning meal Orally Once a dayMethadone HCl 5 MG Tablet 1 tablet Orally Once a dayLinagliptin , Notes: tradjentaLidocaine , Notes: lidodermGabapentin 300 MG Capsule 1 capsule Orally Once a dayFerrous Sulfate 325 (65 Fe) MG Tablet 1 tablet Orally Once a dayFenofibrate 54 MG Tablet 1 tablet with food Orally Once a dayAcetaminophen Ciclopirox Olamine 0.77 % Cream 1 application to affected area Externally to feet Twice a daySertraline HCl 25 MG Tablet Oral Taking Tradjenta 5 MG Tablet 1 tablet Orally Once a dayTaking Sildenafil Citrate 50 MG Tablet 1 tablet as needed Orally Once a day, Notes: viagraTaking PARoxetine HCl 20 MG Tablet 1 tablet in the morning Orally Once a day, Notes: paxilTaking Omeprazole 40 MG Capsule Delayed Release 1 capsule 30 minutes before morning meal Orally Once a dayTaking Methadone HCl 5 MG Tablet 1 tablet Orally Once a dayTaking Linagliptin , Notes: tradjentaTaking Lidocaine , Notes: lidodermTaking Gabapentin 300 MG Capsule 1 capsule Orally Once a dayTaking Ferrous Sulfate 325 (65 Fe) MG Tablet 1 tablet Orally Once a dayTaking Fenofibrate 54 MG Tablet 1 tablet with food Orally Once a dayTaking Acetaminophen Taking Ciclopirox Olamine 0.77 % Cream 1 application to affected area Externally to feet Twice a dayTaking Sertraline HCl 25 MG Tablet Oral Not-Taking/PRNNaloxone HCl 4 MG/10ML Solution as directed Injection , Notes: narcanLancets Lactobacillus Diclofenac Sodium 1 % Gel as directed Externally , Notes: voltarenDiclofenac Potassium 50 MG Tablet 1 tablet with food or milk as needed Orally Twice a dayCoenzyme Q10 30 MG Capsule as directed Orally Medication List reviewed and reconciled with the patientNot-Taking/PRN Naloxone HCl 4 MG/10ML Solution as directed Injection , Notes: narcanNot-Taking/PRN Lancets Not-Taking/PRN Lactobacillus Not-Taking/PRN Diclofenac Sodium 1 % Gel as directed Externally , Notes: voltarenNot-Taking/PRN Diclofenac Potassium 50 MG Tablet 1 tablet with food or milk as needed Orally Twice a dayNot-Taking/PRN Coenzyme Q10 30 MG Capsule as directed Orally Medication List reviewed and reconciled with the patient * Allergies:?N.K.D.A.yes[Aller gies Verified] Objective: * Vitals:?Ht: 6ft2in, Wt:228, BMI:29.27, Shoe size: 12, BP:137/87 mm Hg, BS: not taken, Ht-cm: 187.96 cm, Wt-k.42 kg. * ???Past Orders: ???Lab:HEMOGLOBIN A1C (GLYCO HEMOGLOBIN) (Order Date - 08/18/2023) (Collection Date - 08/18/2023) ? Value Reference Range ?HEMOGLOBIN A1C (HH) 6.8 * Examination: ???Ophthalmology Referral: ?DIABETES EYE EXAM?Dermatologic: ?SKIN FINDINGS:? Skin shows sign(s) of, a semi-firm, painful, nontransluscent, nonpulsitile, nonmobile Sub Fascial tumor sabrina. 10 mm, Plantar, Midfoot Right, Skin shows sign(s) of, erythema, scaling, in a moccasin fashion, no fissure(s) present, T5 Skin exam reveals Keratotic lesion(s) located at T5 T6.?General Examination: ?GENERAL APPEARANCE:?Reveals a pleasant, alert, well-nourished, well- developed, well hydrated individual, who demonstrates proper attention to hygiene/body habitus, and is in no acute distress, Pt serves as own?historian for office visit today.?ORIENTED:?person, place, and time.?Neurological: ?SENSORY:?Neurological exam demonstrates , reduced light touch sensation , reduced sharp/dull pin prick discrimination , reduced vibration sensation , reduced proprioception sensation , in a stocking fashion , plantar aspects , 5.07 monofilament test performed at plantar aspects of 5 varied sites per foot shows sensation , reduced , at Forefoot , B/L.?DEEP TENDON REFLEXES:?Achilles, 2/4, B/L.?Vascular: ?DP PULSES:?3/4, B/L.?PT PULSES:?3/4, B/L.?CAPILLARY FILL TIME:?immediate, all digits, B/L.?SKIN TEMPERTURE GRADIENT OF THE LOWER EXTERMITIES:?warm to cool, proximal to distal, B/L.?HAIR GROWTH/TEXTURE/ELASTICITY/TURGOR:?normal, B/L.?PIGMENTATION:?normal, B/L.?EDEMA:?absent, B/L.?Orthopedic: ?MUSCLE STRENGTH:?5/5 all groups in a symmetrical fashion , B/L.? Assessment: * Assessment: 1.?Tinea pedis - B35.3 (Prim jyothi), Acute problem, Uncomplicated (3)?2.?Plantar fibromatosis - M72.2?3.?Type 2 diabetes mellitus with polyneuropathy - E11.42? Plan: * Treatment: * Procedures:?Keratoma Treatment:?Parring or Cutting of Benign Hyperkeratotic Lesion(s)?05222 ( 2-4 Lesions ) - The Benign hyperkeratotic lesions, as described above were pared, and/or cut utilizing a sterile 15 blade, tissue nippers, and/or dremel.? * Procedure Codes:?19719 TRIM SKIN LESIONS, 2 TO 4, Modifiers: XS * Preventive Medicine:? ??Counseling:?Discussion:?-13: Office or other outpatient visit for the evaluation and management of an established patient, which required a medically appropriate history and/or examination and LOW level of DECISION MAKING for: 1 STABLE ACUTE UNCOMPLICATED PROBLEM, 2 OR MORE MINOR PROBLEMS, OR 1 STABLE CHRONIC PROBLEM, THAT POSE(S) A LOW RISK FOR MORBIDITY/MORTALITY. When using time for code selection, 20-29 min of total time was spent on the day of the encounter interpreting the data and educating the patient as to the nature of their condition, treatment options available according to their individual PMH, meds, allergies, and overall health/living conditions, as well as any potential risks or complications that may occur from a failure to adhere to, and participate in, the recommended course of therapy. The discussion included a complete verbal, and/or written explanation of the examination results, any x- rays taken, the proposed diagnosis, and outline of the treatment plan. A schedule for future care needs was also explained. The patient verbalized an understanding of the instructions at this time and agreed to be an active participant in their treatment. If the patient should think of any questions or concerns after the visit, I have encouraged the patient to call the office.?Fibromas:?The patient was counseled on the diagnosis, potential etiologies, and treatment options for their Fibroma condition. We discussed the risks and benefits of each option from performing no treatment, to utilizing OTC topical skin creams/ointments, to utilizing prescription topical creams/ointments such as Verapamil, to utilizing customized compounded topical medications, change in shoes, pressure accomidative innersoles, padding, deep tissue massage, injections of cortisone, sclerosis injections, EPAT/ESWT, as well as Surgical excision. We discussed the advantages and disadvantages of each possible treatment and importance for adherence to all the recommended therapies for optimum success and avoid potential complications such as open sore/infection/possible hospitalization. We discussed the potential effectiveness of each topical preparation as well as each ones possible side effects and/or patient medication interactions. We discussed the procedure for surgical removal, its potential benefits, the anesthesia, post-op recuperation and need for complete NWB/Crutches/Walker for at least a month, and possible complications such as failure, nerve damage resulting in permanent numbness, infection, scarring, and recurrence. Patient questions re: use, dosage, successful outcomes, application consistency, and surgical treatment were reviewed and the patient verbalized that all answers were clearly understood.?Tinea Pedis:?FU-The patient was again counseled on the diagnosis, potential etiologies, and treatment options for their skin condition. We again discussed the risks and benefits of each option from performing no treatment, to utilizing OTC topical skin creams, prescription topical creams, customized compounded topical medications, and, if necessary, to utilize oral antifungal therapy. We reviewed the advantages and disadvantages of each possible treatment and importance for adherence to all the recommended therapies for optimum success and avoid potential complications such as open sore/infection/possible hospitalization. We again discussed the potential effectiveness of each topical preparation as well as each ones possible side effects and/or patient medication interactions if oral therapy is selected. Patient questions re: the advantages and disadvantages of each treatment choice, medication use/dosage, successful outcomes, and application consistency were again reviewed and the patient verbalized that all answers were clearly understood. The patient was again told they can help alleviate symptoms by utilizing moisture absorbant innersoles with activated charcoal and baking soda, applying antifungal sprays daily, aerating toe web spaces at night by putting cotton or lambs wool between the toes, alternating shoes daily if possible so shoes can dry out, changing socks at least once during the day, wearing well-ventilated shoes or sandals. The patient has decided to continue to apply Rx skin creams to their feet as directed.? * Follow Up:?1 Year * Images: * Sign off status: Completed true * Provider:?Vika Mendez DPM Date:? Generated for Holly voss/Jennifer/Leonela on:?04/14/2024 01:26 PM EST History and Physical Notes * HPI (History of Present Illness) Category Sub-Category Detail Notes Category Not es Skin problems Nature: Lump, tender; rash great to e Location: Bottom , Right Course: recurrent Aggravated by: any pressure , stand ing , walking Treatments: Medication (Ciclopir ox Olamine 0.77 Cream) Examination Category Sub-Category Detail Notes Category Not es Neurological SENSORY: Neurological exa m demonstrates , reduced light touch sensation , reduced sharp/dull pin prick discrimination , reduced vibration sensation , reduced proprioception sensation , in a stocking fashion , plantar aspects , 5.07 monofilament test performed at plantar aspects of 5 varied sites per foot shows sensation , reduced , at Forefoot , B/L DEEP TENDON REFLEXES: Achilles, 2/4, B/L Dermatologic SKIN FINDINGS: Skin shows sign( s) of, a semi-firm, painful, nontransluscent, nonpulsitile, nonmobile Sub Fascial tumor sabrina. 10 mm, Plantar, Midfoot Right, Skin shows sign(s) of, erythema, scaling, in a moccasin fashion, no fissure(s) present, T5 Skin exam reveals Keratotic lesion(s) located at T5 T6 Orthopedic MUSCLE STRENGTH: 5/5 all groups in a symm etrical fashion , B/L General Examination GENERAL APPEARANCE: Reveals a pleasant, alert, well- nourished, well-developed, well hydrated individual, who demonstrates proper attention to hygiene/body habitus, and is in no acute distress, Pt serves as own historian for office visit today ORIENTED: person, place, and t sandra Ophthalmology Referral DIABETES EYE EXAM Diabetic Retinopa thy Screening:: Yes Findings of Diabetic Eye Exam:: no retin opathy Vascular DP PULSES (B): 3/4, B/L PT PULSES (B): 3/4, B/L CAPILLARY FILL TIME: immediate, all digi ts, B/L TEMPERTURE GRADIENT (C): warm to cool, p roximal to distal, B/L TROPHIC CONDITION-TEXTURE/ELASTICITY/TURGOR/HAIR GROWTH (B): normal, B/L EDEMA (C): absent, B/L PIGMENTATION: normal, B/L
== END 2024-04-14 11:10 | disposition left against medical advice (07) ==
PROVIDERS: Emergency Provider Emergency Medicine; PCP Nurse Practitioner Family
DX: R10.9 Unspecified abdominal pain (principal); R51.9 Headache, unspecified; R42 Dizziness and giddiness; E11.9 Type 2 diabetes mellitus without complications; E78.5 Hyperlipidemia, unspecified; Z79.890 Hormone replacement therapy
CPT/HCPCS: 36415; 80053; 85025; 99281

== ENCOUNTER → 2024-04-25 07:54 | Outpatient (AMB) | payer OTHER, SELFPAY ==
--- OUTSIDE RECORDS SUMMARY | 2024-04-25 07:56 | XMS_ITS | Encounter Summary ---
Author Organization [facility] Address [address] [facility] [address] [place] [address] Care Team Providers Care Light Coil Winder Name Role Phone Unavailable Primary Care Provider Unavailabl e Reason for Visit * Reason Onset Date Comments rs cancelled appt 03/10/2024 Encounter Details Date Type Department Care Team (Late Contact Info) Description 03/10/2024 Telephone [facility] [address] [place] [address] Henri Barroso [address] [place] [address] rs cancelled appt Social History Tobacco Use Types Packs/Day Years Used Date Smoking Tobacco: Never Smokeless Tobacco: Never Sex and Gender Information Value Date Recorded Sex Assigned at Male 01/16/2022 10:25 AM EDT Legal Sex Male 10:25 AM EDT Gender Identity Male 01/16/2022 10:25 AM EDT Sexual Orientation Choose not to disclose 2021 10:25 AM EDT documented as of this encounter Miscellaneous Notes * Telephone Encounter - Roro Silva - 03/10/2024 11:57 AM EST Patient would like to rs cancelled appts. He states he cancelled appts due to dental work extractions that he had and was having difficulty healing and did not want to continue treatment until he healed. He is feeling better now. I did explain that office would be the one to reach out due to the cancellations. Patient understood DR documented in this encounter Plan of Treatment Upcoming Encounters Date Type Department Care Team ([facility] Contact Info) Description 04/25/2024 11:00 AM EST Office Visit [facility] [address] [place] [address] Jimmy Lau, DMD [address] [place] [address] documented as of this encounter Visit Diagnoses Not on filedocumented in this encounter
--- OUTSIDE RECORDS SUMMARY | 2024-04-25 07:57 | XMS_ITS | Encounter Summary ---
Author Organization [facility] Address [address] [place] [address] [address] [place] [address] Care Team Providers Care Urology Physician Name Role Phone Unavailable Primary Care Provider Unavailabl e Reason for Visit * Reason Comments [place] Tooth #7, #8, #12 Encounter Details Date Type Department Care Team (Late st Contact Info) Description 04/09/2024 8:00 AM EST Office Visit [facility] ADULT D[facility]AL [address] [place] [address] Jimmy Lau DMD [address] [place] [address] Full coverage crown needed for tooth at risk for fracture (Primary Dx); Dental caries Social History Tobacco Use Types Packs/Day Years Used Date Smoking Tobacco: Never Smokeless Tobacco: Never Sex and Gender Information Value Date Recorded Sex Assigned at Male 01/16/2022 10:25 AM EDT Legal Sex Male 10:25 AM EDT Gender Identity Male 01/16/2022 10:25 AM EDT Sexual Orientation Choose not to disclose 2021 10:25 AM EDT documented as of this encounter Last Filed Vital Signs Vital Sign Reading Time Taken Comments Blood Pressure 130/62 04/09/2024 8:07 AM EST Pulse - - Temperature - - Respiratory Rate - - Oxygen Saturation - - Inhaled Oxygen Concentration - - Weight - - Height - - Body Mass Index - - documented in this encounter Progress Notes * Jimmy Lau DMD - 04/09/2024 8:00 AM EST Patient ID: Sridhar Lacy is a 63 y.o. male. Time Out: Timeout Date: 04/09/24, Timeout Time: 0815 (Tooth #7, #8, #12) Location: [facility] Tooth: #7, #8, and #12 Procedure: Yazdanism and [place] Verified the above with patient, medical assistant supervisor, and provider. Confirmed via patient's chart, intraorally and by radiographs. Hand Tier: not applicable Chief Complaint Patient presents with [place] Tooth #7, #8, #12 Medical Hx: Vitals: Blood pressure 130/62. Medications, Med Hx reviewed with patient and updated in chart. Consent Obtained: The risks, benefits, indications, potential complications, and alternatives were explained to the patient and informed consent was obtained with good understanding. Treatment Provided: Dental procedures in this visit D2700.1 - CROWN PREP 7,8 (Completed) Service provider: Jimmy Lau DMD Billing provider: Jimmy Lau DMD D2332 - RESTORATIVE - RESIN-BASED COMPOSITE RESTORATIONS - DIRECT - RESIN-BASED COMPOSITE - THREE SURFACES, ANTERIOR 7 DF(V)L (Completed) Service provider: Jimmy Lau DMD Billing provider: Jimmy Lau DMD D2330 - RESTORATIVE - RESIN-BASED COMPOSITE RESTORATIONS - DIRECT - RESIN-BASED COMPOSITE - ONE SURFACE, ANTERIOR 8 L (Completed) Service provider: Jimmy Lau DMD Billing provider: Jimmy Lau DMD D9450 - ADJUNCTIVE GENERAL SERVICES - PROFESSIONAL VISITS - CASE PRESENTATION, SUBSEQUENT TO DETAILED AND EXTENSIVE TREATMENT PLANNING (Completed) Service provider: Jimmy Lau DMD Billing provider: Jimmy Lau DMD Diagnosis: fractured and recurrent decay, full coverage crown indicated #7,8 Originally planned to do #12 as well, anesthetized but ran out of time and did not prep today. Willcomplete at future visit. Topical: 20% Benzocaine Anesthesia: 4% Septocaine (Articaine) w/ 1:200,000 epinephrine Number of Cartridges: 2 Injection Type: Buccal infiltration and Palatal infiltration Confirmed profound anesthesia. Isolation: high speed suction and cotton rolls Prep: All caries removed Matrix: size 000 cord used for retraction Etch: 37% Phosphoric Acid Etch Desensitizer: Gluma Liner/Base: None López: I-López Yazdanism Material: Voco Grandioso Flowable Shade: A3 Prepared tooth for: Ceramic crown Gingival Retraction: Cord, Size 000 and 00, soaked in hemodent, two cord technique. Cord removal verified prior to discharge Final Impression taken with: [employer] Light Body Bite Registration taken with: Polina VPS Provisional fabricated with: Paradigm Temp Material and cemented with: TempBond Shade: B2 Lab used: NDX Lab Due Date: 04/24 POI given to patient with instructions for homecare, to avoid sticky or crunchy foods, and to call if temp crown becomes dislodged. All questions answered. Patient tolerated procedure well, and was discharged alert, oriented, and in stable condition. NV: #7,8 crown labor delivery rn: Rocio Astudillo Dentist: Jimmy Lau DMD documented in this encounter Plan of Treatment Upcoming Encounters Date Type Department Care Team (Late st Contact Info) Description 04/25/2024 11:00 AM EST Office Visit [facility] ADULT D[facility]AL [address] [place] [address] Jimmy Lau DMD [address] [place] [address] Scheduled Orders Name Type Priority Associated Diagnoses Orde r Schedule DENTAL LAB FIXED Dental Routine Ordered: 04/09/2024 documented as of this encounter Procedures Procedure Name Priority Date/Time Associated Diagnosis Comments 7,8 CROWN PREP Routine 04/09/2024 8:00 AM EST Full coverage crown needed for tooth at risk for fracture Dental caries 7 DF(V)L RESTORATIVE - RESIN-BASED COMPOSITE RESTORATIONS - DIRECT - RESIN-BASED COMPOSITE - THREE SURFACES, ANTERIOR Routine 04/09/2024 8:00 AM EST Dental caries 8 L RESTORATIVE - RESIN-BASED COMPOSITE RESTORATIONS - DIRECT - RESIN-BASED COMPOSITE - ONE SURFACE, ANTERIOR Routine 04/09/2024 8:00 AM EST Dental caries ADJUNCTIVE GENERAL SERVICES - PROFESSIONAL VISITS - CASE PRESENTATION, SUBSEQUENT TO DETAILED AND EXTENSIVE TREATMENT PLANNING Routine 04/09/2024 8:00 AM EST Full coverage crown needed for tooth at risk for fracture Dental caries documented in this encounter Visit Diagnoses Diagnosis Full coverage crown needed for tooth at risk for fracture- Primary Dental caries Unspecified dental caries documented in this encounter
--- OUTSIDE RECORDS SUMMARY | 2024-04-25 07:57 | XMS_ITS | Continuity of Care Document ---
Author Organization [facility] Address [address] [place] [address] Care Team Providers Care Director Of Special Services Name Role Phone Gen Garcia APRN Unavailable [...] Diagnoses Date Provider Providers Copied on Encounter [facility], [address], [place], [place], [id number] , [facility] No Information 1 Jose Blevins. [address] [place] [address], [id number], . tel:[phone] Referring Provider: Gen Garcia, [address] [place] [address], [id number] . tel:[phone] OFFICE/OUTPA TIENT VISIT, [facility], [address], [place], [place], [id number] , [facility] back pain (chief complaint) Chronic pain syndromeRadicul opathy, lumbar regionPostlamin ectomy syndrome, not elsewhere classifiedLong term (current) use of opiate analgesic 1 Jose Blevins. [address] [place] [address], [id number], . tel:[phone] Referring Provider: Gen Garcia, [address] [place] [address], [phone] . tel:[phone] OFFICE/OUTPA TIENT VISIT, EST [facility], [address], [place], [place], [id number] , [facility] low back pain (chief complaint) Chronic pain syndromePostlam inectomy syndrome, not elsewhere classifiedRadic ulopathy, lumbar regionLong term (current) use of opiate analgesic 1 Jose Blevins. [address] [place] [address], [id number], . tel:[phone] Referring Provider: Gen Garcia, [address] [place] [address], [id number] . tel:[phone] OFFICE/OUTPA TIENT VISIT, [facility], [address], [place], [place], [id number] , [facility] No Information 1 Pérez Jung. [address] [place] [address], [id number], . tel:[phone] Referring Provider: Tori Aguayo, [address] [place] [address], [id number] . tel:[phone] [facility], [address], [place], [place], [id number] , [facility] back pain (chief complaint) Body mass index (BMI) 29.0-29.9, adultRadiculopa thy, lumbar regionPostlamin ectomy syndrome, not elsewhere classifiedLong term (current) use of opiate analgesic 1 Pérez Jung. [address] [place] [address], [id number], . tel:[phone] OFFICE/OUTPA TIENT VISIT, [facility], [address], [place], [place], [id number] , [facility] back pain (chief complaint) Body mass index (BMI) 29.0-29.9, adultRadiculopa thy, lumbar regionOther chcf (current) drug therapyLumbagoP ostlaminectomy syndrome, not elsewhere classifiedDepre ssion 1 Dede Valle. [address] [place] [address], [id number], . tel:[phone] Referring Provider: Tori Aguayo, [address] [place] [address], [id number] . tel:[phone] Family History Family Member Type Diagnosis Age At Onset No Information Payers Payer name Insurance type Covered libertarian ID Authorjareta april(s) [facility] Healthcare Plans Medicaid CI [id number] Social History Type Description Quantity Date [...] ordered Referral Referred To: Jett Barron [address] [facility]
[address] [place], [place], [phone] Ordered: Referrals: Clinical Psychology. Jett Barron. Evaluate [...] walking.The patient denies relieving factors. Additional information: [employer] brito lulu for imaging. Functional Status Date [...] be obtained in this office. 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 Related to Depression Patient had L-MRI w/ and w/out contrast from [facility] this month and will call to retrieve report. -Will also retrieve records from previous pain management physician in [place], Dr. Carlos Eduardo Baxter and PCP in [place] ,Dr. Isela Rmairez. -Also obtain records from PCP in [facility]- Dr. Sal Mendiola.Patient will call PCP for renewal of methadone prescription as he is aware we cannot prescribe any narcotics until UDS sample results.Will prescribe Cymbalta 30mg BID and patient advised to start with 1 capsule in the evening for 7 days, then increase to BID. Related to Radiculopathy, lumbar region States that he had p reviously discussed SCS with pain management in [place], but then moved to [place]. States that he has hardware to lumbar [...] abuse.CAGE questionnaire score: 0 Related to Other chcf (current) drug therapy Dietary management e ducation, guidance, and counseling Related to Body mass index [BMI] 29.0-29.9, adult Assessments Type Assessment Date No Information Patient Care Teams Name Effective Dates (start - stop) Status Members No Information
--- OUTSIDE RECORDS SUMMARY | 2024-04-25 07:57 | XMS_ITS | Patient Health Record ---
Author Organization [facility] Address [address] [facility] [place] [address] Care Team Providers Care Budget Accountant Name Role Phone Vania NEW, Harshad Primary Care Provider Unavail able Vika Mendez Unavailable [phone] Allergies No Known Allergies Results Component Value [...] Problem Status W/U Status Risk Notes Problem [id number] Type 2 diabetes mellitus with polyneuropathy (E11.42) Active confirmed Vital Signs Blood pressure diastolic 87 mm Hg 10/03/2023 Height 6ft2in in 10/03/2023 Blood pressure systolic 137 mm Hg 10/03/2023 Weight 228 lbs 10/03/2023 BMI 29.27 kg/m2 10/03/2023 Encounters Encounter Location Date Provider Diagnosis [facility] [place] [address] [place] [address] 10/03/2023 Vika Mendez Tinea pedis B35.3 ; [...] Provider Name:Vika covington, 10/07/2024 09:00:00 AM, [address] [place], [address], Insurance Providers Payer Name Payer Address Payer Phone Subscriber Number Group Number Insured Name Patient Relationship to Insured Coverage Start Date Coverage End Date [facility] [employer] Claims [address] [place] [phone] [id number] Sridhar Lacy Self - patient is the insured Medical (General) History Medical History History ICD Code Arthritis Depression Diabetes Surgical History Surgery Date(Month/Year)
--- OUTSIDE RECORDS SUMMARY | 2024-04-25 07:57 | XMS_ITS | Encounter Summary ---
Author Organization [facility] Address [address] [facility] 7t [place] [address] Care Team Providers Care Validation Specialist Name Role Phone Unavailable Primary Care Provider Unavailabl e Encounter Details Date Type Department Care Team (Latest Contact Info) Description 11/24/2021 Abstract [facility] CONVERSIONS Dental, Provider, DDS Social History Tobacco Use Types Packs/Day Years Used Date Smoking Tobacco: Never Assessed Sex and Gender Information Value Date Recorded Sex Assigned at Male 01/16/2022 10:25 AM EDT Legal Sex Male 10:25 AM EDT Gender Identity Male 01/16/2022 10:25 AM EDT Sexual Orientation Choose not to disclose 2021 10:25 AM EDT documented as of this encounter Plan of Treatment Upcoming Encounters Date Type Department Care Team (Late st Contact Info) Description 04/25/2024 11:00 AM EST Office Visit [facility] ADULT DENTAL [address] [place] [address] Jimmy Lau, TONY [address] [place] [address] documented as of this encounter Visit Diagnoses Not on filedocumented in this encounter
--- OUTSIDE RECORDS SUMMARY | 2024-04-25 07:57 | XMS_ITS | Clinical Summary ---
Author Organization [facility] Address [address] [facility] [address]t [place] [address] Care Team Providers Care Rate Manager Name Role Phone Unavailable Primary Care Provider Unavailabl e Allergies Active Allergy Reactions Criticality Noted Date Comments Ceralyte 70 04/09/2024 Medications methadone (Dolophine) 10 MG tablet TAKE 1 TABLET BY MOUTH TWICE DAILY FOR PAIN Active Tradjenta 5 MG tablet Take 5 mg by mouth Once per day. Active gabapentin (Neurontin) 300 MG capsule TAKE 1 CAPSULE BY MOUTH TWICE DAILY FOR PAIN Active atorvastatin (Lipitor) 40 MG tablet Take 40 mg by mouth at bedtime. 4 Active ibuprofen 600 MG tablet Take 1 tablet (600 mg) by mouth every 6 (six) hours if needed for mild pain for up to 20 doses. 20 tablet 4 Active chlorhexidine (Peridex) 0.12 % solution Swish 15 mL morning and night for 1 minute. Spit, do not swallow. Do not eat or drink for 30 minutes following use. 473 mL 4 Active Active Problems No known active problems Encounters Date Type Department Care Team Description 04/09/2024 8:00 AM EST Office Visit [facility] ADULT DENTAL [address] [place] [address] Jimmy Lau DMD Full coverage crown needed for tooth at risk for fracture (Primary Dx); Dental caries 04/01/2024 2:00 PM EST Office Visit [facility] ADULT DENTAL [address] [place] [address] Jimmy Lau DMD Full coverage crown needed for tooth at risk for fracture (Primary Dx) 03/10/2024 Telephone [facility] ADULT DENTAL [address] [place] [address] Henri Barroso cancelled appt 02/19/2024 9:00 AM EST Office Visit [facility] ADULT DENTAL [address] [place] [address] Yvon Smiley Dental calculus (Primary Dx); Partial edentulism, unspecified edentulism class 02/13/2024 2:00 PM EST Office Visit [facility] ADULT DENTAL [address] [place] [address] Keyla Griffiths DMD 02/06/2024 8:00 AM EST Office Visit [facility] ADULT DENTAL [address] [place] [address] Henri Barroso from Last 3 Months Social History Tobacco Use Types Packs/Day Years Used Date Smoking Tobacco: Never Smokeless Tobacco: Never Tobacco Cessation:Counseling Given: Not Answered Sex and Gender Information Value Date Recorded Sex Assigned at Male 01/16/2022 10:25 AM EDT Legal Sex Male 10:25 AM EDT Gender Identity Male 01/16/2022 10:25 AM EDT Sexual Orientation Choose not to disclose 2021 10:25 AM EDT Last Filed Vital Signs Vital Sign Reading Time Taken Comments Blood Pressure 130/62 04/09/2024 8:07 AM EST Pulse 65 02/19/2024 8:52 AM EST Temperature - - Respiratory Rate - - Oxygen Saturation - - Inhaled Oxygen Concentration - - Weight - - Height - - Body Mass Index - - Plan of Treatment Upcoming Encounters Date Type Department Care Team (Late st Contact Info) Description 04/25/2024 11:00 AM EST Office Visit [facility] ADULT DENTAL [address] [place] [address] Jimmy Lau, DMD [address] [place] [address] Health Maintenance Due Date Last Done Comments CT Colonography 1962 Colonoscopy 1962 Colorectal Cancer Screening 1962 Dental X-Ray: Full Mouth 1962 Depression Screening 1962 FIT DNA/Cologuard 1962 FIT 1962 FOBT 1962 HIV Screening 1962 Lipid Panel 1962 SDOH Screening 1962 Sigmoidoscopy 1962 Alcohol/Substance Use Screening 1974 Hepatitis C Screening 1980 Hepatitis B Vaccines (2 of 3 - 19+ 3-dose series) 11/11/2019 10/14/2019 Zoster Vaccines (2 of 2) 07/27/2021 06/01/2021 COVID-19 Vaccine (1 - season) 2023 Influenza Vaccine (#1) 2023 3, 03/18/2020, 01/03/2019, Additional history exists Dental Oral Exam 08/20/2024 02/19/2024 Dental Prophylaxis 08/20/2024 02/19/2024 Dental X-Ray: Bitewings 02/19/2025 02/19/2024 Tobacco Screening 04/09/2025 04/09/2024 DTaP/Tdap/Td Vaccines (2 - Td or Tdap) 05/28/2029 05/29/2019, 07/04/2012 RSV Patients and Patients Aged 60 years or older (1 - 1-dose 75+ series) 2037 Hepatitis A Vaccines Aged Out 10/14/2019 No long er eligible based on patient's age to complete this topic Pneumococcal Vaccine: 50+ Years Completed 06/01/2021, 12/24/2015 HIB Vaccines Aged Out No longer eligi ble based on patient's age to complete this topic HPV Vaccines Aged Out No longer eligi ble based on patient's age to complete this topic IPV Vaccines Aged Out No longer eligi ble based on patient's age to complete this topic Meningococcal Vaccine Aged Out No ramona yuko eligible based on patient's age to complete this topic RSV under 20 months Aged Out No longe r eligible based on patient's age to complete this topic Rotavirus Vaccines Aged Out No longer eligible based on patient's age to complete this topic Procedures Procedure Name Priority Date/Time Associated Diagnosis Comments ADJUNCTIVE GENERAL SERVICES - PROFESSIONAL VISITS - CASE PRESENTATION, SUBSEQUENT TO DETAILED AND EXTENSIVE TREATMENT PLANNING Routine 04/09/2024 8:00 AM EST Full coverage crown needed for tooth at risk for fracture Dental caries 8 L RESTORATIVE - RESIN-BASED COMPOSITE RESTORATIONS - DIRECT - RESIN-BASED COMPOSITE - ONE SURFACE, ANTERIOR Routine 04/09/2024 8:00 AM EST Dental caries 7 DF(V)L RESTORATIVE - RESIN-BASED COMPOSITE RESTORATIONS - DIRECT - RESIN-BASED COMPOSITE - THREE SURFACES, ANTERIOR Routine 04/09/2024 8:00 AM EST Dental caries 7,8 CROWN PREP Routine 04/09/2024 8:00 AM EST Full coverage crown needed for tooth at risk for fracture Dental caries ADJUNCTIVE GENERAL SERVICES - PROFESSIONAL VISITS - CASE PRESENTATION, SUBSEQUENT TO DETAILED AND EXTENSIVE TREATMENT PLANNING Routine 04/01/2024 2:00 PM EST Full coverage crown needed for tooth at risk for fracture INTRAORAL - PERIAPICAL FIRST RADIOGRAPHIC IMAGE Routine 04/01/2024 2:00 PM EST Full coverage crown needed for tooth at risk for fracture COMPREHENSIVE ORAL EVALUATION - NEW OR ESTABLISHED PATIENT Routine 02/19/2024 9:00 AM EST Partial edentulism, unspecified edentulism class INTRAORAL - PERIAPICAL EACH ADDITIONAL RADIOGRAPHIC IMAGE Routine 02/19/2024 9:00 AM EST Partial edentulism, unspecified edentulism class INTRAORAL - PERIAPICAL FIRST RADIOGRAPHIC IMAGE Routine 02/19/2024 9:00 AM EST Partial edentulism, unspecified edentulism class ORAL HYGIENE INSTRUCTIONS Routine 2023 9:00 AM EST Partial edentulism, unspecified edentulism class BITEWINGS - 4 RADIOGRAPHIC IMAGES Routine 02/19/2024 9:00 AM EST Partial edentulism, unspecified edentulism class Full PROPHYLAXIS - ADULT Routine 9:00 AM EST Partial edentulism, unspecified edentulism class ADJUNCTIVE GENERAL SERVICES - PROFESSIONAL VISITS - CASE PRESENTATION, SUBSEQUENT TO DETAILED AND EXTENSIVE TREATMENT PLANNING Routine 02/19/2024 9:00 AM EST Partial edentulism, unspecified edentulism class 7 L AMALGAM FILLING Routine 02/19/2024 1 2:00 AM EST 8 L AMALGAM FILLING Routine 02/19/2024 1 2:00 AM EST 9 PFM CROWN Routine 02/19/2024 12:00 AM EST 27 PFM CROWN Routine 02/19/2024 12:00 AM EST INTRAORAL - PERIAPICAL FIRST RADIOGRAPHIC IMAGE Routine 02/13/2024 2:00 PM EST LIMITED ORAL EVALUATION - PROBLEM FOCUSED Routine 02/13/2024 2:00 PM EST 20 EXTRACTION, ERUPTED TOOTH OR EXPOSED ROOT (ELEVATION AND/OR FORCEPS REMOVAL) Routine 02/06/2024 8:00 AM EST 19 EXTRACTION, ERUPTED TOOTH OR EXPOSED ROOT (ELEVATION AND/OR FORCEPS REMOVAL) Routine 02/06/2024 8:00 AM EST 18 EXTRACTION, ERUPTED TOOTH OR EXPOSED ROOT (ELEVATION AND/OR FORCEPS REMOVAL) Routine 02/06/2024 8:00 AM EST from Last 3 Months Insurance [facility]
--- OUTSIDE RECORDS SUMMARY | 2024-04-25 07:57 | XMS_ITS | Encounter Summary ---
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 Encounter Details Date Type Department Care Team (Late st Contact Info) Description 04/01/2024 2:00 PM EST Office Visit [facility] ADULT DENTAL [address] [place] [address] Jimmy Lau DMD [address] [place], [place] [id number] Full coverage crown needed for tooth at risk for fracture (Primary Dx) Social History Tobacco Use Types Packs/Day Years Used Date Smoking Tobacco: Never Smokeless Tobacco: Never Sex and Gender Information Value Date Recorded Sex Assigned at Male 01/16/2022 10:25 AM EDT Legal Sex Male 10:25 AM EDT Gender Identity Male 01/16/2022 10:25 AM EDT Sexual Orientation Choose not to disclose 2021 10:25 AM EDT documented as of this encounter Progress Notes * Jimmy Lau DMD - 04/01/2024 2:00 PM EST Dental procedures in this visit D0220 - INTRAORAL - PERIAPICAL FIRST RADIOGRAPHIC IMAGE (Completed) Service provider: Jimmy Lau DMD Billing provider: Jimmy Lau DMD [id number] - CASE PRESENTATION, DETAILED AND EXTENSIVE TREATMENT PLANNING (Completed) Service provider: Jimmy Lau DMD Billing provider: Jimmy Lau DMD Patient ID: Sridhar Lacy is a 63 y.o. male. Time Out: Timeout Date: 04/01/24, Timeout Time: 1405 (PA #12) Location: [facility] Tooth: #12 Procedure: X-rays Verified the above with patient, pharmaceutical assistant, and provider. Confirmed via patient's chart, intraorally and by radiographs. Table Assembler: not applicable Chief Complaint Patient presents with Xrays Patient presents today for periapical #12 Rocio MANCERA Medical Hx: Vitals: There were no vitals taken for this visit. PA taken and reviewed for #12 Core BU and crown advised for #12 due to large existing MOD orthodox and recurrent distal decay.Greater than 2/3 occlusal surface is restorative material. Patient tolerated procedure well. All questions answered. Dismissed in good condition. 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 Dentist: Jimmy Lau DMD documented in this encounter Plan of Treatment Upcoming Encounters Date Type Department Care Team (Late st Contact Info) Description 04/25/2024 11:00 AM EST Office Visit [facility] ADULT DENTAL [address] [place] [address] Jimmy Lau DMD [address] [place] [address] documented as of this encounter Procedures Procedure Name Priority Date/Time Associated Diagnosis Comments INTRAORAL - PERIAPICAL FIRST RADIOGRAPHIC IMAGE Routine 04/01/2024 2:00 PM EST Full coverage crown needed for tooth at risk for fracture ADJUNCTIVE GENERAL SERVICES - PROFESSIONAL VISITS - CASE PRESENTATION, SUBSEQUENT TO DETAILED AND EXTENSIVE TREATMENT PLANNING Routine 04/01/2024 2:00 PM EST Full coverage crown needed for tooth at risk for fracture documented in this encounter Visit Diagnoses Diagnosis Full coverage crown needed for tooth at risk for fracture- Primary documented in this encounter
--- OUTSIDE RECORDS SUMMARY | 2024-04-25 07:57 | XMS_ITS ---
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 Name Role Phone Vania NEW, Harshad Primary Care Provider Unavail able AgustinaFabio covingtonen Unavailable [phone] Allergies No Known Allergies REASON FOR VISIT [...] 024 Encounters Encounter Location Date Provider Diagnosis [facility] [address] [id number] 10/03/2023 Vika Mendez Tinea pedis B35.3 ; [...] Reason: Provider Name:Vika covington, 10/07/2024 09:00:00 AM, [address] [place] [address], [id number], Procedure Notes * Category Sub-Category Detail Notes Keratoma Treatment Parring or Cutting o f Benign Hyperkeratotic Lesion(s) 48305 ( 2-4 Lesions ) - The Benign hyperkeratotic lesions, as described above were pared, and/or cut utilizing a sterile 15 blade, tissue nippers, and/or dremel Progress Notes * Sridhar LACYDOB: 3 (63 yo M)Acc No.[id number]:10/03/2023 Progress Note Patient:?Sridhar Lacy Provider:?Vika Mendez DPM :1960???Age:63 Y???Sex:Male Santy e:10/03/2023 Address:[address] [place], [place] [id number] Pcp:Harshad Caro NP Subjective: * Chief Complaints: [...] Procedures:?Keratoma Treatment:?Parring or Cutting of Benign Hyperkeratotic Lesion(s)?29485 ( 2-4 Lesions ) - The Benign hyperkeratotic lesions, as described above were pared, and/or cut utilizing a sterile 15 blade, tissue nippers, and/or dremel.? * Procedure Codes:?21800 TRIM SKIN LESIONS, 2 TO 4, Modifiers: [...] Provider:?Vika Mendez DPM Date:? Generated for Holly voss/Jennifer/Angélicaitting on:?04/25/2024 07:56 AM EST History and Physical Notes * HPI [...]
--- NOTE | 2024-04-25 08:14 | A.OFFVIS_ITS ---
Vital Signs 3 04/25/24 08:43 Height 6 ft 2 in Weight 226 lb 8 oz BMI 29.1 BP 160/91 H Blood Pressure Location Rt brachial Position Sitting Pulse 109 H Pulse Source Pulse Oximeter Intake Visit Reasons: PILL COUNT/ random UDS Intake Note: Sridhar comes in today for a pill count to methadone, patient should have 46 tablets and presents with 43 tablets which he last took today 04/25/24 at 7:45am. Pain today 10. Unfortunately Sridhar is 1 tablet over the allowed limit to be short, which will result in a suspension from the opioid program. Called and spoke to Stan at [facility] pharmacy and confirmed patient picked up Methadone on 04/18/24 which is concordant with [facility] machine pecan picker date. Stan states the medication was filled 04/17/24 but not picked up until 04/18/24. 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 Accompanied by: Self / Same As Patient Allergies fentanyl Allergy (Intermediate, Verified 04/25/24 08:34) itching morphine [Amber] Allergy (Intermediate, Verified 04/25/24 08:34) itch Iodinated Contrast Media [IV Dye, Iodine Containing] Allergy (Mild, Verified 04/25/24 08:34) DIFFICULTY BREATHING,VOMITING amoxicillin [From Augmentin] Adverse Reaction (Intermediate, Verified 04/25/24 08:34) Diarrhea clavulanic acid [From Augmentin] Adverse Reaction (Intermediate, Verified 04/25/24 08:34) Diarrhea metformin Adverse Reaction (Intermediate, Verified 04/25/24 08:34) stomach pain HPI Comments Details: Patient presents today for a methadone pill count. He is supposed to have #46 pills, in his possession has #43 pills. Unfortunately, this demonstrates an irresponsible attitude towards his medication regimen. His prescription is for two pills per day, therefore he is short 1.5 days. Patient's was adamant that he filled prescription on 04/17/24 but his pharmacy provided us with receipt for machine pecan picker date for 04/18/24. Patient previously was given a pass due to short pill count. He admitted taking extra medication for flare up in his back. Patient is also aware that he can receive alternative treatment options, such as therapeutic ERNST injection, SCS or ITDD trial. He declined interventional treatments for chronic back pain with spinal stenosis and declined back surgery evaluation. Denies any recent cough, cold, infection, fever or any significant changes in medical history since last office visit. [facility] Medical History Screening PSA (prostate specific antigen) Pre-op examination Colon cancer screening Left otitis media Weight loss, abnormal Nausea Irritable bowel syndrome with diarrhea Normal routine history and physical examination Low back pain Laboratory tests ordered as part of a complete physical exam (CPE) BPH (benign prostatic hyperplasia) Poison derek dermatitis Hx of iron deficiency anemia Lumbar spondylosis Iron deficiency anemia Normal physical exam Anemia Sepsis Acute respiratory failure with hypoxia Pneumonia History of COVID-19 History of 2019 novel coronavirus disease (COVID-19) High cholesterol Arthritis Diabetes Contact dermatitis Narcotic drug use DMII (diabetes mellitus, type 2) Elevated liver transaminase level Lumbar radiculopathy, chronic Lumbar spinal stenosis Cervical radiculopathy Lumbar post-laminectomy syndrome Surgical History History of esophagogastroduodenoscopy (EGD) H/O colonoscopy History of elbow surgery History of lumbar fusion History of cholecystectomy Family History Father Liver problem Alcoholism Substance use disorder Mother No problems noted. Brother CAD (coronary artery disease) Social History Household Members: Family Housing: House Do you presently have visiting nurse or other home services: No Alcohol intake: never Patient Tobacco Use Status: Former Tobacco user Cigarette Packs Per Day: 0.5 Cigarettes Per Day: 10 Years Smoked: 10 e-Cigarette/Vaping Use: Never Used Second Hand Smoke Exposure: No service: No Current occupational status: disabled Current occupational exposures/hazards: No Cognitive needs: No (cane) Hearing needs: No Vision needs: Yes (reading glasses) Review of Systems Const All systems reviewed & are unremarkable except as noted in HPI and below Physical Exam Vital Signs: Last Vital Signs Pulse 109 H 04/25/24 08:43 BP 160/91 H 04/25/24 08:43 BMI result Body Mass Index 29.1 On exam today: Alert and oriented. Mood and affect appropriate. Follows and participates in conversation appropriately. Respiratory effort is unlabored. No cough. Able to transition from sit to stand unassisted. Able to stand and walk on toes and heels but reports occasional unsteadiness on the left due to pain. Extrem General: Yes capillary refill normal, Yes no clubbing, cyanosis or edema and Yes no calf tenderness Psych Appearance: grossly normal and well kempt Mental Status: mental status grossly normal Speech and movement: Normal speech and movement present and Clear speech present Affect: normal affect Attitude: cooperative Thought process: Normal thought process present Thought content: Normal thought content present, suicidality (none), no hallucinations and No Depressive thoughts present Insight: Good insight present (Psych) Judgement: Good judgement present (Psych) Results Reviewed Results Reviewed: XR LUMBOSACRAL SPINE 11/25/23 CLINICAL INFORMATION: Back pain. Injury. COMPARISON: Lumbar spine x-rays of 10/13/2021 FINDINGS: There are 5 lumbar-type nonrib-bearing vertebrae. Minimal anterior wedge compression of L1 is a stable finding. Remainder of the vertebral body heights are maintained. Stable mild grade 1 anterolisthesis of L4 over L5. Intervertebral well incorporated disc spacer is redemonstrated at L5-S1. Facet arthropathy at L4-5 and L5-S1. Multilevel small anterolateral endplate osteophytes are noted. No suspicious lytic or blastic osseous lesions. Postcholecystectomy clips in the right upper abdominal quadrant. Limited evaluation of the sacroiliac joints are unremarkable. IMPRESSION: No evidence of acute compression fracture or traumatic subluxation. Essentially, no significant interval change is noted in the appearance of the lumbar spine compared to previous x-ray of 10/13/2021. MR LUMBAR SPINE WITHOUT CONTRAST 01/30/23 CLINICAL INFORMATION: Low back pain. Bilateral leg pain, worse on the left side. Prior surgery. COMPARISON: MRI dated 12/08/2019. TECHNIQUE: Multiplanar, multisequence imaging was obtained. FINDINGS: VERTEBRAL BODIES AND PARASPINAL STRUCTURES: An interbody prosthesis is again visible at the L5-S1 level with a solid arthrodesis. Chronic fatty marrow degenerative endplate changes again visible at this level as well. The paraspinal soft tissues appear normal. There are [id number] degenerative changes of the sacroiliac joints. There is edema in the pedicles and posterior elements at the L4-L5 level which was not present on prior imaging and may be stress-related in etiology or reactive to severity of facet arthrosis. No compression fractures are seen. A mild anterolisthesis is again evident at the L4-L5 level as well. CONUS MEDULLARIS AND CAUDA EQUINE: The distal cord, conus tip, and cauda equina nerve roots appear normal. SPINAL LEVELS: L1-L2: No central canal stenosis or foraminal narrowing. No significant disc pathology. L2-L3: Well-hydrated normal appearance of the disc without central canal stenosis or foraminal narrowing. L3-L4: Slight posterior subluxation and broad-based disc bulge with a shallow central disc protrusion and hypertrophic facet arthropathy. Disc protrusion is slightly decreased in size compared to prior imaging with diminished mass effect upon the thecal sac. Mild central canal stenosis and mild bilateral foraminal narrowing. L4-L5: Mild anterolisthesis and broad-based disc bulge noted. Previous central disc protrusion has resorbed. Infolding and thickening of the ligamentum flavum with progressed advanced facet arthropathy contributes to moderate central canal stenosis with mild foraminal narrowing. Marrow edema in the pedicles and posterior elements. L5-S1: Post interbody fusion changes with a left-sided laminectomy defect. No central canal stenosis. Mild left foraminal narrowing is stable IMPRESSION: 1. Previous central disc protrusion at the L4-L5 level has resorbed. Stable mild anterolisthesis and slightly worsened advanced facet arthropathy with moderate central canal stenosis and mild foraminal narrowing. New edema in the pedicles and posterior elements at this level, presumably reactive/stress-related in etiology. 2. Status post interbody fusion with a solid arthrodesis at the L5-S1 level, as on prior imaging. 3. Shallow central disc protrusion at the L3-L4 level is slightly decreased in size with decreased mass effect upon the thecal sac. Mild central canal stenosis and foraminal narrowing. CT ABDOMEN AND PELVIS WITHOUT CONTRAST 12/23/23 CLINICAL INFORMATION: Right-sided flank pain Mild diffuse degenerative changes of the spine. IMPRESSION: -6 mm nonobstructing left renal stone. No hydronephrosis. -Diffusely decreased liver attenuation suggesting hepatic steatosis. Correlation with liver enzymes recommended. Assessment & Plan Assessment & Plan (1) Lumbar radiculopathy, chronic: Code(s): M54.16 - Radiculopathy, lumbar region Category: Medical (2) Lumbar post-laminectomy syndrome: Code(s): M96.1 - Postlaminectomy syndrome, not elsewhere classified Category: Medical (3) Opioid contract exists: Code(s): Z79.891 - supervisor intermediates (current) use of opiate analgesic Category: Medical (4) Chronic pain syndrome: Code(s): G89.4 - Chronic pain syndrome Category: Medical (5) Lumbar spondylosis: Code(s): M47.816 - Spondylosis without myelopathy or radiculopathy, lumbar region Category: Medical Plan Unfortunately, the patient?s pill count today was inaccurate for methadone pill count which will result in a suspension. Given his risk is low, he will be suspended for 6 months. Patient is aware that he will not be eligible for medical management through this office until 09/21/24. Patient is also aware that he can receive alternative treatment options, such as a SCS or ITDD trials or injections. Patient has expressed frustration with the guidelines and opioid contract but unfortunately his pill count was short for over 1 day. I will send in a compassionate prescription for four weeks for methadone in which he will need to taper himself off or reach out to his PCP to take over prescribing for 6 months. Discussed treatments for potential withdrawal symptoms. All questions were answered and the patient agreed with the plan. Follow up as needed. Medications: Changed 2 From methadone Partial Fill upon patient request. 10 mg PO BID 30 days 60 tabs 0RF pain MDD 2 M47.816 - Spondylosis without myelopathy or radiculopathy, lumbar region, M48.061 - Spinal stenosis, lumbar region without neurogenic claudication, M54.16 - Radiculopathy, lumbar region, M96.1 - Postlaminectomy syndrome, not elsewhere classified To methadone Please use this prescription to taper off medication, 4 weeks compassionate prescription. 10 mg PO BID 30 days 60 tabs 0RF pain MDD 2 M47.816 - Spondylosis without myelopathy or radiculopathy, lumbar region, M48.061 - Spinal stenosis, lumbar region without neurogenic claudication, M54.16 - Radiculopathy, lumbar region, M96.1 - Postlaminectomy syndrome, not elsewhere classified Coding Level of Care Code Est Pt Level 4 (44830) Diagnoses Lumbar radiculopathy, chronic M54.16 Lumbar post-laminectomy syndrome M96.1 Opioid contract exists Z79.891 Chronic pain syndrome G89.4 Lumbar spondylosis M47.816
== END | disposition home or self-care (01) ==
PROVIDERS: PCP Nurse Practitioner Family; Visit Provider Nurse Practitioner Family
CPT/HCPCS: 99214

== ENCOUNTER → 2024-04-25 07:54 | Outpatient (BNVA) | payer OTHER, SELFPAY | PROVIDERS: PCP Nurse Practitioner Family; Visit Provider Nurse Practitioner Family | DX: M54.16 Radiculopathy, lumbar region (principal); M96.1 Postlaminectomy syndrome, not elsewhere classified; M48.061 Spinal stenosis, lumbar region without neurogenic claudication; M47.816 Spondylosis without myelopathy or radiculopathy, lumbar region; G89.4 Chronic pain syndrome; Z51.81 Encounter for therapeutic drug level monitoring; Z79.891 Long term (current) use of opiate analgesic | CPT/HCPCS: 99212 ==

== ENCOUNTER 2024-04-29 10:24 | Outpatient (AMB) | payer OTHER, SELFPAY ==
--- NOTE | 2024-04-29 10:49 | MHC.PC.OV ---
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 Allergies fentanyl Allergy (Intermediate, Verified 04/29/24 11:30) itching morphine [Amber] Allergy (Intermediate, Verified 04/29/24 11:30) itch Iodinated Contrast Media [IV Dye, Iodine Containing] Allergy (Mild, Verified 04/29/24 11:30) DIFFICULTY BREATHING,VOMITING amoxicillin [From Augmentin] Adverse Reaction (Intermediate, Verified 04/29/24 11:30) Diarrhea clavulanic acid [From Augmentin] Adverse Reaction (Intermediate, Verified 04/29/24 11:30) Diarrhea metformin Adverse Reaction (Intermediate, Verified 04/29/24 11:30) stomach pain Medication List - Last Reconciled 04/29/24 by Eldon Caro CNP acetaminophen (Tylenol Extra Strength) 500 mg PO Q6H PRN blood sugar diagnostic (FreeStyle Lite Strips) POC 4 times daily blood-glucose meter (FreeStyle Lite Meter kit) check blood sugars daily and pern cyclobenzaprine 10 mg PO TID PRN 5 days fenofibrate 54 mg PO DAILY 90 days fluticasone propionate 50 mcg/actuation (Flonase Allergy Relief) 1 spray intranasal Q12H gabapentin 300 mg PO BID 90 days insulin syringe-needle U-100 (Advocate Syringes) As directed lancets (FreeStyle Lancets) POC testing 4 times daily lidocaine 5% (Lidoderm) 1 patch topical DAILY PRN MDD remove after 12 hours linagliptin (Tradjenta) 5 mg PO DAILY meloxicam 15 mg PO DAILY PRN 30 days methadone 10 mg PO BID 30 days MDD 2 naloxone 4 mg/actuation (Narcan) 4 mg intranasal Q2M PRN omeprazole 40 mg PO DAILY safety needles (BD Eclipse Luer-Pilo) As directed for biweekly injection (injecting needle)- 2 per month sertraline 25 mg PO DAILY syringe with cannula,disposabl As directed for biweekly Testosterone injection- 2 per month syringe with needle (BD Luer-Pilo Syringe) As directed testosterone 2 pumps topical DAILY 30 days Tobacco use date assessed: 04/29/24 Dental Screening Dental Screen Date: 04/29/24 Did you have a dental visit in the last 12 months?: Yes Did you have a dental problem in the last 6 months where you did not have access to dental care?: No Was dental information given to patient?: Patient has dentist HPI HPI Comments History of Present Illness Details 63-year-old male presents for diabetes and hyperlipidemia follow-up He admits to taking his medications as prescribed without adverse reactions He notes that he has been making healthy lifestyle changes. However, he occasionally eats sweets such cakes He offers no complaints and denies acute symptoms at this time He did not get lipid panel blood work done for this visit as planned. He is followed by [facility] pain management. His methadone pill count was inaccurate on his last visit on 04/25/24; he was therefore suspended x 6 months. [facility] Medical History Screening PSA (prostate specific antigen) Pre-op examination Colon cancer screening Left otitis media Weight loss, abnormal Nausea Irritable bowel syndrome with diarrhea Normal routine history and physical examination Low back pain Laboratory tests ordered as part of a complete physical exam (CPE) BPH (benign prostatic hyperplasia) Poison derek dermatitis Hx of iron deficiency anemia Lumbar spondylosis Iron deficiency anemia Normal physical exam Anemia Sepsis Acute respiratory failure with hypoxia Pneumonia History of COVID-19 History of 2019 novel coronavirus disease (COVID-19) High cholesterol Arthritis Diabetes Contact dermatitis Narcotic drug use DMII (diabetes mellitus, type 2) Elevated liver transaminase level Lumbar radiculopathy, chronic Lumbar spinal stenosis Cervical radiculopathy Lumbar post-laminectomy syndrome Surgical History History of esophagogastroduodenoscopy (EGD) H/O colonoscopy History of elbow surgery History of lumbar fusion History of cholecystectomy Family History Father Liver problem Alcoholism Substance use disorder Mother No problems noted. Brother CAD (coronary artery disease) Social History Household Members: Family Housing: House Do you presently have visiting nurse or other home services: No Alcohol intake: never Patient Tobacco Use Status: Former Tobacco user Cigarette Packs Per Day: 0.5 Cigarettes Per Day: 10 Years Smoked: 10 e-Cigarette/Vaping Use: Never Used Second Hand Smoke Exposure: No service: No Current occupational status: disabled Current occupational exposures/hazards: No Cognitive needs: No (cane) Hearing needs: No Vision needs: Yes (reading glasses) Questionnaire PHQ-9 Over the last 2 weeks, how often have you been bothered by any of the following problems? 3. Trouble falling or staying asleep, or sleeping too much: more than half the days 4. Feeling tired or having little energy: more than half the days Source: Developed by Drs. Enrico Chiang, Kassandra Neville, Farhat Pandey and colleagues, with an educational mann from [employer]. Thrive Questionnaire Date Thrive assessed: 04/29/24 NICOLE-7 AMB Questionnaire NICOLE-7 Date NICOLE - 7 assessed: 01/16/24 Source: Developed by Drs. Enrico Chiang, Kassandra Neville, Farhat Pandey and colleagues, with an educational mann from [employer]. Review of Systems Const Details: Const Denies chills, Denies fatigue, Denies fever(s), Denies headache(s) and Denies weakness ENT Denies dizziness and Denies headache(s) Card Denies chest pain, Denies lightheadedness, Denies dyspnea and Denies other (Palpitations) Resp Denies cough, Denies dyspnea, Denies wheezing and Denies other ( shortness of breath) GI Denies abdominal pain, Denies melena, Denies hematochezia, Denies change in bowel habits, Denies dyspepsia and Denies nausea Denies hematuria and Denies dysuria Musc Denies abnormal gait, Denies myalgias, Denies arthralgias, Denies numbness and Denies tingling Skin/Breast Denies rash, Denies unusual bruising and Denies wounds Neuro Denies abnormal gait, Denies dizziness, Denies headache(s), Denies memory loss, Denies numbness, Denies Sensory deficit (Neuro), Denies tingling and Denies weakness Psych Denies anxiety, Denies depression, Denies memory loss Endo Denies cold intolerance, Denies fatigue, Denies heat intolerance, Denies polydipsia and Denies polyuria Aller/Immun Denies wheezing Physical exam (Primary Care) Vital Signs: Last Vital Signs Temp 97.9 F 04/29/24 11:04 Pulse 85 04/29/24 11:04 Resp 16 04/29/24 11:04 BP 126/68 04/29/24 11:04 Pulse Ox 96 04/29/24 11:04 Oxygen Delivery Method Room Air 04/29/24 11:04 BMI result Body Mass Index 29.4 Tobacco/Smoking Status: Tobacco use Status Tobacco use date assessed 04/29/24 04/29/24 11:05 Patient Tobacco Use Status Former Tobacco user 04/29/24 10:51 e-Cigarette/Vaping Use Never Used 04/29/24 10:51 Thrive Assessment: Date of Thrive Assessment Date Thrive assessed 04/29/24 04/29/24 10:51 Const Other: General: no acute distress and well developed Nutritional Appearance: well nourished Orientation/consciousness: patient oriented x3 HENMT Head: Yes normocephalic and Yes atraumatic Eyes General: appearance normal, both eyes and all related structures Pupils: Equal, round and reactive pupils present EOM: EOMs intact bilaterally Resp Effort & Inspection: normal respiratory effort Auscultation: clear to auscultation bilaterally Cardio Rate: regular rate Rhythm: regular rhythm Heart sounds: S1 normal heart sound present, S2 normal heart sound present, no gallops, no murmurs and no rubs GI Palpation (GI): No Abdominal aortic bruit present, Soft to palpation, nontender, No hepatosplenomegaly present and No Rebound tenderness present Auscultation: normal bowel sounds General: Yes no CVA tenderness Back/Spine/Pelvis Back: no CVA tenderness Cervical Spine: cervical ROM normal and No Cervical spine tenderness Thoracic/Lumbar Spine: thoraco-lumbar ROM normal, No pain with thoraco-lumbar ROM, No thoracic spinal tenderness and No lumbar spinal tenderness Extrem General: Yes normal to inspection, No edema and No calf tenderness Skin General: warm and dry. Normal skin color. Normal skin turgor Neuro General: patient oriented x3, gait normal and no focal neuro deficit Cranial nerves: Yes Equal, round and reactive pupils present Cognition (Neuro): normal cognition Gait exam (Neuro): Normal gait present Sensory Exam: No Sensory deficit (Neuro) Psych Appearance: grossly normal Affect: normal affect Attitude: cooperative Thought process: Normal thought process present Results AMB Hemoglobin A1c AMB Hemoglobin A1c 7.1 % Last Edit by Melvi Lynne on 04/29/24 11:41 Results Reviewed Results Reviewed: Laboratory Last Values Hgb A1c (Clinic) 7.1 % (4.0-6.0) H 04/29/24 11:29 Coding Level of Care Code Est Pt Level 4 (11193) Diagnoses DMII (diabetes mellitus, type 2) E11.9 Hyperlipidemia E78.5 Chronic pain syndrome G89.4 Assessment & Plan Assessment & Plan (1) DMII (diabetes mellitus, type 2): Code(s): E11.9 - Type 2 diabetes mellitus without complications Category: Medical Plan: A1c today 7.1%, slightly above goal of less than 7.0%. Previous A1c was 6.8%. Continue to take Tradjenta 5mg daily. ADA diet and routine exercise encouraged. Check fasting and p.m. glucose daily, record readings, and bring to next appointment. Follow-up in 1 month for an extended physical exam or sooner with symptoms or concerns. Verbalized understanding and agreed with treatment plan. (2) Hyperlipidemia: Code(s): E78.5 - Hyperlipidemia, unspecified Category: Medical Plan: He did not get lipid panel blood work done for this visit as planned. Continue current treatment regimen. Perform fast lipid panel blood work a few days before next visit. Verbalized understanding and agreed with the plan. (3) Chronic pain syndrome: Code(s): G89.4 - Chronic pain syndrome Category: Medical Plan: Followed by [facility] pain management. He was recently suspended from the methadone program due to inaccurate pill count. Continue current treatment regimen. Follow-up with worsening or new symptoms. Verbalized understanding and agreed with treatment plan. Orders: Orders AMB Hemoglobin A1c Today Z13.9 - Encounter for screening, unspecified
[2024-04-29 11:04] VITALS: BP 126/68; PULSE 85; RESP 16; TEMP 36.6; O2SAT 96; BMI 29.4
== END 2024-04-29 11:44 | disposition home or self-care (01) ==
PROVIDERS: PCP Nurse Practitioner Family; Visit Provider Nurse Practitioner Family
DX: E11.9 Type 2 diabetes mellitus without complications (principal); E78.5 Hyperlipidemia, unspecified; G89.4 Chronic pain syndrome; Z13.9 Encounter for screening, unspecified

== ENCOUNTER → 2024-04-29 10:24 | Outpatient (BNVA) | payer OTHER, SELFPAY | PROVIDERS: PCP Nurse Practitioner Family; Visit Provider Nurse Practitioner Family | DX: E11.9 Type 2 diabetes mellitus without complications (principal); E78.5 Hyperlipidemia, unspecified; G89.4 Chronic pain syndrome | CPT/HCPCS: 83036; 99212 ==

== ENCOUNTER 2024-05-05 07:54 | Emergency (ER) | payer OTHER, SELFPAY ==
--- NOTE | ~2024-05-05 | XR_ITS ---
CLINICAL HISTORY: pain after shoveling 3 views lumbar spine Comparison: CR/SR - XR LUMBAR SPINE 2-3V - 11/25/23 12:08 EDT Findings: Unchanged alignment. 7 mm anterolisthesis of L4 on L5 likely due to facet hypertrophy. Prosthetic disc with fusion at L5-S1. No acute appearing vertebral body height loss. Multilevel disc height loss with reactive endplate changes. IMPRESSION: Multilevel degenerative changes. No acute findings. This document has been electronically signed by: Patti Malin MD on 05/05/2024 08:28:28
[2024-05-05 08:00] VITALS: BP 134/81; PULSE 116; RESP 20; TEMP 36.6; O2SAT 96; BMI 28.6
--- NOTE | 2024-05-05 08:09 | ED_ITS ---
HPI - General Adult General Chief complaint: Back Pain/Injury Stated complaint: Back Pain Injury 05/04/24 Time Seen by Provider: 05/05/24 08:07 Source: patient, RN notes reviewed and old records reviewed Mode of arrival: ambulatory Limitations: no limitations History of Present Illness ED Provider: Martha HPI narrative: Patient is a 63-year-old male with history of IBS, anemia, arthritis, diabetes, lumbar post laminectomy syndrome presenting to the emergency department with complaint of acute on chronic lower back pain since yesterday. Symptoms began after shoveling. Radiation of pain to left lateral mid thigh, but patient states this is baseline for him. Denies fall or other trauma. Denies saddle anesthesia, bowel or bladder incontinence. Denies fevers. Denies weakness, n umbness, tingling to lower extremities. Took ibuprofen and used lidocaine patch with some relief. Concerned as he is traveling to [place] tomorrow and feels the flight will exacerbate his symptoms. MD complaint: low back pain Onset (ago): hour(s) Location: back Radiation: extremity Severity: severe and similar to prior episodes Quality: aching Related Data Home Medications ?Medication ?Instructions ?Recorded ?Confirmed syringe with needle 3 mL 18 x 1 #100 ea 04/26/23 04/29/24 1/2 (BD Luer-Pilo Syringe) sertraline 25 mg tablet 25 mg PO DAILY 07/05/23 04/29/24 Previous Rx's ?Medication ?Instructions ?Recorded blood-glucose meter (FreeStyle #1 ea 06/06/21 Lite Meter kit) blood sugar diagnostic (FreeStyle #100 ea 03/23/23 Lite Strips) lancets 28 gauge (FreeStyle #100 ea 03/23/23 Lancets) insulin syringe-needle U-100 1 mL #10 ea 03/27/23 30 gauge x 5/16 (Advocate Syringes) safety needles 25 gauge x 1 1/2 #2 ea 04/11/23 (BD Eclipse Luer-Pilo) syringe with cannula,disposabl 3 #2 ea 04/17/23 mL 18 x 1 gabapentin 300 mg capsule 300 mg PO BID pain 90 days #180 05/31/23 caps fluticasone propionate 50 1 spray intranasal Q12H #16 grams 07/02/23 mcg/actuation nasal spray,suspension (Flonase Allergy Relief) naloxone 4 mg/actuation nasal 4 mg intranasal Q2M PRN opioid 07/04/23 spray (Narcan) overdose #2 ea fenofibrate 54 mg tablet 54 mg PO DAILY 90 days #90 tabs 10/05/23 acetaminophen 500 mg tablet 500 mg PO Q6H PRN fever or pain 11/25/23 (Tylenol Extra Strength) #14 tabs lidocaine 5 % topical patch 1 patch topical DAILY PRN pain #30 11/25/23 (Lidoderm) ea meloxicam 15 mg tablet 15 mg PO DAILY PRN pain 30 days 11/26/23 #30 tabs cyclobenzaprine 10 mg tablet 10 mg PO TID PRN muscle spasm 5 12/23/23 days #15 tabs linagliptin 5 mg tablet (Tradjenta) 5 mg PO DAILY #90 tabs 01/16/24 omeprazole 40 mg capsule,delayed 40 mg PO DAILY #90 caps 03/20/24 release testosterone 2 pump topical DAILY 30 days #75 03/24/24 grams methadone 10 mg tablet 10 mg PO BID pain 30 days #60 tabs 04/25/24 cyclobenzaprine 10 mg tablet 10 mg PO TID PRN muscle spasm #14 05/05/24 tabs lidocaine 5 % topical patch 1 patch topical DAILY #15 ea 05/05/24 Allergies Allergy/AdvReac Type Severity Reaction Status Date / Time fentanyl Allergy Intermediate itching Verified 05/05/24 08:04 morphine [Amber] Allergy Intermediate itch Verified 05/05/24 08:04 Iodinated Contrast Media Allergy Mild DIFFICULTY Verified 05/05/24 08:04 [IV Dye, Iodine Containing] BREATHING,VOMITING amoxicillin [From Augmentin] AdvReac Intermediate Diarrhea Verified 05/05/24 08:04 clavulanic acid AdvReac Intermediate Diarrhea Verified 05/05/24 08:04 [From Augmentin] metformin AdvReac Intermediate stomach Verified 05/05/24 08:04 pain Review of Systems Review of Systems: As per HPI Yes all other systems are reviewed and are negative Constitutional: Constitutional: Reports as per HPI PENDING SALE TO [facility] Past Medical History Medical History Screening PSA (prostate specific antigen) Pre-op examination Colon cancer screening Left otitis media Weight loss, abnormal Nausea Irritable bowel syndrome with diarrhea Normal routine history and physical examination Low back pain Laboratory tests ordered as part of a complete physical exam (CPE) BPH (benign prostatic hyperplasia) Poison derek dermatitis Hx of iron deficiency anemia Lumbar spondylosis Iron deficiency anemia Normal physical exam Anemia Sepsis Acute respiratory failure with hypoxia Pneumonia History of COVID-19 History of 2019 novel coronavirus disease (COVID-19) High cholesterol Arthritis Diabetes Contact dermatitis Narcotic drug use DMII (diabetes mellitus, type 2) Elevated liver transaminase level Lumbar radiculopathy, chronic Lumbar spinal stenosis Cervical radiculopathy Lumbar post-laminectomy syndrome Surgical History History of esophagogastroduodenoscopy (EGD) H/O colonoscopy History of elbow surgery History of lumbar fusion History of cholecystectomy Family History Family History Father Liver problem Alcoholism Substance use disorder Mother No problems noted. Brother CAD (coronary artery disease) Social History Social History Household Members: Family Housing: House Do you presently have visiting nurse or other home services: No Alcohol intake: never Patient Tobacco Use Status: Former Tobacco user Cigarette Packs Per Day: 0.5 Cigarettes Per Day: 10 Years Smoked: 10 e-Cigarette/Vaping Use: Never Used Second Hand Smoke Exposure: No Advance Directives: No Advance Directives Information Provided: Yes service: No Current occupational status: disabled Current occupational exposures/hazards: No Cognitive needs: No (cane) Hearing needs: No Vision needs: Yes (reading glasses) Physical Exam ED Vital Signs: Vital Signs - 24 hr 05/05/24 08:00 Temperature 97.8 F Pulse Rate 116 H Respiratory Rate 20 Blood Pressure 134/81 Pulse Oximetry 96 Oxygen Delivery Method Room Air BMI result Body Mass Index 28.6 Vital signs have been reviewed and appear to be correct. Blood pressure normal. Heart rate slightly tachycardic. Respiratory rate normal. Temperature normal. Oxygen saturation normal. Const General: cooperative, healthy appearing and no acute distress Orientation/consciousness: oriented to person, oriented to place, oriented to time and patient oriented x3 Limitations: no limitations HENMT Head: Yes normocephalic and Yes atraumatic Ears: external ears normal General nose exam: Normal external nose present Face and sinus: Yes face symmetric Mouth: oropharynx normal and moist mucous membranes Throat: Yes uvula midline Eyes Pupils: Equal, round and reactive pupils present Neck Neck: Yes normal visual inspection, Yes no meningeal signs and Yes supple Resp Effort & Inspection: normal respiratory effort and able to speak in complete sentences Auscultation: clear to auscultation bilaterally Cardio Rate: regular rate Rhythm: regular rhythm Heart sounds: S1 normal heart sound present and S2 normal heart sound present GI Palpation (GI): Soft to palpation and nontender Auscultation: normoactive bowel sounds General: Yes no CVA tenderness Back/Spine/Pelvis Back: no CVA tenderness Thoracic/Lumbar Spine: thoracic and lumbar spine normal to inspection, thoraco- lumbar ROM normal, pain with thoraco-lumbar ROM, paraspinal muscle tenderness on the left in the mid lumbar, No thoracic spinal tenderness and No lumbar spinal tenderness Sacroiliac joints: on the left tender to palpation Skin General skin exam: elasticity normal and turgor normal Neuro General: oriented to person, oriented to place, oriented to time, patient oriented x3, gait normal, tone normal, moves all extremities, Normal light touch and pain sensation, no meningeal signs, no focal motor deficits, CN's II-XI intact bilaterally and deep tendon reflexes 2+ bilaterally Cranial nerves: Yes Equal, round and reactive pupils present Cognition (Neuro): normal cognition Motor exam (neuro): 5/5 motor strength present throughout, Normal motor muscle tone present throughout and Motor abnormalities not present Extrem General: Yes full ROM, Yes no pedal edema and Yes no calf tenderness Psych Mental Status: mental status grossly normal Affect: normal affect Thought process: Normal thought process present Medical Decision Making Medical Decision Making MDM Narrative: Patient is a 63-year-old male with history of IBS, anemia, arthritis, diabetes, lumbar post laminectomy syndrome presenting to the emergency department with complaint of acute on chronic lower back pain since yesterday. On exam patient is awake, A+Ox3, slightly tachycardic, but rechecked by me at bedside noted to be 95bpm, VS WNL, afebrile, normal neurological exam without focal deficits, p hysical exam findings as above. Given reported symptoms and physical exam findings, initial differential includes lumbar strain, lumbar radiculopathy, degenerative disc disease, disc herniation, spinal stenosis, spondylosis. Less likely vertebral fracture. Do not suspect malignancy/mass, SEA, cauda equina/cord compression. X-ray notable for no acute fracture or subluxation. My interpretation is in agreement with the radiologist's interpretation. Results discussed with patient and all questions answered. Will treat with flexeril and lidocaine patches. Return precautions discussed. Patient verbalized understanding of and agreement with plan. Differential Diagnosis Differential Diagnoses: The differential diagnosis associated with the presentation includes As per MDM Independent Interpretation I performed an independent interpretation of an: Plain X-Ray Interpretation: X-ray lumbar spine notable for no acute fracture or subluxation. Radiology Impression Discussion of test interpretation with radiology: I have reviewed the radiologist's reading. Radiologist Impression: IMPRESSION: Multilevel degenerative changes. No acute findings. External Record Review External record reviewed: Inpatient record, Office record and Outpatient record Prescription Management I considered prescription management with: Pain Medication and Other Discharge Plan Discharge Clinical Impression: Low back pain Patient Disposition: Home, Self-Care Instructions: Low Back Strain (ED), Acute Low Back Pain (ED), Lower Back Exercises (ED) Additional Instructions: You were evaluated in the emergency department today for back pain. Your evaluation did not show signs of medical conditions requiring emergent intervention at this time. We recommended that you use ibuprofen or Tylenol per package directions every 6 hours as needed for pain. If necessary, you can alternate these medications so that you take one medication every 3 hours. For instance, at noon take ibuprofen, then at 3:00 p.m. take Tylenol, then at 6:00 p.m. take ibuprofen. You have been prescribed a muscle relaxer called Flexeril (cyclobenzaprine) which you may take every 8 hours as needed for spasms. Do not drive, drink alcohol, or operate heavy machinery while taking this as it can cause drowsiness. You have been prescribed 5% topical lidocaine patches which you can wear for up to 12 hours in a 24 hour period. Do not apply heat directly over the patches. Please schedule an appointment for follow-up with your primary care physician this week for further evaluation of your symptoms. Return to the emergency department if you experience worsening back pain, difficulty walking, fevers, numbness, tingling, incontinence, groin numbness or tingling, or any other concerning symptoms. Prescriptions: New lidocaine 5 % adhesive patch,medicated 1 patch topical DAILY Qty: 15 0RF Rx Instructions: leave on most painful area for up to 12 hrs cyclobenzaprine 10 mg tablet 10 mg PO TID PRN (Reason: muscle spasm) Qty: 14 0RF No Action (DME) insulin syringe-needle U-100 [Advocate Syringes] 1 mL 30 gauge x 5/16 syringe See Rx Instructions .Route Qty: 10 1RF Rx Instructions: As directed (DME) BD Eclipse Luer-Pilo 25 gauge x 1 1/2 needle See Rx Instructions .ROUTE .MEDSUPPLY Qty: 2 5RF Rx Instructions: As directed for biweekly injection (injecting needle)- 2 per month (DME) syringe with cannula,disposabl 3 mL 18 x 1 syringe See Rx Instructions .Route Qty: 2 5RF Rx Instructions: As directed for biweekly Testosterone injection- 2 per month naloxone [Narcan] 4 mg/actuation spray,non-aerosol 4 mg intranasal Q2M PRN (Reason: opioid overdose) Qty: 2 1RF Rx Instructions: spray 1 dose into ONE nostril; alternate nostrils w each dose until help arrives omeprazole 40 mg capsule,delayed release(DR/EC) 40 mg PO DAILY Qty: 90 0RF cyclobenzaprine 10 mg tablet 10 mg PO TID PRN (Reason: muscle spasm) 5 Days Qty: 15 0RF Rx Instructions: side effect is drowsiness. DO not take at work or while driving. acetaminophen [Tylenol Extra Strength] 500 mg tablet 500 mg PO Q6H PRN (Reason: fever or pain) Qty: 14 0RF lidocaine [Lidoderm] 5 % adhesive patch,medicated 1 patch topical DAILY MDD remove after 12 hours PRN (Reason: pain) Qty: 30 0RF Rx Instructions: leave on most painful area for up to 12 hrs (DME) blood-glucose meter [FreeStyle Lite Meter] Kit See Rx Instructions .ROUTE .MEDSUPPLY Qty: 1 0RF Rx Instructions: check blood sugars daily and pern (DME) lancets [FreeStyle Lancets] 28 gauge misc See Rx Instructions .ROUTE .MEDSUPPLY Qty: 100 4RF Rx Instructions: POC testing 4 times daily (DME) FreeStyle Lite Strips Strip See Rx Instructions .ROUTE .MEDSUPPLY Qty: 100 4RF Rx Instructions: POC 4 times daily fluticasone propionate [Flonase Allergy Relief] 50 mcg/actuation spray,suspension 1 spray intranasal Q12H Qty: 16 1RF Rx Instructions: administer into each nostril fenofibrate 54 mg tablet 54 mg PO DAILY 90 Days Qty: 90 1RF (DME) BD Luer-Pilo Syringe 3 mL 18 x 1 1/2 syringe See Rx Instructions .ROUTE .MEDSUPPLY Qty: 100 Rx Instructions: As directed gabapentin 300 mg capsule 300 mg PO BID 90 Days Qty: 180 6RF meloxicam 15 mg tablet 15 mg PO DAILY PRN (Reason: pain) 30 Days Qty: 30 0RF sertraline 25 mg tablet 25 mg PO DAILY Tradjenta 5 mg tablet 5 mg PO DAILY Qty: 90 1RF testosterone 20.25 mg/1.25 gram (1.62 %) gel in metered-dose pump 2 pump topical DAILY 30 Days Qty: 75 3RF methadone 10 mg tablet 10 mg PO BID MDD 2 30 Days Qty: 60 0RF Rx Instructions: Please use this prescription to taper off medication, 4 weeks compassionate prescription. Print Language: Albanian
--- OUTSIDE RECORDS SUMMARY | 2024-05-05 08:12 | XMS_ITS | Encounter Summary ---
Author Organization [email or web address] [facility] Address [address] [place] [address] Care Team Providers Care Supervisor [employer] Name Role Phone Unavailable Primary Care Provider Unavailabl e Reason for Visit * Reason Onset Date Comments rs cancelled appt 03/10/2024 Encounter Details Date Type Department Care Team (Late st Contact Info) Description 03/10/2024 Telephone [facility] ADULT DENTAL [address] [place] [address] Henri Barroso [address] [place] [address] rs cancelled appt Social History Tobacco Use [...] Upcoming Encounters Date Type Department Care Team ([facility] Contact Info) Description 05/27/2024 2:30 PM EDT Office Visit [facility]ULT [facility] [address] [place] [address] Jimmy Lau, DMD [address] [place] [address] documented as of this encounter Visit Diagnoses Not on filedocumented in this encounter
--- OUTSIDE RECORDS SUMMARY | 2024-05-05 08:12 | XMS_ITS | Encounter Summary ---
Author Organization [facility] Address [address] [place] [address] Care Team Providers Care Agricultural Equipment Sales Engineer Name Role Phone Unavailable Primary Care Provider Unavailabl e Reason for Visit * Reason Comments Cut Bank Patient presents tod ay for crown delivery Rocio MANCERA Encounter Details Date Type Department Care Team ([facility] st Contact Info) Description 04/25/2024 11:00 AM EST Office Visit [facility] ADULT DENTAL [address] [place] [address] Jimmy Lau DMD [address] [place] [address] Full coverage crown needed for tooth at [...] Progress Notes * Jimmy Lau DMD - 04/25/2024 11:00 AM EST Patient ID: Sridhar Lacy is a 63 y.o. male. Time Out: Timeout Date: 04/25/24, Timeout Time: 1106 (Cut Bank delivery # 12) Location: [facility] Tooth: Maxilla, #7, and #8 Procedure: Cut Bank and Dentures Verified the above with patient, physical therapist assistant, and provider. Confirmed via patient's chart, intraorally and by radiographs. Wharf Hand: not applicable Chief Complaint Patient presents with Cut Bank Patient presents today for crown delivery Rocio MANCERA Medical Hx: Vitals: There were no vitals taken for this visit. Medications, Med Hx reviewed with patient and updated in chart. Consent Obtained: The risks, benefits, indications, potential complications, and alternatives were explained to the patient and informed consent was obtained with good understanding. Treatment Provided: Dental procedures in this visit D2740 - CROWN - PORCELAIN/CERAMIC 7 (Completed) Service provider: Jimmy Lau DMD Billing provider: Jimmy Lau DMD [id number] - CROWN - PORCELAIN/CERAMIC 8 (Completed) Service provider: Jimmy Lau DMD Billing provider: Jimmy Lau DMD [id number] - ADJUNCTIVE GENERAL SERVICES - PROFESSIONAL VISITS - CASE PRESENTATION, SUBSEQUENT TO DETAILED AND EXTENSIVE TREATMENT PLANNING (Completed) Service provider: Jimmy Lau DMD Billing provider: Jimmy Lau DMD No anesthesia utilized, pt able to tolerate Pt reports no issues or discomfort since prep appt Isolation: high speed suction and cotton rolls Removed Provisional and cleaned excess cement, pumiced tooth as needed. Tried on final synagogue Verified interproximal contacts and margins BW taken to confirm margins and contacts Occlusion adjusted as needed Slight adjustment made to interproximal between #7/8 to allow for better seating of #7 Tooth Treatment: Gluma applied Cemented with: Relyx Unicem Cleaned excess cement, flossed Patient satisfied with comfort and esthetics. POI given. Partial was not sent to lab to be retrofitted to new crown #7, so considerable adjustment made to #6 and the cast framework to achieve passive fit. Pt confirmed comfortable fit. Discussed risk of fracture of #6 and cautioned pt against biting in this area. Pt understood. Pt also understands that wewill be fabricating new cast metal partial in future. Patient discharged alert, oriented, and in stable condition NV: #12 core BU and crown prep (Take pickup impression when prepping #12) Construction Recruiter: Rocio Astudillo Dentist: Jimmy Lau DMD documented in this encounter Plan of Treatment Upcoming Encounters Date Type Department Care Team (Late st Contact Info) Description 05/27/2024 2:30 PM EDT Office Visit [facility] ADULT [facility] [address] [place] [address] Jimmy Lau DMD [address] [place] [address] documented as of this encounter Procedures Procedure Name Priority Date/Time Associated Diagnosis Comments 8 CROWN - PORCELAIN/CERAMIC Routine 04/25/2024 11:00 AM EST Full coverage crown needed for tooth at risk for fracture 7 CROWN - PORCELAIN/CERAMIC Routine 04/25/2024 11:00 AM EST Full coverage crown needed for tooth at risk for fracture CASE PRESENTATION, DETAILED AND EXTENSIVE TREATMENT PLANNING Routine 04/25/2024 11:00 AM EST Full coverage crown needed for tooth at risk for fracture documented in this encounter Visit Diagnoses Diagnosis Full coverage crown needed for tooth at risk for fracture- Primary documented in this encounter
--- OUTSIDE RECORDS SUMMARY | 2024-05-05 08:13 | XMS_ITS | Encounter Summary ---
Author Organization [employer] [facility] Address [address] [place] [address] [address] [place] [address] Care Team Providers Care Cook Manager Name Role Phone Unavailable Primary Care Provider Unavailabl e Reason for Visit * Reason Comments Boley Tooth #7, #8, #12 Encounter Details Date Type Department Care Team (Late st Contact Info) Description 04/09/2024 8:00 AM EST Office Visit [facility] ADULT DENTAL [address] [place] [address] Jimmy Lau DMD [address] [place] [address] Full coverage crown needed for tooth at [...] Time: 0815 (Tooth #7, #8, #12) Location: [facility] Tooth: #7, #8, and #12 Procedure: Sikhism and Boley Verified the above with patient, diploma dental assistant, and provider. Confirmed via patient's chart, intraorally and by radiographs. Sugar Boiler: not applicable Chief Complaint Patient presents with Boley Tooth #7, #8, #12 Medical Hx: Vitals: [...] Etch Desensitizer: Gluma Liner/Base: None López: I-López Sikhism Material: Voco Grandioso Flowable Shade: A3 Prepared [...] and in stable condition. NV: #7,8 crown freight delivery driver: Rocio Astudillo Dentist: Jimmy Lau DMD documented in this encounter Plan of Treatment Upcoming Encounters Date Type Department Care Team (Late st Contact Info) Description 05/27/2024 2:30 PM EDT Office Visit [facility] ADULT DENTAL [address] [place] [address] Jimmy Lau DMD [address] [place] [address] Scheduled Orders Name Type Priority Associated Diagnoses Orde r Schedule DENTAL LAB FIXED Dental Routine Ordered: 04/09/2024 documented as of this encounter Procedures Procedure Name Priority Date/Time Associated Diagnosis Comments 7,8 CROWN PREP Routine 04/09/2024 8:00 AM EST Full coverage crown needed for tooth at risk for fracture Dental caries 7 DF(V)L RESIN-BASED COMPOSITE - 3 SURF, ANTERIOR Routine 04/09/2024 8:00 AM EST Dental caries 8 L RESIN-BASED COMPOSITE - 1 SURF, ANTERIOR Routine 04/09/2024 8:00 AM EST Dental caries CASE PRESENTATION, DETAILED AND EXTENSIVE TREATMENT PLANNING Routine 04/09/2024 8:00 AM EST Full coverage crown needed for tooth at risk for fracture Dental caries documented in this encounter Visit Diagnoses Diagnosis Full coverage crown needed for tooth at risk for fracture- Primary Dental caries Unspecified dental caries documented in this encounter
--- OUTSIDE RECORDS SUMMARY | 2024-05-05 08:13 | XMS_ITS | Clinical Summary ---
Author Organization [facility] [facility] Address [address] 7t [place] [address] Care Team Providers Care Strategic Partnership Specialist Name Role Phone Unavailable Primary Care [...] Encounters Date Type Department Care Team Description 04/25/2024 11:00 AM EST Office Visit [facility] ADULT DENTAL [address] [place] [address] Jimmy Lau DMD Full coverage crown needed for tooth at risk for fracture (Primary Dx) 04/09/2024 8:00 AM EST Office Visit [facility] ADULT DENTAL [address] [place] [address] Jimmy Lau DMD Full coverage crown needed for tooth at risk for fracture (Primary Dx); Dental caries 04/01/2024 2:00 PM EST Office Visit [facility] ADULT D[facility]AL [address] [place] [address] Jimmy Lau DMD Full coverage crown needed for tooth at risk for fracture (Primary Dx) 03/10/2024 Telephone [facility] ADULT DENTAL [address] [place] [address] Henri Barroso rs cancelled appt 02/19/2024 9:00 AM EST Office Visit [facility] ADULT D[facility]AL [address] [place] [address] BehalleYvon Dental calculus (Primary Dx); Partial edentulism, unspecified edentulism class 02/13/2024 2:00 PM EST Office Visit [facility] ADULT DENTAL [address] [place] [address] Keyla Griffiths DMD 02/06/2024 8:00 AM EST Office Visit [facility] ADULT D[facility] [address] [place] [address] Henri Barroso from Last 3 Months Social [...] Description 05/27/2024 2:30 PM EDT Office Visit [facility] ADULT [facility] [address] [place] [address] Jimmy Lau DMD [address] [place] [address] Health Maintenance Due Date Last Done Comments [...] Dental X-Ray: Bitewings 02/19/2025 02/19/2024 Tobacco Screening 04/25/2025 04/25/2024 DTaP/Tdap/Td Vaccines (2 - Td or Tdap) [...] Procedure Name Priority Date/Time Associated Diagnosis Comments CASE PRESENTATION, DETAILED AND EXTENSIVE TREATMENT PLANNING Routine 04/25/2024 11:00 AM EST Full coverage crown needed for tooth at risk for fracture 8 CROWN - PORCELAIN/CERAMIC Routine 04/25/2024 11:00 [...] risk for fracture Dental caries 8 L RESIN-BASED COMPOSITE - 1 SURF, ANTERIOR Routine 04/09/2024 8:00 AM EST Dental caries 7 DF(V)L RESIN-BASED COMPOSITE - 3 SURF, ANTERIOR Routine 04/09/2024 8:00 AM EST Dental caries 7,8 CROWN PREP Routine 04/09/2024 8:00 AM EST Full coverage crown needed for tooth at risk for fracture Dental caries CASE PRESENTATION, DETAILED AND EXTENSIVE TREATMENT PLANNING Routine 04/01/2024 [...] AM EST Partial edentulism, unspecified edentulism class CASE PRESENTATION, DETAILED AND EXTENSIVE TREATMENT PLANNING Routine 02/19/2024 [...] 20 EXTRACTION, ERUPTED TOOTH OR EXPOSED ROOT (ELEVATION/FORCEPS REMOVAL) Routine 02/06/2024 8:00 AM EST 19 EXTRACTION, ERUPTED TOOTH OR EXPOSED ROOT (ELEVATION/FORCEPS REMOVAL) Routine 02/06/2024 8:00 AM EST 18 EXTRACTION, ERUPTED TOOTH OR EXPOSED ROOT (ELEVATION/FORCEPS REMOVAL) Routine 02/06/2024 8:00 AM EST from Last 3 Months Insurance [facility]
--- OUTSIDE RECORDS SUMMARY | 2024-05-05 08:13 | XMS_ITS | Patient Health Record ---
Author Organization [facility] Address [address] [facility] [place] [address] Care Team Providers Care Electron Beam Welder Setter Name Role Phone Vania NEW, Harshad Primary Care Provider Unavail able Vika Mendez Unavailable [phone] Allergies No Known Allergies Results Component Value [...] Problem Status W/U Status Risk Notes Problem 23738524 Type 2 diabetes mellitus with polyneuropathy (E11.42) Active confirmed Vital Signs Blood pressure diastolic 87 mm Hg 10/03/2023 Height 6ft2in in 10/03/2023 Blood pressure systolic 137 mm Hg 10/03/2023 Weight 228 lbs 10/03/2023 BMI 29.27 kg/m2 10/03/2023 Encounters Encounter Location Date Provider Diagnosis [facility] [place] [address] [place] [address] 10/03/2023 Vika Mendez Tinea pedis B35.3 ; [...] Provider Name:Vika covington, 10/07/2024 09:00:00 AM, [address] [place], [address], Insurance Providers Payer Name Payer Address Payer Phone Subscriber Number Group Number Insured Name Patient Relationship to Insured Coverage Start Date Coverage End Date [facility] SCO Claims [address] [place] [phone] [id number] Sridhar Lacy Self - patient is the insured Medical (General) History Medical History History ICD Code Arthritis Depression Diabetes Surgical History Surgery Date(Month/Year)
--- OUTSIDE RECORDS SUMMARY | 2024-05-05 08:13 | XMS_ITS | Encounter Summary ---
Author Organization [facility] Address [address] [facility] 7t [place] [address] Care Team Providers Care Inspection Supervisor Name Role Phone Unavailable Primary Care Provider Unavailabl e Encounter Details Date Type Department Care Team (Latest Contact Info) Description 11/24/2021 Abstract [facility] CONVERSIONS Dental, Provider, DDS Social History [...] Description 05/27/2024 2:30 PM EDT Office Visit [facility] ADULT DENTAL [address] [place] [address] Jimmy Lau, TONY [address] [place] [address] documented as of this encounter Visit Diagnoses Not on filedocumented in this encounter
--- OUTSIDE RECORDS SUMMARY | 2024-05-05 08:14 | XMS_ITS ---
Author Organization [facility] Address [address] [facility] [place] [address] Care Team Providers Care Development Professional Name Role Phone Vania NEW, Harshad Primary Care Provider Unavail able Vika Mendez Unavailable [phone] Allergies No Known Allergies REASON FOR VISIT Skin Problem Medications Medication SIG (Take, Route, [...] 024 Encounters Encounter Location Date Provider Diagnosis [facility] [address] [address] 10/03/2023 Vika Mendez Tinea pedis B35.3 ; [...] Reason: Provider Name:Vika covington, 10/07/2024 09:00:00 AM, [address] [place] [address], [id number], Procedure Notes * Category Sub-Category Detail Notes Keratoma Treatment Parring or Cutting o f Benign Hyperkeratotic Lesion(s) 86417 ( 2-4 Lesions ) - The Benign hyperkeratotic lesions, as described above were pared, and/or cut utilizing a sterile 15 blade, tissue nippers, and/or dremel Progress Notes * Sridhar LACYDOB: 3 (63 yo M)Acc No.[id number]:10/03/2023 Progress Note Patient:?Sridhar LACY Provider:?Vika Mendez DPM :1960???Age:63 Y???Sex:Male Santy e:10/03/2023 Address:[address] [place], [place] [id number] Pcp:Harshad Caro NP Subjective: * Chief Complaints: * ???Skin Problem * HPI: ???Skin problems:?Nature:?Lump, tender; rash [...] denies, denies.? * Medical History:? * Surgical History:?Denies Pas t Surgical History * Hospitalization/Major Diagno stic Procedure:?Denies [...] frequency:, 1-2 cups per day. ?Children: yes. ?Exercise: no. ?Marital status: . ?Occupation: Retired. * Medications:?TakingTradjenta 5 MG Tablet 1 tablet Orally Once a day Sildenafil Citrate 50 MG Tablet 1 tablet as needed Orally Once a day , Notes to Pharmacist: viagraPARoxetine HCl 20 MG Tablet 1 tablet in the morning Orally Once a day , Notes to Pharmacist: paxilOmeprazole 40 MG Capsule Delayed Release 1 capsule 30 minutes before morning meal Orally Once a day Methadone HCl 5 MG Tablet 1 tablet Orally Once a day Linagliptin , Notes to Pharmacist: deepaliaLidocaine , Notes to Pharmacist: lidodermGabapentin 300 MG Capsule 1 capsule Orally Once a day Ferrous Sulfate 325 (65 Fe) MG Tablet 1 tablet Orally Once a day Fenofibrate 54 MG Tablet 1 tablet with food Orally Once a day Acetaminophen Ciclopirox Olamine 0.77 % Cream 1 application to affected area Externally to feet Twice a day Sertraline HCl 25 MG Tablet Oral Taking Tradjenta 5 MG Tablet 1 tablet Orally Once a day Taking Sildenafil Citrate 50 MG Tablet 1 tablet as needed Orally Once a day , Notes to Pharmacist: viagraTaking PARoxetine HCl 20 MG Tablet 1 tablet in the morning Orally Once a day , Notes to Pharmacist: paxilTaking Omeprazole 40 MG Capsule Delayed Release 1 capsule 30 minutes before morning meal Orally Once a day Taking Methadone HCl 5 MG Tablet 1 tablet Orally Once a day Taking Linagliptin , Notes to Pharmacist: Philip Lidocaine , Notes to Pharmacist: lionelodermTaking Gabapentin 300 MG Capsule 1 capsule Orally Once a day Taking Ferrous Sulfate 325 (65 Fe) MG Tablet 1 tablet Orally Once a day Taking Fenofibrate 54 MG Tablet 1 tablet with food Orally Once a day Taking Acetaminophen Taking Ciclopirox Olamine 0.77 % Cream 1 application to affected area Externally to feet Twice a day Taking Sertraline HCl 25 MG Tablet Oral Not-Taking/PRNNaloxone HCl 4 MG/10ML Solution as directed Injection , Notes to Pharmacist: narcanLancets Lactobacillus Diclofenac Sodium 1 % Gel as directed Externally , Notes to Pharmacist: voltarenDiclofenac Potassium 50 MG Tablet 1 tablet with food or milk as needed Orally Twice a day Coenzyme Q10 30 MG Capsule as directed Orally Medication List reviewed and reconciled with the patientNot-Taking/PRN Naloxone HCl 4 MG/10ML Solution as directed Injection , Notes to Pharmacist: narcanNot-Taking/PRN Lancets Not- Taking/PRN Lactobacillus Not-Taking/PRN Diclofenac Sodium 1 % Gel as directed Externally , Notes to Pharmacist: voltarenNot-Taking/PRN Diclofenac Potassium 50 MG Tablet 1 tablet with food or milk as needed Orally Twice a day Not-Taking/PRN Coenzyme Q10 30 MG Capsule as directed Orally Medication List reviewed and reconciled with the patient * Allergies:?N.K.D.A.yes[Aller gies Verified] Objective: * Vitals:?Ht: 6ft2in, Wt:228, BMI:29.27, Shoe size: 12, BP:137/87mm Hg, BS: not taken, Ht-cm: 187.96 cm, Wt-k.42 kg. * ???Past Orders: ???Lab:HEMOGLOBIN A1C (GLYCO HEMOGLOBIN) (Order Date - 08/18/2023) (Collection Date & Time - 08/18/2023 08:40 AM) ? Value Reference Range ?HEMOGLOBIN A1C (HH) [...] own?historian for office visit today.?ORIENTED:?person, place, and time.?FOOT EXAM:?Footwear Evaluation?Neurological: ?SENSORY:?Neurological exam demonstrates , reduced light touch sensation , reduced sharp/dull pin prick discrimination , reduced vibration sensation , reduced proprioception sensation , in a stocking fashion , plantar aspects , 5.07 monofilament test performed at plantar aspects of 5 varied sites per foot shows sensation , reduced , at Forefoot , B/L.?DEEP TENDON REFLEXES:?Achilles, 2/4, B/L.?Vascular: ?DP PULSES (B):?3/4, B/L.?PT PULSES (B):?3/4, B/L.?CAPILLARY FILL TIME:?immediate, all digits, B/L.?TROPHIC CONDITION-TEXTURE/ELASTICITY/TURGOR/HAIR GROWTH (B):?normal, B/L.?TEMPERTURE GRADIENT (C):?warm to cool, proximal to distal, B/L.?PIGMENTATION:?normal, B/L.?EDEMA (C):?absent, B/L.?Orthopedic: ?MUSCLE STRENGTH:?5/5 all groups in a symmetrical fashion , B/L.? 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 Plan: * Treatment: * Procedures:?Keratoma Treatment:?Parring or Cutting of Benign Hyperkeratotic Lesion(s)?88685 ( 2-4 Lesions ) - The Benign hyperkeratotic lesions, as described above were pared, and/or cut utilizing a sterile 15 blade, tissue nippers, and/or dremel.? * Procedure Codes:?65028 TRIM SKIN LESIONS, 2 TO 4, Modifiers: [...] Mendez DPM Date:? Generated for Holly voss/Jennifer/Leonela on:?05/05/2024 08:13 AM EST History and Physical Notes * [...] as own historian for office visit today FOOT EXAM: Lower Extremity Neurological Exa m performed:: Yes Visual exam of foot performed:: Yes Date: 10/03/2023 ORIENTED: person, place, and t sandra Footwear Evaluation Footwear Evaluation performe d:: Yes Ophthalmology Referral DIABETES EYE EXAM Diabetic Retinopa [...]
[2024-05-05 09:04] VITALS: BP 134/81; PULSE 116; RESP 20; TEMP 36.6; O2SAT 96
== END 2024-05-05 09:04 | disposition home or self-care (01) ==
PROVIDERS: Emergency Provider Emergency Medicine; PCP Nurse Practitioner Family
DX: M54.50 Low back pain, unspecified (principal); E11.9 Type 2 diabetes mellitus without complications; Z79.4 Long term (current) use of insulin; Z79.899 Other long term (current) drug therapy
CPT/HCPCS: 72100; 99282; 99283

== ENCOUNTER → 2024-05-05 08:11 | Outpatient (BNV) | payer OTHER, SELFPAY | PROVIDERS: Emergency Provider Emergency Medicine; PCP Nurse Practitioner Family; Visit Provider Radiology Diagnostic Radiology | DX: M51.360 Other intervertebral disc degeneration, lumbar region with discogenic back pain only (principal) | CPT/HCPCS: 72100 ==

== ENCOUNTER 2024-05-30 07:45 | Outpatient (AMB) | payer OTHER, SELFPAY ==
--- OUTSIDE RECORDS SUMMARY | 2024-05-30 07:48 | XMS_ITS ---
Author Organization [facility] Address [address] [facility] [place] [address] Care Team Providers Care System Controller Name Role Phone Vania NEW, Harshad Primary Care Provider Unavail able Vika Mendez Unavailable [phone] Allergies No Known Allergies REASON FOR VISIT [...] 024 Encounters Encounter Location Date Provider Diagnosis [facility] [address] [address] 10/03/2023 Vika Mendez Tinea pedis B35.3 ; [...] Reason: Provider Name:Vika covington, 10/07/2024 09:00:00 AM, [address] [place] [address], [address], Procedure Notes * Category Sub-Category Detail Notes Keratoma Treatment Parring or Cutting o f Benign Hyperkeratotic Lesion(s) 27229 ( 2-4 Lesions ) - The Benign hyperkeratotic lesions, as described above were pared, and/or cut utilizing a sterile 15 blade, tissue nippers, and/or dremel Progress Notes * Sridhar LACYDOB: 3 (63 yo M)Acc No.[id number]:10/03/2023 Progress Note Patient:?Sridhar LACY Provider:?Vika Mendez DPM :1960???Age:63 Y???Sex:Male Santy e:10/03/2023 Address:[address] [place], [place] [address] Pcp:Harshad Caro NP Subjective: * Chief Complaints: [...] 6.8 * Examination: ???Ophthalmology Referral: ?DIABETES EYE EXAM?Diabetic Retinopathy Screening:?Yes ?Findings of Diabetic Eye Exam:?no retinopathy?Dermatologic: ?SKIN FINDINGS:? Skin shows sign(s) of, a [...] for office visit today.?ORIENTED:?person, place, and time.?FOOT EXAM:?Lower Extremity Neurological Exam performed:?Yes ?Visual exam of foot performed:?Yes ?Date?10/03/2023 ?Footwear Evaluation?Footwear Evaluation performed:?Yes?Neurological: ?SENSORY:?Neurological exam demonstrates , reduced light touch [...] Procedures:?Keratoma Treatment:?Parring or Cutting of Benign Hyperkeratotic Lesion(s)?54359 ( 2-4 Lesions ) - The Benign hyperkeratotic lesions, as described above were pared, and/or cut utilizing a sterile 15 blade, tissue nippers, and/or dremel.? * Procedure Codes:?93758 TRIM SKIN LESIONS, 2 TO 4, Modifiers: [...] Provider:?Vika Mendez DPM Date:? Generated for Holly voss/Jennifer/eTransmitting on:?05/30/2024 07:48 AM EDT History and Physical Notes * HPI (History [...]
--- OUTSIDE RECORDS SUMMARY | 2024-05-30 07:48 | XMS_ITS | Continuity of Care Document ---
Author Organization [facility] Address [address] [place] [address] Care Team Providers Care Front Office Spec Name Role Phone Gen Garcia APRN Unavailable [...] Diagnoses Date Provider Providers Copied on Encounter [facility], [address], [place], [place], [id number] , [facility] No Information 1 Jose Blevins. [address] [place] [address], [id number], . tel:[phone] Referring Provider: Gen Garcia, [address] [place] [address], [address] . tel:[phone] OFFICE/OUTPA TIENT VISIT, [facility], [address], [place], [place], [id number] , [facility] back pain (chief complaint) Chronic pain syndromeRadicul opathy, lumbar regionPostlamin ectomy syndrome, not elsewhere classifiedLong term (current) use of opiate analgesic 1 Jose Blevins. [address] [place] [address], [id number], . tel:[phone] Referring Provider: Gen Garcia, [address] [place] [address], [address] . tel:[phone] OFFICE/OUTPA TIENT VISIT, EST [facility], [address], [place], [place], [id number] , [facility] low back pain (chief complaint) Chronic pain syndromePostlam inectomy syndrome, not elsewhere classifiedRadic ulopathy, lumbar regionLong term (current) use of opiate analgesic 1 Jose Blevins. [address] [place] [address], [id number], . tel:[phone] Referring Provider: Gen Garcia, [address] [place] [address], [address] . tel:[phone] OFFICE/OUTPA TIENT VISIT, [facility], [address], [place], [place], [id number] , [facility] No Information 1 Pérez Jung. [address] [place] [address], [id number], . tel:[phone] Referring Provider: Tori Aguayo, [address] [place] [address], [id number] . tel:[phone] [facility], [address], [place], [place], [id number] , [facility] back pain (chief complaint) Body mass index (BMI) 29.0-29.9, adultRadiculopa thy, lumbar regionPostlamin ectomy syndrome, not elsewhere classifiedLong term (current) use of opiate analgesic 1 Pérez Jung. [address] [place] [address], [id number], . tel:[phone] OFFICE/OUTPA TIENT VISIT, [facility], [address], [place], [place], [id number] , [facility] back pain (chief complaint) Body mass index (BMI) 29.0-29.9, adultRadiculopa thy, lumbar regionOther local company intermodal truck driver (current) drug therapyLumbagoP ostlaminectomy syndrome, not elsewhere classifiedDepre ssion 1 Dede Valle. [address] [place] [address], [id number], . tel:[phone] Referring Provider: Tori Aguayo, [address] [place] [address], [address] . tel:[phone] Family History Family Member Type Diagnosis Age At Onset No Information Payers Payer name Insurance type Covered constitution party ID Authorjareta april(s) [facility] Healthcare Plans Medicaid [id number] Social History Type Description Quantity Date [...] ordered Referral Referred To: Jett Barron [address] [facility]
[address] [place], [place], [id number] Ordered: Referrals: Clinical Psychology. Jett Barron. Evaluate [...] walking.The patient denies relieving factors. Additional information: [employer] [facility] for imaging. Functional Status Date [...] be obtained in this office. Related to halfway (current) use of opiate analgesic Further discussed [...] seeing psychologist and psychiatrist when residing in [place] and is pending establishing with psychiatrist in [facility]. Related to Depression Patient had L-MRI w/ and w/out contrast from [facility] this month and will call to retrieve report. -Will also retrieve records from previous pain management physician in [place], Dr. Carlos Eduardo Baxter and PCP in [place] ,Dr. Isela Ramirez. -Also obtain records from PCP in [facility]- Dr. Sal Mendiola.Patient will call PCP [...] management in [place], but then moved to [place]. States that he has hardware to lumbar [...] abuse.CAGE questionnaire score: 0 Related to Other residential (current) drug therapy Dietary management e ducation, guidance, and counseling Related to Body mass index [BMI] 29.0-29.9, adult Assessments Type Assessment Date No Information Patient Care Teams Name Effective Dates (start - stop) Status Members No Information
--- OUTSIDE RECORDS SUMMARY | 2024-05-30 07:48 | XMS_ITS | Patient Health Record ---
Author Organization [facility] Address [address] [facility] [place] [address] Care Team Providers Care Control Supervisor Name Role Phone Vania NEW, Harshad Primary Care Provider Unavail able Vika Mendez Unavailable [phone] Allergies No Known Allergies Results Component Value [...] Problem Status W/U Status Risk Notes Problem [id number] Type 2 diabetes mellitus with polyneuropathy (E11.42) Active confirmed Vital Signs Blood pressure diastolic 87 mm Hg 10/03/2023 Height 6ft2in in 10/03/2023 Blood pressure systolic 137 mm Hg 10/03/2023 Weight 228 lbs 10/03/2023 BMI 29.27 kg/m2 10/03/2023 Encounters Encounter Location Date Provider Diagnosis [facility] [place] [address] [place] [address] 10/03/2023 Vika Mendez Tinea pedis B35.3 ; [...] Provider Name:Vika covington, 10/07/2024 09:00:00 AM, [address] [place], [address], Insurance Providers Payer Name Payer Address Payer Phone Subscriber Number Group Number Insured Name Patient Relationship to Insured Coverage Start Date Coverage End Date [facility] SCO Claims [address] [place] [id number] [phone] [id number] Sridhar Lacy Self - patient is the insured Medical (General) History Medical History History ICD Code Arthritis Depression Diabetes Surgical History Surgery Date(Month/Year)
--- NOTE | 2024-05-30 07:49 | A.OFFPC_ITS ---
Vital Signs 05/30/24 08:03 Height 6 ft 2 in Weight 226 lb BMI 29.0 BP 130/66 Blood Pressure Location Rt brachial Position Sitting Respiration 16 Pulse 85 Pulse Source Pulse Oximeter Temp 97.7 F Temp Source Oral Pulse Oximetry (%) 99 Oxygen Delivery Method Room Air Intake Visit Reasons: 1 mos CPE Intake Note: patient here for CPE Process Eng Required: Yes Process Eng Language: Pattern Gater Name: patient refused Information Interpreted: non-clinical & clinical Allergies fentanyl Allergy (Intermediate, Verified 05/30/24 08:21) itching morphine [Amber] Allergy (Intermediate, Verified 05/30/24 08:21) itch Iodinated Contrast Media [IV Dye, Iodine Containing] Allergy (Mild, Verified 05/30/24 08:21) DIFFICULTY BREATHING,VOMITING amoxicillin [From Augmentin] Adverse Reaction (Intermediate, Verified 05/30/24 08:21) Diarrhea clavulanic acid [From Augmentin] Adverse Reaction (Intermediate, Verified 05/30/24 08:21) Diarrhea metformin Adverse Reaction (Intermediate, Verified 05/30/24 08:21) stomach pain Tobacco use date assessed: 05/30/24 Dental Screening Dental Screen Date: 05/30/24 Did you have a dental visit in the last 12 months?: Yes Did you have a dental problem in the last 6 months where you did not have access to dental care?: No Was dental information given to patient?: Patient has dentist HPI HPI Comments History of Present Illness Details 63-year-old male presents for an extende d physical exam. He admits to taking his medications as prescribed without adverse reactions. Acute issue(s) - Reports left shoulder pain with certai n movements and extension x 2 months. Unable to describe the pain. Denies tingling, numbness, or loss of sensation. Denies fall, injury, or trauma - Reports chronic low back pain - Report non-itchy, painless lesion to h is right side for the past several month. - Reports controlled anxiety and depress hardeep symptoms. Past Medical History - Type 2 diabetes, hyperlipidemia, GERD, BARROSO, kidney stones, IBS, obesity, BPH, hypogonadism, ED, chronic lumbar radiculopathy, osteoarthritis of left knee, chronic pain syndrome, long-term methadone use Social History - Former cigarette smoker. Does not vape . Does not drink alcohol. Denies recreational drug use - Has been making healthy dietary choice s. Exercises routinely. Generally sleep well Health maintenance - Last eye exam was a year ago with Dr. Ricardo. He notes that he has an eagle ointment scheduled for an eye exam in May or June 2024 - Last dental visit was 04/2024. He is cu rrently doing routine follow-up for crowns - Last Tdap was in 05/29/2019 - He is up-to-date on the pneumonia vacc molly - He had 1of 2 shingles vaccine in 2021; encouraged to update is shingles vaccine - He notes that he is up-to-date on the influenza vaccine - Last colonoscopy was more that 5 years ago; benign polyps. He notes that he is due for a colonoscopy. Referred to [facility] for colonoscopy - Last podiatry visit was in 2023. Recor israel not available. Advised to contact his housekeeper supervisor for annual foot exam. He will sign a release for his PCP to obtain his podiatry record Specialists - [facility] urology, gastroenterology, and [facility] Medical History (Updated 05/30/24 @ 14:06 by Eldon Caro CNP) Colon cancer screening Laboratory tests ordered as part of a complete physical exam (CPE) Screening PSA (prostate specific antigen) Pre-op examination Left otitis media Weight loss, abnormal Nausea Irritable bowel syndrome with diarrhea Normal routine history and physical examination Low back pain BPH (benign prostatic hyperplasia) Poison derek dermatitis Hx of iron deficiency anemia Lumbar spondylosis Iron deficiency anemia Normal physical exam Anemia Sepsis Acute respiratory failure with hypoxia Pneumonia History of COVID-19 History of 2019 novel coronavirus disease (COVID-19) High cholesterol Arthritis Diabetes Contact dermatitis Narcotic drug use DMII (diabetes mellitus, type 2) Elevated liver transaminase level Lumbar radiculopathy, chronic Lumbar spinal stenosis Cervical radiculopathy Lumbar post-laminectomy syndrome Surgical History History of esophagogastroduodenoscopy (EGD) H/O colonoscopy History of elbow surgery History of lumbar fusion History of cholecystectomy Family History Father Liver problem Alcoholism Substance use disorder Mother No problems noted. Brother CAD (coronary artery disease) Social History Household Members: Family Housing: House Do you presently have visiting nurse or other home services: No Alcohol intake: never Patient Tobacco Use Status: Former Tobacco user Cigarette Packs Per Day: 0.5 Cigarettes Per Day: 10 Years Smoked: 10 e-Cigarette/Vaping Use: Never Used Second Hand Smoke Exposure: No service: No Current occupational status: disabled Current occupational exposures/hazards: No Cognitive needs: No (cane) Hearing needs: No Vision needs: Yes (reading glasses) Questionnaire PHQ-9 Over the last 2 weeks, how often have you been bothered by any of the following problems? 1. Little interest or pleasure in doing things: several days 2. Feeling down, depressed, or hopeless: several days 3. Trouble falling or staying asleep, or sleeping too much: several days 4. Feeling tired or having little energy: several days 5. Poor appetite or overeating: several days 6. Feeling bad about yourself - or that you are a failure or have let yourself or your family down: not at all 7. Trouble concentrating on things, such as reading the newspaper or watching television: several days 8. Moving or speaking so slowly that other people could have noticed. Or the opposite - being so fidgety or restless that you have been moving around a lot more than usual: several days 9. Thoughts that you would be better off or of hurting yourself in some way: not at all Total score: 7 Depression Screening Interpretation: Positive Depression Screening Follow-up: Existing condition and In treatment Depression Screening Done: Yes 85828 - PHQ-9 Billing: Yes Source: Developed by Drs. Enrico Chiang, Kassandra Neville, Farhat Pandey and colleagues, with an educational mann from [employer]. Thrive Questionnaire Date Thrive assessed: 05/30/24 I am a: Patient What is your living situation today?: I have a steady place to live Within the past 12 months, did the food you bought not last and you didn't have the money to get more?: Never true Within the past 12 months, did you worry whether your food would run out before you got money to buy more?: Never true Do you have trouble paying for medicines?: No Do you have trouble getting transportation to medical appointments?: No Do you have trouble paying your heating and electricity bill?: No Do you have trouble taking care of your child, family member or friend?: No Do you have trouble with day-to-day activities such as bathing, preparing meals, shopping, managing finances, etc.?: Yes Are you currently unemployed and looking for a job?: Yes Are you interested in more education?: No Please select the resources that you would like help with: Job search/training Currently or been in a relationship where the following occur: No concerns reported THRIVE Score: 0 AUDIT C Alcohol Use Questionnaire (AUDIT-C) 1. How often do you have a drink containing alcohol?: Never Total Score: 0 Score Reviewed/Action Taken: Yes NICOLE-7 AMB Questionnaire NICOLE-7 Date NICOLE - 7 assessed: 05/30/24 Feeling nervous, anxious, or on edge: 2 = More than half the days Not being able to stop or control worryin = Several days Worrying too much about different things: 1 = Several days Trouble relaxin = Several days Being so restless that it is hard to sit still: 1 = Several days Becoming easily annoyed or irritable: 1 = Several days Feeling afraid as if something awful might happen: 1 = Several days Total NICOLE-7 score (0-4 normal; 5-9 mild; 10-14 moderate; 15-21 severe): 8 Source: Developed by Drs. Enrico Chiang, Kassandra Neville, Farhat Pandey and colleagues, with an educational mann from [employer]. NICOLE-7 Assessment Billing NICOLE-7 Assessment Tool: NICOLE-7 Assessment 11673 Review of Systems Const Details: Denies chills, Denies fatigue, Denies fever(s), Denies headache(s) and Denies weakness HEENT Denies change in vision, Denies dizziness, Denies headache(s), Denies hearing loss, Denies nasal congestion, Denies sinus pain, Denies sinus pressure and Denies sore throat Card Denies chest pain, Denies lightheadedness, Denies dyspnea and Denies other (palpitations) Resp Denies cough, Denies dyspnea and Denies wheezing GI Denies abdominal pain, Denies melena, Denies hematochezia, Denies change in bowel habits, Denies dyspepsia and Denies nausea Denies hematuria and Denies dysuria Musc Rpeorts left shoulder pain, Reports chronic low back pain, Denies abnormal gait, Denies numbness and Denies tingling Skin/Breast Reports skin lesion, Denies rash, Denies unusual bruising and Denies wounds Neuro Denies abnormal gait, Denies dizziness, Denies headache(s), Denies memory loss, Denies numbness, Denies Sensory deficit (Neuro), Denies tingling and Denies weakness Psych Denies anxiety, Denies depression and Denies memory loss Endo Denies cold intolerance, Denies fatigue, Denies heat intolerance, Denies polydipsia and Denies polyuria Barrie/Lymph Denies easy bleeding and Denies easy bruising Aller/Immun Denies wheezing Physical exam (Primary Care) Vital Signs: Last Vital Signs Temp 97.7 F 05/30/24 08:03 Pulse 85 05/30/24 08:03 Resp 16 05/30/24 08:03 BP 130/66 05/30/24 08:03 Pulse Ox 99 05/30/24 08:03 Oxygen Delivery Method Room Air 05/30/24 08:03 BMI result Body Mass Index 29.0 Tobacco/Smoking Status: Tobacco use Status Tobacco use date assessed 05/30/24 05/30/24 08:03 Patient Tobacco Use Status Former Tobacco user 05/30/24 07:51 e-Cigarette/Vaping Use Never Used 05/30/24 07:51 PHQ-9: PHQ-9 Score PHQ-9: Total score 7 05/30/24 10:38 Depression Screening Interpretation: Positive Depression Screening Follow-up: Existing condition and In treatment Thrive Assessment: Date of Thrive Assessment Date Thrive assessed 05/30/24 05/30/24 08:10 Currently or been in a relationship where the following occur: No concerns reported Const Other: General: no acute distress, well developed, alert and awake Nutritional Appearance: well nourished Orientation/consciousness: patient oriented x3 HENMT Head: Yes normocephalic and Yes atraumatic Ears: hearing grossly normal bilaterally and TM's normal bilaterally General nose exam: Normal external nose present and Normal nares present Mouth: Normal oral and palatal mucosa present and moist mucous membranes Teeth and gingiva: dentition normal Throat: Yes oropharynx normal Eyes Pupils: Equal, round and reactive pupils present and Pupil accommodation reflex normal EOM: EOMs intact bilaterally Neck Neck: Yes normal visual inspection, Yes no lymphadenopathy and Yes trachea midline Thyroid: Thyroid normal Carotids: no bruits Lymphatic: no lymphadenopathy noted Chest Chest palpation & inspection: normal inspection of the chest Resp Effort & Inspection: normal respiratory effort Auscultation: clear to auscultation bilaterally Cardio Rate: regular rate Rhythm: regular rhythm Heart sounds: S1 normal heart sound present, S2 normal heart sound present, no gallops, no murmurs and no rubs Bruits: no abdominal aortic bruits and no carotid bruits GI Palpation (GI): No Abdominal aortic bruit present, Soft to palpation, nontender, No hepatosplenomegaly present and No Rebound tenderness present Auscultation: normal bowel sounds General: Yes no CVA tenderness Back/Spine/Pelvis Back: no CVA tenderness Cervical Spine: cervical ROM normal and No Cervical spine tenderness Thoracic/Lumbar Spine: thoraco-lumbar ROM normal, No pain with thoraco-lumbar ROM, No thoracic spinal tenderness and No lumbar spinal tenderness Skin General: warm and dry. Normal skin color. Normal skin turgor Lesions: Approximately 2.5 cm brownish, slightly elevated, oval shaped lesion to his right side proximal to his axilla Rashes: no rashes Trauma: no lacerations or abrasions Wounds: no wounds Nails: normal Neuro General: patient oriented x3, gait normal and CN's II-XI intact bilaterally Cranial nerves: Yes Equal, round and reactive pupils present Cognition (Neuro): normal cognition Gait exam (Neuro): Normal gait present Motor exam (neuro): 5/5 motor strength present throughout Sensory Exam: No Sensory deficit (Neuro) Deep tendon reflexes (DTR's): Right patellar reflex intensity grade: 2+ and Left patellar reflex intensity grade: 2+ Extrem General: Yes normal to inspection, No edema and No calf tenderness. Limited ROM with extension of the left shoulder, no edema, erythema, or overt injury/trauma Psych Appearance: grossly normal Affect: normal affect Attitude: cooperative Thought process: Normal thought process present Coding Level of Care Code Est Pt Level 4 (15757) Est Pt Prev Care 40-64y(47790) Diagnoses Normal physical examination, routine Z00.00 Left shoulder pain M25.512 Skin lesion L98.9 Colon cancer screening Z12.11 Vaccine counseling Z71.85 Lumbar radiculopathy, chronic M54.16 Hyperlipidemia E78.5 Anxiety and depression F41.9; F32.A Additional Codes NICOLE-7 Assessment Billing - NICOLE-7 Assessment Tool: NICOLE-7 Assessment 13474 ([id number]) PHQ-9 - 47814 - PHQ-9 Billing: Yes ([id number]) Assessment & Plan Assessment & Plan (1) Normal physical examination, routine: Code(s): Z00.00 - Encounter for general adult medical examination without abnormal findings Category: Medical Plan: No significant functional limitation noted. Continue current treatment regimen. Follow-up in 2 months for diabetes, anxiety, and depression or sooner with symptoms or concerns. Verbalized understanding and agreed with treatment plan. (2) Left shoulder pain: Code(s): M25.512 - Pain in left shoulder Category: Medical Plan: Left shoulder pain with certain movements and extension x 2 months. No tingling, numbness, or loss of sensation. No fall, injury, or trauma. Limited ROM with extension of the left shoulder, no edema, erythema, or overt injury/trauma. Advised to take Tylenol and lidocaine patch as prescribed. X-ray of left shoulder ordered. Will review results and make changes as needed. Follow-up with worsening or new symptoms. Verbalized understanding and agreed with treatment plan. (3) Skin lesion: Code(s): L98.9 - Disorder of the skin and subcutaneous tissue, unspecified Category: Medical Plan: He has had on-itchy, painless lesion to his right side for the past several month. Approximately 2.5 cm brownish, slightly elevated, oval shaped lesion to his right side proximal to his axilla. Referred to dermatology. (4) Colon cancer screening: Code(s): Z12.11 - Encounter for screening for malignant neoplasm of colon Category: Medical Plan: Last colonoscopy was more that 5 years ago; benign polyps. He notes that he is due for a colonoscopy. Referred to [facility] gastroenterology for a colonoscopy. (5) Vaccine counseling: Code(s): Z71.85 - Encounter for immunization safety counseling Category: Medical Plan: He had 1 of 2 shingles vaccine in 06/01/2021. Encouraged to update is shingles vaccine. Verbalized understanding and agreed with the plan. (6) Lumbar radiculopathy, chronic: Code(s): M54.16 - Radiculopathy, lumbar region Category: Medical Plan: Continue current treatment regimen. He is followed by [facility] pain management. However, he was suspended from the program earlier last month due to inaccurate methadone count. He is eligible to follow-up with pain management in 10/2024. Return with worsening or new symptoms. Verbalized understanding and agreed with the plan. (7) Hyperlipidemia: Code(s): E78.5 - Hyperlipidemia, unspecified Category: Medical Plan: Recent lipid panel level was elevated in 08/2023. Advised to fast for 10-12 hours, may drink water, and perform lipid panel blood work 2-3 days before next visit. Verbalized understanding and agreed with the plan. (8) Anxiety and depression: Code(s): F41.9 - Anxiety disorder, unspecified; F32.A - Depression, unspecified Category: Medical Plan: Controlled anxiety and depressive symptoms. Continue to take sertraline as prescribed. Routine exercise encouraged. Follow-up in 2 months or sooner with symptoms or concerns. Verbalized understanding and agreed with treatment plan. Orders: Orders Microalbumin, Random (w Creat) Today Z00.00 - Encounter for general adult medical examination without abnormal findings TSH reflex Free T4 Today Z00.00 - Encounter for general adult medical examination without abnormal findings Vitamin D 25-OH Total Today Z00.00 - Encounter for general adult medical examination without abnormal findings XR shoulder LT 1V Today M25.512 - Pain in left shoulder Referrals Dermatology Referral L98.9 - Disorder of the skin and subcutaneous tissue, unspecified Gastroenterology Referral Z12.11 - Encounter for screening for malignant neoplasm of colon
[2024-05-30 08:03] VITALS: BP 130/66; PULSE 85; RESP 16; TEMP 36.5; O2SAT 99; BMI 29.0
== END 2024-05-30 08:45 | disposition home or self-care (01) ==
LOC: HO.HMCFM 07:46
PROVIDERS: PCP Nurse Practitioner Family; Visit Provider Nurse Practitioner Family
DX: Z00.00 Encounter for general adult medical examination without abnormal findings (principal); M25.512 Pain in left shoulder; M54.16 Radiculopathy, lumbar region; E78.5 Hyperlipidemia, unspecified; L98.9 Disorder of the skin and subcutaneous tissue, unspecified; Z12.11 Encounter for screening for malignant neoplasm of colon; Z71.85 Encounter for immunization safety counseling; F41.9 Anxiety disorder, unspecified; F32.A Depression, unspecified

== ENCOUNTER → 2024-05-30 07:45 | Outpatient (BNVA) | payer OTHER, SELFPAY | PROVIDERS: PCP Nurse Practitioner Family; Visit Provider Nurse Practitioner Family | DX: Z00.01 Encounter for general adult medical examination with abnormal findings (principal); M25.512 Pain in left shoulder; L98.9 Disorder of the skin and subcutaneous tissue, unspecified; M54.16 Radiculopathy, lumbar region; E78.5 Hyperlipidemia, unspecified; F41.9 Anxiety disorder, unspecified; F32.A Depression, unspecified; Z71.85 Encounter for immunization safety counseling | CPT/HCPCS: 96127; 99212; 99396 ==

== ENCOUNTER 2024-06-19 06:03 | Outpatient (REF) | payer OTHER, SELFPAY ==
--- OUTSIDE RECORDS SUMMARY | 2024-06-19 06:07 | XMS_ITS | Encounter Summary ---
Author Organization [facility] Address [address] [place] [address] Care Team Providers Care Registered Midwife Name Role Phone Unavailable Primary Care Provider Unavailabl e Encounter Details Date Type Department Care Team (Latest Contact Info) Description 11/24/2021 Abstract [facility] CONVERSIONS Dental, Provider, DDS Social History Tobacco [...] Care Team (Late st Contact Info) Description 07/02/2024 8:00 AM EDT Office Visit [facility] ADULT D[facility]AL [address] [place] [address] Jimmy Lau, TONY [address] [place] [address] documented as of this encounter Visit Diagnoses Not on filedocumented in this encounter
--- OUTSIDE RECORDS SUMMARY | 2024-06-19 06:07 | XMS_ITS | Clinical Summary ---
Author Organization [employer] [facility] Address [address] [place] [address] Care Team Providers Care Server Software Engineer Name Role Phone Unavailable Primary Care [...] Description 04/25/2024 11:00 AM EST Office Visit [facility] ADULT DENTAL [address] [place] [address] Jimmy Lau DMD Full coverage crown needed for tooth at risk for fracture (Primary Dx) 04/09/2024 8:00 AM EST Office Visit [facility] ADULT DENTAL [address] [place] [address] Jimmy Lau DMD Full coverage crown needed for tooth at risk for fracture (Primary Dx); Dental caries 04/01/2024 2:00 PM EST Office Visit [facility] ADULT DENTAL [address] [place] [address] Jimmy Lau DMD Full coverage crown needed for tooth at risk for fracture (Primary Dx) from Last 3 Months Social History Tobacco [...] Upcoming Encounters Date Type Department Care Team ([facility] st Contact Info) Description 07/02/2024 8:00 AM EDT Office Visit [facility] ADULT DENTAL [address] [place] [address] Jimmy Lau, DMD [address] [place] [address] Health Maintenance Due Date Last Done Comments [...] needed for tooth at risk for fracture Full PROPHYLAXIS - ADULT Routine 024 9:00 AM EST Partial edentulism, unspecified edentulism class BITEWINGS - 4 RADIOGRAPHIC IMAGES Routine 02/19/2024 9:00 AM EST Partial edentulism, unspecified edentulism class COMPREHENSIVE ORAL EVALUATION - NEW OR ESTABLISHED PATIENT Routine 02/19/2024 9:00 AM EST Partial edentulism, unspecified edentulism class from Last 3 Months or Most Recently Relevant to Health Maintenance Insurance [facility]
--- OUTSIDE RECORDS SUMMARY | 2024-06-19 06:07 | XMS_ITS | Patient Health Record ---
Author Organization [facility] Address [address] [place] [address] Care Team Providers Care Document Processing Specialist Name Role Phone Vaina NEW, Harshad Primary Care Provider Unavail able Vika Mendez Unavailable [phone] Allergies No Known Allergies Results Component Value [...] Problem Status W/U Status Risk Notes Problem [id number] Type 2 diabetes mellitus with polyneuropathy (E11.42) Active confirmed Vital Signs Blood pressure diastolic 87 mm Hg 10/03/2023 Height 6ft2in in 10/03/2023 Blood pressure systolic 137 mm Hg 10/03/2023 Weight 228 lbs 10/03/2023 BMI 29.27 kg/m2 10/03/2023 Encounters Encounter Location Date Provider Diagnosis [facility] [place] [address] [place] [address] 10/03/2023 Vika Mendez Tinea pedis B35.3 ; [...] Provider Name:Vika covington, 10/07/2024 09:00:00 AM, [address] [place], [address], Insurance Providers Payer Name Payer Address Payer Phone Subscriber Number Group Number Insured Name Patient Relationship to Insured Coverage Start Date Coverage End Date [facility] [employer] Claims [address] [place] [address] [phone] [id number] Sridhar Lacy Self - patient is the insured Medical (General) History Medical History History ICD Code Arthritis Depression Diabetes Surgical History Surgery Date(Month/Year)
--- OUTSIDE RECORDS SUMMARY | 2024-06-19 06:07 | XMS_ITS | Encounter Summary ---
Author Organization [employer] [facility] Address [address] [place] [address] Care Team Providers Care Journalism Intern Name Role Phone Unavailable Primary Care Provider Unavailabl e Reason for Visit * Reason Onset Date Comments rs cancelled appt 03/10/2024 Encounter Details Date Type Department Care Team (Late Contact Info) Description 03/10/2024 Telephone [facility] ADULT DENTAL [address] [place] [address] Henri Barroso [address] [place] [address] rs cancelled appt Social History Tobacco Use [...] Upcoming Encounters Date Type Department Care Team ([facility] Contact Info) Description 07/02/2024 8:00 AM EDT Office Visit [facility] ADULT DENTAL [address] [place] [address] Jimmy Lau, DMD [address] [place] [address] documented as of this encounter Visit Diagnoses Not on filedocumented in this encounter
--- OUTSIDE RECORDS SUMMARY | 2024-06-19 06:07 | XMS_ITS ---
Author Organization [facility] Address [address] [place] [address] Care Team Providers Care Senior Process Control Tech Name Role Phone Vania NEW, Harshad Primary Care Provider Unavail able Vika Mendez Unavailable [phone] Allergies No Known Allergies REASON FOR VISIT [...] an other tobacco user? No Vital Signs Blood pressure systolic 137 mm Hg 10/03/19 24 Blood pressure diastolic 87 mm Hg 024 Height 6ft2in in 10/03/2023 Weight 228 lbs 10/03/2023 BMI 29.27 kg/m2 10/03/2023 Encounters Encounter Location Date Provider Diagnosis [facility] [address] [address] 10/03/2023 Vika Mendez Tinea pedis B35.3 ; [...] Reason: Provider Name:Vika covington, 10/07/2024 09:00:00 AM, [address] [place] [address], [id number], Procedure Notes * Category Sub-Category Detail Notes Keratoma Treatment Parring or Cutting o f Benign Hyperkeratotic Lesion(s) 19314 ( 2-4 Lesions ) - The Benign hyperkeratotic lesions, as described above were pared, and/or cut utilizing a sterile 15 blade, tissue nippers, and/or dremel Progress Notes * Sridhar LACYDOB: 3 (63 yo M)Acc No.[id number]:10/03/2023 Progress Note Patient:?Sridhar LACY Provider:?Vika Mendez DPM :[id number]???Age:63 Y???Sex:Male Santy e:10/03/2023 Address:[address] [place], [place] [id number] Pcp:Harshad Caro NP Subjective: * Chief Complaints: [...] Procedures:?Keratoma Treatment:?Parring or Cutting of Benign Hyperkeratotic Lesion(s)?72487 ( 2-4 Lesions ) - The Benign hyperkeratotic lesions, as described above were pared, and/or cut utilizing a sterile 15 blade, tissue nippers, and/or dremel.? * Procedure Codes:?87562 TRIM SKIN LESIONS, 2 TO 4, Modifiers: [...] Mendez DPM Date:? Generated for Holly voss/Jennifer/eTransmitting on:?06/19/2024 06:07 AM EDT History and Physical Notes * [...]
[2024-06-19 08:07] LABS: PSA,Total (Free>4and<10) 0.77 ng/mL (0.00-4.00)
[2024-06-26 14:19] LABS: Testosterone, Free 188.4 pg/mL (35.0-155.0); Testosterone, Total 638 ng/dL (250-1100)
== END 2024-06-19 06:04 | disposition home or self-care (01) ==
LOC: HO.LAB 06:03
PROVIDERS: PCP Nurse Practitioner Family; Visit Provider Urology
DX: Z79.890 Hormone replacement therapy (principal); Z12.5 Encounter for screening for malignant neoplasm of prostate
CPT/HCPCS: 36415; 84153; 84402; 84403; 85014

== ENCOUNTER 2024-07-03 07:30 | Outpatient (AMB) | payer OTHER, SELFPAY ==
--- NOTE | 2024-07-02 18:51 | A.OFFVIS_ITS ---
Intake Visit Reasons: 3m/labs Student Services Representative Required: No Allergies fentanyl Allergy (Intermediate, Verified 05/30/24 08:21) itching morphine [Amber] Allergy (Intermediate, Verified 05/30/24 08:21) itch Iodinated Contrast Media [IV Dye, Iodine Containing] Allergy (Mild, Verified 05/30/24 08:21) DIFFICULTY BREATHING,VOMITING amoxicillin [From Augmentin] Adverse Reaction (Intermediate, Verified 05/30/24 08:21) Diarrhea clavulanic acid [From Augmentin] Adverse Reaction (Intermediate, Verified 05/17 07/11 08:21) Diarrhea metformin Adverse Reaction (Intermediate, Verified 05/30/24 08:21) stomach pain HPI Comments Details: 07/03/24-- Results: PSA--06/19/24--0.77, TT-638, FT-188 US renal 12/23/2023-- 6 mm nonobstructing left lower pole renal calculus. 03/24/24--Sridhar is here for follow-up. He has been evaluated due to low testosterone, Comorbidity methadone use. CoMorbidity Diabetes. Reviewed labs - 03/03/2024--TT--263ng/dL, FT 42.1. Hemoglobin 40 4.8% Blood work levels remain low normal however Sridhar states that he feels the testosterone replacement is working well he is getting normal erections and feels increased energy. Hematocrit is within normal limits. Will continue same dosage. group home testosterone replacement. Will prescribe the AndroGel daily. Follow-up in 3 months with repeat labs. Renal ultrasound in 9 months. 11/29/23--Sridhar is here for follow-up. He has been evaluated due to low testosterone, Comorbidity methadone use. CoMorbidity Diabetes. 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 11/20/23--Hct- 42.1%, T- testosterone 222ng/dL, F-test-24.2. The patient states that sometimes he forgets to use the injection, he states he has been prescribed the gel in the past and that mode of therapy worked better for him. Will prescribe the AndroGel daily. Follow-up in 3 months with repeat labs. 08/27/23---Sridhar is here for follow-up. He has been evaluated due to low testosterone, Comorbidity methadone use. c/o's of ED. CoMorbidity Diabetes. He had a renal ultrasound a year ago noting is low. Left kidney stone. He is here to review recent ultrasound results discussed renal ultrasound 08/17/2023 - No kidney stones noted. PSA 06/26/2023--PSA 0.66. The patient did not have the testosterone refilled. Will refill testosterone replacement medication he is instructed to have labs done in 2 months for free and total testosterone and hematocrit. 06/28/2023-- Sridhar is a 62-year-old male who presents today to the office for follow up to review lab results, I have reviewed PSA 06/26/2023--0.66 ng/mL. CBC is within normal limits. Testosterone levels are pending. The patient did not have the renal ultrasound done to follow-up on management for kidney stones. Sridhar states that when he uses the Viagra 50 mg he does not get adequate effect. He states that he ordered a medication online that seems to work better. I asked him what was the medication he stated that he did not know. I have advised him to avoid using medications ordered online. I have discussed increasing the Viagra to 100 mg. Plan-testosterone levels are pending I will wait for these results before refilling testosterone replacement therapy. Renal ultrasound ordered. Follow- up in 3 months to recheck lab work and follow-up on ultrasound. Viagra 100 mg p.r.n. prior to sexual activity. Side effects discussed including erection longer than 4 hours to seek immediate emergency room attention. 02/26/2023--Sridhar is a 62 year old male with complaint of difficulty maintaining and erection.? IIEF - 5 score 8. in a monagamous relationship, able to achieve an erection for penetration, --complains of early ejaculation then sometimes able to get an erection sometimes not successful --states is causing him to be anxious about the situation, states order some meds online --(testosterone boosters and another med to help erections which seemed to help) He denies Urgency or obstructive voiding symptoms, denies dysuria CoMorbidities- Diabetes, h/o narcotic use on methadone I reviewed Repeat Testosterone levels: 01/19/23-- TT- 158, FT- 25 He was initially evaluated on 05/01/2022 as a new patient for erectile dysfunction and complaints of premature ejaculation. He was prescribed Paxil 20 mg and Viagra 50 mg to use prior to intercourse prn. He developed nausea secondary to taking Paxil 20 mg so is not taking this med. he is on methadone.?- trial of paxil 20 mg daily-pt stopped. Viagra 50 (1/2-1 tab prn 30 minutes prior to intercourse) Plan--Failed Testosterone 20.25 mg per 1.25 gram pump, Depo Testosterone ordered. Viagra prn. Follow up in 4 months to recheck testosterone level. left kidney stone, FU renal US Imagin11/26/20-CTKUB --left kidney stone 5 mm?? renal US results from 10/19/22 which revealed 6 mm non obstructive left lower pole kidney stone. Review of labs: 10/19/2022 revealed PSA?0.61, total testosterone 215 which is low, and free testosterone 40.99 which is low normal. [facility] Medical History (Updated 05/30/24 @ 14:06 by Eldon Caro CNP) Colon cancer screening Laboratory tests ordered as part of a complete physical exam (CPE) Screening PSA (prostate specific antigen) Pre-op examination Left otitis media Weight loss, abnormal Nausea Irritable bowel syndrome with diarrhea Normal routine history and physical examination Low back pain BPH (benign prostatic hyperplasia) Poison derek dermatitis Hx of iron deficiency anemia Lumbar spondylosis Iron deficiency anemia Normal physical exam Anemia Sepsis Acute respiratory failure with hypoxia Pneumonia History of COVID-19 History of 2019 novel coronavirus disease (COVID-19) High cholesterol Arthritis Diabetes Contact dermatitis Narcotic drug use DMII (diabetes mellitus, type 2) Elevated liver transaminase level Lumbar radiculopathy, chronic Lumbar spinal stenosis Cervical radiculopathy Lumbar post-laminectomy syndrome Surgical History History of esophagogastroduodenoscopy (EGD) H/O colonoscopy History of elbow surgery History of lumbar fusion History of cholecystectomy Family History Father Liver problem Alcoholism Substance use disorder Mother No problems noted. Brother CAD (coronary artery disease) Social History Household Members: Family Housing: House Do you presently have visiting nurse or other home services: No Alcohol intake: never Patient Tobacco Use Status: Former Tobacco user Cigarette Packs Per Day: 0.5 Cigarettes Per Day: 10 Years Smoked: 10 e-Cigarette/Vaping Use: Never Used Second Hand Smoke Exposure: No service: No Current occupational status: disabled Current occupational exposures/hazards: No Cognitive needs: No (cane) Hearing needs: No Vision needs: Yes (reading glasses) Results AMB Urinalysis, Automated UA Leukoctes 0 Rashard/uL Last Edit by [employer] on 07/03/24 08:28 UA Nitrite Last Edit by [employer] on 07/03/24 08:28 UA Urobilinogen 0.2 mg/dL Last Edit by [employer] on 07/03/24 08:28 UA Protein 15 mg/dL Last Edit by [employer] on 07/03/24 08:28 UA pH 6.0 Last Edit by [employer] on 07/03/24 08:28 UA Blood 0 Maverick/uL Last Edit by [employer] on 07/03/24 08:28 UA Specific [place] 1.025 Last Edit by [employer] on 07/03/24 08:28 UA Ketone Last Edit by [employer] on 07/03/24 08:28 UA Bilirubin 0 mg/dL Last Edit by [employer] on 07/03/24 08:28 UA Glucose 500 mg/dL Last Edit by [employer] on 07/03/24 08:28 Results Reviewed Results Reviewed: Date of Service: 12/23/23 CT ABDOMEN AND PELVIS WITHOUT CONTRAST CLINICAL INFORMATION: Right-sided flank pain COMPARISON: Renal ultrasound August 17, 2023, abdominal ultrasound February 24, [address] abdomen and pelvis February 25, 2021 TECHNIQUE: Multidetector volumetric imaging was performed from the superior aspect of the liver through the pubic symphysis. Sagittal and coronal reformatted images were obtained on the technologist's workstation. This CT examination was performed using dose optimization techniques as appropriate, variously including the following: *Automated exposure control *Adjustment of mA and/or kV according to patient size (this includes techniques or standardized protocols for targeted exams where dose is matched to indication/reason for exam; i.e. extremities or head) *Use of iterative reconstruction technique DLP: 759 mGy-cm FINDINGS: Visualized lung bases are well aerated. The liver is mildly enlarged and demonstrates diffusely decreased attenuation. The gallbladder is surgically absent. The pancreas, spleen and adrenal glands are unremarkable. Small splenules. Symmetrically sized kidneys. There is a 6 mm nonobstructing stone within the lower pole of the left kidney. No right-sided renal calculi. There is no hydronephrosis of either kidney. The stomach is decompressed. Normal caliber loops of small and large bowel. Mild colonic stool burden. Normal appendix. Normal caliber abdominal aorta demonstrating mild atherosclerotic disease. No retroperitoneal lymphadenopathy. Tiny fat-containing umbilical hernia. The bladder is decompressed and therefore not accurately characterized. The prostate gland is mildly enlarged. No gross free pelvic fluid. No inguinal lymphadenopathy. Date of Service: 10/19/22 EXAMINATION: US RETROPERITONEAL LIMITED (RENAL ONLY) CLINICAL INFORMATION: Calculus of kidney. COMPARISON: Renal ultrasound 06/09/2022. Ultrasound abdomen limited 02/24/2022. CT abdomen and pelvis 11/26/2020. X-ray KUB 09/20/2018 and 06/20/2014. FINDINGS: RIGHT KIDNEY: 11.7 x 5.8 x 6.3 cm (SAG x AP x TRV). The kidney is normal in size, contour, and echogenicity. Renal cortical thickness is normal. No calculi or focal parenchymal lesions. No hydronephrosis. LEFT KIDNEY: 11.8 x 6.8 x 5.4 cm (SAG x AP x TRV). The kidney is normal in size, contour, and echogenicity. Renal cortical thickness is normal. No focal parenchymal lesions or hydronephrosis. 6 x 3 x 6 mm lower pole not shadowing echogenicity is identified. IMPRESSION: Question 6 mm nonobstructing left lower pole renal calculus. Assessment & Plan Assessment & Plan Orders: Orders AMB Urinalysis Automated Today Z13.9 - Encounter for screening, unspecified Coding
--- OUTSIDE RECORDS SUMMARY | 2024-07-03 07:34 | XMS_ITS | Patient Health Record ---
Author Organization [facility] Address [address] [facility] [place] [address] Care Team Providers Care Fiber Optic Splicer Name Role Phone Vania NEW, Harshad Primary Care Provider Unavail able Vika Mendez Unavailable [phone] Allergies No Known Allergies Results Component Value [...] Problem Status W/U Status Risk Notes Problem 15426702 Type 2 diabetes mellitus with polyneuropathy (E11.42) Active confirmed Vital Signs Blood pressure diastolic 87 mm Hg 10/03/2023 Height 6ft2in in 10/03/2023 Blood pressure systolic 137 mm Hg 10/03/2023 Weight 228 lbs 10/03/2023 BMI 29.27 kg/m2 10/03/2023 Encounters Encounter Location Date Provider Diagnosis [facility] [address] [place] [address] 10/03/2023 Vika Mendez Tinea pedis B35.3 ; [...] Provider Name:Vika covington, 10/07/2024 09:00:00 AM, [address] [place], [address], Insurance Providers Payer Name Payer Address Payer Phone Subscriber Number Group Number Insured Name Patient Relationship to Insured Coverage Start Date Coverage End Date [facility] Claims [address] [place] [phone] [id number] Sridhar Lacy Self - patient is the insured Medical (General) History Medical History History ICD Code Arthritis Depression Diabetes Surgical History Surgery Date(Month/Year)
--- OUTSIDE RECORDS SUMMARY | 2024-07-03 07:34 | XMS_ITS ---
Author Organization [facility] Address [address] [address] Care Team Providers Care Senior Network Engineer Name Role Phone Vania NEW, Harshad Primary Care Provider Unavail able Vika Mendez Unavailable [phone] Allergies No Known Allergies REASON FOR VISIT [...] 10/03/2023 Encounters Encounter Location Date Provider Diagnosis [facility] [address] [address] 10/03/2023 Vika Mendez Tinea pedis B35.3 ; [...] Reason: Provider Name:Vika covington, 10/07/2024 09:00:00 AM, [address] [place] [address], [phone], Procedure Notes * Category Sub-Category Detail Notes Keratoma Treatment Parring or Cutting o f Benign Hyperkeratotic Lesion(s) 47631 ( 2-4 Lesions ) - The Benign hyperkeratotic lesions, as described above were pared, and/or cut utilizing a sterile 15 blade, tissue nippers, and/or dremel Progress Notes * Sridhar LACYDOB: 3 (63 yo M)Acc No.[id number]:10/03/2023 Progress Note Patient:?Sridhar LACY Provider:?Vika Mendez DPM :1960???Age:63 Y???Sex:Male Santy e:10/03/2023 Address:[address] [place], [place] [id number] Pcp:Harshad Caro NP Subjective: * Chief Complaints: [...] Procedures:?Keratoma Treatment:?Parring or Cutting of Benign Hyperkeratotic Lesion(s)?46279 ( 2-4 Lesions ) - The Benign hyperkeratotic lesions, as described above were pared, and/or cut utilizing a sterile 15 blade, tissue nippers, and/or dremel.? * Procedure Codes:?88352 TRIM SKIN LESIONS, 2 TO 4, Modifiers: [...] Mendez DPM Date:? Generated for Holly voss/Jennifer/eTransmitting on:?07/03/2024 07:33 AM EDT History and Physical Notes * [...]
== END 2024-07-03 08:15 | disposition home or self-care (01) ==
LOC: HO.HUSH 07:31
PROVIDERS: PCP Hospitalist; Visit Provider Urology
DX: Z13.9 Encounter for screening, unspecified (principal)

== ENCOUNTER → 2024-07-03 07:30 | Outpatient (BNVA) | payer OTHER, SELFPAY | PROVIDERS: PCP Hospitalist; Visit Provider Urology | DX: N20.0 Calculus of kidney (principal); N52.9 Male erectile dysfunction, unspecified; R79.89 Other specified abnormal findings of blood chemistry; Z79.890 Hormone replacement therapy | CPT/HCPCS: 81003; 99212 ==

== ENCOUNTER 2024-09-08 06:05 | Outpatient (REF) | payer OTHER, SELFPAY ==
--- OUTSIDE RECORDS SUMMARY | 2020-09-30 04:45 | XMS_ITS | Continuity of Care Document ---
Author Organization [facility] Address [address] [place] [address] Care Team Providers Care Lathing Supervisor Name Role Phone Gen Garcia APRN Unavailable Unavailable Allergies, Adverse Reactions, Alerts Substance Reaction Status Criticality IODINE Active No Information Medications Medication Instructions Dosage Effective Dates (start - stop) Status Comments methadone 5 mg tablet take 1 tablet by oral route every 12 hours 5 MG - Active NONACUTE PAIN to be filled SEPTEMBER 08 2020 Narcan 4 mg/actuation nasal spray spray 0.1 milliliter by intranasal route in 1 nostril may repeat dose every 2-3 minutes as needed alternating nostrils with each dose 4 MG - Active Cymbalta 30 mg capsule,delayed release take 1 capsule by oral route 2 times every day 30 MG - Active Start taking 1 capsule in the evening for 7 days, then increase to BID methadone 5 mg tablet take 1 tablet by oral route every 12 hours 5 MG - Active rosuvastatin 20 mg tablet take 1 tablet by oral route every day 20 MG - Active Tradjenta 5 mg tablet take 1 tablet by oral route every day 5 MG - Active Vitamin D2 1,250 mcg (50,000 unit) capsule - Active Procedures Procedure Date Encounter Created In Error OFFICE/OUTPATIENT VISIT, EST OFFICE/OUTPATIENT VISIT, EST Foll-up eval q3mo opiod tx OFFICE/OUTPATIENT VISIT, EST Foll-up eval q3mo opiod tx OFFICE/OUTPATIENT VISIT, EST Foll-up eval q3mo opiod tx Duplicate Encounter OFFICE/OUTPATIENT VISIT, NEW Foll-up eval q3mo opiod tx DRUG TEST PRSMV CHEM ANLYZR Advance Directives Directive Yes / No Effective Date File Name No Information Encounters Encounter Description Practice Location Reason(s) For Visit Diagnoses Date Provider Providers Copied on Encounter [facility], [address], [place], [place], [id number] , [facility] No Information 1 Joes Blevins. [address] [place] [address], [id number], . tel:[phone] Referring Provider: Gen Garcia, [address] [place] [address], [id number] . tel:[phone] OFFICE/OUTPA TIENT VISIT, [facility], [address], [place], [place], [id number] , [facility] back pain (chief complaint) Chronic pain syndromeRadicul opathy, lumbar regionPostlamin ectomy syndrome, not elsewhere classifiedLong term (current) use of opiate analgesic 1 Jose Blevins. [address] [place] [address], [id number], . tel:[phone] Referring Provider: Gen Garcia, [address] [place] [address], [id number] . tel:[phone] OFFICE/OUTPA TIENT VISIT, EST [facility], [address], [place], [place], [id number] , [facility] low back pain (chief complaint) Chronic pain syndromePostlam inectomy syndrome, not elsewhere classifiedRadic ulopathy, lumbar regionLong term (current) use of opiate analgesic 1 Jose Blevins. [address] [place] [address], [id number], . tel:[phone] Referring Provider: Gen Garcia, [address] [place] [address], [id number] . tel:[phone] OFFICE/OUTPA TIENT VISIT, [facility], [address], [place], [place], [id number] , [facility] No Information 1 Pérez Jung. [address] [place] [address], [id number], . tel:[phone] Referring Provider: Tori Aguayo, [address] [place] [address], [id number] . tel:[phone] [facility], [address], [place], [place], [id number] , [facility] back pain (chief complaint) Body mass index (BMI) 29.0-29.9, adultRadiculopa thy, lumbar regionPostlamin ectomy syndrome, not elsewhere classifiedLong term (current) use of opiate analgesic 1 Pérez Jung. [address] [place] [address], [id number], . tel:[phone] OFFICE/OUTPA TIENT VISIT, [facility], [address], [place], [place], [id number] , [facility] back pain (chief complaint) Body mass index (BMI) 29.0-29.9, adultRadiculopa thy, lumbar regionOther terminal block assembler (current) drug therapyLumbagoP ostlaminectomy syndrome, not elsewhere classifiedDepre ssion 1 Dede Valle. [address] [place] [address], [id number], . tel:[phone] Referring Provider: Tori Aguayo, [address] [place] [address], [id number] . tel:[phone] Family History Family Member Type Diagnosis Age At Onset No Information Payers Payer name Insurance type Covered constitution party ID Authorjareta april(s) [facility] Plans Medicaid [id number] Social History Type Description Quantity Date Captured Comments Sex Male Smoking Status No Information Chief Complaint And Reason For Visit No Information Reason For Referral Reason For Referral No Information Plan Of Treatment Date Type Action Status Goal Dietary management education , guidance, and counseling completed Goal Dietary management education , guidance, and counseling completed Referral Ordered: Jett Barron -Clinical Psychology (related to Postlaminectomy syndrome, not elsewhere classified) ordered Referral Referred To: Jett Barron [address] [facility]
[address] [place], [place], [id number] Ordered: Referrals: Clinical Psychology. Jett Barron. Evaluate and treat ordered History Of Present Illness Encounter Date Complaint History Of Prese nt Illness back pain Onset: gradual w ithout injury. Severity level is 9. Duration: > 1 hour. The problem is stable. It occurs persistently. Location of pain is lower back and neck. Pain is radiated to the left ankle, right ankle, left calf, right calf, left foot, right foot, left thigh and right thigh.The patient describes the pain as an ache and discomforting. Symptoms are aggravated by daily activities. Symptoms are relieved by pain meds/drugs. low back pain Onset: gradual w ithout injury. Severity level is 7. Duration: > 1 hour. The problem is stable. It occurs persistently. Location of pain is lower back. Pain is radiated to the left ankle, right ankle, left calf, right calf, left foot, right foot, left thigh and right thigh.The patient describes the pain as an ache, burning and discomforting. Symptoms are aggravated by daily activities. Symptoms are relieved by pain meds/drugs. back pain Onset: gradual w ithout injury. Severity level is moderate-severe. Duration: > 1 hour. The problem is stable. It occurs persistently. Location of pain is lower back. Pain is radiated to the Bilateral leg.The patient describes the pain as an ache and sharp. Symptoms are aggravated by bending, daily activities, lifting, standing, twisting and walking. Symptoms are relieved by lying down, pain meds/drugs, stretching, rest and sitting. back pain Onset: gradual w ithout injury. Severity level is moderate. Duration: > 1 hour. The problem is stable. It occurs persistently. Location of pain is lower back. Pain is radiated to the left ankle, right ankle, left calf, right calf, left foot, right foot, left thigh and right thigh.The patient describes the pain as an ache, discomforting and numbness. Symptoms are aggravated by bending, changing positions, daily activities, extension, flexion, pushing, standing, twisting and walking.The patient denies relieving factors. Additional information: Right Hemisphere brito lulu for imaging. Functional Status Date Functional Assessmen t No Information Instructions Date Instruction Additional Infor maximo We will obtain L-spine MRI repor t. Related to Radiculopathy, lumbar region Opioid consent will be signed today.Patient advised that records from prior treating physicians must be obtained and reviewed through this office before initiation of opioid therapy will be considered.Recommended patient seek out a methadone/Suboxone clinic to carry him over until records are able to be obtained in this office. 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 All questions were encouraged and answered. Will consider at a later date.Advised patient to proceed with obtaining psychological clearance for consideration of SCS trial. Related to Postlaminectomy syndrome, not elsewhere classified I will follow up wit h patient in 2 weeks. Related to Body mass index (BMI) 29.0-29.9, adult Dietary management e ducation, guidance, and counseling Related to Body mass index [BMI] 29.0-29.9, adult Patient was previous ly seeing psychologist and psychiatrist when residing in [place] and is pending establishing with psychiatrist in [facility]. Related to Depression Patient had L-MRI w/ and w/out contrast from [facility] this month and will call to retrieve report. -Will also retrieve records from previous pain management physician in [place], Dr. Carlos Eduardo Baxter and PCP in [place] ,Dr. Isela Ramirez. -Also obtain records from PCP in [facility]- Dr. Sal Mendiola.Patient will call PCP for renewal of methadone prescription as he is aware we cannot prescribe any narcotics until UDS sample results.Will prescribe Cymbalta 30mg BID and patient advised to start with 1 capsule in the evening for 7 days, then increase to BID. Related to Radiculopathy, lumbar region States that he had p reviously discussed SCS with pain management in [place], but then moved to [place]. States that he has hardware to lumbar spine. Discussed SCS w/ patient and literature provided.Will also provide patient with referral to clinical psychologist for SCS trial/implant evaluation. Related to Postlaminectomy syndrome, not elsewhere classified E-FORCSE and UDS wer e analyzed for clinical management and judgment. No aberrant behavior detected on today's assessment.Information on nonopioid alternatives for the treatment of pain has been discussed with patient today.UDS Green- no evidence of aberrant behavior. UDS green is tested 1-2x every 12 months.--Ordering presumptive UDS to assess for prescribed/non-prescribed medications and any illicit substances This is initial baseline UDS.Patient's opiate risk tool score is: 3 which puts them at *LOW RISK* for future opioid abuse.CAGE questionnaire score: 0 Related to Other fci (current) drug therapy Dietary management e ducation, guidance, and counseling Related to Body mass index [BMI] 29.0-29.9, adult Assessments Type Assessment Date No Information Patient Care Teams Name Effective Dates (start - stop) Status Members No Information
[2024-09-08 07:45] LABS: Estimated Average Glucose 151 mg/dL; Hemoglobin A1c % 6.9 % (<6.0)
[2024-09-08 08:06] LABS: Cholesterol 211 mg/dL (<200); HDL Cholesterol 37 mg/dL (>40); LDL Cholesterol Calculated 146 mg/dL (<100); Triglycerides 143 mg/dL (<150)
[2024-09-08 08:25] LABS: TSH reflex Free T4 0.88 uIU/mL (0.32-4.0); Vitamin D 25-OH Total 17.4 ng/mL (>30)
[2024-09-08 08:28] LABS: Creatinine Urine 192.65 mg/dL; Microalbum/Creatinine Ratio Ur 5.1 ug/mg cr (<30)
== END 2024-09-08 06:06 | disposition home or self-care (01) ==
LOC: HO.LAB 06:05
PROVIDERS: PCP Nurse Practitioner Family; Visit Provider Nurse Practitioner Family
DX: Z00.00 Encounter for general adult medical examination without abnormal findings (principal); E78.5 Hyperlipidemia, unspecified; E11.9 Type 2 diabetes mellitus without complications
CPT/HCPCS: 36415; 80061; 82043; 82306; 82570; 83036; 84443

== ENCOUNTER 2024-11-04 11:15 | Outpatient (AMB) | payer OTHER, SELFPAY ==
--- OUTSIDE RECORDS SUMMARY | 2024-10-07 05:00 | XMS_ITS ---
Author Organization [facility] Address [address] [facility] [place] [address] Care Team Providers Care Telegraph Office Manager Name Role Phone Vania NEW, Harshad Primary Care Provider Unavail able Vika Mendez Unavailable [phone] Medications Medication SIG (Take, Route, Frequency, Duration) [...] Active Encounters Encounter Location Date Provider Diagnosis [facility] [address] [address] 10/07/2024 Vika Mendez Plan Of Treatment Next Appt Details Provider Name:Vika Nadya covington, 01/07/2025 09:15:00 AM, [address] [place] [address], [phone], Progress Notes * Sridhar LACYDOB: [birth year] (64 yo M)Acc No.[id number]:10/07/2024 Progress Note Patient: Sridhar ALEX Provider: Maxwell Mendez DPM :1960 A ge:64 Y S ex:Male Date:10/07/2024 Address:[address] [place], [place] [id number] Pcp:Harshad Caro NP Subjective: * Chief Complaints: [...] as directed Externally , Notes to Pharmacist: bri, Not-Taking/PRN Diclofenac Potassium 50 MG Tablet 1 [...] 0 10/07/2024 Generated for Holly voss/Jennifer/Leonela on: 0 11/04/2024 12:47 PM EDT
--- NOTE | 2024-11-04 11:20 | A.OFFPC_ITS ---
Vital Signs 11/04/24 11:27 11/04/24 11:58 Height 6 ft 2 in Weight 225 lb BMI 28.9 BP 132/70 120/60 Blood Pressure Location Rt brachial Rt brachial Position Sitting Sitting Respiration 16 Pulse 92 Pulse Source Pulse Oximeter Temp 97.9 F Temp Source Oral Pulse Oximetry (%) 95 Oxygen Delivery Method Room Air Intake Visit Reasons: 2 mos DM, anxiety, depression Intake Note: patient here for 2 month follow up for DM, anxiety and depression. patient would like a new script for Narcan the one he has . Key Bed Installer Required: No Allergies fentanyl Allergy (Intermediate, Verified 11/04/24 11:41) itching morphine (Amber) Allergy (Intermediate, Verified 11/04/24 11:41) itch Iodinated Contrast Media (IV Dye, Iodine Containing) Allergy (Mild, Verified 11/04/24 11:41) DIFFICULTY BREATHING,VOMITING amoxicillin (From Augmentin) Adverse Reaction (Intermediate, Verified 11/04/24 11:41) Diarrhea clavulanic acid (From Augmentin) Adverse Reaction (Intermediate, Verified 11/04/24 11:41) Diarrhea metformin Adverse Reaction (Intermediate, Verified 11/04/24 11:41) stomach pain Medication List - Last Reconciled 11/04/24 by Eldon Caro CNP acetaminophen (Tylenol Extra Strength) 500 mg PO Q6H PRN blood sugar diagnostic (FreeStyle Lite Strips) POC 4 times daily blood-glucose meter (FreeStyle Lite Meter kit) check blood sugars daily and pern fenofibrate 54 mg PO DAILY 90 days fluticasone propionate 50 mcg/actuation (Flonase Allergy Relief) 1 spray intranasal Q12H gabapentin 300 mg PO BID 90 days insulin syringe-needle U-100 (Advocate Syringes) As directed lancets (FreeStyle Lancets) POC testing 4 times daily lidocaine 5% 1 patch topical DAILY linagliptin (Tradjenta) 5 mg PO DAILY meloxicam 15 mg PO DAILY PRN 30 days naloxone 4 mg/actuation (Narcan) 4 mg intranasal Q2M PRN omeprazole 40 mg PO DAILY safety needles (BD Eclipse Luer-Pilo) As directed for biweekly injection (injecting needle)- 2 per month sertraline 25 mg PO DAILY syringe with cannula,disposabl As directed for biweekly Testosterone injection- 2 per month syringe with needle (BD Luer-Pilo Syringe) As directed testosterone 2 pumps topical DAILY 30 days Tobacco use date assessed: 11/04/24 Dental Screening Dental Screen Date: 11/04/24 Did you have a dental visit in the last 12 months?: Yes Did you have a dental problem in the last 6 months where you did not have access to dental care?: No Was dental information given to patient?: Patient has dentist HPI HPI Comments History of Present Illness Details 64-year-old male presents for diabetes, anxiety, and depression follow- up. He admits to taking his medications as prescribed without adverse reactions. He notes that he has been making healthy lifestyle changes. Reports controlled anxiety and depressive symptoms. Reports difficulty falling and staying asleep a times. He notes that his told him he snores when he sleeps. He requests a sleep eval. [facility] Medical History (Updated 11/04/24 @ 12:07 by Eldon Caro CNP) Colon cancer screening Laboratory tests ordered as part of a complete physical exam (CPE) Screening PSA (prostate specific antigen) Pre-op examination Left otitis media Weight loss, abnormal Nausea Irritable bowel syndrome with diarrhea Normal routine history and physical examination Low back pain BPH (benign prostatic hyperplasia) Poison derek dermatitis Hx of iron deficiency anemia Lumbar spondylosis Iron deficiency anemia Normal physical exam Anemia Sepsis Acute respiratory failure with hypoxia Pneumonia History of COVID-19 History of 2019 novel coronavirus disease (COVID-19) High cholesterol Arthritis Diabetes Contact dermatitis Narcotic drug use DMII (diabetes mellitus, type 2) Elevated liver transaminase level Lumbar radiculopathy, chronic Lumbar spinal stenosis Cervical radiculopathy Lumbar post-laminectomy syndrome Surgical History History of esophagogastroduodenoscopy (EGD) H/O colonoscopy History of elbow surgery History of lumbar fusion History of cholecystectomy Family History Father Liver problem Alcoholism Substance use disorder Mother No problems noted. Brother CAD (coronary artery disease) Social History Household Members: Family Housing: House Do you presently have visiting nurse or other home services: No Alcohol intake: never Patient Tobacco Use Status: Former Tobacco user Cigarette Packs Per Day: 0.5 Cigarettes Per Day: 10 Years Smoked: 10 e-Cigarette/Vaping Use: Never Used Second Hand Smoke Exposure: No service: No Current occupational status: disabled Current occupational exposures/hazards: No Cognitive needs: No (cane) Hearing needs: No Vision needs: Yes (reading glasses) Questionnaire PHQ-9 Over the last 2 weeks, how often have you been bothered by any of the following problems? 1. Little interest or pleasure in doing things: several days 2. Feeling down, depressed, or hopeless: more than half the days 3. Trouble falling or staying asleep, or sleeping too much: more than half the days 4. Feeling tired or having little energy: several days 5. Poor appetite or overeating: several days 6. Feeling bad about yourself - or that you are a failure or have let yourself or your family down: several days 7. Trouble concentrating on things, such as reading the newspaper or watching television: several days 8. Moving or speaking so slowly that other people could have noticed. Or the opposite - being so fidgety or restless that you have been moving around a lot more than usual: several days 9. Thoughts that you would be better off or of hurting yourself in some way: not at all Total score: 10 Depression Screening Interpretation: Positive Depression Screening Follow-up: Existing condition and In treatment Depression Screening Done: Yes 37736 - PHQ-9 Billing: Yes Source: Developed by Drs. Enrico Chiang, Kassandra Neville, Farhat Pandey and colleagues, with an educational mann from [employer]. Thrive Questionnaire Date Thrive assessed: 04/29/24 NICOLE-7 AMB Questionnaire NICOLE-7 Date NICOLE - 7 assessed: 11/04/24 Feeling nervous, anxious, or on edge: 2 = More than half the days Not being able to stop or control worryin = Several days Worrying too much about different things: 1 = Several days Trouble relaxin = Several days Being so restless that it is hard to sit still: 1 = Several days Becoming easily annoyed or irritable: 1 = Several days Feeling afraid as if something awful might happen: 1 = Several days Total NICOLE-7 score (0-4 normal; 5-9 mild; 10-14 moderate; 15-21 severe): 8 Source: Developed by Drs. Enrico Chiang, Kassandra Neville, Farhat Pandey and colleagues, with an educational mann from [employer]. NICOLE-7 Assessment Billing NICOLE-7 Assessment Tool: NICOLE-7 Assessment 65762 Review of Systems Const Details: Const Denies chills, Denies fatigue, Denies fever(s), Denies headache(s) and Denies weakness ENT Denies dizziness and Denies headache(s) Card Denies chest pain, Denies lightheadedness, Denies dyspnea and Denies other (Palpitations) Resp Denies cough, Denies dyspnea, Denies wheezing and Denies other ( shortness of breath) GI Denies abdominal pain, Denies melena, Denies hematochezia, Denies change in bowel habits, Denies dyspepsia and Denies nausea Denies hematuria and Denies dysuria Musc Denies abnormal gait, Denies myalgias, Denies arthralgias, Denies numbness and Denies tingling Skin/Breast Denies rash, Denies unusual bruising and Denies wounds Neuro Denies abnormal gait, Denies dizziness, Denies headache(s), Denies memory loss, Denies numbness, Denies Sensory deficit (Neuro), Denies tingling and Denies weakness Psych Denies anxiety, Denies depression, Denies memory loss Endo Denies cold intolerance, Denies fatigue, Denies heat intolerance, Denies po lydipsia and Denies polyuria Aller/Immun Denies wheezing Physical exam (Primary Care) Vital Signs: Last Vital Signs Temp 97.9 F 11/04/24 11:27 Pulse 92 11/04/24 11:27 Resp 16 11/04/24 11:27 BP 120/60 11/04/24 11:58 Pulse Ox 95 11/04/24 11:27 Oxygen Delivery Method Room Air 11/04/24 11:27 BMI result Body Mass Index 28.9 Tobacco/Smoking Status: Tobacco use Status Tobacco use date assessed 11/04/24 11/04/24 11:32 Patient Tobacco Use Status Former Tobacco user 11/04/24 11:23 e-Cigarette/Vaping Use Never Used 11/04/24 11:23 PHQ-9: PHQ-9 Score PHQ-9: Total score 10 11/04/24 16:35 Depression Screening Interpretation: Positive Depression Screening Follow-up: Existing condition and In treatment Thrive Assessment: Date of Thrive Assessment Date Thrive assessed 04/29/24 11/04/24 11:23 Const Other: General: no acute distress and well developed Nutritional Appearance: well nourished Orientation/consciousness: [facility]: Yes normocephalic and Yes atraumatic Eyes General: appearance normal, both eyes and all related structures Pupils: Equal, round and reactive pupils present EOM: EOMs intact bilaterally Resp Effort & Inspection: normal respiratory effort Auscultation: clear to auscultation bilaterally Cardio Rate: regular rate Rhythm: regular rhythm Heart sounds: S1 normal heart sound present, S2 normal heart sound present, no gallops, no murmurs and no rubs GI Palpation (GI): No Abdominal aortic bruit present, Soft to palpation, nontender, No hepatosplenomegaly present and No Rebound tenderness present Auscultation: normal bowel sounds General: Yes no CVA tenderness Back/Spine/Pelvis Back: no CVA tenderness Cervical Spine: cervical ROM normal and No Cervical spine tenderness Thoracic/Lumbar Spine: thoraco-lumbar ROM normal, No pain with thoraco-lumbar ROM, No thoracic spinal tenderness and No lumbar spinal tenderness Extrem General: Yes normal to inspection, No edema and No calf tenderness Skin General: warm and dry. Normal skin color. Normal skin turgor Neuro General: patient oriented x3, gait normal and no focal neuro deficit Cranial nerves: Yes Equal, round and reactive pupils present Cognition (Neuro): normal cognition Gait exam (Neuro): Normal gait present Sensory Exam: No Sensory deficit (Neuro) Psych Appearance: grossly normal Affect: normal affect Attitude: cooperative Thought process: Normal thought process present Coding Level of Care Code Est Pt Level 4 (59567) Complex EM visit Add On G2211 Diagnoses DMII (diabetes mellitus, type 2) E11.9 Hyperlipidemia E78.5 Vitamin D deficiency E55.9 Anxiety and depression F41.9; F32.A Sleep disturbance G47.9 Additional Codes NICOLE-7 Assessment Billing - NICOLE-7 Assessment Tool: NICOLE-7 Assessment 50640 ([id number]) PHQ-9 - 71767 - PHQ-9 Billing: Yes ([id number]) Assessment & Plan Assessment & Plan (1) DMII (diabetes mellitus, type 2): Code(s): E11.9 - Type 2 diabetes mellitus without complications Category: Medical Plan: Previous A1c was 6.9%. Continue current treatment regimen. ADA diet and routine exercise encouraged. Follow-up in 6 weeks. Verbalized understanding and agreed with the plan. (2) Hyperlipidemia: Code(s): E78.5 - Hyperlipidemia, unspecified Category: Medical Plan: Recent total cholesterol and LDL levels are elevated, 211 and 146 respectively. HDL is slightly low, 37. Triglycerides level is normal. He has history of elevated total cholesterol and LDL levels. Atorvastatin 10 mg daily at bedtime ordered; advised to take as prescribed. Instructed on the risks, benefits, potential adverse reactions of the medication. Continue to take fenofibrate 54 mg daily. Advised to limit foods high in saturated fat and avoid foods high in trans fat. Routine exercise encouraged. Fast for 10-12 hours, may drink water, perform lipid panel blood work 2-3 days before next visit. Follow-up in 6 weeks. Return sooner with symptoms or concerns. Verbalized understanding and agreed with the plan. (3) Vitamin D deficiency: Code(s): E55.9 - Vitamin D deficiency, unspecified Category: Medical Plan: Recent vitamin-D level is significantly low, 17.4. Vitamin D3 1000 units daily ordered; advised to take as prescribed. Informed that the sun is a good source of vitamin-D. Perform a vitamin-D blood work in follow-up in 6 weeks. Verbalized understanding and agreed with plan (4) Anxiety and depression: Code(s): F41.9 - Anxiety disorder, unspecified; F32.A - Depression, unspecified Category: Medical Plan: Reports controlled anxiety and depressive symptoms. PHQ-9 and NICOLE-7 scores revealed moderate depression and mild anxiety respectively. Continue to take sertraline 25 mg daily. Routine exercise encouraged. Follow-up with worsening or new symptoms. Verbalized understanding and agreed with the plan. (5) Sleep disturbance: Code(s): G47.9 - Sleep disorder, unspecified Category: Medical Plan: Reports difficulty falling and staying asleep a times. He notes that his told him he snores when he sleeps. He requests a sleep eval. Instructed on sleep hygiene. Referred [place] [facility] [place]. Follow-up as needed. Verbalized understanding and agreed with the plan. Orders: Orders Vitamin D 25-OH Total 6 Weeks E55.9 - Vitamin D deficiency, unspecified Lipid Panel 6 Weeks E78.5 - Hyperlipidemia, unspecified Referrals Sleep Medicine Referral G47.9 - Sleep disorder, unspecified Medications: New cholecalciferol (vitamin D3) 25 mcg PO DAILY 90 tabs 2RF 90 days atorvastatin (Lipitor) 10 mg PO BEDTIME 30 tabs 3RF 30 days Refilled naloxone 4 mg/actuation (Narcan) spray 1 dose into ONE nostril; alternate nostrils w each dose until help arrives 4 mg intranasal Q2M PRN 2 ea 1RF opioid overdose lancets (FreeStyle Lancets) POC testing 4 times daily 100 ea 4RF blood sugar diagnostic (FreeStyle Lite Strips) POC 4 times daily 100 ea 4RF
[2024-11-04 11:27] VITALS: BP 132/70; PULSE 92; RESP 16; TEMP 36.6; O2SAT 95; BMI 28.9
[2024-11-04 11:58] VITALS: BP 120/60
--- OUTSIDE RECORDS SUMMARY | 2024-11-04 12:47 | XMS_ITS | Encounter Summary ---
Author Organization [facility] Address [address] [place] [address] Care Team Providers Care Pump Room Operator Name Role Phone Unavailable Primary Care Provider Unavailabl e Encounter Details Date Type Department Care Team (Latest Contact Info) Description 11/24/2021 Abstract [facility] CONVERSIONS Dental, Provider, DDS Social History Tobacco Use Types Packs/Day Years Used Date Smoking Tobacco: Never Assessed Sex and Gender Information Value Date Recorded Sex Assigned at Male 01/16/2022 10:25 AM EDT Legal Sex Male 10:25 AM EDT Gender Identity Male 01/16/2022 10:25 AM EDT Sexual Orientation Choose not to disclose 2021 10:25 AM EDT documented as of this encounter Plan of Treatment Not on file documented as of this encounter Visit Diagnoses Not on filedocumented in this encounter
--- OUTSIDE RECORDS SUMMARY | 2024-11-04 12:48 | XMS_ITS | Patient Health Record ---
Author Organization [facility] Address [address] [place] [address] Care Team Providers Care Cigarette Roller Name Role Phone Vee (RETIRED) Carlos Eduardo RAY Primary Care Provide r Enrico Wells Unavailable [phone] Allergies Allergen (clinical drug ingredient) Drug/Non Drug Allergy documented on EMR Reaction Allergy Type Onset Date Status CT scan dye (uncoded) Unknown Allergy Active Reason For Referral No Information Medications Medication SIG (Take, Route, Frequency, Duration) Notes Start Date End Date Status Cymbalta 60 MG 1 capsule Orally Once a day Active Dulcolax (colon prep) 5 MG take at 3:00 p.m and 7:00p.m. Orally two tablets twice a day for one day for 1 day 08/05/2017 Active oxyCODONE-Acetaminop hen 10-325 MG (Schedule II Drug) Oral for 7 Active NexIUM 20 MG 1 capsule Orally Once a day uses just occasionally prn GERD Active Methadone HCl 1 1 tablet Orally as directed Active Crestor 20 MG 1 tablet Orally Once a day Active metFORMIN HCl 500 MG TK 1 T PO BID WC Oral for 90 Active MiraLax (colon prep) 8.3 ounce ((238) grams mixed with Gatorade or Crystal Light orally begin at 5:00 p.m. the day before the procedure for 1 day 08/05/2017 Active Rosuvastatin Calcium 10 MG TK 1 T PO QD Oral for 90 Active Immunizations Vaccine Route Administration Date Status Comme nts Hepatitis A (adult) Unknown 06/30/2014 Administered Flu vaccine no Preserv 3 and > Unknown 02/02/2015 Admin istered Influenza Unknown 11/18/2015 Administered Influenza Unknown 11/17/2016 Administered Problems Problem Type SNOMED Code ICD Code Onset Dates Problem Status W/U Status Risk Notes Problem 737047419 Encounter for screening for malignant neoplasm of colon (Z12.11) Active confirmed Problem Screening for malignant neoplasm of rectum (282850645) Encounter for screening for malignant neoplasm of rectum (Z12.12) Active confirmed Problem [id number] Preprocedural examination (Z01.818) Active confirmed Problem 197762984 Hepatitis C antibody test positive (R76.8) Active confirmed Problem 218909368 Abdominal pain, right lateral (R10.9) Active confirmed Problem 846295893 High risk medications (not anticoagulants) long-term use (Z79.899) Active confirmed Plan Of Treatment Future Test Test Name Order Date COLONOSCOPY 07/31/2017 Insurance Providers Payer Name Payer Address Payer Phone Subscriber Number Group Number Insured Name Patient Relationship to Insured Coverage Start Date Coverage End Date MEDICARE OF [place] [address] [place] [id number] ROSEMARY BEAR Self - patient is the insured MEDICAID OF [facility] [address] [place] [address] [id number] ROSEMARY BEAR Self - patient is the insured Medical (General) History Medical History History ICD Code Hyperlipidemia Depression Chronic back pain Denies [place],DM,CVA,Lung disease,renal dise ase Pneumonia Negative upper endoscopy and colonoscopy with Dr. Travis in 06/2007--hyperplastic polyps Positive HCV antibody, but nondetectable Hepatitis C viral load in 2011 Previous substance and alcohol abuse as below Occasional GERD--uses Nexium prn Surgical History Surgery Date(Month/Year) Back surgery x 2 Tendon repair on elbow 02/2015 Left hand ring finger 2016 [facility] Elbow arthroscopy and cyst in finger 201 10/21/13
== END 2024-11-04 12:04 | disposition home or self-care (01) ==
LOC: HO.HMCFM 11:16
PROVIDERS: PCP Nurse Practitioner Family; Visit Provider Nurse Practitioner Family
DX: E11.9 Type 2 diabetes mellitus without complications (principal); E78.5 Hyperlipidemia, unspecified; E55.9 Vitamin D deficiency, unspecified; F41.9 Anxiety disorder, unspecified; F32.A Depression, unspecified; G47.9 Sleep disorder, unspecified

== ENCOUNTER → 2024-11-04 11:15 | Outpatient (BNVA) | payer OTHER, SELFPAY | PROVIDERS: PCP Nurse Practitioner Family; Visit Provider Nurse Practitioner Family | DX: E11.9 Type 2 diabetes mellitus without complications (principal); E78.5 Hyperlipidemia, unspecified; E55.9 Vitamin D deficiency, unspecified; F41.9 Anxiety disorder, unspecified; F32.A Depression, unspecified | CPT/HCPCS: 96127; 99212 ==

== ENCOUNTER 2024-12-15 05:58 | Outpatient (REF) | payer OTHER, SELFPAY ==
--- OUTSIDE RECORDS SUMMARY | 2020-09-30 04:45 | XMS_ITS | Continuity of Care Document ---
Author Organization [facility] Address [address] [place] [address] Care Team Providers Care Electrical Technician Name Role Phone Gen Garcia APRN Unavailable [...] Diagnoses Date Provider Providers Copied on Encounter [facility], [address], [place], [place], [id number] , [facility] No Information 1 Jose Blevins. [address] [place] [address], [id number], . tel:[phone] Referring Provider: Gen Garcia, [address] [place] [address], [id number] . tel:[phone] OFFICE/OUTPA TIENT VISIT, [facility], [address], [place], [place], [id number] , [facility] back pain (chief complaint) Chronic pain syndromeRadicul opathy, lumbar regionPostlamin ectomy syndrome, not elsewhere classifiedLong term (current) use of opiate analgesic 1 Jose Blevins. [address] [place] [address], [id number], . tel:[phone] Referring Provider: Gen Garcia, [address] [place] [address], [id number] . tel:[phone] OFFICE/OUTPA TIENT VISIT, EST [facility], [address], [place], [place], [id number] , [facility] low back pain (chief complaint) Chronic pain syndromePostlam inectomy syndrome, not elsewhere classifiedRadic ulopathy, lumbar regionLong term (current) use of opiate analgesic 1 Jose Blevins. [address] [place] [address], [id number], . tel:[phone] Referring Provider: Gen Garcia, [address] [place] [address], [id number] . tel:[phone] OFFICE/OUTPA TIENT VISIT, [facility], [address], [place], [place], [id number] , [facility] No Information 1 Pérez Jung. [address] [place] [address], [id number], . tel:[phone] Referring Provider: Tori Aguayo, [address] [place] [address], [id number] . tel:[phone] [facility], [address], [place], [place], [id number] , [facility] back pain (chief complaint) Body mass index (BMI) 29.0-29.9, adultRadiculopa thy, lumbar regionPostlamin ectomy syndrome, not elsewhere classifiedLong term (current) use of opiate analgesic 1 Pérez Jung. [address] [place] [address], [id number], . tel:[phone] OFFICE/OUTPA TIENT VISIT, [facility], [address], [place], [place], [id number] , [facility] back pain (chief complaint) Body mass index (BMI) 29.0-29.9, adultRadiculopa thy, lumbar regionOther assistant terminal manager (current) drug therapyLumbagoP ostlaminectomy syndrome, not elsewhere classifiedDepre ssion 1 Dede Valle. [address] [place] [address], [id number], . tel:[phone] Referring Provider: Tori Aguayo, [address] [place] [address], [id number] . tel:[phone] Family History Family Member Type Diagnosis Age At Onset No Information Payers Payer name Insurance type Covered alliance party ID Authorjareta april(s) [facility] Healthcare Plans Medicaid [id number] Social History Type Description Quantity Date [...] ordered Referral Referred To: Jett Barron [address] [facility]
[address] [place], [place], [id number] Ordered: Referrals: Clinical Psychology. Jett Barron. Evaluate [...] walking.The patient denies relieving factors. Additional information: scanR brito lulu for imaging. Functional Status Date [...] be obtained in this office. 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 Related to Depression Patient had L-MRI w/ and w/out contrast from [facility] this month and will call to retrieve report. -Will also retrieve records from previous pain management physician in [place], Dr. Carlos Eduardo Baxter and PCP in [place] ,Dr. Isela Ramirez. -Also obtain records from PCP in [facility]- Dr. Sal Mendiola.Patient will call PCP [...] reviously discussed SCS with pain management in [place], but then moved to [place]. 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
--- OUTSIDE RECORDS SUMMARY | 2024-10-07 05:00 | XMS_ITS ---
Author Organization [facility] Address [address] [facility] [place] [address] Care Team Providers Care Salesperson Florist Supplies Name Role Phone Vania NEW, Harshad Primary Care Provider Unavail able Vika Mendez Unavailable [phone] Medications Medication SIG (Take, Route, Frequency, Duration) [...] Active Encounters Encounter Location Date Provider Diagnosis [facility] [address] [address] 10/07/2024 Vika Mendez Plan Of Treatment Next Appt Details Provider Name:Vika Nadya covington, 01/07/2025 09:15:00 AM, [address] [place] [address], [phone], Progress Notes * Sridhar LACYDOB: [birth year] (64 yo M)Acc No.[id number]:10/07/2024 Progress Note Patient: Sridhar ALEX Provider: Maxwell Mendez DPM :1960 A ge:64 Y S ex:Male Date:10/07/2024 Address:[address] [place], [place] [id number] Pcp:Harshad Caro NP Subjective: * Chief Complaints: [...] 10/07/2024 Generated for Holly voss/Jennifer/Leonela on: 0 12/15/2024 06:02 AM EDT
--- OUTSIDE RECORDS SUMMARY | 2024-12-15 06:02 | XMS_ITS | Patient Health Record ---
Author Organization [facility] Address [address] [place] [address] Care Team Providers Care Occupational Health Coordinator Name Role Phone Vania NEW, Harshad Primary Care Provider Unavail able Vika Mendez Unavailable [phone] Allergies No Known Allergies Reason For Referral No Information Medications Medication SIG (Take, Route, Frequency, Duration) Notes Start Date End Date Status PARoxetine HCl 20 MG 1 tablet in the morning Orally Once a day; Duration: 30 day(s) paxil Active Naloxone HCl 4 MG/10ML as directed Injection narcan Not-Taking Omeprazole 40 MG 1 capsule 30 minutes before morning meal Orally Once a day; Duration: 30 day(s) Active Lancets Not-Taking Methadone HCl 5 MG 1 tablet Orally Once a day Active Linagliptin tradjenta Active Diclofenac Sodium 1 % as directed Externally voltaren Not-Taking Lidocaine lidoderm Active Diclofenac Potassium 50 MG 1 tablet with food or milk as needed Orally Twice a day Not-Taking Gabapentin 300 MG 1 capsule Orally Onc e a day; Duration: 30 day(s) Active Coenzyme Q10 30 MG as directed Orally Not-Taking Ferrous Sulfate 325 (65 Fe) MG 1 tablet Orally Once a day; Duration: 30 day(s) Active Fenofibrate 54 MG 1 tablet with food Orally Once a day; Duration: 30 day(s) Active Acetaminophen Active Tradjenta 5 MG 1 tablet Orally Once a day Active Ciclopirox Olamine 0.77 % 1 application to affected area Externally to feet Twice a day; Duration: 30 days Active Sildenafil Citrate 50 MG 1 tablet as needed Orally Once a day; Duration: 30 day(s) viagra Active Sertraline HCl 25 MG Oral; Duration: 30 Days Active Lactobacillus Not-Ta mikal Immunizations Vaccine Route Administration Date Status Comme [...] Problem Status W/U Status Risk Notes Problem Polyneuropathy due to type 2 diabetes mellitus (464638029) Type 2 diabetes mellitus with polyneuropathy (E11.42) Active confirmed Encounters Encounter Location Date Provider Diagnosis [facility] [address] [address] 10/07/2024 Vika Mendez Plan Of Treatment Next Appt Details Provider Name:Vika covington, 01/07/2025 09:15:00 AM, [address] [place] [address], [phone], Insurance Providers Payer Name Payer Address Payer Phone Subscriber Number Group Number Insured Name Patient Relationship to Insured Coverage Start Date Coverage End Date [facility] [employer] Claims [address] [place] [address] [id number] Sridhar Lacy Self - patient is the insured Medical (General) History Medical History History ICD Code Arthritis Depression Diabetes Surgical History Surgery Date(Month/Year)
--- OUTSIDE RECORDS SUMMARY | 2024-12-15 06:02 | XMS_ITS | Patient Health Record ---
Author Organization [facility] Address [address] [place] [address] Care Team Providers Care Diamond Driller Name Role Phone Vee (RETIRED) Carlos Eduardo RAY Primary Care Provide r Enrico Wells Unavailable [phone] Allergies Allergen (clinical drug ingredient) Drug/Non Drug [...] Problem Status W/U Status Risk Notes Problem 427612861 Encounter for screening for malignant neoplasm of colon (Z12.11) Active confirmed Problem Screening for malignant neoplasm of rectum (205861328) Encounter for screening for malignant neoplasm of rectum (Z12.12) Active confirmed Problem [id number] Preprocedural examination (Z01.818) Active confirmed Problem 074793812 Hepatitis C antibody test positive (R76.8) Active confirmed Problem 258932188 Abdominal pain, right lateral (R10.9) Active confirmed Problem 371222564 High risk medications (not anticoagulants) long-term use (Z79.899) Active confirmed Plan Of Treatment Future Test Test Name Order Date COLONOSCOPY 07/31/2017 Insurance Providers Payer Name Payer Address Payer Phone Subscriber Number Group Number Insured Name Patient Relationship to Insured Coverage Start Date Coverage End Date MEDICARE OF [place] [address] [place] [id number] ROSEMARY BEAR Self - patient is the insured MEDICAID OF [facility] [address] [place] [address] [phone] [id number] ROSEMARY BEAR Self - patient is the insured Medical (General) History Medical History History ICD Code Hyperlipidemia Depression Chronic back pain Denies [place],DM,CVA,Lung disease,renal dise ase Pneumonia Negative upper endoscopy [...]
--- OUTSIDE RECORDS SUMMARY | 2024-12-15 06:02 | XMS_ITS | Encounter Summary ---
Author Organization [employer] Address [address] [place] [address] Care Team Providers Care Efficiency Miner Name Role Phone Unavailable Primary Care Provider Unavailabl e Reason for Visit * Reason Onset Date Comments rs cancelled appt 03/10/2024 Encounter Details Date Type Department Care Team (Late st Contact Info) Description 03/10/2024 Telephone [facility] [address] [place], [place] [phone] Henri Barroso [address] [place], [place] [phone] rs cancelled appt Social History Tobacco Use [...] encounter Miscellaneous Notes * Telephone Encounter - Rroo Silva - 03/10/2024 11:57 AM EST Patient [...] documented in this encounter Plan of Treatment Not on file documented as of this encounter Visit Diagnoses Not on filedocumented in this encounter
--- OUTSIDE RECORDS SUMMARY | 2024-12-15 06:02 | XMS_ITS | Clinical Summary ---
Author Organization [employer] Address [address] [facility] [address] [place] [address] Care Team Providers Care Car Sealer Name Role Phone Unavailable Primary Care Provider [...] Take 40 mg by mouth at bedtime. Active ibuprofen 600 MG tablet Take 1 tablet (600 mg) by mouth every 6 (six) hours if needed for mild pain for up to 20 doses. 20 tablet Active chlorhexidine (Peridex) 0.12 % solution Swish 15 mL morning and night for 1 minute. Spit, do not swallow. Do not eat or drink for 30 minutes following use. 473 mL 4 Active Additional Information Patient not taking.Reported on 10/24/2024 Active Problems Problem Noted Date Diagnosed Date Type 2 diabetes mellitus with polyneuropathy 11/2024 Encounters Date Type Department Care Team Description 10/24/2024 8:00 AM EDT Office Visit [facility] [address] [place] [address] Jimmy Lau DMD Denture irritation (Primary Dx) 10/15/2024 8:00 AM EDT Office Visit [facility] [address] [place] [address] Jimmy Lau DMD Partial edentulism, unspecified edentulism class (Primary Dx) 10/02/2024 8:00 AM EDT Office Visit [facility] [address] [place] [address] Jimmy Lau DMD Partial edentulism, unspecified edentulism class (Primary Dx) 09/18/2024 8:00 AM EDT Office Visit [facility] [address] [place] [address] Jimmy Lau DMD Partial edentulism, unspecified edentulism class (Primary Dx) from Last 3 Months Social [...] Sign Reading Time Taken Comments Blood Pressure 130/80 09/08/2024 8:05 AM EDT Pulse 70 09/08/2024 8:05 AM EDT Temperature - - Respiratory Rate - - Oxygen Saturation - - Inhaled Oxygen Concentration - - Weight - - Height - - Body Mass Index - - Plan of Treatment Health Maintenance Due Date Last Done Comments CT Colonography 1962 Colonoscopy 1962 Colorectal Cancer Screening 1962 Dental X-Ray: Full Mouth 1962 Depression Screening 1962 Diabetes: Hemoglobin A1C 1962 FIT DNA/Cologuard 1962 FIT 1962 FOBT 1962 HIV Screening 1962 Lipid Panel 1962 SDOH Screening 1962 Sigmoidoscopy 1962 Disability Screening 1962 Diabetes: Foot Exam 1972 Eye Exam 1972 Alcohol/Substance Use Screening 1974 Hepatitis C Screening 1980 Diabetes: Urine Protein Screening 1981 Hepatitis B Vaccines (2 of 3 - 19+ 3-dose series) 11/11/2019 10/14/2019 Zoster Vaccines (2 of 2) 07/27/2021 06/01/2021 Dental Oral Exam 08/20/2024 02/19/2024 Dental Prophylaxis 08/20/2024 02/19/2024 COVID-19 Vaccine ( season) 2024 Influenza Vaccine (#1) 2024 3, 01/17/2023, 03/18/2020, Additional history exists Dental X-Ray: Bitewings 02/19/2025 02/19/2024 Tobacco Screening 10/24/2025 10/24/2024 DTaP/Tdap/Td Vaccines (2 - Td or Tdap) 05/28/2029 05/29/2019, 07/04/2012 RSV Patients and Patients Aged 60 years or older (1 - 1-dose 75+ series) 2037 Hepatitis A Vaccines Aged Out 10/14/2019, 07/01/19 15 No longer eligible based on patient's age [...] patient's age to complete this topic Meningococcal B Vaccine Aged Out No l onger eligible based on patient's age to complete [...] PRESENTATION, DETAILED AND EXTENSIVE TREATMENT PLANNING Routine 10/24/2024 8:00 AM EDT Denture irritation DENTURE FOLLOWUP Routine 10/24/2024 8:00 AM EDT Denture irritation CASE PRESENTATION, DETAILED AND EXTENSIVE TREATMENT PLANNING Routine 10/15/2024 8:00 AM EDT Partial edentulism, unspecified edentulism class 2,4,6,11,13,14,15 MAXILLARY PARTIAL DENTURE - CAST METAL FRAMEWORK WITH RESIN DENTURE BASES (INCLUDING RETENTIVE/CLASPING MATERIALS, RESTS AND TEETH) Routine 10/15/2024 8:00 AM EDT Partial edentulism, unspecified edentulism class 29,30,18,19,20 MANDIBULAR PARTIAL DENTURE - CAST METAL FRAMEWORK WITH RESIN DENTURE BASES (INCLUDING RETENTIVE/CLASPING MATERIALS, RESTS AND TEETH) Routine 10/15/2024 8:00 AM EDT Partial edentulism, unspecified edentulism class CASE PRESENTATION, DETAILED AND EXTENSIVE TREATMENT PLANNING Routine 10/02/2024 8:00 AM EDT Partial edentulism, unspecified edentulism class WAX TRY IN Routine 10/02/2024 8:00 AM EDT Partial edentulism, unspecified edentulism class CASE PRESENTATION, DETAILED AND EXTENSIVE TREATMENT PLANNING Routine 09/18/2024 8:00 AM EDT Partial edentulism, unspecified edentulism class BITE REGISTRATION Routine 09/18/2024 8:0 0 AM EDT Partial edentulism, unspecified edentulism class Full PROPHYLAXIS - ADULT Routine 024 9:00 AM EST Partial edentulism, unspecified edentulism class BITEWINGS - 4 RADIOGRAPHIC IMAGES Routine 02/19/2024 9:00 AM EST Partial edentulism, unspecified edentulism class COMPREHENSIVE ORAL EVALUATION - NEW OR ESTABLISHED PATIENT Routine 02/19/2024 9:00 AM EST Partial edentulism, unspecified edentulism class from Last 3 Months or Most Recently Relevant to Health Maintenance Insurance D[facility]AL [facility]
--- OUTSIDE RECORDS SUMMARY | 2024-12-15 06:02 | XMS_ITS | Encounter Summary ---
Author Organization [employer] [facility] Address [address] [facility] [address] [place] [address] Care Team Providers Care Veterinary Meat Inspector Name Role Phone Unavailable Primary Care Provider [...]
[2024-12-15 07:14] LABS: Hematocrit 45.7 % (42.0-52.0); Hemoglobin 14.9 g/dl (14.0-18.0); Mean Corpuscular HGB Conc 32.6 g/dl (31.0-36.0); Mean Corpuscular Hemoglobin 28.8 pg (27.0-33.0); Mean Corpuscular Volume 88.2 fL (80.0-98.0); NRBC Abs Auto 0.000 X10*3/uL (0.0-0.012); NRBC Pct Auto 0.0 /100WBC (0.0-0.2); Platelet Count 198 X10*3/uL (160-400); Red Blood Count 5.18 X10*6/uL (4.60-5.80); White Blood Count 4.6 X10*3/uL (4.8-10.8)
[2024-12-15 07:50] LABS: Cholesterol 236 mg/dL (<200); HDL Cholesterol 43 mg/dL (>40); Triglycerides 147 mg/dL (<150)
[2024-12-15 08:01] LABS: Prostate Specific Antigen 1.07 ng/mL (<0.05-4.0)
[2024-12-20 18:53] LABS: Testosterone, Free 6.3 pg/mL (35.0-155.0)
== END 2024-12-15 05:59 | disposition home or self-care (01) ==
LOC: HO.LAB 05:58
PROVIDERS: Absent Provider Urology; PCP Nurse Practitioner Family; Visit Provider Nurse Practitioner Family
DX: E29.1 Testicular hypofunction (principal); R79.89 Other specified abnormal findings of blood chemistry; E55.9 Vitamin D deficiency, unspecified; Z12.5 Encounter for screening for malignant neoplasm of prostate
CPT/HCPCS: 36415; 80061; 82306; 84153; 84402; 84403; 85027

== ENCOUNTER 2024-12-19 07:55 | Outpatient (AMB) | payer OTHER, SELFPAY ==
--- OUTSIDE RECORDS SUMMARY | 2020-09-30 04:45 | XMS_ITS | Continuity of Care Document ---
Author Organization [facility] Address [address] [place] [address] Care Team Providers Care Insert Operator Name Role Phone Gen Garcia APRN Unavailable [...] for 7 days, then increase to BID Vitamin D2 1,250 mcg (50,000 unit) capsule - Active Tradjenta 5 mg tablet take 1 tablet by oral route every day 5 MG - Active rosuvastatin 20 mg tablet take 1 tablet by oral route every day 20 MG - Active methadone 5 mg tablet take 1 tablet by oral route every 12 hours 5 MG - Active Procedures Procedure Date Encounter Created [...] Diagnoses Date Provider Providers Copied on Encounter [facility], [address], [place], [place], [id number] , [facility] No Information 1 Jose Blevins. [address] [place] [address], [id number], . tel:[phone] Referring Provider: Gen Garcia, [address] [place] [address], [id number] . tel:[phone] OFFICE/OUTPA TIENT VISIT, [facility], [address], [place], [place], [id number] , [facility] back pain (chief complaint) Chronic pain syndromeRadicul opathy, lumbar regionPostlamin ectomy syndrome, not elsewhere classifiedLong term (current) use of opiate analgesic 1 Jose Blevins. [address] [place] [address], [id number], . tel:[phone] Referring Provider: Gen Garcia, [address] [place] [address], [id number] . tel:[phone] OFFICE/OUTPA TIENT VISIT, EST [facility], [address], [place], [place], [id number] , [facility] low back pain (chief complaint) Chronic pain syndromePostlam inectomy syndrome, not elsewhere classifiedRadic ulopathy, lumbar regionLong term (current) use of opiate analgesic 1 Jose Blevins. [address] [place] [address], [id number], . tel:[phone] Referring Provider: Gen Garcia, [address] [place] [address], [id number] . tel:[phone] OFFICE/OUTPA TIENT VISIT, [facility], [address], [place], [place], [id number] , [facility] No Information 1 Pérez Jung. [address] [place] [address], [id number], . tel:[phone] Referring Provider: Tori Aguayo, [address] [place] [address], [id number] . tel:[phone] [facility], [address], [place], [place], [id number] , [facility] back pain (chief complaint) Body mass index (BMI) 29.0-29.9, adultRadiculopa thy, lumbar regionPostlamin ectomy syndrome, not elsewhere classifiedLong term (current) use of opiate analgesic 1 Pérez Jung. [address] [place] [address], [id number], . tel:[phone] OFFICE/OUTPA TIENT VISIT, [facility], [address], [place], [place], [id number] , [facility] back pain (chief complaint) Body mass index (BMI) 29.0-29.9, adultRadiculopa thy, lumbar regionOther snf (current) drug therapyLumbagoP ostlaminectomy syndrome, not elsewhere classifiedDepre ssion 1 Dede Valle. [address] [place] [address], [id number], . tel:[phone] Referring Provider: Tori Aguayo, [address] [place] [address], [id number] . tel:[phone] Family History Family Member Type Diagnosis Age At Onset No Information Payers Payer name Insurance type Covered libertarian ID Authorjareta april(s) [facility] Healthcare Plans Medicaid CI [id number] Social History Type Description Quantity Date [...] ordered Referral Referred To: Jett Barron [address] [facility]
[address] [place], [place], [phone] Ordered: Referrals: Clinical Psychology. Jett Barron. Evaluate [...] walking.The patient denies relieving factors. Additional information: [place] brito lulu for imaging. Functional Status Date [...] be obtained in this office. 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 Related to Depression Patient had L-MRI w/ and w/out contrast from [facility] this month and will call to retrieve report. -Will also retrieve records from previous pain management physician in [place], Dr. Carlos Eduardo Baxter and PCP in [place] ,Dr. Isela Ramirez. -Also obtain records from PCP in [facility]- Dr. Sal Mendiola.Patient will call PCP for renewal of methadone prescription as he is aware we cannot prescribe any narcotics until UDS sample results.Will prescribe Cymbalta 30mg BID and patient advised to start with 1 capsule in the evening for 7 days, then increase to BID. Related to Radiculopathy, lumbar region States that he had p reviously discussed SCS with pain management in [place], but then moved to [place]. States that he has hardware to lumbar [...] abuse.CAGE questionnaire score: 0 Related to Other snf (current) drug therapy Dietary management e ducation, guidance, and counseling Related to Body mass index [BMI] 29.0-29.9, adult Assessments Type Assessment Date No Information Patient Care Teams Name Effective Dates (start - stop) Status Members No Information
--- OUTSIDE RECORDS SUMMARY | 2024-10-07 05:00 | XMS_ITS ---
Author Organization [facility] Address [address] [facility] [place] [address] Care Team Providers Care Marble Rubber Name Role Phone Vania NEW, Harshad Primary Care Provider Unavail able Vika Mendez Unavailable [phone] Medications Medication SIG (Take, Route, Frequency, Duration) [...] Active Encounters Encounter Location Date Provider Diagnosis [facility] [address] [address] 10/07/2024 Vika Mendez Plan Of Treatment Next Appt Details Provider Name:Vika Nadya covington, 01/07/2025 09:15:00 AM, [address] [place] [address], [phone], Progress Notes * Sridhar LACYDOB: [birth year] (64 yo M)Acc No.[id number]:10/07/2024 Progress Note Patient: Sridhar ALEX Provider: Maxwell Mendez DPM :1960 A ge:64 Y S ex:Male Date:10/07/2024 Address:[address] [place], [place] [id number] Pcp:Harshad Caro NP Subjective: * Chief Complaints: [...] 10/07/2024 Generated for Holly voss/Jennifer/Leonela on: 1 07:59 AM EDT
--- OUTSIDE RECORDS SUMMARY | 2024-12-19 07:59 | XMS_ITS | Patient Health Record ---
Author Organization [facility] Address [address] [place] [address] Care Team Providers Care Circle Cutting Saw Operator Name Role Phone Vee (RETIRED) Carlos Eduardo RAY Primary Care Provide r En[place] Wells Unavailable [phone] Allergies Allergen (clinical drug ingredient) Drug/Non Drug [...] Problem Status W/U Status Risk Notes Problem [id number] Encounter for screening for malignant neoplasm of colon (Z12.11) Active confirmed Problem Screening for malignant neoplasm of rectum (352675556) Encounter for screening for malignant neoplasm of rectum (Z12.12) Active confirmed Problem [id number] Preprocedural examination (Z01.818) Active confirmed Problem 569102370 Hepatitis C antibody test positive (R76.8) Active confirmed Problem 957743112 Abdominal pain, right lateral (R10.9) Active confirmed Problem 555047446 High risk medications (not anticoagulants) long-term use (Z79.899) Active confirmed Plan Of Treatment Future Test Test Name Order Date COLONOSCOPY 07/31/2017 Insurance Providers Payer Name Payer Address Payer Phone Subscriber Number Group Number Insured Name Patient Relationship to Insured Coverage Start Date Coverage End Date MEDICARE OF [place] [address] [place] ALEXANDER [id number] ROSEMARY BEAR Self - patient is the insured MED[employer] [facility] [address] [place] [address] [id number] ROSEMARY BEAR Self - patient is the insured Medical (General) History Medical History History ICD Code Hyperlipidemia Depression Chronic back pain Denies AK,DM,CVA,Lung disease,renal dise ase Pneumonia Negative upper endoscopy [...]
--- OUTSIDE RECORDS SUMMARY | 2024-12-19 07:59 | XMS_ITS | Encounter Summary ---
Author Organization [employer] [facility] Address [address] [facility] 7[address] [place] [address] Care Team Providers Care Labor Conciliator Name Role Phone Unavailable Primary Care Provider [...]
--- OUTSIDE RECORDS SUMMARY | 2024-12-19 07:59 | XMS_ITS | Encounter Summary ---
Author Organization [employer] Address [address] [facility] [address] [place] [address] Care Team Providers Care Bite Block Maker Name Role Phone Unavailable Primary Care Provider Unavailabl e Reason for Visit * Reason Onset Date Comments rs cancelled appt 03/10/2024 Encounter Details Date Type Department Care Team (Late st Contact Info) Description 03/10/2024 Telephone [facility] [address] [place], [place] [phone] Henri Barroso [address] [place], [place] [phone] rs cancelled appt Social History Tobacco Use [...]
--- OUTSIDE RECORDS SUMMARY | 2024-12-19 08:00 | XMS_ITS | Patient Health Record ---
Author Organization [facility] Address [address] [place] [address] Care Team Providers Care Musical Instrument Maker Name Role Phone Vania NEW, Harshad Primary Care Provider Unavail able Vika Mendez Unavailable [phone] Allergies No Known Allergies Reason For Referral [...] Polyneuropathy due to type 2 diabetes mellitus (990426671) Type 2 diabetes mellitus with polyneuropathy (E11.42) Active confirmed Encounters Encounter Location Date Provider Diagnosis [facility] [address] [address] 10/07/2024 Vika Mendez Plan Of Treatment Next Appt Details Provider Name:Vika covington, 01/07/2025 09:15:00 AM, [address] [place] [address], [id number], Insurance Providers Payer Name Payer Address Payer Phone Subscriber Number Group Number Insured Name Patient Relationship to Insured Coverage Start Date Coverage End Date [facility] [place] [employer] Claims [address] [place] [id number] Sridhar Lacy Self - patient is the insured Medical (General) History Medical History History ICD Code Arthritis Depression Diabetes Surgical History Surgery Date(Month/Year)
--- OUTSIDE RECORDS SUMMARY | 2024-12-19 08:00 | XMS_ITS | Clinical Summary ---
Author Organization [employer] Address [address] [facility] [address] [place] [address] Care Team Providers Care Animal Anatomist Name Role Phone Unavailable Primary Care Provider [...] Description 10/24/2024 8:00 AM EDT Office Visit [facility] [address] [place] [address] Jimmy Lau DMD Denture irritation (Primary Dx) 10/15/2024 8:00 AM EDT Office Visit [facility] [address] [place] [address] Jimmy Lau DMD Partial edentulism, unspecified edentulism class (Primary Dx) 10/02/2024 8:00 AM EDT Office Visit [facility] [address] [place] [address] Jimmy Lau DMD Partial edentulism, unspecified edentulism class (Primary Dx) 09/18/2024 8:00 AM EDT Office Visit [facility] [address] [place] [address] Jimmy Lau DMD Partial edentulism, unspecified edentulism [...] Recently Relevant to Health Maintenance Insurance D[facility]
--- NOTE | 2024-12-19 08:01 | A.OFFPC_ITS ---
Vital Signs 12/19/24 08:09 Height 6 ft 2 in Weight 217 lb 2 oz BMI 27.9 BP 123/70 Blood Pressure Location Lt brachial Position Sitting Respiration 16 Pulse 85 Pulse Source Pulse Oximeter Temp 97.6 F Temp Source Oral Pulse Oximetry (%) 99 Oxygen Delivery Method Room Air Intake Visit Reasons: 6 wks DM, high chol, vit d def Intake Note: patient here for 6wks follow up on DM, high chol, vitD def Automotive Accessory Installer Required: No Allergies fentanyl Allergy (Intermediate, Verified 12/19/24 08:15) itching morphine (Amber) Allergy (Intermediate, Verified 12/19/24 08:15) itch Iodinated Contrast Media (IV Dye, Iodine Containing) Allergy (Mild, Verified 12/19/24 08:15) DIFFICULTY BREATHING,VOMITING amoxicillin (From Augmentin) Adverse Reaction (Intermediate, Verified 12/19/24 08:15) Diarrhea clavulanic acid (From Augmentin) Adverse Reaction (Intermediate, Verified 12/19/24 08:15) Diarrhea metformin Adverse Reaction (Intermediate, Verified 12/19/24 08:15) stomach pain Tobacco use date assessed: 12/19/24 Dental Screening Dental Screen Date: 12/19/24 Did you have a dental visit in the last 12 months?: Yes Did you have a dental problem in the last 6 months where you did not have access to dental care?: No Was dental information given to patient?: Patient has dentist HPI HPI Comments History of Present Illness Details 64-year-old male presents for diabetes, hyperlipidemia, and vitamin-D deficiency follow-up. He admits to taking his medications as prescribed without adverse reactions. He notes he has been making healthy lifestyle changes. He lost 8 lb since his last visit. He reports chronic pain/cramps to his LLE. He was on gabapentin and meloxicam a while back with good effect. He was followed by [facility] pain management, was suspended from the program, but has not follow-up. He denies acute symptoms at this time. [facility] Medical History (Updated 12/19/24 @ 08:29 by Eldon Caro CNP) Colon cancer screening Laboratory tests ordered as part of a complete physical exam (CPE) Screening PSA (prostate specific antigen) Pre-op examination Left otitis media Weight loss, abnormal Nausea Irritable bowel syndrome with diarrhea Normal routine history and physical examination Low back pain BPH (benign prostatic hyperplasia) Poison derek dermatitis Hx of iron deficiency anemia Lumbar spondylosis Iron deficiency anemia Normal physical exam Anemia Sepsis Acute respiratory failure with hypoxia Pneumonia History of COVID-19 History of 2019 novel coronavirus disease (COVID-19) High cholesterol Arthritis Diabetes Contact dermatitis Narcotic drug use DMII (diabetes mellitus, type 2) Elevated liver transaminase level Lumbar radiculopathy, chronic Lumbar spinal stenosis Cervical radiculopathy Lumbar post-laminectomy syndrome Surgical History History of esophagogastroduodenoscopy (EGD) H/O colonoscopy History of elbow surgery History of lumbar fusion History of cholecystectomy Family History Father Liver problem Alcoholism Substance use disorder Mother No problems noted. Brother CAD (coronary artery disease) Social History Household Members: Family Housing: House Do you presently have visiting nurse or other home services: No Alcohol intake: never Patient Tobacco Use Status: Former Tobacco user Cigarette Packs Per Day: 0.5 Cigarettes Per Day: 10 Years Smoked: 10 e-Cigarette/Vaping Use: Never Used Second Hand Smoke Exposure: No service: No Current occupational status: disabled Current occupational exposures/hazards: No Cognitive needs: No (cane) Hearing needs: No Vision needs: Yes (reading glasses) Questionnaire Thrive Questionnaire Date Thrive assessed: 04/29/24 NICOLE-7 AMB Questionnaire NICOLE-7 Date NICOLE - 7 assessed: 11/04/24 Source: Developed by Drs. Enrico Chiang, Kassandra Neville, Farhat Pandey and colleagues, with an educational mann from [employer]. Review of Systems Const Details: Const Denies chills, Denies fatigue, Denies fever(s), Denies headache(s) and Denies weakness ENT Denies dizziness and Denies headache(s) Card Denies chest pain, Denies lightheadedness, Denies dyspnea and Denies other (Palpitations) Resp Denies cough, Denies dyspnea, Denies wheezing and Denies other ( shortness of breath) GI Denies abdominal pain, Denies melena, Denies hematochezia, Denies change in bowel habits, Denies dyspepsia and Denies nausea Denies hematuria and Denies dysuria Musc Reports as per HPI Skin/Breast Denies rash, Denies unusual bruising and Denies wounds Neuro Denies abnormal gait, Denies dizziness, Denies headache(s), Denies memory loss, Denies numbness, Denies Sensory deficit (Neuro), Denies tingling and Denies weakness Psych Denies anxiety, Denies depression, Denies memory loss Endo Denies cold intolerance, Denies fatigue, Denies heat intolerance, Denies polydipsia and Denies polyuria Aller/Immun Denies wheezing Physical exam (Primary Care) Vital Signs: Last Vital Signs Temp 97.6 F 12/19/24 08:09 Pulse 85 12/19/24 08:09 Resp 16 12/19/24 08:09 BP 123/70 12/19/24 08:09 Pulse Ox 99 12/19/24 08:09 Oxygen Delivery Method Room Air 12/19/24 08:09 BMI result Body Mass Index 27.9 Tobacco/Smoking Status: Tobacco use Status Tobacco use date assessed 12/19/24 12/19/24 08:11 Patient Tobacco Use Status Former Tobacco user 12/19/24 08:02 e-Cigarette/Vaping Use Never Used 12/19/24 08:02 Thrive Assessment: Date of Thrive Assessment Date Thrive assessed 04/29/24 12/19/24 08:02 Const Other: General: no acute distress and well developed Nutritional Appearance: well nourished Orientation/consciousness: patient oriented x3 HENMT Head: Yes normocephalic and Yes atraumatic Eyes General: appearance normal, both eyes and all related structures Pupils: Equal, round and reactive pupils present EOM: EOMs intact bilaterally Resp Effort & Inspection: normal respiratory effort Auscultation: clear to auscultation bilaterally Cardio Rate: regular rate Rhythm: regular rhythm Heart sounds: S1 normal heart sound present, S2 normal heart sound present, no gallops, no murmurs and no rubs GI Palpation (GI): No Abdominal aortic bruit present, Soft to palpation, nontender, No hepatosplenomegaly present and No Rebound tenderness present Auscultation: normal bowel sounds General: Yes no CVA tenderness Back/Spine/Pelvis Back: no CVA tenderness Cervical Spine: cervical ROM normal and No Cervical spine tenderness Thoracic/Lumbar Spine: thoraco-lumbar ROM normal, No pain with thoraco-lumbar ROM, No thoracic spinal tenderness and No lumbar spinal tenderness Extrem General: Yes normal to inspection, No edema and No calf tenderness Skin General: warm and dry. Normal skin color. Normal skin turgor Neuro General: patient oriented x3, gait normal and no focal neuro deficit Cranial nerves: Yes Equal, round and reactive pupils present Cognition (Neuro): normal cognition Gait exam (Neuro): Normal gait present Sensory Exam: No Sensory deficit (Neuro) Psych Appearance: grossly normal Affect: normal affect Attitude: cooperative Thought process: Normal thought process present Results AMB Hemoglobin A1c AMB Hemoglobin A1c 6.9 % Last Edit by Melvi Lynne MA on 12/19/24 08:31 Coding Level of Care Code Est Pt Level 4 (07687) Diagnoses DMII (diabetes mellitus, type 2) E11.9 Hyperlipidemia E78.5 Vitamin D deficiency E55.9 Chronic pain of left lower extremity M79.605; G89.29 Assessment & Plan Assessment & Plan (1) DMII (diabetes mellitus, type 2): Code(s): E11.9 - Type 2 diabetes mellitus without complications Category: Medical Plan: A1c today 6.9%, within goal of less than 7.0%. Previous A1c was 6.9%. He notes that he was previously on metformin but developed significant GI adverse reactions that led to hospitalization Trulicity 0.75 mg weekly ordered; advised to take as prescribed same day each week. Instructed on the risks, benefits, potential adverse reactions of the medication. ADA diet and routine exercise encouraged. Will recheck A1c in 3 months. Verbalized understanding and agreed with the plan. (2) Hyperlipidemia: Code(s): E78.5 - Hyperlipidemia, unspecified Category: Medical Plan: Recent total cholesterol and LDL levels are elevated, 236 and 164 respectively; previous levels were 211 and 146 respectively. Triglycerides and HDL levels are normal. Atorvastatin increased to 20 mg daily at bedtime; advised to take as prescribed. Advised to fast for 10-12 hours, may drink water, and perform lipid panel blood work 2-3 days before next visit. Follow-up in 2 months or sooner with symptoms or concerns. Verbalized understanding and agreed with the plan. (3) Vitamin D deficiency: Code(s): E55.9 - Vitamin D deficiency, unspecified Category: Medical Plan: Recent vitamin-D level is low, 21.9; previous level was 17.4. Will increase vitamin D3 to 50 mcg daily; advised to take as prescribed. Will recheck vitamin-D level in 2 months. Verbalized understanding and agreed with the plan. (4) Chronic pain of left lower extremity: Code(s): M79.605 - Pain in left leg; G89.29 - Other chronic pain Category: Medical Plan: Reports chronic pain/cramps to his LLE. He was on gabapentin and meloxicam a while back with good effect. He was followed by [facility] pain management, was suspended from the program, but has not follow-up. Meloxicam 15 mg daily as needed ordered; advised to take as prescribed and with food. Gabapentin 300 mg twice daily ordered; advised to take as prescribed. Instructed on the risks, benefits, and potential adverse reactions of his medications. Encouraged to follow-up with [facility] pain management. Verbalized understanding and agreed with the plan. Orders: Orders AMB Hemoglobin A1c Today Z13.9 - Encounter for screening, unspecified Lipid Panel 2 Months E78.5 - Hyperlipidemia, unspecified Vitamin D 25-OH Total 2 Months E55.9 - Vitamin D deficiency, unspecified Medications: New atorvastatin (Lipitor) 20 mg PO BEDTIME 30 tabs 3RF 30 days cholecalciferol (vitamin D3) 50 mcg PO DAILY 90 tabs 1RF 90 days dulaglutide (Trulicity) 0.75 mg (0.5 mL) subcut QWEEK 2 mL 0RF 4 weeks Refilled meloxicam 15 mg PO DAILY PRN 30 tabs 0RF pain 30 days M47.816 - Spondylosis without myelopathy or radiculopathy, lumbar region, M48.061 - Spinal stenosis, lumbar region without neurogenic claudication, M54.16 - Radiculopathy, lumbar re gion gabapentin 300 mg PO BID 180 caps 6RF pain 90 days M48.061 - Spinal stenosis, lumbar region without neurogenic claudication, M54.16 - Radiculopathy, lumbar region, M96.1 - Postlaminectomy syndrome, not elsewhere classified Discontinued cholecalciferol (vitamin D3) Discontinued Reason: Doctor's Order 25 mcg PO DAILY 90 days 90 tabs 2RF atorvastatin (Lipitor) Discontinued Reason: Doctor's Order 10 mg PO BEDTIME 30 days 30 tabs 3RF
[2024-12-19 08:09] VITALS: BP 123/70; PULSE 85; RESP 16; TEMP 36.4; O2SAT 99; BMI 27.9
== END 2024-12-19 09:54 | disposition home or self-care (01) ==
LOC: HO.HMCFM 07:55
PROVIDERS: PCP Nurse Practitioner Family; Visit Provider Nurse Practitioner Family
DX: E11.9 Type 2 diabetes mellitus without complications (principal); E78.5 Hyperlipidemia, unspecified; E55.9 Vitamin D deficiency, unspecified; M79.605 Pain in left leg; G89.29 Other chronic pain; Z13.9 Encounter for screening, unspecified

== ENCOUNTER → 2024-12-19 07:55 | Outpatient (BNVA) | payer OTHER, SELFPAY | PROVIDERS: PCP Nurse Practitioner Family; Visit Provider Nurse Practitioner Family | DX: E11.9 Type 2 diabetes mellitus without complications (principal); E78.5 Hyperlipidemia, unspecified; E55.9 Vitamin D deficiency, unspecified; R25.2 Cramp and spasm; M79.605 Pain in left leg; G89.29 Other chronic pain; M48.061 Spinal stenosis, lumbar region without neurogenic claudication; M54.16 Radiculopathy, lumbar region; M96.1 Postlaminectomy syndrome, not elsewhere classified | CPT/HCPCS: 83036; 99212 ==

== ENCOUNTER 2024-12-25 14:24 | Outpatient (AMB) | payer OTHER, SELFPAY ==
--- NOTE | 2024-12-25 14:49 | MHC.OFFVIS ---
Vital Signs 12/25/24 14:56 Height 6 ft 2 in Weight 217 lb BMI 27.9 BP 122/68 Blood Pressure Location Rt brachial Position Sitting Pulse 92 Pulse Source Pulse Oximeter Pulse Oximetry (%) 98 Oxygen Delivery Method Room Air Intake Visit Reasons: abd burning Intake Note: Sridhar presents to in office today in follow up of abd burning. CC: C.O. abd pain (epigastric and RUQ pain) due to being out of his medication. Pt also reports having pain in the same location as where his gallbladder was; however, he states that was removed many years ago. When he does take the PPI, he states that his sx are well controlled. Record Librarian Required: No Record Librarian Services: Record Librarian Offered & Declined Accompanied by: Self / Same As Patient Allergies fentanyl Allergy (Intermediate, Verified 12/25/24 14:57) itching morphine (Amber) Allergy (Intermediate, Verified 12/25/24 14:57) itch Iodinated Contrast Media (IV Dye, Iodine Containing) Allergy (Mild, Verified 12/25/24 14:57) DIFFICULTY BREATHING,VOMITING amoxicillin (From Augmentin) Adverse Reaction (Intermediate, Verified 12/25/24 14:57) Diarrhea clavulanic acid (From Augmentin) Adverse Reaction (Intermediate, Verified 12/25/24 14:57) Diarrhea metformin Adverse Reaction (Intermediate, Verified 12/25/24 14:57) stomach pain HPI HPI abd burning: Details: Assessment & Plan (1) BARROSO (nonalcoholic steatohepatitis): Comment: 06/25/2405/05/2406 06:1306:2211:03 WBC 4.9 Hgb 13.9 L Hct 41.6 L MCV 87.8 MCH 29.3 Plt Count 229 D Estimated GFR > 60 Hgb A1c (Clinic) 7.2 H Total Bilirubin 0.6 GGT 36 AST 30 ALT 53 H Alkaline Phosphatase 69 Alpha Fetoprotein 1.3 Code(s): K75.81 - Nonalcoholic steatohepatitis (BARROSO) Category: Medical (2) GERD (gastroesophageal reflux disease): Code(s): K21.9 - Gastro-esophageal reflux disease without esophagitis Category: Medical Qualifiers: Esophagitis presence: with esophagitis Esophagitis bleeding: without hemorrhage Qualified Code(s): K21.00 - Gastro-esophageal reflux disease with esophagitis, without bleeding Plan CHINESE-SPEAKING mom He continues to do well on his omeprazole. We review the labs but the US with elast has not been done yet - it seems there was confusion as he also had 2 renal US recently. He feels better than ever. ROV 6 mos. Medications: Refilled omeprazole 40 mg PO DAILY 90 caps 1RF K21.00 - Gastro-esophageal reflux disease with esophagitis, without bleeding Laboratory Tests 12/19/24 08:13 Hgb A1c (Clinic) 6.9 H TODAYS VISIT [facility] Medical History Colon cancer screening Laboratory tests ordered as part of a complete physical exam (CPE) Screening PSA (prostate specific antigen) Pre-op examination Left otitis media Weight loss, abnormal Nausea Irritable bowel syndrome with diarrhea Normal routine history and physical examination Low back pain BPH (benign prostatic hyperplasia) Poison derek dermatitis Hx of iron deficiency anemia Lumbar spondylosis Iron deficiency anemia Normal physical exam Anemia Sepsis Acute respiratory failure with hypoxia Pneumonia History of COVID-19 History of 2019 novel coronavirus disease (COVID-19) High cholesterol Arthritis Diabetes Contact dermatitis Narcotic drug use DMII (diabetes mellitus, type 2) Elevated liver transaminase level Lumbar radiculopathy, chronic Lumbar spinal stenosis Cervical radiculopathy Lumbar post-laminectomy syndrome Surgical History History of esophagogastroduodenoscopy (EGD) H/O colonoscopy History of elbow surgery History of lumbar fusion History of cholecystectomy Family History Father Liver problem Alcoholism Substance use disorder Mother No problems noted. Brother CAD (coronary artery disease) Social History Household Members: Family Housing: House Do you presently have visiting nurse or other home services: No Alcohol intake: never Patient Tobacco Use Status: Former Tobacco user Cigarette Packs Per Day: 0.5 Cigarettes Per Day: 10 Years Smoked: 10 e-Cigarette/Vaping Use: Never Used Second Hand Smoke Exposure: No service: No Current occupational status: disabled Current occupational exposures/hazards: No Cognitive needs: No (cane) Hearing needs: No Vision needs: Yes (reading glasses) Review of Systems Const Denies fatigue, Denies fever(s), Denies night sweats, Denies poor appetite and Denies weight loss ENT Reports Normal hearing present, Denies dental pain, Denies dysphagia, Denies hearing loss, Denies mouth pain, Denies odynophagia, Denies throat swelling, Denies tongue swelling and Reports other (Dentition adequate) Card Reports no additional complaints Resp Reports no additional complaints GI Details: Denies abdominal pain, Denies melena, Denies bloating, Denies hematochezia, Denies constipation, Denies GI cramping, Denies dysphagia, Denies excessive flatus, Denies early satiety, Reports heartburn, Denies diarrhea, Denies nausea, Denies odynophagia, Denies vomiting and Denies hematemesis Skin/Breast Denies pruritus, Denies lesions, Denies rash and Denies jaundice Neuro Reports Normal hearing present and Denies Abnormal speech present Endo Denies fatigue Aller/Immun Denies throat swelling and Denies tongue swelling Physical Exam Vital Signs: Last Vital Signs Pulse 92 12/25/24 14:56 BP 122/68 12/25/24 14:56 Pulse Ox 98 12/25/24 14:56 Oxygen Delivery Method Room Air 12/25/24 14:56 BMI result Body Mass Index 27.9 Const General: cooperative, no acute distress, well developed and well groomed Nutritional Appearance: average body habitus and well nourished Orientation/consciousness: oriented to person, oriented to place and oriented to time Limitations: No language barrier HEENT Head: Yes normocephalic and Yes atraumatic Eyes General: appearance normal, both eyes and all related structures Pupils: Equal, round and reactive pupils present Neck Neck: Yes normal visual inspection and Yes no lymphadenopathy Thyroid: Thyroid normal Resp Effort & Inspection: normal respiratory effort and able to speak in complete sentences Auscultation: clear to auscultation bilaterally Cardio Rate: regular rate Rhythm: regular rhythm Heart sounds: Normal, physiologic split S2 sound present Peripheral pulses: radial pulses present and posterior tibial pulses present GI Inspection: No distended and No Abdominal panniculus present Palpation (GI): Soft to palpation, nontender, no guarding, not rigid and No hepatosplenomegaly present Percussion: Yes normal to percussion Auscultation: normal bowel sounds Rectal Exam - Male: Yes deferred Skin General skin exam: no rashes or lesions noted, turgor normal, skin not dry, no jaundice, No spider nevi and no striae Rashes: no rashes Nails: normal Neuro General: oriented to person, oriented to place and oriented to time Cranial nerves: Yes Equal, round and reactive pupils present and Yes Normal hearing present Speech: No Abnormal speech present Extrem General: Yes normal to inspection, No clubbing, No cyanosis and No edema Psych Appearance: grossly normal and well kempt Mental Status: mental status grossly normal Speech and movement: Normal speech and movement present Affect: normal affect Attitude: cooperative Thought process: Normal thought process present and not confabulating Thought content: Normal thought content present Insight: Fair insight present (Psych) and Limited insight present (Psych) Judgement: Fair judgement present (Psych) and Limited judgement present (Psych) Results Reviewed Results Reviewed: Laboratory Tests 12/19/24 08:13 Hgb A1c (Clinic) 6.9 H Assessment & Plan Assessment & Plan (1) GERD (gastroesophageal reflux disease): Code(s): K21.9 - Gastro-esophageal reflux disease without esophagitis Category: Medical Qualifiers: Esophagitis bleeding: without hemorrhage Esophagitis presence: with esophagitis Qualified Code(s): K21.00 - Gastro-esophageal reflux disease with esophagitis, without bleeding (2) Irritable bowel syndrome with both constipation and diarrhea: Code(s): K58.2 - Mixed irritable bowel syndrome Category: Medical (3) BARROSO (nonalcoholic steatohepatitis): Comment: 06/25/2405/ 06:1306:2211:03 WBC 4.9 Hgb 13.9 L Hct 41.6 L MCV 87.8 MCH 29.3 Plt Count 229 D Estimated GFR > 60 Hgb A1c (Clinic) 7.2 H Total Bilirubin 0.6 GGT 36 AST 30 ALT 53 H Alkaline Phosphatase 69 Alpha Fetoprotein 1.3 Code(s): K75.81 - Nonalcoholic steatohepatitis (BARROSO) Category: Medical (4) History of cholecystectomy: Comment: Danielle 2007 Code(s): Z90.49 - Acquired absence of other specified parts of digestive tract Category: Surgical Plan He continues to do well on his omeprazole 40 mg a day. - The patient is a 64-year-old male presenting with symptoms of Gastroesophageal Reflux Disease (GERD). - Reports a burning sensation in the stomach due to running out of omeprazole for approximately one month. - Known history of Nonalcoholic Steatohepatitis (BARROSO). - Abstains from alcohol for over 22 years, with regular monitoring advised. - Questions and skepticism about alternative liver supplements like milk thistle. - Type 2 Diabetes Mellitus is present, though non-compliance with Trulicity was noted. - use injectable Trulicity prescribed, despite an ongoing oral medication regimen. It is likely that insufficient diabetes control is also affecting his liver functions. - Continue taking omeprazole as prescribed to manage stomach discomfort. - Follow up with scheduled blood tests and ultrasound to monitor liver condition. - Begin using Trulicity weekly as prescribed along with your oral diabetes medication. - Maintain current dietary restrictions, including sugar moderation and avoidance of alcohol. - Await contact from the ultrasound department for scheduling. - Follow up in four months or sooner if symptoms worsen. Orders: Orders Comprehensive Met. Panel 12/25/24 K75.81 - Nonalcoholic steatohepatitis (BARROSO) US abdomen complete 12/25/24 K75.81 - Nonalcoholic steatohepatitis (BARROSO) Medications: Refilled omeprazole 40 mg PO DAILY 90 caps 1RF K21.00 - Gastro-esophageal reflux disease with esophagitis, without bleeding Coding Level of Care Code Est Pt Level 3 (34679) Diagnoses Gastroesophageal reflux disease with esophagitis without hemorrhage K21.00 Esophagitis bleeding: without hemorrhage Esophagitis presence: with esophagitis Irritable bowel syndrome with both constipation and diarrhea K58.2 BARROSO (nonalcoholic steatohepatitis) K75.81 History of cholecystectomy Z90.49
[2024-12-25 14:56] VITALS: BP 122/68; PULSE 92; O2SAT 98; BMI 27.9
== END 2024-12-25 15:25 | disposition home or self-care (01) ==
PROVIDERS: PCP Nurse Practitioner Family; Visit Provider Nurse Practitioner
DX: K21.00 Gastro-esophageal reflux disease with esophagitis, without bleeding (principal); K58.2 Mixed irritable bowel syndrome; K75.81 Nonalcoholic steatohepatitis (NASH); Z90.49 Acquired absence of other specified parts of digestive tract
CPT/HCPCS: 99213

== ENCOUNTER → 2024-12-25 14:24 | Outpatient (BNVA) | payer OTHER, SELFPAY | PROVIDERS: PCP Nurse Practitioner Family; Visit Provider Nurse Practitioner | DX: K21.00 Gastro-esophageal reflux disease with esophagitis, without bleeding (principal); K75.81 Nonalcoholic steatohepatitis (NASH); K58.2 Mixed irritable bowel syndrome; Z90.49 Acquired absence of other specified parts of digestive tract | CPT/HCPCS: 99212 ==

== ENCOUNTER 2025-03-04 06:10 | Outpatient (REF) | payer OTHER, SELFPAY ==
--- OUTSIDE RECORDS SUMMARY | 2024-10-07 04:00 | XMS_ITS ---
Author Organization [facility] Address [address] [facility] [place] [address] Care Team Providers Care Diamond Expert Name Role Phone Vania NEW, Harshad Primary Care Provider Unavail able Vika Mendez Unavailable [phone] Medications Medication SIG (Take, Route, Frequency, Duration) Notes Start Date End Date Status Gabapentin 300 MG 1 capsule Orally Onc e a day; Duration: 30 day(s) Active Ferrous Sulfate 325 (65 Fe) MG 1 tablet Orally Once a day; Duration: 30 day(s) Active Fenofibrate 54 MG 1 tablet with food Orally Once a day; Duration: 30 day(s) Active Acetaminophen Active Ciclopirox Olamine 0.77 % 1 application to affected area Externally to feet Twice a day; Duration: 30 days Active PARoxetine HCl 20 MG 1 tablet in the morning Orally Once a day; Duration: 30 day(s) paxil Active Omeprazole 40 MG 1 capsule 30 minutes before morning meal Orally Once a day; Duration: 30 day(s) Active Methadone HCl 5 MG 1 tablet Orally Once a day Active Linagliptin tradjenta Active Lidocaine lidoderm Active Diclofenac Sodium 1 % as directed Externally voltaren Not-Taking Diclofenac Potassium 50 MG 1 tablet with food or milk as needed Orally Twice a day Not-Taking Coenzyme Q10 30 MG as directed Orally Not-Taking Tradjenta 5 MG 1 tablet Orally Once a day Active Sildenafil Citrate 50 MG 1 tablet as needed Orally Once a day; Duration: 30 day(s) viagra Active Naloxone HCl 4 MG/10ML as directed Injection narcan Not-Taking Lancets Not-Taking Lactobacillus Not-Ta mikal Sertraline HCl 25 MG Oral; Duration: 30 Days Active Encounters Encounter Location Date Provider Diagnosis [facility] [place] [address] [place] [address] 10/07/2024 Vika Mendez Plan Of Treatment No Information Progress Notes * Sridhar LACYDOB: 3 (64 yo M)Acc No.[id number]:10/07/2024 Progress Note Patient: Sridhar ALEX Provider: Maxwell Mendez DPM :1960 A ge:64 Y S ex:Male Date:10/07/2024 Address:[address] [place], [place] [id number] Pcp:Harshad Caro NP Subjective: * Chief Complaints: * * Medical History: A rthritis, Depression, Diabetes. * Medications: T aking Tradjenta 5 MG Tablet 1 tablet Orally Once a day , Taking Sildenafil Citrate 50 MG Tablet 1 tablet as needed Orally Once a day , Notes to Pharmacist: viagra, Taking PARoxetine HCl 20 MG Tablet 1 tablet in the morning Orally Once a day , Notes to Pharmacist: paxil, Taking Omeprazole 40 MG Capsule Delayed Release 1 capsule 30 minutes before morning meal Orally Once a day , Taking Methadone HCl 5 MG Tablet 1 tablet Orally Once a day , Taking Linagliptin , Notes to Pharmacist: catrachitontnadya, Taking Lidocaine , Notes to Pharmacist: lidoderm, Taking Gabapentin 300 MG Capsule 1 capsule Orally Once a day , Taking Ferrous Sulfate 325 (65 Fe) MG Tablet 1 tablet Orally Once a day , Taking Fenofibrate 54 MG Tablet 1 tablet with food Orally Once a day , Taking Acetaminophen , Taking Ciclopirox Olamine 0.77 % Cream 1 application to affected area Externally to feet Twice a day , Taking Sertraline HCl 25 MG Tablet Oral , Not-Taking/PRN Naloxone HCl 4 MG/10ML Solution as directed Injection , Notes to Pharmacist: narcan, Not-Taking/PRN Lancets , Not-Taking/PRN Lactobacillus , Not-Taking/PRN Diclofenac Sodium 1 % Gel as directed Externally , Notes to Pharmacist: voltaren, Not-Taking/PRN Diclofenac Potassium 50 MG Tablet 1 tablet with food or milk as needed Orally Twice a day , Not-Taking/PRN Coenzyme Q10 30 MG Capsule as directed Orally Objective: * Vitals: Assessment: Plan: * Treatment: * Images: * The named appointment provid er may or may not be the originator of this progress note, and it is not deemed complete until electronically signed by the appointment provider. Sign off status: Pending * Provider: Maxwell Mendez DPM Date: 0 10/07/2024 Generated for Holly voss/Jennifer/Leonela on: 1 05/05/2024 06:14 AM EST
--- OUTSIDE RECORDS SUMMARY | 2025-01-07 04:15 | XMS_ITS ---
Author Organization [facility] Address [address] [place] [address] Care Team Providers Care Global Chief Creative Officer Name Role Phone Vania NEW, Harshad Primary Care Provider Unavail Vika Zuleta Unavailable [phone] Encounters Encounter Location Date Provider Diagnosis [address] [address] 01/07/2025 Vika Mendez Plan Of Treatment No Information Progress Notes * Sridhar LACYDOB: 3 (64 yo M)Acc No.[id number]:01/07/2025 Progress Note Patient: Sridhar ALEX Provider: Maxwell Mendez DPM :1960 A ge:64 Y S ex:Male Date:01/07/2025 Address:[address] [place], [place] [id number] Pcp:Harshad Caro NP Subjective: * Chief Complaints: * * Medical History: Objective: * Vitals: Assessment: Plan: * Treatment: * Images: * The named appointment provid er may or may not be the originator of this progress note, and it is not deemed complete until electronically signed by the appointment provider. Sign off status: Pending * Provider: Maxwell Mendez DPM Date: Generated for Holly voss/Jennifer/Leonela on: 05/05/2024 06:13 AM EST
--- OUTSIDE RECORDS SUMMARY | 2025-02-25 10:15 | XMS_ITS ---
Author Organization [facility] Address [address] [place] [address] Care Team Providers Care Outside Cutter Name Role Phone Vania NEW, Harshad Primary Care Provider Unavail Vika Zuleta Unavailable [phone] Encounters Encounter Location Date Provider Diagnosis [address] [address] 02/25/2025 Vika Mendez Plan Of Treatment No Information Progress Notes * Sridhar LACYDOB: 3 (64 yo M)Acc No.[id number]:02/25/2025 Progress Note Patient: Sridhar ALEX Provider: Maxwell Mendez DPM :1960 A ge:64 Y S ex:Male Date:02/25/2025 Address:[address] [place], [place] [id number] Pcp:Harshad Caro NP Subjective: * Chief Complaints: * * Medical History: Objective: * Vitals: Assessment: Plan: * Treatment: * Images: * The named appointment provid er may or may not be the originator of this progress note, and it is not deemed complete until electronically signed by the appointment provider. Sign off status: Pending * Provider: Maxwell Mendez DPM Date: 04/28/2024 Generated for Holly voss/Jennifer/Navidsmitting on: 05/05/2024 06:14 AM EST
--- OUTSIDE RECORDS SUMMARY | 2025-03-04 06:14 | XMS_ITS | Encounter Summary ---
Author Organization [facility] Address [address] [facility] [address] [place] [address] Care Team Providers Care Biofuels Production Technician Name Role Phone Unavailable Primary Care Provider [...]
--- OUTSIDE RECORDS SUMMARY | 2025-03-04 06:14 | XMS_ITS | Patient Health Record ---
Author Organization [facility] Address [address] [place] [address] Care Team Providers Care Manager Multicultural Name Role Phone Vee (RETIRED) Carlos Eduardo RAY Primary Care Provide r Enrico Wells Unavailable [phone] Allergies Allergen (clinical drug ingredient) Drug/Non Drug Allergy documented on EMR Reaction Allergy Type Onset Date Status CT scan dye (uncoded) Unknown Allergy Active Reason For Referral No Information Medications Medication SIG (Take, Route, Frequency, Duration) Notes Start Date End Date Status Cymbalta 60 MG Capsule Delayed Release Particles 1 capsule Orally Once a day Active Dulcolax (colon prep) 5 MG Tablet Delayed Release take at 3:00 p.m and 7:00p.m. Orally two tablets twice a day for one day; Duration: 1 day 08/05/2017 Active oxyCODONE-Acetaminop hen 10-325 MG Tablet (Schedule II Drug) Oral; Duration: 7 Active NexIUM 20 MG Capsule Delayed Release 1 capsule Orally Once a day uses just occasionally prn GERD Active Methadone HCl 1 Tablet 1 tablet Orally as directed Active Crestor 20 MG Tablet 1 tablet Orally Once a day Active metFORMIN HCl 500 MG Tablet TK 1 T PO BID WC Oral; Duration: 90 Active MiraLax (colon prep) 8.3 ounce ((238) grams mixed with Gatorade or Crystal Light orally begin at 5:00 p.m. the day before the procedure; Duration: 1 day 08/05/2017 Active Rosuvastatin Calcium 10 MG Tablet TK 1 T PO QD Oral; Duration: 90 Active Immunizations Vaccine Route Administration Date Status Comme nts Flu vaccine no Preserv 3 and > Unknown 02/02/2015 Admin istered Hepatitis A (adult) Unknown 06/30/2014 Administered Influenza Unknown 11/18/2015 Administered Influenza Unknown 11/17/2016 Administered Social History Social History Additional Details Category Social Info Options Details Miscellaneous: Marital status: Occupation: unemployed Section Notes: Nonsmoker x 4 years; Heavy a lcohol use, but reports having stopped drinking in August,; intranasal cocaine use, with reported abstinence since 2010. Nonsmoker x 4 years; Heavy a lcohol use, but reports having stopped drinking in August,; intranasal cocaine use, with reported abstinence since 2010. Nonsmoker x 4 years; Heavy a lcohol use, but reports having stopped drinking in August,; intranasal cocaine use, with reported abstinence since 2010. Nonsmoker x 4 years; Heavy a lcohol use, but reports having stopped drinking in August,; intranasal cocaine use, with reported abstinence since 2010. Nonsmoker x 4 years; Heavy a lcohol use, but reports having stopped drinking in August,; intranasal cocaine use, with reported abstinence since 2010. Nonsmoker x 4 years; Heavy a lcohol use, but reports having stopped drinking in August,; intranasal cocaine use, with reported abstinence since 2010. Problems Problem Type SNOMED Code ICD Code Onset Dates Problem Status W/U Status Risk Notes Problem Screening for malignant neoplasm of colon (697825740) Encounter for screening for malignant neoplasm of colon (Z12.11) Active confirmed Problem Screening for malignant neoplasm of rectum (950833112) Encounter for screening for malignant neoplasm of rectum (Z12.12) Active confirmed Problem Preprocedural examination (953420074966663) Preprocedural examination (Z01.818) Active confirmed Problem Hepatitis C antibody test positive (616794197) Hepatitis C antibody test positive (R76.8) Active confirmed Problem Abdominal pain (02795403) Abdominal pain, right lateral (R10.9) Active confirmed Problem Long-term current use of drug therapy (583712805) High risk medications (not anticoagulants) long-term use (Z79.899) Active confirmed Plan Of Treatment Future Test Test Name Order Date COLONOSCOPY 07/31/2017 Insurance Providers Payer Name Payer Address Payer Phone Subscriber Number Group Number Insured Name Patient Relationship to Insured Coverage Start Date Coverage End Date MEDICARE OF [place] [address] [place] [id number] ROSEMARY BEAR Self - patient is the insured MEDICAID OF [facility] [address] [place] [phone] [id number] ROSEMARY BEAR Self - patient is the insured Medical (General) History Medical History History ICD Code Hyperlipidemia Depression Chronic back pain Denies [place],DM,CVA,Lung disease,renal dise ase Pneumonia Negative upper endoscopy [...]
--- OUTSIDE RECORDS SUMMARY | 2025-03-04 06:14 | XMS_ITS | Encounter Summary ---
Author Organization [employer] Address [address] [facility] 7t [place] [address] Care Team Providers Care Commercial Credit Head Name Role Phone Unavailable Primary Care Provider Unavailabl e Reason for Visit * Reason Onset Date Comments rs cancelled appt 03/10/2024 Encounter Details Date Type Department Care Team (Late st Contact Info) Description 03/10/2024 Telephone C [facility] [address] [place], [place] [phone] Henri Barroso [address] [place], [place] [phone] rs cancelled appt Social History Tobacco Use [...]
--- OUTSIDE RECORDS SUMMARY | 2025-03-04 06:15 | XMS_ITS | Patient Health Record ---
Author Organization [facility] Address [address] [place] [address] Care Team Providers Care Associate Software Engineer Name Role Phone Vania NEW, Harshad Primary Care Provider Unavail able Vika Mendez Unavailable [phone] Allergies No Known Allergies Reason For Referral [...] Polyneuropathy due to type 2 diabetes mellitus (999727159) Type 2 diabetes mellitus with polyneuropathy (E11.42) Active confirmed Encounters Encounter Location Date Provider Diagnosis [facility] [address] 10/07/2024 Vika Mendez [facility] [address] 01/06/2025 Vika Mendez Plan Of Treatment No Information Insurance Providers Payer Name Payer Address Payer Phone Subscriber Number Group Number Insured Name Patient Relationship to Insured Coverage Start Date Coverage End Date [facility] Claims [address] [place] [id number] Sridhar Lacy Self - patient is the insured Medical (General) History Medical History History ICD Code Arthritis Depression Diabetes Surgical History Surgery Date(Month/Year)
--- OUTSIDE RECORDS SUMMARY | 2025-03-04 06:15 | XMS_ITS | Clinical Summary ---
Author Organization [employer] Address [address] [facility] 7[address] [place] [address] Care Team Providers Care Diesel Lube Tech Name Role Phone Unavailable Primary Care Provider [...] Type 2 diabetes mellitus with polyneuropathy 11/2024 Social History Tobacco Use Types Packs/Day Years [...] Dental Prophylaxis 08/20/2024 02/19/2024 COVID-19 Vaccine ( - season) 2024 Influenza Vaccine (#1) 2024 , 01/17/2023, 03/18/2020, Additional history exists Dental X-Ray: [...] Procedure Name Priority Date/Time Associated Diagnosis Comments Full PROPHYLAXIS - ADULT Routine 024 9:00 AM EST Partial edentulism, unspecified edentulism class BITEWINGS - 4 RADIOGRAPHIC IMAGES Routine 02/19/2024 9:00 AM EST Partial edentulism, unspecified edentulism class COMPREHENSIVE ORAL EVALUATION - NEW OR ESTABLISHED PATIENT Routine 02/19/2024 9:00 AM EST Partial edentulism, unspecified edentulism class from Last 3 Months or Most Recently Relevant to Health Maintenance Insurance DENTAL [facility]
[2025-03-04 07:39] LABS: Alanine Aminotransferase 35 U/L (0-40); Albumin Level 4.7 g/dL (3.5-5.0); Alkaline Phosphatase 58 U/L (39-117); Anion Gap 11 (12-20); Aspartate Amino Transferase 27 U/L (5-37); Blood Urea Nitrogen 19 mg/dL (9-16); Calcium 9.7 mg/dL (8.4-10.2); Carbon Dioxide 31 mmol/L (22-29); Chloride 104 mmol/L (96-108); Cholesterol 241 mg/dL (<200); Estimated Glomerular Filt Rate > 60; HDL Cholesterol 50 mg/dL (>40); Potassium 4.2 mmol/L (3.3-5.1); Sodium 142 mmol/L (135-145); Total Protein 7.5 g/dL (6.5-8.0); Triglycerides 131 mg/dL (<150)
== END 2025-03-04 06:11 | disposition home or self-care (01) ==
LOC: HO.LAB 06:10
PROVIDERS: Nurse Practitioner; PCP Nurse Practitioner Family; Visit Provider Nurse Practitioner Family
DX: K75.81 Nonalcoholic steatohepatitis (NASH) (principal); E78.5 Hyperlipidemia, unspecified; E55.9 Vitamin D deficiency, unspecified
CPT/HCPCS: 36415; 80053; 80061; 82306

== ENCOUNTER 2025-03-04 07:40 | Outpatient (REF) | payer OTHER, SELFPAY ==
--- NOTE | ~2025-03-04 | US_ITS ---
CLINICAL HISTORY: K75.81 - Nonalcoholic steatohepatitis (BARROSO) US abdomen complete Comparison: None Findings: Visualized pancreas is normal. Aorta and inferior vena cava are normal caliber. The liver is mildly enlarged and reveals diffuse increased echogenicity, compatible with steatosis.. Right lobe length is 18.6 cm. There is no intrahepatic bile duct dilatation. The common duct is 4 mm in diameter. The gallbladder is surgically absent. There is no sonographic De León sign. The main portal vein is antegrade The right kidney is normal size, 11.4 cm in length. There is an interpolar hypoechoic lesion measuring 21 x 18 x 16 mm common nonspecific although possible angiomyolipoma. The left kidney is normal, 11.6 cm in length. The spleen is normal, 11.6 cm in length. Impression: 1. 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 Consider further characterization with renal MRI or renal mass protocol CT. 2. Evidence of hepatic steatosis. 3. Prior cholecystectomy. This document has been electronically signed by: Ozzy Lincoln MD on 03/04/2025 16:04:56
== END 2025-03-04 07:41 | disposition home or self-care (01) ==
LOC: HO.US 07:40
PROVIDERS: PCP Nurse Practitioner Family; Visit Provider Nurse Practitioner
DX: K75.81 Nonalcoholic steatohepatitis (NASH) (principal)
CPT/HCPCS: 36415; 76700; 80053; 80061; 82306

== ENCOUNTER → 2025-03-04 07:42 | Outpatient (BNV) | payer OTHER, SELFPAY | PROVIDERS: PCP Nurse Practitioner Family; Visit Provider Radiology Diagnostic Radiology | DX: K75.81 Nonalcoholic steatohepatitis (NASH) (principal); N28.9 Disorder of kidney and ureter, unspecified; Z90.49 Acquired absence of other specified parts of digestive tract | CPT/HCPCS: 76700 ==

== ENCOUNTER 2025-03-06 09:37 | Outpatient (AMB) | payer OTHER, SELFPAY ==
--- OUTSIDE RECORDS SUMMARY | 2024-10-07 04:00 | XMS_ITS ---
Author Organization [facility] Address [address] [facility] [place] [address] Care Team Providers Care Oncology Registrar Name Role Phone Vania NEW, Harshad Primary Care Provider Unavail able Vika Mendez Unavailable [phone] Medications Medication SIG (Take, Route, Frequency, Duration) [...] Active Encounters Encounter Location Date Provider Diagnosis [facility] [place] [address] [place] [address] 10/07/2024 Vika Mendez Plan Of Treatment No Information Progress Notes * Sridhar LACYDOB: 3 (64 yo M)Acc No.[id number]:10/07/2024 Progress Note Patient: Sridhar ALEX Provider: Maxwell Mendez DPM :1960 A ge:64 Y S ex:Male Date:10/07/2024 Address:[address] [place], [place] [id number] Pcp:Harshad Caro NP Subjective: * Chief Complaints: [...] DPM Date: 0 10/07/2024 Generated for Holly voss/Jennifer/Angélicaitting on: 1 05/07/2024 10:24 AM EST
--- OUTSIDE RECORDS SUMMARY | 2025-01-07 04:15 | XMS_ITS ---
Author Organization [facility] Address [address] [place] [address] Care Team Providers Care Building Construction Ironworker Name Role Phone Vania NEW, Harshad Primary Care Provider Unavail Vika Zuleta Unavailable [phone] Encounters Encounter Location Date Provider Diagnosis [address] [address] 01/07/2025 Vika Mendez Plan Of Treatment No Information Progress Notes * Sridhar LACYDOB: 3 (64 yo M)Acc No.[id number]:01/07/2025 Progress Note Patient: Sridhar ALEX Provider: Maxwell Mendez DPM :1960 A ge:64 Y S ex:Male Date:01/07/2025 Address:[address] [place], [place] [id number] Pcp:Harshad Caro NP Subjective: * Chief Complaints: * * Medical History: Objective: * Vitals: Assessment: Plan: * Treatment: * Images: * The named appointment provid er may or may not be the originator of this progress note, and it is not deemed complete until electronically signed by the appointment provider. Sign off status: Pending * Provider: Maxwell Mendez DPM Date: Generated for Holly voss/Jennifer/eTransmitting on: 05/07/2024 10:24 AM EST
--- OUTSIDE RECORDS SUMMARY | 2025-02-25 10:15 | XMS_ITS ---
Author Organization [facility] Address [address] [place] [address] Care Team Providers Care Retail Coverage Merchandiser Name Role Phone Vania NEW, Harshad Primary Care Provider Unavail Vika Zuleta Unavailable [phone] Encounters Encounter Location Date Provider Diagnosis [address] [address] 02/25/2025 Vika Mendez Plan Of Treatment No Information Progress Notes * Sridhar LACYDOB: 3 (64 yo M)Acc No.[id number]:02/25/2025 Progress Note Patient: Sridhar ALEX Provider: Maxwell Mendez DPM :1960 A ge:64 Y S ex:Male Date:02/25/2025 Address:[address] [place], [place] [phone] Pcp:Harshad Caro NP Subjective: * Chief Complaints: [...] Mendez DPM Date: 04/28/2024 Generated for Holly voss/Jennifer/eTransmitting on: 05/07/2024 10:24 AM EST
--- NOTE | 2025-03-06 09:40 | A.OFFPC_ITS ---
Vital Signs 03/06/25 09:45 Height 6 ft 2 in Weight 219 lb BMI 28.1 BP 131/71 Blood Pressure Location Rt brachial Position Sitting Respiration 16 Pulse 85 Pulse Source Pulse Oximeter Temp 97.7 F Temp Source Oral Pulse Oximetry (%) 96 Oxygen Delivery Method Room Air Intake Visit Reasons: 2 mos HLD, vit d def Intake Note: patient here for 2 month follow up for HLD and vit d def Armature Winder Required: No Allergies fentanyl Allergy (Intermediate, Verified 03/06/25 09:52) itching morphine (Amber) Allergy (Intermediate, Verified 03/06/25 09:52) itch Iodinated Contrast Media (IV Dye, Iodine Containing) Allergy (Mild, Verified 1 05/07/24 09:52) DIFFICULTY BREATHING,VOMITING amoxicillin (From Augmentin) Adverse Reaction (Intermediate, Verified 03/06/25 09:52) Diarrhea clavulanic acid (From Augmentin) Adverse Reaction (Intermediate, Verified 03/06/25 09:52) Diarrhea metformin Adverse Reaction (Intermediate, Verified 03/06/25 09:52) stomach pain Medication List - Last Reconciled 03/06/25 by Eldon Caro CNP acetaminophen (Tylenol Extra Strength) 500 mg PO Q6H PRN atorvastatin (Lipitor) 20 mg PO BEDTIME 30 days blood sugar diagnostic (FreeStyle Lite Strips) POC 4 times daily blood-glucose meter (FreeStyle Lite Meter kit) check blood sugars daily and pern cholecalciferol (vitamin D3) 50 mcg PO DAILY 90 days dulaglutide (Trulicity) 0.75 mg (0.5 mL) subcut QWEEK 4 weeks fenofibrate 54 mg PO DAILY 90 days fluticasone propionate 50 mcg/actuation (Flonase Allergy Relief) 1 spray intranasal Q12H gabapentin 300 mg PO BID 90 days insulin syringe-needle U-100 (Advocate Syringes) As directed lancets (FreeStyle Lancets) POC testing 4 times daily lidocaine 5% 1 patch topical DAILY linagliptin (Tradjenta) 5 mg PO DAILY meloxicam 15 mg PO DAILY PRN 30 days naloxone 4 mg/actuation (Narcan) 4 mg intranasal Q2M PRN omeprazole 40 mg PO DAILY safety needles (BD [facility] Luer-Pilo) As directed for biweekly injection (injecting needle)- 2 per month sertraline 25 mg PO DAILY syringe with cannula,disposabl As directed for biweekly Testosterone injection- 2 per month syringe with needle (BD Luer-Pilo Syringe) As directed testosterone 2 pumps topical DAILY 30 days Tobacco use date assessed: 03/06/25 Dental Screening Dental Screen Date: 03/06/25 Did you have a dental visit in the last 12 months?: Yes Did you have a dental problem in the last 6 months where you did not have access to dental care?: No Was dental information given to patient?: Patient has dentist HPI HPI Comments History of Present Illness Details 64-year-old male presents for hyperlipid emia vitamin-D deficiency follow-up. He admits to taking his medications as prescribed without adverse reactions. He notes that he has been taking vitamin D3 25 mcg daily instead of 50 mcg daily that was adjusted in December; he states that the pharmacy did not honor refill of the new script. He takes atorvastatin 20 mg at lunchtime. He notes he has been making healthy lifestyle changes. He offers no complaints and denies acute symptoms at this time. [facility] Medical History Colon cancer screening Laboratory tests ordered as part of a complete physical exam (CPE) Screening PSA (prostate specific antigen) Pre-op examination Left otitis media Weight loss, abnormal Nausea Irritable bowel syndrome with diarrhea Normal routine history and physical examination Low back pain BPH (benign prostatic hyperplasia) Poison derek dermatitis Hx of iron deficiency anemia Lumbar spondylosis Iron deficiency anemia Normal physical exam Anemia Sepsis Acute respiratory failure with hypoxia Pneumonia History of COVID-19 History of 2019 novel coronavirus disease (COVID-19) High cholesterol Arthritis Diabetes Contact dermatitis Narcotic drug use DMII (diabetes mellitus, type 2) Elevated liver transaminase level Lumbar radiculopathy, chronic Lumbar spinal stenosis Cervical radiculopathy Lumbar post-laminectomy syndrome Surgical History History of esophagogastroduodenoscopy (EGD) H/O colonoscopy History of elbow surgery History of lumbar fusion History of cholecystectomy Family History Father Liver problem Alcoholism Substance use disorder Mother No problems noted. Brother CAD (coronary artery disease) Social History Household Members: Family Housing: House Do you presently have visiting nurse or other home services: No Alcohol intake: never Patient Tobacco Use Status: Former Tobacco user Cigarette Packs Per Day: 0.5 Cigarettes Per Day: 10 Years Smoked: 10 e-Cigarette/Vaping Use: Never Used Second Hand Smoke Exposure: No service: No Current occupational status: disabled Current occupational exposures/hazards: No Cognitive needs: No (cane) Hearing needs: No Vision needs: Yes (reading glasses) Questionnaire PHQ-9 Over the last 2 weeks, how often have you been bothered by any of the following problems? 1. Little interest or pleasure in doing things: several days 2. Feeling down, depressed, or hopeless: several days Source: Developed by Drs. Enrico Chiang, Kassandra Neville, Farhat Pandey and colleagues, with an educational mann from [employer]. Thrive Questionnaire Date Thrive assessed: 04/29/24 NICOLE-7 AMB Questionnaire NICOLE-7 Date NICOLE - 7 assessed: 11/04/24 Source: Developed by Drs. Enrico Chiang, Kassandra Neville, Farhat Pandey and colleagues, with an educational mann from [employer]. Review of Systems Const Details: Const Denies chills, Denies fatigue, Denies fever(s), Denies headache(s) and Denies weakness ENT Denies dizziness and Denies headache(s) Card Denies chest pain, Denies lightheadedness, Denies dyspnea and Denies other (Palpitations) Resp Denies cough, Denies dyspnea, Denies wheezing and Denies other ( shortness of breath) GI Denies abdominal pain, Denies melena, Denies hematochezia, Denies change in bowel habits, Denies dyspepsia and Denies nausea Denies hematuria and Denies dysuria Musc Denies abnormal gait, Denies myalgias, Denies arthralgias, Denies numbness and Denies tingling Skin/Breast Denies rash, Denies unusual bruising and Denies wounds Neuro Denies abnormal gait, Denies dizziness, Denies headache(s), Denies memory loss, Denies numbness, Denies Sensory deficit (Neuro), Denies tingling and Denies weakness Psych Denies anxiety, Denies depression, Denies memory loss Endo Denies cold intolerance, Denies fatigue, Denies heat intolerance, Denies polydipsia and Denies polyuria Aller/Immun Denies wheezing Physical exam (Primary Care) Vital Signs: Last Vital Signs Temp 97.7 F 03/06/25 09:45 Pulse 85 03/06/25 09:45 Resp 16 03/06/25 09:45 BP 131/71 03/06/25 09:45 Pulse Ox 96 03/06/25 09:45 Oxygen Delivery Method Room Air 03/06/25 09:45 BMI result Body Mass Index 28.1 Tobacco/Smoking Status: Tobacco use Status Tobacco use date assessed 03/06/25 03/06/25 09:48 Patient Tobacco Use Status Former Tobacco user 03/06/25 09:42 e-Cigarette/Vaping Use Never Used 03/06/25 09:42 Thrive Assessment: Date of Thrive Assessment Date Thrive assessed 04/29/24 03/06/25 09:42 Const Other: General: no acute distress and well developed Nutritional Appearance: well nourished Orientation/consciousness: patient oriented x3 HENMT Head: Yes normocephalic and Yes atraumatic Eyes General: appearance normal, both eyes and all related structures Pupils: Equal, round and reactive pupils present EOM: EOMs intact bilaterally Resp Effort & Inspection: normal respiratory effort Auscultation: clear to auscultation bilaterally General: Yes no CVA tenderness Back/Spine/Pelvis Back: no CVA tenderness Cervical Spine: cervical ROM normal and No Cervical spine tenderness Thoracic/Lumbar Spine: thoraco-lumbar ROM normal, No pain with thoraco-lumbar ROM, No thoracic spinal tenderness and No lumbar spinal tenderness Extrem General: Yes normal to inspection, No edema and No calf tenderness Skin General: warm and dry. Normal skin color. Normal skin turgor Neuro General: patient oriented x3, gait normal and no focal neuro deficit Cranial nerves: Yes Equal, round and reactive pupils present Cognition (Neuro): normal cognition Gait exam (Neuro): Normal gait present Sensory Exam: No Sensory deficit (Neuro) Psych Appearance: grossly normal Affect: normal affect Attitude: cooperative Thought process: Normal thought process present Coding Level of Care Code Est Pt Level 4 (76893) Diagnoses Hyperlipidemia E78.5 Vitamin D deficiency E55.9 Assessment & Plan Assessment & Plan (1) Hyperlipidemia: Code(s): E78.5 - Hyperlipidemia, unspecified Category: Medical Plan: Recent total cholesterol and LDL levels elevated, 241 and 165 respectively, previous levels were 236 and 164 respectively. Will increase atorvastatin to 40 mg daily; advised to take as prescribed at bedtime. Advised to limit foods high in saturated fat and avoid foods high in trans fat. Routine exercise encouraged. Fast for 10-12 hours, may drink water, and repeat lipid panel blood in 2-3 months. Follow-up in 1 month for transfer of care with a new PCP within the practice. Return sooner with symptoms or concerns. Verbalized understanding and agreed with the plan. (2) Vitamin D deficiency: Code(s): E55.9 - Vitamin D deficiency, unspecified Category: Medical Plan: Recent vitamin-D level is low, 20.6, previous level was 21.9. He notes that he has been taking vitamin D3 25 mcg daily instead of 50 mcg daily because the pharmacy did not refill the medication when the dose was increased. The offers nurse confirmed with the pharmacy that the patient in fact picked up vitamin D3 50 mcg daily shortly after a was ordered. Will increase vitamin D3 to 75 mcg daily; advised to take as prescribed. Repeat vitamin-D blood work in 2-3 months. Verbalized understanding and agreed with the plan. Orders: Orders Vitamin D 25-OH Total 2 Weeks E55.9 - Vitamin D deficiency, unspecified Lipid Panel 2 Months E78.5 - Hyperlipidemia, unspecified Medications: New cholecalciferol (vitamin D3) 75 mcg PO DAILY 30 tabs 3RF 30 days atorvastatin (Lipitor) 40 mg PO BEDTIME 30 tabs 3RF 30 days Discontinued atorvastatin (Lipitor) Discontinued Reason: Doctor's Order 20 mg PO BEDTIME 30 days 30 tabs 3RF cholecalciferol (vitamin D3) Discontinued Reason: Doctor's Order 50 mcg PO DAILY 90 days 90 tabs 1RF
[2025-03-06 09:45] VITALS: BP 131/71; PULSE 85; RESP 16; TEMP 36.5; O2SAT 96; BMI 28.1
--- OUTSIDE RECORDS SUMMARY | 2025-03-06 10:24 | XMS_ITS | Encounter Summary ---
Author Organization [employer] [facility] Address [address] [place] [address] Care Team Providers Care Business Control Manager Name Role Phone Unavailable Primary Care [...]
--- OUTSIDE RECORDS SUMMARY | 2025-03-06 10:25 | XMS_ITS | Encounter Summary ---
Author Organization [employer] Address [address] [facility] [address] [facility] [address] [place] [address] Care Team Providers Care Airline Station Agent Name Role Phone Unavailable Primary Care Provider Unavailabl e Reason for Visit * Reason Onset Date Comments rs cancelled appt 03/10/2024 Encounter Details Date Type Department Care Team (Late st Contact Info) Description 03/10/2024 Telephone [facility] [address], [place] [phone] Henri Barroso [address] [place], [place] [phone] rs cancelled appt Social History Tobacco Use [...]
--- OUTSIDE RECORDS SUMMARY | 2025-03-06 10:25 | XMS_ITS | Patient Health Record ---
Author Organization [facility] Address [address] [place] [address] Care Team Providers Care Hide Trimmer Name Role Phone Vee (RETIRED) Carlos Eduardo RAY Primary Care Provide r En[place] Wells Unavailable [phone] Allergies Allergen (clinical drug ingredient) Drug/Non Drug [...] Problem Screening for malignant neoplasm of colon (898145373) Encounter for screening for malignant neoplasm of colon (Z12.11) Active confirmed Problem Screening for malignant neoplasm of rectum (709671222) Encounter for screening for malignant neoplasm of rectum (Z12.12) Active confirmed Problem Preprocedural examination (000394087169302) Preprocedural examination (Z01.818) Active confirmed Problem Hepatitis C antibody test positive (132328048) Hepatitis C antibody test positive (R76.8) Active confirmed Problem Abdominal pain (00183067) Abdominal pain, right lateral (R10.9) Active confirmed Problem Long-term current use of drug therapy (719194490) High risk medications (not anticoagulants) long-term use (Z79.899) Active confirmed Plan Of Treatment Future Test Test Name Order Date COLONOSCOPY 07/31/2017 Insurance Providers Payer Name Payer Address Payer Phone Subscriber Number Group Number Insured Name Patient Relationship to Insured Coverage Start Date Coverage End Date MEDICARE OF [place] [address] [place] [id number] ROSEMARY BEAR Self - patient is the insured MEDICAID OF [facility] [address] [place] [phone] [id number] ROSEMARY BEAR Self - patient is the insured Medical (General) History Medical History History ICD Code Hyperlipidemia Depression Chronic back pain Denies MS,DM,CVA,Lung disease,renal dise ase Pneumonia Negative upper endoscopy [...]
--- OUTSIDE RECORDS SUMMARY | 2025-03-06 10:25 | XMS_ITS | Clinical Summary ---
Author Organization [employer] Address [address] [facility] [address] [place] [address] Care Team Providers Care Robotic Welder Name Role Phone Unavailable Primary Care Provider [...] Recently Relevant to Health Maintenance Insurance [facility]
--- OUTSIDE RECORDS SUMMARY | 2025-03-06 10:25 | XMS_ITS | Patient Health Record ---
Author Organization [facility] Address [address] [place] [address] Care Team Providers Care Acura Sales Consultant Name Role Phone Vania NEW, Harshad Primary Care Provider Unavail able Vika Mendez Unavailable [phone] Allergies No Known Allergies Reason For Referral [...] Polyneuropathy due to type 2 diabetes mellitus (671522549) Type 2 diabetes mellitus with polyneuropathy (E11.42) Active confirmed Encounters Encounter Location Date Provider Diagnosis [facility] [address] 10/07/2024 Vika Mendez [facility] [address] 01/06/2025 Vika Mendez Plan Of Treatment No Information Insurance Providers Payer Name Payer Address Payer Phone Subscriber Number Group Number Insured Name Patient Relationship to Insured Coverage Start Date Coverage End Date [facility] [employer] Claims [address] [place] [id number] Sridhar Lacy Self - patient is the insured Medical (General) History Medical History History ICD Code Arthritis Depression Diabetes Surgical History Surgery Date(Month/Year)
== END 2025-03-06 10:08 | disposition home or self-care (01) ==
LOC: HO.HMCFM 09:38
PROVIDERS: PCP Nurse Practitioner Family; Visit Provider Nurse Practitioner Family
DX: E78.5 Hyperlipidemia, unspecified (principal); E55.9 Vitamin D deficiency, unspecified

== ENCOUNTER → 2025-03-06 09:37 | Outpatient (BNVA) | payer OTHER, SELFPAY | PROVIDERS: PCP Nurse Practitioner Family; Visit Provider Nurse Practitioner Family | DX: E78.5 Hyperlipidemia, unspecified (principal); E55.9 Vitamin D deficiency, unspecified; Z79.899 Other long term (current) drug therapy | CPT/HCPCS: 99212 ==